=== PATIENT | male | born 1945 ===

== ENCOUNTER 2016-04-24 13:03 | Inpatient (IN) | payer OTHER, MEDICAID ==
[2016-04-21 19:31] VITALS: BMI 31.8
[2016-04-24] MEDS ORDERED: Sodium Chloride 3% for Inhalation 4 ML VIAL.NEB IH PRN (16:21)
[2016-04-24] MEDS ORDERED: Tuberculin 5 Units/0.1 ml Inj ID ONE (16:42)
[2016-04-24] MEDS ORDERED: Piperacillin/Tazobact 3.375 GM in Sodium Chloride 0.9% 100 ML IVPB SCH (16:45)
[2016-04-24 16:59] VITALS: RESP 20
[2016-04-24] MEDS ORDERED: MethylPREDNISolone 40 mg Vial IV SCH (17:00)
[2016-04-24] MEDS: methylPREDNISolone 40 MG in Sodium Chloride 0.9% 50 ML IVPB SCH (17:56)
[2016-04-24] MEDS: Albuterol-Ipratrop 3 mg / 0.5 (3 ml) UD INH SCH ×2 (19:54→23:51)
[2016-04-24] MEDS: Acetylcysteine 10% 4 ML IH SCH (19:54)
[2016-04-24] MEDS: Budesonide 0.25 mg/2 ml Inhal Susp UD INH SCH (19:55)
[2016-04-24] MEDS ORDERED: Patient's Own Med (Vancomycin 1 Gm [Vancomycin 1gm In Normal Saline Addvantage] 1 GM) IVPB SCH (21:00)
[2016-04-24] MEDS ORDERED: Patient's Own Med (Ciprofloxacin Iv 400 MG) IVPB SCH (21:00)
[2016-04-24] MEDS: Ciprofloxacin 400mg/200ml D5W 200 ML IVPB SCH (21:07)
[2016-04-24] MEDS: Piperacillin/Tazobact 3.375 GM in Sodium Chloride 0.9% 100 ML IVPB SCH (21:07)
[2016-04-24] MEDS: Promethazine/Cod 6.25mg-10mg/5ml Syr UD PO PRN (21:59)
[2016-04-24] MEDS ORDERED: Patient's Own Med (Piperacill/Tazo 3.375gm In Dex [Zosyn 3.375 Gm Iv] 3.375 GM) IVPB SCH (22:00)
[2016-04-25] MEDS: methylPREDNISolone 40 MG in Sodium Chloride 0.9% 50 ML IVPB SCH ×3 (01:45→17:45)
[2016-04-25] MEDS: Piperacillin/Tazobact 3.375 GM in Sodium Chloride 0.9% 100 ML IVPB SCH ×4 (04:31→23:33)
[2016-04-25] MEDS: Albuterol-Ipratrop 3 mg / 0.5 (3 ml) UD INH SCH ×6 (04:50→23:27)
[2016-04-25] MEDS: Budesonide 0.25 mg/2 ml Inhal Susp UD INH SCH ×2 (08:02→20:02)
[2016-04-25] MEDS: Acetylcysteine 10% 4 ML IH SCH ×4 (08:02→20:02)
[2016-04-25] MEDS: Ciprofloxacin 400mg/200ml D5W 200 ML IVPB SCH ×2 (09:00→20:49)
[2016-04-25] MEDS: Metoprolol Succinate 50 mg XL Tab PO SCH (09:01)
[2016-04-25] MEDS: Pantoprazole 40 mg EC Tab PO SCH (09:01)
[2016-04-25] MEDS: Promethazine/Cod 6.25mg-10mg/5ml Syr UD PO PRN ×2 (09:08→22:37)
--- NOTE | 2016-04-25 16:42 | CP.PCM.HP ---
History of Present Illness - History of Present Illness History of Present Illness: 70 y/o M, seen in ER [facility] initially on 04/21/16 c/o of SOB, persistent productive cough, tactile fever for one week [employer] with no relief. Pt was admitted with Dx of COPD Exacerbation, also was Tx for CAD, HTN, R/A, O/A. On 04/24/16, Pt was stable to be transferred to TCU unit to continue abx tx for COPD Exacerbation. On today's visit, Pt continue with cough, scanty amount of sputum, c/o of difficulty to bring up phlegms. Present on Admission - Present on Admission Any Indicators Present on Admission: No Review of Systems - Constitutional Constitutional: Other (negative) - EENT Eyes: Other (Cataract L eye) Ears: Other (negative) Nose/Mouth/Throat: Other (negative) - Cardiovascular Cardiovascular: Other (negative) - Respiratory Respiratory: Cough, Dyspnea on Exertion, Wheezing, Chest Congestion - Gastrointestinal Gastrointestinal: Other (negative) - Genitourinary Genitourinary: Other (negative) - Musculoskeletal Musculoskeletal: Arthralgias - Integumentary Integumentary: Other (negative) - Neurological Neurological: Other (negative) - Psychiatric Psychiatric: Abnormal Sleep Pattern - Endocrine Endocrine: Other (negative) - Hematologic/Lymphatic Hematologic: Other (negative) Past Patient History - Past Medical History & Family History Past Medical History?: Yes Pertinent Family History: Unknown - Past Social History Smoking Status: Former Smoker Alcohol: None Drugs: Denies Home Situation {Lives}: Alone - CARDIAC Hx Cardiac Disorders: Yes (CAD, stent x1) Hx Hypertension: Yes - PULMONARY Hx Respiratory Disorders: Yes Hx Chronic Obstructive Pulmonary Disease (COPD): Yes Hx Emphysema: Yes Hx Sleep Apnea: Yes - NEUROLOGICAL Hx Neurological Disorder: No - HEENT Hx HEENT Problems: Yes Hx Cataracts: Yes (L eye) - RENAL Hx Chronic Kidney Disease: No - ENDOCRINE/METABOLIC Hx Endocrine Disorders: No - HEMATOLOGICAL/ONCOLOGICAL Hx Blood Disorders: Yes Hx AIDS: No Hx Anemia: Yes Hx Human Immunodeficiency Virus (HIV): No - INTEGUMENTARY Hx Dermatological Problems: No - MUSCULOSKELETAL/RHEUMATOLOGICAL Hx Musculoskeletal Disorders: Yes Hx Arthritis: Yes Hx Falls: No Hx Rheumatoid Arthritis: Yes - GASTROINTESTINAL Hx Gastrointestinal Disorders: No - GENITOURINARY/GYNECOLOGICAL Hx Genitourinary Disorders: No - PSYCHIATRIC Hx Psychophysiologic Disorder: No Hx Substance Use: No - SURGICAL HISTORY Hx Surgeries: Yes Hx Coronary Stent: Yes (x 1) Other/Comment: 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 - ANESTHESIA Hx Anesthesia: Yes Hx Anesthesia Reactions: No Hx Malignant Hyperthermia: No Meds Allergies/Adverse Reactions: Allergies Allergy/AdvReac Type Severity Reaction Status Date / Time No Known Allergies Allergy Verified 04/24/16 15:48 Physical Exam - Constitutional Appears: No Acute Distress - Head Exam Head Exam: NORMAL INSPECTION - Eye Exam Eye Exam: PERRL - ENT Exam ENT Exam: Normal Oropharynx - Neck Exam Neck exam: Positive for: Normal Inspection - Respiratory Exam Respiratory Exam: Decreased Breath Sounds (at bases), Rhonchi (b/l) - Cardiovascular Exam Cardiovascular Exam: REGULAR RHYTHM - GI/Abdominal Exam GI & Abdominal Exam: Normal Bowel Sounds, Soft - Extremities Exam Extremities exam: Positive for: normal inspection - Back Exam Back exam: NORMAL INSPECTION - Neurological Exam Neurological exam: Alert, Oriented x3 Additional comments: No motor sensory deficit - Psychiatric Exam Psychiatric exam: Normal Affect, Normal Mood - Skin Skin Exam: Normal Color, Warm Results - Vital Signs Recent Vital Signs: Last Vital Signs Temp 97.5 F L 04/25/16 08:45 Pulse 64 04/25/16 14:47 Resp 20 04/25/16 08:45 BP 116/74 04/25/16 10:55 Pulse Ox 95 04/25/16 14:47 reviewed William Assessment & Plan - Assessment and Plan (Free Text) Assessment: COPD Exacerbation Acute high CAD Chronic HTN Chronic R/A Chronic O/A Chronic. Plan: Continue Cipro, Zosyn, Duoneb, Solumedrol and rest of medications, f/u PT,OT eval. - Date & Time Date: 04/25/16 Time: 11:00
[2016-04-26] MEDS: methylPREDNISolone 40 MG in Sodium Chloride 0.9% 50 ML IVPB SCH ×3 (00:32→16:37)
[2016-04-26] MEDS: Albuterol-Ipratrop 3 mg / 0.5 (3 ml) UD INH SCH ×6 (04:45→23:12)
[2016-04-26] MEDS: Piperacillin/Tazobact 3.375 GM in Sodium Chloride 0.9% 100 ML IVPB SCH ×3 (06:07→17:16)
[2016-04-26] MEDS: Budesonide 0.25 mg/2 ml Inhal Susp UD INH SCH ×2 (07:17→19:28)
[2016-04-26] MEDS: Acetylcysteine 10% 4 ML IH SCH ×2 (07:18→19:28)
[2016-04-26] MEDS: Pantoprazole 40 mg EC Tab PO SCH (09:27)
[2016-04-26] MEDS: Metoprolol Succinate 50 mg XL Tab PO SCH (09:27)
[2016-04-26] MEDS: Ciprofloxacin 400mg/200ml D5W 200 ML IVPB SCH (09:47)
[2016-04-26] MEDS: Promethazine/Cod 6.25mg-10mg/5ml Syr UD PO PRN ×2 (09:55→22:55)
--- NOTE | 2016-04-26 16:16 | CP.PCM.PN ---
Subjective - Date & Time of Evaluation Date of Evaluation: 04/26/16 - Subjective Subjective: F/U COPD Exacerbation. Cough with scanty phlegms, chest congestion., lesions R gluteal noticed by Patient Objective - Vital Signs/Intake and Output Vital Signs (last 24 hours): Temp Pulse Resp BP Pulse Ox 97.3 F L 72 20 128/80 95 04/26/16 08:42 04/26/16 09:27 04/26/16 08:42 04/26/16 09:27 04/26/16 08:42 - Medications Medications: Current Medications Acetylcysteine (Mucomyst 10% 4ml) 3 ml IH RTID [facility] Last Admin: 04/26/16 07:18 Dose: 3 ml Acyclovir (Zovirax) 800 mg PO 5XD [facility] Acyclovir (Zovirax 5% Oint) 1 applic EXT Q4 [facility] Albuterol/Ipratropium (Duoneb 3 Mg/0.5 Mg (3 Ml) Ud) 3 ml INH RQ4 [facility] Last Admin: 04/26/16 15:59 Dose: 3 ml Aspirin (Ecotrin) 81 mg PO DAILY [facility] Last Admin: 04/26/16 09:28 Dose: 81 mg Atorvastatin Calcium (Lipitor) 40 mg PO HS [facility] Last Admin: 04/25/16 21:00 Dose: 40 mg Budesonide (Pulmicort Respules) 0.25 mg INH RBID [facility] Last Admin: 04/26/16 07:17 Dose: 0.25 mg Celecoxib (Celebrex) 200 mg PO DAILY [facility] Last Admin: 04/26/16 09:27 Dose: 200 mg Folic Acid (Folic Acid) 1 mg PO DAILY [facility] Last Admin: 04/26/16 09:28 Dose: 1 mg Furosemide (Lasix) 40 mg PO DAILY [facility] Last Admin: 04/26/16 09:27 Dose: 40 mg Methylprednisolone 40 mg/ (Sodium Chloride) 50 mls @ 100 mls/hr IVPB Q8H [facility] Last Admin: 04/26/16 09:29 Dose: 100 mls/hr Ciprofloxacin (Cipro 400mg/200ml Dsw) 200 mls @ 200 mls/hr IVPB Q12 [facility] Last Admin: 04/26/16 09:47 Dose: 200 mls/hr Piperacillin Sod/Tazobactam (Sod 3.375 gm/ Sodium Chloride) 100 mls @ 100 mls/ hr IVPB 0000,0600,1200,1800 [facility] Last Admin: 04/26/16 11:35 Dose: 100 mls/hr Metoprolol Succinate (Toprol Xl) 50 mg PO DAILY [facility] Last Admin: 04/26/16 09:27 Dose: 50 mg Pantoprazole Sodium (Protonix Ec Tab) 40 mg PO DAILY [facility] Last Admin: 04/26/16 09:27 Dose: 40 mg Promethazine HCl/Codeine (Phenergan/Codeine Oral Syrup) 10 ml PO Q6 PRN PRN Reason: Cough Last Admin: 04/26/16 09:55 Dose: 10 ml Tamsulosin HCl (Flomax) 0.4 mg PO HS [facility] Last Admin: 04/25/16 21:00 Dose: 0.4 mg Ticagrelor (Brilinta) 90 mg PO BID [facility] Last Admin: 04/26/16 09:28 Dose: 90 mg Zolpidem Tartrate (Ambien) 10 mg PO HS PRN PRN Reason: Insomnia Last Admin: 04/25/16 22:35 Dose: 10 mg - Constitutional Appears: No Acute Distress - Head Exam Head Exam: NORMAL INSPECTION - Eye Exam Eye Exam: PERRL - ENT Exam ENT Exam: Normal Oropharynx - Neck Exam Neck Exam: Normal Inspection - Respiratory Exam Respiratory Exam: Rhonchi (scattered b/l), Wheezes - Cardiovascular Exam Cardiovascular Exam: REGULAR RHYTHM - GI/Abdominal Exam GI & Abdominal Exam: Soft, Normal Bowel Sounds - Extremities Exam Extremities Exam: Normal Inspection - Back Exam Additional comments: Lesion R Buttock - Neurological Exam Neurological Exam: Alert, Oriented x3. absent: Motor Sensory Deficit - Psychiatric Exam Psychiatric exam: Normal Mood - Skin Skin Exam: Vesicles (small cluster of vesicles almost dry with erythematous base R gluteal), Warm Assessment and Plan - Assessment and Plan (Free Text) Assessment: COPD Exacerbation Acute CAD Chronic HTN Chronic R/A Chronic O/A Chronic R Gluteal Herpes Zoster Plan: Continue current Tx., add Acyclovir and Zovirax
[2016-04-26] MEDS: Acyclovir 5% OINT 5 APPLIC/5 GM EXT SCH ×2 (16:35→22:34)
[2016-04-26] MEDS ORDERED: Sodium Chloride 3% for Inhalation 4 ML VIAL.NEB IH PRN (16:55)
[2016-04-27] MEDS: methylPREDNISolone 40 MG in Sodium Chloride 0.9% 50 ML IVPB SCH ×3 (00:59→16:46)
[2016-04-27] MEDS: Piperacillin/Tazobact 3.375 GM in Sodium Chloride 0.9% 100 ML IVPB SCH ×5 (01:04→23:36)
[2016-04-27] MEDS: Acyclovir 5% OINT 5 APPLIC/5 GM EXT SCH ×6 (01:06→21:05)
[2016-04-27] MEDS: Albuterol-Ipratrop 3 mg / 0.5 (3 ml) UD INH SCH ×5 (04:53→19:54)
[2016-04-27] MEDS: Acetylcysteine 10% 4 ML IH SCH ×3 (07:24→19:54)
[2016-04-27] MEDS: Budesonide 0.25 mg/2 ml Inhal Susp UD INH SCH ×2 (07:25→19:54)
[2016-04-27 07:47] LABS: HEMATOCRIT 39.1 % (35.0-51.0); MEAN CELL VOLUME 88.5 fl (80.0-94.0); MEAN CORPUSCULAR HEMOGLOBIN 29.1 pg (27.0-31.0); MEAN CORPUSCULAR HGB CONC 32.9 g/dL (33.0-37.0); RED CELL DISTRIBUTION WIDTH 16.2 % (11.5-14.5); WHITE BLOOD COUNT 21.8 K/uL (4.8-10.8)
[2016-04-27 07:55] LABS: BLOOD UREA NITROGEN 39 mg/dl (9-20); CALCIUM 8.6 mg/dL (8.4-10.2); CARBON DIOXIDE 29 mmol/L (22-30); CHLORIDE 101 mmol/L (98-107); GFR AFRICAN-AMERICAN > 60; GLUCOSE,RANDOM 138 mg/dL (75-110); POTASSIUM 4.3 MMOL/L (3.6-5.0); SODIUM 135 mmol/l (132-148)
[2016-04-27] MEDS: Metoprolol Succinate 50 mg XL Tab PO SCH (08:55)
[2016-04-27] MEDS: Pantoprazole 40 mg EC Tab PO SCH (08:55)
[2016-04-27] MEDS: Promethazine/Cod 6.25mg-10mg/5ml Syr UD PO PRN (08:59)
--- NOTE | 2016-04-27 10:20 | RAD ---
HISTORY: md COMPARISON: Comparison made with chest radiographs and CT scan chest both dated 04/21/2016 . TECHNIQUE: Chest PA and lateral FINDINGS: LUNGS: Poor inspiration with low lung volumes crowded bronchovascular markings and mild bibasilar atelectasis. . Concomitant mild scarring both lung bases. Mild fibrosis - scarring and honeycombing changes in the upper lobes right greater than left also again noted the however all these changes are seen to better advantage on prior CT scan of the chest. PLEURA: No significant pleural effusion identified. No pneumothorax apparent. CARDIOVASCULAR: Heart size within range of normal. . OSSEOUS STRUCTURES: Mild multilevel degenerative spondylosis of the thoracic spine. VISUALIZED UPPER ABDOMEN: Normal. OTHER FINDINGS: None. IMPRESSION: Poor inspiration with low lung volumes crowded bronchovascular markings and mild bibasilar atelectasis. . Concomitant mild scarring both lung bases. Mild fibrosis - scarring and honeycombing changes in the upper lobes right greater than left also again noted the however all these changes are seen to better advantage on prior CT scan of the chest.
--- NOTE | 2016-04-27 21:44 | CP.PCM.PN ---
Subjective - Date & Time of Evaluation Date of Evaluation: 04/27/16 - Subjective Subjective: F/U COPD Exacerbation. Pt Awake, no A/D, with cough with decreased amount of phlegms Objective - Vital Signs/Intake and Output Vital Signs (last 24 hours): Temp Pulse Resp BP Pulse Ox 97.7 F 68 20 121/71 94 L 04/27/16 20:23 04/27/16 20:23 04/27/16 20:23 04/27/16 20:23 04/27/16 20:23 - Medications Medications: Current Medications Acetylcysteine (Mucomyst 10% 4ml) 3 ml IH RTID [facility] Last Admin: 04/27/16 19:54 Dose: 3 ml Acyclovir (Zovirax) 800 mg PO 5XD [facility] Last Admin: 04/27/16 21:04 Dose: 800 mg Acyclovir (Zovirax 5% Oint) 1 applic EXT Q4 [facility] Last Admin: 04/27/16 21:05 Dose: 1 applic Albuterol/Ipratropium (Duoneb 3 Mg/0.5 Mg (3 Ml) Ud) 3 ml INH RQ4 [facility] Last Admin: 04/27/16 19:54 Dose: 3 ml Aspirin (Ecotrin) 81 mg PO DAILY [facility] Last Admin: 04/27/16 08:56 Dose: 81 mg Atorvastatin Calcium (Lipitor) 40 mg PO HS [facility] Last Admin: 04/27/16 21:04 Dose: 40 mg Budesonide (Pulmicort Respules) 0.25 mg INH RBID [facility] Last Admin: 04/27/16 19:54 Dose: 0.25 mg Celecoxib (Celebrex) 200 mg PO DAILY [facility] Last Admin: 04/27/16 08:56 Dose: 200 mg Folic Acid (Folic Acid) 1 mg PO DAILY [facility] Last Admin: 04/27/16 08:57 Dose: 1 mg Furosemide (Lasix) 40 mg PO DAILY [facility] Last Admin: 04/27/16 10:00 Dose: 40 mg Methylprednisolone 40 mg/ (Sodium Chloride) 50 mls @ 100 mls/hr IVPB Q8H [facility] Last Admin: 04/27/16 16:46 Dose: 100 mls/hr Piperacillin Sod/Tazobactam (Sod 3.375 gm/ Sodium Chloride) 100 mls @ 100 mls/ hr IVPB 0000,0600,1200,1800 [facility] Last Admin: 04/27/16 17:20 Dose: 100 mls/hr Metoprolol Succinate (Toprol Xl) 50 mg PO DAILY [facility] Last Admin: 04/27/16 08:55 Dose: 50 mg Pantoprazole Sodium (Protonix Ec Tab) 40 mg PO DAILY [facility] Last Admin: 04/27/16 08:55 Dose: 40 mg Promethazine HCl/Codeine (Phenergan/Codeine Oral Syrup) 10 ml PO Q6 PRN PRN Reason: Cough Last Admin: 04/27/16 08:59 Dose: 10 ml Tamsulosin HCl (Flomax) 0.4 mg PO HS [facility] Last Admin: 04/27/16 21:04 Dose: 0.4 mg Ticagrelor (Brilinta) 90 mg PO BID [facility] Last Admin: 04/27/16 16:45 Dose: 90 mg Zolpidem Tartrate (Ambien) 10 mg PO HS PRN PRN Reason: Insomnia Last Admin: 04/25/16 22:35 Dose: 10 mg - Labs Labs: 04/27/16 05:30 04/27/16 05:30 - Constitutional Appears: No Acute Distress - Head Exam Head Exam: NORMAL INSPECTION - Eye Exam Eye Exam: PERRL - ENT Exam ENT Exam: Normal Oropharynx - Neck Exam Neck Exam: Normal Inspection - Respiratory Exam Respiratory Exam: Rhonchi (scattered b/l), Wheezes - Cardiovascular Exam Cardiovascular Exam: REGULAR RHYTHM - GI/Abdominal Exam GI & Abdominal Exam: Soft, Normal Bowel Sounds - Extremities Exam Extremities Exam: Normal Inspection - Back Exam Additional comments: R buttock dry crusted lesion. - Neurological Exam Neurological Exam: Alert, Oriented x3. absent: Motor Sensory Deficit - Psychiatric Exam Psychiatric exam: Normal Mood - Skin Skin Exam: Vesicles (small amount of almost dry blisters with erythematous base) , Warm Assessment and Plan - Assessment and Plan (Free Text) Assessment: COPD Exacerbation Acute. CAD Chronic HTN Chronic R/A Chronic O/A Chronic. Herpes Zoster Plan: Continue Solumedrol Duoneb, Zosyn, Pulmicort , Zovirax ,Acyclovir and rest of Tx.
[2016-04-28] MEDS: Albuterol-Ipratrop 3 mg / 0.5 (3 ml) UD INH SCH ×6 (00:17→19:08)
[2016-04-28] MEDS: methylPREDNISolone 40 MG in Sodium Chloride 0.9% 50 ML IVPB SCH ×4 (00:45→23:59)
[2016-04-28] MEDS: Acyclovir 5% OINT 5 APPLIC/5 GM EXT SCH ×7 (00:47→23:59)
[2016-04-28] MEDS: Promethazine/Cod 6.25mg-10mg/5ml Syr UD PO PRN ×2 (01:01→21:26)
[2016-04-28] MEDS: Piperacillin/Tazobact 3.375 GM in Sodium Chloride 0.9% 100 ML IVPB SCH ×4 (05:03→23:48)
[2016-04-28] MEDS: Budesonide 0.25 mg/2 ml Inhal Susp UD INH SCH ×2 (07:33→19:08)
[2016-04-28] MEDS: Acetylcysteine 10% 4 ML IH SCH ×3 (07:33→19:08)
[2016-04-28] MEDS: Pantoprazole 40 mg EC Tab PO SCH (08:25)
[2016-04-28] MEDS: Metoprolol Succinate 50 mg XL Tab PO SCH (08:26)
--- NOTE | 2016-04-28 16:25 | CP.PCM.PN ---
Subjective - Date & Time of Evaluation Date of Evaluation: 04/28/16 Time of Evaluation: 12:30 - Subjective Subjective: Cough with scanty amount of flegm improved , less Chest congestion Objective - Vital Signs/Intake and Output Vital Signs (last 24 hours): Temp Pulse Resp BP Pulse Ox 95.5 F L 70 20 102/60 96 04/28/16 16:18 04/28/16 16:18 04/28/16 16:18 04/28/16 16:18 04/28/16 16:18 - Medications Medications: Current Medications Acetylcysteine (Mucomyst 10% 4ml) 3 ml IH RTID [facility] Last Admin: 04/28/16 13:36 Dose: 3 ml Acyclovir (Zovirax) 800 mg PO 5XD [facility] Last Admin: 04/28/16 12:47 Dose: 800 mg Acyclovir (Zovirax 5% Oint) 1 applic EXT Q4 [facility] Last Admin: 04/28/16 12:47 Dose: 1 applic Albuterol/Ipratropium (Duoneb 3 Mg/0.5 Mg (3 Ml) Ud) 3 ml INH RQ4 [facility] Last Admin: 04/28/16 13:36 Dose: 3 ml Aspirin (Ecotrin) 81 mg PO DAILY [facility] Last Admin: 04/28/16 08:25 Dose: 81 mg Atorvastatin Calcium (Lipitor) 40 mg PO HS [facility] Last Admin: 04/27/16 21:04 Dose: 40 mg Budesonide (Pulmicort Respules) 0.25 mg INH RBID [facility] Last Admin: 04/28/16 07:33 Dose: 0.25 mg Celecoxib (Celebrex) 200 mg PO DAILY [facility] Last Admin: 04/28/16 08:25 Dose: 200 mg Folic Acid (Folic Acid) 1 mg PO DAILY [facility] Last Admin: 04/28/16 08:25 Dose: 1 mg Furosemide (Lasix) 40 mg PO DAILY [facility] Last Admin: 04/28/16 08:25 Dose: 40 mg Methylprednisolone 40 mg/ (Sodium Chloride) 50 mls @ 100 mls/hr IVPB Q8H [facility] Last Admin: 04/28/16 08:09 Dose: 100 mls/hr Piperacillin Sod/Tazobactam (Sod 3.375 gm/ Sodium Chloride) 100 mls @ 100 mls/ hr IVPB 0000,0600,1200,1800 [facility] Last Admin: 04/28/16 12:47 Dose: 100 mls/hr Metoprolol Succinate (Toprol Xl) 50 mg PO DAILY [facility] Last Admin: 04/28/16 08:26 Dose: 50 mg Pantoprazole Sodium (Protonix Ec Tab) 40 mg PO DAILY [facility] Last Admin: 04/28/16 08:25 Dose: 40 mg Promethazine HCl/Codeine (Phenergan/Codeine Oral Syrup) 10 ml PO Q6 PRN PRN Reason: Cough Last Admin: 04/28/16 01:01 Dose: 10 ml Tamsulosin HCl (Flomax) 0.4 mg PO HS [facility] Last Admin: 04/27/16 21:04 Dose: 0.4 mg Ticagrelor (Brilinta) 90 mg PO BID [facility] Last Admin: 04/28/16 08:25 Dose: 90 mg Zolpidem Tartrate (Ambien) 10 mg PO HS PRN PRN Reason: Insomnia Last Admin: 04/27/16 22:30 Dose: 10 mg - Labs Labs: 04/27/16 05:30 04/27/16 05:30 - Constitutional Appears: No Acute Distress - Head Exam Head Exam: NORMAL INSPECTION - Eye Exam Eye Exam: PERRL - ENT Exam ENT Exam: Normal Oropharynx - Neck Exam Neck Exam: Normal Inspection - Respiratory Exam Respiratory Exam: Decreased Breath Sounds (at bases), Rhonchi (scattered) - Cardiovascular Exam Cardiovascular Exam: REGULAR RHYTHM - GI/Abdominal Exam GI & Abdominal Exam: Soft, Normal Bowel Sounds - Extremities Exam Extremities Exam: Normal Inspection - Back Exam Additional comments: R buttock dry crusted lesion - Neurological Exam Neurological Exam: Alert, CN II-XII Intact, Oriented x3. absent: Motor Sensory Deficit - Psychiatric Exam Psychiatric exam: Normal Mood - Skin Skin Exam: Warm Assessment and Plan - Assessment and Plan (Free Text) Assessment: COPD Exacerbation Acute high CAD Chronic HTN Chronic R/A Chronic O/A Chronic Herpes Zoster Plan: CXR Chronic changes as per previous CT Scan Chest , Patient today with some improvement , Continue current Rx,
[2016-04-29] MEDS: Albuterol-Ipratrop 3 mg / 0.5 (3 ml) UD INH SCH ×7 (01:17→23:34)
[2016-04-29] MEDS: Piperacillin/Tazobact 3.375 GM in Sodium Chloride 0.9% 100 ML IVPB SCH ×4 (05:01→23:42)
[2016-04-29] MEDS: Acyclovir 5% OINT 5 APPLIC/5 GM EXT SCH ×5 (05:01→21:39)
[2016-04-29] MEDS: Budesonide 0.25 mg/2 ml Inhal Susp UD INH SCH ×2 (08:29→19:28)
[2016-04-29] MEDS: Acetylcysteine 10% 4 ML IH SCH ×4 (08:30→19:28)
[2016-04-29] MEDS: methylPREDNISolone 40 MG in Sodium Chloride 0.9% 50 ML IVPB SCH ×2 (09:06→17:04)
[2016-04-29] MEDS: Pantoprazole 40 mg EC Tab PO SCH (09:06)
[2016-04-29] MEDS: Metoprolol Succinate 50 mg XL Tab PO SCH (09:06)
[2016-04-29] MEDS: Promethazine/Cod 6.25mg-10mg/5ml Syr UD PO PRN (21:38)
[2016-04-30] MEDS: Acyclovir 5% OINT 5 APPLIC/5 GM EXT SCH ×6 (00:18→21:29)
[2016-04-30] MEDS: methylPREDNISolone 40 MG in Sodium Chloride 0.9% 50 ML IVPB SCH ×3 (00:18→17:02)
[2016-04-30] MEDS: Albuterol-Ipratrop 3 mg / 0.5 (3 ml) UD INH SCH ×6 (04:46→23:36)
[2016-04-30] MEDS: Piperacillin/Tazobact 3.375 GM in Sodium Chloride 0.9% 100 ML IVPB SCH ×3 (04:59→17:47)
[2016-04-30] MEDS: Acetylcysteine 10% 4 ML IH SCH ×3 (07:38→19:27)
[2016-04-30] MEDS: Budesonide 0.25 mg/2 ml Inhal Susp UD INH SCH ×2 (07:38→19:26)
[2016-04-30] MEDS: Pantoprazole 40 mg EC Tab PO SCH (08:40)
[2016-04-30] MEDS: Metoprolol Succinate 50 mg XL Tab PO SCH (08:40)
--- NOTE | 2016-04-30 13:05 | CP.PCM.PN ---
Subjective - Date & Time of Evaluation Date of Evaluation: 04/30/16 Time of Evaluation: 10:00 - Subjective Subjective: F/U COPD Exacerbation. Pt awake, no A/D, mild SOB, occasional productive cough Objective - Vital Signs/Intake and Output Vital Signs (last 24 hours): Temp Pulse Resp BP Pulse Ox 96.8 F L 60 20 139/88 98 04/30/16 07:57 04/30/16 08:40 04/30/16 07:57 04/30/16 08:40 04/30/16 07:57 - Medications Medications: Current Medications Acetylcysteine (Mucomyst 10% 4ml) 3 ml IH RTID [facility] Last Admin: 04/30/16 07:38 Dose: 3 ml Acyclovir (Zovirax) 800 mg PO 5XD [facility] Last Admin: 04/30/16 12:54 Dose: 800 mg Acyclovir (Zovirax 5% Oint) 1 applic EXT Q4 [facility] Last Admin: 04/30/16 12:54 Dose: 1 applic Albuterol/Ipratropium (Duoneb 3 Mg/0.5 Mg (3 Ml) Ud) 3 ml INH RQ4 [facility] Last Admin: 04/30/16 07:38 Dose: 3 ml Aspirin (Ecotrin) 81 mg PO DAILY [facility] Last Admin: 04/30/16 08:39 Dose: 81 mg Atorvastatin Calcium (Lipitor) 40 mg PO HS [facility] Last Admin: 04/29/16 21:38 Dose: 40 mg Budesonide (Pulmicort Respules) 0.25 mg INH RBID [facility] Last Admin: 04/30/16 07:38 Dose: 0.25 mg Celecoxib (Celebrex) 200 mg PO DAILY [facility] Last Admin: 04/30/16 08:39 Dose: 200 mg Folic Acid (Folic Acid) 1 mg PO DAILY [facility] Last Admin: 04/30/16 08:40 Dose: 1 mg Furosemide (Lasix) 40 mg PO DAILY [facility] Last Admin: 04/30/16 08:39 Dose: 40 mg Methylprednisolone 40 mg/ (Sodium Chloride) 50 mls @ 100 mls/hr IVPB Q8H [facility] Last Admin: 04/30/16 08:38 Dose: 100 mls/hr Piperacillin Sod/Tazobactam (Sod 3.375 gm/ Sodium Chloride) 100 mls @ 100 mls/ hr IVPB 0000,0600,1200,1800 [facility] Last Admin: 04/30/16 12:53 Dose: 100 mls/hr Metoprolol Succinate (Toprol Xl) 50 mg PO DAILY [facility] Last Admin: 04/30/16 08:40 Dose: 50 mg Pantoprazole Sodium (Protonix Ec Tab) 40 mg PO DAILY [facility] Last Admin: 04/30/16 08:40 Dose: 40 mg Promethazine HCl/Codeine (Phenergan/Codeine Oral Syrup) 10 ml PO Q6 PRN PRN Reason: Cough Last Admin: 04/29/16 21:38 Dose: 10 ml Tamsulosin HCl (Flomax) 0.4 mg PO HS [facility] Last Admin: 04/29/16 21:38 Dose: 0.4 mg Ticagrelor (Brilinta) 90 mg PO BID [facility] Last Admin: 04/30/16 08:39 Dose: 90 mg Zolpidem Tartrate (Ambien) 10 mg PO HS PRN PRN Reason: Insomnia Last Admin: 04/29/16 21:38 Dose: 10 mg - Labs Labs: 04/27/16 05:30 04/27/16 05:30 - Constitutional Appears: No Acute Distress - Head Exam Head Exam: NORMAL INSPECTION - Eye Exam Eye Exam: PERRL - ENT Exam ENT Exam: Normal Oropharynx - Neck Exam Neck Exam: Normal Inspection - Respiratory Exam Respiratory Exam: Decreased Breath Sounds (at bases), Rhonchi (scattered) - Cardiovascular Exam Cardiovascular Exam: REGULAR RHYTHM - GI/Abdominal Exam GI & Abdominal Exam: Soft, Normal Bowel Sounds - Extremities Exam Extremities Exam: Normal Inspection - Back Exam Additional comments: R buttock dry crusted lesion - Neurological Exam Neurological Exam: Alert, CN II-XII Intact, Oriented x3. absent: Motor Sensory Deficit - Psychiatric Exam Psychiatric exam: Normal Mood - Skin Skin Exam: Warm Assessment and Plan - Assessment and Plan (Free Text) Assessment: COPD Exacerbation Acute high Herpes Zoster R buttock Acute high Improving. CAD Chronic HTN Chronic R/A Chronic O/A Chronic. Plan: Continue Isolation, Continue Zosyn, Duoneb, Mucomyst, Solumedrol, Promethazyne with Co, Acyclovir and rest of medication, PT, OT.
[2016-04-30 15:57] LABS: VARICELLA-ZOSTER AB (IGM) 1.05 (<=0.90)
[2016-04-30 20:16] LABS: VARICELLA-ZOSTER AB (IGG) 1.89 (>/=1.10)
[2016-04-30] MEDS: Promethazine/Cod 6.25mg-10mg/5ml Syr UD PO PRN (21:28)
[2016-05-01] MEDS: Piperacillin/Tazobact 3.375 GM in Sodium Chloride 0.9% 100 ML IVPB SCH ×4 (00:55→17:22)
[2016-05-01] MEDS: methylPREDNISolone 40 MG in Sodium Chloride 0.9% 50 ML IVPB SCH ×2 (00:56→08:12)
[2016-05-01] MEDS: Acyclovir 5% OINT 5 APPLIC/5 GM EXT SCH ×6 (02:15→21:12)
[2016-05-01] MEDS: Albuterol-Ipratrop 3 mg / 0.5 (3 ml) UD INH SCH ×5 (05:08→19:38)
[2016-05-01] MEDS: Acetylcysteine 10% 4 ML IH SCH ×3 (07:51→19:38)
[2016-05-01] MEDS: Budesonide 0.25 mg/2 ml Inhal Susp UD INH SCH ×2 (07:51→19:38)
[2016-05-01] MEDS: Metoprolol Succinate 50 mg XL Tab PO SCH (08:13)
[2016-05-01] MEDS: Pantoprazole 40 mg EC Tab PO SCH (08:13)
--- NOTE | 2016-05-01 15:07 | CP.PCM.PN ---
Subjective - Date & Time of Evaluation Date of Evaluation: 05/01/16 - Subjective Subjective: F/U COPD Exacerbation Less cough with small amount of yellowish phlegms, less chest congestion. Objective - Vital Signs/Intake and Output Vital Signs (last 24 hours): Temp Pulse Resp BP Pulse Ox 97.7 F 61 20 148/88 98 05/01/16 09:00 05/01/16 09:00 05/01/16 09:00 05/01/16 09:00 05/01/16 09:00 - Medications Medications: Current Medications Acetylcysteine (Mucomyst 10% 4ml) 3 ml IH RTID [facility] Last Admin: 05/01/16 07:51 Dose: 3 ml Acyclovir (Zovirax) 800 mg PO 5XD [facility] Last Admin: 05/01/16 12:52 Dose: 800 mg Acyclovir (Zovirax 5% Oint) 1 applic EXT Q4 [facility] Last Admin: 05/01/16 12:53 Dose: 1 applic Albuterol/Ipratropium (Duoneb 3 Mg/0.5 Mg (3 Ml) Ud) 3 ml INH RQ4 [facility] Last Admin: 05/01/16 11:15 Dose: 3 ml Aspirin (Ecotrin) 81 mg PO DAILY [facility] Last Admin: 05/01/16 08:12 Dose: 81 mg Atorvastatin Calcium (Lipitor) 40 mg PO HS [facility] Last Admin: 04/30/16 21:28 Dose: 40 mg Budesonide (Pulmicort Respules) 0.25 mg INH RBID [facility] Last Admin: 05/01/16 07:51 Dose: 0.25 mg Celecoxib (Celebrex) 200 mg PO DAILY [facility] Last Admin: 05/01/16 08:12 Dose: 200 mg Folic Acid (Folic Acid) 1 mg PO DAILY [facility] Last Admin: 05/01/16 08:14 Dose: 1 mg Furosemide (Lasix) 40 mg PO DAILY [facility] Last Admin: 05/01/16 08:13 Dose: 40 mg Piperacillin Sod/Tazobactam (Sod 3.375 gm/ Sodium Chloride) 100 mls @ 100 mls/ hr IVPB 0000,0600,1200,1800 [facility] Last Admin: 05/01/16 12:52 Dose: 100 mls/hr Methylprednisolone 40 mg/ (Sodium Chloride) 50 mls @ 100 mls/hr IV Q12 [facility] Metoprolol Succinate (Toprol Xl) 50 mg PO DAILY [facility] Last Admin: 05/01/16 08:13 Dose: 50 mg Pantoprazole Sodium (Protonix Ec Tab) 40 mg PO DAILY [facility] Last Admin: 05/01/16 08:13 Dose: 40 mg Promethazine HCl/Codeine (Phenergan/Codeine Oral Syrup) 10 ml PO Q6 PRN PRN Reason: Cough Last Admin: 04/30/16 21:28 Dose: 10 ml Tamsulosin HCl (Flomax) 0.4 mg PO HS [facility] Last Admin: 04/30/16 21:30 Dose: 0.4 mg Ticagrelor (Brilinta) 90 mg PO BID [facility] Last Admin: 05/01/16 08:12 Dose: 90 mg Zolpidem Tartrate (Ambien) 10 mg PO HS PRN PRN Reason: Insomnia Last Admin: 04/30/16 22:50 Dose: 10 mg - Labs Labs: 04/27/16 05:30 04/27/16 05:30 - Constitutional Appears: No Acute Distress - Head Exam Head Exam: NORMAL INSPECTION - Eye Exam Eye Exam: PERRL - ENT Exam ENT Exam: Normal Oropharynx - Neck Exam Neck Exam: Normal Inspection - Respiratory Exam Respiratory Exam: Decreased Breath Sounds (at bases), Rhonchi (scattered) - Cardiovascular Exam Cardiovascular Exam: REGULAR RHYTHM - GI/Abdominal Exam GI & Abdominal Exam: Soft, Normal Bowel Sounds - Extremities Exam Extremities Exam: Normal Inspection - Back Exam Additional comments: R buttock dry crusted lesion improving - Neurological Exam Neurological Exam: Alert, CN II-XII Intact, Oriented x3. absent: Motor Sensory Deficit - Psychiatric Exam Psychiatric exam: Normal Mood - Skin Skin Exam: Warm Assessment and Plan - Assessment and Plan (Free Text) Assessment: COPD Exacerbation Acute high improved. Herpes Zoster Improved CAD Chronic HTN Chronic R/A Chronic O/A Chronic. Plan: COPD Exacerbation improved, taper steroids, DC isolation for Herpes Zoster.
[2016-05-01] MEDS: Promethazine/Cod 6.25mg-10mg/5ml Syr UD PO PRN (20:47)
[2016-05-01] MEDS: methylPREDNISolone 40 MG in Sodium Chloride 0.9% 50 ML IV SCH (20:54)
[2016-05-02] MEDS: Albuterol-Ipratrop 3 mg / 0.5 (3 ml) UD INH SCH ×7 (00:15→23:46)
[2016-05-02] MEDS: Piperacillin/Tazobact 3.375 GM in Sodium Chloride 0.9% 100 ML IVPB SCH ×5 (00:18→23:15)
[2016-05-02] MEDS: Acyclovir 5% OINT 5 APPLIC/5 GM EXT SCH ×6 (00:24→20:51)
[2016-05-02] MEDS: Acetylcysteine 10% 4 ML IH SCH ×2 (07:41→20:07)
[2016-05-02] MEDS: Budesonide 0.25 mg/2 ml Inhal Susp UD INH SCH ×2 (07:41→20:07)
[2016-05-02] MEDS: Pantoprazole 40 mg EC Tab PO SCH (08:39)
[2016-05-02] MEDS: Metoprolol Succinate 50 mg XL Tab PO SCH (08:39)
[2016-05-02] MEDS: methylPREDNISolone 40 MG in Sodium Chloride 0.9% 50 ML IV SCH ×2 (08:40→20:40)
[2016-05-02] MEDS: Promethazine/Cod 6.25mg-10mg/5ml Syr UD PO PRN (13:23)
--- NOTE | 2016-05-02 17:58 | CP.PCM.PN ---
Subjective - Date & Time of Evaluation Date of Evaluation: 05/02/16 - Subjective Subjective: F/UCOPD Exacerbation, Pt with cough, scanty yellowish phlegms, minimal chest congestion. Objective - Vital Signs/Intake and Output Vital Signs (last 24 hours): Temp Pulse Resp BP Pulse Ox 97.9 F 66 20 117/72 97 05/02/16 16:15 05/02/16 16:15 05/02/16 16:15 05/02/16 16:15 05/02/16 16:15 - Medications Medications: Current Medications Acetylcysteine (Mucomyst 10% 4ml) 3 ml IH RTID [facility] Last Admin: 05/02/16 07:41 Dose: Not Given Acyclovir (Zovirax) 800 mg PO 5XD [facility] Last Admin: 05/02/16 17:25 Dose: 800 mg Acyclovir (Zovirax 5% Oint) 1 applic EXT Q4 [facility] Last Admin: 05/02/16 17:26 Dose: 1 applic Albuterol/Ipratropium (Duoneb 3 Mg/0.5 Mg (3 Ml) Ud) 3 ml INH RQ4 [facility] Last Admin: 05/02/16 15:54 Dose: 3 ml Aspirin (Ecotrin) 81 mg PO DAILY [facility] Last Admin: 05/02/16 08:39 Dose: 81 mg Atorvastatin Calcium (Lipitor) 40 mg PO HS [facility] Last Admin: 05/01/16 21:12 Dose: 40 mg Budesonide (Pulmicort Respules) 0.25 mg INH RBID [facility] Last Admin: 05/02/16 07:41 Dose: 0.25 mg Celecoxib (Celebrex) 200 mg PO DAILY [facility] Last Admin: 05/02/16 08:39 Dose: 200 mg Folic Acid (Folic Acid) 1 mg PO DAILY [facility] Last Admin: 05/02/16 08:39 Dose: 1 mg Furosemide (Lasix) 40 mg PO DAILY [facility] Last Admin: 05/02/16 08:39 Dose: 40 mg Guaifenesin (Mucinex La) 600 mg PO Q12 [facility] Piperacillin Sod/Tazobactam (Sod 3.375 gm/ Sodium Chloride) 100 mls @ 100 mls/ hr IVPB 0000,0600,1200,1800 [facility] Last Admin: 05/02/16 17:25 Dose: 100 mls/hr Methylprednisolone 40 mg/ (Sodium Chloride) 50 mls @ 100 mls/hr IV Q12 [facility] Last Admin: 05/02/16 08:40 Dose: 100 mls/hr Metoprolol Succinate (Toprol Xl) 50 mg PO DAILY [facility] Last Admin: 05/02/16 08:39 Dose: 50 mg Pantoprazole Sodium (Protonix Ec Tab) 40 mg PO DAILY [facility] Last Admin: 05/02/16 08:39 Dose: 40 mg Promethazine HCl/Codeine (Phenergan/Codeine Oral Syrup) 10 ml PO Q6 PRN PRN Reason: Cough Last Admin: 05/02/16 13:23 Dose: 10 ml Tamsulosin HCl (Flomax) 0.4 mg PO HS [facility] Last Admin: 05/01/16 21:12 Dose: 0.4 mg Ticagrelor (Brilinta) 90 mg PO BID [facility] Last Admin: 05/02/16 17:25 Dose: 90 mg Zolpidem Tartrate (Ambien) 10 mg PO HS PRN PRN Reason: Insomnia Last Admin: 05/01/16 22:34 Dose: 10 mg - Labs Labs: 04/27/16 05:30 04/27/16 05:30 - Constitutional Appears: No Acute Distress - Head Exam Head Exam: NORMAL INSPECTION - Eye Exam Eye Exam: PERRL - ENT Exam ENT Exam: Normal Oropharynx - Neck Exam Neck Exam: Normal Inspection - Respiratory Exam Respiratory Exam: Decreased Breath Sounds (at bases) - Cardiovascular Exam Cardiovascular Exam: REGULAR RHYTHM - GI/Abdominal Exam GI & Abdominal Exam: Soft, Normal Bowel Sounds - Extremities Exam Extremities Exam: Normal Inspection - Back Exam Additional comments: Dry crusted lesion R buttock - Neurological Exam Neurological Exam: Alert, CN II-XII Intact, Oriented x3. absent: Motor Sensory Deficit - Psychiatric Exam Psychiatric exam: Normal Mood - Skin Skin Exam: Warm Assessment and Plan - Assessment and Plan (Free Text) Assessment: COPD Exacerbation improved Herpes Zoster Improved CAD Chronic HTN Chronic R/A chronic O/A Chronic. Plan: Continue Solumedrol., Duoeb, Zovirax and rest of Tx.
[2016-05-02] MEDS: guaiFENesin 600 mg ER Tab PO SCH (20:41)
[2016-05-02] MEDS ORDERED: guaiFENesin-Codeine 100-10mg/5ml Syrup (5 ml) UD ONE (21:13)
[2016-05-03] MEDS: Acyclovir 5% OINT 5 APPLIC/5 GM EXT SCH ×5 (01:32→17:18)
[2016-05-03] MEDS: Albuterol-Ipratrop 3 mg / 0.5 (3 ml) UD INH SCH ×4 (04:58→15:25)
[2016-05-03] MEDS: Piperacillin/Tazobact 3.375 GM in Sodium Chloride 0.9% 100 ML IVPB SCH ×2 (05:16→13:03)
[2016-05-03] MEDS: guaiFENesin 600 mg ER Tab PO SCH (08:55)
[2016-05-03] MEDS: Metoprolol Succinate 50 mg XL Tab PO SCH (08:55)
[2016-05-03] MEDS: Pantoprazole 40 mg EC Tab PO SCH (08:55)
[2016-05-03] MEDS: methylPREDNISolone 40 MG in Sodium Chloride 0.9% 50 ML IV SCH (08:56)
[2016-05-03] MEDS: Budesonide 0.25 mg/2 ml Inhal Susp UD INH SCH (09:19)
[2016-05-03] MEDS: Acetylcysteine 10% 4 ML IH SCH ×2 (09:19→13:24)
[2016-05-03] MEDS: Promethazine/Cod 6.25mg-10mg/5ml Syr UD PO PRN (10:27)
[2016-05-03 16:46] VITALS: BP 109/76; PULSE 68; TEMP 97.7; O2SAT 97
--- NOTE | 2016-05-03 17:36 | CP.PCM.PN ---
Subjective - Date & Time of Evaluation Date of Evaluation: 05/03/16 - Subjective Subjective: F/U COPD Exacerbation. Pt with no chest congestion, no SOB, occasional dry cough. Objective - Vital Signs/Intake and Output Vital Signs (last 24 hours): Temp Pulse Resp BP Pulse Ox 97.7 F 68 20 109/76 97 05/03/16 16:45 05/03/16 16:45 05/03/16 16:45 05/03/16 16:45 05/03/16 16:45 - Medications Medications: Current Medications Acetylcysteine (Mucomyst 10% 4ml) 3 ml IH RTID [facility] Last Admin: 05/03/16 13:24 Dose: 3 ml Acyclovir (Zovirax) 800 mg PO 5XD [facility] Last Admin: 05/03/16 17:17 Dose: 800 mg Acyclovir (Zovirax 5% Oint) 1 applic EXT Q4 [facility] Last Admin: 05/03/16 17:18 Dose: 1 applic Albuterol/Ipratropium (Duoneb 3 Mg/0.5 Mg (3 Ml) Ud) 3 ml INH RQ4 [facility] Last Admin: 05/03/16 15:25 Dose: 3 ml Aspirin (Ecotrin) 81 mg PO DAILY [facility] Last Admin: 05/03/16 08:55 Dose: 81 mg Atorvastatin Calcium (Lipitor) 40 mg PO HS [facility] Last Admin: 05/02/16 21:30 Dose: 40 mg Budesonide (Pulmicort Respules) 0.25 mg INH RBID [facility] Last Admin: 05/03/16 09:19 Dose: 0.25 mg Celecoxib (Celebrex) 200 mg PO DAILY [facility] Last Admin: 05/03/16 08:55 Dose: 200 mg Folic Acid (Folic Acid) 1 mg PO DAILY [facility] Last Admin: 05/03/16 08:55 Dose: 1 mg Furosemide (Lasix) 40 mg PO DAILY [facility] Last Admin: 05/03/16 08:57 Dose: 40 mg Guaifenesin (Mucinex La) 600 mg PO Q12 [facility] Last Admin: 05/03/16 08:55 Dose: 600 mg Piperacillin Sod/Tazobactam (Sod 3.375 gm/ Sodium Chloride) 100 mls @ 100 mls/ hr IVPB 0000,0600,1200,1800 [facility] Last Admin: 05/03/16 13:03 Dose: 100 mls/hr Methylprednisolone 40 mg/ (Sodium Chloride) 50 mls @ 100 mls/hr IV Q12 [facility] Last Admin: 05/03/16 08:56 Dose: 100 mls/hr Metoprolol Succinate (Toprol Xl) 50 mg PO DAILY [facility] Last Admin: 05/03/16 08:55 Dose: 50 mg Pantoprazole Sodium (Protonix Ec Tab) 40 mg PO DAILY [facility] Last Admin: 05/03/16 08:55 Dose: 40 mg Promethazine HCl/Codeine (Phenergan/Codeine Oral Syrup) 10 ml PO Q6 PRN PRN Reason: Cough Last Admin: 05/03/16 10:27 Dose: 10 ml Tamsulosin HCl (Flomax) 0.4 mg PO HS [facility] Last Admin: 05/02/16 21:30 Dose: 0.4 mg Ticagrelor (Brilinta) 90 mg PO BID [facility] Last Admin: 05/03/16 17:18 Dose: 90 mg Zolpidem Tartrate (Ambien) 10 mg PO HS PRN PRN Reason: Insomnia Last Admin: 05/02/16 22:27 Dose: 10 mg - Labs Labs: 04/27/16 05:30 04/27/16 05:30 - Constitutional Appears: No Acute Distress - Head Exam Head Exam: NORMAL INSPECTION - Eye Exam Eye Exam: PERRL - ENT Exam ENT Exam: Normal Oropharynx - Neck Exam Neck Exam: Normal Inspection - Respiratory Exam Respiratory Exam: Decreased Breath Sounds (at bases) - Cardiovascular Exam Cardiovascular Exam: REGULAR RHYTHM - GI/Abdominal Exam GI & Abdominal Exam: Soft, Normal Bowel Sounds - Extremities Exam Additional comments: Dry crusted lesion R buttock - Back Exam Back Exam: NORMAL INSPECTION - Neurological Exam Neurological Exam: Alert, CN II-XII Intact, Oriented x3. absent: Motor Sensory Deficit - Psychiatric Exam Psychiatric exam: Normal Mood - Skin Skin Exam: Warm Assessment and Plan - Assessment and Plan (Free Text) Assessment: COPD Exacerbation Resolved Herpes Zoster R buttock Improved CAD Chronic HTN Chronic R/A Chronic O/A Chronic. Plan: Pt improved and stable to be discharged, see instruction medication sheet, f/u in my office in 5 days.
== END 2016-05-03 18:25 | disposition home or self-care (01) | DRG 191 ==
LOC: H.TCU 15:53
PROVIDERS: ADMIT Internal Medicine Pulmonary Disease; ATTEND Internal Medicine Pulmonary Disease
PROC: F07Z9FZ Gait Training/Functional Ambulation Treatment using Assistive, Adaptive, Supportive or Protective Equipment (ICD-10-PCS; principal; 2016-04-24)
PROC: 3E0F73Z Introduction of Anti-inflammatory into Respiratory Tract, Via Natural or Artificial Opening (ICD-10-PCS; 2016-04-24)
PROC: F07M6FZ Therapeutic Exercise Treatment of Musculoskeletal System - Whole Body using Assistive, Adaptive, Supportive or Protective Equipment (ICD-10-PCS; 2016-04-25)
DX: J44.1 Chronic obstructive pulmonary disease with (acute) exacerbation (principal); B02.8 Zoster with other complications; M06.9 Rheumatoid arthritis, unspecified; I10 Essential (primary) hypertension; I25.10 Atherosclerotic heart disease of native coronary artery without angina pectoris; M19.90 Unspecified osteoarthritis, unspecified site; Z95.5 Presence of coronary angioplasty implant and graft; Z87.891 Personal history of nicotine dependence

== ENCOUNTER 2016-05-20 18:07 | Inpatient (IN) | payer MEDICARE, MEDICAID ==
[2016-05-20 18:07] VITALS: BMI 31.8
[2016-05-20] MEDS ORDERED: Albuterol-Ipratrop 3 mg / 0.5 (3 ml) UD INH STA ×3 (18:21→20:50)
--- NOTE | 2016-05-20 18:28 | ED PDOC ---
HPI: SOB/CHF/COPD Time Seen by Provider: 05/20/16 18:17 Chief Complaint (Nursing): Shortness Of Breath Chief Complaint (Provider): Shortness of Breath History Per: Patient, EMS History/Exam Limitations: no limitations Onset/Duration Of Symptoms: Days (x2-3) Current Symptoms Are (Timing): Still Present Quality: Tightness Severity: Moderate Associated Symptoms: Other (cough, wheezing) Recently: Treated By A Physician Additional Complaint(s): Damien Lopes is a 70 year old male, with a past medical history inclusive of CAD (s/p coronary stent placement x1), COPD and sleep apnea, who presents to the ED on 05/20/16, via EMS, for the evaluation of moderately exacerbated shortness of breath that he has experienced x2-3 days. Associated feelings of chest tightness also reported in addition to both audible wheezing and a nonproductive cough. Patient was referred to the ED by his PMD after an in office evaluation earlier today for further evaluation/treatment and, per EMS, was reportedly tripoding with accessory muscle use upon arrival; somewhat improved after the administration of supplemental O2. Of note, patient was recently hospitalized in April 2016 for a prolonged TCU stay. PMD: Kareem Son Past Medical History Reviewed: Historical Data, Nursing Documentation, Vital Signs Vital Signs: Last Vital Signs Temp 98.5 F 05/22/16 19:58 Pulse 65 05/22/16 19:58 Resp 18 05/22/16 19:58 BP 112/72 05/22/16 19:58 Pulse Ox 99 05/22/16 19:58 - Medical History PMH: Anemia, Arthritis, CAD, COPD, Emphysema, HTN, Rheumatoid Arthritis, Sleep Apnea Denies: HIV, Chronic Kidney Disease Other PMH: cataracts (left eye) - Surgical History Surgical History: Coronary Stent (x 1) Other surgeries: splenectomy, colonoscopy - Family History Family History: States: [place] - Social History Ex-Smoker (has not smoked in the last 12 months): Yes Alcohol: None Drugs: Denies - Home Medications Home Medications: Ambulatory Orders Medication Instructions Recorded Folic Acid 1 mg PO DAILY 01/09/16 Metoprolol Succinate [Toprol XL] 50 mg PO DAILY 01/09/16 Tamsulosin [Flomax] 0.4 mg PO HS 01/09/16 Zolpidem [Ambien] 10 mg PO HS 01/09/16 Aspirin [Ecotrin] 81 mg PO DAILY 02/19/16 Atorvastatin [Lipitor] 40 mg PO HS 04/21/16 Cholecalciferol (Vitamin D3) 5,000 unit PO DAILY 04/21/16 [Vitamin D3] Furosemide [Lasix] 40 mg PO DAILY 04/21/16 Albuterol/Ipratropium [Duoneb 3 3 ml INH RQ4 neb 04/24/16 mg/0.5 mg (3 ml) UD] Promethazine/Codeine 10 ml PO Q6 PRN #0 udc 04/24/16 [Phenergan/Codeine Oral Syrup] guaiFENesin [Mucinex LA] 600 mg PO Q12 30 Days 05/03/16 Albuterol/Ipratropium [Duoneb 3 3 ml INH RQ4 neb 05/22/16 mg/0.5 mg (3 ml) UD] Enoxaparin [Lovenox] 40 mg SC DAILY syr 05/22/16 Ibuprofen [Motrin Tab] 400 mg PO Q6 PRN #0 tab 05/22/16 levoFLOXacin 500 mg in D5W 500 mg IVPB DAILY #7 bag 05/22/16 [Levaquin 500MG] methylPREDNISolone [Solu-MEDROL] 40 mg IV Q6 #8 ml 05/22/16 - Allergies Allergies/Adverse Reactions: Allergies Allergy/AdvReac Type Severity Reaction Status Date / Time No Known Allergies Allergy Verified 04/24/16 15:48 Review of Systems ROS Statement: Except As Marked, All Systems Reviewed And Found Negative Respiratory: Positive for: Cough, Shortness of Breath, Wheezing, Other (chest tightness). Negative for: Sputum Physical Exam - Reviewed Nursing Documentation Reviewed: Yes Vital Signs Reviewed: Yes - Physical Exam Appears: Positive for: Non-toxic, In Acute Distress (mild respiratory) Head Exam: Positive for: ATRAUMATIC, NORMOCEPHALIC Skin: Positive for: Normal Color, Warm, Dry Eye Exam: Positive for: Normal appearance, PERRL ENT: Positive for: Normal ENT Inspection. Negative for: Pharyngeal Erythema, Tonsillar Exudate, Tonsillar Swelling Cardiovascular/Chest: Positive for: Regular Rate, Rhythm. Negative for: Edema, Murmur Respiratory: Positive for: Accessory Muscle Use (minimal), Wheezing (b/l), Respiratory Distress (mild, speaking in partial sentences) Gastrointestinal/Abdominal: Positive for: Normal Exam, Soft. Negative for: Tenderness Back: Positive for: Normal Inspection Extremity: Positive for: Normal ROM. Negative for: Swelling Neurologic/Psych: Positive for: Alert, Oriented - Laboratory Results Result Diagrams: 05/22/16 06:35 05/22/16 06:35 - ECG ECG: Positive for: Interpreted By Me, Viewed By Me ECG Rhythm: Positive for: Sinus Rhythm, Nonspecific Changes Rate: 82 O2 Sat by Pulse Oximetry: 97 (RA) Pulse Ox Interpretation: Normal Medical Decision Making Medical Decision Makin:17 Initial Impression: COPD exacerbation, will r/o infectious etiology Initial Plan: * EKG * CXR * Labs * Troponin I * BNP * Solu-Medrol 125mg IVP * Duonebs 3ml INH * Reevaluation EKG shows NSR at 85bpm with nonspecific changes. 19:00 Patient will be endorsed over to Dani Soria MD, pending remainder of ED workup, reevaluation and final disposition. Scribe Attestation: Documented by Kusum Doherty, acting as a scribe for Álvaro Bender III, DO. Provider Scribe Attestation: All medical record entries made by the Scribe were at my direction and personally dictated by me. I have reviewed the chart and agree that the record accurately reflects my personal performance of the history, physical exam, medical decision making, and the department course for this patient. I have also personally directed, reviewed, and agree with the discharge instructions and disposition. Disposition - Clinical Impression Clinical Impression: Chest pain - Patient ED Disposition Is Patient to be Admitted: Transfer of Care Counseled Patient/Family Regarding: Studies Performed, Diagnosis - Disposition Disposition: Transfer of Care Disposition Time: 19:00 Condition: FAIR
[2016-05-20] MEDS ORDERED: Albuterol-Ipratrop 3 mg / 0.5 (3 ml) UD ONE (18:31)
[2016-05-20 19:21] LABS: BASO # 0.1 K/uL (0.0-0.2); BASO % 0.5 % (0.0-2.0); EOS % 0.3 % (0.0-4.0); HEMATOCRIT 43.3 % (35.0-51.0); LYMPH # 1.5 K/uL (1.0-4.3); LYMPH % 13.2 % (20.0-40.0); MEAN CELL VOLUME 91.6 fl (80.0-94.0); MEAN CORPUSCULAR HEMOGLOBIN 30.2 pg (27.0-31.0); MEAN CORPUSCULAR HGB CONC 32.9 g/dL (33.0-37.0); MEAN PLATELET VOLUME 9.1 fl (7.2-11.7); MONO # 1.1 K/uL (0.0-0.8); MONO % 9.9 % (0.0-10.0); NEUT # 8.7 K/uL (1.8-7.0); NEUT % 76.1 % (50.0-75.0); RED CELL DISTRIBUTION WIDTH 17.7 % (11.5-14.5); WHITE BLOOD COUNT 11.4 K/uL (4.8-10.8)
[2016-05-20 19:36] LABS: ALB/GLOB RATIO 1.3 (1.0-2.1); ALKALINE PHOSPHATASE 79 U/L (38-126); ALT/SGPT 55 U/L (21-72); AST/SGOT 35 U/L (17-59); BILIRUBIN,TOTAL 0.6 mg/dl (0.2-1.3); BLOOD UREA NITROGEN 17 mg/dl (9-20); CALCIUM 9.2 mg/dL (8.4-10.2); CARBON DIOXIDE 26 mmol/L (22-30); CHLORIDE 101 mmol/L (98-107); GFR AFRICAN-AMERICAN > 60; GLUCOSE,RANDOM 88 mg/dL (75-110); POTASSIUM 4.5 MMOL/L (3.6-5.0); SODIUM 140 mmol/l (132-148); TOTAL PROTEIN 6.9 G/DL (6.3-8.2)
--- NOTE | 2016-05-20 19:38 | ED PDOC ---
- Laboratory Results Result Diagrams: 05/20/16 18:50 05/20/16 18:50 - ECG O2 Sat by Pulse Oximetry: 97 (RA) Pulse Ox Interpretation: Normal - Radiology X-Ray: Interpreted by Me, Viewed By Me X-Ray Interpretation: Infiltrates (questionable early infiltrate in left lung base) Medical Decision Making Medical Decision Makin:00 Patient endorsed over to me by Álvaro Bender III, DO, pending remainder of ED workup, reevaluation and final disposition. 20:57 Labs reviewed with no clinically significant abnormalities. CXR shows questionable early infiltrate in left lung base, ordered both blood culture as well as administration of Levaquin IVPB. Discussed case with Dr. Son (patient's PMD), patient will be hospitalized overnight under his service for further treatment of COPD exacerbation. Plan has been discussed with patient, who is in agreement. Condition fair. Scribe Attestation: Documented by Kusum Doherty, acting as a scribe for Dani Soria MD. Provider Scribe Attestation: All medical record entries made by the Scribe were at my direction and personally dictated by me. I have reviewed the chart and agree that the record accurately reflects my personal performance of the history, physical exam, medical decision making, and the department course for this patient. I have also personally directed, reviewed, and agree with the discharge instructions and disposition. Disposition - Clinical Impression Clinical Impression: Chest pain - POA Present On Arrival: None - Disposition Disposition: Hospitalized as Observation Patient Disposition Time: 20:51 Condition: FAIR
[2016-05-20] MEDS ORDERED: Magnesium Sulfate 2 GM in Sodium Chloride 0.9% 100 ML IV STA (20:50)
[2016-05-20] MEDS ORDERED: Promethazine/Cod 6.25mg-10mg/5ml Syr UD PO PRN (23:34)
[2016-05-20] MEDS ORDERED: Patient's Own Med (Zolpidem [Ambien] 10 MG) PO SCH (23:45)
[2016-05-21] MEDS: Albuterol-Ipratrop 3 mg / 0.5 (3 ml) UD INH SCH ×7 (00:43→23:57)
[2016-05-21 08:18] LABS: HEMATOCRIT 41.3 % (35.0-51.0); MEAN CELL VOLUME 90.7 fl (80.0-94.0); MEAN CORPUSCULAR HEMOGLOBIN 30.1 pg (27.0-31.0); MEAN CORPUSCULAR HGB CONC 33.1 g/dL (33.0-37.0); RED CELL DISTRIBUTION WIDTH 18.3 % (11.5-14.5); WHITE BLOOD COUNT 11.1 K/uL (4.8-10.8)
[2016-05-21 08:41] LABS: ALB/GLOB RATIO 1.3 (1.0-2.1); ALKALINE PHOSPHATASE 70 U/L (38-126); ALT/SGPT 48 U/L (21-72); AST/SGOT 27 U/L (17-59); BILIRUBIN,TOTAL 0.4 mg/dl (0.2-1.3); BLOOD UREA NITROGEN 20 mg/dl (9-20); CALCIUM 8.9 mg/dL (8.4-10.2); CARBON DIOXIDE 28 mmol/L (22-30); CHLORIDE 98 mmol/L (98-107); CHOLESTEROL 137 mg/dL (0-199); GFR AFRICAN-AMERICAN > 60; GLUCOSE,RANDOM 143 mg/dL (75-110); POTASSIUM 4.4 MMOL/L (3.6-5.0); SODIUM 140 mmol/l (132-148); TOTAL PROTEIN 6.5 G/DL (6.3-8.2)
[2016-05-21] MEDS ORDERED: Patient's Own Med (Cholecalciferol (Vitamin D3) [Vitamin D3] 5,000 unit) PO SCH (09:00)
[2016-05-21] MEDS: methylPREDNISolone 40 MG in Sodium Chloride 0.9% 50 ML IVPB SCH ×5 (10:15→22:58)
[2016-05-21] MEDS: Enoxaparin 40 mg Syringe SC SCH (10:15)
[2016-05-21] MEDS: guaiFENesin 600 mg ER Tab PO SCH ×2 (10:15→22:57)
[2016-05-21] MEDS: Metoprolol Succinate 50 mg XL Tab PO SCH (10:16)
--- NOTE | 2016-05-21 10:52 | RAD ---
HISTORY: Shortness of breath. Technique: Single view portable semi erect @ 18:25. COMPARISON: 04/27/2016. FINDINGS: LUNGS: No active pulmonary disease. PLEURA: No significant pleural effusion identified, no pneumothorax apparent. CARDIOVASCULAR: No radiographic findings to suggest acute or significant cardiovascular disease. OSSEOUS STRUCTURES: No significant abnormalities. VISUALIZED UPPER ABDOMEN: Normal. OTHER FINDINGS: None. IMPRESSION: No active disease. No significant interval change compared to the prior examination(s).
[2016-05-21 13:46] LABS: RBC URINE 1 /hpf (0-3); URINE BILIRUBIN NEGATIVE (NEGATIVE); URINE BLOOD NEGATIVE (NEGATIVE); URINE COLOR YELLOW (YELLOW); URINE GLUCOSE (UA) NEG (Normal); URINE KETONE NEGATIVE (NEGATIVE); URINE LEUKOCYTE ESTERASE NEG Leu/uL (Negative); URINE PROTEIN 100 mg/dL (NEGATIVE); URINE UROBILINOGEN 0.2-1.0 mg/dL (0.2-1.0); WBC URINE < 1 /hpf (0-5)
--- NOTE | 2016-05-21 14:20 | CP.PCM.HP ---
History of Present Illness - History of Present Illness History of Present Illness: CC: SOB. 70 y/o M admitted to [facility] for increased SOB, onset 2-3 days [employer]OCK [employer]IP[employer] with partial relief using nebulizer Tx, Symbicort, Pro Air. Pt referred to [facility] yesterday 05/20/16 after been in my office c/o of increased SOB, associated to wheezing, intractable cough, non productive, non bloody. Worsening symptom: Chest tightness with coughing. Aggravated factor: increased SOB when walking, exercise or cold weather. Pt denied: Fever, chills, hemoptysis, dizziness, CP, palpitations, abdominal pain, n/v/d, sick contact, recent travel. Also denied Hx of DVT, PE, Bronchial Asthma, Allergic Rhinitis, Urticaria, Industrial Exposure. PMHx: COPD, Emphysema Dx 6 yrs ago, Hx of smoker 2-3 PPD x 40 yrs (quit 5 yrs ago), ANDRZEJ, HTN, Coronary stent x 1 after he underwent Cardiac Cath in by [employer] Worker Dr Krishna, Hx of Anemia, R/A Tx with Metrotexate, Embrel x one year, O/A. CXR shows: No active pulmonary disease. EKG: Normal sinus rhythm. Present on Admission - Present on Admission Any Indicators Present on Admission: No Review of Systems - Constitutional Constitutional: Sleep Apnea - EENT Eyes: Blurred Vision (Cataract L eye), Requires Corrective Lenses Ears: Other (negative) Nose/Mouth/Throat: Other (negative.) - Cardiovascular Cardiovascular: Other (negative) - Respiratory Respiratory: Cough, Dyspnea, Dyspnea on Exertion - Gastrointestinal Gastrointestinal: Other (negative) - Genitourinary Genitourinary: Other (negative) - Musculoskeletal Musculoskeletal: Arthralgias - Integumentary Integumentary: Other (negative) - Neurological Neurological: Other (negative) - Psychiatric Psychiatric: Abnormal Sleep Pattern - Endocrine Endocrine: Other (negative) - Hematologic/Lymphatic Hematologic: Other (negative) Past Patient History - Past Medical History & Family History Past Medical History?: Yes Pertinent Family History: Unknown - Past Social History Smoking Status: Former Smoker Alcohol: None Drugs: Denies Home Situation {Lives}: Alone - CARDIAC Hx Cardiac Disorders: Yes Hx Hypercholesterolemia: Yes Hx Hypertension: Yes - PULMONARY Hx Respiratory Disorders: Yes Hx Chronic Obstructive Pulmonary Disease (COPD): Yes Hx Emphysema: Yes Hx Sleep Apnea: Yes - NEUROLOGICAL Hx Neurological Disorder: No - HEENT Hx HEENT Problems: No Hx Cataracts: (denies) - RENAL Hx Chronic Kidney Disease: No - ENDOCRINE/METABOLIC Hx Endocrine Disorders: No - HEMATOLOGICAL/ONCOLOGICAL Hx Blood Disorders: Yes Hx AIDS: No Hx Anemia: Yes Hx Hepatitis C: No Hx Human Immunodeficiency Virus (HIV): No - INTEGUMENTARY Hx Dermatological Problems: No - MUSCULOSKELETAL/RHEUMATOLOGICAL Hx Musculoskeletal Disorders: Yes Hx Arthritis: Yes Hx Falls: No - GASTROINTESTINAL Hx Gastrointestinal Disorders: No - GENITOURINARY/GYNECOLOGICAL Hx Genitourinary Disorders: No - PSYCHIATRIC Hx Psychophysiologic Disorder: No Hx Substance Use: No - SURGICAL HISTORY Hx Surgeries: Yes Hx Coronary Stent: Yes (x 1 done 2 mos ago) Hx Splenectomy: Yes Other/Comment: TURP 25 yrs ago. - ANESTHESIA Hx Anesthesia: Yes Hx Anesthesia Reactions: No Hx Malignant Hyperthermia: No Meds Allergies/Adverse Reactions: Allergies Allergy/AdvReac Type Severity Reaction Status Date / Time No Known Allergies Allergy Verified 04/24/16 15:48 Physical Exam - Constitutional Appears: No Acute Distress - Head Exam Head Exam: NORMAL INSPECTION - Eye Exam Eye Exam: PERRL - ENT Exam ENT Exam: Normal Oropharynx - Neck Exam Neck exam: Positive for: Normal Inspection - Respiratory Exam Respiratory Exam: Decreased Breath Sounds (at bases), Wheezes (b/l) - Cardiovascular Exam Cardiovascular Exam: REGULAR RHYTHM - GI/Abdominal Exam GI & Abdominal Exam: Normal Bowel Sounds, Soft - Extremities Exam Extremities exam: Positive for: normal inspection - Back Exam Back exam: NORMAL INSPECTION - Neurological Exam Neurological exam: Alert, Oriented x3 Additional comments: No motor sensory deficit - Psychiatric Exam Psychiatric exam: Normal Mood - Skin Skin Exam: Warm Results - Vital Signs Recent Vital Signs: Last Vital Signs Temp 97.7 F 05/21/16 08:59 Pulse 84 05/21/16 10:16 Resp 20 05/21/16 08:59 BP 108/70 05/21/16 10:16 Pulse Ox 98 05/21/16 08:59 reviewed William - Labs Result Diagrams: 05/22/16 06:35 05/22/16 06:35 Labs: Laboratory Results - last 24 hr 05/21/16 05/21/16 07:20 13:25 WBC 11.1 H RBC 4.55 Hgb 13.7 Hct 41.3 MCV 90.7 MCH 30.1 MCHC 33.1 RDW 18.3 H Plt Count 243 Sodium 140 Potassium 4.4 Chloride 98 Carbon Dioxide 28 Anion Gap 18 BUN 20 Creatinine 0.8 Est GFR ( Amer) > 60 Est GFR (Non-Af Amer) > 60 Random Glucose 143 H Calcium 8.9 Total Bilirubin 0.4 AST 27 ALT 48 Alkaline Phosphatase 70 Total Protein 6.5 Albumin 3.7 Globulin 2.8 Albumin/Globulin Ratio 1.3 Triglycerides 57 Cholesterol 137 LDL Cholesterol Direct 51 HDL Cholesterol 73 H Thyroxine (T4) 7.70 TSH 3rd Generation 0.20 L Urine Color Yellow Urine Clarity Clear Urine pH 6.0 Ur Specific [place] 1.026 Urine Protein 100 Urine Glucose (UA) Neg Urine Ketones Negative Urine Blood Negative Urine Nitrate Negative Urine Bilirubin Negative Urine Urobilinogen 0.2-1.0 Ur Leukocyte Esterase Neg Urine RBC (Auto) 1 Urine Microscopic WBC < 1 reviewed J.P. - EKG Data EKG comments: reviewed J.P. - Imaging and Cardiology Chest x-ray Status: Report reviewed by me (J.P.) Assessment & Plan (1) COPD exacerbation Status: Acute Priority: High (2) CAD (coronary artery disease) Status: Chronic Priority: Medium (3) HTN (hypertension) Status: Chronic Priority: Low (4) Emphysema lung Status: Chronic (5) RA (rheumatoid arthritis) Status: Chronic - Assessment and Plan (Free Text) Plan: Continue Levaquin, Solumedrol, Duoneb, Promethazine with Co, Lipitor, Lovenox, Toprol, and rest of Tx. F/U Blood C-S, U C-S, PT Eval. - Date & Time Date: 05/21/16 Time: 12:50
--- NOTE | 2016-05-21 18:31 | CARD ---
APPROVED REPORT EKG Measurement Heart [id number] <Conclusion> Normal sinus rhythm Possible Left atrial enlargement Borderline ECG
[2016-05-22] MEDS: methylPREDNISolone 40 MG in Sodium Chloride 0.9% 50 ML IVPB SCH ×3 (05:00→15:36)
[2016-05-22] MEDS: Albuterol-Ipratrop 3 mg / 0.5 (3 ml) UD INH SCH ×5 (05:08→19:58)
[2016-05-22 07:39] LABS: HEMATOCRIT 41.2 % (35.0-51.0); MEAN CELL VOLUME 91.2 fl (80.0-94.0); MEAN CORPUSCULAR HGB CONC 32.9 g/dL (33.0-37.0); RED CELL DISTRIBUTION WIDTH 17.4 % (11.5-14.5)
[2016-05-22 07:51] LABS: BLOOD UREA NITROGEN 23 mg/dl (9-20); CALCIUM 9.3 mg/dL (8.4-10.2); CARBON DIOXIDE 25 mmol/L (22-30); CHLORIDE 101 mmol/L (98-107); GFR AFRICAN-AMERICAN > 60; GLUCOSE,RANDOM 139 mg/dL (75-110); POTASSIUM 4.4 MMOL/L (3.6-5.0); SODIUM 142 mmol/l (132-148)
[2016-05-22 08:32] LABS: WHITE BLOOD COUNT 20.6 K/uL (4.8-10.8)
[2016-05-22] MEDS: guaiFENesin 600 mg ER Tab PO SCH ×2 (09:21→22:25)
[2016-05-22] MEDS: Enoxaparin 40 mg Syringe SC SCH (09:21)
[2016-05-22] MEDS: Metoprolol Succinate 50 mg XL Tab PO SCH (09:22)
--- NOTE | 2016-05-22 14:43 | CP.PCM.PN ---
Subjective - Date & Time of Evaluation Date of Evaluation: 05/22/16 Time of Evaluation: 13:00 - Subjective Subjective: F/U Pt breathing better, cough improved, chest less congested. Objective - Vital Signs/Intake and Output Vital Signs (last 24 hours): Temp Pulse Resp BP Pulse Ox 98.4 F 59 L 20 119/72 94 L 05/22/16 07:39 05/22/16 07:39 05/22/16 07:39 05/22/16 09:20 05/22/16 07:39 - Medications Medications: Current Medications Albuterol/Ipratropium (Duoneb 3 Mg/0.5 Mg (3 Ml) Ud) 3 ml INH RQ4 [facility] Last Admin: 05/22/16 11:24 Dose: 3 ml Aspirin (Ecotrin) 81 mg PO DAILY [facility] Last Admin: 05/22/16 09:19 Dose: 81 mg Atorvastatin Calcium (Lipitor) 40 mg PO HS [facility] Last Admin: 05/21/16 22:57 Dose: 40 mg Cholecalciferol (Vitamin D) 5,000 iu PO DAILY [facility] Last Admin: 05/22/16 09:22 Dose: 5,000 iu Enoxaparin Sodium (Lovenox) 40 mg SC DAILY [facility] PRN Reason: Protocol Last Admin: 05/22/16 09:21 Dose: 40 mg Folic Acid (Folic Acid) 1 mg PO DAILY [facility] Last Admin: 05/22/16 09:20 Dose: 1 mg Furosemide (Lasix) 40 mg PO DAILY [facility] Last Admin: 05/22/16 09:20 Dose: 40 mg Guaifenesin (Mucinex La) 600 mg PO Q12 [facility] Last Admin: 05/22/16 09:21 Dose: 600 mg Levofloxacin/Dextrose (Levaquin 750mg) 150 mls @ 100 mls/hr IVPB DAILY [facility] Last Admin: 05/22/16 12:26 Dose: 100 mls/hr Methylprednisolone 40 mg/ (Sodium Chloride) 50 mls @ 100 mls/hr IVPB Q6 [facility] Last Admin: 05/22/16 11:35 Dose: 100 mls/hr Ibuprofen (Motrin Tab) 400 mg PO Q6 PRN PRN Reason: Pain, Mild (1-3) Last Admin: 05/21/16 10:31 Dose: 400 mg Metoprolol Succinate (Toprol Xl) 50 mg PO DAILY [facility] Last Admin: 05/22/16 09:22 Dose: 50 mg Promethazine HCl/Codeine (Phenergan/Codeine Oral Syrup) 10 ml PO Q6 PRN PRN Reason: Cough Last Admin: 05/22/16 11:32 Dose: 10 ml Tamsulosin HCl (Flomax) 0.4 mg PO HS [facility] Last Admin: 05/21/16 22:29 Dose: 0.4 mg Zolpidem Tartrate (Ambien) 10 mg PO HS [facility] Last Admin: 05/21/16 22:57 Dose: 10 mg - Labs Labs: 05/22/16 06:35 05/22/16 06:35 - Constitutional Appears: No Acute Distress - Head Exam Head Exam: NORMAL INSPECTION - Eye Exam Eye Exam: PERRL - ENT Exam ENT Exam: Normal Exam - Neck Exam Neck Exam: Normal Inspection - Respiratory Exam Respiratory Exam: Decreased Breath Sounds (at bases), Rhonchi (scattered) - Cardiovascular Exam Cardiovascular Exam: REGULAR RHYTHM - GI/Abdominal Exam GI & Abdominal Exam: Soft, Normal Bowel Sounds - Extremities Exam Extremities Exam: Normal Inspection - Back Exam Back Exam: NORMAL INSPECTION - Neurological Exam Neurological Exam: Alert, Oriented x3 Additional comments: No motor /sensory deficit. - Psychiatric Exam Psychiatric exam: Normal Mood - Skin Skin Exam: Warm Assessment and Plan (1) COPD exacerbation Status: Acute (2) CAD (coronary artery disease) Status: Chronic (3) HTN (hypertension) Status: Chronic (4) Emphysema lung Status: Chronic (5) RA (rheumatoid arthritis) Status: Chronic - Assessment and Plan (Free Text) Plan: Continue Levaquin IV, Solumedrol, Duoneb, transfer to TCU.
[2016-05-22 16:23] VITALS: RESP 18
[2016-05-22 19:58] VITALS: BP 112/72; TEMP 98.5
[2016-05-23 16:23] VITALS: PULSE 82; O2SAT 97
== END 2016-05-22 20:45 | DRG 192 ==
LOC: H.ER 18:07 → H.ERHOLD 20:51 → H.MEDSURG1 22:41 → OBSVTOIN 05-21 13:55 → H.MEDSURG1 05-22 05:21
PROVIDERS: ADMIT Internal Medicine Pulmonary Disease; ATTEND Internal Medicine Pulmonary Disease
DX: J44.1 Chronic obstructive pulmonary disease with (acute) exacerbation (principal); M06.9 Rheumatoid arthritis, unspecified; I10 Essential (primary) hypertension; G47.33 Obstructive sleep apnea (adult) (pediatric); Z87.891 Personal history of nicotine dependence; I25.10 Atherosclerotic heart disease of native coronary artery without angina pectoris; Z95.5 Presence of coronary angioplasty implant and graft; M19.90 Unspecified osteoarthritis, unspecified site

== ENCOUNTER 2016-05-22 14:51 | Inpatient (IN) | payer OTHER, MEDICAID ==
[2016-05-22 20:52] VITALS: BMI 31.6
[2016-05-22] MEDS ORDERED: Promethazine/Cod 6.25mg-10mg/5ml Syr UD PO PRN (21:00)
[2016-05-22] MEDS ORDERED: Alum-Mag Hydrox-Simethicone Susp (30 mL) PO PRN (21:11)
[2016-05-22 22:04] VITALS: RESP 20
[2016-05-22] MEDS: guaiFENesin 600 mg ER Tab PO SCH (22:28)
[2016-05-22] MEDS: Albuterol-Ipratrop 3 mg / 0.5 (3 ml) UD INH SCH (23:37)
[2016-05-23] MEDS: methylPREDNISolone 40 MG in Sodium Chloride 0.9% 50 ML IV SCH ×4 (00:10→17:00)
[2016-05-23] MEDS: Albuterol-Ipratrop 3 mg / 0.5 (3 ml) UD INH SCH ×5 (05:10→19:22)
[2016-05-23] MEDS: Enoxaparin 40 mg Syringe SC SCH (08:18)
[2016-05-23] MEDS: guaiFENesin 600 mg ER Tab PO SCH ×2 (08:18→21:08)
[2016-05-23] MEDS: Metoprolol Succinate 50 mg XL Tab PO SCH (08:18)
[2016-05-23] MEDS ORDERED: Patient's Own Med (Cholecalciferol (Vitamin D3) [Vitamin D3] 5,000 unit) PO SCH (09:00)
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
[2016-05-23] MEDS: Acyclovir 5% OINT 15 APPLIC/15 GM TOP SCH ×3 (17:30→21:08)
[2016-05-24] MEDS: Albuterol-Ipratrop 3 mg / 0.5 (3 ml) UD INH SCH ×6 (00:12→19:21)
[2016-05-24] MEDS: methylPREDNISolone 40 MG in Sodium Chloride 0.9% 50 ML IV SCH ×4 (00:25→17:34)
[2016-05-24] MEDS: Acyclovir 5% OINT 15 APPLIC/15 GM TOP SCH ×8 (00:26→23:58)
[2016-05-24] MEDS: Enoxaparin 40 mg Syringe SC SCH (09:26)
[2016-05-24] MEDS: guaiFENesin 600 mg ER Tab PO SCH ×2 (09:26→21:21)
[2016-05-24] MEDS: Metoprolol Succinate 50 mg XL Tab PO SCH (09:27)
--- NOTE | 2016-05-24 14:40 | CP.PCM.PN ---
Subjective - Date & Time of Evaluation Date of Evaluation: 05/24/16 - Subjective Subjective: F/U COPD Exacerbation Pt breathing better, L chest congestion and dry cough improving. Objective - Vital Signs/Intake and Output Vital Signs (last 24 hours): Temp Pulse Resp BP Pulse Ox 97.3 F L 72 20 140/80 97 05/24/16 08:29 05/24/16 09:27 05/24/16 08:29 05/24/16 09:27 05/24/16 08:29 - Medications Medications: Current Medications Acyclovir (Zovirax 5% Oint) 1 applic TOP Q3 [facility] Last Admin: 05/24/16 13:04 Dose: 1 applic Acyclovir (Zovirax) 800 mg PO 5XD [facility] Last Admin: 05/24/16 13:04 Dose: 800 mg Al Hydrox/Mg Hydrox/Simethicone (Maalox Plus 30 Ml) 30 ml PO Q4 PRN PRN Reason: Indigestion / Heartburn Albuterol/Ipratropium (Duoneb 3 Mg/0.5 Mg (3 Ml) Ud) 3 ml INH RQ4 [facility] Last Admin: 05/24/16 11:44 Dose: 3 ml Aspirin (Ecotrin) 81 mg PO DAILY [facility] Last Admin: 05/24/16 09:25 Dose: 81 mg Atorvastatin Calcium (Lipitor) 40 mg PO HS [facility] Last Admin: 05/23/16 21:09 Dose: 40 mg Cholecalciferol (Vitamin D) 5,000 iu PO DAILY [facility] Last Admin: 05/24/16 09:25 Dose: 5,000 iu Enoxaparin Sodium (Lovenox) 40 mg SC DAILY [facility] PRN Reason: Protocol Last Admin: 05/24/16 09:26 Dose: 40 mg Folic Acid (Folic Acid) 1 mg PO DAILY [facility] Last Admin: 05/24/16 09:25 Dose: 1 mg Furosemide (Lasix) 40 mg PO DAILY [facility] Last Admin: 05/24/16 09:25 Dose: 40 mg Guaifenesin (Mucinex La) 600 mg PO Q12 [facility] Last Admin: 05/24/16 09:26 Dose: 600 mg Levofloxacin/Dextrose (Levaquin 750mg) 150 mls @ 100 mls/hr IVPB DAILY@1700 [facility] Last Admin: 05/23/16 17:30 Dose: 100 mls/hr Methylprednisolone 40 mg/ (Sodium Chloride) 50 mls @ 100 mls/hr IV Q6H [facility] Last Admin: 05/24/16 12:50 Dose: 100 mls/hr Ibuprofen (Motrin Tab) 400 mg PO Q6 PRN PRN Reason: Pain, Mild (1-3) Metoprolol Succinate (Toprol Xl) 50 mg PO DAILY [facility] Last Admin: 05/24/16 09:27 Dose: 50 mg Promethazine HCl/Codeine (Phenergan/Codeine Oral Syrup) 10 ml PO Q6 PRN PRN Reason: Cough Last Admin: 05/24/16 13:56 Dose: 10 ml Tamsulosin HCl (Flomax) 0.[address] [facility] Last Admin: 05/23/16 21:09 Dose: 0.4 mg Zolpidem Tartrate (Ambien) [address] [facility] Last Admin: 05/23/16 22:33 Dose: 10 mg - Constitutional Appears: No Acute Distress - Head Exam Head Exam: NORMAL INSPECTION - Eye Exam Eye Exam: PERRL - ENT Exam ENT Exam: Normal Oropharynx - Neck Exam Neck Exam: Normal Inspection - Respiratory Exam Respiratory Exam: Decreased Breath Sounds (at bases) - Cardiovascular Exam Cardiovascular Exam: REGULAR RHYTHM - GI/Abdominal Exam GI & Abdominal Exam: Soft, Normal Bowel Sounds - Extremities Exam Extremities Exam: Normal Inspection - Back Exam Additional comments: Blister with erythema to base - Neurological Exam Neurological Exam: Alert, Oriented x3. absent: Motor Sensory Deficit - Psychiatric Exam Psychiatric exam: Normal Mood - Skin Skin Exam: Erythema, Warm Assessment and Plan - Assessment and Plan (Free Text) Assessment: COPD exacerbation Acute high Emphysema Chronic Lesion R Gluteal Acute high CAD Chronic HTN Chronic R/A Chronic Plan: Continue Levaquin,Duoneb,Solumedrol, Phenergan with Co, f/u Varicela Zoster and Herpes, IGG, IGM
[2016-05-24 15:11] LABS: VARICELLA-ZOSTER AB (IGG) 2.07 (>/=1.10)
[2016-05-24] MEDS ORDERED: MethylPREDNISolone 40 mg Vial ONE (17:26)
[2016-05-25] MEDS: methylPREDNISolone 40 MG in Sodium Chloride 0.9% 50 ML IV SCH ×5 (00:01→23:56)
[2016-05-25] MEDS: Albuterol-Ipratrop 3 mg / 0.5 (3 ml) UD INH SCH ×6 (00:12→19:19)
[2016-05-25] MEDS: Acyclovir 5% OINT 15 APPLIC/15 GM TOP SCH ×8 (01:11→21:06)
[2016-05-25] MEDS: Enoxaparin 40 mg Syringe SC SCH (08:09)
[2016-05-25] MEDS: Metoprolol Succinate 50 mg XL Tab PO SCH (08:09)
[2016-05-25] MEDS: guaiFENesin 600 mg ER Tab PO SCH ×2 (08:11→21:04)
[2016-05-25 15:56] LABS: VARICELLA-ZOSTER AB (IGM) 1.16 (<=0.90)
--- NOTE | 2016-05-25 19:59 | CP.PCM.PN ---
Subjective - Date & Time of Evaluation Date of Evaluation: 05/25/16 - Subjective Subjective: F/U COPD Exacerbatiion. Pt c/o of cough, chest congestion improved. Objective - Vital Signs/Intake and Output Vital Signs (last 24 hours): Temp Pulse Resp BP Pulse Ox 97.7 F 70 20 137/81 96 05/25/16 16:31 05/25/16 16:31 05/25/16 16:31 05/25/16 16:31 05/25/16 16:31 - Medications Medications: Current Medications Acyclovir (Zovirax 5% Oint) 1 applic TOP Q3 [facility] Last Admin: 05/25/16 17:03 Dose: 1 applic Acyclovir (Zovirax) 800 mg PO 5XD [facility] Last Admin: 05/25/16 17:03 Dose: 800 mg Al Hydrox/Mg Hydrox/Simethicone (Maalox Plus 30 Ml) 30 ml PO Q4 PRN PRN Reason: Indigestion / Heartburn Albuterol/Ipratropium (Duoneb 3 Mg/0.5 Mg (3 Ml) Ud) 3 ml INH RQ4 [facility] Last Admin: 05/25/16 19:19 Dose: 3 ml Aspirin (Ecotrin) 81 mg PO DAILY [facility] Last Admin: 05/25/16 08:10 Dose: 81 mg Atorvastatin Calcium (Lipitor) 40 mg PO HS [facility] Last Admin: 05/24/16 21:21 Dose: 40 mg Cholecalciferol (Vitamin D) 5,000 iu PO DAILY [facility] Last Admin: 05/25/16 08:10 Dose: 5,000 iu Enoxaparin Sodium (Lovenox) 40 mg SC DAILY [facility] PRN Reason: Protocol Last Admin: 05/25/16 08:09 Dose: 40 mg Folic Acid (Folic Acid) 1 mg PO DAILY [facility] Last Admin: 05/25/16 08:10 Dose: 1 mg Furosemide (Lasix) 40 mg PO DAILY [facility] Last Admin: 05/25/16 08:09 Dose: 40 mg Guaifenesin (Mucinex La) 600 mg PO Q12 [facility] Last Admin: 05/25/16 08:11 Dose: 600 mg Levofloxacin/Dextrose (Levaquin 750mg) 150 mls @ 100 mls/hr IVPB DAILY@1700 [facility] Last Admin: 05/25/16 17:05 Dose: 100 mls/hr Methylprednisolone 40 mg/ (Sodium Chloride) 50 mls @ 100 mls/hr IV Q6H [facility] Last Admin: 05/25/16 17:03 Dose: 100 mls/hr Ibuprofen (Motrin Tab) 400 mg PO Q6 PRN PRN Reason: Pain, Mild (1-3) Metoprolol Succinate (Toprol Xl) 50 mg PO DAILY [facility] Last Admin: 05/25/16 08:09 Dose: 50 mg Promethazine HCl/Codeine (Phenergan/Codeine Oral Syrup) 10 ml PO Q6 PRN PRN Reason: Cough Last Admin: 05/24/16 13:56 Dose: 10 ml Tamsulosin HCl (Flomax) 0.4 mg PO [facility] Last Admin: 05/24/16 21:21 Dose: 0.4 mg Zolpidem Tartrate (Ambien) 10 mg PO HS [facility] Last Admin: 05/24/16 21:21 Dose: 10 mg - Constitutional Appears: No Acute Distress - Head Exam Head Exam: NORMAL INSPECTION - Eye Exam Eye Exam: PERRL - ENT Exam ENT Exam: Normal Oropharynx - Neck Exam Neck Exam: Normal Inspection - Respiratory Exam Respiratory Exam: Decreased Breath Sounds (at bases) - Cardiovascular Exam Cardiovascular Exam: REGULAR RHYTHM - GI/Abdominal Exam GI & Abdominal Exam: Soft, Normal Bowel Sounds - Extremities Exam Extremities Exam: Normal Inspection - Back Exam Additional comments: R buttock with dry scab and erythematous base, tenderness in the area - Neurological Exam Neurological Exam: Alert, Oriented x3 Additional comments: No motor sensory deficit. - Psychiatric Exam Psychiatric exam: Normal Mood - Skin Skin Exam: Warm Assessment and Plan - Assessment and Plan (Free Text) Assessment: COPD Exacerbation Acute high - Improved. Emphysema Chronic R Gluteal shingles Acute high CAD Chronic HTN Chronic Plan: Continue Zorivax, Levaquin, Phenergan and rest of Tx.
[2016-05-26] MEDS: Albuterol-Ipratrop 3 mg / 0.5 (3 ml) UD INH SCH ×6 (00:27→19:23)
[2016-05-26] MEDS: Acyclovir 5% OINT 15 APPLIC/15 GM TOP SCH ×8 (04:58→21:27)
[2016-05-26] MEDS: methylPREDNISolone 40 MG in Sodium Chloride 0.9% 50 ML IV SCH ×2 (05:20→12:45)
[2016-05-26] MEDS: guaiFENesin 600 mg ER Tab PO SCH ×2 (09:29→20:05)
[2016-05-26] MEDS: Metoprolol Succinate 50 mg XL Tab PO SCH (09:29)
[2016-05-26] MEDS: Enoxaparin 40 mg Syringe SC SCH ×2 (09:30→09:38)
--- NOTE | 2016-05-26 14:47 | CP.PCM.PN ---
Subjective - Date & Time of Evaluation Date of Evaluation: 05/26/16 - Subjective Subjective: F/U COPD Exacerbation. Pt c/o of cough, chest congestion improved. Objective - Vital Signs/Intake and Output Vital Signs (last 24 hours): Temp Pulse Resp BP Pulse Ox 97.8 F 69 20 144/79 99 05/26/16 08:00 05/26/16 09:29 05/26/16 08:00 05/26/16 09:29 05/26/16 08:00 - Medications Medications: Current Medications Acyclovir (Zovirax 5% Oint) 1 applic TOP Q3 [facility] Last Admin: 05/26/16 09:31 Dose: 1 applic Acyclovir (Zovirax) 800 mg PO 5XD [facility] Last Admin: 05/26/16 12:45 Dose: 800 mg Al Hydrox/Mg Hydrox/Simethicone (Maalox Plus 30 Ml) 30 ml PO Q4 PRN PRN Reason: Indigestion / Heartburn Albuterol/Ipratropium (Duoneb 3 Mg/0.5 Mg (3 Ml) Ud) 3 ml INH RQ4 [facility] Last Admin: 05/26/16 11:02 Dose: 3 ml Aspirin (Ecotrin) 81 mg PO DAILY [facility] Last Admin: 05/26/16 09:33 Dose: 81 mg Atorvastatin Calcium (Lipitor) 40 mg PO HS [facility] Last Admin: 05/25/16 21:04 Dose: 40 mg Cholecalciferol (Vitamin D) 5,000 iu PO DAILY [facility] Last Admin: 05/26/16 09:29 Dose: 5,000 iu Folic Acid (Folic Acid) 1 mg PO DAILY [facility] Last Admin: 05/26/16 09:29 Dose: 1 mg Furosemide (Lasix) 40 mg PO DAILY [facility] Last Admin: 05/26/16 09:29 Dose: 40 mg Guaifenesin (Mucinex La) 600 mg PO Q12 [facility] Last Admin: 05/26/16 09:29 Dose: 600 mg Levofloxacin/Dextrose (Levaquin 750mg) 150 mls @ 100 mls/hr IVPB DAILY@1700 [facility] Last Admin: 05/25/16 17:05 Dose: 100 mls/hr Methylprednisolone 30 mg/ (Sodium Chloride) 50 mls @ 100 mls/hr IVPB Q8@0500, 1300,2100 [facility] Ibuprofen (Motrin Tab) 400 mg PO Q6 PRN PRN Reason: Pain, Mild (1-3) Metoprolol Succinate (Toprol Xl) 50 mg PO DAILY [facility] Last Admin: 05/26/16 09:29 Dose: 50 mg Promethazine HCl/Codeine (Phenergan/Codeine Oral Syrup) 10 ml PO Q6 PRN PRN Reason: Cough Last Admin: 05/24/16 13:56 Dose: 10 ml Tamsulosin HCl (Flomax) 0.4 mg PO [facility] Last Admin: 05/25/16 21:04 Dose: 0.4 mg Zolpidem Tartrate (Ambien) 10 mg PO HS [facility] Last Admin: 05/25/16 22:35 Dose: 10 mg - Constitutional Appears: No Acute Distress - Head Exam Head Exam: NORMAL INSPECTION - Eye Exam Eye Exam: PERRL - ENT Exam ENT Exam: Normal Oropharynx - Neck Exam Neck Exam: Normal Inspection - Respiratory Exam Respiratory Exam: Decreased Breath Sounds (at bases) - Cardiovascular Exam Cardiovascular Exam: REGULAR RHYTHM - GI/Abdominal Exam GI & Abdominal Exam: Soft, Normal Bowel Sounds - Extremities Exam Extremities Exam: Normal Inspection - Back Exam Additional comments: Redness R buttock with shingles. - Neurological Exam Neurological Exam: Alert, Oriented x3. absent: Motor Sensory Deficit - Psychiatric Exam Psychiatric exam: Normal Mood - Skin Skin Exam: Warm Assessment and Plan - Assessment and Plan (Free Text) Assessment: COPD Exacerbation Improved Emphysema Chronic Herpes Zoster R Gluteal Acute high CAD Chronic HTN Chronic Plan: Continue Zorivax, Levaquin, Phenergan and rest of Tx.
[2016-05-26] MEDS: methylPREDNISolone 30 MG in Sodium Chloride 0.9% 50 ML IVPB SCH (21:26)
[2016-05-27] MEDS: Albuterol-Ipratrop 3 mg / 0.5 (3 ml) UD INH SCH ×7 (00:13→23:43)
[2016-05-27] MEDS: Acyclovir 5% OINT 15 APPLIC/15 GM TOP SCH ×8 (00:16→21:23)
[2016-05-27] MEDS: methylPREDNISolone 30 MG in Sodium Chloride 0.9% 50 ML IVPB SCH (04:48)
[2016-05-27] MEDS: guaiFENesin 600 mg ER Tab PO SCH ×2 (08:08→21:13)
[2016-05-27] MEDS: Metoprolol Succinate 50 mg XL Tab PO SCH (08:09)
--- NOTE | 2016-05-27 10:33 | RAD ---
HISTORY: Exacerbation COPD. COMPARISON: 05/20/2016. FINDINGS: LUNGS: No active pulmonary disease. PLEURA: No significant pleural effusion identified, no pneumothorax apparent. CARDIOVASCULAR: No radiographic findings to suggest acute or significant cardiovascular disease. OSSEOUS STRUCTURES: No significant abnormalities. VISUALIZED UPPER ABDOMEN: Normal. OTHER FINDINGS: None. IMPRESSION: No active disease. No significant interval change compared to the prior examination(s).
[2016-05-27] MEDS ORDERED: Sodium Chloride 3% for Inhalation 4 ML VIAL.NEB IH PRN (11:46)
--- NOTE | 2016-05-27 12:39 | CP.PCM.PN ---
Subjective - Date & Time of Evaluation Date of Evaluation: 05/27/16 Time of Evaluation: 08:30 - Subjective Subjective: F/U COPD Exacerbation. Pt had respiratory distress yesterday, improved today. Objective - Vital Signs/Intake and Output Vital Signs (last 24 hours): Temp Pulse Resp BP Pulse Ox 97.7 F 61 20 131/80 98 05/27/16 08:00 05/27/16 08:09 05/27/16 08:00 05/27/16 08:09 05/27/16 08:00 - Medications Medications: Current Medications Acetylcysteine (Mucomyst 10% 4ml) 2 ml IH RQ8 [facility] Acyclovir (Zovirax 5% Oint) 1 applic TOP Q3 [facility] Last Admin: 05/27/16 12:14 Dose: 1 applic Acyclovir (Zovirax) 800 mg PO 5XD [facility] Last Admin: 05/27/16 12:14 Dose: 800 mg Al Hydrox/Mg Hydrox/Simethicone (Maalox Plus 30 Ml) 30 ml PO Q4 PRN PRN Reason: Indigestion / Heartburn Albuterol/Ipratropium (Duoneb 3 Mg/0.5 Mg (3 Ml) Ud) 3 ml INH RQ4 [facility] Last Admin: 05/27/16 11:04 Dose: 3 ml Aspirin (Ecotrin) 81 mg PO DAILY [facility] Last Admin: 05/27/16 08:09 Dose: 81 mg Atorvastatin Calcium (Lipitor) 40 mg PO HS [facility] Last Admin: 05/26/16 21:26 Dose: 40 mg Budesonide (Pulmicort Respules) 0.25 mg INH RBID [facility] Cholecalciferol (Vitamin D) 5,000 iu PO DAILY [facility] Last Admin: 05/27/16 08:08 Dose: 5,000 iu Folic Acid (Folic Acid) 1 mg PO DAILY [facility] Last Admin: 05/27/16 08:09 Dose: 1 mg Furosemide (Lasix) 40 mg PO DAILY [facility] Last Admin: 05/27/16 08:09 Dose: 40 mg Guaifenesin (Mucinex La) 600 mg PO Q12 [facility] Last Admin: 05/27/16 08:08 Dose: 600 mg Levofloxacin/Dextrose (Levaquin 750mg) 150 mls @ 100 mls/hr IVPB DAILY@1700 [facility] Last Admin: 05/26/16 16:49 Dose: 100 mls/hr Methylprednisolone 40 mg/ (Sodium Chloride) 50 mls @ 100 mls/hr IVPB Q8@0500, 1300,2100 [facility] Ibuprofen (Motrin Tab) 400 mg PO Q6 PRN PRN Reason: Pain, Mild (1-3) Metoprolol Succinate (Toprol Xl) 50 mg PO DAILY [facility] Last Admin: 05/27/16 08:09 Dose: 50 mg Promethazine HCl/Codeine (Phenergan/Codeine Oral Syrup) 10 ml PO Q6 PRN PRN Reason: Cough Last Admin: 05/24/16 13:56 Dose: 10 ml Fluticasone/Salmeterol (Advair Diskus 500/50) 1 puff IH Q12 [facility] Tamsulosin HCl (Flomax) 0.4 mg PO HS [facility] Last Admin: 05/26/16 21:26 Dose: 0.4 mg Zolpidem Tartrate (Ambien) 10 mg PO [facility] Last Admin: 05/26/16 22:15 Dose: 10 mg - Constitutional Appears: No Acute Distress - Head Exam Head Exam: NORMAL INSPECTION - Eye Exam Eye Exam: PERRL - ENT Exam ENT Exam: Normal Oropharynx - Neck Exam Neck Exam: Normal Inspection - Respiratory Exam Respiratory Exam: Decreased Breath Sounds (at bases), Rhonchi (scattered at bases) - Cardiovascular Exam Cardiovascular Exam: REGULAR RHYTHM - GI/Abdominal Exam GI & Abdominal Exam: Soft, Normal Bowel Sounds - Extremities Exam Extremities Exam: Normal Inspection - Back Exam Additional comments: R buttock with angelito scabs and erythematous base, tenderness in the area. - Neurological Exam Neurological Exam: Alert, Oriented x3. absent: Motor Sensory Deficit - Psychiatric Exam Psychiatric exam: Normal Mood - Skin Skin Exam: Warm Assessment and Plan - Assessment and Plan (Free Text) Assessment: COPD Exacerbation Acute high Emphysema Chronic R Gluteal Herpes Zoster Acute high CAD Chronic HTN Chronic. Plan: Increased Solumedrol, Duoneb, Pulmicort, Mucomyst and resty of Tx. CXR= Negative.
[2016-05-27] MEDS: Acetylcysteine 10% 4 ML IH SCH ×2 (16:01→23:43)
[2016-05-27] MEDS: Budesonide 0.25 mg/2 ml Inhal Susp UD INH SCH (19:11)
[2016-05-27] MEDS: Fluticasone-Salmeterol 500-50mcg Diskus IH SCH (21:13)
[2016-05-27] MEDS: methylPREDNISolone 40 MG in Sodium Chloride 0.9% 50 ML IVPB SCH (21:16)
[2016-05-28] MEDS: Acyclovir 5% OINT 15 APPLIC/15 GM TOP SCH ×8 (01:06→22:21)
[2016-05-28] MEDS: Albuterol-Ipratrop 3 mg / 0.5 (3 ml) UD INH SCH ×5 (04:00→19:15)
[2016-05-28] MEDS: methylPREDNISolone 40 MG in Sodium Chloride 0.9% 50 ML IVPB SCH ×3 (05:22→21:00)
[2016-05-28] MEDS: Acetylcysteine 10% 4 ML IH SCH ×2 (07:28→15:48)
[2016-05-28] MEDS: Budesonide 0.25 mg/2 ml Inhal Susp UD INH SCH ×2 (07:28→19:15)
[2016-05-28 07:32] LABS: HEMATOCRIT 39.2 % (35.0-51.0); MEAN CELL VOLUME 90.5 fl (80.0-94.0); MEAN CORPUSCULAR HEMOGLOBIN 29.7 pg (27.0-31.0); MEAN CORPUSCULAR HGB CONC 32.8 g/dL (33.0-37.0); RED CELL DISTRIBUTION WIDTH 17.3 % (11.5-14.5); WHITE BLOOD COUNT 26.5 K/uL (4.8-10.8)
[2016-05-28] MEDS: Fluticasone-Salmeterol 500-50mcg Diskus IH SCH ×2 (08:20→21:00)
[2016-05-28] MEDS: guaiFENesin 600 mg ER Tab PO SCH ×2 (08:21→21:00)
[2016-05-28] MEDS: Metoprolol Succinate 50 mg XL Tab PO SCH (08:22)
--- NOTE | 2016-05-28 15:01 | CP.PCM.PN ---
Subjective - Date & Time of Evaluation Date of Evaluation: 05/28/16 Time of Evaluation: 12:20 - Subjective Subjective: F/U COPD Exacerbation Pt breathing better today, has been ambulating, cough improving. Objective - Vital Signs/Intake and Output Vital Signs (last 24 hours): Temp Pulse Resp BP Pulse Ox 97.6 F 90 20 149/80 98 05/28/16 08:03 05/28/16 08:22 05/28/16 08:03 05/28/16 08:22 05/28/16 08:03 - Medications Medications: Current Medications Acetylcysteine (Mucomyst 10% 4ml) 2 ml IH RQ8 [facility] Last Admin: 05/28/16 07:28 Dose: 2 ml Acyclovir (Zovirax 5% Oint) 1 applic TOP Q3 [facility] Last Admin: 05/28/16 12:05 Dose: 1 applic Acyclovir (Zovirax) 800 mg PO 5XD [facility] Last Admin: 05/28/16 12:04 Dose: 800 mg Al Hydrox/Mg Hydrox/Simethicone (Maalox Plus 30 Ml) 30 ml PO Q4 PRN PRN Reason: Indigestion / Heartburn Last Admin: 05/27/16 18:40 Dose: 30 ml Albuterol/Ipratropium (Duoneb 3 Mg/0.5 Mg (3 Ml) Ud) 3 ml INH RQ4 [facility] Last Admin: 05/28/16 11:00 Dose: 3 ml Aspirin (Ecotrin) 81 mg PO DAILY [facility] Last Admin: 05/28/16 08:21 Dose: 81 mg Atorvastatin Calcium (Lipitor) 40 mg PO HS [facility] Last Admin: 05/27/16 21:13 Dose: 40 mg Budesonide (Pulmicort Respules) 0.25 mg INH RBID [facility] Last Admin: 05/28/16 07:28 Dose: 0.25 mg Cholecalciferol (Vitamin D) 5,000 iu PO DAILY [facility] Last Admin: 05/28/16 08:21 Dose: 5,000 iu Enoxaparin Sodium (Lovenox) 40 mg SC DAILY [facility] PRN Reason: Protocol Folic Acid (Folic Acid) 1 mg PO DAILY [facility] Last Admin: 05/28/16 08:21 Dose: 1 mg Furosemide (Lasix) 40 mg PO DAILY [facility] Last Admin: 05/28/16 08:21 Dose: 40 mg Guaifenesin (Mucinex La) 600 mg PO Q12 [facility] Last Admin: 05/28/16 08:21 Dose: 600 mg Levofloxacin/Dextrose (Levaquin 750mg) 150 mls @ 100 mls/hr IVPB DAILY@1700 [facility] Last Admin: 05/27/16 16:27 Dose: 100 mls/hr Methylprednisolone 40 mg/ (Sodium Chloride) 50 mls @ 100 mls/hr IVPB Q12 [facility] Ibuprofen (Motrin Tab) 400 mg PO Q6 PRN PRN Reason: Pain, Mild (1-3) Metoprolol Succinate (Toprol Xl) 50 mg PO DAILY [facility] Last Admin: 05/28/16 08:22 Dose: 50 mg Promethazine HCl/Codeine (Phenergan/Codeine Oral Syrup) 10 ml PO Q6 PRN PRN Reason: Cough Last Admin: 05/24/16 13:56 Dose: 10 ml Fluticasone/Salmeterol (Advair Diskus 500/50) 1 puff IH Q12 [facility] Last Admin: 05/28/16 08:20 Dose: 1 unit Tamsulosin HCl (Flomax) 0.4 mg PO [facility] Last Admin: 05/27/16 21:13 Dose: 0.4 mg Zolpidem Tartrate (Ambien) 10 mg PO [facility] Last Admin: 05/27/16 22:26 Dose: 10 mg - Labs Labs: 05/28/16 07:05 - Constitutional Appears: No Acute Distress - Head Exam Head Exam: NORMAL INSPECTION - Eye Exam Eye Exam: PERRL - ENT Exam ENT Exam: Normal Oropharynx - Neck Exam Neck Exam: Normal Inspection - Respiratory Exam Respiratory Exam: Decreased Breath Sounds (at bases), Rhonchi (scattered at bases) - Cardiovascular Exam Cardiovascular Exam: REGULAR RHYTHM - GI/Abdominal Exam GI & Abdominal Exam: Soft, Normal Bowel Sounds - Extremities Exam Extremities Exam: Normal Inspection - Back Exam Additional comments: R Buttock with dry scab and erythematous base, tenderness in the area. - Neurological Exam Neurological Exam: Alert, Oriented x3. absent: Motor Sensory Deficit - Psychiatric Exam Psychiatric exam: Normal Mood - Skin Skin Exam: Warm Assessment and Plan - Assessment and Plan (Free Text) Assessment: COPD Exacerbation Acute high Improving. Emphysema Chronic R Gluteal Herpes Zoster Acute high CAD Chronic HTN Chronic. Plan: Taper Steroids, continue rest of medications.
[2016-05-29] MEDS: Albuterol-Ipratrop 3 mg / 0.5 (3 ml) UD INH SCH ×4 (00:03→11:29)
[2016-05-29] MEDS: Acetylcysteine 10% 4 ML IH SCH ×2 (00:03→11:30)
[2016-05-29] MEDS: Acyclovir 5% OINT 15 APPLIC/15 GM TOP SCH ×3 (02:29→07:45)
[2016-05-29] MEDS: Budesonide 0.25 mg/2 ml Inhal Susp UD INH SCH (07:31)
[2016-05-29 08:26] VITALS: BP 135/85; PULSE 65; TEMP 97.6; O2SAT 99
[2016-05-29] MEDS: Fluticasone-Salmeterol 500-50mcg Diskus IH SCH (09:11)
[2016-05-29] MEDS: Enoxaparin 40 mg Syringe SC SCH ×2 (09:12→09:25)
[2016-05-29] MEDS: Metoprolol Succinate 50 mg XL Tab PO SCH (09:13)
[2016-05-29] MEDS: guaiFENesin 600 mg ER Tab PO SCH (09:14)
[2016-05-29] MEDS: methylPREDNISolone 40 MG in Sodium Chloride 0.9% 50 ML IVPB SCH (10:00)
--- NOTE | 2016-05-29 14:34 | CP.PCM.PN ---
Subjective - Date & Time of Evaluation Date of Evaluation: 05/29/16 Time of Evaluation: 12:20 - Subjective Subjective: F/U COPD Exacerbation. Pt with no cough, no SOB, no GREEN. Objective - Vital Signs/Intake and Output Vital Signs (last 24 hours): Temp Pulse Resp BP Pulse Ox 97.6 F 65 20 135/85 99 05/29/16 08:25 05/29/16 09:13 05/29/16 08:25 05/29/16 09:13 05/29/16 08:25 - Medications Medications: Current Medications Acetylcysteine (Mucomyst 10% 4ml) 2 ml IH RQ8 [facility] Last Admin: 05/29/16 11:30 Dose: Not Given Acyclovir (Zovirax 5% Oint) 1 applic TOP Q3 [facility] Last Admin: 05/29/16 07:45 Dose: 1 applic Acyclovir (Zovirax) 800 mg PO 5XD [facility] Last Admin: 05/29/16 12:10 Dose: 800 mg Al Hydrox/Mg Hydrox/Simethicone (Maalox Plus 30 Ml) 30 ml PO Q4 PRN PRN Reason: Indigestion / Heartburn Last Admin: 05/27/16 18:40 Dose: 30 ml Albuterol/Ipratropium (Duoneb 3 Mg/0.5 Mg (3 Ml) Ud) 3 ml INH RQ4 [facility] Last Admin: 05/29/16 11:29 Dose: 3 ml Aspirin (Ecotrin) 81 mg PO DAILY [facility] Last Admin: 05/29/16 09:12 Dose: 81 mg Atorvastatin Calcium (Lipitor) 40 mg PO HS [facility] Last Admin: 05/28/16 22:20 Dose: 40 mg Budesonide (Pulmicort Respules) 0.25 mg INH RBID [facility] Last Admin: 05/29/16 07:31 Dose: 0.25 mg Cholecalciferol (Vitamin D) 5,000 iu PO DAILY [facility] Last Admin: 05/29/16 09:14 Dose: 5,000 iu Enoxaparin Sodium (Lovenox) 40 mg SC DAILY [facility] PRN Reason: Protocol Last Admin: 05/29/16 09:25 Dose: Not Given Folic Acid (Folic Acid) 1 mg PO DAILY [facility] Last Admin: 05/29/16 09:12 Dose: 1 mg Furosemide (Lasix) 40 mg PO DAILY [facility] Last Admin: 05/29/16 09:13 Dose: 40 mg Guaifenesin (Mucinex La) 600 mg PO Q12 [facility] Last Admin: 05/29/16 09:14 Dose: 600 mg Levofloxacin/Dextrose (Levaquin 750mg) 150 mls @ 100 mls/hr IVPB DAILY@1700 [facility] Last Admin: 05/28/16 17:13 Dose: 100 mls/hr Methylprednisolone 40 mg/ (Sodium Chloride) 50 mls @ 100 mls/hr IVPB Q12 [facility] Last Admin: 05/29/16 10:00 Dose: 100 mls/hr Ibuprofen (Motrin Tab) 400 mg PO Q6 PRN PRN Reason: Pain, Mild (1-3) Metoprolol Succinate (Toprol Xl) 50 mg PO DAILY [facility] Last Admin: 05/29/16 09:13 Dose: 50 mg Promethazine HCl/Codeine (Phenergan/Codeine Oral Syrup) 10 ml PO Q6 PRN PRN Reason: Cough Last Admin: 05/24/16 13:56 Dose: 10 ml Fluticasone/Salmeterol (Advair Diskus 500/50) 1 puff IH Q12 [facility] Last Admin: 05/29/16 09:11 Dose: 1 unit Tamsulosin HCl (Flomax) 0.4 mg PO [facility] Last Admin: 05/28/16 22:20 Dose: 0.4 mg Zolpidem Tartrate (Ambien) 10 mg PO [facility] Last Admin: 05/28/16 22:19 Dose: 10 mg - Labs Labs: 05/28/16 07:05 - Constitutional Appears: No Acute Distress - Head Exam Head Exam: NORMAL INSPECTION - Eye Exam Eye Exam: PERRL - ENT Exam ENT Exam: Normal Oropharynx - Neck Exam Neck Exam: Normal Inspection - Respiratory Exam Respiratory Exam: Decreased Breath Sounds (at bases) Additional comments: No bronchospasm - Cardiovascular Exam Cardiovascular Exam: REGULAR RHYTHM - GI/Abdominal Exam GI & Abdominal Exam: Soft, Normal Bowel Sounds - Extremities Exam Extremities Exam: Normal Inspection - Back Exam Additional comments: R buttock dry scab base and erythematous base, tenderness in the area. - Neurological Exam Neurological Exam: Alert, Oriented x3. absent: Motor Sensory Deficit - Psychiatric Exam Psychiatric exam: Normal Mood - Skin Skin Exam: Warm Assessment and Plan - Assessment and Plan (Free Text) Assessment: COPD Exacerbation improved Plan: Pt stable to be discharged, see instruction medication sheet, f/u in my office in a week.
== END 2016-05-29 14:20 | disposition home or self-care (01) | DRG 192 ==
LOC: H.TCU 21:10
PROVIDERS: ADMIT Internal Medicine Pulmonary Disease; ATTEND Internal Medicine Pulmonary Disease
PROC: F07M0ZZ Range of Motion and Joint Mobility Treatment of Musculoskeletal System - Whole Body (ICD-10-PCS; principal; 2016-05-22)
PROC: 5A0955Z Assistance with Respiratory Ventilation, Greater than 96 Consecutive Hours (ICD-10-PCS; 2016-05-22)
DX: J44.1 Chronic obstructive pulmonary disease with (acute) exacerbation (principal); B02.9 Zoster without complications; I10 Essential (primary) hypertension; I25.10 Atherosclerotic heart disease of native coronary artery without angina pectoris

== ENCOUNTER 2016-06-02 06:20 | Inpatient (IN) | payer MEDICARE, MEDICAID ==
[2016-06-02 06:20] VITALS: BMI 31.6
--- NOTE | 2016-06-02 07:09 | ED PDOC ---
HPI: SOB/CHF/COPD Time Seen by Provider: 06/02/16 07:04 Chief Complaint (Nursing): Shortness Of Breath Chief Complaint (Provider): shortness of breath History Per: Patient History/Exam Limitations: no limitations Additional Complaint(s): 70yo male complaining of shortness of breath at home for several days. No fever. Patient states he was discharged from this hospital 3 days ago. Past Medical History Reviewed: Historical Data, Nursing Documentation, Vital Signs Vital Signs: Last Vital Signs Temp 98.3 F 06/02/16 06:29 Pulse 103 H 06/02/16 06:29 Resp 18 06/02/16 06:29 BP 104/60 06/02/16 06:29 Pulse Ox 97 06/02/16 07:22 - Medical History PMH: Anemia, Arthritis, CAD, COPD, Emphysema, HTN, Hypercholesterolemia, Rheumatoid Arthritis, Sleep Apnea Denies: HIV, Chronic Kidney Disease - Surgical History Surgical History: Coronary Stent (x 1 done 2 mos ago) - Family History Family History: States: MD - Home Medications Home Medications: Ambulatory Orders Medication Instructions Recorded Folic Acid 1 mg PO DAILY 01/09/16 Metoprolol Succinate [Toprol XL] 50 mg PO DAILY 01/09/16 Tamsulosin [Flomax] 0.4 mg PO HS 01/09/16 Aspirin [Ecotrin] 81 mg PO DAILY 02/19/16 Atorvastatin [Lipitor] 40 mg PO HS 04/21/16 Cholecalciferol (Vitamin D3) 5,000 unit PO DAILY 04/21/16 [Vitamin D3] Furosemide [Lasix] 40 mg PO DAILY 04/21/16 Albuterol/Ipratropium [Duoneb 3 3 ml INH RQ4 neb 04/24/16 mg/0.5 mg (3 ml) UD] Promethazine/Codeine 10 ml PO Q6 PRN #0 udc 04/24/16 [Phenergan/Codeine Oral Syrup] guaiFENesin [Mucinex LA] 600 mg PO Q12 30 Days 05/03/16 Ibuprofen [Motrin Tab] 400 mg PO Q6 PRN #0 tab 05/22/16 Fluconazole [Diflucan] 100 mg PO DAILY 05/29/16 Fluticasone/Salmeterol 500/50 1 puff IH Q12 05/29/16 [Advair Diskus 500/50] predniSONE [predniSONE Tab] 30 mg PO DAILY 05/29/16 - Allergies Allergies/Adverse Reactions: Allergies Allergy/AdvReac Type Severity Reaction Status Date / Time No Known Allergies Allergy Verified 06/02/16 06:53 Review of Systems ROS Statement: Except As Marked, All Systems Reviewed And Found Negative Constitutional: Positive for: Weakness. Negative for: Fever Respiratory: Positive for: Shortness of Breath Physical Exam - Reviewed Nursing Documentation Reviewed: Yes Vital Signs Reviewed: Yes - Physical Exam Appears: Positive for: Well, Non-toxic, No Acute Distress Head Exam: Positive for: ATRAUMATIC, NORMAL INSPECTION, NORMOCEPHALIC Skin: Positive for: Warm, Dry Eye Exam: Positive for: EOMI, PERRL Cardiovascular/Chest: Positive for: Regular Rate, Rhythm Respiratory: Positive for: Rhonchi (scattered), Wheezing (expiratory). Negative for: Rales Gastrointestinal/Abdominal: Positive for: Other (right lower quadrant ecchymosis ) Extremity: Positive for: Other (Right hand ecchymosis, right arm ecchymosis. ) Neurologic/Psych: Positive for: Alert, Oriented - Laboratory Results Result Diagrams: 06/02/16 07:44 06/02/16 07:44 - ECG O2 Sat by Pulse Oximetry: 97 (RA) Pulse Ox Interpretation: Normal Medical Decision Making Medical Decision Makin: EKG, CXR, VBG shock panel, blood culture, labs, duonebs, solumedrol ordered. Disposition - Clinical Impression Clinical Impression: COPD exacerbation, Systemic inflammatory response syndrome (SIRS) - Patient ED Disposition Is Patient to be Admitted: Yes - Disposition Disposition Time: 08:05 Condition: FAIR - Pt Status Changed To: Hospital Disposition Of: Observation - POA Present On Arrival: None Additional Comments - Additional Comments Additional Comments: Scribe Attestation: Documented by Bentley Jefferson acting as a scribe for Felice Flores MD. Provider Scribe Attestation: All medical record entries made by the Scribe were at my direction and personally dictated by me. I have reviewed the chart and agree that the record accurately reflects my personal performance of the history, physical exam, medical decision making, and the department course for this patient. I have also personally directed, reviewed, and agree with the discharge instructions and disposition.
[2016-06-02] MEDS ORDERED: Albuterol-Ipratrop 3 mg / 0.5 (3 ml) UD IH STA ×2 (07:10→07:11)
[2016-06-02] MEDS ORDERED: Albuterol-Ipratrop 3 mg / 0.5 (3 ml) UD ONE (07:38)
[2016-06-02 07:46] LABS: VENOUS BLOOD GAS BASE EXCESS 6.4 mmol/L (0.0-2.0); VENOUS BLOOD GAS PCO2 36 mmHg (40-60); VENOUS BLOOD PH 7.52 (7.32-7.43)
[2016-06-02 07:50] LABS: BASO # 0.1 K/uL (0.0-0.2); BASO % 0.2 % (0.0-2.0); EOS # 0.1 K/uL (0.0-0.7); EOS % 0.3 % (0.0-4.0); HEMATOCRIT 43.4 % (35.0-51.0); LYMPH # 3.8 K/uL (1.0-4.3); LYMPH % 13.8 % (20.0-40.0); MEAN CELL VOLUME 89.6 fl (80.0-94.0); MEAN CORPUSCULAR HEMOGLOBIN 29.7 pg (27.0-31.0); MEAN CORPUSCULAR HGB CONC 33.1 g/dL (33.0-37.0); MEAN PLATELET VOLUME 9.2 fl (7.2-11.7); MONO # 1.9 K/uL (0.0-0.8); NEUT # 21.5 K/uL (1.8-7.0); NEUT % 78.7 % (50.0-75.0); NRBC % 0.1 % (0.0-0.0); RED CELL DISTRIBUTION WIDTH 17.8 % (11.5-14.5); WHITE BLOOD COUNT 27.3 K/uL (4.8-10.8)
[2016-06-02 07:57] LABS: ALB/GLOB RATIO 1.1 (1.0-2.1); ALT/SGPT 56 U/L (21-72); AST/SGOT 38 U/L (17-59); BILIRUBIN,TOTAL 0.9 mg/dl (0.2-1.3); BLOOD UREA NITROGEN 33 mg/dl (9-20); CALCIUM 9.1 mg/dL (8.4-10.2); CARBON DIOXIDE 26 mmol/L (22-30); CHLORIDE 101 mmol/L (98-107); GFR AFRICAN-AMERICAN > 60; GLUCOSE,RANDOM 78 mg/dL (75-110); POTASSIUM 5.3 MMOL/L (3.6-5.0); SODIUM 139 mmol/l (132-148); TOTAL PROTEIN 6.1 G/DL (6.3-8.2)
[2016-06-02 07:59] LABS: ALKALINE PHOSPHATASE 50 U/L (38-126)
[2016-06-02] MEDS ORDERED: Azithromycin 500 MG in Sodium Chloride 0.9% 250 ML IVPB STA (08:03)
[2016-06-02] MEDS ORDERED: Iohexol 350 MG/100 ML VIAL ONE (09:19)
[2016-06-02] MEDS ORDERED: Sodium Chloride 0.9% 50 ML IV ONE (09:20)
[2016-06-02] MEDS ORDERED: Sodium Chloride 0.9% 1,000 ML IV STA (10:05)
--- NOTE | 2016-06-02 10:10 | CT ---
PROCEDURE: CT Chest with contrast HISTORY: COPD/cough. COMPARISON: 04/21/2016 CT thorax. June 02, 2016. Single-view chest. 12/17/2015 CT thorax TECHNIQUE: Contiguous axial images were obtained through the chest with intravenous contrast enhancement. Sagittal and coronal reconstructions were performed. IV contrast: 95 cc Omnipaque 300. Radiation dose (DLP): mGy-cm. This CT exam was performed using one or more of the following dose reduction techniques: Automated exposure control, adjustment of the mA and/or kV according to patient size, and/or use of iterative reconstruction technique. FINDINGS: LUNGS: Underlying manifestations of COPD and bronchiectasis. Stable chronic interstitial lung disease. MEDIASTINUM: Unremarkable thoracic aorta. No aneurysm or dissection. AllNormal sized heart. Main pulmonary artery unremarkable. No vascular congestion. No lymphadenopathy. PLEURA: No pleural fluid. No pneumothorax. BONES: No fracture. No destructive lesion. UPPER ABDOMEN: No acute findings. Incidental right renal cysts. OTHER FINDINGS: None. IMPRESSION: Hyperinflation, manifestations of COPD. No active pulmonary disease. No new/ acute findings identified compared to prior serial CT scans.
--- NOTE | 2016-06-02 10:49 | RAD ---
HISTORY: Cough. Upright study 07:41. COMPARISON: 05/26/2016. FINDINGS: LUNGS: No active pulmonary disease. PLEURA: No significant pleural effusion identified, no pneumothorax apparent. CARDIOVASCULAR: Normal. OSSEOUS STRUCTURES: No significant abnormalities. VISUALIZED UPPER ABDOMEN: Normal. OTHER FINDINGS: None. IMPRESSION: No active disease. No significant interval change compared to the prior examination(s).
[2016-06-02] MEDS ORDERED: Sodium Chloride 3% for Inhalation 4 ML VIAL.NEB IH PRN (13:25)
--- NOTE | 2016-06-02 14:44 | CP.PCM.HP ---
History of Present Illness - History of Present Illness History of Present Illness: CC: SOB. 70 y/o M, brought to ER [facility] for SOB, onset 2 days [employer] [facility] with no relief. Pt brought to hospital via EMS due to SOB increased on DOA associated to dizziness, no cough but worsening symptom of Weakness. Aggravated factor: SOB at rest and on exertion. Hx of been discharged from [facility] 4 days [employer] [facility] ( 05/29/16) on stable condition, and now Pt return with recurrent symptoms of SOB , GREEN , He was on Prednisone 35 mg daily after discharge and DuoNeb neb Pt denied: Fever, chills, cough, bloody cough, hemoptysis, CP, abdominal pain, n /v/d, syncope, sick contact. No Hx of DVT, PE, B Asthma , Allergic Rhinitis Urticaria, Industrial exposure. PMHx: COPD, Emphysema, Hx smoker 2-3 PPD x 40 yrs (quit 5 yrs ago), ANDRZEJ, PNA , HTN, Coronary stent x1 after he underwent Cardiac Cath in Feb 2016, Anemia, R/ A, O/A, Anemia, Shingles( recently prior to discharge while Patient was in TCU) CXR shows: No active disease. CT Chest: Hyperinflation, manifestation of COPD , no active Pulmonary disease. EKG: Sinus rhythm with premature atrial complexes. CBC: WBC 27.3 Present on Admission - Present on Admission Any Indicators Present on Admission: No Review of Systems - Constitutional Constitutional: Weakness - EENT Eyes: Change in Vision (L eye cataract.), Requires Corrective Lenses Ears: Other (negative) Nose/Mouth/Throat: Other (negative) - Cardiovascular Cardiovascular: Other (negative) - Respiratory Respiratory: Dyspnea, Dyspnea on Exertion, Wheezing - Gastrointestinal Gastrointestinal: Other (negative) - Genitourinary Genitourinary: Other (negative) - Musculoskeletal Musculoskeletal: Arthralgias - Integumentary Integumentary: Other (Ecchymosis.) - Neurological Neurological: Dizziness, Weakness - Psychiatric Psychiatric: Other (negative) - Endocrine Endocrine: Other (negative) - Hematologic/Lymphatic Hematologic: Other (negative) Past Patient History - Past Medical History & Family History Past Medical History?: Yes Pertinent Family History: Unknown - Past Social History Smoking Status: Former Smoker Alcohol: None Drugs: Denies Home Situation {Lives}: Alone - CARDIAC Hx Cardiac Disorders: Yes Hx Hypercholesterolemia: Yes Hx Hypertension: Yes Other/Comment: CAD-Stent - PULMONARY Hx Respiratory Disorders: Yes Hx Chronic Obstructive Pulmonary Disease (COPD): Yes Hx Emphysema: Yes Hx Sleep Apnea: Yes - NEUROLOGICAL Hx Neurological Disorder: No - HEENT Hx HEENT Problems: No Hx Cataracts: (denies) - RENAL Hx Chronic Kidney Disease: No - ENDOCRINE/METABOLIC Hx Endocrine Disorders: No - HEMATOLOGICAL/ONCOLOGICAL Hx Blood Disorders: Yes Hx Anemia: Yes Hx Human Immunodeficiency Virus (HIV): No - INTEGUMENTARY Hx Dermatological Problems: No - MUSCULOSKELETAL/RHEUMATOLOGICAL Hx Musculoskeletal Disorders: Yes Hx Arthritis: Yes Hx Falls: No Hx Rheumatoid Arthritis: Yes - GASTROINTESTINAL Hx Gastrointestinal Disorders: No - GENITOURINARY/GYNECOLOGICAL Hx Genitourinary Disorders: No - PSYCHIATRIC Hx Psychophysiologic Disorder: No Hx Substance Use: No - SURGICAL HISTORY Hx Surgeries: Yes Hx Coronary Stent: Yes (x 1 done 2 mos ago) - ANESTHESIA Hx Anesthesia: Yes Hx Anesthesia Reactions: No Hx Malignant Hyperthermia: No Has any member of the family had a problem w/ anesthesia?: No Meds Home Medications: Home Medication List Medication Instructions Recorded Confirmed Type Azithromycin 500MG/NS 250ml 500 mg IV DAILY #7 bag 06/05/16 06/05/16 Rx [Zithromax 500mg in NS] Hydroxychloroquine Sulfate 400 mg PO DAILY #30 tablet 06/05/16 06/05/16 Rx [Plaquenil] Methotrexate 15 mg PO QWK #30 tab 06/05/16 06/05/16 Rx cefTRIAXone 1 gm [Rocephin 1 gram 1 gm IVPB DAILY #7 bag 06/05/16 06/05/16 Rx IVPB] methylPREDNISolone [Solu-MEDROL] 60 mg IV Q12 #30 ml 06/05/16 06/05/16 Rx Allergies/Adverse Reactions: Allergies Allergy/AdvReac Type Severity Reaction Status Date / Time No Known Allergies Allergy Verified 06/02/16 06:53 Physical Exam - Constitutional Appears: No Acute Distress - Head Exam Head Exam: NORMAL INSPECTION - Eye Exam Eye Exam: PERRL - ENT Exam ENT Exam: Normal Oropharynx - Neck Exam Neck exam: Positive for: Normal Inspection - Respiratory Exam Respiratory Exam: Decreased Breath Sounds (at bases), Rhonchi (scattered), Wheezes - Cardiovascular Exam Cardiovascular Exam: REGULAR RHYTHM - GI/Abdominal Exam GI & Abdominal Exam: Normal Bowel Sounds, Soft - Extremities Exam Additional comments: Ecchymosis U/E - Back Exam Back exam: NORMAL INSPECTION - Neurological Exam Neurological exam: Alert, Oriented x3 Additional comments: No motor sensory deficit. - Psychiatric Exam Psychiatric exam: Normal Mood - Skin Skin Exam: Warm Additional comments: small macular areas R buttock Results - Vital Signs Recent Vital Signs: Last Vital Signs Temp 97.9 F 06/02/16 11:00 Pulse 101 H 06/02/16 11:34 Resp 18 06/02/16 11:34 BP 113/74 06/02/16 11:00 Pulse Ox 100 06/02/16 11:34 reviewed J.P. - Labs Result Diagrams: 06/04/16 04:45 06/03/16 07:20 Labs: reviewed J.P. - EKG Data EKG comments: reviewed J.P. - Imaging and Cardiology Chest x-ray Status: Report reviewed by me (William) CT scan - chest Status: Report reviewed by me (William) Assessment & Plan (1) COPD exacerbation Status: Acute Priority: High (2) Leukocytosis Status: Acute (3) RA (rheumatoid arthritis) Status: Chronic Priority: High (4) CAD (coronary artery disease) Status: Chronic Priority: Medium - Assessment and Plan (Free Text) Plan: Rocephin, Zithromax, Solumedrol and rest of Tx. Blood, Sputum and U C-S. PT eval , marked leukocytosis , Patient on steroid , CT Chest COPD , no PNA , f/u Sputum , Blood , Urine C-S , f/u ID consult. - Date & Time Date: 06/02/16 Time: 11:00
--- NOTE | 2016-06-02 16:11 | CARD ---
APPROVED REPORT EKG Measurement Heart [id number] <Conclusion> Sinus rhythm with premature atrial complexes Otherwise normal ECG
[2016-06-02] MEDS: methylPREDNISolone 60 MG in Sodium Chloride 0.9% 50 ML IVPB SCH (21:21)
[2016-06-02] MEDS ORDERED: Promethazine/Cod 6.25mg-10mg/5ml Syr UD PO PRN (22:52)
[2016-06-02] MEDS: guaiFENesin 600 mg ER Tab PO SCH (23:40)
[2016-06-03] MEDS: Albuterol-Ipratrop 3 mg / 0.5 (3 ml) UD INH SCH ×4 (00:39→11:32)
[2016-06-03 07:42] LABS: HEMATOCRIT 41.8 % (35.0-51.0); MEAN CORPUSCULAR HEMOGLOBIN 29.8 pg (27.0-31.0); MEAN CORPUSCULAR HGB CONC 32.6 g/dL (33.0-37.0); RED CELL DISTRIBUTION WIDTH 17.9 % (11.5-14.5); WHITE BLOOD COUNT 27.6 K/uL (4.8-10.8)
[2016-06-03 07:48] LABS: ALB/GLOB RATIO 1.2 (1.0-2.1); ALKALINE PHOSPHATASE 57 U/L (38-126); ALT/SGPT 59 U/L (21-72); AST/SGOT 23 U/L (17-59); BILIRUBIN,TOTAL 0.6 mg/dl (0.2-1.3); BLOOD UREA NITROGEN 29 mg/dl (9-20); CALCIUM 8.9 mg/dL (8.4-10.2); CARBON DIOXIDE 24 mmol/L (22-30); CHLORIDE 102 mmol/L (98-107); GFR AFRICAN-AMERICAN > 60; GLUCOSE,RANDOM 111 mg/dL (75-110); POTASSIUM 4.2 MMOL/L (3.6-5.0); SODIUM 139 mmol/l (132-148); TOTAL PROTEIN 5.9 G/DL (6.3-8.2)
[2016-06-03 07:59] LABS: MEAN CELL VOLUME 91.6 fl (80.0-94.0)
[2016-06-03] MEDS ORDERED: Patient's Own Med (Cholecalciferol (Vitamin D3) [Vitamin D3] 5,000 unit) PO SCH (09:00)
[2016-06-03] MEDS: Enoxaparin 40 mg Syringe SC SCH ×2 (10:22→10:30)
[2016-06-03] MEDS: guaiFENesin 600 mg ER Tab PO SCH ×2 (10:22→22:34)
--- NOTE | 2016-06-03 11:00 | CP.PCM.CON ---
History of Present Illness - History of Present Illness History of Present Illness: 70yo male complaining of shortness of breath at home for several days. No fever. Patient states he was discharged from this hospital 3 days ago. WBC elevated on steroids CXR clear await cultures - Medical History PMH: Anemia, Arthritis, CAD, COPD, Emphysema, HTN, Hypercholesterolemia, Rheumatoid Arthritis, Sleep Apnea Denies: HIV, Chronic Kidney Disease Past Patient History - Past Medical History & Family History Past Medical History?: Yes - Past Social History Smoking Status: Former Smoker Alcohol: None Drugs: Denies Home Situation {Lives}: Alone - CARDIAC Hx Cardiac Disorders: Yes Hx Hypercholesterolemia: Yes Hx Hypertension: Yes Other/Comment: CAD-Stent - PULMONARY Hx Respiratory Disorders: Yes Hx Chronic Obstructive Pulmonary Disease (COPD): Yes Hx Emphysema: Yes Hx Sleep Apnea: Yes - NEUROLOGICAL Hx Neurological Disorder: No - HEENT Hx HEENT Problems: No Hx Cataracts: (denies) - RENAL Hx Chronic Kidney Disease: No - ENDOCRINE/METABOLIC Hx Endocrine Disorders: No - HEMATOLOGICAL/ONCOLOGICAL Hx Blood Disorders: Yes Hx Anemia: Yes Hx Human Immunodeficiency Virus (HIV): No - INTEGUMENTARY Hx Dermatological Problems: No - MUSCULOSKELETAL/RHEUMATOLOGICAL Hx Musculoskeletal Disorders: Yes Hx Arthritis: Yes Hx Falls: No Hx Rheumatoid Arthritis: Yes - GASTROINTESTINAL Hx Gastrointestinal Disorders: No - GENITOURINARY/GYNECOLOGICAL Hx Genitourinary Disorders: No - PSYCHIATRIC Hx Psychophysiologic Disorder: No Hx Substance Use: No - SURGICAL HISTORY Hx Surgeries: Yes Hx Coronary Stent: Yes (x 1 done 2 mos ago) - ANESTHESIA Hx Anesthesia: Yes Hx Anesthesia Reactions: No Hx Malignant Hyperthermia: No Has any member of the family had a problem w/ anesthesia?: No Meds Allergies/Adverse Reactions: Allergies Allergy/AdvReac Type Severity Reaction Status Date / Time No Known Allergies Allergy Verified 06/02/16 06:53 - Medications Medications: Current Medications Albuterol/Ipratropium (Duoneb 3 Mg/0.5 Mg (3 Ml) Ud) 3 ml INH RQ4 [facility] Last Admin: 06/03/16 07:30 Dose: 3 ml Aspirin (Ecotrin) 81 mg PO DAILY [facility] Last Admin: 06/03/16 10:21 Dose: 81 mg Atorvastatin Calcium (Lipitor) 40 mg PO HS [facility] Last Admin: 06/02/16 23:40 Dose: 40 mg Cholecalciferol (Vitamin D) 5,000 iu PO DAILY [facility] Last Admin: 06/03/16 10:24 Dose: 5,000 iu Enoxaparin Sodium (Lovenox) 40 mg SC DAILY [facility] PRN Reason: Protocol Last Admin: 06/03/16 10:30 Dose: Not Given Fluconazole (Diflucan) 100 mg PO DAILY [facility] Last Admin: 06/03/16 10:21 Dose: 100 mg Folic Acid (Folic Acid) 1 mg PO DAILY [facility] Last Admin: 06/03/16 10:22 Dose: 1 mg Furosemide (Lasix) 40 mg PO DAILY [facility] Guaifenesin (Mucinex La) 600 mg PO Q12 [facility] Last Admin: 06/03/16 10:22 Dose: 600 mg Hydroxychloroquine Sulfate (Plaquenil) 400 mg PO DAILY [facility] Ceftriaxone Sodium 1 gm/ (Sodium Chloride) 100 mls @ 100 mls/hr IVPB DAILY [facility] Last Admin: 06/03/16 10:23 Dose: 100 mls/hr Azithromycin 500 mg/ Sodium (Chloride) 250 mls @ 250 mls/hr IVPB DAILY [facility] Methylprednisolone 60 mg/ (Sodium Chloride) 50.96 mls @ 100 mls/hr IVPB Q12 [facility] Last Admin: 06/02/16 21:21 Dose: 100 mls/hr Methotrexate (Methotrexate) 15 mg PO QWK [facility] PRN Reason: Protocol Promethazine HCl/Codeine (Phenergan/Codeine Oral Syrup) 10 ml PO Q6 PRN PRN Reason: Cough Tamsulosin HCl (Flomax) 0.4 mg PO [facility] Last Admin: 06/02/16 23:40 Dose: 0.4 mg Zolpidem Tartrate (Ambien) 10 mg PO HS [facility] Last Admin: 06/02/16 23:21 Dose: 10 mg Results - Vital Signs Recent Vital Signs: Last Vital Signs Temp 97.6 F 06/03/16 08:00 Pulse 83 06/03/16 08:00 Resp 18 06/03/16 08:00 BP 104/67 06/03/16 08:00 Pulse Ox 97 06/03/16 08:00 - Labs Result Diagrams: 06/03/16 07:20 06/03/16 07:20 Labs: Laboratory Results - last 24 hr 06/03/16 06/03/16 07:20 09:57 WBC 27.6 H RBC 4.57 Hgb 13.6 Hct 41.8 MCV 91.6 D MCH 29.8 MCHC 32.6 L RDW 17.9 H Plt Count 296 ESR 10 Sodium 139 Potassium 4.2 Chloride 102 Carbon Dioxide 24 Anion Gap 18 BUN 29 H Creatinine 0.7 L Est GFR ( Amer) > 60 Est GFR (Non-Af Amer) > 60 Random Glucose 111 H Calcium 8.9 Total Bilirubin 0.6 AST 23 ALT 59 Alkaline Phosphatase 57 Total Protein 5.9 L Albumin 3.2 L Globulin 2.7 Albumin/Globulin Ratio 1.2
[2016-06-03] MEDS: Azithromycin 500 MG in Sodium Chloride 0.9% 250 ML IVPB SCH (11:19)
[2016-06-03] MEDS: methylPREDNISolone 60 MG in Sodium Chloride 0.9% 50 ML IVPB SCH ×2 (13:42→22:35)
[2016-06-03] MEDS: Levalbuterol 0.63 MG/3 ML Inhal Soln UD INH SCH ×2 (15:40→23:45)
--- NOTE | 2016-06-03 17:00 | CP.PCM.PN ---
Subjective - Date & Time of Evaluation Date of Evaluation: 06/03/16 Time of Evaluation: 11:00 - Subjective Subjective: F/U COPD Exarcebation. Dry cough, breathing better, less chest congestion. Objective - Vital Signs/Intake and Output Vital Signs (last 24 hours): Temp Pulse Resp BP Pulse Ox 97.5 F L 82 20 114/69 96 06/03/16 15:55 06/03/16 15:55 06/03/16 15:55 06/03/16 15:55 06/03/16 15:55 - Medications Medications: Current Medications Aspirin (Ecotrin) 81 mg PO DAILY [facility] Last Admin: 06/03/16 10:21 Dose: 81 mg Atorvastatin Calcium (Lipitor) 40 mg PO HS [facility] Last Admin: 06/02/16 23:40 Dose: 40 mg Cholecalciferol (Vitamin D) 5,000 iu PO DAILY [facility] Last Admin: 06/03/16 10:24 Dose: 5,000 iu Fluconazole (Diflucan) 100 mg PO DAILY [facility] Last Admin: 06/03/16 10:21 Dose: 100 mg Folic Acid (Folic Acid) 1 mg PO DAILY [facility] Last Admin: 06/03/16 10:22 Dose: 1 mg Furosemide (Lasix) 40 mg PO DAILY [facility] Guaifenesin (Mucinex La) 600 mg PO Q12 [facility] Last Admin: 06/03/16 10:22 Dose: 600 mg Hydroxychloroquine Sulfate (Plaquenil) 400 mg PO DAILY [facility] Last Admin: 06/03/16 11:19 Dose: 400 mg Ceftriaxone Sodium 1 gm/ (Sodium Chloride) 100 mls @ 100 mls/hr IVPB DAILY [facility] Last Admin: 06/03/16 10:23 Dose: 100 mls/hr Azithromycin 500 mg/ Sodium (Chloride) 250 mls @ 250 mls/hr IVPB DAILY [facility] Last Admin: 06/03/16 11:19 Dose: 250 mls/hr Methylprednisolone 60 mg/ (Sodium Chloride) 50.96 mls @ 100 mls/hr IVPB Q12 [facility] Last Admin: 06/03/16 13:42 Dose: 100 mls/hr Levalbuterol HCl (Xopenex) 0.63 mg INH RQ8 [facility] Last Admin: 06/03/16 15:40 Dose: 0.63 mg Methotrexate (Methotrexate) 15 mg PO QWK [facility] PRN Reason: Protocol Promethazine HCl/Codeine (Phenergan/Codeine Oral Syrup) 10 ml PO Q6 PRN PRN Reason: Cough Tamsulosin HCl (Flomax) 0.4 mg PO [facility] Last Admin: 06/02/16 23:40 Dose: 0.4 mg Zolpidem Tartrate (Ambien) 10 mg PO [facility] Last Admin: 06/02/16 23:21 Dose: 10 mg - Constitutional Appears: No Acute Distress - Head Exam Head Exam: NORMAL INSPECTION - Eye Exam Eye Exam: PERRL - ENT Exam ENT Exam: Normal Exam - Neck Exam Neck Exam: Normal Inspection - Respiratory Exam Respiratory Exam: Decreased Breath Sounds (at bases), Rhonchi (scattered) - Cardiovascular Exam Cardiovascular Exam: REGULAR RHYTHM - GI/Abdominal Exam GI & Abdominal Exam: Soft, Normal Bowel Sounds - Extremities Exam Additional comments: Ecchymosis upper extremities - Back Exam Back Exam: NORMAL INSPECTION - Neurological Exam Neurological Exam: Alert, Oriented x3. absent: Motor Sensory Deficit - Psychiatric Exam Psychiatric exam: Normal Mood - Skin Skin Exam: Warm Additional comments: Small macular areas R buttock. Assessment and Plan (1) COPD exacerbation Status: Acute (2) Leukocytosis Status: Acute (3) RA (rheumatoid arthritis) Status: Chronic (4) CAD (coronary artery disease) Status: Chronic - Assessment and Plan (Free Text) Plan: Continue Solumedrol, DC Duoneb, start Xopenex, Methrotrexate. and rest of Tx.
--- NOTE | 2016-06-04 00:29 | DS ---
This is a 70-year-old male admitted to [facility] on 06/02/2016 with a chief co mplaint of shortness of breath, weakness, malaise, fatigue, cough. The patient was being treated as an outpatient without response. The patient has history of severe COPD and has been on broad spectru m antibiotic therapy in the past. Also has history of recurrent skin and soft tissue infections as we ll as urinary tract infections. The patient suffers from severe COPD. PAST MEDICAL HISTORY: Positive for COPD, hypertension, atherosclerotic heart disease, osteoarthritis . SOCIAL HISTORY: Ex-smoker, nondrinker and no family history. The patient was taking oral therapy as an outpatient, but failed to improve. Came to the Emergency Room, was found to have severe leukocytos is of 23,000 with left shift. Required admission for possible SIRS. Admitted to telemetry floor. PAST MEDICAL HISTORY: Atherosclerotic heart disease, COPD. FAMILY HISTORY: Noncontributory. ALLERGIES: No known allergies to medications. REVIEW OF SYSTEMS: Denies headache, earache, toothache, visual disturbances, weight loss. Positive cough, shortness of breath, fatigue, malaise. No recent travel, no pets, no exposure to toxins or ch emicals. FAMILY HISTORY: Noncontributory. Positive for hypertension. MEDICATIONS: Reviewed and include Zosyn 3.375 grams q. 8 hours. PHYSICAL EXAMINATION: GENERAL: Reveals a chronically ill male, awake, alert, responsive. VITAL SIGNS: Temperature 98, BP 130/70, pulse 76, respiratory rate 18. HEENT: Head: Normocephalic, atraumatic. Eyes: Pupils reactive. Sclerae nonicteric. Extraocular motions intact. NECK: No rigidity, no thyromegaly. Mouth pharynx not injected. Tongue midline. No thrush. CHEST: Symmetrical expansion. Bilateral air entry. Rhonchi bilaterally. HEART: S1, S2. No murmurs, rubs, or gallops. ABDOMEN: Obese, soft, bowel sounds present. No rebound or guarding. No masses. RECTAL: Deferred. EXTREMITIES: Revealed bilateral edema 2+ bilaterally. NEUROLOGIC: Cranial nerves II-XII intact. SENSORY: Intact. NEUROLOGICAL: Generalized weakness noted. LABORATORY DATA: Reviewed, ____ Chest x-ray and CT chest, both negative for infiltrates. IMPRESSION: 1. Leukocytosis, possibly reactive, possibly secondary to steroids. 2. Acute exacerbation of chronic obstructive pulmonary disease. PLAN: Will continue current IV antibiotic therapy pending results of cultures. We will follow with you and add further recommendations. Reginald Rondon MD cc: [id number] TT: 06/04/2016 00:29:03 jn
[2016-06-04 06:48] LABS: HEMATOCRIT 42.5 % (35.0-51.0); MEAN CELL VOLUME 90.2 fl (80.0-94.0); MEAN CORPUSCULAR HEMOGLOBIN 29.9 pg (27.0-31.0); MEAN CORPUSCULAR HGB CONC 33.1 g/dL (33.0-37.0); RED CELL DISTRIBUTION WIDTH 18.3 % (11.5-14.5); WHITE BLOOD COUNT 25.9 K/uL (4.8-10.8)
[2016-06-04] MEDS: Levalbuterol 0.63 MG/3 ML Inhal Soln UD INH SCH ×2 (07:45→15:12)
[2016-06-04] MEDS: Azithromycin 500 MG in Sodium Chloride 0.9% 250 ML IVPB SCH (09:00)
[2016-06-04] MEDS: guaiFENesin 600 mg ER Tab PO SCH ×2 (09:44→21:15)
[2016-06-04] MEDS: methylPREDNISolone 60 MG in Sodium Chloride 0.9% 50 ML IVPB SCH ×2 (10:00→21:21)
--- NOTE | 2016-06-04 13:28 | CP.PCM.PN ---
Subjective - Date & Time of Evaluation Date of Evaluation: 06/04/16 Time of Evaluation: 10:30 - Subjective Subjective: F/U COPD Exacerbation. Cough improved, breathing better. Objective - Vital Signs/Intake and Output Vital Signs (last 24 hours): Temp Pulse Resp BP Pulse Ox 97.4 F L 71 20 126/85 100 06/04/16 12:00 06/04/16 12:00 06/04/16 12:00 06/04/16 12:00 06/04/16 12:00 - Medications Medications: Current Medications Aspirin (Ecotrin) 81 mg PO DAILY [facility] Last Admin: 06/04/16 09:49 Dose: 81 mg Atorvastatin Calcium (Lipitor) 40 mg PO HS [facility] Last Admin: 06/03/16 22:34 Dose: 40 mg Cholecalciferol (Vitamin D) 5,000 iu PO DAILY [facility] Last Admin: 06/04/16 09:49 Dose: 5,000 iu Fluconazole (Diflucan) 100 mg PO DAILY [facility] Last Admin: 06/04/16 09:49 Dose: 100 mg Folic Acid (Folic Acid) 1 mg PO DAILY [facility] Last Admin: 06/04/16 09:45 Dose: 1 mg Furosemide (Lasix) 40 mg PO DAILY [facility] Last Admin: 06/04/16 09:00 Dose: 40 mg Guaifenesin (Mucinex La) 600 mg PO Q12 [facility] Last Admin: 06/04/16 09:44 Dose: 600 mg Home Med (Patient's Own Medication) 50 unit AD CHARLINE [facility] Hydroxychloroquine Sulfate (Plaquenil) 400 mg PO DAILY [facility] Last Admin: 06/04/16 09:50 Dose: 400 mg Ceftriaxone Sodium 1 gm/ (Sodium Chloride) 100 mls @ 100 mls/hr IVPB DAILY [facility] Last Admin: 06/04/16 09:00 Dose: 100 mls/hr Azithromycin 500 mg/ Sodium (Chloride) 250 mls @ 250 mls/hr IVPB DAILY [facility] Last Admin: 06/04/16 09:00 Dose: 250 mls/hr Methylprednisolone 60 mg/ (Sodium Chloride) 50.96 mls @ 100 mls/hr IVPB Q12 [facility] Last Admin: 06/03/16 22:35 Dose: 100 mls/hr Levalbuterol HCl (Xopenex) 0.63 mg INH RQ8 [facility] Last Admin: 06/04/16 07:45 Dose: 0.63 mg Methotrexate (Methotrexate) 15 mg PO QWK [facility] PRN Reason: Protocol Promethazine HCl/Codeine (Phenergan/Codeine Oral Syrup) 10 ml PO Q6 PRN PRN Reason: Cough Tamsulosin HCl (Flomax) 0.4 mg PO [facility] Last Admin: 06/03/16 22:34 Dose: 0.4 mg Zolpidem Tartrate (Ambien) 10 mg PO [facility] Last Admin: 06/03/16 22:34 Dose: 10 mg - Labs Labs: 06/04/16 04:45 - Constitutional Appears: No Acute Distress - Head Exam Head Exam: NORMAL INSPECTION - Eye Exam Eye Exam: PERRL - ENT Exam ENT Exam: Mucous Membranes Moist - Neck Exam Neck Exam: Normal Inspection - Respiratory Exam Respiratory Exam: Decreased Breath Sounds (at bases), Rhonchi (scattered) - Cardiovascular Exam Cardiovascular Exam: REGULAR RHYTHM - GI/Abdominal Exam GI & Abdominal Exam: Soft, Normal Bowel Sounds - Extremities Exam Additional comments: Ecchymosis upper extremities. - Back Exam Back Exam: NORMAL INSPECTION - Neurological Exam Neurological Exam: Alert, Oriented x3. absent: Motor Sensory Deficit - Psychiatric Exam Psychiatric exam: Normal Mood - Skin Skin Exam: Warm Additional comments: Small macular areas buttocks Assessment and Plan (1) COPD exacerbation Status: Acute (2) Leukocytosis Status: Acute (3) RA (rheumatoid arthritis) Status: Chronic (4) CAD (coronary artery disease) Status: Chronic - Assessment and Plan (Free Text) Plan: Continue Zithromax, Rocephin, Solumedrol, Mucinex and rest of Tx.
--- NOTE | 2016-06-04 17:26 | CP.PCM.PN ---
Subjective - Date & Time of Evaluation Date of Evaluation: 06/04/16 Time of Evaluation: 08:00 - Subjective Subjective: improving wbc noted rx in progress Objective - Vital Signs/Intake and Output Vital Signs (last 24 hours): Temp Pulse Resp BP Pulse Ox 98.5 F 73 20 131/90 97 06/04/16 15:55 06/04/16 15:55 06/04/16 15:55 06/04/16 15:55 06/04/16 15:55 - Medications Medications: Current Medications Aspirin (Ecotrin) 81 mg PO DAILY [facility] Last Admin: 06/04/16 09:49 Dose: 81 mg Atorvastatin Calcium (Lipitor) 40 mg PO HS [facility] Last Admin: 06/03/16 22:34 Dose: 40 mg Cholecalciferol (Vitamin D) 5,000 iu PO DAILY [facility] Last Admin: 06/04/16 09:49 Dose: 5,000 iu Fluconazole (Diflucan) 100 mg PO DAILY [facility] Last Admin: 06/04/16 09:49 Dose: 100 mg Folic Acid (Folic Acid) 1 mg PO DAILY [facility] Last Admin: 06/04/16 09:45 Dose: 1 mg Furosemide (Lasix) 40 mg PO DAILY [facility] Last Admin: 06/04/16 09:00 Dose: 40 mg Guaifenesin (Mucinex La) 600 mg PO Q12 [facility] Last Admin: 06/04/16 09:44 Dose: 600 mg Home Med (Patient's Own Medication) 50 unit AD CHARLINE [facility] Hydroxychloroquine Sulfate (Plaquenil) 400 mg PO DAILY [facility] Last Admin: 06/04/16 09:50 Dose: 400 mg Ceftriaxone Sodium 1 gm/ (Sodium Chloride) 100 mls @ 100 mls/hr IVPB DAILY [facility] Last Admin: 06/04/16 09:00 Dose: 100 mls/hr Azithromycin 500 mg/ Sodium (Chloride) 250 mls @ 250 mls/hr IVPB DAILY [facility] Last Admin: 06/04/16 09:00 Dose: 250 mls/hr Methylprednisolone 60 mg/ (Sodium Chloride) 50.96 mls @ 100 mls/hr IVPB Q12 [facility] Last Admin: 06/04/16 10:00 Dose: 100 mls/hr Levalbuterol HCl (Xopenex) 0.63 mg INH RQ8 [facility] Last Admin: 06/04/16 15:12 Dose: 0.63 mg Methotrexate (Methotrexate) 15 mg PO QWK [facility] PRN Reason: Protocol Promethazine HCl/Codeine (Phenergan/Codeine Oral Syrup) 10 ml PO Q6 PRN PRN Reason: Cough Tamsulosin HCl (Flomax) 0.4 mg PO HS [facility] Last Admin: 06/03/16 22:34 Dose: 0.4 mg Zolpidem Tartrate (Ambien) 10 mg PO [facility] Last Admin: 06/03/16 22:34 Dose: 10 mg - Labs Labs: 06/04/16 04:45 - Constitutional Appears: Non-toxic, Chronically Ill - Head Exam Head Exam: NORMOCEPHALIC - Eye Exam Eye Exam: PERRL. absent: Scleral icterus - ENT Exam ENT Exam: Mucous Membranes Dry - Neck Exam Neck Exam: absent: Lymphadenopathy - Respiratory Exam Respiratory Exam: Decreased Breath Sounds - Cardiovascular Exam Cardiovascular Exam: REGULAR RHYTHM - GI/Abdominal Exam GI & Abdominal Exam: Distended, Soft - Rectal Exam Rectal Exam: Deferred - Exam Exam: NORMAL INSPECTION Assessment and Plan - Assessment and Plan (Free Text) Plan: exac copd multiple comorbididties may need FOB
[2016-06-05] MEDS: Levalbuterol 0.63 MG/3 ML Inhal Soln UD INH SCH ×3 (00:53→15:22)
[2016-06-05 05:34] VITALS: RESP 20
[2016-06-05] MEDS: guaiFENesin 600 mg ER Tab PO SCH ×2 (08:58→21:02)
[2016-06-05] MEDS: Azithromycin 500 MG in Sodium Chloride 0.9% 250 ML IVPB SCH (08:59)
--- NOTE | 2016-06-05 12:33 | CP.PCM.PN ---
Subjective - Date & Time of Evaluation Date of Evaluation: 06/05/16 Time of Evaluation: 11:40 - Subjective Subjective: F/U COPD Exacerbation. Cough improved, no SOB, no chest congestion Objective - Vital Signs/Intake and Output Vital Signs (last 24 hours): Temp Pulse Resp BP Pulse Ox 97.5 F L 59 L 20 130/71 99 06/05/16 09:00 06/05/16 09:00 06/05/16 09:00 06/05/16 09:00 06/05/16 09:00 - Medications Medications: Current Medications Aspirin (Ecotrin) 81 mg PO DAILY [facility] Last Admin: 06/05/16 08:58 Dose: 81 mg Atorvastatin Calcium (Lipitor) 40 mg PO HS [facility] Last Admin: 06/04/16 21:15 Dose: 40 mg Cholecalciferol (Vitamin D) 5,000 iu PO DAILY [facility] Last Admin: 06/05/16 08:59 Dose: 5,000 iu Fluconazole (Diflucan) 100 mg PO DAILY [facility] Last Admin: 06/05/16 08:58 Dose: 100 mg Folic Acid (Folic Acid) 1 mg PO DAILY [facility] Last Admin: 06/05/16 08:59 Dose: 1 mg Furosemide (Lasix) 40 mg PO DAILY [facility] Last Admin: 06/05/16 08:59 Dose: 40 mg Guaifenesin (Mucinex La) 600 mg PO Q12 [facility] Last Admin: 06/05/16 08:58 Dose: 600 mg Home Med (Patient's Own Medication) 50 unit AD CHARLINE [facility] Hydroxychloroquine Sulfate (Plaquenil) 400 mg PO DAILY [facility] Last Admin: 06/05/16 08:58 Dose: 400 mg Ceftriaxone Sodium 1 gm/ (Sodium Chloride) 100 mls @ 100 mls/hr IVPB DAILY [facility] Last Admin: 06/05/16 09:00 Dose: 100 mls/hr Azithromycin 500 mg/ Sodium (Chloride) 250 mls @ 250 mls/hr IVPB DAILY [facility] Last Admin: 06/05/16 08:59 Dose: 250 mls/hr Methylprednisolone 60 mg/ (Sodium Chloride) 50.96 mls @ 100 mls/hr IVPB Q12 [facility] Last Admin: 06/04/16 21:21 Dose: 100 mls/hr Levalbuterol HCl (Xopenex) 0.63 mg INH RQ8 [facility] Last Admin: 06/05/16 07:38 Dose: 0.63 mg Methotrexate (Methotrexate) 15 mg PO QWK [facility] PRN Reason: Protocol Promethazine HCl/Codeine (Phenergan/Codeine Oral Syrup) 10 ml PO Q6 PRN PRN Reason: Cough Tamsulosin HCl (Flomax) 0.4 mg PO HS [facility] Last Admin: 06/04/16 21:15 Dose: 0.4 mg Zolpidem Tartrate (Ambien) 10 mg PO HS [facility] Last Admin: 06/04/16 22:30 Dose: 10 mg - Labs Labs: 06/04/16 04:45 - Constitutional Appears: No Acute Distress - Head Exam Head Exam: NORMAL INSPECTION - Eye Exam Eye Exam: PERRL - ENT Exam ENT Exam: Normal Oropharynx - Neck Exam Neck Exam: Normal Inspection - Respiratory Exam Respiratory Exam: Decreased Breath Sounds (at bases), Rhonchi (scattered) - Cardiovascular Exam Cardiovascular Exam: REGULAR RHYTHM - GI/Abdominal Exam GI & Abdominal Exam: Soft, Normal Bowel Sounds - Extremities Exam Additional comments: Ecchymosis upper extremities - Back Exam Back Exam: NORMAL INSPECTION - Neurological Exam Neurological Exam: Alert, Oriented x3. absent: Motor Sensory Deficit - Psychiatric Exam Psychiatric exam: Normal Mood - Skin Skin Exam: Warm Additional comments: Small macular areas buttocks Assessment and Plan (1) COPD exacerbation Status: Acute (2) Leukocytosis Status: Acute (3) RA (rheumatoid arthritis) Status: Chronic (4) CAD (coronary artery disease) Status: Chronic - Assessment and Plan (Free Text) Plan: COPD Exacerbaton improved, Pt is stable to be transferred to TCU , I will follow Pt in this Facility
[2016-06-05] MEDS: ENBREL SC SCH ×2 (14:17→16:34)
[2016-06-05] MEDS: methylPREDNISolone 60 MG in Sodium Chloride 0.9% 50 ML IVPB SCH ×2 (14:18→20:36)
[2016-06-05 20:02] VITALS: BP 116/80; PULSE 67; TEMP 98.5; O2SAT 95
--- NOTE | 2016-06-06 08:22 | PQF GENQUE ---
Dr. Son ER Physician Documentation Report documents SIRS. After study was pt admitted and treated for a diagnosis of SIRS? This form is a permanent part of the medical record Clarification of your documentation is requested to better reflect the severity of illness and intensity of treatment of your patient. Indicators present [] Specify: [] [] Specify: [] [] Specify: [] [] Specify: [] Location in the medical record that reflects the above clinical findings: [X] ER Physician Documentation Report Treatment Provided: [] PHYSICIAN'S RESPONSE Based on your medical judgment of the clinical indicators outlined above please clarify the following: [] Practitioner response [] If unable to determine, please check the box, sign and date. Present On Admission (POA) Indicator: [] Present at the time of admission [] Not present at the time of admission [] Clinically Undetermined In responding to this query, please exercise your independent professional judgment. The fact that a question is asked does not imply that any particular answer is desired or expected. Thank you for your clarification on this documentation. If you have any questions please call:[ ] * Thank you, [ ]Pura Mathur senior communications engineer [facility]
[2016-06-06 13:58] LABS: ALKALINE PHOSPHATASE 51 U/L (40-115)
[2016-06-07 21:53] LABS: INTESTINAL ISOENZYME 0 % (1-24); MACROHEPATIC ISOENZYME 0 % (<=0); PLACENTAL ISOENZYME 0 % (<=0)
--- NOTE | 2016-06-12 10:35 | CP.PCM.DIS ---
Provider - Provider Date of Admission: 06/03/16 11:46 Attending physician: Kareem Son MD Consults: ID and Wound Care. Time Spent in preparation of Discharge (in minutes): 25 Diagnosis - Discharge Diagnosis (1) COPD exacerbation Status: Acute Priority: High (2) RA (rheumatoid arthritis) Status: Chronic Priority: High (3) CAD (coronary artery disease) Status: Chronic Priority: Medium (4) Leukocytosis Status: Acute Hospital Course - Lab Results Lab Results: Micro Results 06/04/16 05:00 Sputum Gram Stain - Final 06/04/16 05:00 Sputum Sputum Culture - Preliminary 06/03/16 13:14 Sputum Gram Stain - Final 06/03/16 13:14 Sputum Sputum Culture - Final Most Recent Lab Values WBC 25.9 K/uL (4.8-10.8) H 06/04/16 04:45 RBC 4.71 Mil/uL (4.40-5.90) 06/04/16 04:45 Hgb 14.1 g/dL (12.0-18.0) 06/04/16 04:45 Hct 42.5 % (35.0-51.0) 06/04/16 04:45 MCV 90.2 fl (80.0-94.0) 06/04/16 04:45 MCH 29.9 pg (27.0-31.0) 06/04/16 04:45 MCHC 33.1 g/dL (33.0-37.0) 06/04/16 04:45 RDW 18.3 % (11.5-14.5) H 06/04/16 04:45 Plt Count 299 K/uL (130-400) 06/04/16 04:45 MPV 9.2 fl (7.2-11.7) 06/02/16 07:44 Neut % (Auto) 78.7 % (50.0-75.0) H 06/02/16 07:44 Lymph % (Auto) 13.8 % (20.0-40.0) L 06/02/16 07:44 [place] % (Auto) 7.0 % (0.0-10.0) 06/02/16 07:44 Eos % (Auto) 0.3 % (0.0-4.0) 06/02/16 07:44 Baso % (Auto) 0.2 % (0.0-2.0) 06/02/16 07:44 Neut # 21.5 K/uL (1.8-7.0) H 06/02/16 07:44 Lymph # 3.8 K/uL (1.0-4.3) 06/02/16 07:44 [place] # 1.9 K/uL (0.0-0.8) H 06/02/16 07:44 Eos # 0.1 K/uL (0.0-0.7) 06/02/16 07:44 Baso # 0.1 K/uL (0.0-0.2) 06/02/16 07:44 ESR 10 mm/hr (0-20) 06/03/16 09:57 pO2 39 mm/Hg (30-55) 06/02/16 07:42 VBG pH 7.52 (7.32-7.43) H 06/02/16 07:42 VBG pCO2 36 mmHg (40-60) L 06/02/16 07:42 VBG HCO3 29.5 mmol/L 06/02/16 07:42 VBG Total CO2 30.5 mmol/L (22-28) H 06/02/16 07:42 VBG O2 Sat (Calc) 82.5 % (40-65) H 06/02/16 07:42 VBG Base Excess 6.4 mmol/L (0.0-2.0) H 06/02/16 07:42 VBG Potassium 4.1 mmol/L (3.6-5.2) 06/02/16 07:42 A-a O2 Difference 66.0 mm/Hg 06/02/16 07:42 Sodium 135.0 mmol/L (132-148) 06/02/16 07:42 Chloride 102.0 mmol/L (98-107) 06/02/16 07:42 Glucose 81 mg/dL (75-110) 06/02/16 07:42 Lactate 2.1 mmol/L (0.7-2.1) 06/02/16 07:42 FiO2 21.0 % 06/02/16 07:42 Crit Value Called To Gloria samuel 06/02/16 07:42 Crit Value Called By 15 06/02/16 07:42 Crit Value Read Back Y 06/02/16 07:42 Blood Gas Notified Time 745 06/02/16 07:42 Sodium 139 mmol/l (132-148) 06/03/16 07:20 Potassium 4.2 MMOL/L (3.6-5.0) 06/03/16 07:20 Chloride 102 mmol/L (98-107) 06/03/16 07:20 Carbon Dioxide 24 mmol/L (22-30) 06/03/16 07:20 Anion Gap 18 (10-20) 06/03/16 07:20 BUN 29 mg/dl (9-20) H 06/03/16 07:20 Creatinine 0.7 mg/dL (0.8-1.5) L 06/03/16 07:20 Est GFR ( Amer) > 60 06/03/16 07:20 Est GFR (Non-Af Amer) > 60 06/03/16 07:20 Random Glucose 111 mg/dL (75-110) H 06/03/16 07:20 Calcium 8.9 mg/dL (8.4-10.2) 06/03/16 07:20 Total Bilirubin 0.6 mg/dl (0.2-1.3) 06/03/16 07:20 AST 23 U/L (17-59) 06/03/16 07:20 ALT 59 U/L (21-72) 06/03/16 07:20 Alkaline Phosphatase 51 U/L (40-115) 06/04/16 12:00 Alk Phos Iso-Intestine 0 % (1-24) L 06/04/16 12:00 Alk Phos Iso-Bone 47 % (28-66) 06/04/16 12:00 Alk Phos Iso-Liver 53 % (25-69) 06/04/16 12:00 Alk Phos Iso-Placenta 0 % (<=0) 06/04/16 12:00 Alk Phos Iso-Renal 0 % (<=0) 06/04/16 12:00 C-React Prot High Sens 1.95 mg/L (1.00-3.00) 06/03/16 09:59 Total Protein 5.9 G/DL (6.3-8.2) L 06/03/16 07:20 Albumin 3.2 g/dL (3.5-5.0) L 06/03/16 07:20 Globulin 2.7 gm/dL (2.2-3.9) 06/03/16 07:20 Albumin/Globulin Ratio 1.2 (1.0-2.1) 06/03/16 07:20 Venous Blood Potassium 4.1 mmol/L (3.6-5.2) 06/02/16 07:42 IgE 15 kU/L (<yx=943) 06/03/16 13:14 Rheum Arthritis Panel Negative (NEGATIVE) 06/03/16 13:14 - Date & Time of H&P Date of H&P: 06/02/16 Time of H&P: 11:00 Discharge Exam - Head Exam Head Exam: NORMAL INSPECTION Discharge Plan - Discharge Medications Prescriptions: RX: Methotrexate 15 mg PO QWK #30 tab Hydroxychloroquine Sulfate [Plaquenil] 400 mg PO DAILY #30 tablet - Follow Up Plan Condition: FAIR Disposition: TRANSF TO SNF
== END 2016-06-05 21:15 | DRG 192 ==
LOC: H.ER 06:20 → H.ERHOLD 08:03 → H.TEL 10:46 → OBSVTOIN 06-03 11:46
PROVIDERS: ADMIT Internal Medicine Pulmonary Disease; ATTEND Internal Medicine Pulmonary Disease
DX: J44.1 Chronic obstructive pulmonary disease with (acute) exacerbation (principal); M06.9 Rheumatoid arthritis, unspecified; I10 Essential (primary) hypertension; G47.33 Obstructive sleep apnea (adult) (pediatric); D72.829 Elevated white blood cell count, unspecified; B35.1 Tinea unguium; E78.00 Pure hypercholesterolemia, unspecified; I25.10 Atherosclerotic heart disease of native coronary artery without angina pectoris; Z95.5 Presence of coronary angioplasty implant and graft; Z87.891 Personal history of nicotine dependence

== ENCOUNTER 2016-06-30 09:46 | Emergency (ER) | payer MEDICARE, MEDICAID ==
[2016-06-30 09:46] VITALS: BMI 30.7
[2016-06-30] MEDS ORDERED: Albuterol-Ipratrop 3 mg / 0.5 (3 ml) UD INH STA ×3 (10:12→16:09)
[2016-06-30 10:15] VITALS: TEMP 98.5
--- NOTE | 2016-06-30 10:37 | ED PDOC ---
HPI: SOB/CHF/COPD Time Seen by Provider: 06/30/16 09:51 Chief Complaint (Nursing): Shortness Of Breath Chief Complaint (Provider): dyspnea History Per: Patient History/Exam Limitations: no limitations Additional Complaint(s): 70yo male Hx COPD sent from outpatient physical therapy office for dyspnea. BLS states he also had irregularly irregular pulse and mild tachycardia in the field. Patient complains of dyspnea, chest tightness. Hx cardiac cath w/ stent in 02/2016. Past Medical History Reviewed: Historical Data, Nursing Documentation, Vital Signs Vital Signs: Last Vital Signs Temp 98.5 F 06/30/16 10:03 Pulse 75 06/30/16 15:31 Resp 18 06/30/16 15:31 BP 110/77 06/30/16 15:31 Pulse Ox 95 06/30/16 15:31 - Medical History PMH: Anemia, Arthritis, CAD, COPD, Emphysema, HTN, Hypercholesterolemia, Rheumatoid Arthritis, Sleep Apnea Denies: HIV, Chronic Kidney Disease Other PMH: sleep apnea - Surgical History Surgical History: Coronary Stent (x 1 done 2 mos ago) - Family History Family History: States: [place] - Social History Current smoker - smoking cessation education provided: No Ex-Smoker (has not smoked in the last 12 months): Yes (5 year ago) - Home Medications Home Medications: Ambulatory Orders Medication Instructions Recorded Folic Acid 1 mg PO DAILY 01/09/16 Metoprolol Succinate [Toprol XL] 50 mg PO DAILY 01/09/16 Tamsulosin [Flomax] 0.4 mg PO HS 01/09/16 Aspirin [Ecotrin] 81 mg PO DAILY 02/19/16 Atorvastatin [Lipitor] 40 mg PO HS 04/21/16 Cholecalciferol (Vitamin D3) 5,000 unit PO DAILY 04/21/16 [Vitamin D3] Furosemide [Lasix] 40 mg PO DAILY 04/21/16 Promethazine/Codeine 10 ml PO Q6 PRN #0 udc 04/24/16 [Phenergan/Codeine Oral Syrup] guaiFENesin [Mucinex LA] 600 mg PO Q12 30 Days 05/03/16 Fluconazole [Diflucan] 100 mg PO DAILY 05/29/16 Fluticasone/Salmeterol 500/50 1 puff IH Q12 05/29/16 [Advair Diskus 500/50] Hydroxychloroquine Sulfate 400 mg PO DAILY #30 tablet 06/05/16 [Plaquenil] Methotrexate 15 mg PO QWK #30 tab 06/05/16 Prednisone [Prednisone] 5 mg PO DAILY 06/10/16 Albuterol 0.083% [Albuterol 0.083% 2.5 mg IH Q4 PRN #20 neb 06/30/16 Inhal Maddy (2.5 mg/3 ml) UD] Prednisone 50 mg PO DAILY #4 tab 06/30/16 - Allergies Allergies/Adverse Reactions: Allergies Allergy/AdvReac Type Severity Reaction Status Date / Time No Known Allergies Allergy Verified 06/30/16 09:55 Review of Systems ROS Statement: Except As Marked, All Systems Reviewed And Found Negative Cardiovascular: Positive for: Chest Pain Respiratory: Positive for: Shortness of Breath Physical Exam - Reviewed Nursing Documentation Reviewed: Yes Vital Signs Reviewed: Yes - Physical Exam Appears: Positive for: Well, Non-toxic, No Acute Distress Head Exam: Positive for: ATRAUMATIC, NORMAL INSPECTION, NORMOCEPHALIC Skin: Positive for: Warm, Dry Eye Exam: Positive for: EOMI, PERRL Cardiovascular/Chest: Positive for: Regular Rate, Rhythm Respiratory: Positive for: Other (diminished breath sounds bilaterally. speaking full sentences. ). Negative for: Rales, Rhonchi Gastrointestinal/Abdominal: Positive for: Soft. Negative for: Tenderness Extremity: Positive for: Normal ROM. Negative for: Other (edema) - Laboratory Results Result Diagrams: 06/30/16 10:43 06/30/16 10:43 - ECG ECG: Positive for: Interpreted By Me, Viewed By Me ECG Rhythm: Positive for: Sinus Tachycardia Interpretation Of ECG: with inferior Q waves Rate: 103 O2 Sat by Pulse Oximetry: 98 (RA) Pulse Ox Interpretation: Normal Medical Decision Making Medical Decision Makin Plan: workup for respiratory failure. Old charts were reviewed, patient had admission in early May 2016 for COPD exacerbation with TCU stay. labs reviewed WBC improved from prior mild elev BUN CXR no active disease per radiologist 1p improving w nebs and solumedrol 3pm HR 78 SPO2 95% RA Resp pattern improved and nonlabored. Watching TV comfortably. Lungs clear. 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 Disposition - Clinical Impression Clinical Impression: COPD exacerbation - Patient ED Disposition Is Patient to be Admitted: No Counseled Patient/Family Regarding: Studies Performed, Diagnosis, Need For Followup - Disposition Referrals: Kareem Son MD [Family Provider] - Disposition: Routine/Home Disposition Time: 16:34 Additional Instructions: See Dr Son tomorrow at 1pm in office, he's expecting you. Continue medications as directed, use nebulizer every 4 hours today and tomorrow. Return to ER for any difficulty breathing. Harley el Dr. Adelaida sheppard a la 1pm en la oficina, l te est esperando. Contine con los medicamentos segn las instrucciones, use nebulizador cada 4 horas avniy y silver. Vuelva al ER para cualquier dificultad para respirar. Prescriptions: Albuterol 0.083% [Albuterol 0.083% Inhal Maddy (2.5 mg/3 ml) UD] 2.5 mg IH Q4 PRN #20 neb PRN Reason: Wheezing Prednisone 50 mg PO DAILY #4 tab Instructions: Chronic Lung Disease and Infection Prevention (ED), COPD ( Chronic Obstructive Pulmonary Disease) (ED) Print Language: TAJIK Additional Comments - Additional Comments Additional Comments: Scribe Attestation Documented by Bentley Jefferson acting as a scribe for Fausto Bender DO. Provider Attestation: All medical record entries made by the Scribe were at my direction and personally dictated by me. I have reviewed the chart and agree that the record accurately reflects my personal performance of the history, physical exam, medical decision making, and the department course for this patient. I have also personally directed, reviewed, and agree with the discharge instructions and disposition.
[2016-06-30 10:58] LABS: BASO % 0.2 % (0.0-2.0); EOS % 0.2 % (0.0-4.0); HEMATOCRIT 42.2 % (35.0-51.0); LYMPH # 2.2 K/uL (1.0-4.3); LYMPH % 15.1 % (20.0-40.0); MEAN CELL VOLUME 91.7 fl (80.0-94.0); MEAN CORPUSCULAR HEMOGLOBIN 30.4 pg (27.0-31.0); MEAN CORPUSCULAR HGB CONC 33.1 g/dL (33.0-37.0); MEAN PLATELET VOLUME 8.9 fl (7.2-11.7); MONO # 1.7 K/uL (0.0-0.8); MONO % 11.8 % (0.0-10.0); NEUT # 10.4 K/uL (1.8-7.0); NEUT % 72.7 % (50.0-75.0); RED CELL DISTRIBUTION WIDTH 18.2 % (11.5-14.5); WHITE BLOOD COUNT 14.4 K/uL (4.8-10.8)
[2016-06-30 11:09] LABS: PARTIAL THROMBOPLASTIN TIME 22.1 SECONDS (23.3-32.5)
[2016-06-30 11:13] LABS: ALB/GLOB RATIO 1.5 (1.0-2.1); ALKALINE PHOSPHATASE 55 U/L (38-126); ALT/SGPT 57 U/L (21-72); AST/SGOT 26 U/L (17-59); BILIRUBIN,TOTAL 0.6 mg/dl (0.2-1.3); BLOOD UREA NITROGEN 22 mg/dl (9-20); CALCIUM 9.5 mg/dL (8.4-10.2); CARBON DIOXIDE 28 mmol/L (22-30); CHLORIDE 98 mmol/L (98-107); GFR AFRICAN-AMERICAN > 60; GLUCOSE,RANDOM 106 mg/dL (75-110); POTASSIUM 3.8 MMOL/L (3.6-5.0); SODIUM 136 mmol/l (132-148); TOTAL PROTEIN 6.4 G/DL (6.3-8.2)
[2016-06-30] MEDS ORDERED: Albuterol-Ipratrop 3 mg / 0.5 (3 ml) UD ONE (12:01)
--- NOTE | 2016-06-30 15:06 | RAD ---
HISTORY: Shortness of breath COMPARISON: 06/02/2016. Single-view chest. 06/02/2016 CT thorax. TECHNIQUE: Chest PA and lateral FINDINGS: LUNGS: No active pulmonary disease. PLEURA: No significant pleural effusion identified. No pneumothorax apparent. CARDIOVASCULAR: No radiographic findings to suggest acute or significant cardiovascular disease. OSSEOUS STRUCTURES: No significant abnormalities. VISUALIZED UPPER ABDOMEN: Normal. OTHER FINDINGS: None. IMPRESSION: No active disease. No significant interval change compared to the prior examination(s).
[2016-06-30 15:33] VITALS: BP 110/77; RESP 18
[2016-06-30 16:32] VITALS: PULSE 103; O2SAT 98
--- NOTE | 2016-07-01 02:12 | CARD ---
APPROVED REPORT EKG Measurement Heart [id number] <Conclusion> Sinus tachycardia, APCs Possible Inferior infarct, age undetermined Abnormal ECG
== END 2016-06-30 17:25 | disposition home or self-care (01) ==
LOC: H.ER 09:46
DX: J44.1 Chronic obstructive pulmonary disease with (acute) exacerbation (principal); R07.89 Other chest pain
CPT/HCPCS: 71020; 80053; 83880; 84484; 85025; 85610; 85730; 93005; 96374; 99285; J2930

== ENCOUNTER 2016-07-06 14:34 | Inpatient (IN) | payer MEDICARE, MEDICAID ==
[2016-07-06 14:34] VITALS: BMI 30.7
[2016-07-06] MEDS ORDERED: Albuterol-Ipratrop 3 mg / 0.5 (3 ml) UD INH STA (15:17)
[2016-07-06] MEDS ORDERED: Albuterol-Ipratrop 3 mg / 0.5 (3 ml) UD ONE (15:30)
[2016-07-06 15:31] LABS: ABG ALLEN TEST YES; ARTERIAL BLOOD GAS HCO3 30.1 mmol/L (21-28); ARTERIAL BLOOD GAS PH 7.54 (7.35-7.45); ARTERIAL BLOOD GAS PO2 78 mm/Hg (80-100)
--- NOTE | 2016-07-06 15:33 | ED PDOC ---
HPI: SOB/CHF/COPD Time Seen by Provider: 07/06/16 15:03 Chief Complaint (Nursing): Shortness Of Breath Chief Complaint (Provider): Shortness of Breath History Per: Patient History/Exam Limitations: no limitations Onset/Duration Of Symptoms: Days (x1) Additional Complaint(s): 15:03 Damien Lopes, 70 year old male presents to the ED on 07/06/16 for shortness of breath, for which he states has been chronically ongoing due to his past medical history inclusive of COPD. The patient states that he has visited the Emergency Room and has been hospitalized multiple times for the same reason. The patient reports that yesterday and today he has been using his Albuterol too frequently which prompted him to visit the Emergency Room. The patient feels chest tightness that radiates to his back, which is also exacerbated due to his COPD. In association to his chest tightness, the patient reports a cough with yellow sputum and dizziness. He denies any fever, chest pain, chills, leg swelling or pain. The patient's past medical history is inclusive of COPD, hypertension, coronary artery disease with one stent placement, hyperlipidemia, and prostate disease. 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 The patient's family history is inclusive of hypertension. PMD: Kareem Son MD Past Medical History Reviewed: Historical Data, Nursing Documentation, Vital Signs Vital Signs: Last Vital Signs Temp 99.8 F H 07/06/16 20:18 Pulse 81 07/06/16 20:18 Resp 16 07/06/16 20:18 BP 114/77 07/06/16 20:18 Pulse Ox 97 07/06/16 20:18 - Medical History PMH: Anemia, Arthritis, CAD, COPD, Emphysema, HTN, Hypercholesterolemia, Rheumatoid Arthritis, Sleep Apnea Denies: HIV, Chronic Kidney Disease Other PMH: Prostate Disease - Surgical History Surgical History: Coronary Stent (x 1 done 2 mos ago) Other surgeries: splenectomy - Family History Family History: States: [place], Hypertension - Social History Current smoker - smoking cessation education provided: No - Home Medications Home Medications: Ambulatory Orders Medication Instructions Recorded Folic Acid 1 mg PO DAILY 01/09/16 Metoprolol Succinate [Toprol XL] 50 mg PO DAILY 01/09/16 Tamsulosin [Flomax] 0.4 mg PO HS 01/09/16 Aspirin [Ecotrin] 81 mg PO DAILY 02/19/16 Atorvastatin [Lipitor] 40 mg PO HS 04/21/16 Cholecalciferol (Vitamin D3) 5,000 unit PO DAILY 04/21/16 [Vitamin D3] Furosemide [Lasix] 40 mg PO DAILY 04/21/16 Promethazine/Codeine 10 ml PO Q6 PRN #0 udc 04/24/16 [Phenergan/Codeine Oral Syrup] guaiFENesin [Mucinex LA] 600 mg PO Q12 30 Days 05/03/16 Fluconazole [Diflucan] 100 mg PO DAILY 05/29/16 Fluticasone/Salmeterol 500/50 1 puff IH Q12 05/29/16 [Advair Diskus 500/50] Hydroxychloroquine Sulfate 400 mg PO DAILY #30 tablet 06/05/16 [Plaquenil] Methotrexate 15 mg PO QWK #30 tab 06/05/16 Prednisone [Prednisone] 5 mg PO DAILY 06/10/16 Albuterol 0.083% [Albuterol 0.083% 2.5 mg IH Q4 PRN #20 neb 06/30/16 Inhal Maddy (2.5 mg/3 ml) UD] Prednisone 50 mg PO DAILY #4 tab 06/30/16 - Allergies Allergies/Adverse Reactions: Allergies Allergy/AdvReac Type Severity Reaction Status Date / Time No Known Allergies Allergy Verified 06/30/16 09:55 Review of Systems ROS Statement: Except As Marked, All Systems Reviewed And Found Negative Constitutional: Negative for: Fever, Chills Cardiovascular: Positive for: Other (chest tightness radiating to his back ). Negative for: Chest Pain Respiratory: Positive for: Cough (with yellow sputum ), Shortness of Breath Musculoskeletal: Negative for: Leg Pain (or leg swelling ) Neurological: Positive for: Dizziness Physical Exam - Reviewed Nursing Documentation Reviewed: Yes Vital Signs Reviewed: Yes - Physical Exam Appears: Positive for: Well, Non-toxic, No Acute Distress Head Exam: Positive for: ATRAUMATIC, NORMOCEPHALIC Skin: Positive for: Warm, Dry, Pallor Eye Exam: Positive for: Normal appearance ENT: Positive for: Normal ENT Inspection Neck: Positive for: Normal, Painless ROM Cardiovascular/Chest: Positive for: Regular Rate, Rhythm, Chest Non Tender Respiratory: Positive for: Normal Breath Sounds. Negative for: Respiratory Distress Gastrointestinal/Abdominal: Positive for: Normal Exam, Soft, Other (protuberant ). Negative for: Tenderness Back: Positive for: Normal Inspection Extremity: Positive for: Normal ROM. Negative for: Deformity Neurologic/Psych: Positive for: Alert, Oriented (x3) - Laboratory Results Result Diagrams: 07/06/16 15:15 07/06/16 15:15 - ECG ECG Rhythm: Positive for: Normal QRS, Normal ST Segment, Sinus Rhythm (normal with occasional PAC) Rate: 96 O2 Sat by Pulse Oximetry: 97 (RA) Pulse Ox Interpretation: Normal Medical Decision Making Medical Decision Makin:03 Initial Impression: 70 year old male with COPD exacerbation Differential diagnosis includes but is not limited to: Pneumonia, Congestive Heart Failure, Effusion, Bronchitis, Allergic Rhinitis Initial Plan: * ABG Shock Panel * ED EKG Stat * B-Type Natriuretic Peptide Stat * COMP Metabolic Panel Stat * Magnesium Stat * Phosphorous Stat * Thyroid Stimulating Hormone Stat * Troponin I Stat * ED Urine Dipstick (POC) Stat * CBC (With Differential) Stat * Partial Thromboplastin Time [COAG] Stat * Prothrombin Time [COAG] Stat * Chest Portable [RAD] Stat * Duoneb 3mg/0.5 (3ml) UD 3 ml INH Stat * Peak Flow Pre/Post Tx * Blood Culture Stat * IV Insertion (Sal[place]) Stat * Reevaluation Chest XRay Findings: FINDINGS: LUNGS: Hyperinflation may be seen in setting of COPD. Subtle infiltrate involving the inferior aspect of the right upper lobe. Please note that chest x-ray has limited sensitivity for the detection of pulmonary masses. PLEURA: No significant pleural effusion identified. No definite pneumothorax . CARDIOVASCULAR: Cardiology. OSSEOUS STRUCTURES: Degenerative changes. VISUALIZED UPPER ABDOMEN: Unremarkable. OTHER FINDINGS: None. IMPRESSION: Hyperinflation may be seen in setting of COPD. Subtle infiltrate involving the inferior aspect of the right upper lobe. Scribe Attestation: Documented by Evelyn Guajardo, acting as a scribe for Velma Yoon MD. Provider Scribe Attestation: All medical record entries made by the Scribe were at my direction and personally dictated by me. I have reviewed the chart and agree that the record accurately reflects my personal performance of the history, physical exam, medical decision making, and the department course for this patient. I have also personally directed, reviewed, and agree with the discharge instructions and disposition. Disposition - Clinical Impression Clinical Impression: CAD (coronary artery disease), COPD exacerbation, Healthcare-associated pneumonia Discussed With DrJose Manuel: Kareem Son Counseled Patient/Family Regarding: Studies Performed, Diagnosis - Disposition Disposition Time: 16:00 Condition: FAIR - Pt Status Changed To: Hospital Disposition Of: Inpatient - Admit Certification Admit to Inpatient:: After my assessment, the patient will require hospitalization for at least two midnights. This is because of the severity of symptoms shown, intensity of services needed, and/or the medical risk in this patient being treated as an outpatient. - POA Present On Arrival: None
[2016-07-06 15:39] LABS: BASO # 0.3 K/uL (0.0-0.2); BASO % 1.2 % (0.0-2.0); EOS # 0.1 K/uL (0.0-0.7); EOS % 0.2 % (0.0-4.0); HEMATOCRIT 41.7 % (35.0-51.0); LYMPH % 17.7 % (20.0-40.0); MEAN CORPUSCULAR HEMOGLOBIN 30.5 pg (27.0-31.0); MEAN CORPUSCULAR HGB CONC 33.2 g/dL (33.0-37.0); MEAN PLATELET VOLUME 9.2 fl (7.2-11.7); MONO # 2.2 K/uL (0.0-0.8); MONO % 7.8 % (0.0-10.0); NEUT # 20.6 K/uL (1.8-7.0); NEUT % 73.1 % (50.0-75.0); NRBC % 0.1 % (0.0-0.0); RED CELL DISTRIBUTION WIDTH 18.2 % (11.5-14.5)
[2016-07-06 15:41] LABS: WHITE BLOOD COUNT 28.3 K/uL (4.8-10.8)
--- NOTE | 2016-07-06 15:45 | RAD ---
HISTORY: sob COMPARISON: Chest x-ray performed 06/30/16 TECHNIQUE: Chest, one view. FINDINGS: LUNGS: Hyperinflation may be seen in setting of COPD. Subtle infiltrate involving the inferior aspect of the right upper lobe. Please note that chest x-ray has limited sensitivity for the detection of pulmonary masses. PLEURA: No significant pleural effusion identified. No definite pneumothorax . CARDIOVASCULAR: Cardiology. OSSEOUS STRUCTURES: Degenerative changes. VISUALIZED UPPER ABDOMEN: Unremarkable. OTHER FINDINGS: None. IMPRESSION: Hyperinflation may be seen in setting of COPD. Subtle infiltrate involving the inferior aspect of the right upper lobe.
[2016-07-06 15:52] LABS: ALB/GLOB RATIO 1.4 (1.0-2.1); ALKALINE PHOSPHATASE 60 U/L (38-126); ALT/SGPT 54 U/L (21-72); AST/SGOT 29 U/L (17-59); BILIRUBIN,TOTAL 0.3 mg/dl (0.2-1.3); BLOOD UREA NITROGEN 23 mg/dl (9-20); CALCIUM 9.6 mg/dL (8.4-10.2); CARBON DIOXIDE 30 mmol/L (22-30); CHLORIDE 98 mmol/L (98-107); GFR AFRICAN-AMERICAN > 60; GLUCOSE,RANDOM 84 mg/dL (75-110); MAGNESIUM 1.9 MG/DL (1.6-2.3); PHOSPHOROUS 2.7 mg/dl (2.5-4.5); POTASSIUM 3.7 MMOL/L (3.6-5.0); SODIUM 136 mmol/l (132-148)
[2016-07-06 16:06] LABS: PARTIAL THROMBOPLASTIN TIME 22.2 SECONDS (23.3-32.5)
[2016-07-06] MEDS ORDERED: Ciprofloxacin 400mg/200ml D5W 400 MG/200 ML BAG IV STA (16:24)
[2016-07-06] MEDS ORDERED: Cefepime 1 GM in Sodium Chloride 0.9% 100 ML IVPB STA (16:24)
[2016-07-06 16:26] LABS: THYROID STIMULATING HORMONE 0.88 mIU/ML (0.46-4.68)
[2016-07-06] MEDS ORDERED: Ciprofloxacin 400mg/200ml D5W 400 MG/200 ML BAG IVPB ONE (16:39)
[2016-07-07] MEDS ORDERED: Promethazine/Cod 6.25mg-10mg/5ml Syr UD PO PRN (00:13)
[2016-07-07] MEDS ORDERED: Albuterol-Ipratrop 3 mg / 0.5 (3 ml) UD INH STA (00:34)
[2016-07-07] MEDS ORDERED: methylPREDNISolone 30 MG in Sodium Chloride 0.9% 50 ML IVPB SCH (01:00)
[2016-07-07] MEDS ORDERED: Promethazine/Cod 6.25mg-10mg/5ml Syr UD PO SCH ×2 (01:00)
--- NOTE | 2016-07-07 01:17 | CARD ---
APPROVED REPORT EKG Measurement Heart [id number] <Conclusion> Sinus rhythm with premature atrial complexes Otherwise normal ECG
[2016-07-07] MEDS: Albuterol-Ipratrop 3 mg / 0.5 (3 ml) UD INH SCH ×6 (05:00→23:44)
[2016-07-07 07:29] LABS: HEMATOCRIT 40.4 % (35.0-51.0); MEAN CORPUSCULAR HEMOGLOBIN 30.1 pg (27.0-31.0); MEAN CORPUSCULAR HGB CONC 32.7 g/dL (33.0-37.0); RED CELL DISTRIBUTION WIDTH 18.4 % (11.5-14.5); WHITE BLOOD COUNT 24.9 K/uL (4.8-10.8)
[2016-07-07 07:41] LABS: ALB/GLOB RATIO 1.4 (1.0-2.1); ALKALINE PHOSPHATASE 58 U/L (38-126); ALT/SGPT 49 U/L (21-72); AST/SGOT 22 U/L (17-59); BILIRUBIN,TOTAL 0.4 mg/dl (0.2-1.3); BLOOD UREA NITROGEN 16 mg/dl (9-20); CALCIUM 8.8 mg/dL (8.4-10.2); CARBON DIOXIDE 26 mmol/L (22-30); CHLORIDE 101 mmol/L (98-107); GFR AFRICAN-AMERICAN > 60; GLUCOSE,RANDOM 85 mg/dL (75-110); POTASSIUM 3.5 MMOL/L (3.6-5.0); SODIUM 136 mmol/l (132-148); TOTAL PROTEIN 5.8 G/DL (6.3-8.2)
[2016-07-07 07:43] LABS: PARTIAL THROMBOPLASTIN TIME 24.3 SECONDS (23.3-32.5)
[2016-07-07] MEDS ORDERED: Metoprolol Succinate 50 mg XL Tab PO SCH (09:00)
[2016-07-07] MEDS ORDERED: Patient's Own Med (Cholecalciferol (Vitamin D3) [Vitamin D3] 5,000 unit) PO SCH (09:00)
[2016-07-07] MEDS ORDERED: Ciprofloxacin 400mg/200ml D5W 400 MG/200 ML BAG IVPB SCH ×2 (09:00→12:00)
[2016-07-07] MEDS: guaiFENesin 600 mg ER Tab PO SCH ×2 (09:26→20:58)
[2016-07-07] MEDS: Pantoprazole 40 mg EC Tab PO SCH (09:26)
[2016-07-07] MEDS: Enoxaparin 40 mg Syringe SC SCH (09:29)
[2016-07-07] MEDS: methylPREDNISolone 30 MG in Sodium Chloride 0.9% 50 ML IVPB SCH ×2 (10:19→17:08)
[2016-07-07] MEDS: Cefepime 1 GM in Sodium Chloride 0.9% 100 ML IVPB SCH ×2 (10:25→20:56)
[2016-07-07] MEDS ORDERED: Sodium Chloride 3% for Inhalation 4 ML VIAL.NEB IH PRN (11:22)
--- NOTE | 2016-07-07 11:42 | IP.NPCORE ---
Pneumonia Progress Notes - Oxygenation Assessment (REQUIRED) Documented 02: Yes Oxygen Delivery Method: Room Air Documented P02: Yes Date:: 07/06/16 - Blood Cultures (REQUIRED) Culture drawn: Yes - Initial Antibiotic Initial Antibiotic given within Four Hours:: Yes - Appropriate Antibiotic Appropriate Antibiotic within 24 hours of Admission:: Yes Current Antibiotic: cipro/maxipime - Pneumonia Vaccine Pneumonia Vaccine: Yes (Vaccine up to date) - Smoking Cessation Ex-Smoker (has not smoked in the last 12 months): Yes
[2016-07-07] MEDS ORDERED: Potassium Chloride 20 mEq ER Tab PO ONE (12:43)
--- NOTE | 2016-07-07 14:50 | CT ---
PROCEDURE: CT Chest without contrast HISTORY: Pneumonia. [place] for medical COPD COMPARISON: 06/02/2016. CT thorax July 06, 2016. Single-view chest. Summary of findings on the comparison examination: Subtle infiltrate involving the inferior aspect of the right upper lobe. TECHNIQUE: Contiguous axial images were obtained through the chest without intravenous contrast enhancement. Sagittal and coronal reconstructions were performed. Radiation dose (DLP): 675.13 mGy-cm. This CT exam was performed using one or more of the following dose reduction techniques: Automated exposure control, adjustment of the mA and/or kV according to patient size, and/or use of iterative reconstruction technique. FINDINGS: LUNGS: Bronchiectatic changes upper lobe distribution including both cystic and traction type. Underlying hyperinflation/ manifestations of interstitial lung disease. Stable CT of thorax compared to the prior study. MEDIASTINUM: Unremarkable thoracic aorta. No aneurysm. Normal sized heart. Main pulmonary artery unremarkable. No vascular congestion. No lymphadenopathy. PLEURA: No pleural fluid. No pneumothorax. BONES: No fracture. No destructive lesion. UPPER ABDOMEN: Grossly unremarkable. OTHER FINDINGS: None. IMPRESSION: No discrete infiltrates. Stable/moderate bronchiectatic changes. Stable manifestations of COPD primarily hyperinflation and chronic interstitial lung disease.
--- NOTE | 2016-07-07 15:35 | CP.PCM.HP ---
History of Present Illness - History of Present Illness History of Present Illness: CC: SOB. 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 Pt using Nebulizer Tx with no relief of symptoms. Pt c/o of SOB associated to chest congestion with productive cough and scant yellowish phlegms. Aggravated symptom: GREEN, dyspnea at rest, Hx of COPD. Pt with last admission to [facility] on 06/02/16 for COPD Exacerbation, weakness, there after on 06/05/16 was transfer to TCU to resume abx Tx and PT. Pt was discharged in improved condition on 06/10/16. 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 Pt denied: Fever, chills, bloody cough, hemoptysis, CP, Abdominal pain, n/v/d, syncope, sick contact. No Hx of DVT, PE, Bronchial Asthma, Allergic Rhinitis, Urticaria, Industrial exposure. PMHx: COPD, Emphysema, Asthma, Hx smoker 2-3 PPD x 40 yrs( quit 5 yrs ago), ANDRZEJ , PNA, HTN, Coronay Stent x1, Cardiac Cath , Anemia, R/A, O/A, Anemia, Singles, CXR shows: Infiltrate RUL. CT Chest: No discrete infiltrates. Stable manifestation of COPD primaly hyperinflation and chronic interstitial lung disease. EKG: Sinus Rhythm with premature Atrial complexes. Present on Admission - Present on Admission Any Indicators Present on Admission: No Review of Systems - Constitutional Constitutional: Other (negative) - EENT Eyes: Requires Corrective Lenses, Other (Cataract L eye) Ears: Other Nose/Mouth/Throat: Other (negative) - Cardiovascular Cardiovascular: Other (negative) - Respiratory Respiratory: Cough, Dyspnea, Chest Congestion, Excessive Mucous Production, Change in Mucous Color - Gastrointestinal Gastrointestinal: Heartburn - Genitourinary Genitourinary: Other (negative) - Musculoskeletal Musculoskeletal: Arthralgias - Integumentary Integumentary: Other (negative) - Neurological Neurological: Other (negative) - Psychiatric Psychiatric: Anxiety - Endocrine Endocrine: Other (negative) - Hematologic/Lymphatic Hematologic: Other (negative) Past Patient History - Past Medical History & Family History Past Medical History?: Yes Pertinent Family History: HTN, [place] - Past Social History Smoking Status: Former Smoker Alcohol: None Drugs: Denies Home Situation {Lives}: Alone - CARDIAC Hx Cardiac Disorders: No - PULMONARY Hx Respiratory Disorders: Yes Hx Asthma: Yes Hx Chronic Obstructive Pulmonary Disease (COPD): Yes Hx Emphysema: Yes Hx Pneumonia: Yes Hx Sleep Apnea: Yes - NEUROLOGICAL Hx Neurological Disorder: No - HEENT Hx HEENT Problems: No Hx Cataracts: No (denies) - RENAL Hx Chronic Kidney Disease: No - ENDOCRINE/METABOLIC Hx Endocrine Disorders: No Hx Diabetes Mellitus Type 2: No - HEMATOLOGICAL/ONCOLOGICAL Hx Blood Disorders: Yes Hx Anemia: Yes Hx Human Immunodeficiency Virus (HIV): No - INTEGUMENTARY Hx Dermatological Problems: No - MUSCULOSKELETAL/RHEUMATOLOGICAL Hx Musculoskeletal Disorders: Yes Hx Arthritis: Yes Hx Falls: No Hx Rheumatoid Arthritis: Yes - GASTROINTESTINAL Hx Gastrointestinal Disorders: Yes Hx Gastroesophageal Reflux: Yes - GENITOURINARY/GYNECOLOGICAL Hx Genitourinary Disorders: No - PSYCHIATRIC Hx Psychophysiologic Disorder: No Hx Substance Use: No - SURGICAL HISTORY Hx Surgeries: Yes Hx Coronary Stent: Yes (x 1 done 2 mos ago) - ANESTHESIA Hx Anesthesia: Yes Hx Anesthesia Reactions: No Hx Malignant Hyperthermia: No Meds Allergies/Adverse Reactions: Allergies Allergy/AdvReac Type Severity Reaction Status Date / Time No Known Allergies Allergy Verified 06/30/16 09:55 Physical Exam - Constitutional Appears: No Acute Distress - Head Exam Head Exam: NORMAL INSPECTION - Eye Exam Eye Exam: PERRL - ENT Exam ENT Exam: Normal Oropharynx - Neck Exam Neck exam: Positive for: Normal Inspection - Respiratory Exam Respiratory Exam: Decreased Breath Sounds (at bases), Rhonchi (scattered) - Cardiovascular Exam Cardiovascular Exam: REGULAR RHYTHM - GI/Abdominal Exam GI & Abdominal Exam: Normal Bowel Sounds, Soft - Extremities Exam Extremities exam: Positive for: normal inspection - Back Exam Back exam: NORMAL INSPECTION - Neurological Exam Neurological exam: Alert, Oriented x3 Additional comments: No motor sensory deficit. - Psychiatric Exam Psychiatric exam: Normal Mood - Skin Skin Exam: Warm Results - Vital Signs Recent Vital Signs: Last Vital Signs Temp 98.4 F 07/07/16 08:01 Pulse 82 07/07/16 12:17 Resp 22 07/07/16 12:17 BP 107/63 07/07/16 12:17 Pulse Ox 94 L 07/07/16 12:17 reviewed J.P. - Labs Result Diagrams: 07/07/16 07:10 07/07/16 07:10 Labs: Laboratory Results - last 24 hr 07/07/16 07/07/16 07/07/16 07:10 07:10 07:10 WBC 24.9 H RBC 4.40 Hgb 13.2 Hct 40.4 MCV 92.0 MCH 30.1 MCHC 32.7 L RDW 18.4 H Plt Count 347 PT 11.1 INR 1.07 APTT 24.3 Sodium 136 Potassium 3.5 L Chloride 101 Carbon Dioxide 26 Anion Gap 13 BUN 16 Creatinine 0.7 L Est GFR ( Amer) > 60 Est GFR (Non-Af Amer) > 60 Random Glucose 85 Calcium 8.8 Total Bilirubin 0.4 AST 22 ALT 49 Alkaline Phosphatase 58 Total Protein 5.8 L Albumin 3.3 L Globulin 2.4 Albumin/Globulin Ratio 1.4 reviewed J.P. - EKG Data EKG comments: reviewed J.P. - Imaging and Cardiology Chest x-ray Status: Report reviewed by me (J.P.) CT scan - chest Status: Report reviewed by me (J.P.) Assessment & Plan (1) COPD exacerbation Status: Acute Priority: High (2) RA (rheumatoid arthritis) Status: Chronic Priority: High (3) CAD (coronary artery disease) Status: Chronic Priority: Medium - Assessment and Plan (Free Text) Plan: Continue with Vanco, cefepime, Cipro, Duoneb, Solumedrol, Mucinex and rest of Tx. f/u Sputum C-S, PT eval. - Date & Time Date: 07/07/16 Time: 12:00
[2016-07-08] MEDS: methylPREDNISolone 30 MG in Sodium Chloride 0.9% 50 ML IVPB SCH ×2 (04:14→16:36)
[2016-07-08] MEDS: Albuterol-Ipratrop 3 mg / 0.5 (3 ml) UD INH SCH ×5 (05:00→19:40)
[2016-07-08] MEDS: Cefepime 1 GM in Sodium Chloride 0.9% 100 ML IVPB SCH ×2 (08:40→20:10)
[2016-07-08] MEDS: Enoxaparin 40 mg Syringe SC SCH ×2 (08:42→08:52)
[2016-07-08] MEDS: guaiFENesin 600 mg ER Tab PO SCH ×2 (08:43→20:12)
[2016-07-08] MEDS: Metoprolol Succinate 50 mg XL Tab PO SCH (08:44)
[2016-07-08] MEDS: Pantoprazole 40 mg EC Tab PO SCH (08:44)
--- NOTE | 2016-07-08 09:28 | PQF GENQUE ---
This form is a permanent part of the medical record 07/08/16 Dr. Son, ER has documented the following information with no mention of this diagnosis in your documentation. Please indicate in your next progress note and/or discharge summary your agreement with sales enablement consultant or provide clarification that this diagnosis is not a current condition. Diagnosis: Healthcare-associated Pneumonia Documented by : ERMD. Admitted with GREEN, chest congestion with productive cough. History of COPD and Pneumonia. ER MD with an additional diagnosis of Healthcare associated pneumonia. CXR with RUL infiltrate. CT Chest with no discrete infiltrates. WBC 28.3 but patient on prednisone at home. Treated with Cefepime and Vancomycin. Clarification of your documentation is requested to better reflect the severity of illness and intensity of treatment of your patient. PHYSICIAN'S RESPONSE Based on your medical judgment of the clinical indicators outlined above please clarify the following: [] Practitioner response [] If unable to determine, please check the box, sign and date. Present On Admission (POA) Indicator: [] Present at the time of admission [] Not present at the time of admission [] Clinically Undetermined In responding to this query, please exercise your independent professional judgment. The fact that a question is asked does not imply that any particular answer is desired or expected. Thank you for your clarification on this documentation. If you have any questions please call:extension [phone] Medical Records * Thank you, Elaine Madrid RN [facility]
[2016-07-08 11:31] LABS: HEMATOCRIT 36.1 % (35.0-51.0); MEAN CELL VOLUME 91.7 fl (80.0-94.0); MEAN CORPUSCULAR HEMOGLOBIN 30.4 pg (27.0-31.0); MEAN CORPUSCULAR HGB CONC 33.1 g/dL (33.0-37.0); RED CELL DISTRIBUTION WIDTH 18.5 % (11.5-14.5); WHITE BLOOD COUNT 27.3 K/uL (4.8-10.8)
[2016-07-08 11:49] LABS: BLOOD UREA NITROGEN 17 mg/dl (9-20); CALCIUM 9.3 mg/dL (8.4-10.2); CARBON DIOXIDE 26 mmol/L (22-30); CHLORIDE 101 mmol/L (98-107); GFR AFRICAN-AMERICAN > 60; GLUCOSE,RANDOM 247 mg/dL (75-110); POTASSIUM 4.9 MMOL/L (3.6-5.0); SODIUM 136 mmol/l (132-148)
--- NOTE | 2016-07-08 15:23 | CP.PCM.PN ---
Subjective - Date & Time of Evaluation Date of Evaluation: 07/08/16 Time of Evaluation: 11:40 - Subjective Subjective: F/U COPD Exacerbation. breathing better , less chest congestion Objective - Vital Signs/Intake and Output Vital Signs (last 24 hours): Temp Pulse Resp BP Pulse Ox 97.6 F 74 18 127/71 96 07/08/16 07:39 07/08/16 07:39 07/08/16 07:39 07/08/16 08:44 07/08/16 07:39 - Medications Medications: Current Medications Albuterol/Ipratropium (Duoneb 3 Mg/0.5 Mg (3 Ml) Ud) 3 ml INH RQ4 [facility] Last Admin: 07/08/16 12:08 Dose: 3 ml Aspirin (Ecotrin) 81 mg PO DAILY [facility] Last Admin: 07/08/16 08:42 Dose: 81 mg Atorvastatin Calcium (Lipitor) 40 mg PO HS [facility] Last Admin: 07/07/16 21:02 Dose: 40 mg Cholecalciferol (Vitamin D) 5,000 iu PO DAILY [facility] Last Admin: 07/08/16 08:42 Dose: 5,000 iu Enoxaparin Sodium (Lovenox) 40 mg SC DAILY [facility] PRN Reason: Protocol Last Admin: 07/08/16 08:52 Dose: Not Given Folic Acid (Folic Acid) 1 mg PO DAILY [facility] Last Admin: 07/08/16 08:42 Dose: 1 mg Furosemide (Lasix) 40 mg PO DAILY [facility] Guaifenesin (Mucinex La) 600 mg PO Q12 [facility] Last Admin: 07/08/16 08:43 Dose: 600 mg Hydroxychloroquine Sulfate (Plaquenil) 400 mg PO DAILY [facility] Last Admin: 07/08/16 08:43 Dose: 400 mg Cefepime HCl 1 gm/ Sodium (Chloride) 100 mls @ 100 mls/hr IVPB Q12 [facility] Last Admin: 07/08/16 08:40 Dose: 100 mls/hr Vancomycin HCl 1 gm/ Sodium (Chloride) 250 mls @ 166.667 mls/hr IVPB Q12@0500, 1700 [facility] Last Admin: 07/08/16 04:50 Dose: 166.667 mls/hr Methylprednisolone 30 mg/ (Sodium Chloride) 50 mls @ 100 mls/hr IVPB Q12H [facility] Last Admin: 07/08/16 04:14 Dose: 100 mls/hr Methotrexate (Methotrexate) 15 mg PO SUN [facility] PRN Reason: Protocol Metoprolol Succinate (Toprol Xl) 50 mg PO DAILY [facility] Last Admin: 07/08/16 08:44 Dose: 50 mg Pantoprazole Sodium (Protonix Ec Tab) 40 mg PO DAILY [facility] Last Admin: 07/08/16 08:44 Dose: 40 mg Promethazine HCl/Codeine (Phenergan/Codeine Oral Syrup) 10 ml PO Q4 PRN PRN Reason: Cough Tamsulosin HCl (Flomax) 0.4 mg PO [facility] Last Admin: 07/07/16 21:02 Dose: 0.4 mg Zolpidem Tartrate (Ambien) 5 mg PO [facility] Last Admin: 07/07/16 23:17 Dose: 5 mg - Labs Labs: 07/08/16 11:15 07/08/16 11:15 PT 11.1 SECONDS (9.6-11.2) 07/07/16 07:10 INR 1.07 (0.92-1.08) 07/07/16 07:10 APTT 24.3 SECONDS (23.3-32.5) 07/07/16 07:10 - Constitutional Appears: No Acute Distress - Head Exam Head Exam: NORMAL INSPECTION - Eye Exam Eye Exam: PERRL - ENT Exam ENT Exam: Normal Oropharynx - Neck Exam Neck Exam: Normal Inspection - Respiratory Exam Respiratory Exam: Decreased Breath Sounds (at bases), Rhonchi (scattered) - Cardiovascular Exam Cardiovascular Exam: REGULAR RHYTHM - GI/Abdominal Exam GI & Abdominal Exam: Soft, Normal Bowel Sounds - Extremities Exam Extremities Exam: Normal Inspection - Back Exam Back Exam: NORMAL INSPECTION - Neurological Exam Neurological Exam: Alert, Oriented x3. absent: Motor Sensory Deficit - Psychiatric Exam Psychiatric exam: Normal Mood - Skin Skin Exam: Warm Assessment and Plan (1) COPD exacerbation Status: Acute (2) RA (rheumatoid arthritis) Status: Chronic (3) CAD (coronary artery disease) Status: Chronic - Assessment and Plan (Free Text) Plan: Continue Duo Neb , Solu Medrol, Cefepime , and rest of treatment
[2016-07-09] MEDS: Albuterol-Ipratrop 3 mg / 0.5 (3 ml) UD INH SCH ×7 (00:09→23:13)
[2016-07-09] MEDS: methylPREDNISolone 30 MG in Sodium Chloride 0.9% 50 ML IVPB SCH ×3 (04:05→23:13)
[2016-07-09] MEDS: Cefepime 1 GM in Sodium Chloride 0.9% 100 ML IVPB SCH ×2 (08:17→21:37)
[2016-07-09] MEDS: guaiFENesin 600 mg ER Tab PO SCH ×2 (08:19→21:38)
[2016-07-09] MEDS: Metoprolol Succinate 50 mg XL Tab PO SCH ×2 (08:19→08:29)
[2016-07-09] MEDS: Enoxaparin 40 mg Syringe SC SCH ×2 (08:19→08:24)
[2016-07-09] MEDS: Pantoprazole 40 mg EC Tab PO SCH (08:20)
--- NOTE | 2016-07-09 14:59 | CP.PCM.PN ---
Subjective - Date & Time of Evaluation Date of Evaluation: 07/09/16 Time of Evaluation: 12:30 - Subjective Subjective: F/U COPD Exacerbation. increased Chest congestion, SOB , cough with scanty amount of flegm Objective - Vital Signs/Intake and Output Vital Signs (last 24 hours): Temp Pulse Resp BP Pulse Ox 97.4 F L 66 17 122/80 99 07/09/16 07:38 07/09/16 07:38 07/09/16 07:38 07/09/16 07:38 07/09/16 07:38 - Medications Medications: Current Medications Albuterol/Ipratropium (Duoneb 3 Mg/0.5 Mg (3 Ml) Ud) 3 ml INH RQ4 [facility] Last Admin: 07/09/16 11:15 Dose: 3 ml Aspirin (Ecotrin) 81 mg PO DAILY [facility] Last Admin: 07/09/16 08:22 Dose: 81 mg Atorvastatin Calcium (Lipitor) 40 mg PO HS [facility] Last Admin: 07/08/16 22:12 Dose: 40 mg Cholecalciferol (Vitamin D) 5,000 iu PO DAILY [facility] Last Admin: 07/09/16 08:19 Dose: 5,000 iu Enoxaparin Sodium (Lovenox) 40 mg SC DAILY [facility] PRN Reason: Protocol Last Admin: 07/09/16 08:24 Dose: Not Given Folic Acid (Folic Acid) 1 mg PO DAILY [facility] Last Admin: 07/09/16 08:19 Dose: 1 mg Furosemide (Lasix) 40 mg PO DAILY [facility] Guaifenesin (Mucinex La) 600 mg PO Q12 [facility] Last Admin: 07/09/16 08:19 Dose: 600 mg Hydroxychloroquine Sulfate (Plaquenil) 400 mg PO DAILY [facility] Last Admin: 07/09/16 08:19 Dose: 400 mg Cefepime HCl 1 gm/ Sodium (Chloride) 100 mls @ 100 mls/hr IVPB Q12 [facility] Last Admin: 07/09/16 08:17 Dose: 100 mls/hr Vancomycin HCl 1 gm/ Sodium (Chloride) 250 mls @ 166.667 mls/hr IVPB Q12@0500, 1700 [facility] Last Admin: 07/09/16 04:39 Dose: 166.667 mls/hr Methylprednisolone 30 mg/ (Sodium Chloride) 50 mls @ 100 mls/hr IVPB Q8H [facility] Last Admin: 07/09/16 14:31 Dose: 100 mls/hr Methotrexate (Methotrexate) 15 mg PO SUN [facility] PRN Reason: Protocol Metoprolol Succinate (Toprol Xl) 50 mg PO DAILY [facility] Last Admin: 07/09/16 08:29 Dose: Not Given Pantoprazole Sodium (Protonix Ec Tab) 40 mg PO DAILY [facility] Last Admin: 07/09/16 08:20 Dose: 40 mg Promethazine HCl/Codeine (Phenergan/Codeine Oral Syrup) 10 ml PO Q4 PRN PRN Reason: Cough Tamsulosin HCl (Flomax) 0.4 mg PO [facility] Last Admin: 07/08/16 22:12 Dose: 0.4 mg Zolpidem Tartrate (Ambien) 5 mg PO [facility] Last Admin: 07/08/16 22:12 Dose: 5 mg - Labs Labs: 07/08/16 11:15 07/08/16 11:15 PT 11.1 SECONDS (9.6-11.2) 07/07/16 07:10 INR 1.07 (0.92-1.08) 07/07/16 07:10 APTT 24.3 SECONDS (23.3-32.5) 07/07/16 07:10 - Constitutional Appears: No Acute Distress - Head Exam Additional comments: Cushinoid face - Eye Exam Eye Exam: PERRL - ENT Exam ENT Exam: Normal Oropharynx - Neck Exam Neck Exam: Normal Inspection - Respiratory Exam Respiratory Exam: Decreased Breath Sounds (at bases), Rhonchi, Wheezes ( scattered) - Cardiovascular Exam Cardiovascular Exam: REGULAR RHYTHM - GI/Abdominal Exam GI & Abdominal Exam: Soft, Normal Bowel Sounds - Extremities Exam Extremities Exam: Normal Inspection - Back Exam Back Exam: NORMAL INSPECTION - Neurological Exam Neurological Exam: Alert, Oriented x3. absent: Motor Sensory Deficit - Psychiatric Exam Psychiatric exam: Normal Mood - Skin Skin Exam: Warm Assessment and Plan (1) COPD exacerbation Status: Acute (2) RA (rheumatoid arthritis) Status: Chronic (3) CAD (coronary artery disease) Status: Chronic - Assessment and Plan (Free Text) Plan: Continue Cefepime , Vanco , Solu Medrol , DuoNeb , and rest of treatment,f/u sputum C-S
[2016-07-10] MEDS: Albuterol-Ipratrop 3 mg / 0.5 (3 ml) UD INH SCH ×5 (04:05→20:02)
[2016-07-10] MEDS ORDERED: methylPREDNISolone 30 MG in Sodium Chloride 0.9% 50 ML IVPB SCH (07:15)
[2016-07-10 07:55] LABS: HEMATOCRIT 36.8 % (35.0-51.0); MEAN CELL VOLUME 91.7 fl (80.0-94.0); MEAN CORPUSCULAR HEMOGLOBIN 30.2 pg (27.0-31.0); MEAN CORPUSCULAR HGB CONC 32.9 g/dL (33.0-37.0); RED CELL DISTRIBUTION WIDTH 18.2 % (11.5-14.5); WHITE BLOOD COUNT 28.2 K/uL (4.8-10.8)
[2016-07-10 08:01] LABS: BLOOD UREA NITROGEN 18 mg/dl (9-20); CALCIUM 9.7 mg/dL (8.4-10.2); CARBON DIOXIDE 27 mmol/L (22-30); CHLORIDE 102 mmol/L (98-107); GFR AFRICAN-AMERICAN > 60; GLUCOSE,RANDOM 148 mg/dL (75-110); POTASSIUM 4.2 MMOL/L (3.6-5.0); SODIUM 139 mmol/l (132-148)
[2016-07-10] MEDS: Cefepime 1 GM in Sodium Chloride 0.9% 100 ML IVPB SCH ×2 (08:14→21:12)
[2016-07-10] MEDS: Enoxaparin 40 mg Syringe SC SCH (08:14)
[2016-07-10] MEDS: Pantoprazole 40 mg EC Tab PO SCH (08:15)
[2016-07-10] MEDS: guaiFENesin 600 mg ER Tab PO SCH ×2 (08:15→21:13)
[2016-07-10] MEDS: Metoprolol Succinate 50 mg XL Tab PO SCH ×2 (08:16→09:38)
--- NOTE | 2016-07-10 18:59 | CP.PCM.PN ---
Subjective - Date & Time of Evaluation Date of Evaluation: 07/10/16 Time of Evaluation: 11:10 - Subjective Subjective: F/U COPD Exacerbation. Pt breathing better today,chest congestion improved, swelling L forearm and arm. Objective - Vital Signs/Intake and Output Vital Signs (last 24 hours): Temp Pulse Resp BP Pulse Ox 98.4 F 76 18 142/85 96 07/10/16 17:00 07/10/16 17:00 07/10/16 17:00 07/10/16 17:00 07/10/16 17:00 - Medications Medications: Current Medications Albuterol/Ipratropium (Duoneb 3 Mg/0.5 Mg (3 Ml) Ud) 3 ml INH RQ4 [facility] Last Admin: 07/10/16 15:33 Dose: 3 ml Aspirin (Ecotrin) 81 mg PO DAILY [facility] Last Admin: 07/10/16 08:13 Dose: 81 mg Atorvastatin Calcium (Lipitor) 40 mg PO HS [facility] Last Admin: 07/09/16 21:38 Dose: 40 mg Cholecalciferol (Vitamin D) 5,000 iu PO DAILY [facility] Last Admin: 07/10/16 08:16 Dose: 5,000 iu Enoxaparin Sodium (Lovenox) 40 mg SC DAILY [facility] PRN Reason: Protocol Last Admin: 07/10/16 08:14 Dose: Not Given Folic Acid (Folic Acid) 1 mg PO DAILY [facility] Last Admin: 07/10/16 08:13 Dose: 1 mg Furosemide (Lasix) 40 mg PO DAILY [facility] Guaifenesin (Mucinex La) 600 mg PO Q12 [facility] Last Admin: 07/10/16 08:15 Dose: 600 mg Hydroxychloroquine Sulfate (Plaquenil) 400 mg PO DAILY [facility] Last Admin: 07/10/16 08:15 Dose: 400 mg Cefepime HCl 1 gm/ Sodium (Chloride) 100 mls @ 100 mls/hr IVPB Q12 [facility] Last Admin: 07/10/16 08:14 Dose: 100 mls/hr Vancomycin HCl 1 gm/ Sodium (Chloride) 250 mls @ 166.667 mls/hr IVPB Q12@0500, 1700 [facility] Last Admin: 07/10/16 17:04 Dose: 166.667 mls/hr Methylprednisolone 30 mg/ (Sodium Chloride) 50 mls @ 100 mls/hr IVPB Q12 [facility] Methotrexate (Methotrexate) 15 mg PO SUN [facility] PRN Reason: Protocol Metoprolol Succinate (Toprol Xl) 50 mg PO DAILY [facility] Last Admin: 07/10/16 09:38 Dose: Not Given Pantoprazole Sodium (Protonix Ec Tab) 40 mg PO DAILY [facility] Last Admin: 07/10/16 08:15 Dose: 40 mg Promethazine HCl/Codeine (Phenergan/Codeine Oral Syrup) 10 ml PO Q4 PRN PRN Reason: Cough Tamsulosin HCl (Flomax) 0.4 mg PO HS [facility] Last Admin: 07/09/16 21:38 Dose: 0.4 mg Zolpidem Tartrate (Ambien) 5 mg PO HS [facility] Last Admin: 07/09/16 21:41 Dose: 5 mg - Labs Labs: 07/10/16 06:10 07/10/16 06:10 PT 11.1 SECONDS (9.6-11.2) 07/07/16 07:10 INR 1.07 (0.92-1.08) 07/07/16 07:10 APTT 24.3 SECONDS (23.3-32.5) 07/07/16 07:10 - Constitutional Appears: No Acute Distress - Head Exam Additional comments: Cushinoid face - Eye Exam Eye Exam: PERRL - ENT Exam ENT Exam: Normal Oropharynx - Neck Exam Neck Exam: Normal Inspection - Respiratory Exam Respiratory Exam: Decreased Breath Sounds (at bases) - Cardiovascular Exam Cardiovascular Exam: REGULAR RHYTHM - GI/Abdominal Exam GI & Abdominal Exam: Soft, Normal Bowel Sounds - Extremities Exam Additional comments: Swelling, L forearm and distal arm, hep-lock antecubital fossa. - Back Exam Back Exam: NORMAL INSPECTION - Neurological Exam Neurological Exam: Alert, Oriented x3. absent: Motor Sensory Deficit - Psychiatric Exam Psychiatric exam: Normal Mood - Skin Skin Exam: Warm Assessment and Plan (1) COPD exacerbation Status: Acute (2) RA (rheumatoid arthritis) Status: Chronic (3) CAD (coronary artery disease) Status: Chronic - Assessment and Plan (Free Text) Plan: Venous Doppler ABHISHEK MALDONADO consult.
[2016-07-10] MEDS: methylPREDNISolone 30 MG in Sodium Chloride 0.9% 50 ML IVPB SCH ×2 (20:33→21:00)
[2016-07-11] MEDS: Albuterol-Ipratrop 3 mg / 0.5 (3 ml) UD INH SCH ×4 (00:22→11:06)
[2016-07-11 02:07] VITALS: RESP 20
[2016-07-11 08:29] VITALS: BP 148/94; PULSE 77; TEMP 98.4; O2SAT 96
[2016-07-11] MEDS: Enoxaparin 40 mg Syringe SC SCH (09:31)
[2016-07-11] MEDS: Cefepime 1 GM in Sodium Chloride 0.9% 100 ML IVPB SCH (09:33)
[2016-07-11] MEDS: methylPREDNISolone 30 MG in Sodium Chloride 0.9% 50 ML IVPB SCH (09:33)
[2016-07-11] MEDS: Metoprolol Succinate 50 mg XL Tab PO SCH ×2 (09:34→09:40)
[2016-07-11] MEDS: Pantoprazole 40 mg EC Tab PO SCH (09:34)
[2016-07-11] MEDS: guaiFENesin 600 mg ER Tab PO SCH (09:34)
--- NOTE | 2016-07-11 12:40 | CP.PCM.CON ---
History of Present Illness - History of Present Illness History of Present Illness: 70 y/o M, brought to ER [facility], [place] by EMS for SOB x 3 days [employer]INT [employer]PER[employer]OR, increased on DOA. Pt using Nebulizer Tx with no relief of symptoms. Pt c/o of SOB associated to chest congestion with productive cough and scant yellowish phlegms. Aggravated symptom: GREEN, dyspnea at rest, Hx of COPD. developed painful swelling left arm ID consulted r/o myositis PMHx: COPD, Emphysema, Asthma, Hx smoker 2-3 PPD x 40 yrs( quit 5 yrs ago), ANDRZEJ , PNA, HTN, Coronay Stent x1, Cardiac Cath , Anemia, R/A, O/A, Anemia, Singles, CXR shows: Infiltrate RUL. CT Chest: No discrete infiltrates. Stable manifestation of COPD primaly hyperinflation and chronic interstitial lung disease. Review of Systems - Constitutional Constitutional: As Per HPI - EENT Eyes: absent: As Per HPI, Blind Spots, Blurred Vision, Change in Vision, Decreased Night Vision, Diplopia, Discharge, Dry Eye, Exophthalmos, Floaters, Irritation, Itchy Eyes, Loss of Peripheral Vision, Pain, Photophobia, Requires Corrective Lenses, Sees Flashes, Spots in Vision, Tunnel Vision, Other Visual Disturbances, Loss of Vision, Other Ears: absent: As Per HPI, Decreased Hearing, Ear Discharge, Ear Pain, Tinnitus, Abnormal Hearing, Disequilibrium, Dizziness, Other Nose/Mouth/Throat: absent: As Per HPI, Epistaxis, Nasal Congestion, Nasal Discharge, Nasal Obstruction, Nasal Trauma, Nose Pain, Post Nasal Drip, Sinus Pain, Sinus Pressure, Bleeding Gums, Change in Voice, Dental Pain, Dry Mouth, Dysphagia, Halitosis, Hoarsness, Lip Swelling, Mouth Lesions, Mouth Pain, Odynophagia, Sore Throat, Throat Swelling, Tongue Swelling, Facial Pain, Neck Pain, Neck Mass, Other - Cardiovascular Cardiovascular: absent: As Per HPI, Acrocyanosis, Chest Pain, Chest Pain at Rest , Chest Pain with Activity, Claudication, Diaphoresis, Dyspnea, Dyspnea on Exertion, Edema, Irregular Heart Rhythm, Pain Radiating to Arm/Neck/Jaw, Leg Edema, Leg Ulcers, Lightheadedness, Orthopnea, Palpitations, Paroxysmal Nocturnal Dyspnea, Pedal Edema, Radiating Pain, Rapid Heart Rate, Slow Heart Rate, Syncope, Other - Respiratory Respiratory: absent: As Per HPI, Cough, Dyspnea, Hemoptysis, Dyspnea on Exertion , Wheezing, Snoring, Stridor, Pain on Inspiration, Chest Congestion, Excessive Mucous Production, Change in Mucous Color, Pain with Coughing, Other - Gastrointestinal Gastrointestinal: absent: As Per HPI, Abdominal Pain, Belching, Bloating, Change in Bowel Habits, Change in Stool Character, Coffee Ground Emesis, Constipation, Cramping, Diarrhea, Dyspepsia, Dysphagia, Early Satiety, Excessive Flatus, Fecal Incontinence, Heartburn, Hematemesis, Hematochezia, Loose Stools, Melena, Nausea, Odynophagia, Temesmus, Vomiting, Other - Genitourinary Genitourinary: absent: As Per HPI, Change in Urinary Stream, Difficulty Urinating, Dysuria, Flank Pain, Hematuria, Pyuria, Nocturia, Urinary Incontinence, Urinary Frequency, Urinary Hesitance, Urinary Urgency, Voiding Freq/Small Amts, Freq UTI, Hx Renal/Bladder Calculi, Hx /Renal Surgery, Bladder Distension, Other - Musculoskeletal Musculoskeletal: As Per HPI, Radiating Pain into Limb - Integumentary Integumentary: As Per HPI - Neurological Neurological: absent: As Per HPI, Abnormal Gait, Abnormal Hearing, Abnormal Movements, Abnormal Speech, Behavioral Changes, Burning Sensations, Confusion, Convulsions, Disequilibrium, Dizziness, Numbness, Focal Weakness, Frequent Falls , Headaches, Lack of Coordination, Loss of Vision, Memory Loss, Paresthesias, Radicular Pain, Restless Legs, Sensory Deficit, Syncope, Tingling, Tremor, Vertigo, Weakness, Other Visual Disturbances, Other - Psychiatric Psychiatric: absent: As Per HPI, Abnormal Sleep Pattern, Anhedonia, Anxiety, Auditory Hallucinations, Behavioral Changes, Change in Appetite, Change in Libido, Confusion, Depression, Difficulty Concentrating, Hallucinations, Homicidal Ideation, Hopelessness, Irritability, Memory Loss, Mood Swings, Panic Attacks, Paranoia, Suicidal Ideation, Visual Hallucinations, Tactile Hallucinations, Other - Endocrine Endocrine: absent: As Per HPI, Change in Body Appearance, Change in Libido, Cold Intolorance, Deepening of Voice, Excessive Sweating, Fatigue, Flushing, Heat Intolorance, Increase in Ring/Shoe/Hat Size, Palpitations, Polydipsia, Polyphagia, Polyuria, Other - Hematologic/Lymphatic Hematologic: absent: As Per HPI, Easy Bleeding, Easy Bruising, Lymphadenopathy, Other Past Patient History - Past Medical History & Family History Past Medical History?: Yes - Past Social History Smoking Status: Former Smoker Alcohol: None Drugs: Denies Home Situation {Lives}: Alone - CARDIAC Hx Cardiac Disorders: No - PULMONARY Hx Respiratory Disorders: Yes Hx Asthma: Yes Hx Chronic Obstructive Pulmonary Disease (COPD): Yes Hx Emphysema: Yes Hx Pneumonia: Yes Hx Sleep Apnea: Yes - NEUROLOGICAL Hx Neurological Disorder: No - HEENT Hx HEENT Problems: No Hx Cataracts: No (denies) - RENAL Hx Chronic Kidney Disease: No - ENDOCRINE/METABOLIC Hx Endocrine Disorders: No Hx Diabetes Mellitus Type 2: No - HEMATOLOGICAL/ONCOLOGICAL Hx Blood Disorders: Yes Hx Anemia: Yes Hx Human Immunodeficiency Virus (HIV): No - INTEGUMENTARY Hx Dermatological Problems: No - MUSCULOSKELETAL/RHEUMATOLOGICAL Hx Musculoskeletal Disorders: Yes Hx Arthritis: Yes Hx Falls: No Hx Rheumatoid Arthritis: Yes - GASTROINTESTINAL Hx Gastrointestinal Disorders: Yes Hx Gastroesophageal Reflux: Yes - GENITOURINARY/GYNECOLOGICAL Hx Genitourinary Disorders: No - PSYCHIATRIC Hx Psychophysiologic Disorder: No Hx Substance Use: No - SURGICAL HISTORY Hx Surgeries: Yes Hx Coronary Stent: Yes (x 1 done 2 mos ago) - ANESTHESIA Hx Anesthesia: Yes Hx Anesthesia Reactions: No Hx Malignant Hyperthermia: No Meds Home Medications: Home Medication List Medication Instructions Recorded Confirmed Type Ciprofloxacin [Cipro] 500 mg PO BID #14 tab 07/11/16 Rx Pantoprazole [Protonix EC Tab] 40 mg PO DAILY #30 ect 07/11/16 Rx predniSONE [predniSONE Tab] 5 mg PO DAILY #42 tab 07/11/16 Rx Allergies/Adverse Reactions: Allergies Allergy/AdvReac Type Severity Reaction Status Date / Time No Known Allergies Allergy Verified 06/30/16 09:55 - Medications Medications: Current Medications Albuterol/Ipratropium (Duoneb 3 Mg/0.5 Mg (3 Ml) Ud) 3 ml INH RQ4 [facility] Last Admin: 07/11/16 11:06 Dose: 3 ml Aspirin (Ecotrin) 81 mg PO DAILY [facility] Last Admin: 07/11/16 09:35 Dose: 81 mg Atorvastatin Calcium (Lipitor) 40 mg PO HS [facility] Last Admin: 07/10/16 21:15 Dose: 40 mg Cholecalciferol (Vitamin D) 5,000 iu PO DAILY [facility] Last Admin: 07/11/16 09:33 Dose: 5,000 iu Enoxaparin Sodium (Lovenox) 40 mg SC DAILY [facility] PRN Reason: Protocol Last Admin: 07/11/16 09:31 Dose: Not Given Folic Acid (Folic Acid) 1 mg PO DAILY [facility] Last Admin: 07/11/16 09:34 Dose: 1 mg Furosemide (Lasix) 40 mg PO DAILY [facility] Guaifenesin (Mucinex La) 600 mg PO Q12 [facility] Last Admin: 07/11/16 09:34 Dose: 600 mg Hydroxychloroquine Sulfate (Plaquenil) 400 mg PO DAILY [facility] Last Admin: 07/11/16 09:34 Dose: 400 mg Cefepime HCl 1 gm/ Sodium (Chloride) 100 mls @ 100 mls/hr IVPB Q12 [facility] Last Admin: 07/11/16 09:33 Dose: 100 mls/hr Vancomycin HCl 1 gm/ Sodium (Chloride) 250 mls @ 166.667 mls/hr IVPB Q12@0500, 1700 [facility] Last Admin: 07/11/16 05:05 Dose: 166.667 mls/hr Methylprednisolone 30 mg/ (Sodium Chloride) 50 mls @ 100 mls/hr IVPB Q12 [facility] Last Admin: 07/11/16 09:33 Dose: 100 mls/hr Methotrexate (Methotrexate) 15 mg PO SUN [facility] PRN Reason: Protocol Metoprolol Succinate (Toprol Xl) 50 mg PO DAILY [facility] Last Admin: 07/11/16 09:40 Dose: Not Given Pantoprazole Sodium (Protonix Ec Tab) 40 mg PO DAILY [facility] Last Admin: 07/11/16 09:34 Dose: 40 mg Promethazine HCl/Codeine (Phenergan/Codeine Oral Syrup) 10 ml PO Q4 PRN PRN Reason: Cough Tamsulosin HCl (Flomax) 0.4 mg PO HS [facility] Last Admin: 07/10/16 21:15 Dose: 0.4 mg Zolpidem Tartrate (Ambien) 5 mg PO [facility] Last Admin: 07/10/16 22:45 Dose: 5 mg Physical Exam - Constitutional Appears: Non-toxic, Chronically Ill - Head Exam Head Exam: NORMOCEPHALIC - Eye Exam Eye Exam: PERRL. absent: Scleral icterus - ENT Exam ENT Exam: Mucous Membranes Dry - Neck Exam Neck exam: Negative for: Lymphadenopathy, Thyromegaly - Respiratory Exam Respiratory Exam: Decreased Breath Sounds, Rhonchi - Cardiovascular Exam Cardiovascular Exam: Tachycardia, REGULAR RHYTHM, +S1, +S2 - GI/Abdominal Exam GI & Abdominal Exam: Diminished Bowel Sounds, Soft. absent: Tenderness - Rectal Exam Rectal Exam: Deferred - Exam Exam: NORMAL INSPECTION - Extremities Exam Extremities exam: Negative for: calf tenderness, pedal edema - Back Exam Back exam: absent: CVA tenderness (L), CVA tenderness (R) - Neurological Exam Neurological exam: Alert, CN II-XII Intact, Oriented x3, Reflexes Normal - Psychiatric Exam Psychiatric exam: Normal Mood - Skin Skin Exam: Dry, Intact Results - Vital Signs Recent Vital Signs: Last Vital Signs Temp 98.4 F 07/11/16 08:28 Pulse 77 07/11/16 08:28 Resp 20 07/11/16 08:28 BP 148/94 H 07/11/16 08:28 Pulse Ox 96 07/11/16 08:28 - Labs Result Diagrams: 07/10/16 06:10 07/10/16 06:10 Assessment & Plan (1) COPD exacerbation Status: Acute Priority: High (2) Healthcare-associated pneumonia Status: Acute (3) CAD (coronary artery disease) Status: Chronic Priority: Medium (4) Chest pain Status: Acute - Assessment and Plan (Free Text) Assessment: leukocytosis likely from steroids cont antibiotics for now
--- NOTE | 2016-07-11 13:15 | US ---
Left upper extremity venous Doppler dated 07/10/2016. History: Left upper extremity swelling. Rule out DVT. Duplex interrogation of the deep veins left upper extremity performed on in standard fashion. No prior study available comparison. Findings: The visualized deep veins of the left upper extremity including internal jugular vein exhibit normal flow, compressibility augmentation without evidence of DVT Impression: No evidence of DVT seen within the visualized deep veins left upper extremity including the left internal jugular vein.
--- NOTE | 2016-07-11 18:07 | CP.PCM.PN ---
Subjective - Date & Time of Evaluation Date of Evaluation: 07/11/16 Time of Evaluation: 13:00 - Subjective Subjective: F/U COPD Exacerbation. Pt with no cough, no SOB, no chest congestion, L arm ni tenderness Objective - Vital Signs/Intake and Output Vital Signs (last 24 hours): Temp Pulse Resp BP Pulse Ox 98.4 F 77 20 148/94 H 96 07/11/16 08:28 07/11/16 08:28 07/11/16 08:28 07/11/16 08:28 07/11/16 08:28 - Labs Labs: 07/10/16 06:10 07/10/16 06:10 PT 11.1 SECONDS (9.6-11.2) 07/07/16 07:10 INR 1.07 (0.92-1.08) 07/07/16 07:10 APTT 24.3 SECONDS (23.3-32.5) 07/07/16 07:10 - Constitutional Appears: No Acute Distress - Head Exam Additional comments: Cushinoid face - Eye Exam Eye Exam: PERRL - ENT Exam ENT Exam: Normal Oropharynx - Neck Exam Neck Exam: Normal Inspection - Respiratory Exam Respiratory Exam: Decreased Breath Sounds (at bases) - Cardiovascular Exam Cardiovascular Exam: REGULAR RHYTHM - GI/Abdominal Exam GI & Abdominal Exam: Soft, Normal Bowel Sounds - Extremities Exam Additional comments: L arm minimal swelling, no redness, no tenderness. - Back Exam Back Exam: NORMAL INSPECTION - Neurological Exam Neurological Exam: Alert, Oriented x3. absent: Motor Sensory Deficit - Psychiatric Exam Psychiatric exam: Normal Mood - Skin Skin Exam: Warm Assessment and Plan (1) COPD exacerbation Status: Acute (2) RA (rheumatoid arthritis) Status: Chronic (3) CAD (coronary artery disease) Status: Chronic - Assessment and Plan (Free Text) Plan: L arm swelling 2nd to IV infiltration, no infection, no myositis, venous Doppler L arm no DVT, Leukocytosis 2nd to Steroids, Pt improved and stable to be discharged, f/u in my office in one week.
== END 2016-07-11 15:38 | disposition home or self-care (01) | DRG 190 ==
LOC: H.ER 14:34 → H.ERHOLD 18:17 → H.MEDSURG1 22:21
PROVIDERS: ADMIT Internal Medicine Pulmonary Disease; ATTEND Internal Medicine Pulmonary Disease
DX: J44.0 Chronic obstructive pulmonary disease with (acute) lower respiratory infection (principal); J18.9 Pneumonia, unspecified organism; J44.1 Chronic obstructive pulmonary disease with (acute) exacerbation; Y95 Nosocomial condition; M06.9 Rheumatoid arthritis, unspecified; I10 Essential (primary) hypertension; I25.10 Atherosclerotic heart disease of native coronary artery without angina pectoris; J45.909 Unspecified asthma, uncomplicated; Z87.891 Personal history of nicotine dependence

== ENCOUNTER 2016-07-16 07:39 | Inpatient (IN) | payer MEDICARE, MEDICAID ==
[2016-07-16 07:44] VITALS: BMI 31.9
[2016-07-16] MEDS ORDERED: Sodium Chloride 0.9% 1,000 ML IV STA (08:21)
[2016-07-16 08:35] LABS: BASO # 0.1 K/uL (0.0-0.2); BASO % 0.2 % (0.0-2.0); EOS # 0.1 K/uL (0.0-0.7); EOS % 0.2 % (0.0-4.0); HEMATOCRIT 44.5 % (35.0-51.0); LYMPH # 4.4 K/uL (1.0-4.3); LYMPH % 15.1 % (20.0-40.0); MEAN CELL VOLUME 92.5 fl (80.0-94.0); MEAN CORPUSCULAR HEMOGLOBIN 30.2 pg (27.0-31.0); MEAN CORPUSCULAR HGB CONC 32.7 g/dL (33.0-37.0); MEAN PLATELET VOLUME 9.1 fl (7.2-11.7); MONO # 1.4 K/uL (0.0-0.8); MONO % 4.8 % (0.0-10.0); NEUT # 23.1 K/uL (1.8-7.0); NEUT % 79.7 % (50.0-75.0)
--- NOTE | 2016-07-16 08:40 | ED PDOC ---
Syncope/Near Syncope/Dizzyness Time Seen by Provider: 07/16/16 07:59 Chief Complaint (Nursing): Dizziness/Lightheaded Chief Complaint (Provider): Dizziness/Lightheaded History Per: Patient History/Exam Limitations: no limitations Onset/Duration Of Symptoms: Days Current Symptoms Are (Timing): Still Present Associated Symptoms Preceding Syncopal Episode: No Predromal Symptoms (Sudden Onset) Seizure Or Post-ictal Symptoms: None Fall Associated With With Symptoms: No Additional Complaint(s): 70 y/o male presenting to the ED with dizziness. Patient was admitted to [facility] with pneumonia and discharged 6 days ago. PT states he has been dizzy daily since he was discharged last week. Patient has a past medical history of low blood pressure, COPD and arthritis. - Symptoms Of CVA Recent Head Trauma: No Past Medical History Reviewed: Historical Data, Nursing Documentation, Vital Signs Vital Signs: Last Vital Signs Temp 98 F 07/16/16 07:42 Pulse 103 H 07/16/16 07:42 Resp BP 91/70 L 07/16/16 07:42 Pulse Ox 97 07/16/16 07:42 - Medical History PMH: Anemia, Arthritis, Asthma, CAD, COPD, Emphysema, HTN, Hypercholesterolemia , Pneumonia, Rheumatoid Arthritis, Sleep Apnea Denies: HIV, Chronic Kidney Disease - Surgical History Surgical History: Coronary Stent (x 1 done 2 mos ago) Other surgeries: Partial Spleenectomy - Family History Family History: States: [place], Hypertension - Social History Current smoker - smoking cessation education provided: No Ex-Smoker (has not smoked in the last 12 months): No - Home Medications Home Medications: Ambulatory Orders Medication Instructions Recorded Folic Acid 1 mg PO DAILY 01/09/16 Metoprolol Succinate [Toprol XL] 50 mg PO DAILY 01/09/16 Tamsulosin [Flomax] 0.4 mg PO HS 01/09/16 Aspirin [Ecotrin] 81 mg PO DAILY 02/19/16 Atorvastatin [Lipitor] 40 mg PO HS 04/21/16 Cholecalciferol (Vitamin D3) 5,000 unit PO DAILY 04/21/16 [Vitamin D3] Furosemide [Lasix] 40 mg PO DAILY 04/21/16 Promethazine/Codeine 10 ml PO Q6 PRN #0 udc 04/24/16 [Phenergan/Codeine Oral Syrup] guaiFENesin [Mucinex LA] 600 mg PO Q12 30 Days 05/03/16 Fluticasone/Salmeterol 500/50 1 puff IH Q12 05/29/16 [Advair Diskus 500/50] Hydroxychloroquine Sulfate 400 mg PO DAILY #30 tablet 06/05/16 [Plaquenil] Methotrexate 15 mg PO QWK #30 tab 06/05/16 Albuterol 0.083% [Albuterol 0.083% 2.5 mg IH Q4 PRN #20 neb 06/30/16 Inhal Maddy (2.5 mg/3 ml) UD] Ciprofloxacin [Cipro] 500 mg PO BID #14 tab 07/11/16 Pantoprazole [Protonix EC Tab] 40 mg PO DAILY #30 ect 07/11/16 predniSONE [predniSONE Tab] 5 mg PO DAILY #42 tab 07/11/16 - Allergies Allergies/Adverse Reactions: Allergies Allergy/AdvReac Type Severity Reaction Status Date / Time No Known Allergies Allergy Verified 07/16/16 07:47 Review of Systems ROS Statement: Except As Marked, All Systems Reviewed And Found Negative Cardiovascular: Negative for: Chest Pain, Palpitations Respiratory: Positive for: SOB with Exertion. Negative for: Shortness of Breath Gastrointestinal: Negative for: Nausea Neurological: Positive for: Dizziness. Negative for: Weakness, Numbness, Headache Physical Exam - Reviewed Nursing Documentation Reviewed: Yes Vital Signs Reviewed: Yes - Physical Exam Appears: Positive for: Non-toxic, No Acute Distress Head Exam: Positive for: ATRAUMATIC, NORMAL INSPECTION, NORMOCEPHALIC Skin: Positive for: Normal Color, Warm Eye Exam: Positive for: Normal appearance, PERRL Neck: Positive for: Normal, Painless ROM, Supple Cardiovascular/Chest: Positive for: Regular Rate, Rhythm, Chest Non Tender. Negative for: Edema Respiratory: Positive for: Wheezing (HIGHPITCHED , PROLONGED EXHALATION). Negative for: Accessory Muscle Use, Respiratory Distress Extremity: Positive for: Normal ROM. Negative for: Tenderness, Pedal Edema, Calf Tenderness Neurologic/Psych: Positive for: Alert, Oriented. Negative for: Motor/Sensory Deficits - Laboratory Results Result Diagrams: 07/16/16 08:10 07/16/16 08:10 - ECG ECG: Positive for: Interpreted By Me ECG Rhythm: Positive for: Sinus Rhythm. Negative for: ST/T Changes Rate: 96 O2 Sat by Pulse Oximetry: 97 (RA) Pulse Ox Interpretation: Normal Medical Decision Making Medical Decision Making: Time: 819 Initial impression: Dizziness Initial plan: --Head CT --EKG --CMMP --TROPONIN I --ED URINE DIPSTICK --EKG-ED --CHEST TWO VIEWS --SODIUM CHORIDE 1,000 ML --IV INSERTION 9.[address] Son re: chest x-ray finding. Asked for CT chest to be done prior to dispo. Time: 1000 PROCEDURE: CT HEAD WITHOUT CONTRAST. HISTORY: Dizziness for one week COMPARISON: None available. TECHNIQUE: Axial computed tomography images were obtained through the head/brain without intravenous contrast. Radiation dose: Total exam DLP = 823.25 mGy-cm. This CT exam was performed using one or more of the following dose reduction techniques: Automated exposure control, adjustment of the mA and/or kV according to patient size, and/or use of iterative reconstruction technique. FINDINGS: HEMORRHAGE: No intracranial hemorrhage. BRAIN: There are mild chronic microangiopathic changes. There is no mass, mass effect or abnormal extra-axial fluid collection. VENTRICLES: There is mild age-related global parenchymal volume loss and proportionate enlargement of the ventricles and cortical sulci. CALVARIUM: The skull base and calvarium are normal. PARANASAL SINUSES: Predominantly clear. MASTOID AIR CELLS: Predominantly clear. OTHER FINDINGS: None. IMPRESSION: No acute intracranial abnormality. Mild chronic microangiopathic changes and mild age-related global parenchymal volume loss. Scribe Attestation: Documented by Ana bull under Rina Villalobos acting as a scribe for Gail Villalobos MD. Provider Scribe Attestation: All medical record entries made by the Scribe were at my direction and personally dictated by me. I have reviewed the chart and agree that the record accurately reflects my personal performance of the history, physical exam, medical decision making, and the department course for this patient. I have also personally directed, reviewed, and agree with the discharge instructions and disposition. 11.15a - CT chest results reviewed with Dr. Son - to admit patient for persistent dizziness, low blood pressure, and dyspnea on exertion Disposition - Clinical Impression Clinical Impression: Severe dizziness, Low BP, Dyspnea on exertion - Patient ED Disposition Is Patient to be Admitted: Yes Doctor Will See Patient In The: Hospital - Disposition Disposition: Transfer of Care Disposition Time: :15 Condition: FAIR - Pt Status Changed To: Hospital Disposition Of: Observation - POA Present On Arrival: None
[2016-07-16 08:58] LABS: ALB/GLOB RATIO 1.4 (1.0-2.1); ALKALINE PHOSPHATASE 60 U/L (38-126); ALT/SGPT 56 U/L (21-72); AST/SGOT 23 U/L (17-59); BILIRUBIN,TOTAL 0.5 mg/dl (0.2-1.3); BLOOD UREA NITROGEN 27 mg/dl (9-20); CALCIUM 9.6 mg/dL (8.4-10.2); CARBON DIOXIDE 28 mmol/L (22-30); CHLORIDE 96 mmol/L (98-107); GFR AFRICAN-AMERICAN > 60; GLUCOSE,RANDOM 87 mg/dL (75-110); POTASSIUM 4.2 MMOL/L (3.6-5.0); SODIUM 135 mmol/l (132-148); TOTAL PROTEIN 6.7 G/DL (6.3-8.2)
--- NOTE | 2016-07-16 08:59 | CT ---
PROCEDURE: CT HEAD WITHOUT CONTRAST. HISTORY: Dizziness for one week COMPARISON: None available. TECHNIQUE: Axial computed tomography images were obtained through the head/brain without intravenous contrast. Radiation dose: Total exam DLP = 823.25 mGy-cm. This CT exam was performed using one or more of the following dose reduction techniques: Automated exposure control, adjustment of the mA and/or kV according to patient size, and/or use of iterative reconstruction technique. FINDINGS: HEMORRHAGE: No intracranial hemorrhage. BRAIN: There are mild chronic microangiopathic changes. There is no mass, mass effect or abnormal extra-axial fluid collection. VENTRICLES: There is mild age-related global parenchymal volume loss and proportionate enlargement of the ventricles and cortical sulci. CALVARIUM: The skull base and calvarium are normal. PARANASAL SINUSES: Predominantly clear. MASTOID AIR CELLS: Predominantly clear. OTHER FINDINGS: None. IMPRESSION: No acute intracranial abnormality. Mild chronic microangiopathic changes and mild age-related global parenchymal volume loss.
[2016-07-16] MEDS ORDERED: Albuterol-Ipratrop 3 mg / 0.5 (3 ml) UD INH STA (09:32)
--- NOTE | 2016-07-16 10:21 | RAD ---
HISTORY: dizziness COMPARISON: No prior. TECHNIQUE: Chest PA and lateral FINDINGS: LUNGS: No active pulmonary disease. PLEURA: No significant pleural effusion identified. No pneumothorax apparent. CARDIOVASCULAR: Normal. OSSEOUS STRUCTURES: No significant abnormalities. VISUALIZED UPPER ABDOMEN: Normal. OTHER FINDINGS: None. IMPRESSION: No active disease.
--- NOTE | 2016-07-16 10:38 | CARD ---
APPROVED REPORT EKG Measurement Heart [id number] <Conclusion> Normal sinus rhythm Normal ECG
--- NOTE | 2016-07-16 11:14 | CT ---
PROCEDURE: CT Chest without contrast HISTORY: fluid collection on lateral view of x-ray today, COMPARISON: None. TECHNIQUE: Contiguous axial images were obtained through the chest without intravenous contrast enhancement. Sagittal and coronal reconstructions were performed. Radiation dose (DLP): mGy-cm. This CT exam was performed using one or more of the following dose reduction techniques: Automated exposure control, adjustment of the mA and/or kV according to patient size, and/or use of iterative reconstruction technique. FINDINGS: LUNGS: Bilateral chronic interstitial fibrotic changes are noted with subpleural cyst formation. Minimal dependent atelectasis is noted at the right base. MEDIASTINUM: Unremarkable thoracic aorta. No aneurysm. Normal sized heart. There is a small pericardial effusion. Coronary artery calcifications are observed. Main pulmonary artery unremarkable. No vascular congestion. No lymphadenopathy. PLEURA: No pleural fluid. No pneumothorax. BONES: No fracture. No destructive lesion. UPPER ABDOMEN: Grossly unremarkable. OTHER FINDINGS: None. IMPRESSION: Chronic interstitial changes with minimal dependent atelectasis at the right base. Small pericardial effusion. No pleural effusion.
--- NOTE | 2016-07-16 14:37 | CON ---
DATE: 07/16/2016 CHIEF COMPLAINT: Dizziness. HISTORY OF PRESENT ILLNESS: A 70-year-old man with past medical history of hypertension, dyslipidemi a, history of partial splenectomy, coronary artery disease, status post stent, emphysema, hypercholes terolemia, pneumonia, rheumatoid arthritis on methotrexate, sleep apnea, who presented to the [facility] with dizziness, dizziness in terms of lightheadedness and with occasional spinning sensation, but olamide mendez mentions that he was recently discharged for pneumonia 6 days ago and has been dizzy since and ligh theaded. His systolic and diastolic blood pressures are systolically low at 91/70, which is low for him. CT head showed no acute intracranial abnormalities, just global volume loss and chronic ischemi c changes. He had a CAT scan of his chest, which showed chronic interstitial lung disease with small pericardial effusion. Currently, he is moving all extremities. PAST MEDICAL HISTORY: History of arthritis, anemia, asthma, COPD, emphysema, hypercholesterolemia, p neumonia, rheumatoid arthritis, sleep apnea. SOCIAL HISTORY: No illicit drug use, smoking, or ETOH abuse. Former smoker. PAST SURGICAL HISTORY: Coronary artery stent x 1, history of partial splenectomy. MEDICATIONS: Reviewed via nurse's reconciliation sheet. REVIEW OF SYSTEMS: A 14-point review of systems is negative except for the HPI. FAMILY HISTORY: Noncontributory. ALLERGIES: No known drug allergies. PHYSICAL EXAMINATION: VITAL SIGNS: Temperature 98, pulse rate of 78, blood pressure 91/70, respiratory rate of 16, oxygen saturation 97% on room air. GENERAL: The patient is sitting up in bed in no acute distress. HEENT: Atraumatic, normocephalic. PERRLA. Extraocular muscles intact. NECK: Supple, no JVD, no adenopathy noted. LUNGS: Clear to auscultation. No adventitious sounds. HEART: S1, S2, normal rate and rhythm. No murmurs, rubs, or gallops. ABDOMEN: Soft, nontender, nondistended. Bowel sounds are present. EXTREMITIES: No clubbing, no cyanosis. Peripheral pulses 2+ felt bilaterally. NEUROLOGIC: The patient is alert, oriented to person, place, month and year. Speech is fluent, with out any errors. Cranial nerves II through XII are intact. MOTOR: Moves all extremities equally. No pronator drift seen. SENSORY: Light touch, pinprick, proprioception, vibration intact. DTRs are 1+ throughout. COORDINATION: [id number] intact. GAIT: Deferred for now. LABORATORY DATA: Sodium is 135, potassium 4.2, chloride 96, carbon dioxide 28, BUN of 27, creatinine at 1. Random glucose 87. WBC is 29, hemoglobin 14.5, hematocrit 44.5, platelet count 331. ASSESSMENT AND PLAN: A 70-year-old man with history of chronic obstructive pulmonary disease, sleep apnea, hypertension, dyslipidemia, coronary artery disease, emphysema, rheumatoid arthritis, anemia, who presented recently after having pneumonia, was discharged 6 days ago, complained of dizziness in terms of lightheadedness ever since. He has some shortness of breath and dyspnea on exertion as well as low systolic and diastolic blood pressures. His dizziness is likely secondary to transient cereb ral hypoperfusion to the brain given that he has low systolic and diastolic blood pressures, superimp osed underlying pneumonia and his underlying chronic obstructive pulmonary disease given his dyspnea on exertion. At this time, recommend: 1. Hydrate the patient. 2. Keep his blood pressure between 120 and 130 mmHg. 3. Superimposed dyspnea on exertion. At this time, he is slightly dehydrated as well. Monitor his electrolytes and continue with aspirin 81 mg for stroke prevention as well as his atorvastatin, Lipit or 40 mg for dyslipidemia. 4. Continue his methotrexate and Plaquenil for his rheumatoid arthritis. 5. Continue his antibiotics in regards to his recent pneumonia. 6. Recommend CPAP for his underlying sleep apnea and to be judicious and get physical therapy evalua tion. No further neurological workup needed at this time. Will sign off. Raj Bianchi MD cc: [id number] TT: 07/16/2016 14:36:35 Confirmation # [id number] Dictation # [id number] betty
--- NOTE | 2016-07-16 15:34 | CP.PCM.HP ---
History of Present Illness - History of Present Illness History of Present Illness: CC Dizziness. 70 y/o M, brought to ER [facility], [place] for evaluation of increased Dizziness on DOA, onset 6 days [employer] with no relief , associated to lightheadedness. Worsening symptoms: Mild SOB associated to cough, non productive, GREEN, Low BP 91/70. Aggravated factor: Multiple admission for COPD. Pt with recent admission to [facility] Tx for COPD Exacerbation discharged in stable condition on 07/12/16. On evaluation in the ER, Pt referred to have new onset of dizziness/ lightheaded for everyday since he was discharge from hospital. After evaluation Pt was admitted. Pt denied: Fever, chills, cough, Hemoptysis, CP, Abdominal pain, n/v/d, urinary symptoms, sick contact, No Hx of DVT, PE, Urticaria, Industrial exposure. PMHx: COPD, Emphysema, Asthma, ANDRZEJ, PNA, HTN, Coronary Stent x1, Cardiac Cath , R/A, O/A, Anemia, Singles. Hx of heavy smoker, quit 5 yrs ago. CXR showed: No active disease. Chest CT: Chronic interstitial changes, minimal atelectasis R base, small pericardial effusion. CT Head: No abnormality. Present on Admission - Present on Admission Any Indicators Present on Admission: No Review of Systems - Constitutional Constitutional: Other (lightheaded) - EENT Eyes: Requires Corrective Lenses (Cataract L eye) Ears: Other (negative) Nose/Mouth/Throat: Other (negative) - Cardiovascular Cardiovascular: Lightheadedness - Respiratory Respiratory: Cough, Dyspnea, Dyspnea on Exertion - Gastrointestinal Gastrointestinal: Other (negative) - Genitourinary Genitourinary: Other (negative) - Musculoskeletal Musculoskeletal: Arthralgias - Integumentary Integumentary: Other (negative) - Neurological Neurological: Dizziness - Psychiatric Psychiatric: Anxiety - Endocrine Endocrine: Other (negative) - Hematologic/Lymphatic Hematologic: Other (negative) Past Patient History - Past Medical History & Family History Past Medical History?: Yes Pertinent Family History: HTN, [place] - Past Social History Smoking Status: Former Smoker Alcohol: None Drugs: Denies Home Situation {Lives}: Alone - CARDIAC Hx Cardiac Disorders: Yes Hx Hypercholesterolemia: Yes Hx Hypertension: Yes Other/Comment: CAD- Stent - PULMONARY Hx Respiratory Disorders: Yes Hx Asthma: Yes Hx Chronic Obstructive Pulmonary Disease (COPD): Yes Hx Emphysema: Yes Hx Pneumonia: Yes Hx Sleep Apnea: Yes - NEUROLOGICAL Hx Neurological Disorder: No - HEENT Hx HEENT Problems: No Hx Cataracts: No (denies) - RENAL Hx Chronic Kidney Disease: No - ENDOCRINE/METABOLIC Hx Endocrine Disorders: No Hx Diabetes Mellitus Type 2: No - HEMATOLOGICAL/ONCOLOGICAL Hx Blood Disorders: Yes Hx Anemia: Yes Hx Human Immunodeficiency Virus (HIV): No - INTEGUMENTARY Hx Dermatological Problems: No - MUSCULOSKELETAL/RHEUMATOLOGICAL Hx Musculoskeletal Disorders: Yes Hx Arthritis: Yes Hx Rheumatoid Arthritis: Yes - GASTROINTESTINAL Hx Gastrointestinal Disorders: Yes Hx Gastroesophageal Reflux: Yes - GENITOURINARY/GYNECOLOGICAL Hx Genitourinary Disorders: No - PSYCHIATRIC Hx Psychophysiologic Disorder: Yes Hx Anxiety: Yes Hx Substance Use: No - SURGICAL HISTORY Hx Surgeries: Yes Hx Coronary Stent: Yes (x 1 done 2 mos ago) - ANESTHESIA Hx Anesthesia: Yes Hx Anesthesia Reactions: No Hx Malignant Hyperthermia: No Meds Allergies/Adverse Reactions: Allergies Allergy/AdvReac Type Severity Reaction Status Date / Time No Known Allergies Allergy Verified 07/16/16 07:47 Physical Exam - Constitutional Appears: No Acute Distress - Head Exam Head Exam: NORMAL INSPECTION - Eye Exam Eye Exam: PERRL - ENT Exam ENT Exam: Normal Oropharynx - Neck Exam Neck exam: Positive for: Normal Inspection - Respiratory Exam Respiratory Exam: Decreased Breath Sounds (at bases), Wheezes - Cardiovascular Exam Cardiovascular Exam: REGULAR RHYTHM Additional comments: Patient has a Holter Monitor from the Cardiology's office as out Patient - GI/Abdominal Exam GI & Abdominal Exam: Normal Bowel Sounds, Soft - Extremities Exam Extremities exam: Positive for: normal inspection - Back Exam Back exam: NORMAL INSPECTION - Neurological Exam Neurological exam: Alert, Oriented x3 Additional comments: No motor sensory deficit. - Psychiatric Exam Psychiatric exam: Anxious - Skin Skin Exam: Warm Results - Vital Signs Recent Vital Signs: Last Vital Signs Temp 97.8 F 07/16/16 12:30 Pulse 85 07/16/16 12:30 Resp 20 07/16/16 12:30 BP 129/64 07/16/16 12:30 Pulse Ox 99 07/16/16 12:30 reviewed J.PJose Manuel - Labs Result Diagrams: 07/17/16 06:00 07/17/16 06:00 Assessment & Plan (1) Severe dizziness Status: Acute Priority: High (2) Light-headedness Status: Acute Priority: High (3) COPD (chronic obstructive pulmonary disease) Status: Chronic Priority: High (4) RA (rheumatoid arthritis) Status: Chronic Priority: High (5) CAD (coronary artery disease) Status: Chronic Comment: Stent - Assessment and Plan (Free Text) Plan: F/U EGG. Brain MRI. Continue Cipro, Albuterol Tx, Pulmicort, Fluid IV, Meclizine , Xanax, Percocet 5/325, Phenergan with Co and rest of Tx. Neurology consult appreciated, f/u Cardiology consult. - Date & Time Date: 07/16/16 Time: 12:00
[2016-07-16] MEDS ORDERED: Oxycodone/Acetaminophen 5/325 mg Tab PO PRN (15:57)
[2016-07-16] MEDS ORDERED: Promethazine/Cod 6.25mg-10mg/5ml Syr UD PO PRN (15:57)
[2016-07-16] MEDS: Sodium Chloride 0.9% 1,000 ML IV SCH (17:30)
[2016-07-16] MEDS: Albuterol 0.083% Inhal Sol (2.5 mg/3 mL) UD INH SCH (19:23)
[2016-07-16] MEDS: Budesonide 0.25 mg/2 ml Inhal Susp UD INH SCH ×2 (19:23→19:24)
[2016-07-17] MEDS: Albuterol 0.083% Inhal Sol (2.5 mg/3 mL) UD INH SCH ×6 (00:47→19:27)
[2016-07-17 06:40] LABS: BASO # 0.1 K/uL (0.0-0.2); BASO % 0.3 % (0.0-2.0); EOS # 0.1 K/uL (0.0-0.7); EOS % 0.6 % (0.0-4.0); HEMATOCRIT 39.8 % (35.0-51.0); LYMPH # 5.5 K/uL (1.0-4.3); MEAN CORPUSCULAR HEMOGLOBIN 30.4 pg (27.0-31.0); MEAN PLATELET VOLUME 9.2 fl (7.2-11.7); MONO # 1.5 K/uL (0.0-0.8); MONO % 6.5 % (0.0-10.0); NEUT # 15.6 K/uL (1.8-7.0); NEUT % 68.6 % (50.0-75.0); RED CELL DISTRIBUTION WIDTH 17.8 % (11.5-14.5); WHITE BLOOD COUNT 22.8 K/uL (4.8-10.8)
[2016-07-17] MEDS: Budesonide 0.25 mg/2 ml Inhal Susp UD INH SCH ×2 (07:32→19:26)
[2016-07-17 07:51] LABS: ALB/GLOB RATIO 1.3 (1.0-2.1); ALKALINE PHOSPHATASE 55 U/L (38-126); ALT/SGPT 48 U/L (21-72); AST/SGOT 35 U/L (17-59); BILIRUBIN,TOTAL 0.5 mg/dl (0.2-1.3); BLOOD UREA NITROGEN 21 mg/dl (9-20); CALCIUM 8.8 mg/dL (8.4-10.2); CARBON DIOXIDE 27 mmol/L (22-30); CHLORIDE 103 mmol/L (98-107); GFR AFRICAN-AMERICAN > 60; GLUCOSE,RANDOM 77 mg/dL (75-110); POTASSIUM 3.8 MMOL/L (3.6-5.0); SODIUM 138 mmol/l (132-148); TOTAL PROTEIN 5.6 G/DL (6.3-8.2)
--- NOTE | 2016-07-17 08:02 | CP.PCM.CON ---
History of Present Illness - History of Present Illness History of Present Illness: I was sked to see patient by Dr Son. Patient is a 70 year old male with a history of HTN, CAD s/p stent LAD, hyperchoelsterolemia who presents with dizziness. The patient previously complained of palpitations for which he was wearing a Holter monitor. He developed dizziness while sitting and presented to [facility]. He denied palpitations during this visit. Review of Systems - Constitutional Constitutional: absent: As Per HPI, Anorexia, Chills, Daytime Sleepiness, Excessive Sweating, Fatigue, Fever, Frequent Falls, Headache, Increased Appetite , Lethargy, Malaise, Night Sweats, Snoring, Sleep Apnea, Weight Gain, Weight Loss, Weakness, Other - EENT Eyes: absent: As Per HPI, Blind Spots, Blurred Vision, Change in Vision, Decreased Night Vision, Diplopia, Discharge, Dry Eye, Exophthalmos, Floaters, Irritation, Itchy Eyes, Loss of Peripheral Vision, Pain, Photophobia, Requires Corrective Lenses, Sees Flashes, Spots in Vision, Tunnel Vision, Other Visual Disturbances, Loss of Vision, Other Ears: Dizziness Nose/Mouth/Throat: absent: As Per HPI, Epistaxis, Nasal Congestion, Nasal Discharge, Nasal Obstruction, Nasal Trauma, Nose Pain, Post Nasal Drip, Sinus Pain, Sinus Pressure, Bleeding Gums, Change in Voice, Dental Pain, Dry Mouth, Dysphagia, Halitosis, Hoarsness, Lip Swelling, Mouth Lesions, Mouth Pain, Odynophagia, Sore Throat, Throat Swelling, Tongue Swelling, Facial Pain, Neck Pain, Neck Mass, Other - Cardiovascular Cardiovascular: absent: As Per HPI, Acrocyanosis, Chest Pain, Chest Pain at Rest , Chest Pain with Activity, Claudication, Diaphoresis, Dyspnea, Dyspnea on Exertion, Edema, Irregular Heart Rhythm, Pain Radiating to Arm/Neck/Jaw, Leg Edema, Leg Ulcers, Lightheadedness, Orthopnea, Palpitations, Paroxysmal Nocturnal Dyspnea, Pedal Edema, Radiating Pain, Rapid Heart Rate, Slow Heart Rate, Syncope, Other - Respiratory Respiratory: absent: As Per HPI, Cough, Dyspnea, Hemoptysis, Dyspnea on Exertion , Wheezing, Snoring, Stridor, Pain on Inspiration, Chest Congestion, Excessive Mucous Production, Change in Mucous Color, Pain with Coughing, Other - Gastrointestinal Gastrointestinal: absent: As Per HPI, Abdominal Pain, Belching, Bloating, Change in Bowel Habits, Change in Stool Character, Coffee Ground Emesis, Constipation, Cramping, Diarrhea, Dyspepsia, Dysphagia, Early Satiety, Excessive Flatus, Fecal Incontinence, Heartburn, Hematemesis, Hematochezia, Loose Stools, Melena, Nausea, Odynophagia, Temesmus, Vomiting, Other - Genitourinary Genitourinary: absent: As Per HPI, Change in Urinary Stream, Difficulty Urinating, Dysuria, Flank Pain, Hematuria, Pyuria, Nocturia, Urinary Incontinence, Urinary Frequency, Urinary Hesitance, Urinary Urgency, Voiding Freq/Small Amts, Freq UTI, Hx Renal/Bladder Calculi, Hx /Renal Surgery, Bladder Distension, Other - Musculoskeletal Musculoskeletal: absent: As Per HPI, Abnormal Gait, Arthralgias, Atrophy, Back Pain, Deformity, Joint Swelling, Limited Range of Motion, Loss of Height, Muscle Cramps, Muscle Weakness, Myalgias, Neck Pain, Numbness, Radiating Pain into Limb, Stiffness, Tingling, Other - Integumentary Integumentary: absent: As Per HPI, Acne, Alopecia, Bleeding Lesions, Change in Hair, Change in Nails, Change in Pigmentation, Changing Lesions, Dry Skin, Erythema, Furuncle, Hirsutism, Lesions, New Lesions, Non-Healing Lesions, Photosensitivity, Pruritus, Rash, Skin Pain, Skin Ulcer, Sores, Striae, Swelling , Unusual Bruising, Wounds, Jaundice, Other - Neurological Neurological: absent: As Per HPI, Abnormal Gait, Abnormal Hearing, Abnormal Movements, Abnormal Speech, Behavioral Changes, Burning Sensations, Confusion, Convulsions, Disequilibrium, Dizziness, Numbness, Focal Weakness, Frequent Falls , Headaches, Lack of Coordination, Loss of Vision, Memory Loss, Paresthesias, Radicular Pain, Restless Legs, Sensory Deficit, Syncope, Tingling, Tremor, Vertigo, Weakness, Other Visual Disturbances, Other - Psychiatric Psychiatric: absent: As Per HPI, Abnormal Sleep Pattern, Anhedonia, Anxiety, Auditory Hallucinations, Behavioral Changes, Change in Appetite, Change in Libido, Confusion, Depression, Difficulty Concentrating, Hallucinations, Homicidal Ideation, Hopelessness, Irritability, Memory Loss, Mood Swings, Panic Attacks, Paranoia, Suicidal Ideation, Visual Hallucinations, Tactile Hallucinations, Other - Endocrine Endocrine: absent: As Per HPI, Change in Body Appearance, Change in Libido, Cold Intolorance, Deepening of Voice, Excessive Sweating, Fatigue, Flushing, Heat Intolorance, Increase in Ring/Shoe/Hat Size, Palpitations, Polydipsia, Polyphagia, Polyuria, Other - Hematologic/Lymphatic Hematologic: absent: As Per HPI, Easy Bleeding, Easy Bruising, Lymphadenopathy, Other Past Patient History - Past Medical History & Family History Past Medical History?: Yes - Past Social History Smoking Status: Former Smoker Alcohol: None Drugs: Denies Home Situation {Lives}: Alone - CARDIAC Hx Cardiac Disorders: Yes Hx Hypercholesterolemia: Yes Hx Hypertension: Yes - PULMONARY Hx Respiratory Disorders: Yes Hx Asthma: Yes Hx Chronic Obstructive Pulmonary Disease (COPD): Yes Hx Emphysema: Yes Hx Pneumonia: Yes Hx Sleep Apnea: Yes - NEUROLOGICAL Hx Neurological Disorder: No - HEENT Hx HEENT Problems: No Hx Cataracts: No (denies) - RENAL Hx Chronic Kidney Disease: No - ENDOCRINE/METABOLIC Hx Endocrine Disorders: No Hx Diabetes Mellitus Type 2: No - HEMATOLOGICAL/ONCOLOGICAL Hx Blood Disorders: Yes Hx Anemia: Yes Hx Human Immunodeficiency Virus (HIV): No - INTEGUMENTARY Hx Dermatological Problems: No - MUSCULOSKELETAL/RHEUMATOLOGICAL Hx Musculoskeletal Disorders: Yes Hx Arthritis: Yes Hx Rheumatoid Arthritis: Yes - GASTROINTESTINAL Hx Gastrointestinal Disorders: Yes Hx Gastroesophageal Reflux: Yes - GENITOURINARY/GYNECOLOGICAL Hx Genitourinary Disorders: No - PSYCHIATRIC Hx Psychophysiologic Disorder: Yes Hx Anxiety: Yes Hx Substance Use: No - SURGICAL HISTORY Hx Surgeries: Yes Hx Coronary Stent: Yes (x 1 done 2 mos ago) - ANESTHESIA Hx Anesthesia: Yes Hx Anesthesia Reactions: No Hx Malignant Hyperthermia: No Meds Allergies/Adverse Reactions: Allergies Allergy/AdvReac Type Severity Reaction Status Date / Time No Known Allergies Allergy Verified 07/16/16 07:47 - Medications Medications: Current Medications Albuterol Sulfate (Albuterol 0.083% Inhal Maddy (2.5 Mg/3 Ml) Ud) 2.5 mg INH RQ4 [facility] Last Admin: 07/17/16 07:31 Dose: 2.5 mg Alprazolam (Xanax) 0.5 mg PO BID PRN PRN Reason: Anxiety Aspirin (Ecotrin) 81 mg PO DAILY [facility] Atorvastatin Calcium (Lipitor) 40 mg PO HS [facility] Last Admin: 07/16/16 22:56 Dose: 40 mg Budesonide (Pulmicort Respules) 0.5 mg INH RBID [facility] Last Admin: 07/17/16 07:32 Dose: 0.5 mg Cholecalciferol (Vitamin D) 5,000 iu PO DAILY [facility] Ciprofloxacin (Cipro) 500 mg PO BID [facility] Last Admin: 07/16/16 17:23 Dose: 500 mg Folic Acid (Folic Acid) 1 mg PO DAILY [facility] Hydroxychloroquine Sulfate (Plaquenil) 400 mg PO DAILY [facility] Sodium Chloride (Sodium Chloride 0.9%) 1,000 mls @ 40 mls/hr IV .Q24H [facility] Stop: 07/17/16 17:01 Last Admin: 07/16/16 17:30 Dose: 40 mls/hr Methylprednisolone 30 mg/ (Sodium Chloride) 50.48 mls @ 100.96 mls/hr IV DAILY [facility] Meclizine HCl (Antivert) 25 mg PO BID [facility] Last Admin: 07/16/16 17:23 Dose: 25 mg Methotrexate (Methotrexate) 15 mg PO SUN [facility] PRN Reason: Protocol Oxycodone/Acetaminophen (Percocet 5/325 Mg Tab) 2 tab PO Q6H PRN PRN Reason: Pain, severe (8-10) Pantoprazole Sodium (Protonix Ec Tab) 40 mg PO DAILY [facility] Promethazine HCl/Codeine (Phenergan/Codeine Oral Syrup) 10 ml PO Q6 PRN PRN Reason: Cough Tamsulosin HCl (Flomax) 0.4 mg PO HS [facility] Last Admin: 07/16/16 22:56 Dose: 0.4 mg Zolpidem Tartrate (Ambien) 5 mg PO HS PRN PRN Reason: Insomnia Last Admin: 07/16/16 22:59 Dose: 5 mg Physical Exam - Constitutional Appears: Non-toxic - Head Exam Head Exam: NORMAL INSPECTION - Eye Exam Eye Exam: Normal appearance - ENT Exam ENT Exam: Mucous Membranes Moist - Neck Exam Neck exam: Positive for: Full Rom - Respiratory Exam Respiratory Exam: Decreased Breath Sounds - Cardiovascular Exam Cardiovascular Exam: REGULAR RHYTHM - GI/Abdominal Exam GI & Abdominal Exam: Normal Bowel Sounds - Rectal Exam Rectal Exam: Deferred - Extremities Exam Extremities exam: Positive for: pedal edema - Back Exam Back exam: NORMAL INSPECTION - Neurological Exam Neurological exam: Alert, Oriented x3 - Psychiatric Exam Psychiatric exam: Normal Affect - Skin Skin Exam: Normal Color Results - Vital Signs Recent Vital Signs: Last Vital Signs Temp 97.6 F 07/17/16 04:24 Pulse 81 07/17/16 04:24 Resp 20 07/17/16 04:24 BP 106/74 07/17/16 04:24 Pulse Ox 97 07/17/16 04:24 - Labs Result Diagrams: 07/17/16 06:00 07/17/16 06:00 Labs: Laboratory Results - last 24 hr 07/17/16 07/17/16 06:00 06:00 WBC 22.8 H RBC 4.32 L Hgb 13.1 Hct 39.8 MCV 92.0 MCH 30.4 MCHC 33.0 RDW 17.8 H Plt Count 297 MPV 9.2 Neut % (Auto) 68.6 Lymph % (Auto) 24.0 Leon % (Auto) 6.5 Eos % (Auto) 0.6 Baso % (Auto) 0.3 Neut # 15.6 H Lymph # 5.5 H Leon # 1.5 H Eos # 0.1 Baso # 0.1 Sodium 138 Potassium 3.8 Chloride 103 Carbon Dioxide 27 Anion Gap 12 BUN 21 H Creatinine 0.8 Est GFR ( Amer) > 60 Est GFR (Non-Af Amer) > 60 Random Glucose 77 Calcium 8.8 Total Bilirubin 0.5 AST 35 ALT 48 Alkaline Phosphatase 55 Total Protein 5.6 L Albumin 3.2 L Globulin 2.4 Albumin/Globulin Ratio 1.3 - EKG Data EKG Interpreted by: Myself Assessment & Plan (1) Severe dizziness Assessment and Plan: monitor on telemetry Status: Acute Priority: High (2) CAD (coronary artery disease) Assessment and Plan: recommend continued antiplatelet therapy Status: Chronic Priority: Medium (3) HTN (hypertension) Assessment and Plan: blood pressure control Status: Chronic Priority: Low
[2016-07-17] MEDS ORDERED: methylPREDNISolone 30 MG in Sodium Chloride 0.9% 50 ML IV SCH (09:00)
[2016-07-17] MEDS: Pantoprazole 40 mg EC Tab PO SCH (10:15)
[2016-07-17] MEDS: methylPREDNISolone 30 MG in Sodium Chloride 0.9% 50 ML IV SCH (12:39)
--- NOTE | 2016-07-17 14:10 | CP.PCM.PN ---
Subjective - Date & Time of Evaluation Date of Evaluation: 07/17/16 Time of Evaluation: 10:10 - Subjective Subjective: F/U Dizziness. Pt still c/o of dizziness, attempting to moving the head, occasional cough, no SOB. Objective - Vital Signs/Intake and Output Vital Signs (last 24 hours): Temp Pulse Resp BP Pulse Ox 98.0 F 94 H 18 100/65 95 07/17/16 12:24 07/17/16 12:24 07/17/16 12:24 07/17/16 12:24 07/17/16 12:24 - Medications Medications: Current Medications Albuterol Sulfate (Albuterol 0.083% Inhal Maddy (2.5 Mg/3 Ml) Ud) 2.5 mg INH RQ4 [facility] Last Admin: 07/17/16 11:47 Dose: 2.5 mg Alprazolam (Xanax) 0.5 mg PO BID PRN PRN Reason: Anxiety Aspirin (Ecotrin) 81 mg PO DAILY [facility] Last Admin: 07/17/16 10:15 Dose: 81 mg Atorvastatin Calcium (Lipitor) 40 mg PO HS [facility] Last Admin: 07/16/16 22:56 Dose: 40 mg Budesonide (Pulmicort Respules) 0.5 mg INH RBID [facility] Last Admin: 07/17/16 07:32 Dose: 0.5 mg Cholecalciferol (Vitamin D) 5,000 iu PO DAILY [facility] Last Admin: 07/17/16 10:13 Dose: 5,000 iu Ciprofloxacin (Cipro) 500 mg PO BID [facility] Last Admin: 07/17/16 10:15 Dose: 500 mg Folic Acid (Folic Acid) 1 mg PO DAILY [facility] Last Admin: 07/17/16 10:15 Dose: 1 mg Hydroxychloroquine Sulfate (Plaquenil) 400 mg PO DAILY [facility] Last Admin: 07/17/16 10:12 Dose: 400 mg Sodium Chloride (Sodium Chloride 0.9%) 1,000 mls @ 40 mls/hr IV .Q24H [facility] Stop: 07/17/16 17:01 Last Admin: 07/16/16 17:30 Dose: 40 mls/hr Methylprednisolone 30 mg/ (Sodium Chloride) 50.48 mls @ 100.96 mls/hr IV DAILY@ 1100 [facility] Last Admin: 07/17/16 12:39 Dose: 100.96 mls/hr Meclizine HCl (Antivert) 25 mg PO BID [facility] Last Admin: 07/17/16 10:14 Dose: 25 mg Methotrexate (Methotrexate) 15 mg PO SUN [facility] PRN Reason: Protocol Oxycodone/Acetaminophen (Percocet 5/325 Mg Tab) 2 tab PO Q6H PRN PRN Reason: Pain, severe (8-10) Pantoprazole Sodium (Protonix Ec Tab) 40 mg PO DAILY [facility] Last Admin: 07/17/16 10:15 Dose: 40 mg Promethazine HCl/Codeine (Phenergan/Codeine Oral Syrup) 10 ml PO Q6 PRN PRN Reason: Cough Tamsulosin HCl (Flomax) 0.4 mg PO HS [facility] Last Admin: 07/16/16 22:56 Dose: 0.4 mg Zolpidem Tartrate (Ambien) 5 mg PO HS PRN PRN Reason: Insomnia Last Admin: 07/16/16 22:59 Dose: 5 mg - Constitutional Appears: No Acute Distress - Head Exam Head Exam: NORMAL INSPECTION Additional comments: Cuchinoid face - Eye Exam Eye Exam: PERRL - ENT Exam ENT Exam: Normal Oropharynx - Neck Exam Neck Exam: Normal Inspection - Respiratory Exam Respiratory Exam: Decreased Breath Sounds, Rhonchi (few scattered), Wheezes - Cardiovascular Exam Cardiovascular Exam: REGULAR RHYTHM - GI/Abdominal Exam GI & Abdominal Exam: Soft, Normal Bowel Sounds - Extremities Exam Extremities Exam: Normal Inspection - Back Exam Back Exam: NORMAL INSPECTION - Neurological Exam Neurological Exam: Alert, Oriented x3. absent: Motor Sensory Deficit - Psychiatric Exam Psychiatric exam: Anxious - Skin Skin Exam: Warm Assessment and Plan (1) Severe dizziness Status: Acute (2) Light-headedness Status: Acute (3) COPD (chronic obstructive pulmonary disease) Status: Chronic (4) RA (rheumatoid arthritis) Status: Chronic - Assessment and Plan (Free Text) Plan: F/U Brain MRI, Neurology and Cardiology consult appreciated, ENT consult
--- NOTE | 2016-07-17 15:02 | CT ---
PROCEDURE: CT OF THE TEMPORAL BONES WITHOUT CONTRAST HISTORY: DIZZINESS COMPARISON: None available. TECHNIQUE: High resolution axial images of the temporal bones were obtained. Coronal and sagittal reformats were generated. Radiation dose: Total exam DLP = 581.38. MGy-cm. This CT exam was performed using one or more of the following dose reduction techniques: Automated exposure control, adjustment of the mA and/or kV according to patient size, and/or use of iterative reconstruction technique. FINDINGS: RIGHT TEMPORAL BONE: RIGHT MIDDLE EAR: Normal. RIGHT INNER EAR: Cochlea: Normal. Semicircular canals: Normal. RIGHT MASTOID AIR CELLS: Well-developed and currently well-aerated. RIGHT INTERNAL AUDITORY CANAL: Normal. No evidence of widening of the right porous acoustics. RIGHT EXTERNAL AUDITORY CANAL: Normal. RIGHT VESTIBULAR AND COCHLEAR AQUEDUCT: Normal. OTHER FINDINGS: None. LEFT TEMPORAL BONE: LEFT MIDDLE EAR: Normal. LEFT INNER EAR: Cochlea: Normal. Semicircular canals: Normal. LEFT MASTOID AIR CELLS: Well-developed and well-aerated LEFT INTERNAL AUDITORY CANAL: Normal. No evidence of a widening of the left porous acoustics LEFT EXTERNAL AUDITORY CANAL: Normal. LEFT VESTIBULAR AND COCHLEAR AQUEDUCTS: Normal. OTHER FINDINGS: None. IMPRESSION: Normal examination of the temporal bones. Consider follow-up MRI of the internal auditory canals with contrast if other lesions including but not limited to acoustic schwannoma suspected clinically.
[2016-07-17] MEDS ORDERED: Gadodiamide 287 MG/ML VIAL (15ML) IV ONE (16:39)
[2016-07-17] MEDS: Sodium Chloride 0.9% 1,000 ML IV SCH (16:52)
[2016-07-18] MEDS: Albuterol 0.083% Inhal Sol (2.5 mg/3 mL) UD INH SCH ×6 (00:16→19:26)
[2016-07-18] MEDS: Budesonide 0.25 mg/2 ml Inhal Susp UD INH SCH ×2 (07:43→19:25)
[2016-07-18] MEDS: Pantoprazole 40 mg EC Tab PO SCH (09:28)
[2016-07-18] MEDS: methylPREDNISolone 30 MG in Sodium Chloride 0.9% 50 ML IV SCH (11:47)
--- NOTE | 2016-07-18 12:11 | PQF GENQUE ---
Dr. Son, Are there associated diagnosis to go along with the following? : (1 ) Draft: H and P:Continue Cipro 500 mg PO BID: is Cipro for continued treatment for Pneumonia etc.? (2) If yes:Type of Pneumonia if known? (2) WBC:29.0->22.8 with a left shift: receiving IV steroids OR: Disagree OR; Unable to determine OR: Other explanation of clinical finding ER note: Patient was admitted to [facility] with pneumonia and discharged 6 days ago. Respiratory: Positive for: Wheezing (HIGHPITCHED , PROLONGED EXHALATION). Negative for: Accessory Muscle Use, Respiratory Distress Clinical Impression: Severe dizziness, Low BP, Dyspnea on exertion H and P: diagnoses include: Severe Dizziness, Lightheadedness,COPD: chronic Neuro consult: His dizziness is likely secondary to transient cerebral hypoperfusion to the brain given that he has low systolic and diastolic blood pressures, superimposed underlying Pneumonia and his underlying COPD given his dyspnea on exertion.Continue his antibiotics in regards to his recent Pneumonia 07/16:CXR: Imp.:No active disease. 07/16: CT Chest; Impression:Chronic interstitial changes with minimal dependent atelectasis at the right base. Small pericardial effusion. No pleural effusion. 07/17:CT Mastoids:consider follow-up MRI of the internal auditory canals with contrast if other lesions including but not limited to acoustic schwannoma suspected clinically Albuterol INH RQ4, Methylprednisolone IV daily This form is a permanent part of the medical record Clarification of your documentation is requested to better reflect the severity of illness and intensity of treatment of your patient. Indicators present [] Specify: [] [] Specify: [] [] Specify: [] [] Specify: [] Location in the medical record that reflects the above clinical findings: [] Treatment Provided: [] PHYSICIAN'S RESPONSE Based on your medical judgment of the clinical indicators outlined above please clarify the following: [] Practitioner response [] If unable to determine, please check the box, sign and date. Present On Admission (POA) Indicator: [] Present at the time of admission [] Not present at the time of admission [] Clinically Undetermined In responding to this query, please exercise your independent professional judgment. The fact that a question is asked does not imply that any particular answer is desired or expected. Thank you for your clarification on this documentation. If you have any questions please call. * Thank you, Hayley Lange RN BSN ext. #[phone] MTDD
--- NOTE | 2016-07-18 12:15 | PQF GENQUE ---
Dr. Son, COPD : Stable or Acute Exacerbation? OR: Other explanation of clinical finding OR:Unable to determine ER note: Respiratory: Positive for: Wheezing (HIGHPITCHED , PROLONGED EXHALATION ). Negative for: Accessory Muscle Use, Respiratory Distress H and : Continue Cipro, Albuterol Tx, Pulmicort, This form is a permanent part of the medical record Clarification of your documentation is requested to better reflect the severity of illness and intensity of treatment of your patient. Indicators present [] Specify: [] [] Specify: [] [] Specify: [] [] Specify: [] Location in the medical record that reflects the above clinical findings: [] Treatment Provided: [] PHYSICIAN'S RESPONSE Based on your medical judgment of the clinical indicators outlined above please clarify the following: [] Practitioner response [] If unable to determine, please check the box, sign and date. Present On Admission (POA) Indicator: [] Present at the time of admission [] Not present at the time of admission [] Clinically Undetermined In responding to this query, please exercise your independent professional judgment. The fact that a question is asked does not imply that any particular answer is desired or expected. Thank you for your clarification on this documentation. If you have any questions please call. * Thank you, Hayley Lange RN BSN ext. #[phone] MTDD
--- NOTE | 2016-07-18 13:04 | MRI ---
PROCEDURE: MRI BRAIN WITH AND WITHOUT CONTRAST HISTORY: Dizziness COMPARISON: Noncontrast head CT from 07/16/2016 TECHNIQUE: Multiplanar, multisequence MR images of the brain were obtained with and without intravenous contrast enhancement. FINDINGS: HEMORRHAGE: None DWI: No evidence of an acute or early subacute infarction. BRAIN PARENCHYMA: There are moderate chronic microangiopathic changes. There is no mass, mass effect or abnormal extra-axial fluid collection. The midline sagittal structures are normal. ENHANCEMENT: No abnormal intracranial enhancement. VENTRICLES: There is mild age-related global parenchymal volume loss and proportionate enlargement of the ventricles and cortical sulci. CRANIUM: There is normal bone marrow signal pattern. ORBITS: Grossly unremarkable. PARANASAL SINUSES/MASTOIDS: Predominantly clear. VASCULAR SYSTEM: There are normal signal voids in the larger intracranial arteries. . OTHER FINDINGS: None . IMPRESSION: No acute intracranial abnormality. Moderate chronic microangiopathic changes and mild age-related global parenchymal volume loss.
--- NOTE | 2016-07-18 14:44 | CP.PCM.PN ---
Subjective - Date & Time of Evaluation Date of Evaluation: 07/18/16 Time of Evaluation: 13:30 - Subjective Subjective: F/U Dizziness. Dizziness improved. Objective - Vital Signs/Intake and Output Vital Signs (last 24 hours): Temp Pulse Resp BP Pulse Ox 97.7 F 82 18 108/64 98 07/18/16 12:00 07/18/16 12:00 07/18/16 12:00 07/18/16 12:00 07/18/16 12:00 - Medications Medications: Current Medications Albuterol Sulfate (Albuterol 0.083% Inhal Maddy (2.5 Mg/3 Ml) Ud) 2.5 mg INH RQ4 [facility] Last Admin: 07/18/16 11:14 Dose: 2.5 mg Alprazolam (Xanax) 0.5 mg PO BID PRN PRN Reason: Anxiety Aspirin (Ecotrin) 81 mg PO DAILY [facility] Last Admin: 07/18/16 09:29 Dose: 81 mg Atorvastatin Calcium (Lipitor) 40 mg PO HS [facility] Last Admin: 07/17/16 21:22 Dose: 40 mg Budesonide (Pulmicort Respules) 0.5 mg INH RBID [facility] Last Admin: 07/18/16 07:43 Dose: 0.25 mg Cholecalciferol (Vitamin D) 5,000 iu PO DAILY [facility] Last Admin: 07/18/16 09:26 Dose: 5,000 iu Ciprofloxacin (Cipro) 500 mg PO BID [facility] Last Admin: 07/18/16 09:28 Dose: 500 mg Folic Acid (Folic Acid) 1 mg PO DAILY [facility] Last Admin: 07/18/16 09:28 Dose: 1 mg Hydroxychloroquine Sulfate (Plaquenil) 400 mg PO DAILY [facility] Last Admin: 07/18/16 09:27 Dose: 400 mg Methylprednisolone 30 mg/ (Sodium Chloride) 50.48 mls @ 100.96 mls/hr IV DAILY@ 1100 [facility] Last Admin: 07/18/16 11:47 Dose: 100.96 mls/hr Meclizine HCl (Antivert) 25 mg PO TID [facility] Methotrexate (Methotrexate) 15 mg PO SUN [facility] PRN Reason: Protocol Oxycodone/Acetaminophen (Percocet 5/325 Mg Tab) 2 tab PO Q6H PRN PRN Reason: Pain, severe (8-10) Pantoprazole Sodium (Protonix Ec Tab) 40 mg PO DAILY [facility] Last Admin: 07/18/16 09:28 Dose: 40 mg Promethazine HCl/Codeine (Phenergan/Codeine Oral Syrup) 10 ml PO Q6 PRN PRN Reason: Cough Tamsulosin HCl (Flomax) 0.4 mg PO HS [facility] Last Admin: 07/17/16 21:22 Dose: 0.4 mg Zolpidem Tartrate (Ambien) 5 mg PO HS PRN PRN Reason: Insomnia Last Admin: 07/17/16 23:19 Dose: 5 mg - Constitutional Appears: No Acute Distress - Head Exam Head Exam: NORMAL INSPECTION - Eye Exam Eye Exam: PERRL - ENT Exam ENT Exam: Normal Oropharynx - Neck Exam Neck Exam: Normal Inspection - Respiratory Exam Respiratory Exam: Decreased Breath Sounds, Rhonchi (few scattered) - Cardiovascular Exam Cardiovascular Exam: REGULAR RHYTHM - GI/Abdominal Exam GI & Abdominal Exam: Soft, Normal Bowel Sounds - Extremities Exam Extremities Exam: Normal Inspection - Back Exam Back Exam: NORMAL INSPECTION - Neurological Exam Neurological Exam: Alert, Oriented x3. absent: Motor Sensory Deficit - Psychiatric Exam Psychiatric exam: Anxious - Skin Skin Exam: Warm Assessment and Plan (1) Severe dizziness Status: Acute (2) Light-headedness Status: Acute (3) COPD (chronic obstructive pulmonary disease) Status: Chronic (4) RA (rheumatoid arthritis) Status: Chronic - Assessment and Plan (Free Text) Plan: Brain MRI showed: No acute intracranial abnormality. Moderate chronic microangiopathic changes and mild age-related global parenchyma volume loss. Continue Meclizine and ret of Tx . BP increased off BP medication.
--- NOTE | 2016-07-18 14:59 | PQF GENQUE ---
Dr. Son, After the work up is completed: etiology of severe dizziness and light- headedness?: if known OR: Unable to determine Neurology consult: His dizziness is likely secondary to transient cerebral hypoperfusion to the brain given that he has low systolic and diastolic blood pressures, superimposed underlying pneumonia and his underlying chronic obstructive pulmonary disease given his dyspnea on exertion Cardiology consult: Plan : (1) Severe dizziness Assessment and Plan: monitor on telemetry; 2) CAD (coronary artery disease) Assessment and Plan: recommend continued antiplatelet therapy Status: Chronic Priority: Medium (3) HTN (hypertension) Assessment and Plan: blood pressure control Status: Chronic Priority: Low This form is a permanent part of the medical record Clarification of your documentation is requested to better reflect the severity of illness and intensity of treatment of your patient. Indicators present [] Specify: [] [] Specify: [] [] Specify: [] [] Specify: [] Location in the medical record that reflects the above clinical findings: [] Treatment Provided: [] PHYSICIAN'S RESPONSE Based on your medical judgment of the clinical indicators outlined above please clarify the following: [] Practitioner response [] If unable to determine, please check the box, sign and date. Present On Admission (POA) Indicator: [] Present at the time of admission [] Not present at the time of admission [] Clinically Undetermined In responding to this query, please exercise your independent professional judgment. The fact that a question is asked does not imply that any particular answer is desired or expected. Thank you for your clarification on this documentation. If you have any questions please call. * Thank you, Hayley Lange RN BSN ext. #[phone] MTDD
[2016-07-19] MEDS: Albuterol 0.083% Inhal Sol (2.5 mg/3 mL) UD INH SCH ×4 (00:09→11:07)
[2016-07-19] MEDS: Budesonide 0.25 mg/2 ml Inhal Susp UD INH SCH (07:10)
[2016-07-19 08:22] VITALS: BP 115/75; PULSE 83; RESP 18; TEMP 97.5; O2SAT 98
[2016-07-19] MEDS: Pantoprazole 40 mg EC Tab PO SCH (09:26)
--- NOTE | 2016-07-19 15:45 | CP.PCM.PN ---
Subjective - Date & Time of Evaluation Date of Evaluation: 07/19/16 Time of Evaluation: 09:00 - Subjective Subjective: F/U Dizziness. Pt with no dizziness, no SOB. Objective - Vital Signs/Intake and Output Vital Signs (last 24 hours): Temp Pulse Resp BP Pulse Ox 97.5 F L 83 18 115/75 98 07/19/16 08:00 07/19/16 08:00 07/19/16 08:00 07/19/16 08:00 07/19/16 08:00 - Medications Medications: Current Medications Albuterol Sulfate (Albuterol 0.083% Inhal Maddy (2.5 Mg/3 Ml) Ud) 2.5 mg INH RQ4 [facility] Last Admin: 07/19/16 11:07 Dose: 2.5 mg Alprazolam (Xanax) 0.5 mg PO BID PRN PRN Reason: Anxiety Aspirin (Ecotrin) 81 mg PO DAILY [facility] Last Admin: 07/19/16 09:26 Dose: 81 mg Atorvastatin Calcium (Lipitor) 40 mg PO HS [facility] Last Admin: 07/18/16 22:13 Dose: 40 mg Budesonide (Pulmicort Respules) 0.5 mg INH RBID [facility] Last Admin: 07/19/16 07:10 Dose: 0.5 mg Cholecalciferol (Vitamin D) 5,000 iu PO DAILY [facility] Last Admin: 07/19/16 09:26 Dose: 5,000 iu Ciprofloxacin (Cipro) 500 mg PO BID [facility] Last Admin: 07/19/16 09:26 Dose: 500 mg Folic Acid (Folic Acid) 1 mg PO DAILY [facility] Last Admin: 07/19/16 09:26 Dose: 1 mg Hydroxychloroquine Sulfate (Plaquenil) 400 mg PO DAILY [facility] Last Admin: 07/19/16 09:26 Dose: 400 mg Meclizine HCl (Antivert) 25 mg PO TID [facility] Last Admin: 07/19/16 09:26 Dose: 25 mg Methotrexate (Methotrexate) 15 mg PO SUN [facility] PRN Reason: Protocol Oxycodone/Acetaminophen (Percocet 5/325 Mg Tab) 2 tab PO Q6H PRN PRN Reason: Pain, severe (8-10) Pantoprazole Sodium (Protonix Ec Tab) 40 mg PO DAILY [facility] Last Admin: 07/19/16 09:26 Dose: 40 mg Promethazine HCl/Codeine (Phenergan/Codeine Oral Syrup) 10 ml PO Q6 PRN PRN Reason: Cough Tamsulosin HCl (Flomax) 0.4 mg PO HS [facility] Last Admin: 07/18/16 22:13 Dose: 0.4 mg Zolpidem Tartrate (Ambien) 5 mg PO HS PRN PRN Reason: Insomnia Last Admin: 07/18/16 22:13 Dose: 5 mg - Constitutional Appears: No Acute Distress - Head Exam Head Exam: NORMAL INSPECTION Additional comments: Cuchinoid face. - Eye Exam Eye Exam: PERRL - ENT Exam ENT Exam: Normal Oropharynx - Neck Exam Neck Exam: Normal Inspection - Respiratory Exam Respiratory Exam: Decreased Breath Sounds - Cardiovascular Exam Cardiovascular Exam: REGULAR RHYTHM - GI/Abdominal Exam GI & Abdominal Exam: Soft, Normal Bowel Sounds - Extremities Exam Extremities Exam: Normal Inspection - Back Exam Back Exam: NORMAL INSPECTION - Neurological Exam Neurological Exam: Alert, Oriented x3. absent: Motor Sensory Deficit - Psychiatric Exam Psychiatric exam: Anxious - Skin Skin Exam: Warm Assessment and Plan (1) Severe dizziness Status: Acute (2) Light-headedness Status: Acute (3) COPD (chronic obstructive pulmonary disease) Status: Chronic (4) RA (rheumatoid arthritis) Status: Chronic - Assessment and Plan (Free Text) Plan: Dizziness was resolved appear it is 2nd to hypoperfusion on chronic small vessels disease, continue taper to Steroids and rest of Tx. Improved and stable to be discharged, f/u appt in one week.
== END 2016-07-19 15:00 | disposition home or self-care (01) | DRG 69 ==
LOC: H.ER 07:39 → H.EROBSV 09:56 → H.ERHOLD 11:31 → H.TEL 16:58 → OBSVTOIN 07-17 11:48
PROVIDERS: ADMIT Internal Medicine Pulmonary Disease; ATTEND Internal Medicine Pulmonary Disease
DX: I67.82 Cerebral ischemia (principal); J18.9 Pneumonia, unspecified organism; E86.0 Dehydration; J44.0 Chronic obstructive pulmonary disease with (acute) lower respiratory infection; M06.9 Rheumatoid arthritis, unspecified; E78.00 Pure hypercholesterolemia, unspecified; E78.5 Hyperlipidemia, unspecified; I10 Essential (primary) hypertension; I25.10 Atherosclerotic heart disease of native coronary artery without angina pectoris; Z95.5 Presence of coronary angioplasty implant and graft; G47.33 Obstructive sleep apnea (adult) (pediatric); J45.909 Unspecified asthma, uncomplicated; M19.90 Unspecified osteoarthritis, unspecified site

== ENCOUNTER 2016-08-04 09:25 | Observation (INO) | payer MEDICARE, MEDICAID ==
[2016-08-04 09:26] VITALS: BMI 31.9
--- NOTE | 2016-08-04 10:15 | ED PDOC ---
HPI: SOB/CHF/COPD Time Seen by Provider: 08/04/16 09:41 Chief Complaint (Nursing): Shortness Of Breath Chief Complaint (Provider): shortness of breath History Per: Patient History/Exam Limitations: no limitations Onset/Duration Of Symptoms: Days (x 3) Exacerbating Factor(s): Exertion Additional Complaint(s): Damien Lopes is a 70 year old male, with a previous medical history of diabetes, who presents to the ED with complaints of shortness of breath on exertion associated with dizziness and a scant nonproductive cough ongoing for 3 days. Patient denies chest pain, leg swelling or fever. PMD: none provided Past Medical History Reviewed: Historical Data, Nursing Documentation, Vital Signs Vital Signs: Last Vital Signs Temp Pulse 95 H 08/04/16 10:27 Resp 18 08/04/16 09:56 BP Pulse Ox 97 08/04/16 10:27 - Medical History PMH: Anemia, Anxiety, Arthritis, Asthma, CAD, COPD, Emphysema, HTN, Hypercholesterolemia, Pneumonia, Rheumatoid Arthritis, Sleep Apnea Denies: HIV, Chronic Kidney Disease - Surgical History Surgical History: Coronary Stent (x 1 done 2 mos ago) - Family History Family History: States: [place], Hypertension - Home Medications Home Medications: Ambulatory Orders Medication Instructions Recorded Folic Acid 1 mg PO DAILY 01/09/16 Tamsulosin [Flomax] 0.4 mg PO HS 01/09/16 Aspirin [Ecotrin] 81 mg PO DAILY 02/19/16 Atorvastatin [Lipitor] 40 mg PO HS 04/21/16 Cholecalciferol (Vitamin D3) 5,000 unit PO DAILY 04/21/16 [Vitamin D3] Furosemide [Lasix] 40 mg PO DAILY 04/21/16 Promethazine/Codeine 10 ml PO Q6 PRN #0 udc 04/24/16 [Phenergan/Codeine Oral Syrup] Fluticasone/Salmeterol 500/50 1 puff IH Q12 05/29/16 [Advair Diskus 500/50] Hydroxychloroquine Sulfate 400 mg PO DAILY #30 tablet 06/05/16 [Plaquenil] Pantoprazole [Protonix EC Tab] 40 mg PO DAILY #30 ect 07/11/16 Alprazolam [Xanax] 0.5 mg PO BID PRN 07/16/16 Ipratropium [Atrovent HFA] 2 puff IH Q6H PRN 07/16/16 Methotrexate 15 mg PO SUN 07/16/16 Oxycodone HCl/Acetaminophen 1 tab PO Q6H PRN 07/16/16 [Percocet 10-325 mg Tablet] Tiotropium [Spiriva] 18 mcg IH DAILY 07/16/16 Zolpidem [Ambien] 10 mg PO HS 07/16/16 Meclizine [Meclizine*] 25 mg PO TID #30 tab 07/19/16 predniSONE [predniSONE Tab] 40 mg PO DAILY #30 tab 07/19/16 - Allergies Allergies/Adverse Reactions: Allergies Allergy/AdvReac Type Severity Reaction Status Date / Time No Known Allergies Allergy Verified 08/04/16 09:34 Review of Systems ROS Statement: Except As Marked, All Systems Reviewed And Found Negative Constitutional: Negative for: Fever, Chills Cardiovascular: Negative for: Chest Pain Respiratory: Positive for: Cough, SOB with Exertion. Negative for: Sputum Musculoskeletal: Negative for: Leg Pain, Other (leg swelling ) Physical Exam - Reviewed Nursing Documentation Reviewed: Yes Vital Signs Reviewed: Yes - Physical Exam Appears: Positive for: Well, Non-toxic, No Acute Distress Head Exam: Positive for: ATRAUMATIC, NORMAL INSPECTION, NORMOCEPHALIC Skin: Positive for: Normal Color, Warm, Dry Neck: Positive for: Normal, Painless ROM, Supple Cardiovascular/Chest: Positive for: Regular Rate, Rhythm Respiratory: Positive for: Normal Breath Sounds. Negative for: Decreased Breath Sounds, Accessory Muscle Use, Wheezing, Respiratory Distress Gastrointestinal/Abdominal: Positive for: Normal Exam, Bowel Sounds, Soft. Negative for: Tenderness Extremity: Positive for: Normal ROM, Capillary Refill (< 2 seconds ). Negative for: Tenderness, Pedal Edema, Deformity, Swelling Neurologic/Psych: Positive for: Alert, Oriented - Laboratory Results Result Diagrams: 08/04/16 10:40 08/04/16 10:40 - ECG ECG Rhythm: Positive for: Sinus Rhythm. Negative for: ST/T Changes Rate: 95 (bpm) O2 Sat by Pulse Oximetry: 97 (RA) Pulse Ox Interpretation: Normal Medical Decision Making Medical Decision Making: Initial Impression: shortness of breath Initial Plan: * EKG * CXR * labs * Probnp * Troponin I * reevaluation Scribe Attestation: Documented by Helen Austin, acting as a scribe for Felice Flores MD. Provider Scribe Attestation: All medical record entries made by the Scribe were at my direction and personally dictated by me. I have reviewed the chart and agree that the record accurately reflects my personal performance of the history, physical exam, medical decision making, and the department course for this patient. I have also personally directed, reviewed, and agree with the discharge instructions and disposition. Disposition - Clinical Impression Clinical Impression: COPD exacerbation - Patient ED Disposition Is Patient to be Admitted: Yes - Disposition Disposition Time: 12:34 Condition: FAIR - Pt Status Changed To: Hospital Disposition Of: Observation - POA Present On Arrival: None
[2016-08-04 11:03] LABS: BASO # 0.1 K/uL (0.0-0.2); BASO % 0.7 % (0.0-2.0); EOS # 0.3 K/uL (0.0-0.7); EOS % 1.3 % (0.0-4.0); HEMATOCRIT 40.7 % (35.0-51.0); LYMPH # 3.9 K/uL (1.0-4.3); LYMPH % 18.5 % (20.0-40.0); MEAN CORPUSCULAR HEMOGLOBIN 30.3 pg (27.0-31.0); MEAN CORPUSCULAR HGB CONC 32.3 g/dL (33.0-37.0); MEAN PLATELET VOLUME 8.9 fl (7.2-11.7); MONO # 1.6 K/uL (0.0-0.8); MONO % 7.7 % (0.0-10.0); NEUT % 71.8 % (50.0-75.0); NRBC % 0.2 % (0.0-0.0); RED CELL DISTRIBUTION WIDTH 18.3 % (11.5-14.5); WHITE BLOOD COUNT 20.9 K/uL (4.8-10.8)
[2016-08-04] MEDS ORDERED: Albuterol-Ipratrop 3 mg / 0.5 (3 ml) UD ONE ×2 (11:04→12:47)
[2016-08-04] MEDS ORDERED: Albuterol-Ipratrop 3 mg / 0.5 (3 ml) UD IH STA ×2 (11:13→12:24)
[2016-08-04 11:33] LABS: ALB/GLOB RATIO 1.2 (1.0-2.1); ALKALINE PHOSPHATASE 57 U/L (38-126); ALT/SGPT 35 U/L (21-72); AST/SGOT 48 U/L (17-59); BILIRUBIN,TOTAL 1.2 mg/dl (0.2-1.3); BLOOD UREA NITROGEN 11 mg/dl (9-20); CALCIUM 9.2 mg/dL (8.4-10.2); CARBON DIOXIDE 24 mmol/L (22-30); CHLORIDE 105 mmol/L (98-107); GFR AFRICAN-AMERICAN > 60; GLUCOSE,RANDOM 85 mg/dL (75-110); POTASSIUM 6.1 MMOL/L (3.6-5.0); SODIUM 136 mmol/l (132-148)
[2016-08-04 13:27] LABS: BLOOD UREA NITROGEN 11 mg/dl (9-20); CALCIUM 9.2 mg/dL (8.4-10.2); CARBON DIOXIDE 24 mmol/L (22-30); CHLORIDE 103 mmol/L (98-107); GFR AFRICAN-AMERICAN > 60; GLUCOSE,RANDOM 149 mg/dL (75-110); POTASSIUM 4.4 MMOL/L (3.6-5.0); SODIUM 138 mmol/l (132-148)
--- NOTE | 2016-08-04 13:27 | RAD ---
HISTORY: sob COMPARISON: Chest x-ray performed 07/16/16, CT chest without contrast performed 07/16/16 TECHNIQUE: Chest PA and lateral FINDINGS: LUNGS: Chronic interstitial markings. Mild increase in interstitial prominence may reflect superimposed infection or edema. Mild left basilar atelectasis or infiltrate. Please note that chest x-ray has limited sensitivity for the detection of pulmonary masses. PLEURA: No significant pleural effusion identified. No definite pneumothorax . CARDIOVASCULAR: Heart size appears top normal. OSSEOUS STRUCTURES: Degenerative changes. VISUALIZED UPPER ABDOMEN: Unremarkable. OTHER FINDINGS: None. IMPRESSION: Chronic interstitial markings. Mild increase in interstitial prominence may reflect superimposed infection or edema. Mild left basilar atelectasis or infiltrate.
[2016-08-04] MEDS ORDERED: Patient's Own Med (Oxycodone Hcl/Acetaminophen [Percocet 10-325 Mg Tablet] 1 TAB) PO PRN (17:26)
[2016-08-04] MEDS ORDERED: Promethazine/Cod 6.25mg-10mg/5ml Syr UD PO PRN (17:26)
[2016-08-04] MEDS: methylPREDNISolone 40 MG in Sodium Chloride 0.9% 50 ML IV SCH (19:07)
[2016-08-04] MEDS: Albuterol-Ipratrop 3 mg / 0.5 (3 ml) UD INH SCH ×2 (23:50→23:51)
--- NOTE | 2016-08-05 | CARD ---
APPROVED REPORT EKG Measurement Heart [id number] <Conclusion> Sinus rhythm with marked sinus arrhythmia Otherwise normal ECG
[2016-08-05] MEDS: methylPREDNISolone 40 MG in Sodium Chloride 0.9% 50 ML IV SCH ×2 (01:12→09:13)
[2016-08-05] MEDS ORDERED: Albuterol-Ipratrop 3 mg / 0.5 (3 ml) UD ONE (05:07)
[2016-08-05] MEDS: Albuterol-Ipratrop 3 mg / 0.5 (3 ml) UD INH SCH ×3 (05:21→11:28)
[2016-08-05 06:37] LABS: HEMATOCRIT 38.2 % (35.0-51.0); MEAN CELL VOLUME 92.8 fl (80.0-94.0); MEAN CORPUSCULAR HEMOGLOBIN 30.5 pg (27.0-31.0); MEAN CORPUSCULAR HGB CONC 32.8 g/dL (33.0-37.0); RED CELL DISTRIBUTION WIDTH 17.5 % (11.5-14.5)
[2016-08-05 06:40] LABS: BLOOD UREA NITROGEN 20 mg/dl (9-20); CALCIUM 9.7 mg/dL (8.4-10.2); CARBON DIOXIDE 28 mmol/L (22-30); CHLORIDE 103 mmol/L (98-107); CHOLESTEROL 120 mg/dL (0-199); GFR AFRICAN-AMERICAN > 60; GLUCOSE,RANDOM 156 mg/dL (75-110); POTASSIUM 5.1 MMOL/L (3.6-5.0); SODIUM 140 mmol/l (132-148)
[2016-08-05 06:58] LABS: T4 8.66 ug/dl (5.5-11.0)
[2016-08-05 07:11] LABS: THYROID STIMULATING HORMONE 0.33 mIU/ML (0.46-4.68)
[2016-08-05] MEDS ORDERED: diltiaZEM 120 mg/24 Hours CD Cap PO SCH (09:00)
[2016-08-05] MEDS ORDERED: Enoxaparin 40 mg Syringe SC SCH (09:00)
[2016-08-05] MEDS ORDERED: Pantoprazole 40 mg EC Tab PO SCH (09:00)
[2016-08-05] MEDS ORDERED: Tiotropium 18 mcg Cap For Inhalation INH SCH (11:00)
[2016-08-05 12:48] VITALS: BP 125/72; PULSE 65; RESP 20; TEMP 97.6; O2SAT 97
--- NOTE | 2016-08-05 16:37 | CP.PCM.HP ---
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 Pt c/o of moderate SOB on and off, associated to mild cough, non productive, non bloody. Worsening symptom: GREEN. Aggravated factor: Pt with multiples admission in this year for COPD Exacerbation, Former smoker 2-3 PPD for 40 yrs, quit 5 yrs ago. Pt denied: Fever, chills, n/v/d, abdominal pain, hemoptysis, CP, syncope, dizziness, sick contact, recent travel. PMHx: COPD, Emphysema, Asthma, ANDRZEJ, HTN, CAD, Coronary Stent x1, Anemia, R/A, O /A, Shingles, Anxiety. EKG Shows: Sinus rhythm with marked sinus arrhythmia. CXR showed: Mild left bibasilar atelectasis or infiltrate. Present on Admission - Present on Admission Any Indicators Present on Admission: No Review of Systems - Constitutional Constitutional: Other (negative) - EENT Eyes: Requires Corrective Lenses, Other (Cataract L eye) Ears: Other Nose/Mouth/Throat: Other (negative) - Cardiovascular Cardiovascular: Other (negative) - Respiratory Respiratory: Cough, Dyspnea, Dyspnea on Exertion - Gastrointestinal Gastrointestinal: Heartburn - Genitourinary Genitourinary: Other (negative) - Musculoskeletal Musculoskeletal: Arthralgias - Integumentary Integumentary: Other (negative) - Neurological Neurological: Other (negative) - Psychiatric Psychiatric: Anxiety - Endocrine Endocrine: Other (negative) - Hematologic/Lymphatic Hematologic: Other (negative) Past Patient History - Past Medical History & Family History Past Medical History?: Yes Pertinent Family History: [place], HTN - Past Social History Smoking Status: Former Smoker Alcohol: None Drugs: Denies Home Situation {Lives}: Alone - CARDIAC Hx Cardiac Disorders: Yes Hx Hypertension: Yes - PULMONARY Hx Respiratory Disorders: Yes Hx Asthma: Yes Hx Chronic Obstructive Pulmonary Disease (COPD): Yes Hx Pneumonia: Yes Hx Sleep Apnea: Yes - NEUROLOGICAL Hx Neurological Disorder: No - HEENT Hx HEENT Problems: No Hx Cataracts: No (denies) - RENAL Hx Chronic Kidney Disease: No - ENDOCRINE/METABOLIC Hx Endocrine Disorders: No - HEMATOLOGICAL/ONCOLOGICAL Hx Blood Disorders: Yes Hx Anemia: Yes Hx Human Immunodeficiency Virus (HIV): No - INTEGUMENTARY Hx Dermatological Problems: No - MUSCULOSKELETAL/RHEUMATOLOGICAL Hx Musculoskeletal Disorders: Yes Hx Arthritis: Yes Hx Falls: No Hx Rheumatoid Arthritis: Yes - GASTROINTESTINAL Hx Gastrointestinal Disorders: Yes Hx Gastroesophageal Reflux: Yes - GENITOURINARY/GYNECOLOGICAL Hx Genitourinary Disorders: No - PSYCHIATRIC Hx Psychophysiologic Disorder: Yes Hx Anxiety: Yes Hx Substance Use: No - SURGICAL HISTORY Hx Surgeries: Yes Hx Coronary Stent: Yes (x 1 done 2 mos ago) - ANESTHESIA Hx Anesthesia: Yes Hx Anesthesia Reactions: No Hx Malignant Hyperthermia: No Meds Home Medications: Home Medication List Medication Instructions Recorded Confirmed Type predniSONE [predniSONE Tab] 10 mg PO DAILY #30 tab 08/05/16 Rx Allergies/Adverse Reactions: Allergies Allergy/AdvReac Type Severity Reaction Status Date / Time No Known Allergies Allergy Verified 08/04/16 09:34 Physical Exam - Constitutional Appears: No Acute Distress, Chronically Ill - Head Exam Head Exam: NORMAL INSPECTION - Eye Exam Eye Exam: PERRL - ENT Exam ENT Exam: Normal Oropharynx - Neck Exam Neck exam: Positive for: Normal Inspection - Respiratory Exam Respiratory Exam: Decreased Breath Sounds (at bases) - Cardiovascular Exam Cardiovascular Exam: REGULAR RHYTHM - GI/Abdominal Exam GI & Abdominal Exam: Normal Bowel Sounds, Soft - Extremities Exam Extremities exam: Positive for: normal inspection - Back Exam Back exam: NORMAL INSPECTION - Neurological Exam Neurological exam: Alert, Oriented x3 Additional comments: No motor sensory deficit. - Psychiatric Exam Psychiatric exam: Anxious - Skin Skin Exam: Normal Color, Warm Results - Vital Signs Recent Vital Signs: Last Vital Signs Temp 97.6 F 08/05/16 12:00 Pulse 65 08/05/16 12:00 Resp 20 08/05/16 12:00 BP 125/72 08/05/16 12:00 Pulse Ox 97 08/05/16 12:00 reviewed William - Labs Result Diagrams: 08/05/16 05:15 08/05/16 05:15 Labs: Laboratory Results - last 24 hr 08/04/16 08/05/16 08/05/16 21:29 05:15 05:15 WBC 19.0 H RBC 4.11 L Hgb 12.5 Hct 38.2 MCV 92.8 MCH 30.5 MCHC 32.8 L RDW 17.5 H Plt Count 325 Sodium 140 Potassium 5.1 H Chloride 103 Carbon Dioxide 28 Anion Gap 14 BUN 20 Creatinine 0.9 Est GFR ( Amer) > 60 Est GFR (Non-Af Amer) > 60 POC Glucose (mg/dL) 196 H Random Glucose 156 H Calcium 9.7 Triglycerides 62 Cholesterol 120 LDL Cholesterol Direct 55 HDL Cholesterol 44 Thyroxine (T4) 8.66 TSH 3rd Generation 0.33 L 08/05/16 11:16 WBC RBC Hgb Hct MCV MCH MCHC RDW Plt Count Sodium Potassium Chloride Carbon Dioxide Anion Gap BUN Creatinine Est GFR ( Amer) Est GFR (Non-Af Amer) POC Glucose (mg/dL) 235 H Random Glucose Calcium Triglycerides Cholesterol LDL Cholesterol Direct HDL Cholesterol Thyroxine (T4) TSH 3rd Generation reviewed J.P. - EKG Data EKG comments: reviewed J.P. - Imaging and Cardiology Chest x-ray Status: Report reviewed by me (William) Assessment & Plan (1) COPD exacerbation Status: Acute Priority: High (2) CAD (coronary artery disease) Status: Chronic Priority: Medium (3) RA (rheumatoid arthritis) Status: Chronic Priority: Medium (4) Esophageal reflux Status: Acute Priority: Medium (5) Anxiety Status: Acute Priority: Medium - Assessment and Plan (Free Text) Plan: Pt improved and stable to be discharged, see instruction medication sheet, f/u in my office in a week. - Date & Time Date: 08/05/16 Time: 12:40
== END 2016-08-05 15:00 | disposition home or self-care (01) ==
LOC: H.ER 09:25 → H.ERHOLD 12:33 → H.TEL 14:57
PROVIDERS: ADMIT Internal Medicine Pulmonary Disease; ATTEND Internal Medicine Pulmonary Disease
DX: J44.1 Chronic obstructive pulmonary disease with (acute) exacerbation (principal); F41.9 Anxiety disorder, unspecified; G47.33 Obstructive sleep apnea (adult) (pediatric); I10 Essential (primary) hypertension; D64.9 Anemia, unspecified; I25.10 Atherosclerotic heart disease of native coronary artery without angina pectoris; K21.9 Gastro-esophageal reflux disease without esophagitis; M06.9 Rheumatoid arthritis, unspecified; Z87.891 Personal history of nicotine dependence; Z95.5 Presence of coronary angioplasty implant and graft; J98.11 Atelectasis
CPT/HCPCS: 36415; 71020; 80048; 80053; 80061; 82306; 82948; 83880; 84436; 84443; 84484; 85025; 85027; 93005; 94640; 96365; 96366; 96375; 99285; G0378; J2920; J2930

== ENCOUNTER 2016-09-21 16:22 | Inpatient (IN) | payer MEDICARE, MEDICAID ==
[2016-09-21 16:23] VITALS: BMI 31.9
[2016-09-21] MEDS ORDERED: Albuterol-Ipratrop 3 mg / 0.5 (3 ml) UD INH STA (16:44)
--- NOTE | 2016-09-21 17:02 | ED PDOC ---
HPI: SOB/CHF/COPD Time Seen by Provider: 09/21/16 16:33 Chief Complaint (Nursing): Shortness Of Breath Chief Complaint (Provider): Shortness Of Breath History Per: Patient History/Exam Limitations: no limitations Onset/Duration Of Symptoms: Days (x3 days) Current Symptoms Are (Timing): Still Present Additional Complaint(s): 70 y/o male with a past medical history of chronic obstructive pulmonary disease (COPD), severe arthritis, and coronary artery disease who presents to the emergency department with a complaint of diffuse joint pains and shortness of breath x3 days. Associated with minimal cough, sputum, and 1 episode of chest pain yesterday. States worsening since onset or with any exertion. Reports taking COPD medications with minimal relief of discomfort. Denies fever and chills. [place] Trimmer: Dr. 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) - Family History Family History: States: [place], Hypertension - Social History Current smoker - smoking cessation education provided: No Ex-Smoker (has not smoked in the last 12 months): Yes (x45 years) Alcohol: None Drugs: Denies - Home Medications Home Medications: Ambulatory Orders Medication Instructions Recorded Folic Acid 1 mg PO DAILY 01/09/16 Tamsulosin [Flomax] 0.4 mg PO HS 01/09/16 Aspirin [Ecotrin] 81 mg PO DAILY 02/19/16 Atorvastatin [Lipitor] 40 mg PO HS 04/21/16 Promethazine/Codeine 10 ml PO Q6 PRN #0 udc 04/24/16 [Phenergan/Codeine Oral Syrup] Hydroxychloroquine Sulfate 400 mg PO DAILY #30 tablet 06/05/16 [Plaquenil] Alprazolam [Xanax] 0.5 mg PO BID PRN 07/16/16 Ipratropium [Atrovent HFA] 2 puff IH Q6H PRN 07/16/16 Methotrexate 15 mg PO SUN 07/16/16 Oxycodone HCl/Acetaminophen 1 tab PO Q6H PRN 07/16/16 [Percocet 10-325 mg Tablet] Tiotropium [Spiriva] 18 mcg IH DAILY 07/16/16 Zolpidem [Ambien] 10 mg PO HS 07/16/16 Albuterol/Ipratropium [Duoneb 3 3 ml IH Q8H PRN 08/04/16 mg/0.5 mg (3 ml) UD] Budesonide/Formoterol Fumarate 2 puff IH Q12H 08/04/16 [Symbicort 160-4.5 Mcg Inhaler] Cholecalciferol [Vitamin D 1000 IU] 1,000 unit PO DAILY 08/04/16 Omeprazole 40 mg PO DAILY 08/04/16 Ticagrelor [Brilinta] 90 mg PO BID 08/04/16 Metoprolol Tartrate [Lopressor] 50 mg PO DAILY 09/21/16 - Allergies Allergies/Adverse Reactions: Allergies Allergy/AdvReac Type Severity Reaction Status Date / Time No Known Allergies Allergy Verified 09/21/16 16:26 Review of Systems ROS Statement: Except As Marked, All Systems Reviewed And Found Negative (and as per HPI) Constitutional: Negative for: Fever, Chills Cardiovascular: Positive for: Chest Pain (1 episodes yesterday) Respiratory: Positive for: Cough (Minimal), Shortness of Breath, Sputum (Minimal ) Musculoskeletal: Positive for: Other (Joint pain) Physical Exam - Reviewed Nursing Documentation Reviewed: Yes Vital Signs Reviewed: Yes - Physical Exam Appears: Positive for: Non-toxic, In Acute Distress (Mild respiratory distress and in moderate painful distress) Head Exam: Positive for: ATRAUMATIC, NORMAL INSPECTION, NORMOCEPHALIC Skin: Positive for: Normal Color, Warm, Dry Eye Exam: Positive for: EOMI, PERRL ENT: Positive for: Other (muc memb moist). Negative for: Pharyngeal Erythema Neck: Positive for: Painless ROM, Supple Cardiovascular/Chest: Positive for: Regular Rate, Rhythm, Chest Non Tender. Negative for: Murmur Respiratory: Positive for: Rhonchi (Diffuse b/l), Respiratory Distress. Negative for: Normal Breath Sounds, Accessory Muscle Use, Rales Gastrointestinal/Abdominal: Positive for: Normal Exam (Protuberant obese), Soft. Negative for: Tenderness Back: Positive for: Normal Inspection. Negative for: Decreased ROM Extremity: Positive for: Normal ROM, Tenderness (Diffuse tenderness to palpitation at his joints especially to the elbows, wrist, and knees. ). Negative for: Pedal Edema, Deformity Lymphatic: Negative for: Adenopathy Neurologic/Psych: Positive for: Alert, Oriented, Mood/Affect (Anxious). Negative for: Motor/Sensory Deficits - Laboratory Results Result Diagrams: 09/22/16 09:00 09/22/16 09:00 - ECG O2 Sat by Pulse Oximetry: 96 (RA) Pulse Ox Interpretation: Normal Medical Decision Making Medical Decision Making: Time: 16:43 Initial impression: COPD exacerbation and arthritis Initial plan: --Labs --Urine DIP --EKG --PTT & Prothrombin --Chest x-ray --Duoneb 6 ml INH --Methylprednisolone 125 mg IVP --Morphine 2 mg IVP --Blood culture --Peak Flow Pre/post TX --Reevaluation Time: 18:19 --Chest x-ray read by me: Infiltrate vs scarring of the right lung field. ----Labs demonstrated elevated pro-BNP and leukocytosis otherwise no clinical sign lab abnormalities. --Admit to hospital routine: on Observation in telemetry for COPD exacerbation and chest pain with risk factors after labs discussed and consulted with Dr. Kareem Son MD. --On reassessment, patient is stable and symptoms are improving but continues to have wheeze and dyspnea. Scribe Attestation: Documented by Netta Navas, acting as a scribe for Velma Yoon MD. Provider Scribe Attestation: All medical record entries made by the Scribe were at my direction and personally dictated by me. I have reviewed the chart and agree that the record accurately reflects my personal performance of the history, physical exam, medical decision making, and the department course for this patient. I have also personally directed, reviewed, and agree with the discharge instructions and disposition. Disposition - Clinical Impression Clinical Impression: COPD (chronic obstructive pulmonary disease), Chest pain Counseled Patient/Family Regarding: Studies Performed, Diagnosis - Disposition Disposition Time: 18:30 Condition: FAIR - Pt Status Changed To: Hospital Disposition Of: Observation - POA Present On Arrival: None
[2016-09-21 17:16] LABS: BASO # 0.1 K/uL (0.0-0.2); BASO % 0.8 % (0.0-2.0); EOS # 1.2 K/uL (0.0-0.7); EOS % 7.7 % (0.0-4.0); HEMOGLOBIN 11.2 g/dL (12.0-18.0); LYMPH # 2.3 K/uL (1.0-4.3); LYMPH % 15.5 % (20.0-40.0); MEAN CELL VOLUME 91.1 fl (80.0-94.0); MEAN CORPUSCULAR HGB CONC 32.9 g/dL (33.0-37.0); MONO # 1.3 K/uL (0.0-0.8); MONO % 8.9 % (0.0-10.0); NEUT # 10.1 K/uL (1.8-7.0); NEUT % 67.1 % (50.0-75.0); RBC 3.73 Mil/uL (4.40-5.90); RED CELL DISTRIBUTION WIDTH 16.3 % (11.5-14.5)
[2016-09-21 17:22] LABS: ALB/GLOB RATIO 1.1 (1.0-2.1); ALBUMIN 3.6 g/dL (3.5-5.0); ALT/SGPT 28 U/L (21-72); AST/SGOT 23 U/L (17-59); BLOOD UREA NITROGEN 14 mg/dl (9-20); CALCIUM 9.5 mg/dL (8.4-10.2); GFR AFRICAN-AMERICAN > 60; GFR NON-AFRICAN AMERICAN > 60
[2016-09-21 17:29] LABS: INR 1.1 (0.9-1.2); PARTIAL THROMBOPLASTIN TIME 29.4 Seconds (25.6-37.1); PROTHROMBIN TIME 11.7 Seconds (9.8-13.1)
[2016-09-21 17:33] LABS: B-TYPE NATRIURETIC PEPTIDE 1170 pg/ml (0-900)
[2016-09-21] MEDS ORDERED: Patient's Own Med (Oxycodone Hcl/Acetaminophen [Percocet 10-325 Mg Tablet] 1 TAB) PO PRN (21:49)
[2016-09-21] MEDS ORDERED: Promethazine/Cod 6.25mg-10mg/5ml Syr UD PO PRN (21:49)
[2016-09-21] MEDS ORDERED: Sodium Chloride 3% for Inhalation 4 ML VIAL.NEB IH PRN (21:53)
[2016-09-21] MEDS ORDERED: Oxycodone/Acetaminophen 5/325 mg Tab PO PRN ×2 (22:42→22:45)
[2016-09-21] MEDS: Albuterol-Ipratrop 3 mg / 0.5 (3 ml) UD INH SCH (23:14)
[2016-09-22] MEDS: Azithromycin 500 MG in Sodium Chloride 0.9% 250 ML IVPB SCH ×2 (00:07→11:00)
[2016-09-22] MEDS: methylPREDNISolone 40 MG in Sodium Chloride 0.9% 50 ML IV SCH ×3 (01:48→16:30)
[2016-09-22] MEDS: Albuterol-Ipratrop 3 mg / 0.5 (3 ml) UD INH SCH ×5 (05:17→19:20)
--- NOTE | 2016-09-22 07:39 | CARD ---
APPROVED REPORT EKG Measurement Heart [id number] <Conclusion> Normal sinus rhythm Normal ECG
--- NOTE | 2016-09-22 08:35 | RAD ---
HISTORY: sob COMPARISON: Comparison is made to 08/04/2016 FINDINGS: LUNGS: Small opacity seen at the right lung base may represent pneumonia or atelectasis. Otherwise no interval change. Hyperinflation of the lungs and reticular opacities suggestive of emphysema/COPD. PLEURA: No significant pleural effusion identified, no pneumothorax apparent. CARDIOVASCULAR: Normal. OSSEOUS STRUCTURES: No significant abnormalities. VISUALIZED UPPER ABDOMEN: Normal. OTHER FINDINGS: None. IMPRESSION: Small opacity seen at the right lung base may represent atelectasis or pneumonia. Otherwise no significant interval change.
[2016-09-22] MEDS: Pantoprazole 40 mg EC Tab PO SCH (09:13)
[2016-09-22 09:28] LABS: MEAN CELL VOLUME 90.7 fl (80.0-94.0); MEAN CORPUSCULAR HEMOGLOBIN 29.9 pg (27.0-31.0); RBC 3.69 Mil/uL (4.40-5.90); RED CELL DISTRIBUTION WIDTH 16.5 % (11.5-14.5)
[2016-09-22 09:44] LABS: ALB/GLOB RATIO 1.1 (1.0-2.1); ALBUMIN 3.7 g/dL (3.5-5.0); ALT/SGPT 23 U/L (21-72); AST/SGOT 28 U/L (17-59); BLOOD UREA NITROGEN 16 mg/dl (9-20); CALCIUM 9.7 mg/dL (8.4-10.2); GFR AFRICAN-AMERICAN > 60; GFR NON-AFRICAN AMERICAN > 60; HDL CHOLESTEROL 38 MG/DL (30-70)
[2016-09-22 09:55] LABS: LDL CHOLESTEROL 64 mg/dL (0-129)
[2016-09-22 10:02] LABS: T4 9.56 ug/dl (5.5-11.0)
[2016-09-22 10:15] LABS: T3 0.965 nmol/L (1.49-2.60)
[2016-09-22] MEDS: Tiotropium 18 mcg Cap For Inhalation IH SCH (11:00)
--- NOTE | 2016-09-22 13:41 | CT ---
PROCEDURE: CT Chest without contrast HISTORY: Pneumonia, shortness of breath. COMPARISON: 07/16/2016. Summary of findings on the comparison examination:Chronic interstitial changes with minimal dependent atelectasis at the right base. Small pericardial effusion. No pleural effusion. TECHNIQUE: Contiguous axial images were obtained through the chest without intravenous contrast enhancement. Sagittal and coronal reconstructions were performed. Radiation dose (DLP): 687.29 mGy-cm. This CT exam was performed using one or more of the following dose reduction techniques: Automated exposure control, adjustment of the mA and/or kV according to patient size, and/or use of iterative reconstruction technique. FINDINGS: LUNGS: CHRONIC INTERSTITIAL LUNG DISEASE, BIAPICAL SCARRING AND ASYMMETRIC RIGHT GREATER THAN LEFT. MEDIASTINUM: No suspicious pulmonary nodules, masses or discrete infiltrates identified. Unremarkable thoracic aorta. No aneurysm. Normal sized heart. Main pulmonary artery unremarkable. No vascular congestion. No lymphadenopathy. PLEURA: No pleural fluid. No pneumothorax. BONES: No fracture. No destructive lesion. UPPER ABDOMEN: No significant interval change compared to the prior examination(s). OTHER FINDINGS: None. IMPRESSION: Chronic interstitial lung disease upper lobe predilection asymmetric right upper lobe involved to a greater extent than the left upper lobe. No new/acute or significant findings.
[2016-09-22 14:53] LABS: SQUAMOUS EPITHIAL < 1 /hpf (0-5); URINE BILIRUBIN NEGATIVE (NEGATIVE); URINE BLOOD NEGATIVE (NEGATIVE); URINE CLARITY CLEAR (Clear); URINE COLOR YELLOW (YELLOW); URINE GLUCOSE (UA) NEG (Normal); URINE LEUKOCYTE ESTERASE NEG Leu/uL (Negative); URINE NITRATE NEGATIVE (NEGATIVE); URINE PROTEIN NEGATIVE (NEGATIVE); URINE UROBILINOGEN 0.2-1.0 mg/dL (0.2-1.0)
--- NOTE | 2016-09-22 16:17 | CP.PCM.HP ---
History of Present Illness - History of Present Illness History of Present Illness: CC: SOB. 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 Pt had Solumedrol in the ER and start breathing better and with less joint pain. Worsening symptoms: Joint swelling associated to severe pain, intensity 8:10. Pt had injection to L knee last 09/18/16 2nd to decreased ROM and pain placed by the Rheumatology but there after, he continue with generalized joint swelling without relief. 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 Aggravated Factor: Difficulty breathing with walking, Lack of sleep 2nd to joints pain and SOB. Former Smoker 2-3 PPD x 40 yrs, quit 5 years ago. Pt denied: Fever, chills, abdominal pain, n/v/d, hemoptysis, syncope, dizziness , sick contact, recent travel. PMHx: COPD, Emphysema, Asthma, ANDRZEJ, CAD, HTN, Coronary Stent x 1, R/A, O/A, Anemia, Anxiety, Hx Shingles. CXR shows: Opacity at the R lung base representing PNA/ Atelectasis. CT Chest: ILD EKG: Normal sinus rhythm. Present on Admission - Present on Admission Any Indicators Present on Admission: No Review of Systems - Constitutional Constitutional: Other (negative) - EENT Eyes: Requires Corrective Lenses Ears: Other (negative) Nose/Mouth/Throat: Other (negative) - Cardiovascular Cardiovascular: Chest Pain - Respiratory Respiratory: Cough, Dyspnea, Dyspnea on Exertion - Gastrointestinal Gastrointestinal: Other (negative) - Genitourinary Genitourinary: Other (negative) - Musculoskeletal Musculoskeletal: Arthralgias, Joint Swelling, Other (joints pain) - Integumentary Integumentary: Other (negative) - Neurological Neurological: Other (negative) - Psychiatric Psychiatric: Anxiety - Endocrine Endocrine: Other (negative) - Hematologic/Lymphatic Hematologic: Other (anemia) Past Patient History - Past Medical History & Family History Past Medical History?: Yes Pertinent Family History: [place], HTN - Past Social History Smoking Status: Former Smoker Alcohol: None Drugs: Denies Home Situation {Lives}: Alone - CARDIAC Hx Cardiac Disorders: Yes Hx Hypercholesterolemia: Yes Hx Hypertension: Yes Other/Comment: CAD-Stent - PULMONARY Hx Respiratory Disorders: Yes Hx Asthma: Yes Hx Chronic Obstructive Pulmonary Disease (COPD): Yes Hx Emphysema: Yes Hx Pneumonia: Yes Hx Sleep Apnea: Yes - NEUROLOGICAL Hx Neurological Disorder: No - HEENT Hx HEENT Problems: No - RENAL Hx Chronic Kidney Disease: No - ENDOCRINE/METABOLIC Hx Endocrine Disorders: No - HEMATOLOGICAL/ONCOLOGICAL Hx Blood Disorders: Yes Hx Anemia: Yes Hx Human Immunodeficiency Virus (HIV): No - INTEGUMENTARY Hx Dermatological Problems: No - MUSCULOSKELETAL/RHEUMATOLOGICAL Hx Musculoskeletal Disorders: Yes Hx Arthritis: Yes (Osteoarthritis (severe)) Hx Rheumatoid Arthritis: Yes - GASTROINTESTINAL Hx Gastrointestinal Disorders: Yes Hx Gastroesophageal Reflux: Yes - GENITOURINARY/GYNECOLOGICAL Hx Genitourinary Disorders: Yes Hx Prostate Problems: Yes - PSYCHIATRIC Hx Psychophysiologic Disorder: Yes Hx Anxiety: Yes - SURGICAL HISTORY Hx Coronary Stent: Yes (x2) - ANESTHESIA Hx Anesthesia: Yes Hx Anesthesia Reactions: No Hx Malignant Hyperthermia: No Has any member of the family had a problem w/ anesthesia?: No Meds Allergies/Adverse Reactions: Allergies Allergy/AdvReac Type Severity Reaction Status Date / Time No Known Allergies Allergy Verified 09/21/16 16:26 Physical Exam - Constitutional Appears: No Acute Distress, Chronically Ill - Head Exam Head Exam: NORMAL INSPECTION - Eye Exam Eye Exam: PERRL - ENT Exam ENT Exam: Normal Exam - Neck Exam Neck exam: Positive for: Normal Inspection - Respiratory Exam Respiratory Exam: Decreased Breath Sounds, Rhonchi (b/l) - Cardiovascular Exam Cardiovascular Exam: REGULAR RHYTHM - GI/Abdominal Exam GI & Abdominal Exam: Normal Bowel Sounds, Soft - Extremities Exam Extremities exam: Positive for: joint swelling, tenderness (B/L knee, elbows, R- L wrist.) - Back Exam Back exam: NORMAL INSPECTION - Neurological Exam Neurological exam: Alert, Oriented x3 Additional comments: No motor sensory deficit - Psychiatric Exam Psychiatric exam: Anxious - Skin Skin Exam: Normal Color, Warm Results - Vital Signs Recent Vital Signs: Last Vital Signs Temp 97.8 F 09/22/16 15:39 Pulse 73 09/22/16 15:39 Resp 20 09/22/16 15:39 BP 113/74 09/22/16 15:39 Pulse Ox 96 09/22/16 15:39 reviewed J.P. - Labs Result Diagrams: 09/23/16 06:00 09/23/16 06:00 Labs: reviewed J.P. - EKG Data EKG comments: reviewed J.P. - Imaging and Cardiology CT scan - chest Status: Report reviewed by me (William) Chest x-ray Status: Report reviewed by me (William) Assessment & Plan (1) COPD exacerbation Status: Acute Priority: High (2) ILD (interstitial lung disease) Status: Acute Priority: High Comment: 2nd to R/A. (3) RA (rheumatoid arthritis) Status: Chronic Priority: High (4) HTN (hypertension) Status: Chronic Priority: Low (5) CAD (coronary artery disease) Status: Chronic Priority: Medium (6) Esophageal reflux Status: Acute Priority: Medium (7) Anxiety Status: Acute Priority: Medium - Assessment and Plan (Free Text) Plan: F/U Blood C-S, U C-S, Sputum C-S, Continue Rocephin, Zithromax, Solumedrol, Phenergan with Co and rest of Tx. PT eval. - Date & Time Date: 09/22/16 Time: 11:40
[2016-09-23] MEDS: Albuterol-Ipratrop 3 mg / 0.5 (3 ml) UD INH SCH ×6 (00:32→19:02)
[2016-09-23] MEDS: methylPREDNISolone 40 MG in Sodium Chloride 0.9% 50 ML IV SCH ×3 (01:25→16:28)
[2016-09-23 06:58] LABS: HEMOGLOBIN 10.6 g/dL (12.0-18.0); MEAN CELL VOLUME 91.2 fl (80.0-94.0); MEAN CORPUSCULAR HEMOGLOBIN 29.6 pg (27.0-31.0); MEAN CORPUSCULAR HGB CONC 32.5 g/dL (33.0-37.0); RBC 3.57 Mil/uL (4.40-5.90); RED CELL DISTRIBUTION WIDTH 16.5 % (11.5-14.5)
[2016-09-23 07:10] LABS: BLOOD UREA NITROGEN 21 mg/dl (9-20); CALCIUM 9.6 mg/dL (8.4-10.2); GFR AFRICAN-AMERICAN > 60; GFR NON-AFRICAN AMERICAN > 60
[2016-09-23 07:11] LABS: WHITE BLOOD COUNT 19.8 K/uL (4.8-10.8)
[2016-09-23] MEDS: Azithromycin 500 MG in Sodium Chloride 0.9% 250 ML IVPB SCH (08:24)
[2016-09-23] MEDS: Tiotropium 18 mcg Cap For Inhalation IH SCH (08:25)
[2016-09-23] MEDS: Pantoprazole 40 mg EC Tab PO SCH (08:25)
--- NOTE | 2016-09-23 13:20 | CP.PCM.PN ---
Subjective - Date & Time of Evaluation Date of Evaluation: 09/23/16 Time of Evaluation: 11:30 - Subjective Subjective: F/U COPD Exacerbation SOB and joint pain improved Objective - Vital Signs/Intake and Output Vital Signs (last 24 hours): Temp Pulse Resp BP Pulse Ox 98 F 62 18 130/85 98 09/23/16 12:00 09/23/16 12:00 09/23/16 12:00 09/23/16 12:00 09/23/16 12:00 - Medications Medications: Current Medications Albuterol/Ipratropium (Duoneb 3 Mg/0.5 Mg (3 Ml) Ud) 3 ml INH RQ4 [facility] Last Admin: 09/23/16 11:07 Dose: 3 ml Alprazolam (Xanax) 0.5 mg PO BID PRN PRN Reason: Anxiety Aspirin (Ecotrin) 81 mg PO DAILY [facility] Last Admin: 09/23/16 08:25 Dose: 81 mg Atorvastatin Calcium (Lipitor) 40 mg PO HS [facility] Last Admin: 09/22/16 21:44 Dose: 40 mg Cholecalciferol (Vitamin D) 1,000 iu PO DAILY [facility] Last Admin: 09/23/16 08:25 Dose: 1,000 iu Folic Acid (Folic Acid) 1 mg PO DAILY [facility] Last Admin: 09/23/16 08:25 Dose: 1 mg Hydroxychloroquine Sulfate (Plaquenil) 400 mg PO DAILY [facility] Last Admin: 09/23/16 08:25 Dose: 400 mg Azithromycin 500 mg/ Sodium (Chloride) 250 mls @ 250 mls/hr IVPB DAILY [facility] Last Admin: 09/23/16 08:24 Dose: 250 mls/hr Ceftriaxone Sodium 1 gm/ (Sodium Chloride) 100 mls @ 100 mls/hr IVPB DAILY [facility] Last Admin: 09/23/16 08:23 Dose: 100 mls/hr Methylprednisolone 40 mg/ (Sodium Chloride) 50 mls @ 100 mls/hr IV Q8 [facility] Last Admin: 09/23/16 08:23 Dose: 100 mls/hr Methotrexate (Methotrexate) 15 mg PO SUN [facility] PRN Reason: Protocol Metoprolol Tartrate (Lopressor) 50 mg PO DAILY [facility] Last Admin: 09/23/16 08:29 Dose: 50 mg Oxycodone/Acetaminophen (Percocet 5/325 Mg Tab) 2 tab PO Q6H PRN PRN Reason: Pain, severe (8-10) Stop: 09/24/16 22:43 Last Admin: 09/22/16 00:15 Dose: 2 tab Pantoprazole Sodium (Protonix Ec Tab) 40 mg PO DAILY [facility] Last Admin: 09/23/16 08:25 Dose: 40 mg Promethazine HCl/Codeine (Phenergan/Codeine Oral Syrup) 10 ml PO Q6 PRN PRN Reason: Cough Tamsulosin HCl (Flomax) 0.4 mg PO HS [facility] Last Admin: 09/22/16 21:44 Dose: 0.4 mg Ticagrelor (Brilinta) 90 mg PO BID [facility] Last Admin: 09/23/16 08:25 Dose: 90 mg Tiotropium Almo (Spiriva) 18 mcg IH DAILY [facility] Last Admin: 09/23/16 08:25 Dose: 18 mcg Zolpidem Tartrate (Ambien) 5 mg PO HS PRN PRN Reason: Insomnia Last Admin: 09/22/16 23:12 Dose: 5 mg - Labs Labs: 09/23/16 06:00 09/23/16 06:00 PT 11.7 Seconds (9.8-13.1) 09/21/16 16:45 INR 1.1 (0.9-1.2) 09/21/16 16:45 APTT 29.4 Seconds (25.6-37.1) 09/21/16 16:45 - Constitutional Appears: No Acute Distress, Chronically Ill - Head Exam Head Exam: NORMAL INSPECTION - Eye Exam Eye Exam: PERRL - ENT Exam ENT Exam: Normal Exam - Neck Exam Neck Exam: Normal Inspection - Respiratory Exam Respiratory Exam: Decreased Breath Sounds, Rhonchi (scattered) - Cardiovascular Exam Cardiovascular Exam: REGULAR RHYTHM - GI/Abdominal Exam GI & Abdominal Exam: Soft, Normal Bowel Sounds - Extremities Exam Extremities Exam: Joint Swelling, Tenderness (b/l knees, elbows, R-L wrist.) - Back Exam Back Exam: NORMAL INSPECTION - Neurological Exam Neurological Exam: Alert, Oriented x3. absent: Motor Sensory Deficit - Psychiatric Exam Psychiatric exam: Anxious - Skin Skin Exam: Normal Color, Warm Assessment and Plan (1) COPD exacerbation Status: Acute (2) ILD (interstitial lung disease) Status: Acute (3) RA (rheumatoid arthritis) Status: Chronic (4) HTN (hypertension) Status: Chronic (5) CAD (coronary artery disease) Status: Chronic (6) Esophageal reflux Status: Acute (7) Anxiety Status: Acute - Assessment and Plan (Free Text) Plan: Continue Solu Medrol , DuoNeb , Ceftriazone , Zithromax , Methotrexate , Percocet and rest of treatment
[2016-09-24 00:01] VITALS: RESP 20
[2016-09-24] MEDS: methylPREDNISolone 40 MG in Sodium Chloride 0.9% 50 ML IV SCH ×2 (00:03→08:21)
[2016-09-24] MEDS: Albuterol-Ipratrop 3 mg / 0.5 (3 ml) UD INH SCH ×7 (00:32→19:27)
[2016-09-24 06:25] LABS: HEMOGLOBIN 10.6 g/dL (12.0-18.0); MEAN CELL VOLUME 91.3 fl (80.0-94.0); MEAN CORPUSCULAR HGB CONC 32.9 g/dL (33.0-37.0); RBC 3.52 Mil/uL (4.40-5.90); WHITE BLOOD COUNT 19.7 K/uL (4.8-10.8)
[2016-09-24] MEDS: Azithromycin 500 MG in Sodium Chloride 0.9% 250 ML IVPB SCH (08:20)
[2016-09-24] MEDS: Pantoprazole 40 mg EC Tab PO SCH (08:21)
[2016-09-24] MEDS: Tiotropium 18 mcg Cap For Inhalation IH SCH (08:22)
--- NOTE | 2016-09-24 12:26 | CP.PCM.PN ---
Subjective - Subjective Subjective: SOB and joint pain improved , chest congestion Objective - Vital Signs/Intake and Output Vital Signs (last 24 hours): Temp Pulse Resp BP Pulse Ox 97.9 F 75 20 120/74 98 09/24/16 08:00 09/24/16 09:00 09/24/16 08:00 09/24/16 08:24 09/24/16 08:00 Intake and Output: 09/24/16 09/24/16 06:59 18:59 Intake Total 250 Balance 250 - Medications Medications: Current Medications Albuterol/Ipratropium (Duoneb 3 Mg/0.5 Mg (3 Ml) Ud) 3 ml INH RQ4 [facility] Last Admin: 09/24/16 11:22 Dose: 3 ml Alprazolam (Xanax) 0.5 mg PO BID PRN PRN Reason: Anxiety Aspirin (Ecotrin) 81 mg PO DAILY [facility] Last Admin: 09/24/16 08:21 Dose: 81 mg Atorvastatin Calcium (Lipitor) 40 mg PO HS [facility] Last Admin: 09/23/16 21:33 Dose: 40 mg Cholecalciferol (Vitamin D) 1,000 iu PO DAILY [facility] Last Admin: 09/24/16 08:22 Dose: 1,000 iu Folic Acid (Folic Acid) 1 mg PO DAILY [facility] Last Admin: 09/24/16 08:21 Dose: 1 mg Hydroxychloroquine Sulfate (Plaquenil) 400 mg PO DAILY [facility] Last Admin: 09/24/16 08:22 Dose: 400 mg Azithromycin 500 mg/ Sodium (Chloride) 250 mls @ 250 mls/hr IVPB DAILY [facility] Last Admin: 09/24/16 08:20 Dose: 250 mls/hr Ceftriaxone Sodium 1 gm/ (Sodium Chloride) 100 mls @ 100 mls/hr IVPB DAILY [facility] Last Admin: 09/24/16 08:21 Dose: 100 mls/hr Methylprednisolone 40 mg/ (Sodium Chloride) 50 mls @ 100 mls/hr IV Q8 [facility] Last Admin: 09/24/16 08:21 Dose: 100 mls/hr Methotrexate (Methotrexate) 15 mg PO SUN [facility] PRN Reason: Protocol Metoprolol Tartrate (Lopressor) 50 mg PO DAILY [facility] Last Admin: 09/24/16 08:24 Dose: 50 mg Oxycodone/Acetaminophen (Percocet 5/325 Mg Tab) 2 tab PO Q6H PRN PRN Reason: Pain, severe (8-10) Stop: 09/24/16 22:43 Last Admin: 09/22/16 00:15 Dose: 2 tab Pantoprazole Sodium (Protonix Ec Tab) 40 mg PO DAILY [facility] Last Admin: 09/24/16 08:21 Dose: 40 mg Promethazine HCl/Codeine (Phenergan/Codeine Oral Syrup) 10 ml PO Q6 PRN PRN Reason: Cough Tamsulosin HCl (Flomax) 0.4 mg PO HS [facility] Last Admin: 09/23/16 21:33 Dose: 0.4 mg Ticagrelor (Brilinta) 90 mg PO BID [facility] Last Admin: 09/24/16 08:21 Dose: 90 mg Tiotropium [place] (Spiriva) 18 mcg IH DAILY [facility] Last Admin: 09/24/16 08:22 Dose: 18 mcg Zolpidem Tartrate (Ambien) 5 mg PO HS PRN PRN Reason: Insomnia Last Admin: 09/23/16 22:20 Dose: 5 mg - Labs Labs: 09/24/16 05:00 09/23/16 06:00 PT 11.7 Seconds (9.8-13.1) 09/21/16 16:45 INR 1.1 (0.9-1.2) 09/21/16 16:45 APTT 29.4 Seconds (25.6-37.1) 09/21/16 16:45 - Constitutional Appears: No Acute Distress - Head Exam Head Exam: NORMAL INSPECTION - Eye Exam Pupil Exam: PERRL - ENT Exam ENT Exam: Normal Oropharynx - Neck Exam Neck Exam: Normal Inspection - Respiratory Exam Respiratory Exam: Decreased Breath Sounds (at bases) - Cardiovascular Exam Cardiovascular Exam: REGULAR RHYTHM - GI/Abdominal Exam GI & Abdominal Exam: Soft, Normal Bowel Sounds - Extremities Exam Extremities Exam: Tenderness (mild B/L Knees , Elbows , wrists) - Back Exam Back Exam: NORMAL INSPECTION - Neurological Exam Neurological Exam: Alert, CN II-XII Intact. absent: Motor Sensory Deficit - Psychiatric Exam Psychiatric exam: Normal Affect, Normal Mood - Skin Skin Exam: Warm Assessment and Plan (1) COPD exacerbation Status: Acute (2) ILD (interstitial lung disease) Status: Acute (3) RA (rheumatoid arthritis) Status: Chronic (4) HTN (hypertension) Status: Chronic (5) CAD (coronary artery disease) Status: Chronic (6) Esophageal reflux Status: Acute (7) Anxiety Status: Acute (8) Leukocytosis Status: Acute - Assessment and Plan (Free Text) Plan: WBC 19.7 2nd to steroids , taper steroids , continue Rocephin , Zithromax ., CXR , continue rest of treatment.
--- NOTE | 2016-09-24 16:17 | RAD ---
HISTORY: f/u COMPARISON: 09/21/2016. TECHNIQUE: Chest PA and lateral FINDINGS: LUNGS: No active pulmonary disease. PLEURA: No significant pleural effusion identified. No pneumothorax apparent. CARDIOVASCULAR: No radiographic findings to suggest acute or significant cardiovascular disease. OSSEOUS STRUCTURES: No significant abnormalities. VISUALIZED UPPER ABDOMEN: Normal. OTHER FINDINGS: None. IMPRESSION: No active disease. No significant interval change compared to the prior examination(s).
[2016-09-24] MEDS: methylPREDNISolone 30 MG in Sodium Chloride 0.9% 50 ML IV SCH (17:08)
[2016-09-25] MEDS: Albuterol-Ipratrop 3 mg / 0.5 (3 ml) UD INH SCH ×5 (00:35→15:41)
[2016-09-25] MEDS: methylPREDNISolone 30 MG in Sodium Chloride 0.9% 50 ML IV SCH ×3 (00:39→16:28)
[2016-09-25 08:13] VITALS: O2SAT 98
[2016-09-25] MEDS: Pantoprazole 40 mg EC Tab PO SCH (10:01)
[2016-09-25] MEDS: Tiotropium 18 mcg Cap For Inhalation IH SCH (10:03)
[2016-09-25] MEDS: Azithromycin 500 MG in Sodium Chloride 0.9% 250 ML IVPB SCH (10:57)
--- NOTE | 2016-09-25 11:41 | CP.PCM.PN ---
Subjective - Subjective Subjective: Dry cough, chest congestion Objective - Vital Signs/Intake and Output Vital Signs (last 24 hours): Temp Pulse Resp BP Pulse Ox 97.6 F 61 20 144/77 98 09/25/16 08:00 09/25/16 09:59 09/25/16 08:00 09/25/16 09:59 09/25/16 08:00 - Medications Medications: Current Medications Albuterol/Ipratropium (Duoneb 3 Mg/0.5 Mg (3 Ml) Ud) 3 ml INH RQ4 [facility] Last Admin: 09/25/16 07:49 Dose: 3 ml Alprazolam (Xanax) 0.5 mg PO BID PRN PRN Reason: Anxiety Aspirin (Ecotrin) 81 mg PO DAILY [facility] Last Admin: 09/25/16 09:58 Dose: 81 mg Atorvastatin Calcium (Lipitor) 40 mg PO HS [facility] Last Admin: 09/24/16 21:41 Dose: 40 mg Cholecalciferol (Vitamin D) 1,000 iu PO DAILY [facility] Last Admin: 09/25/16 10:02 Dose: 1,000 iu Folic Acid (Folic Acid) 1 mg PO DAILY [facility] Last Admin: 09/25/16 09:58 Dose: 1 mg Hydroxychloroquine Sulfate (Plaquenil) 400 mg PO DAILY [facility] Last Admin: 09/25/16 10:00 Dose: 400 mg Azithromycin 500 mg/ Sodium (Chloride) 250 mls @ 250 mls/hr IVPB DAILY [facility] Last Admin: 09/25/16 10:57 Dose: 250 mls/hr Ceftriaxone Sodium 1 gm/ (Sodium Chloride) 100 mls @ 100 mls/hr IVPB DAILY [facility] Last Admin: 09/25/16 10:53 Dose: 100 mls/hr Methylprednisolone 30 mg/ (Sodium Chloride) 50 mls @ 100 mls/hr IV Q8 [facility] Last Admin: 09/25/16 10:01 Dose: 100 mls/hr Methotrexate (Methotrexate) 15 mg PO SUN [facility] PRN Reason: Protocol Metoprolol Tartrate (Lopressor) 50 mg PO DAILY [facility] Last Admin: 09/25/16 09:59 Dose: 50 mg Pantoprazole Sodium (Protonix Ec Tab) 40 mg PO DAILY [facility] Last Admin: 09/25/16 10:01 Dose: 40 mg Promethazine HCl/Codeine (Phenergan/Codeine Oral Syrup) 10 ml PO Q6 PRN PRN Reason: Cough Tamsulosin HCl (Flomax) 0.4 mg PO HS [facility] Last Admin: 09/24/16 21:41 Dose: 0.4 mg Ticagrelor (Brilinta) 90 mg PO BID [facility] Last Admin: 09/25/16 09:58 Dose: 90 mg Tiotropium [place] (Spiriva) 18 mcg IH DAILY [facility] Last Admin: 09/25/16 10:03 Dose: 18 mcg Zolpidem Tartrate (Ambien) 5 mg PO HS PRN PRN Reason: Insomnia Last Admin: 09/24/16 21:41 Dose: 5 mg - Labs Labs: 09/24/16 05:00 09/23/16 06:00 PT 11.7 Seconds (9.8-13.1) 09/21/16 16:45 INR 1.1 (0.9-1.2) 09/21/16 16:45 APTT 29.4 Seconds (25.6-37.1) 09/21/16 16:45 - Constitutional Appears: No Acute Distress - Head Exam Head Exam: ATRAUMATIC Additional comments: Cushinoid face - Eye Exam Eye Exam: PERRL - ENT Exam ENT Exam: Normal Oropharynx - Neck Exam Neck Exam: Normal Inspection - Respiratory Exam Respiratory Exam: Decreased Breath Sounds (bases), Wheezes (at bases) - Cardiovascular Exam Cardiovascular Exam: REGULAR RHYTHM - GI/Abdominal Exam GI & Abdominal Exam: Soft, Normal Bowel Sounds - Extremities Exam Extremities Exam: Tenderness (Mild tenderness R L hand , R L knee) - Back Exam Back Exam: NORMAL INSPECTION - Neurological Exam Neurological Exam: Alert, CN II-XII Intact, Oriented x3. absent: Motor Sensory Deficit - Psychiatric Exam Psychiatric exam: Normal Affect, Normal Mood - Skin Skin Exam: Warm Assessment and Plan (1) COPD exacerbation Status: Acute (2) ILD (interstitial lung disease) Status: Acute (3) RA (rheumatoid arthritis) Status: Chronic (4) HTN (hypertension) Status: Chronic (5) CAD (coronary artery disease) Status: Chronic (6) Esophageal reflux Status: Acute (7) Anxiety Status: Acute (8) Leukocytosis Status: Acute - Assessment and Plan (Free Text) Plan: Still bronchospasm , WBC 19.7 , continue Rocephin , Zithromax , Solu Medrol and rest of treatment , transfer to U
[2016-09-25 16:58] VITALS: BP 119/75; PULSE 63; TEMP 98.4
== END 2016-09-25 17:47 | DRG 192 ==
LOC: H.ER 16:22 → H.ERHOLD 18:28 → H.TEL 20:58 → OBSVTOIN 09-22 10:54
PROVIDERS: ADMIT Internal Medicine Pulmonary Disease; ATTEND Internal Medicine Pulmonary Disease
DX: J44.1 Chronic obstructive pulmonary disease with (acute) exacerbation (principal); M05.10 Rheumatoid lung disease with rheumatoid arthritis of unspecified site; I10 Essential (primary) hypertension; I25.10 Atherosclerotic heart disease of native coronary artery without angina pectoris; K21.9 Gastro-esophageal reflux disease without esophagitis; F41.9 Anxiety disorder, unspecified; M19.90 Unspecified osteoarthritis, unspecified site; Z87.891 Personal history of nicotine dependence

== ENCOUNTER 2016-09-25 16:15 | Inpatient (IN) | payer OTHER, MEDICAID ==
[2016-09-25 17:36] VITALS: BMI 31.6
[2016-09-25] MEDS ORDERED: Promethazine/Cod 6.25mg-10mg/5ml Syr UD PO PRN (18:03)
[2016-09-25] MEDS ORDERED: Oxycodone/Acetaminophen 5/325 mg Tab PO PRN (18:03)
[2016-09-25] MEDS: Albuterol-Ipratrop 3 mg / 0.5 (3 ml) UD INH SCH ×2 (19:59→23:29)
[2016-09-26] MEDS: methylPREDNISolone 30 MG in Sodium Chloride 0.9% 50 ML IV SCH ×3 (00:15→17:19)
[2016-09-26] MEDS ORDERED: MethylPREDNISolone 40 mg Vial IV SCH (01:00)
[2016-09-26] MEDS: Albuterol-Ipratrop 3 mg / 0.5 (3 ml) UD INH SCH ×6 (04:13→23:15)
[2016-09-26] MEDS: Tiotropium 18 mcg Cap For Inhalation IH SCH (08:46)
[2016-09-26] MEDS: Azithromycin 500 MG in Sodium Chloride 0.9% 250 ML IVPB SCH (08:54)
[2016-09-26] MEDS ORDERED: cefTRIAXone IV 1 gm in Dextros 50 ML BAG IVPB SCH (09:00)
[2016-09-26 17:21] VITALS: RESP 20
--- NOTE | 2016-09-26 19:27 | CP.PCM.HP ---
History of Present Illness - History of Present Illness History of Present Illness: 70 y/o M, admitted to [facility], Telemetry floor on 09/22/16 due to COPD Exacerbation. On 09/25/16 Pt improved and was transferred to TCU Unit to continue Abx , Solu Medrol IV treatment. Pt denied: Fever, chills, n/v/d, abdominal pain, dizziness, CP, palpitations. PMHx: COPD, Emphysema, Asthma, ILD , ANDRZEJ, PNA, HTN, Coronary Stent x2, R/A, O/ A, Anemia, BPH, Anxiety, Hx. Shingles. Present on Admission - Present on Admission Any Indicators Present on Admission: No Review of Systems - Constitutional Constitutional: Other (negative) - EENT Eyes: Requires Corrective Lenses Ears: Other (negative) Nose/Mouth/Throat: Other (negative) - Cardiovascular Cardiovascular: Other (negative) - Respiratory Respiratory: Cough, Chest Congestion - Gastrointestinal Gastrointestinal: Other (negative) - Genitourinary Genitourinary: Other (negative) - Musculoskeletal Musculoskeletal: Arthralgias - Integumentary Integumentary: Other (negative) - Neurological Neurological: Other (negative) - Psychiatric Psychiatric: Anxiety - Endocrine Endocrine: Other (negative) - Hematologic/Lymphatic Hematologic: Other (negative) Past Patient History - Past Medical History & Family History Past Medical History?: Yes Pertinent Family History: [place], HTN - Past Social History Smoking Status: Former Smoker Alcohol: None Drugs: Denies Home Situation {Lives}: Alone - CARDIAC Hx Cardiac Disorders: Yes Hx Hypercholesterolemia: Yes Hx Hypertension: Yes - PULMONARY Hx Chronic Obstructive Pulmonary Disease (COPD): Yes - NEUROLOGICAL Hx Neurological Disorder: No - HEENT Hx HEENT Problems: No - RENAL Hx Chronic Kidney Disease: No - ENDOCRINE/METABOLIC Hx Endocrine Disorders: No - HEMATOLOGICAL/ONCOLOGICAL Hx Blood Disorders: Yes Hx AIDS: No Hx Anemia: Yes Hx Human Immunodeficiency Virus (HIV): No - INTEGUMENTARY Hx Dermatological Problems: No - MUSCULOSKELETAL/RHEUMATOLOGICAL Hx Arthritis: Yes (Osteoarthritis (severe)) Hx Rheumatoid Arthritis: Yes - GASTROINTESTINAL Hx Gastrointestinal Disorders: Yes Hx Gastroesophageal Reflux: Yes - GENITOURINARY/GYNECOLOGICAL Hx Genitourinary Disorders: Yes Hx Prostate Problems: Yes - PSYCHIATRIC Hx Psychophysiologic Disorder: Yes Hx Anxiety: Yes Hx Substance Use: No - SURGICAL HISTORY Hx Coronary Stent: Yes (x2) - ANESTHESIA Hx Anesthesia: Yes Hx Anesthesia Reactions: No Hx Malignant Hyperthermia: No Meds Allergies/Adverse Reactions: Allergies Allergy/AdvReac Type Severity Reaction Status Date / Time No Known Allergies Allergy Verified 09/25/16 17:37 Physical Exam - Constitutional Appears: No Acute Distress - Head Exam Additional comments: Cushinoid face - Eye Exam Eye Exam: PERRL - ENT Exam ENT Exam: Normal Exam - Neck Exam Neck exam: Positive for: Normal Inspection - Respiratory Exam Respiratory Exam: Decreased Breath Sounds (at bases), Wheezes (few at bases) - Cardiovascular Exam Cardiovascular Exam: REGULAR RHYTHM - GI/Abdominal Exam GI & Abdominal Exam: Normal Bowel Sounds, Soft - Extremities Exam Extremities exam: Positive for: tenderness (mild R-L hands, R-L knee) - Back Exam Back exam: NORMAL INSPECTION - Neurological Exam Neurological exam: Alert, CN II-XII Intact, Oriented x3 Additional comments: No motor sensory deficit - Psychiatric Exam Psychiatric exam: Normal Affect, Normal Mood - Skin Skin Exam: Warm Results - Vital Signs Recent Vital Signs: Last Vital Signs Temp 97.9 F 09/26/16 17:20 Pulse 61 09/26/16 17:20 Resp 20 09/26/16 17:20 BP 124/78 09/26/16 17:20 Pulse Ox 97 09/26/16 17:20 reviewed J.P. - Labs Result Diagrams: 09/27/16 07:30 09/27/16 04:00 Labs: reviewed J.P. Assessment & Plan (1) COPD exacerbation Status: Acute Priority: High (2) Leukocytosis Status: Acute (3) ILD (interstitial lung disease) Status: Acute Priority: High (4) CAD (coronary artery disease) Status: Chronic Priority: Medium (5) HTN (hypertension) Status: Chronic Priority: Low (6) RA (rheumatoid arthritis) Status: Chronic Priority: High (7) Anxiety Status: Acute Priority: Medium (8) Esophageal reflux Status: Acute Priority: Medium - Assessment and Plan (Free Text) Plan: Continue Zithromax, Rocephin, Solumedrol, Duoneb and rest of Tx, PT, OT. - Date & Time Date: 09/26/16 Time: 11:00
[2016-09-27] MEDS: methylPREDNISolone 30 MG in Sodium Chloride 0.9% 50 ML IV SCH ×3 (01:10→20:14)
[2016-09-27] MEDS: Albuterol-Ipratrop 3 mg / 0.5 (3 ml) UD INH SCH ×6 (04:46→23:42)
[2016-09-27 08:42] LABS: BASO % 0.1 % (0.0-2.0); HEMOGLOBIN 11.9 g/dL (12.0-18.0); LYMPH # 1.2 K/uL (1.0-4.3); LYMPH % 6.1 % (20.0-40.0); MEAN CELL VOLUME 91.1 fl (80.0-94.0); MEAN CORPUSCULAR HEMOGLOBIN 29.9 pg (27.0-31.0); MEAN CORPUSCULAR HGB CONC 32.8 g/dL (33.0-37.0); MEAN PLATELET VOLUME 10.3 fl (7.2-11.7); MONO # 1.1 K/uL (0.0-0.8); MONO % 5.5 % (0.0-10.0); NEUT # 17.6 K/uL (1.8-7.0); NEUT % 88.3 % (50.0-75.0); NRBC % 0.3 % (0.0-0.0); PLATELET COUNT 275 K/uL (130-400); RBC 3.99 Mil/uL (4.40-5.90); RED CELL DISTRIBUTION WIDTH 16.3 % (11.5-14.5); WHITE BLOOD COUNT 19.9 K/uL (4.8-10.8)
[2016-09-27 08:59] LABS: BLOOD UREA NITROGEN 27 mg/dl (9-20); CALCIUM 9.4 mg/dL (8.4-10.2); GFR AFRICAN-AMERICAN > 60; GFR NON-AFRICAN AMERICAN > 60
[2016-09-27] MEDS: Tiotropium 18 mcg Cap For Inhalation IH SCH (09:06)
[2016-09-27 09:28] LABS: LYMPHOCYTE 5 % (20-50); MONOCYTE 3 % (0-10); NEUTROPHIL 92 % (42-75); TOTAL CELLS COUNTED 100
[2016-09-27 09:30] LABS: PLATELET ESTIMATE NORMAL (NORMAL)
[2016-09-27] MEDS: Azithromycin 500 MG in Sodium Chloride 0.9% 250 ML IVPB SCH (11:16)
--- NOTE | 2016-09-27 13:09 | CP.PCM.PN ---
Subjective - Date & Time of Evaluation Date of Evaluation: 09/27/16 Time of Evaluation: 11:45 - Subjective Subjective: Occasional dry cough , no SOB Objective - Vital Signs/Intake and Output Vital Signs (last 24 hours): Temp Pulse Resp BP Pulse Ox 97.9 F 79 20 122/83 99 09/27/16 08:07 09/27/16 09:05 09/27/16 08:07 09/27/16 09:05 09/27/16 08:07 - Medications Medications: Current Medications Albuterol/Ipratropium (Duoneb 3 Mg/0.5 Mg (3 Ml) Ud) 3 ml INH RQ4 [facility] Last Admin: 09/27/16 11:21 Dose: 3 ml Alprazolam (Xanax) 0.5 mg PO BID PRN PRN Reason: Anxiety Aspirin (Ecotrin) 81 mg PO DAILY [facility] Last Admin: 09/27/16 09:05 Dose: 81 mg Atorvastatin Calcium (Lipitor) 40 mg PO HS [facility] Last Admin: 09/26/16 21:53 Dose: 40 mg Cholecalciferol (Vitamin D) 1,000 iu PO DAILY [facility] Last Admin: 09/27/16 09:06 Dose: 1,000 iu Folic Acid (Folic Acid) 1 mg PO DAILY [facility] Last Admin: 09/27/16 09:07 Dose: 1 mg Hydroxychloroquine Sulfate (Plaquenil) 400 mg PO DAILY [facility] Last Admin: 09/27/16 09:07 Dose: 400 mg Azithromycin 500 mg/ Sodium (Chloride) 250 mls @ 250 mls/hr IVPB DAILY [facility] Last Admin: 09/27/16 11:16 Dose: 250 mls/hr Ceftriaxone Sodium 1 gm/ (Sodium Chloride) 100 mls @ 100 mls/hr IVPB DAILY [facility] Last Admin: 09/27/16 09:59 Dose: 100 mls/hr Methylprednisolone 30 mg/ (Sodium Chloride) 50 mls @ 100 mls/hr IV Q12 [facility] Methotrexate (Methotrexate) 15 mg PO [facility] PRN Reason: Protocol Metoprolol Tartrate (Lopressor) 50 mg PO DAILY [facility] Last Admin: 09/27/16 09:05 Dose: 50 mg Oxycodone/Acetaminophen (Percocet 5/325 Mg Tab) 2 tab PO Q6H PRN PRN Reason: Pain, severe (8-10) Promethazine HCl/Codeine (Phenergan/Codeine Oral Syrup) 10 ml PO Q6 PRN PRN Reason: Cough Tamsulosin HCl (Flomax) 0.4 mg PO [facility] Last Admin: 09/26/16 21:53 Dose: 0.4 mg Ticagrelor (Brilinta) 90 mg PO BID [facility] Last Admin: 09/27/16 09:04 Dose: 90 mg Tiotropium [place] (Spiriva) 18 mcg IH DAILY [facility] Last Admin: 09/27/16 09:06 Dose: 18 mcg Zolpidem Tartrate (Ambien) 5 mg PO HS [facility] Last Admin: 09/26/16 21:53 Dose: 5 mg - Labs Labs: 09/27/16 07:30 09/27/16 04:00 - Constitutional Appears: No Acute Distress - Head Exam Additional comments: Cushinoid face - Eye Exam Eye Exam: PERRL - ENT Exam ENT Exam: Normal Oropharynx - Neck Exam Neck Exam: Normal Inspection - Respiratory Exam Respiratory Exam: Decreased Breath Sounds (at bases), Wheezes (few at bases) - Cardiovascular Exam Cardiovascular Exam: REGULAR RHYTHM - GI/Abdominal Exam GI & Abdominal Exam: Soft, Normal Bowel Sounds - Extremities Exam Extremities Exam: Tenderness (mild R L hands , RL knee) - Back Exam Back Exam: NORMAL INSPECTION - Neurological Exam Neurological Exam: Alert, CN II-XII Intact, Oriented x3. absent: Motor Sensory Deficit - Psychiatric Exam Psychiatric exam: Normal Affect, Normal Mood - Skin Skin Exam: Warm Assessment and Plan (1) COPD exacerbation Status: Acute (2) Leukocytosis Status: Acute (3) ILD (interstitial lung disease) Status: Acute (4) CAD (coronary artery disease) Status: Chronic (5) HTN (hypertension) Status: Chronic (6) RA (rheumatoid arthritis) Status: Chronic (7) Anxiety Status: Acute (8) Esophageal reflux Status: Acute - Assessment and Plan (Free Text) Plan: WBC 19.9 , taper Solu Medrol, continue rest of treatment
[2016-09-28] MEDS: Albuterol-Ipratrop 3 mg / 0.5 (3 ml) UD INH SCH ×6 (05:00→23:38)
[2016-09-28] MEDS: Tiotropium 18 mcg Cap For Inhalation IH SCH (08:21)
[2016-09-28] MEDS: methylPREDNISolone 30 MG in Sodium Chloride 0.9% 50 ML IV SCH ×2 (08:25→21:15)
--- NOTE | 2016-09-28 13:06 | CP.PCM.PN ---
Subjective - Date & Time of Evaluation Date of Evaluation: 09/28/16 Time of Evaluation: 12:30 - Subjective Subjective: F/U COPD Exacerbation. No c/o, no cough, no SOB. Objective - Vital Signs/Intake and Output Vital Signs (last 24 hours): Temp Pulse Resp BP Pulse Ox 97.5 F L 67 20 120/78 97 09/28/16 08:11 09/28/16 08:21 09/28/16 08:11 09/28/16 08:21 09/28/16 08:11 - Medications Medications: Current Medications Albuterol/Ipratropium (Duoneb 3 Mg/0.5 Mg (3 Ml) Ud) 3 ml INH RQ4 [facility] Last Admin: 09/28/16 11:33 Dose: 3 ml Alprazolam (Xanax) 0.5 mg PO BID PRN PRN Reason: Anxiety Aspirin (Ecotrin) 81 mg PO DAILY [facility] Last Admin: 09/28/16 08:22 Dose: 81 mg Atorvastatin Calcium (Lipitor) 40 mg PO HS [facility] Last Admin: 09/27/16 21:07 Dose: 40 mg Cholecalciferol (Vitamin D) 1,000 iu PO DAILY [facility] Last Admin: 09/28/16 08:22 Dose: 1,000 iu Folic Acid (Folic Acid) 1 mg PO DAILY [facility] Last Admin: 09/28/16 08:22 Dose: 1 mg Hydroxychloroquine Sulfate (Plaquenil) 400 mg PO DAILY [facility] Last Admin: 09/28/16 08:21 Dose: 400 mg Ceftriaxone Sodium 1 gm/ (Sodium Chloride) 100 mls @ 100 mls/hr IVPB DAILY [facility] Last Admin: 09/28/16 08:25 Dose: 100 mls/hr Methylprednisolone 30 mg/ (Sodium Chloride) 50 mls @ 100 mls/hr IV Q12 [facility] Last Admin: 09/28/16 08:25 Dose: 100 mls/hr Azithromycin 500 mg/ Sodium (Chloride) 250 mls @ 250 mls/hr IVPB DAILY@1700 [facility] Methotrexate (Methotrexate) 15 mg PO SUN [facility] PRN Reason: Protocol Last Admin: 09/28/16 08:22 Dose: 15 mg Metoprolol Tartrate (Lopressor) 50 mg PO DAILY [facility] Last Admin: 09/28/16 08:21 Dose: 50 mg Oxycodone/Acetaminophen (Percocet 5/325 Mg Tab) 2 tab PO Q6H PRN PRN Reason: Pain, severe (8-10) Promethazine HCl/Codeine (Phenergan/Codeine Oral Syrup) 10 ml PO Q6 PRN PRN Reason: Cough Tamsulosin HCl (Flomax) 0.4 mg PO HS [facility] Last Admin: 09/27/16 21:07 Dose: 0.4 mg Ticagrelor (Brilinta) 90 mg PO BID [facility] Last Admin: 09/28/16 08:22 Dose: 90 mg Tiotropium [place] (Spiriva) 18 mcg IH DAILY [facility] Last Admin: 09/28/16 08:21 Dose: 18 mcg Zolpidem Tartrate (Ambien) 5 mg PO HS [facility] Last Admin: 09/27/16 22:39 Dose: 5 mg - Labs Labs: 09/27/16 07:30 09/27/16 04:00 - Constitutional Appears: No Acute Distress - Head Exam Head Exam: NORMAL INSPECTION Additional comments: Cushinoid face. - Eye Exam Eye Exam: PERRL - ENT Exam ENT Exam: Normal Exam - Neck Exam Neck Exam: Normal Inspection - Respiratory Exam Respiratory Exam: Decreased Breath Sounds (at bases) - Cardiovascular Exam Cardiovascular Exam: REGULAR RHYTHM - GI/Abdominal Exam GI & Abdominal Exam: Soft, Normal Bowel Sounds - Extremities Exam Extremities Exam: Tenderness (mild R-L hands, R-L knee) - Back Exam Back Exam: NORMAL INSPECTION - Neurological Exam Neurological Exam: Alert, CN II-XII Intact, Oriented x3. absent: Motor Sensory Deficit - Psychiatric Exam Psychiatric exam: Normal Affect, Normal Mood - Skin Skin Exam: Warm Assessment and Plan (1) COPD exacerbation Assessment & Plan: Improved. Status: Acute (2) Leukocytosis Status: Acute (3) ILD (interstitial lung disease) Status: Acute (4) CAD (coronary artery disease) Status: Chronic (5) HTN (hypertension) Status: Chronic (6) RA (rheumatoid arthritis) Status: Chronic (7) Anxiety Status: Acute (8) Esophageal reflux Status: Acute - Assessment and Plan (Free Text) Plan: To have CBC, SMA 7 tomorrow, continue current Tx.
[2016-09-28] MEDS: Azithromycin 500 MG in Sodium Chloride 0.9% 250 ML IVPB SCH (17:21)
[2016-09-29] MEDS: Albuterol-Ipratrop 3 mg / 0.5 (3 ml) UD INH SCH ×6 (04:01→23:25)
[2016-09-29 07:25] LABS: HEMOGLOBIN 12.5 g/dL (12.0-18.0); MEAN CELL VOLUME 90.3 fl (80.0-94.0); MEAN CORPUSCULAR HEMOGLOBIN 29.7 pg (27.0-31.0); MEAN CORPUSCULAR HGB CONC 32.8 g/dL (33.0-37.0); PLATELET COUNT 316 K/uL (130-400); RBC 4.21 Mil/uL (4.40-5.90); RED CELL DISTRIBUTION WIDTH 16.6 % (11.5-14.5); WHITE BLOOD COUNT 26.3 K/uL (4.8-10.8)
[2016-09-29 07:42] LABS: BLOOD UREA NITROGEN 27 mg/dl (9-20); CALCIUM 9.2 mg/dL (8.4-10.2); GFR AFRICAN-AMERICAN > 60; GFR NON-AFRICAN AMERICAN > 60
[2016-09-29] MEDS: Tiotropium 18 mcg Cap For Inhalation IH SCH (08:21)
[2016-09-29] MEDS: methylPREDNISolone 30 MG in Sodium Chloride 0.9% 50 ML IV SCH (08:26)
[2016-09-29 09:18] LABS: BANDS 1 % (0-2); LYMPHOCYTE 3 % (20-50); MONOCYTE 5 % (0-10); MYELOCYTE 3 % (0-0); NEUTROPHIL 88 % (42-75); PLATELET ESTIMATE NORMAL (NORMAL); TOTAL CELLS COUNTED 100
[2016-09-29 09:19] LABS: ANISOCYTOSIS SLIGHT; POIKILOCYTOSIS SLIGHT
[2016-09-29 09:20] LABS: ACANTHOCYTES SLIGHT; BURR CELLS SLIGHT; GIANT PLATELETS PRESENT; HYPERSEGMENTATION PRESENT; LARGE PLATELETS PRESENT; TEARDROP CELLS SLIGHT
[2016-09-29 15:53] VITALS: O2SAT 98
[2016-09-29] MEDS: Azithromycin 500 MG in Sodium Chloride 0.9% 250 ML IVPB SCH (16:49)
--- NOTE | 2016-09-29 16:50 | CP.PCM.PN ---
Subjective - Date & Time of Evaluation Date of Evaluation: 09/29/16 Time of Evaluation: 11:30 - Subjective Subjective: F/U COPD Exacerbation Pt with no c/o, no SOB, no congestion. Objective - Vital Signs/Intake and Output Vital Signs (last 24 hours): Temp Pulse Resp BP Pulse Ox 97.3 F L 61 20 112/67 98 09/29/16 15:53 09/29/16 15:53 09/29/16 15:53 09/29/16 15:53 09/29/16 15:53 - Medications Medications: Current Medications Albuterol/Ipratropium (Duoneb 3 Mg/0.5 Mg (3 Ml) Ud) 3 ml INH RQ4 [facility] Last Admin: 09/29/16 15:18 Dose: 3 ml Alprazolam (Xanax) 0.5 mg PO BID PRN PRN Reason: Anxiety Last Admin: 09/29/16 08:46 Dose: 0.5 mg Aspirin (Ecotrin) 81 mg PO DAILY [facility] Last Admin: 09/29/16 08:22 Dose: 81 mg Atorvastatin Calcium (Lipitor) 40 mg PO HS [facility] Last Admin: 09/28/16 22:29 Dose: 40 mg Cholecalciferol (Vitamin D) 1,000 iu PO DAILY [facility] Last Admin: 09/29/16 08:22 Dose: 1,000 iu Folic Acid (Folic Acid) 1 mg PO DAILY [facility] Last Admin: 09/29/16 08:22 Dose: 1 mg Hydroxychloroquine Sulfate (Plaquenil) 400 mg PO DAILY [facility] Last Admin: 09/29/16 08:22 Dose: 400 mg Ceftriaxone Sodium 1 gm/ (Sodium Chloride) 100 mls @ 100 mls/hr IVPB DAILY [facility] Last Admin: 09/29/16 08:26 Dose: 100 mls/hr Azithromycin 500 mg/ Sodium (Chloride) 250 mls @ 250 mls/hr IVPB DAILY@1700 [facility] Last Admin: 09/28/16 17:21 Dose: 250 mls/hr Methylprednisolone 30 mg/ (Sodium Chloride) 50 mls @ 100 mls/hr IV DAILY [facility] Methotrexate (Methotrexate) 15 mg PO SUN [facility] PRN Reason: Protocol Last Admin: 09/28/16 08:22 Dose: 15 mg Metoprolol Tartrate (Lopressor) 50 mg PO DAILY [facility] Last Admin: 09/29/16 08:22 Dose: 50 mg Oxycodone/Acetaminophen (Percocet 5/325 Mg Tab) 2 tab PO Q6H PRN PRN Reason: Pain, severe (8-10) Promethazine HCl/Codeine (Phenergan/Codeine Oral Syrup) 10 ml PO Q6 PRN PRN Reason: Cough Tamsulosin HCl (Flomax) 0.4 mg PO [facility] Last Admin: 09/28/16 22:31 Dose: 0.4 mg Ticagrelor (Brilinta) 90 mg PO BID [facility] Last Admin: 09/29/16 08:21 Dose: 90 mg Tiotropium [place] (Spiriva) 18 mcg IH DAILY [facility] Last Admin: 09/29/16 08:21 Dose: 18 mcg Zolpidem Tartrate (Ambien) 5 mg PO [facility] Last Admin: 09/28/16 22:29 Dose: 5 mg - Labs Labs: 09/29/16 06:30 09/29/16 06:30 - Constitutional Appears: No Acute Distress - Head Exam Additional comments: Cushinoid face - Eye Exam Eye Exam: PERRL - ENT Exam ENT Exam: Normal Oropharynx - Neck Exam Neck Exam: Normal Inspection - Respiratory Exam Respiratory Exam: Decreased Breath Sounds (at bases) - Cardiovascular Exam Cardiovascular Exam: REGULAR RHYTHM - GI/Abdominal Exam GI & Abdominal Exam: Soft, Normal Bowel Sounds - Extremities Exam Extremities Exam: Tenderness (mild R-L hand, R-L knee) - Back Exam Back Exam: NORMAL INSPECTION - Neurological Exam Neurological Exam: Alert, CN II-XII Intact, Oriented x3. absent: Motor Sensory Deficit - Psychiatric Exam Psychiatric exam: Normal Affect, Normal Mood - Skin Skin Exam: Warm Assessment and Plan (1) COPD exacerbation Status: Acute (2) Leukocytosis Status: Acute (3) ILD (interstitial lung disease) Status: Acute (4) CAD (coronary artery disease) Status: Chronic (5) HTN (hypertension) Status: Chronic (6) RA (rheumatoid arthritis) Status: Chronic (7) Anxiety Status: Acute (8) Esophageal reflux Status: Acute - Assessment and Plan (Free Text) Plan: Marked Leukocytosis WBC increased to 26.3, further noam steroid, Hematology consult
[2016-09-30] MEDS: Albuterol-Ipratrop 3 mg / 0.5 (3 ml) UD INH SCH ×3 (04:59→11:17)
[2016-09-30 08:09] VITALS: BP 106/63; PULSE 80; TEMP 97.7
[2016-09-30] MEDS: Tiotropium 18 mcg Cap For Inhalation IH SCH (08:39)
[2016-09-30] MEDS ORDERED: methylPREDNISolone 30 MG in Sodium Chloride 0.9% 50 ML IV SCH (09:00)
--- NOTE | 2016-09-30 09:32 | CP.PCM.CON ---
History of Present Illness - History of Present Illness History of Present Illness: This is a 70 yrs old male who was admitted with c/o exacerbation of COPD. He also has a past h/o emphysema,,asthma, osteoarthritis, rheumatoid arthritis, pneumonia,CAD with placement of 2 stents, BPH . he has been admitted since the , and has been on antibiotics and and steroids. His WBc went from 12 to 26 today with a left shift. and hgb 11gms to 12.5 gms.. Platelet are normal. I was called for leukocytosis. Past Patient History - Past Medical History & Family History Past Medical History?: Yes - Past Social History Smoking Status: Former Smoker Alcohol: None Drugs: Denies Home Situation {Lives}: Alone - CARDIAC Hx Cardiac Disorders: Yes Hx Hypercholesterolemia: Yes Hx Hypertension: Yes - PULMONARY Hx Chronic Obstructive Pulmonary Disease (COPD): Yes - NEUROLOGICAL Hx Neurological Disorder: No - HEENT Hx HEENT Problems: No - RENAL Hx Chronic Kidney Disease: No - ENDOCRINE/METABOLIC Hx Endocrine Disorders: No - HEMATOLOGICAL/ONCOLOGICAL Hx Blood Disorders: Yes Hx AIDS: No Hx Anemia: Yes Hx Human Immunodeficiency Virus (HIV): No - INTEGUMENTARY Hx Dermatological Problems: No - MUSCULOSKELETAL/RHEUMATOLOGICAL Hx Arthritis: Yes (Osteoarthritis (severe)) Hx Rheumatoid Arthritis: Yes - GASTROINTESTINAL Hx Gastrointestinal Disorders: Yes Hx Gastroesophageal Reflux: Yes - GENITOURINARY/GYNECOLOGICAL Hx Genitourinary Disorders: Yes Hx Prostate Problems: Yes - PSYCHIATRIC Hx Psychophysiologic Disorder: Yes Hx Anxiety: Yes Hx Substance Use: No - SURGICAL HISTORY Hx Coronary Stent: Yes (x2) - ANESTHESIA Hx Anesthesia: Yes Hx Anesthesia Reactions: No Hx Malignant Hyperthermia: No Meds Allergies/Adverse Reactions: Allergies Allergy/AdvReac Type Severity Reaction Status Date / Time No Known Allergies Allergy Verified 09/25/16 17:37 - Medications Medications: Current Medications Albuterol/Ipratropium (Duoneb 3 Mg/0.5 Mg (3 Ml) Ud) 3 ml INH RQ4 [facility] Last Admin: 09/30/16 07:55 Dose: 3 ml Alprazolam (Xanax) 0.5 mg PO BID PRN PRN Reason: Anxiety Last Admin: 09/29/16 08:46 Dose: 0.5 mg Aspirin (Ecotrin) 81 mg PO DAILY [facility] Last Admin: 09/30/16 08:39 Dose: 81 mg Atorvastatin Calcium (Lipitor) 40 mg PO HS [facility] Last Admin: 09/29/16 22:03 Dose: 40 mg Cholecalciferol (Vitamin D) 1,000 iu PO DAILY [facility] Last Admin: 09/30/16 08:38 Dose: 1,000 iu Folic Acid (Folic Acid) 1 mg PO DAILY [facility] Last Admin: 09/30/16 08:38 Dose: 1 mg Hydroxychloroquine Sulfate (Plaquenil) 400 mg PO DAILY [facility] Last Admin: 09/30/16 08:40 Dose: 400 mg Ceftriaxone Sodium 1 gm/ (Sodium Chloride) 100 mls @ 100 mls/hr IVPB DAILY [facility] Last Admin: 09/29/16 08:26 Dose: 100 mls/hr Azithromycin 500 mg/ Sodium (Chloride) 250 mls @ 250 mls/hr IVPB DAILY@1700 [facility] Last Admin: 09/29/16 16:49 Dose: 250 mls/hr Methylprednisolone 30 mg/ (Sodium Chloride) 50 mls @ 100 mls/hr IV DAILY [facility] Last Admin: 09/30/16 08:41 Dose: 100 mls/hr Methotrexate (Methotrexate) 15 mg PO [facility] PRN Reason: Protocol Last Admin: 09/28/16 08:22 Dose: 15 mg Metoprolol Tartrate (Lopressor) 50 mg PO DAILY [facility] Last Admin: 09/30/16 08:38 Dose: 50 mg Oxycodone/Acetaminophen (Percocet 5/325 Mg Tab) 2 tab PO Q6H PRN PRN Reason: Pain, severe (8-10) Promethazine HCl/Codeine (Phenergan/Codeine Oral Syrup) 10 ml PO Q6 PRN PRN Reason: Cough Tamsulosin HCl (Flomax) 0.4 mg PO [facility] Last Admin: 09/29/16 22:03 Dose: 0.4 mg Ticagrelor (Brilinta) 90 mg PO BID [facility] Last Admin: 09/30/16 08:39 Dose: 90 mg Tiotropium [place] (Spiriva) 18 mcg IH DAILY [facility] Last Admin: 09/30/16 08:39 Dose: 18 mcg Zolpidem Tartrate (Ambien) 5 mg PO [facility] Last Admin: 09/29/16 22:34 Dose: 5 mg Physical Exam - Additional Findings Additional findings: Physical exam; alert, well oriented neck Supple, no adenopathy Chest; ir entry poor bilaterally, with scattered rales and rhonchi Heart ; RSR, no murmur Abd; Soft , obese,no mass, no h/s megaly Results - Vital Signs Recent Vital Signs: Last Vital Signs Temp 97.7 F 09/30/16 08:08 Pulse 80 09/30/16 08:38 Resp 20 09/30/16 08:08 BP 106/63 09/30/16 08:38 Pulse Ox 98 09/30/16 08:08 - Labs Result Diagrams: 09/29/16 06:30 09/29/16 06:30 Labs: Laboratory Results - last 24 hr 09/29/16 12:45 ESR 35 H Assessment & Plan - Assessment and Plan (Free Text) Assessment: Impression; Reactive leukocytosis to the infection and inflammation,plus the steroids. Plan: Plan; No treatment required at this time. If the count does not go down 2 weeks after resolution of the symptoms, will do a bone marrow. - Date & Time Date: 09/30/16 Time: 09:55
--- NOTE | 2016-09-30 11:45 | CP.PCM.PN ---
Subjective - Date & Time of Evaluation Date of Evaluation: 09/30/16 Time of Evaluation: 11:40 - Subjective Subjective: F/U COPD Exacerbation. Objective - Vital Signs/Intake and Output Vital Signs (last 24 hours): Temp Pulse Resp BP Pulse Ox 97.7 F 80 20 106/63 98 09/30/16 08:08 09/30/16 08:38 09/30/16 08:08 09/30/16 08:38 09/30/16 08:08 - Medications Medications: Current Medications Albuterol/Ipratropium (Duoneb 3 Mg/0.5 Mg (3 Ml) Ud) 3 ml INH RQ4 [facility] Last Admin: 09/30/16 11:17 Dose: 3 ml Alprazolam (Xanax) 0.5 mg PO BID PRN PRN Reason: Anxiety Last Admin: 09/29/16 08:46 Dose: 0.5 mg Aspirin (Ecotrin) 81 mg PO DAILY [facility] Last Admin: 09/30/16 08:39 Dose: 81 mg Atorvastatin Calcium (Lipitor) 40 mg PO HS [facility] Last Admin: 09/29/16 22:03 Dose: 40 mg Cholecalciferol (Vitamin D) 1,000 iu PO DAILY [facility] Last Admin: 09/30/16 08:38 Dose: 1,000 iu Folic Acid (Folic Acid) 1 mg PO DAILY [facility] Last Admin: 09/30/16 08:38 Dose: 1 mg Hydroxychloroquine Sulfate (Plaquenil) 400 mg PO DAILY [facility] Last Admin: 09/30/16 08:40 Dose: 400 mg Ceftriaxone Sodium 1 gm/ (Sodium Chloride) 100 mls @ 100 mls/hr IVPB DAILY [facility] Last Admin: 09/30/16 09:49 Dose: 100 mls/hr Azithromycin 500 mg/ Sodium (Chloride) 250 mls @ 250 mls/hr IVPB DAILY@1700 [facility] Last Admin: 09/29/16 16:49 Dose: 250 mls/hr Methylprednisolone 30 mg/ (Sodium Chloride) 50 mls @ 100 mls/hr IV DAILY [facility] Last Admin: 09/30/16 08:41 Dose: 100 mls/hr Methotrexate (Methotrexate) 15 mg PO SUN [facility] PRN Reason: Protocol Last Admin: 09/28/16 08:22 Dose: 15 mg Metoprolol Tartrate (Lopressor) 50 mg PO DAILY [facility] Last Admin: 09/30/16 08:38 Dose: 50 mg Oxycodone/Acetaminophen (Percocet 5/325 Mg Tab) 2 tab PO Q6H PRN PRN Reason: Pain, severe (8-10) Promethazine HCl/Codeine (Phenergan/Codeine Oral Syrup) 10 ml PO Q6 PRN PRN Reason: Cough Tamsulosin HCl (Flomax) 0.4 mg PO HS [facility] Last Admin: 09/29/16 22:03 Dose: 0.4 mg Ticagrelor (Brilinta) 90 mg PO BID [facility] Last Admin: 09/30/16 08:39 Dose: 90 mg Tiotropium [place] (Spiriva) 18 mcg IH DAILY [facility] Last Admin: 09/30/16 08:39 Dose: 18 mcg Zolpidem Tartrate (Ambien) 5 mg PO [facility] Last Admin: 09/29/16 22:34 Dose: 5 mg - Labs Labs: 09/29/16 06:30 09/29/16 06:30 - Constitutional Appears: No Acute Distress - Head Exam Additional comments: Cushinoid face - Eye Exam Eye Exam: PERRL - ENT Exam ENT Exam: Normal Exam - Neck Exam Neck Exam: Normal Inspection - Respiratory Exam Respiratory Exam: Decreased Breath Sounds (at bases) - Cardiovascular Exam Cardiovascular Exam: REGULAR RHYTHM - GI/Abdominal Exam GI & Abdominal Exam: Soft, Normal Bowel Sounds - Extremities Exam Extremities Exam: Tenderness (mild R-L hand, R-L knee) - Back Exam Back Exam: NORMAL INSPECTION - Neurological Exam Neurological Exam: Alert, CN II-XII Intact, Oriented x3. absent: Motor Sensory Deficit - Psychiatric Exam Psychiatric exam: Normal Affect, Normal Mood - Skin Skin Exam: Warm Assessment and Plan (1) COPD exacerbation Status: Acute (2) Leukocytosis Status: Acute (3) ILD (interstitial lung disease) Status: Acute (4) CAD (coronary artery disease) Status: Chronic (5) HTN (hypertension) Status: Chronic (6) RA (rheumatoid arthritis) Status: Chronic (7) Anxiety Status: Acute (8) Esophageal reflux Status: Acute
== END 2016-09-30 13:00 | disposition home or self-care (01) | DRG 191 ==
LOC: H.TCU 17:41
PROVIDERS: ADMIT Internal Medicine Pulmonary Disease; ATTEND Internal Medicine Pulmonary Disease
PROC: 3E0F73Z Introduction of Anti-inflammatory into Respiratory Tract, Via Natural or Artificial Opening (ICD-10-PCS; principal; 2016-09-25)
PROC: F07Z9FZ Gait Training/Functional Ambulation Treatment using Assistive, Adaptive, Supportive or Protective Equipment (ICD-10-PCS; 2016-09-25)
PROC: F08Z4FZ Home Management Treatment using Assistive, Adaptive, Supportive or Protective Equipment (ICD-10-PCS; 2016-09-26)
DX: J44.1 Chronic obstructive pulmonary disease with (acute) exacerbation (principal); J84.9 Interstitial pulmonary disease, unspecified; M06.9 Rheumatoid arthritis, unspecified; I10 Essential (primary) hypertension; G47.33 Obstructive sleep apnea (adult) (pediatric); I25.10 Atherosclerotic heart disease of native coronary artery without angina pectoris; K21.9 Gastro-esophageal reflux disease without esophagitis; D72.828 Other elevated white blood cell count; E78.00 Pure hypercholesterolemia, unspecified; J45.909 Unspecified asthma, uncomplicated; F41.9 Anxiety disorder, unspecified; N40.0 Benign prostatic hyperplasia without lower urinary tract symptoms; Z87.891 Personal history of nicotine dependence; Z95.5 Presence of coronary angioplasty implant and graft; Z87.01 Personal history of pneumonia (recurrent)

== ENCOUNTER 2016-10-08 21:28 | Observation (INO) | payer MEDICARE, MEDICAID ==
[2016-10-08 21:28] VITALS: BMI 31.6
--- NOTE | 2016-10-08 22:09 | ED PDOC ---
HPI: Chest Pain Time Seen by Provider: 10/08/16 21:51 Chief Complaint (Nursing): Chest Pain Chief Complaint (Provider): Chest pain History Per: Patient History/Exam Limitations: no limitations Onset/Duration Of Symptoms: Days (2) Additional Complaint(s): Patient is a 70 year old male with a past medical history of cardiac disease and chronic obstructive pulmonary disease presenting to the emergency department for non-radiating and pleuritic chest pain that started yesterday at rest with associated shortness of breath. Denies fever, chills, cough, or leg swelling. Of note, patient took aspirin today. PCP: Dr. Kareem Son Past Medical History Reviewed: Historical Data, Nursing Documentation, Vital Signs Vital Signs: Last Vital Signs Temp 97.8 F 10/09/16 12:00 Pulse 58 L 10/09/16 12:00 Resp 20 10/09/16 12:00 BP 124/75 10/09/16 12:00 Pulse Ox 99 10/09/16 12:00 - Medical History PMH: Anemia, Anxiety, Arthritis (Osteoarthritis (severe)), Asthma, Benign Prostatic Hyperplasia, CAD, COPD, Emphysema, HTN, Hypercholesterolemia, Pneumonia, Rheumatoid Arthritis, Sleep Apnea Denies: HIV, Chronic Kidney Disease - Surgical History Surgical History: Coronary Stent (x2) - Family History Family History: States: [place], Hypertension - Social History Current smoker - smoking cessation education provided: No Ex-Smoker (has not smoked in the last 12 months): Yes Alcohol: None Drugs: Denies - Home Medications Home Medications: Ambulatory Orders Medication Instructions Recorded Folic Acid 1 mg PO DAILY 01/09/16 Tamsulosin [Flomax] 0.4 mg PO HS 01/09/16 Aspirin [Ecotrin] 81 mg PO DAILY 02/19/16 Atorvastatin [Lipitor] 40 mg PO HS 04/21/16 Hydroxychloroquine Sulfate 400 mg PO DAILY #30 tablet 06/05/16 [Plaquenil] Methotrexate 15 mg PO SUN 07/16/16 Oxycodone HCl/Acetaminophen 1 tab PO Q6H PRN 07/16/16 [Percocet 10-325 mg Tablet] Tiotropium [Spiriva] 18 mcg IH DAILY 07/16/16 Zolpidem [Ambien] 10 mg PO HS 07/16/16 Omeprazole 40 mg PO DAILY 08/04/16 Ticagrelor [Brilinta] 90 mg PO BID 08/04/16 Metoprolol Tartrate [Lopressor] 50 mg PO DAILY 09/21/16 Albuterol/Ipratropium [Duoneb 3 3 ml INH RQ4 09/25/16 mg/0.5 mg (3 ml) UD] - Allergies Allergies/Adverse Reactions: Allergies Allergy/AdvReac Type Severity Reaction Status Date / Time No Known Allergies Allergy Verified 10/09/16 00:46 Review of Systems ROS Statement: Except As Marked, All Systems Reviewed And Found Negative Constitutional: Negative for: Fever, Chills Cardiovascular: Positive for: Chest Pain (non-radiating) Respiratory: Positive for: Shortness of Breath, Pleuritic Pain. Negative for: Cough Musculoskeletal: Negative for: Other (leg swelling) Physical Exam - Reviewed Nursing Documentation Reviewed: Yes Vital Signs Reviewed: Yes - Physical Exam Appears: Positive for: Well, Non-toxic, No Acute Distress Head Exam: Positive for: ATRAUMATIC, NORMAL INSPECTION, NORMOCEPHALIC Skin: Positive for: Normal Color, Warm, DRY Eye Exam: Positive for: EOMI, Normal appearance, PERRL ENT: Positive for: Normal ENT Inspection Neck: Positive for: Normal, Painless ROM, Supple Cardiovascular/Chest: Positive for: Regular Rate, Rhythm. Negative for: Bradycardia Respiratory: Positive for: Crackles (scattered, mild). Negative for: Normal Breath Sounds, Wheezing Gastrointestinal/Abdominal: Positive for: Normal Exam, Soft. Negative for: Tenderness Extremity: Positive for: Normal ROM. Negative for: Pedal Edema Neurologic/Psych: Positive for: Alert, Oriented - Laboratory Results Result Diagrams: 10/09/16 05:00 10/09/16 05:00 - ECG O2 Sat by Pulse Oximetry: 99 (RA) Pulse Ox Interpretation: Normal Medical Decision Making Medical Decision Making: Time: 21:55 Initial impression: rule out acute coronary syndrome Initial plan: EKG Labs Chest X-Ray Nitrostat 0.4 mg SL Continue Pharmacy Informatics Specialist Urinalysis Stat Reevaluation 0000 Patient will be admitted under Dr. Son. States that patient always has elevated WBC as he takes glucocorticoids. 0243 CT FINDINGS No pulmonary embolism identified although motion and bolus timing slightly limits evaluation of the distal branches. The ascending aorta measures 3.3 cm in diameter. The aorta measures 4 cm at the junction of the arch and descending thoracic aorta. No aortic dissection. Trace right pleural fluid unchanged. Groundglass opacities and fibrosis in the apices bilaterally and to a lesser degree in the lower lungs consistent with chronic disease. Lobulated splenic tissue in the left upper quadrant similar to prior. Low attenuation left renal lesion incompletely imaged with visualized portion unchanged. Osteophyte formation in the spine. IMPRESSION: No acute findings. Scribe Attestation: Documented by Chel Santa and Marcela Vidal, acting as a scribe for Ramses Mehta MD. Provider Scribe Attestation: All medical record entries made by the Scribe were at my direction and personally dictated by me. I have reviewed the chart and agree that the record accurately reflects my personal performance of the history, physical exam, medical decision making, and the department course for this patient. I have also personally directed, reviewed, and agree with the discharge instructions and disposition. Disposition - Clinical Impression Clinical Impression: Acute chest pain - Disposition Disposition Time: 00:00 Condition: FAIR
[2016-10-08 22:39] LABS: BASO # 0.2 K/uL (0.0-0.2); BASO % 0.9 % (0.0-2.0); EOS # 0.3 K/uL (0.0-0.7); EOS % 1.5 % (0.0-4.0); HEMATOCRIT 34.6 % (35.0-51.0); LYMPH # 2.6 K/uL (1.0-4.3); LYMPH % 14.9 % (20.0-40.0); MEAN CELL VOLUME 92.6 fl (80.0-94.0); MEAN CORPUSCULAR HEMOGLOBIN 30.2 pg (27.0-31.0); MEAN CORPUSCULAR HGB CONC 32.6 g/dL (33.0-37.0); MEAN PLATELET VOLUME 9.6 fl (7.2-11.7); MONO # 1.9 K/uL (0.0-0.8); NEUT # 12.6 K/uL (1.8-7.0); NEUT % 71.7 % (50.0-75.0); RED CELL DISTRIBUTION WIDTH 18.1 % (11.5-14.5); WHITE BLOOD COUNT 17.6 K/uL (4.8-10.8)
[2016-10-08 22:45] LABS: BLOOD UREA NITROGEN 15 mg/dl (9-20); CALCIUM 8.9 mg/dL (8.4-10.2); CARBON DIOXIDE 23 mmol/L (22-30); CHLORIDE 105 mmol/L (98-107); GFR AFRICAN-AMERICAN > 60; GLUCOSE,RANDOM 91 mg/dL (75-110); POTASSIUM 4.7 MMOL/L (3.6-5.0); SODIUM 137 mmol/l (132-148)
[2016-10-09 00:12] LABS: PARTIAL THROMBOPLASTIN TIME 28.7 Seconds (25.6-37.1)
[2016-10-09] MEDS ORDERED: Sodium Chloride 0.9% 50 ML IV ONE (01:12)
[2016-10-09] MEDS ORDERED: Iodixanol 320 MG/ML 100 ML BOTTLE IV ONE (01:12)
--- NOTE | 2016-10-09 02:44 | CT ---
EXAM: CT Angiography Chest With Intravenous Contrast EXAM DATE/TIME: 10/09/2016 12:53 AM CLINICAL HISTORY: 70 years old, male; Pain; Chest pain TECHNIQUE: Axial computed tomographic angiography images of the chest with intravenous contrast using pulmonary embolism protocol. All CT scans at this facility use one or more dose reduction techniques, viz.: automated exposure control; ma/kV adjustment per patient size (including targeted exams where dose is matched to indication; i.e. head); or iterative reconstruction technique. MIP reconstructed images were created and reviewed. Coronal and sagittal reformatted images were created and reviewed. CONTRAST: 80 mL of [id number] administered intravenously. COMPARISON: CT - CHEST W/O CONTRAST 09/22/2016 12:06:41 PM FINDINGS: No pulmonary embolism identified although motion and bolus timing slightly limits evaluation of the distal branches. The ascending aorta measures 3.3 cm in diameter. The aorta measures 4 cm at the junction of the arch and descending thoracic aorta. No aortic dissection. Trace right pleural fluid unchanged. Groundglass opacities and fibrosis in the apices bilaterally and to a lesser degree in the lower lungs consistent with chronic disease. Lobulated splenic tissue in the left upper quadrant similar to prior. Low attenuation left renal lesion incompletely imaged with visualized portion unchanged. Osteophyte formation in the spine. IMPRESSION: No acute findings.
[2016-10-09] MEDS ORDERED: Promethazine/Cod 6.25mg-10mg/5ml Syr UD PO PRN (03:50)
[2016-10-09] MEDS ORDERED: Oxycodone/Acetaminophen 5/325 mg Tab PO PRN (03:50)
[2016-10-09 06:59] LABS: HEMATOCRIT 33.2 % (35.0-51.0); MEAN CELL VOLUME 92.9 fl (80.0-94.0); MEAN CORPUSCULAR HGB CONC 32.2 g/dL (33.0-37.0); RED CELL DISTRIBUTION WIDTH 18.1 % (11.5-14.5)
[2016-10-09 07:14] LABS: ALB/GLOB RATIO 1.2 (1.0-2.1); ALKALINE PHOSPHATASE 64 U/L (38-126); ALT/SGPT 39 U/L (21-72); AST/SGOT 18 U/L (17-59); BILIRUBIN,TOTAL 0.6 mg/dl (0.2-1.3); BLOOD UREA NITROGEN 12 mg/dl (9-20); CALCIUM 9.1 mg/dL (8.4-10.2); CARBON DIOXIDE 25 mmol/L (22-30); CHLORIDE 106 mmol/L (98-107); GFR AFRICAN-AMERICAN > 60; GLUCOSE,RANDOM 85 mg/dL (75-110); POTASSIUM 3.7 MMOL/L (3.6-5.0); SODIUM 139 mmol/l (132-148); TOTAL PROTEIN 6.2 G/DL (6.3-8.2)
[2016-10-09] MEDS: Albuterol-Ipratrop 3 mg / 0.5 (3 ml) UD INH SCH ×2 (07:46→13:09)
--- NOTE | 2016-10-09 08:16 | RAD ---
HISTORY: COMPARISON: 09/24/2016 TECHNIQUE: Chest PA and lateral FINDINGS: LINES AND TUBES: None. LUNG AND PLEURA: There is interstitial thickening in both lungs. There is no focal consolidation HEART AND MEDIASTINUM: The heart is not enlarged. The hilar and mediastinal contours are within normal limits. SKELETAL STRUCTURES: The bony structures are within normal limits for the patient's age. VISUALIZED UPPER ABDOMEN: Normal. OTHER FINDINGS: None. IMPRESSION: Interstitial fibrosis. No acute findings.
[2016-10-09 08:23] VITALS: RESP 20
[2016-10-09] MEDS ORDERED: Enoxaparin 40 mg Syringe SC SCH (09:00)
[2016-10-09] MEDS ORDERED: Pantoprazole 40 mg EC Tab PO SCH (09:00)
[2016-10-09] MEDS ORDERED: Tiotropium 18 mcg Cap For Inhalation INH SCH (09:00)
[2016-10-09 12:32] VITALS: BP 124/75; PULSE 58; TEMP 97.8; O2SAT 99
--- NOTE | 2016-10-09 15:22 | CP.PCM.HP ---
History of Present Illness - History of Present Illness History of Present Illness: CC: Chest pain. 70 y/o M, brought by EMS to [facility] for evaluation of Chest pain, onset day [employer] , Pt took asa with no relief. Pt was c/o of Midsternal L sided chest pain, intermittent, pressure type, moderate intensity 4:10, non radiated, associated to mild SOB,no cough. Worsening symptoms: D-Dimer [id number], SOB at rest. Pt denied: Fever, chills, cough, diaphoresis, dizziness, numbness, palpitations , n/v/d, abdominal pain, urinary symptoms, syncope, sick contact, recent travel. PMHx: COPD, Asthma, Emphysema, ANDRZEJ, ILD, HTN, coronary stent x1, R/A, O/A, Anxiety, Hx Shingles. CT Chest shows: No acute finding. CXR: Interstitial fibrosis. Present on Admission - Present on Admission Any Indicators Present on Admission: No Review of Systems - Constitutional Constitutional: Sleep Apnea (Hx.) - EENT Eyes: Requires Corrective Lenses Ears: Other (negative) Nose/Mouth/Throat: Other (negative) - Cardiovascular Cardiovascular: Chest Pain (midsternal) - Respiratory Respiratory: Dyspnea - Gastrointestinal Gastrointestinal: Other (negative) - Genitourinary Genitourinary: Other (negative) - Musculoskeletal Musculoskeletal: Arthralgias, Other (joint pain) - Integumentary Integumentary: Other (negative) - Neurological Neurological: Other (negative) - Psychiatric Psychiatric: Anxiety - Endocrine Endocrine: Other (negative) - Hematologic/Lymphatic Hematologic: Other (anemia) Past Patient History - Past Medical History & Family History Past Medical History?: Yes Pertinent Family History: HI, HTN - Past Social History Smoking Status: Former Smoker Alcohol: None Drugs: Denies Home Situation {Lives}: Alone - CARDIAC Hx Cardiac Disorders: Yes Hx Hypercholesterolemia: Yes Hx Hypertension: Yes - PULMONARY Hx Respiratory Disorders: Yes Hx Asthma: Yes Hx Chronic Obstructive Pulmonary Disease (COPD): Yes Hx Emphysema: Yes Hx Pneumonia: Yes Hx Sleep Apnea: Yes - NEUROLOGICAL Hx Neurological Disorder: No - HEENT Hx HEENT Problems: No Hx Cataracts: No (denies) - RENAL Hx Chronic Kidney Disease: No - ENDOCRINE/METABOLIC Hx Endocrine Disorders: No Hx Diabetes Mellitus Type 2: No - HEMATOLOGICAL/ONCOLOGICAL Hx Blood Disorders: Yes Hx Anemia: Yes Hx Human Immunodeficiency Virus (HIV): No - INTEGUMENTARY Hx Dermatological Problems: No - MUSCULOSKELETAL/RHEUMATOLOGICAL Hx Musculoskeletal Disorders: Yes Hx Arthritis: Yes (Osteoarthritis (severe)) Hx Falls: Yes (About 1 year ago) Hx Osteoarthritis: Yes (Severe) Hx Rheumatoid Arthritis: Yes - GASTROINTESTINAL Hx Gastrointestinal Disorders: Yes Hx Gastroesophageal Reflux: Yes - GENITOURINARY/GYNECOLOGICAL Hx Genitourinary Disorders: Yes Hx Prostate Problems: Yes (BPH) - PSYCHIATRIC Hx Psychophysiologic Disorder: Yes Hx Anxiety: Yes Hx Substance Use: No - SURGICAL HISTORY Hx Surgeries: Yes Hx Coronary Stent: Yes (x2) - ANESTHESIA Hx Anesthesia: Yes Hx Anesthesia Reactions: No Hx Malignant Hyperthermia: No Meds Allergies/Adverse Reactions: Allergies Allergy/AdvReac Type Severity Reaction Status Date / Time No Known Allergies Allergy Verified 10/09/16 00:46 Physical Exam - Constitutional Appears: No Acute Distress, Chronically Ill - Head Exam Head Exam: NORMAL INSPECTION - Eye Exam Eye Exam: PERRL - ENT Exam ENT Exam: Normal Exam - Neck Exam Neck exam: Positive for: Normal Inspection - Respiratory Exam Respiratory Exam: Decreased Breath Sounds (b/l) - Cardiovascular Exam Cardiovascular Exam: REGULAR RHYTHM - GI/Abdominal Exam GI & Abdominal Exam: Normal Bowel Sounds, Soft - Extremities Exam Extremities exam: Positive for: normal inspection - Back Exam Additional comments: Mild redness R buttock. - Neurological Exam Neurological exam: Alert, Oriented x3 Additional comments: No motor sensory deficit. - Psychiatric Exam Psychiatric exam: Anxious - Skin Skin Exam: Normal Color, Warm Results - Vital Signs Recent Vital Signs: Last Vital Signs Temp 97.8 F 10/09/16 12:00 Pulse 58 L 10/09/16 12:00 Resp 20 10/09/16 12:00 BP 124/75 10/09/16 12:00 Pulse Ox 99 10/09/16 12:00 - Labs Result Diagrams: 10/09/16 05:00 10/09/16 05:00 Labs: Laboratory Results - last 24 hr 10/09/16 10/09/16 10/09/16 05:00 05:00 14:10 WBC 19.0 H RBC 3.58 L Hgb 10.7 L Hct 33.2 L MCV 92.9 MCH 30.0 MCHC 32.2 L RDW 18.1 H Plt Count 254 Sodium 139 Potassium 3.7 Chloride 106 Carbon Dioxide 25 Anion Gap 12 BUN 12 Creatinine 0.9 Est GFR ( Amer) > 60 Est GFR (Non-Af Amer) > 60 Random Glucose 85 Calcium 9.1 Total Bilirubin 0.6 AST 18 ALT 39 Alkaline Phosphatase 64 Troponin I < 0.0120 < 0.0120 Total Protein 6.2 L Albumin 3.4 L Globulin 2.8 Albumin/Globulin Ratio 1.2 Assessment & Plan (1) Chest pain, pleuritic Status: Acute Priority: High (2) COPD (chronic obstructive pulmonary disease) Status: Chronic Priority: High (3) HTN (hypertension) Status: Chronic Priority: Low (4) RA (rheumatoid arthritis) Status: Chronic Priority: High (5) Anxiety Status: Acute Priority: Medium - Assessment and Plan (Free Text) Plan: Pt seen by internal audit consultant, f/u 3rd troponing, if negative, Pt is in improved and stable condition to be discharged, f/u internal audit consultant as out Pt next Thursday for SPT. - Date & Time Date: 10/09/16 Time: 11:00
--- NOTE | 2016-10-10 07:45 | CP.PCM.CON ---
History of Present Illness - History of Present Illness History of Present Illness: I was asked to see patient by Dr. Son Patient is a 70 year old male with PMH HTN, CAD s/p stent LAD who presents with chest pain. The patient describes intermittent chest discomfort that occurs at rest. The patient had no associated dyspnea. The patient was referred to hosptial for further management. Review of Systems - Constitutional Constitutional: absent: As Per HPI, Anorexia, Chills, Daytime Sleepiness, Excessive Sweating, Fatigue, Fever, Frequent Falls, Headache, Increased Appetite , Lethargy, Malaise, Night Sweats, Snoring, Sleep Apnea, Weight Gain, Weight Loss, Weakness, Other - EENT Eyes: absent: As Per HPI, Blind Spots, Blurred Vision, Change in Vision, Decreased Night Vision, Diplopia, Discharge, Dry Eye, Exophthalmos, Floaters, Irritation, Itchy Eyes, Loss of Peripheral Vision, Pain, Photophobia, Requires Corrective Lenses, Sees Flashes, Spots in Vision, Tunnel Vision, Other Visual Disturbances, Loss of Vision, Other Ears: absent: As Per HPI, Decreased Hearing, Ear Discharge, Ear Pain, Tinnitus, Abnormal Hearing, Disequilibrium, Dizziness, Other Nose/Mouth/Throat: absent: As Per HPI, Epistaxis, Nasal Congestion, Nasal Discharge, Nasal Obstruction, Nasal Trauma, Nose Pain, Post Nasal Drip, Sinus Pain, Sinus Pressure, Bleeding Gums, Change in Voice, Dental Pain, Dry Mouth, Dysphagia, Halitosis, Hoarsness, Lip Swelling, Mouth Lesions, Mouth Pain, Odynophagia, Sore Throat, Throat Swelling, Tongue Swelling, Facial Pain, Neck Pain, Neck Mass, Other - Cardiovascular Cardiovascular: absent: As Per HPI, Acrocyanosis, Chest Pain, Chest Pain at Rest , Chest Pain with Activity, Claudication, Diaphoresis, Dyspnea, Dyspnea on Exertion, Edema, Irregular Heart Rhythm, Pain Radiating to Arm/Neck/Jaw, Leg Edema, Leg Ulcers, Lightheadedness, Orthopnea, Palpitations, Paroxysmal Nocturnal Dyspnea, Pedal Edema, Radiating Pain, Rapid Heart Rate, Slow Heart Rate, Syncope, Other - Respiratory Respiratory: absent: As Per HPI, Cough, Dyspnea, Hemoptysis, Dyspnea on Exertion , Wheezing, Snoring, Stridor, Pain on Inspiration, Chest Congestion, Excessive Mucous Production, Change in Mucous Color, Pain with Coughing, Other - Gastrointestinal Gastrointestinal: absent: As Per HPI, Abdominal Pain, Belching, Bloating, Change in Bowel Habits, Change in Stool Character, Coffee Ground Emesis, Constipation, Cramping, Diarrhea, Dyspepsia, Dysphagia, Early Satiety, Excessive Flatus, Fecal Incontinence, Heartburn, Hematemesis, Hematochezia, Loose Stools, Melena, Nausea, Odynophagia, Temesmus, Vomiting, Other - Genitourinary Genitourinary: absent: As Per HPI, Change in Urinary Stream, Difficulty Urinating, Dysuria, Flank Pain, Hematuria, Pyuria, Nocturia, Urinary Incontinence, Urinary Frequency, Urinary Hesitance, Urinary Urgency, Voiding Freq/Small Amts, Freq UTI, Hx Renal/Bladder Calculi, Hx /Renal Surgery, Bladder Distension, Other - Musculoskeletal Musculoskeletal: absent: As Per HPI, Abnormal Gait, Arthralgias, Atrophy, Back Pain, Deformity, Joint Swelling, Limited Range of Motion, Loss of Height, Muscle Cramps, Muscle Weakness, Myalgias, Neck Pain, Numbness, Radiating Pain into Limb, Stiffness, Tingling, Other - Integumentary Integumentary: absent: As Per HPI, Acne, Alopecia, Bleeding Lesions, Change in Hair, Change in Nails, Change in Pigmentation, Changing Lesions, Dry Skin, Erythema, Furuncle, Hirsutism, Lesions, New Lesions, Non-Healing Lesions, Photosensitivity, Pruritus, Rash, Skin Pain, Skin Ulcer, Sores, Striae, Swelling , Unusual Bruising, Wounds, Jaundice, Other - Neurological Neurological: absent: As Per HPI, Abnormal Gait, Abnormal Hearing, Abnormal Movements, Abnormal Speech, Behavioral Changes, Burning Sensations, Confusion, Convulsions, Disequilibrium, Dizziness, Numbness, Focal Weakness, Frequent Falls , Headaches, Lack of Coordination, Loss of Vision, Memory Loss, Paresthesias, Radicular Pain, Restless Legs, Sensory Deficit, Syncope, Tingling, Tremor, Vertigo, Weakness, Other Visual Disturbances, Other - Psychiatric Psychiatric: absent: As Per HPI, Abnormal Sleep Pattern, Anhedonia, Anxiety, Auditory Hallucinations, Behavioral Changes, Change in Appetite, Change in Libido, Confusion, Depression, Difficulty Concentrating, Hallucinations, Homicidal Ideation, Hopelessness, Irritability, Memory Loss, Mood Swings, Panic Attacks, Paranoia, Suicidal Ideation, Visual Hallucinations, Tactile Hallucinations, Other - Endocrine Endocrine: absent: As Per HPI, Change in Body Appearance, Change in Libido, Cold Intolorance, Deepening of Voice, Excessive Sweating, Fatigue, Flushing, Heat Intolorance, Increase in Ring/Shoe/Hat Size, Palpitations, Polydipsia, Polyphagia, Polyuria, Other - Hematologic/Lymphatic Hematologic: absent: As Per HPI, Easy Bleeding, Easy Bruising, Lymphadenopathy, Other Past Patient History - Past Medical History & Family History Past Medical History?: Yes - Past Social History Alcohol: None Drugs: Denies - CARDIAC Hx Hypercholesterolemia: Yes Hx Hypertension: Yes - PULMONARY Hx Asthma: Yes Hx Chronic Obstructive Pulmonary Disease (COPD): Yes Hx Emphysema: Yes Hx Pneumonia: Yes Hx Sleep Apnea: Yes - NEUROLOGICAL Hx Neurological Disorder: No - HEENT Hx HEENT Problems: No Hx Cataracts: No (denies) - RENAL Hx Chronic Kidney Disease: No - ENDOCRINE/METABOLIC Hx Endocrine Disorders: No Hx Diabetes Mellitus Type 2: No - HEMATOLOGICAL/ONCOLOGICAL Hx Anemia: Yes Hx Human Immunodeficiency Virus (HIV): No - INTEGUMENTARY Hx Dermatological Problems: No - MUSCULOSKELETAL/RHEUMATOLOGICAL Hx Arthritis: Yes (Osteoarthritis (severe)) Hx Rheumatoid Arthritis: Yes - GASTROINTESTINAL Hx Gastrointestinal Disorders: Yes Hx Gastroesophageal Reflux: Yes - GENITOURINARY/GYNECOLOGICAL Hx Genitourinary Disorders: Yes Hx Prostate Problems: Yes (BPH) - PSYCHIATRIC Hx Anxiety: Yes - SURGICAL HISTORY Hx Coronary Stent: Yes (x2) - ANESTHESIA Hx Anesthesia: Yes Hx Anesthesia Reactions: No Hx Malignant Hyperthermia: No Meds Allergies/Adverse Reactions: Allergies Allergy/AdvReac Type Severity Reaction Status Date / Time No Known Allergies Allergy Verified 10/09/16 00:46 Physical Exam - Constitutional Appears: Non-toxic - Head Exam Head Exam: NORMAL INSPECTION - Eye Exam Eye Exam: Normal appearance - ENT Exam ENT Exam: Mucous Membranes Moist - Neck Exam Neck exam: Positive for: Full Rom - Respiratory Exam Respiratory Exam: NORMAL BREATHING PATTERN - Cardiovascular Exam Cardiovascular Exam: REGULAR RHYTHM - GI/Abdominal Exam GI & Abdominal Exam: Normal Bowel Sounds - Rectal Exam Rectal Exam: Deferred - Extremities Exam Extremities exam: Positive for: pedal edema - Back Exam Back exam: NORMAL INSPECTION - Neurological Exam Neurological exam: Alert, Oriented x3 - Psychiatric Exam Psychiatric exam: Normal Affect - Skin Skin Exam: Normal Color Results - Vital Signs Recent Vital Signs: Last Vital Signs Temp 97.8 F 10/09/16 12:00 Pulse 58 L 10/09/16 12:00 Resp 20 10/09/16 12:00 BP 124/75 10/09/16 12:00 Pulse Ox 99 10/09/16 21:13 - Labs Result Diagrams: 10/09/16 05:00 10/09/16 05:00 Labs: Laboratory Results - last 24 hr 10/09/16 14:10 Troponin I < 0.0120 - EKG Data EKG Interpreted by: Myself EKG shows normal: Sinus rhythm Assessment & Plan (1) Chest pain Assessment and Plan: seems atypical for angina. If troponin negative x 3, will discharge. schedule outpatient stress test. Status: Acute (2) CAD (coronary artery disease) Assessment and Plan: continue ASA/Brilinta Status: Chronic Priority: Medium (3) HTN (hypertension) Assessment and Plan: blood pressure control Status: Chronic Priority: Low
--- NOTE | 2016-10-10 09:21 | CARD ---
APPROVED REPORT EKG Measurement Heart [id number] <Conclusion> Normal sinus rhythm Normal ECG
--- NOTE | 2016-10-10 09:35 | CARD ---
APPROVED REPORT EKG Measurement Heart [id number] <Conclusion> Normal sinus rhythm Normal ECG
== END 2016-10-09 15:50 | disposition home or self-care (01) ==
LOC: H.ER 21:28 → H.ERHOLD 10-09 00:07 → H.ICU/CCU 10-09 00:58
PROVIDERS: ADMIT Internal Medicine Pulmonary Disease; ATTEND Internal Medicine Pulmonary Disease
DX: R07.89 Other chest pain (principal); J44.9 Chronic obstructive pulmonary disease, unspecified; I10 Essential (primary) hypertension; F41.9 Anxiety disorder, unspecified; M06.9 Rheumatoid arthritis, unspecified; I25.10 Atherosclerotic heart disease of native coronary artery without angina pectoris; Z95.5 Presence of coronary angioplasty implant and graft; E78.00 Pure hypercholesterolemia, unspecified; G47.33 Obstructive sleep apnea (adult) (pediatric); J45.909 Unspecified asthma, uncomplicated; N40.0 Benign prostatic hyperplasia without lower urinary tract symptoms; M19.90 Unspecified osteoarthritis, unspecified site; J84.9 Interstitial pulmonary disease, unspecified
CPT/HCPCS: 71020; 71275; 80048; 80053; 84484; 85025; 85027; 85378; 85610; 85730; 87081; 93005; 94640; 99285; G0378; J1650; Q9967

== ENCOUNTER 2016-10-20 10:45 | Emergency (ER) | payer MEDICARE, MEDICAID ==
[2016-10-20 10:52] VITALS: TEMP 98.1; BMI 31.8
[2016-10-20 11:30] VITALS: PULSE 90; RESP 20
--- NOTE | 2016-10-20 11:30 | ED PDOC ---
Syncope/Near Syncope/Dizziness Time Seen by Provider: 10/20/16 10:53 Chief Complaint (Nursing): Weakness/Neurological Deficit Chief Complaint (Provider): Bodyaches History Per: Patient History/Exam Limitations: no limitations Onset/Duration Of Symptoms: Days (x3) Current Symptoms Are (Timing): Still Present Additional Complaint(s): Damien Lopes is a 70 year old male with a past medical history of Rheumatoid Arthritis, osteoarthritis, COPD, and CAD presenting to the ED for an evaluation of diffuse body aches occurring for 3 days prior to arrival. The patient states his joints all over his body are hurting him. He has taken over the counter medication and 1 pill of both recently prescribed Tramadol and Percocet for his pain. The patient reports the pain is worse when moving his extremities and reports having difficulty moving his fingers. The patient is concerned this is just an exacerbation of his RA, for which he normally takes matrixyl and plaquenil. He reports having an associated cough with a small amount of sputum which he states is normal for him due to his COPD, and an associated sore throat. He also states he is not on oxygen at home for his COPD. He denies fever. PMD: Kareem Son MD Past Medical History Reviewed: Historical Data, Nursing Documentation, Vital Signs Vital Signs: Last Vital Signs Temp 98.1 F 10/20/16 10:48 Pulse 96 H 10/20/16 10:48 Resp 16 10/20/16 10:48 BP 116/66 10/20/16 10:48 Pulse Ox 91 L 10/20/16 10:48 - Medical History PMH: Anemia, Anxiety, Arthritis (Osteoarthritis (severe)), Asthma, Benign Prostatic Hyperplasia, CAD, COPD, Emphysema, HTN, Hypercholesterolemia, Pneumonia, Rheumatoid Arthritis, Sleep Apnea Denies: HIV, Chronic Kidney Disease - Surgical History Surgical History: Coronary Stent (x2) - Family History Family History: States: ID, Hypertension - Social History Current smoker - smoking cessation education provided: No Ex-Smoker (has not smoked in the last 12 months): Yes Alcohol: None Drugs: Denies - Home Medications Home Medications: Ambulatory Orders Medication Instructions Recorded Folic Acid 1 mg PO DAILY 01/09/16 Tamsulosin [Flomax] 0.4 mg PO HS 01/09/16 Aspirin [Ecotrin] 81 mg PO DAILY 02/19/16 Atorvastatin [Lipitor] 40 mg PO HS 04/21/16 Hydroxychloroquine Sulfate 400 mg PO DAILY #30 tablet 06/05/16 [Plaquenil] Methotrexate 15 mg PO SUN 07/16/16 Oxycodone HCl/Acetaminophen 1 tab PO Q6H PRN 07/16/16 [Percocet 10-325 mg Tablet] Tiotropium [Spiriva] 18 mcg IH DAILY 07/16/16 Zolpidem [Ambien] 10 mg PO HS 07/16/16 Omeprazole 40 mg PO DAILY 08/04/16 Ticagrelor [Brilinta] 90 mg PO BID 08/04/16 Metoprolol Tartrate [Lopressor] 50 mg PO DAILY 09/21/16 Albuterol/Ipratropium [Duoneb 3 3 ml INH RQ4 09/25/16 mg/0.5 mg (3 ml) UD] Azithromycin [Z-Иван] 250 mg PO DAILY #6 tab 10/20/16 Prednisone [Robert] 5 mg PO HS #15 tablet. 10/20/16 traMADol [Ultram] 50 mg PO TID PRN #15 tab 10/20/16 - Allergies Allergies/Adverse Reactions: Allergies Allergy/AdvReac Type Severity Reaction Status Date / Time No Known Allergies Allergy Verified 10/09/16 00:46 Review of Systems ROS Statement: Except As Marked, All Systems Reviewed And Found Negative Constitutional: Negative for: Fever ENT: Positive for: Throat Pain (sore throat) Respiratory: Positive for: Cough (chronic with a small amount of sputum ) Musculoskeletal: Positive for: Other (diffuse body aches and joint pain across body) Physical Exam - Reviewed Nursing Documentation Reviewed: Yes Vital Signs Reviewed: Yes - Physical Exam Appears: Positive for: Non-toxic, No Acute Distress Head Exam: Positive for: ATRAUMATIC, NORMAL INSPECTION, NORMOCEPHALIC Skin: Positive for: Normal Color, Warm, Dry Eye Exam: Positive for: Normal appearance, EOMI ENT: Positive for: Normal ENT Inspection Neck: Positive for: Normal, Painless ROM Cardiovascular/Chest: Positive for: Regular Rate, Rhythm. Negative for: Murmur Respiratory: Negative for: Respiratory Distress Gastrointestinal/Abdominal: Positive for: Normal Exam, Soft. Negative for: Tenderness Back: Positive for: Normal Inspection Extremity: Positive for: Normal ROM (normal ROM in large joints; limited ROM in fingers due to pain), Swelling (mild swelling diffusely in all joints). Negative for: Other (no redness in joints ) Neurologic/Psych: Positive for: Alert, Oriented - Laboratory Results Result Diagrams: 10/20/16 11:29 10/20/16 11:29 - ECG O2 Sat by Pulse Oximetry: 91 (RA) Pulse Ox Interpretation: Normal (Due to COPD) - Progress Re-evaluation Time: 13:21 Condition: Re-examined, Improved Medical Decision Making Medical Decision Making: Time: 10:53 Impression: Body aches, arthralgia Differential diagnosis includes exacerbation of RA and other conditions also considered such as pneumonia or strep throat Plan: BMP * Creatine phosphokinase * CBC (With Differential) * Erythrocyte Sedimentation Rate * Chest Two Views (PA/LAT) [RAD] * Morphine 2 mg IVP * Toradol 15 mg IVP * Rapid Strep Group A Antigen * Reevaluation Chest X-Ray FINDINGS: LUNGS: Chronic interstitial fibrosis again noted. Subtle areas of more confluent opacification in the left lung base and right lower lung field could represent developing pneumonia PLEURA: No significant pleural effusion identified. No pneumothorax apparent. CARDIOVASCULAR: Heart is enlarged. OSSEOUS STRUCTURES: No significant abnormalities. VISUALIZED UPPER ABDOMEN: Normal. OTHER FINDINGS: None. IMPRESSION: Chronic interstitial fibrosis again noted. Subtle areas of more confluent opacification in the left lung base and right lower lung field could represent developing pneumonia Scribe Attestation: Documented by Evelyn Guajardo, acting as a scribe for Pau Hair MD. Provider Scribe Attestation: All medical record entries made by the Scribe were at my direction and personally dictated by me. I have reviewed the chart and agree that the record accurately reflects my personal performance of the history, physical exam, medical decision making, and the department course for this patient. I have also personally directed, reviewed, and agree with the discharge instructions and disposition. Disposition - Clinical Impression Clinical Impression: Arthralgia, Rheumatoid arthritis, COPD (chronic obstructive pulmonary disease) , ILD (interstitial lung disease), COPD exacerbation - Patient ED Disposition Is Patient to be Admitted: No Doctor Will See Patient In The: Office Counseled Patient/Family Regarding: Studies Performed, Diagnosis, Need For Followup - Disposition Referrals: Kareem Son MD [Staff Provider] - Disposition: Routine/Home Disposition Time: 13:21 Condition: GOOD Additional Instructions: Take your medications as instructed. Return for worsening. Follow up with your PCP in 2-3 days. Prescriptions: Azithromycin [Z-Иван] 250 mg PO DAILY #6 tab Prednisone [Robert] 5 mg PO HS #15 tablet. traMADol [Ultram] 50 mg PO TID PRN #15 tab PRN Reason: Pain, Moderate (4-7) Instructions: Rheumatoid Arthritis (ED) Print Language: AUSTRIAN
[2016-10-20 11:35] LABS: BASO # 0.2 K/uL (0.0-0.2); BASO % 1.1 % (0.0-2.0); EOS # 1.3 K/uL (0.0-0.7); EOS % 7.9 % (0.0-4.0); HEMATOCRIT 37.3 % (35.0-51.0); LYMPH # 2.9 K/uL (1.0-4.3); LYMPH % 18.2 % (20.0-40.0); MEAN CORPUSCULAR HEMOGLOBIN 29.5 pg (27.0-31.0); MEAN CORPUSCULAR HGB CONC 32.1 g/dL (33.0-37.0); MEAN PLATELET VOLUME 9.4 fl (7.2-11.7); MONO # 1.5 K/uL (0.0-0.8); MONO % 9.5 % (0.0-10.0); NEUT # 10.1 K/uL (1.8-7.0); NEUT % 63.3 % (50.0-75.0); RED CELL DISTRIBUTION WIDTH 17.7 % (11.5-14.5); WHITE BLOOD COUNT 15.9 K/uL (4.8-10.8)
[2016-10-20 11:44] LABS: BLOOD UREA NITROGEN 13 mg/dl (9-20); CALCIUM 9.6 mg/dL (8.4-10.2); CARBON DIOXIDE 24 mmol/L (22-30); CHLORIDE 106 mmol/L (98-107); GFR AFRICAN-AMERICAN > 60; GLUCOSE,RANDOM 98 mg/dL (75-110); POTASSIUM 4.4 MMOL/L (3.6-5.0); SODIUM 141 mmol/l (132-148)
--- NOTE | 2016-10-20 13:09 | RAD ---
HISTORY: cough COMPARISON: Comparison chest chest radiograph 10/08/[address] a chest 10/09/2016 TECHNIQUE: Chest PA and lateral FINDINGS: LUNGS: Chronic interstitial fibrosis again noted. Subtle areas of more confluent opacification in the left lung base and right lower lung field could represent developing pneumonia PLEURA: No significant pleural effusion identified. No pneumothorax apparent. CARDIOVASCULAR: Heart is enlarged. OSSEOUS STRUCTURES: No significant abnormalities. VISUALIZED UPPER ABDOMEN: Normal. OTHER FINDINGS: None. IMPRESSION: Chronic interstitial fibrosis again noted. Subtle areas of more confluent opacification in the left lung base and right lower lung field could represent developing pneumonia
[2016-10-20 13:51] VITALS: BP 121/78; O2SAT 96
== END 2016-10-20 13:54 | disposition home or self-care (01) ==
LOC: H.ER 10:45
DX: R53.1 Weakness (principal); M06.9 Rheumatoid arthritis, unspecified; J44.0 Chronic obstructive pulmonary disease with (acute) lower respiratory infection; J44.1 Chronic obstructive pulmonary disease with (acute) exacerbation; J84.9 Interstitial pulmonary disease, unspecified; I25.10 Atherosclerotic heart disease of native coronary artery without angina pectoris; I10 Essential (primary) hypertension; N40.0 Benign prostatic hyperplasia without lower urinary tract symptoms; Z79.82 Long term (current) use of aspirin; Z95.5 Presence of coronary angioplasty implant and graft; F41.9 Anxiety disorder, unspecified
CPT/HCPCS: 71020; 80048; 82550; 85025; 85651; 87070; 87430; 96374; 96375; 99282; J1885; J2270

== ENCOUNTER 2016-11-28 13:42 | Inpatient (IN) | payer MEDICARE, MEDICAID ==
[2016-11-28 13:42] VITALS: BMI 31.8
[2016-11-28] MEDS ORDERED: Sodium Chloride 0.9% 1,000 ML IV STA (14:23)
[2016-11-28] MEDS ORDERED: Azithromycin 500 MG in Sodium Chloride 0.9% 250 ML IVPB STA (14:25)
[2016-11-28] MEDS ORDERED: Azithromycin 500 MG IV IVPB ONE (14:31)
[2016-11-28] MEDS ORDERED: cefTRIAXone (Rocephin) 1 gm Inj ONE (14:31)
--- NOTE | 2016-11-28 14:35 | ED PDOC ---
HPI: SOB/CHF/COPD Time Seen by Provider: 11/28/16 14:09 Chief Complaint (Nursing): Shortness Of Breath Chief Complaint (Provider): Shortness Of Breath History Per: Patient History/Exam Limitations: no limitations Onset/Duration Of Symptoms: Days (x2 weeks) Additional Complaint(s): Damien Lopes is a 71 year old male with a history of coronary disease and stent placement that presents to the ED with a chief complaint of cough, shortness of breath, and mild fever that he has been experiencing for the past two days. Patient states that about two weeks ago he had an upper respiratory tract infection which resolved with over the counter medication. He reports that over the last couple of days he has had a productive cough with thick phlegm that seems to be occurring more frequently. He denies any chills, chest pain, abdominal pain, nausea, or vomiting. He states that he has been eating normally. Past Medical History Reviewed: Historical Data, Nursing Documentation, Vital Signs Vital Signs: Last Vital Signs Temp 100.6 F H 11/28/16 13:47 Pulse 106 H 11/28/16 14:09 Resp 17 11/28/16 14:14 BP 94/56 L 11/28/16 14:09 Pulse Ox 98 11/28/16 14:41 - Medical History PMH: Anemia, Anxiety, Arthritis (Osteoarthritis (severe)), Asthma, Benign Prostatic Hyperplasia, CAD, COPD, Emphysema, HTN, Hypercholesterolemia, Pneumonia, Rheumatoid Arthritis, Sleep Apnea Denies: HIV, Chronic Kidney Disease - Surgical History Surgical History: Coronary Stent (x2) Other surgeries: Spleen removal - Family History Family History: States: [place], Hypertension - Social History Current smoker - smoking cessation education provided: No Alcohol: None - Home Medications Home Medications: Ambulatory Orders Medication Instructions Recorded Folic Acid 1 mg PO DAILY 01/09/16 Tamsulosin [Flomax] 0.4 mg PO HS 01/09/16 Aspirin [Ecotrin] 81 mg PO DAILY 02/19/16 Atorvastatin [Lipitor] 40 mg PO HS 04/21/16 Methotrexate 15 mg PO SUN 07/16/16 Tiotropium [Spiriva] 18 mcg IH DAILY 07/16/16 Ticagrelor [Brilinta] 90 mg PO BID 08/04/16 Albuterol/Ipratropium [Duoneb 3 3 ml INH Q8H PRN 11/28/16 mg/0.5 mg (3 ml) UD] Amitriptyline [Elavil] 10 mg PO HS 11/28/16 Diclofenac Sodium [Voltaren] 1 appl TOP QID PRN 11/28/16 Fluticasone/Salmeterol 500/50 1 puff IH Q12H 11/28/16 [Advair Diskus 500/50] Hydroxychloroquine Sulfate 200 mg PO BID 11/28/16 [Plaquenil] Ibuprofen [Motrin Tab] 800 mg PO Q6H PRN 11/28/16 Leflunomide [Arava] 20 mg PO DAILY 11/28/16 Meclizine [Antivert] 25 mg PO TID PRN 11/28/16 Metoprolol Succinate [Toprol XL] 50 mg PO DAILY 11/28/16 Promethazine HCl/Codeine 10 mg PO Q4H PRN 11/28/16 [Prometh-Codein 6.25-10 mg/5 ml] - Allergies Allergies/Adverse Reactions: Allergies Allergy/AdvReac Type Severity Reaction Status Date / Time No Known Allergies Allergy Verified 10/09/16 00:46 Review of Systems Constitutional: Positive for: Fever. Negative for: Chills Cardiovascular: Negative for: Chest Pain Respiratory: Positive for: Cough (Productive of thick phlegm), Shortness of Breath Gastrointestinal: Negative for: Nausea, Vomiting, Abdominal Pain Physical Exam - Reviewed Nursing Documentation Reviewed: Yes Vital Signs Reviewed: Yes - Physical Exam Appears: Positive for: Non-toxic, No Acute Distress Head Exam: Positive for: ATRAUMATIC, NORMOCEPHALIC Skin: Positive for: Normal Color, Warm Eye Exam: Positive for: EOMI, Normal appearance, PERRL Cardiovascular/Chest: Positive for: Regular Rate, Rhythm. Negative for: Murmur Respiratory: Positive for: Rales (Left sided, from mid to base area), Wheezing ( Scattered wheezing right side). Negative for: Normal Breath Sounds Gastrointestinal/Abdominal: Positive for: Normal Exam, Soft. Negative for: Tenderness Extremity: Positive for: Normal ROM. Negative for: Swelling Neurologic/Psych: Positive for: Alert, Oriented. Negative for: Motor/Sensory Deficits - Laboratory Results Result Diagrams: 11/28/16 14:35 - ECG O2 Sat by Pulse Oximetry: 98 (RA) Pulse Ox Interpretation: Normal Medical Decision Making Medical Decision Making: Impression: Pneumonia rule out sepsis Plan: * Chest X-Ray * EKG * CMP * CBC * ABG Shock Panel * NaCl 1000 mLs at 125 mLs/hr * Rocephin 1 gm IV * Zithromax 500 mg/250 mL NS * O2 Nasal Cannula * Flu Swab * Reevaluation Scribe Attestation: Documented by Deborah Burgos, acting as a scribe for Gail Villalobos MD. Provider Scribe Attestation: All medical record entries made by the Scribe were at my direction and personally dictated by me. I have reviewed the chart and agree that the record accurately reflects my personal performance of the history, physical exam, medical decision making, and the department course for this patient. I have also personally directed, reviewed, and agree with the discharge instructions and disposition. Disposition - Clinical Impression Clinical Impression: Pneumonia - Patient ED Disposition Is Patient to be Admitted: Transfer of Care - Disposition Disposition Time: 14:49 Condition: GUARDED Forms: [employer] (Uzbek) Patient Signed Over To: Velma Yoon Present On Arrival: None
[2016-11-28 14:43] LABS: BASO # 0.1 K/uL (0.0-0.2); BASO % 0.7 % (0.0-2.0); EOS # 0.3 K/uL (0.0-0.7); EOS % 1.2 % (0.0-4.0); HEMATOCRIT 42.1 % (35.0-51.0); LYMPH # 2.6 K/uL (1.0-4.3); LYMPH % 12.3 % (20.0-40.0); MEAN CELL VOLUME 89.4 fl (80.0-94.0); MEAN CORPUSCULAR HEMOGLOBIN 28.4 pg (27.0-31.0); MEAN CORPUSCULAR HGB CONC 31.7 g/dL (33.0-37.0); MEAN PLATELET VOLUME 10.5 fl (7.2-11.7); MONO # 2.3 K/uL (0.0-0.8); MONO % 10.9 % (0.0-10.0); NEUT % 74.9 % (50.0-75.0); RED CELL DISTRIBUTION WIDTH 17.4 % (11.5-14.5); WHITE BLOOD COUNT 21.4 K/uL (4.8-10.8)
[2016-11-28 14:50] LABS: ABG ALLEN TEST YES; ARTERIAL BLOOD GAS HCO3 24.2 mmol/L (21-28); ARTERIAL BLOOD GAS MODE RA; ARTERIAL BLOOD GAS PH 7.49 (7.35-7.45); ARTERIAL BLOOD GAS PO2 100 mm/Hg (80-100)
[2016-11-28 14:53] LABS: ALB/GLOB RATIO 1.2 (1.0-2.1); ALKALINE PHOSPHATASE 95 U/L (38-126); ALT/SGPT 25 U/L (21-72); AST/SGOT 26 U/L (17-59); BILIRUBIN,TOTAL 0.5 mg/dl (0.2-1.3); BLOOD UREA NITROGEN 12 mg/dl (9-20); CALCIUM 9.2 mg/dL (8.4-10.2); CARBON DIOXIDE 22 mmol/L (22-30); CHLORIDE 103 mmol/L (98-107); GFR AFRICAN-AMERICAN > 60; GLUCOSE,RANDOM 90 mg/dL (75-110); POTASSIUM 3.9 MMOL/L (3.6-5.0); SODIUM 139 mmol/l (132-148); TOTAL PROTEIN 7.4 G/DL (6.3-8.2)
[2016-11-28] MEDS ORDERED: levoFLOXacin 750 mg in D5W 150 ML BAG IVPB STA (15:24)
--- NOTE | 2016-11-28 15:38 | ED PDOC ---
- Laboratory Results Result Diagrams: 11/28/16 14:35 11/28/16 14:35 - ECG ECG Rhythm: Positive for: Normal QRS, Normal ST Segment, Sinus Rhythm O2 Sat by Pulse Oximetry: 100 - Progress ED Course And Treament: 3p Rec'd from Dr Villalobos. Pt with pneumonia pending labs and admission. LLL on CXR 310p WBC elevated. On reeval BP improved with IVF. No other emergently significant lab abnormalities. DW Dr Son PMD for admission. Requests broader coverage antibiotics for pneumonia due to h/o comorbidities and steroid use. Disposition Counseled Patient/Family Regarding: Studies Performed, Diagnosis - Clinical Impression Clinical Impression: Pneumonia, Sepsis - POA Present On Arrival: None - Disposition Disposition: Admitted as In-Patient Disposition Time: 15:00 Condition: FAIR Forms: [facility] (Urdu)
--- NOTE | 2016-11-28 15:43 | RAD ---
HISTORY: cough,phlegm fever COMPARISON: Comparison made with prior study 10/20/[address] scan CTA chest dated 10/09/2016 FINDINGS: LUNGS: Chronic interstitial changes including fibrosis, scarring and honeycombing changes again noted though more pronounced in the mid to upper lung monsalve. A more confluent opacity in the right upper/ mid lung zone just above the level of the minor fissure. Possibility of developing right upper lobe infiltrate could be considered. PLEURA: No significant pleural effusion identified, no pneumothorax apparent. CARDIOVASCULAR: Normal. OSSEOUS STRUCTURES: No significant abnormalities. VISUALIZED UPPER ABDOMEN: Normal. OTHER FINDINGS: None. IMPRESSION: Chronic interstitial changes including fibrosis, scarring and honeycombing changes again noted though more pronounced in the mid to upper lung monsalve. A more confluent opacity in the right upper/ mid lung zone just above the level of the minor fissure. Possibility of developing right upper lobe infiltrate could be considered.
[2016-11-28] MEDS ORDERED: Piperacillin/Tazobact 4.5 GM in Sodium Chloride 0.9% 100 ML IV ONE (15:45)
[2016-11-28] MEDS ORDERED: levoFLOXacin 750 mg in D5W 750 MG/150 ML BAG IVPB ONE (15:56)
[2016-11-28] MEDS ORDERED: Patient's Own Med (Diclofenac Sodium [Voltaren] 1 APPL) TOP PRN (18:23)
[2016-11-28] MEDS ORDERED: Sodium Chloride 3% for Inhalation 4 ML VIAL.NEB IH PRN (18:29)
[2016-11-28] MEDS ORDERED: Influenza Vaccine 18yr & older 0.5 ML/45 MCG SYR IM ONE (19:03)
[2016-11-28] MEDS: Sodium Chloride 0.9% 1,000 ML IV SCH (19:19)
[2016-11-28] MEDS: Albuterol-Ipratrop 3 mg / 0.5 (3 ml) UD INH SCH (20:30)
[2016-11-28] MEDS: Piperacillin/Tazobact 3.375 GM in Sodium Chloride 0.9% 100 ML IVPB SCH (21:40)
[2016-11-28] MEDS: Ciprofloxacin 400mg/200ml D5W 400 MG/200 ML BAG IVPB SCH (21:41)
[2016-11-29] MEDS: Albuterol-Ipratrop 3 mg / 0.5 (3 ml) UD INH SCH ×7 (00:12→23:17)
[2016-11-29] MEDS: Piperacillin/Tazobact 3.375 GM in Sodium Chloride 0.9% 100 ML IVPB SCH ×4 (04:28→22:15)
--- NOTE | 2016-11-29 06:35 | CARD ---
APPROVED REPORT EKG Measurement Heart [id number] <Conclusion> Normal sinus rhythm Possible Left atrial enlargement Borderline ECG
[2016-11-29] MEDS: Sodium Chloride 0.9% 1,000 ML IV SCH ×2 (07:28→15:00)
[2016-11-29 07:29] LABS: MEAN CELL VOLUME 88.6 fl (80.0-94.0); MEAN CORPUSCULAR HEMOGLOBIN 28.4 pg (27.0-31.0); MEAN CORPUSCULAR HGB CONC 32.1 g/dL (33.0-37.0); RED CELL DISTRIBUTION WIDTH 16.5 % (11.5-14.5); WHITE BLOOD COUNT 17.2 K/uL (4.8-10.8)
[2016-11-29 07:36] LABS: ALB/GLOB RATIO 1.1 (1.0-2.1); ALKALINE PHOSPHATASE 65 U/L (38-126); ALT/SGPT 27 U/L (21-72); AST/SGOT 22 U/L (17-59); BILIRUBIN,TOTAL 0.2 mg/dl (0.2-1.3); BLOOD UREA NITROGEN 11 mg/dl (9-20); CALCIUM 8.2 mg/dL (8.4-10.2); CARBON DIOXIDE 24 mmol/L (22-30); CHLORIDE 108 mmol/L (98-107); CHOLESTEROL 88 mg/dL (0-199); GFR AFRICAN-AMERICAN > 60; GLUCOSE,RANDOM 90 mg/dL (75-110); POTASSIUM 3.6 MMOL/L (3.6-5.0); SODIUM 140 mmol/l (132-148); TOTAL PROTEIN 5.9 G/DL (6.3-8.2)
[2016-11-29 07:50] LABS: T4 7.67 ug/dl (5.5-11.0)
[2016-11-29 08:03] LABS: THYROID STIMULATING HORMONE 0.12 mIU/ML (0.46-4.68)
[2016-11-29] MEDS: Metoprolol Succinate 50 mg XL Tab PO SCH (08:54)
[2016-11-29] MEDS: Ciprofloxacin 400mg/200ml D5W 400 MG/200 ML BAG IVPB SCH ×2 (08:55→20:54)
[2016-11-29] MEDS: Enoxaparin 40 mg Syringe SC SCH (08:55)
[2016-11-29] MEDS: Promethazine/Cod 6.25mg-10mg/5ml Syr UD PO PRN ×2 (09:04→20:52)
--- NOTE | 2016-11-29 14:19 | CP.PCM.HP ---
History of Present Illness - History of Present Illness History of Present Illness: 71 y/o M, brought to ER [facility] [place] to be evaluated for SOB, onset 2 weeks [employer] with no relief. Pt brought by EMS c/o difficulty breathing since x 2 weeks but increased in the last 2 days [employer] associated to intermittent productive cough with thick yellowish phlegms and worsening symptoms of low grade fever x 2 days ( in ER TMAx 100.6, HR: 108, WBC: 21.4), Pleuritic pain with coughing, GREEN, nausea, vomiting (last episode on 11/27/16) and dizziness. Aggravated factor: Increased pain with coughing. Pt denied: Chills, numbness, syncope, CP, diarrhea, abdominal pain, urinary symptoms, sick contact, recent travel. PMHx: COPD, ANDRZEJ, Emphysema, Asthma, ILD, HTN, Coronary stent x2, R/A. O/A, Hx shingles, Anxiety. CXR shows: Possible RUL infiltrates. EKG: Normal sinus rhythm. Present on Admission - Present on Admission Any Indicators Present on Admission: No Review of Systems - Constitutional Constitutional: Sleep Apnea (Hx.) - EENT Eyes: Requires Corrective Lenses Ears: Other (negative) Nose/Mouth/Throat: Other (negative) - Cardiovascular Cardiovascular: Rapid Heart Rate - Respiratory Respiratory: Cough, Dyspnea, Dyspnea on Exertion, Change in Mucous Color, Pain with Coughing - Gastrointestinal Gastrointestinal: Nausea, Vomiting - Genitourinary Genitourinary: Other (negative) - Musculoskeletal Musculoskeletal: Arthralgias - Integumentary Integumentary: Other (negative) - Neurological Neurological: Dizziness - Psychiatric Psychiatric: Anxiety, Depression - Endocrine Endocrine: Other (negative) - Hematologic/Lymphatic Hematologic: Other (negative) Past Patient History - Infectious Disease Hx of Infectious Diseases: None - Past Medical History & Family History Past Medical History?: Yes Pertinent Family History: [place], HTN - Past Social History Smoking Status: Former Smoker Alcohol: None Drugs: Denies Home Situation {Lives}: Alone - CARDIAC Hx Cardiac Disorders: Yes (Cardiac stent x 2) Hx Hypercholesterolemia: Yes Hx Hypertension: Yes - PULMONARY Hx Respiratory Disorders: Yes Hx Asthma: Yes Hx Chronic Obstructive Pulmonary Disease (COPD): Yes Hx Emphysema: Yes Hx Sleep Apnea: Yes - NEUROLOGICAL Hx Neurological Disorder: Yes Hx Dizziness: Yes - HEENT Hx HEENT Problems: No Hx Cataracts: No (denies) - RENAL Hx Chronic Kidney Disease: No - ENDOCRINE/METABOLIC Hx Endocrine Disorders: No Hx Diabetes Mellitus Type 2: No - HEMATOLOGICAL/ONCOLOGICAL Hx Blood Disorders: Yes Hx Anemia: Yes Hx Human Immunodeficiency Virus (HIV): No - INTEGUMENTARY Hx Dermatological Problems: No - MUSCULOSKELETAL/RHEUMATOLOGICAL Hx Musculoskeletal Disorders: Yes Hx Falls: No Hx Osteoarthritis: Yes Hx Rheumatoid Arthritis: Yes - GASTROINTESTINAL Hx Gastrointestinal Disorders: Yes Hx Gastroesophageal Reflux: Yes - GENITOURINARY/GYNECOLOGICAL Hx Genitourinary Disorders: Yes Hx Prostate Problems: Yes (BPH) - PSYCHIATRIC Hx Psychophysiologic Disorder: Yes Hx Anxiety: Yes Hx Depression: Yes Hx Substance Use: No - SURGICAL HISTORY Hx Surgeries: Yes Hx Coronary Stent: Yes (x2) Hx Splenectomy: Yes - ANESTHESIA Hx Anesthesia: Yes Hx Anesthesia Reactions: No Hx Malignant Hyperthermia: No Meds Allergies/Adverse Reactions: Allergies Allergy/AdvReac Type Severity Reaction Status Date / Time No Known Allergies Allergy Verified 10/09/16 00:46 Physical Exam - Constitutional Appears: No Acute Distress, Chronically Ill - Head Exam Head Exam: NORMAL INSPECTION - Eye Exam Eye Exam: PERRL - ENT Exam ENT Exam: Normal Exam - Neck Exam Neck exam: Positive for: Normal Inspection (at bases) - Respiratory Exam Respiratory Exam: Decreased Breath Sounds (at bases), Rhonchi (scattered) - Cardiovascular Exam Cardiovascular Exam: REGULAR RHYTHM - GI/Abdominal Exam GI & Abdominal Exam: Normal Bowel Sounds, Soft - Extremities Exam Extremities exam: Positive for: tenderness (Sholders, Hands, Knees.) - Back Exam Back exam: NORMAL INSPECTION - Neurological Exam Neurological exam: Alert, Oriented x3 Additional comments: No motor sensory deficit - Psychiatric Exam Psychiatric exam: Anxious, Depressed - Skin Skin Exam: Normal Color, Warm Results - Vital Signs Recent Vital Signs: Last Vital Signs Temp 98.7 F 11/29/16 12:26 Pulse 92 H 11/29/16 12:26 Resp 18 11/29/16 12:26 BP 104/69 11/29/16 12:26 Pulse Ox 95 11/29/16 12:26 reviewed William - Labs Result Diagrams: 12/01/16 11:45 12/01/16 11:45 Labs: Laboratory Results - last 24 hr 11/28/16 11/28/16 11/28/16 14:23 14:35 14:35 WBC 21.4 H RBC 4.71 Hgb 13.4 Hct 42.1 MCV 89.4 D MCH 28.4 MCHC 31.7 L RDW 17.4 H Plt Count 293 MPV 10.5 Neut % (Auto) 74.9 Lymph % (Auto) 12.3 L [place] % (Auto) 10.9 H Eos % (Auto) 1.2 Baso % (Auto) 0.7 Neut # 16.0 H Lymph # 2.6 [place] # 2.3 H Eos # 0.3 Baso # 0.1 pCO2 28 L pO2 100 HCO3 24.2 ABG pH 7.49 H ABG Total CO2 22.2 ABG O2 Saturation 100.0 H ABG Base Excess -0.9 Jeramie Test Yes ABG Potassium 3.8 A-a O2 Difference 15.0 Sodium 133.0 139 Chloride 104.0 103 Glucose 95 Lactate 0.8 Vent Mode Ra FiO2 21.0 Potassium 3.9 Carbon Dioxide 22 Anion Gap 17 BUN 12 Creatinine 1.2 Est GFR ( Amer) > 60 Est GFR (Non-Af Amer) 60 Random Glucose 90 Calcium 9.2 Total Bilirubin 0.5 AST 26 ALT 25 Alkaline Phosphatase 95 Total Protein 7.4 Albumin 4.1 Globulin 3.3 Albumin/Globulin Ratio 1.2 Triglycerides Cholesterol LDL Cholesterol Direct HDL Cholesterol Thyroxine (T4) TSH 3rd Generation Arterial Blood Potassium 3.8 Influenza Typ A,B (EIA) 11/28/16 11/29/16 11/29/16 14:35 06:00 06:00 WBC 17.2 H RBC 3.84 L Hgb 10.9 L D Hct 34.0 L MCV 88.6 MCH 28.4 MCHC 32.1 L RDW 16.5 H Plt Count 255 MPV Neut % (Auto) Lymph % (Auto) [place] % (Auto) Eos % (Auto) Baso % (Auto) Neut # Lymph # [place] # Eos # Baso # pCO2 pO2 HCO3 ABG pH ABG Total CO2 ABG O2 Saturation ABG Base Excess Jeramie Test ABG Potassium A-a O2 Difference Sodium 140 Chloride 108 H Glucose Lactate Vent Mode FiO2 Potassium 3.6 Carbon Dioxide 24 Anion Gap 12 BUN 11 Creatinine 0.9 Est GFR ( Amer) > 60 Est GFR (Non-Af Amer) > 60 Random Glucose 90 Calcium 8.2 L Total Bilirubin 0.2 AST 22 ALT 27 Alkaline Phosphatase 65 Total Protein 5.9 L Albumin 3.0 L D Globulin 2.8 Albumin/Globulin Ratio 1.1 Triglycerides 76 D Cholesterol 88 LDL Cholesterol Direct 32 HDL Cholesterol 31 Thyroxine (T4) 7.67 TSH 3rd Generation 0.12 L Arterial Blood Potassium Influenza Typ A,B (EIA) Negative for flu a/b reviewed J.P. - EKG Data EKG comments: reviewed J.P. - Imaging and Cardiology Chest x-ray Status: Report reviewed by me (J.P.) Assessment & Plan (1) Pneumonia Status: Acute Priority: High (2) COPD exacerbation Status: Acute Priority: High (3) HTN (hypertension) Status: Chronic Priority: Low (4) RA (rheumatoid arthritis) Status: Chronic Priority: Medium (5) CAD (coronary artery disease) Status: Chronic Priority: Medium (6) Anxiety Status: Acute Priority: Medium (7) Depression Status: Acute - Assessment and Plan (Free Text) Plan: F/U Sputum C-S, Blood C-S, CT Chest, continue Zosyn, Cipro, Vanco, Duoneb, Phenergan with Co, and rest of Tx. PT eval. - Date & Time Date: 11/29/16 Time: 12:30
[2016-11-30] MEDS: Piperacillin/Tazobact 3.375 GM in Sodium Chloride 0.9% 100 ML IVPB SCH ×4 (03:43→21:59)
[2016-11-30] MEDS: Albuterol-Ipratrop 3 mg / 0.5 (3 ml) UD INH SCH ×5 (04:54→19:34)
[2016-11-30] MEDS: Cholecalciferol 400 Intl Units Tab PO SCH (08:52)
[2016-11-30] MEDS: Enoxaparin 40 mg Syringe SC SCH (08:58)
[2016-11-30] MEDS: Metoprolol Succinate 50 mg XL Tab PO SCH (08:59)
[2016-11-30] MEDS: Ciprofloxacin 400mg/200ml D5W 400 MG/200 ML BAG IVPB SCH ×2 (09:02→20:41)
[2016-11-30 10:35] LABS: RBC URINE 1 /hpf (0-3); URINE BILIRUBIN NEGATIVE (NEGATIVE); URINE BLOOD NEGATIVE (NEGATIVE); URINE COLOR YELLOW (YELLOW); URINE GLUCOSE (UA) NEG (Normal); URINE KETONE NEGATIVE (NEGATIVE); URINE LEUKOCYTE ESTERASE TRACE Leu/uL (Negative); URINE PROTEIN NEGATIVE (NEGATIVE); URINE UROBILINOGEN 0.2-1.0 mg/dL (0.2-1.0); WBC URINE 1 /hpf (0-5)
--- NOTE | 2016-11-30 11:37 | CT ---
PROCEDURE: CT Chest without contrast HISTORY: Pneumonia COMPARISON: 10/09/2016 TECHNIQUE: Contiguous axial images were obtained through the chest without intravenous contrast enhancement. Sagittal and coronal reconstructions were performed. Radiation dose (DLP): 603 mGy-cm. This CT exam was performed using one or more of the following dose reduction techniques: Automated exposure control, adjustment of the mA and/or kV according to patient size, and/or use of iterative reconstruction technique. FINDINGS: LUNGS: Diffuse chronic interstitial fibrotic changes are identified including bilateral apical pleural reticular nodular changes and subpleural emphysematous change. Additional new small infiltrate is seen posteriorly in the right upper lobe adjacent to the fissure on axial images 43 through 50 series 3. Additional areas of subpleural fibrotic change are seen in the lung bases, probably unchanged. Mild scattered areas of bronchiectasis are also appreciated. . MEDIASTINUM: Scattered small mediastinal lymph nodes are once again appreciated, more than likely reactive and grossly unchanged on this noncontrast exam. Heart is unchanged with minimal pericardial fluid. Pulmonary arteries are mildly enlarged suggesting possible pulmonary artery hypertension. Coronary artery calcification is also appreciated. There is stable tortuosity and atherosclerotic change of the aorta. PLEURA: Small posterior pleural effusions or chronic pleural thickening are noted, probably unchanged or minimally improved posteriorly on the right. No pneumothorax. No new pleural based mass seen. BONES: Degenerative changes are once again appreciated in the spine. No lytic process or compression fracture is noted. No new rib fracture is clearly seen. UPPER ABDOMEN: There is stable appearance of the upper abdomen including lobulated appearance of the spleen in the left upper quadrant and also incompletely evaluated low-density probable cyst in the posterior aspect of the kidney. Visualized liver, pancreas, and gallbladder are unremarkable as well as visualized portions of the stomach and duodenum. No ascites is seen in the upper abdomen. Retrocrural regions are stable. OTHER FINDINGS: Visualized esophagus is unremarkable. Thoracic inlet is stable. No axillary adenopathy is seen. IMPRESSION: Noncontrast imaging reveals diffuse chronic previously noted interstitial fibrotic changes and scarring. There is a new small posterior right upper lobe infiltrate noted which may reflect superimposed infectious or other inflammatory process. This is seen on the recent chest x-ray dated 11/28/2016. Follow-up chest radiograph would be suggested. No new adenopathy. Stable posterior small pleural effusion or pleural thickening.
--- NOTE | 2016-11-30 14:57 | CP.PCM.PN ---
Subjective - Date & Time of Evaluation Date of Evaluation: 11/30/16 Time of Evaluation: 14:00 - Subjective Subjective: F/U PNA. Pt c/o of cough, at times paroxysmal, also generalized joint pain. Objective - Vital Signs/Intake and Output Vital Signs (last 24 hours): Temp Pulse Resp BP Pulse Ox 99.5 F 74 18 124/81 99 11/30/16 12:00 11/30/16 12:00 11/30/16 12:00 11/30/16 12:00 11/30/16 12:00 - Medications Medications: Current Medications Albuterol/Ipratropium (Duoneb 3 Mg/0.5 Mg (3 Ml) Ud) 3 ml INH RQ4 [facility] Last Admin: 11/30/16 11:12 Dose: 3 ml Amitriptyline HCl (Elavil) 10 mg PO HS [facility] Last Admin: 11/29/16 21:00 Dose: 10 mg Aspirin (Ecotrin) 81 mg PO DAILY [facility] Last Admin: 11/30/16 08:53 Dose: 81 mg Atorvastatin Calcium (Lipitor) 40 mg PO HS [facility] Last Admin: 11/29/16 21:00 Dose: 40 mg Enoxaparin Sodium (Lovenox) 40 mg SC DAILY [facility] PRN Reason: Protocol Last Admin: 11/30/16 08:58 Dose: Not Given Folic Acid (Folic Acid) 1 mg PO DAILY [facility] Last Admin: 11/30/16 08:58 Dose: 1 mg Hydroxychloroquine Sulfate (Plaquenil) 200 mg PO BID [facility] Last Admin: 11/30/16 08:53 Dose: 200 mg Ciprofloxacin (Cipro 400mg/200ml Dsw) 400 mg in 200 mls @ 200 mls/hr IVPB Q12 [facility] PRN Reason: Protocol Last Admin: 11/30/16 09:02 Dose: 200 mls/hr Vancomycin HCl 1 gm/ Sodium (Chloride) 250 mls @ 166.667 mls/hr IVPB Q12H [facility] PRN Reason: Protocol Last Admin: 11/30/16 09:00 Dose: 166.667 mls/hr Piperacillin Sod/Tazobactam (Sod 3.375 gm/ Sodium Chloride) 100 mls @ 100 mls/ hr IVPB Q6 TOM PRN Reason: Protocol Last Admin: 11/30/16 09:00 Dose: 100 mls/hr Ibuprofen (Motrin Tab) 800 mg PO Q8 PRN PRN Reason: Pain, moderate (4-7) Last Admin: 11/30/16 12:26 Dose: 800 mg Meclizine HCl (Antivert) 25 mg PO TID PRN PRN Reason: Dizziness Methotrexate (Methotrexate) 15 mg PO SUN [facility] PRN Reason: Protocol Last Admin: 11/30/16 08:53 Dose: 15 mg Metoprolol Succinate (Toprol Xl) 50 mg PO DAILY [facility] Last Admin: 11/30/16 08:59 Dose: 50 mg Promethazine HCl/Codeine (Phenergan/Codeine Oral Syrup) 10 ml PO Q4H PRN PRN Reason: Cough Last Admin: 11/29/16 20:52 Dose: 10 ml Tamsulosin HCl (Flomax) 0.4 mg PO HS [facility] Last Admin: 11/29/16 21:00 Dose: 0.4 mg Ticagrelor (Brilinta) 90 mg PO BID [facility] Last Admin: 11/30/16 09:02 Dose: 90 mg Vitamin D (Vitamin D 400 Intl Units Tab) 400 intlu PO DAILY [facility] Last Admin: 11/30/16 08:52 Dose: 400 intlu Zolpidem Tartrate (Ambien) 10 mg PO HS [facility] Last Admin: 11/29/16 22:14 Dose: 10 mg - Labs Labs: 11/29/16 06:00 11/29/16 06:00 - Constitutional Appears: No Acute Distress - Head Exam Head Exam: NORMAL INSPECTION - Eye Exam Eye Exam: PERRL - ENT Exam ENT Exam: Normal Exam - Neck Exam Neck Exam: Normal Inspection - Respiratory Exam Respiratory Exam: Decreased Breath Sounds (at bases), Rhonchi (scattered) - Cardiovascular Exam Cardiovascular Exam: REGULAR RHYTHM - GI/Abdominal Exam GI & Abdominal Exam: Soft, Normal Bowel Sounds - Extremities Exam Extremities Exam: Tenderness (Sholuders, hands, knees.) - Back Exam Back Exam: NORMAL INSPECTION - Neurological Exam Neurological Exam: Alert, Awake, Oriented x3. absent: Motor Sensory Deficit - Psychiatric Exam Psychiatric exam: Anxious, Depressed - Skin Skin Exam: Normal Color, Warm Assessment and Plan (1) Pneumonia Status: Acute (2) COPD exacerbation Status: Acute (3) HTN (hypertension) Status: Chronic (4) RA (rheumatoid arthritis) Status: Chronic (5) CAD (coronary artery disease) Status: Chronic (6) Anxiety Status: Acute (7) Depression Status: Acute - Assessment and Plan (Free Text) Plan: CT Chest: New small posterior RUL infiltrate. Continue current abx IV coverage and rest of Tx.
[2016-11-30] MEDS: Sodium Chloride 0.9% 1,000 ML IV SCH (19:03)
[2016-12-01] MEDS: Albuterol-Ipratrop 3 mg / 0.5 (3 ml) UD INH SCH ×6 (00:51→19:04)
[2016-12-01] MEDS: Piperacillin/Tazobact 3.375 GM in Sodium Chloride 0.9% 100 ML IVPB SCH ×4 (04:49→21:42)
[2016-12-01] MEDS: Sodium Chloride 0.9% 1,000 ML IV SCH ×2 (04:53→09:02)
[2016-12-01] MEDS: Cholecalciferol 400 Intl Units Tab PO SCH (08:51)
[2016-12-01] MEDS: Promethazine/Cod 6.25mg-10mg/5ml Syr UD PO PRN (08:51)
[2016-12-01] MEDS: Ciprofloxacin 400mg/200ml D5W 400 MG/200 ML BAG IVPB SCH ×2 (08:52→20:25)
[2016-12-01] MEDS: Metoprolol Succinate 50 mg XL Tab PO SCH (09:02)
--- NOTE | 2016-12-01 09:09 | PQF GENQUE ---
This form is a permanent part of the medical record 12/01/16 Dr Son, ER has documented the following information ( SEPSIS ) with no mention of this diagnosis in your documentation. Please indicate in your next progress note and/or discharge summary your agreement with fundraising consultant or provide clarification that this diagnosis is not a current condition AFTER WORKUP. Pt brought by EMS c/o difficulty breathing since x 2 weeks but increased in the last 2 days [employer] associated to intermittent productive cough with thick yellowish phlegm and worsening symptoms of low grade fever x 2 days ( in ER TMAX 100.6, HR: 108, WBC: 21.4), Pleuritic pain with coughing, GREEN , nausea, vomiting (last episode on 11/27/16) and dizziness. Treated with Triple IVAB: Cipro, Vancomycin and Zosyn. Blood CS no growth 48 Hours, Sputum CS pending. TEMP 100.6, 99.1 , HR 108,106, 94, 97, 86, 70-60s, BP 82/58, 94/56, 122/89, 102/69, 112/76, 99/67, R 20,17,18,23 Clarification of your documentation is requested to better reflect the severity of illness and intensity of treatment of your patient. Indicators present [] Specify: [] [] Specify: [] [] Specify: [] [] Specify: [] Location in the medical record that reflects the above clinical findings: [] Treatment Provided: [] PHYSICIAN'S RESPONSE Based on your medical judgment of the clinical indicators outlined above please clarify the following: [] Practitioner response [] If unable to determine, please check the box, sign and date. Present On Admission (POA) Indicator: [] Present at the time of admission [] Not present at the time of admission [] Clinically Undetermined In responding to this query, please exercise your independent professional judgment. The fact that a question is asked does not imply that any particular answer is desired or expected. Thank you for your clarification on this documentation. If you have any questions please call:[phone] * Thank you, Elaine Madrid RN CDMP MTDD
--- NOTE | 2016-12-01 09:15 | PQF PNEUMO ---
This form is a permanent part of the medical record 12/01/16 Dr. Son, AFTER WORKUP please clarify the TYPE of Pneumonia if known. Pt brought by EMS c/o difficulty breathing since x 2 weeks but increased in the last 2 days [employer] associated to intermittent productive cough with thick yellowish phlegms and worsening symptoms of low grade fever x 2 days ( in ER TMAX 100.6, HR: 108, WBC: 21.4), Pleuritic pain with coughing, GREEN , nausea, vomiting (last episode on 11/27/16) and dizziness. Treated with Triple IVAB: Cipro, Vancomycin and Zosyn. Blood CS no growth 48 Hours, Sputum CS pending. CXR : Possibility of RUL infiltrates developing. Clarification of your documentation is requested to better reflect the severity of illness and intensity of treatment of your patient. Indicators present [x] Documented diagnosis of pneumonia [x] X-ray findings: [] Positive Sputum cultures : PENDING [x] Cough w/ fever [x] Abnormal lungs sounds [] Poor gag reflex [] Speech consults/swallow evaluation [] Vent dependence [] Other: [] Location in the medical record that reflects the above clinical findings: [] Treatment Provided: [x] PHYSICIAN'S RESPONSE Based on your medical judgment of the clinical indicators outlined above, are you treating this patient for a known or suspected: [] Aspiration pneumonia [] Viral pneumonia [] Bacterial pneumonia Please specify organism: [] Bronchopneumonia Please specify organism [] Interstitial Pneumonia [] Other, please indicate [] If Unable to Determine, please check the box, sign and date. Note: CAP, HAP, and HCAP indicate where the pneumonia was acquired, not a specific type. Present On Admission (POA) Indicator: [] Present at the time of admission [] Not present at the time of admission [] Clinically Undetermined In responding to this query, please exercise your independent professional judgment. The fact that a question is asked does not imply that any particular answer is desired or expected. Thank you for your clarification on this documentation. If you have any questions please call:extension [phone] * Thank you, Elaine Madrid RN CDMP [facility]
[2016-12-01] MEDS ORDERED: methylPREDNISolone 30 MG in Sodium Chloride 0.9% 50 ML IVPB SCH (11:45)
[2016-12-01 11:55] LABS: HEMATOCRIT 31.4 % (35.0-51.0); MEAN CORPUSCULAR HEMOGLOBIN 28.6 pg (27.0-31.0); MEAN CORPUSCULAR HGB CONC 32.5 g/dL (33.0-37.0); RED CELL DISTRIBUTION WIDTH 16.7 % (11.5-14.5); WHITE BLOOD COUNT 15.6 K/uL (4.8-10.8)
[2016-12-01 12:16] LABS: BLOOD UREA NITROGEN 6 mg/dl (9-20); CALCIUM 8.7 mg/dL (8.4-10.2); CARBON DIOXIDE 25 mmol/L (22-30); CHLORIDE 110 mmol/L (98-107); GFR AFRICAN-AMERICAN > 60; GLUCOSE,RANDOM 125 mg/dL (75-110); POTASSIUM 3.6 MMOL/L (3.6-5.0); SODIUM 142 mmol/l (132-148)
[2016-12-01] MEDS: Enoxaparin 40 mg Syringe SC SCH (12:21)
[2016-12-01] MEDS: MethylPREDNISolone 40 mg Vial IVP SCH ×2 (12:40→20:29)
--- NOTE | 2016-12-01 14:25 | CP.PCM.PN ---
Subjective - Date & Time of Evaluation Date of Evaluation: 12/01/16 Time of Evaluation: 12:40 - Subjective Subjective: F/U PNA Pt c/o of cough at times paroxysmal and at times with scanty yellowish phlegms, generalized joint pain. Objective - Vital Signs/Intake and Output Vital Signs (last 24 hours): Temp Pulse Resp BP Pulse Ox 98.4 F 80 18 106/62 96 12/01/16 12:29 12/01/16 12:29 12/01/16 12:29 12/01/16 12:29 12/01/16 12:29 - Medications Medications: Current Medications Albuterol/Ipratropium (Duoneb 3 Mg/0.5 Mg (3 Ml) Ud) 3 ml INH RQ4 [facility] Last Admin: 12/01/16 11:21 Dose: 3 ml Amitriptyline HCl (Elavil) 10 mg PO HS [facility] Last Admin: 11/30/16 21:53 Dose: 10 mg Aspirin (Ecotrin) 81 mg PO DAILY [facility] Last Admin: 12/01/16 09:02 Dose: 81 mg Atorvastatin Calcium (Lipitor) 40 mg PO HS [facility] Last Admin: 11/30/16 21:53 Dose: 40 mg Enoxaparin Sodium (Lovenox) 40 mg SC DAILY [facility] PRN Reason: Protocol Last Admin: 12/01/16 12:21 Dose: Not Given Folic Acid (Folic Acid) 1 mg PO DAILY [facility] Last Admin: 12/01/16 08:51 Dose: 1 mg Hydroxychloroquine Sulfate (Plaquenil) 200 mg PO BID [facility] Last Admin: 12/01/16 08:51 Dose: 200 mg Ciprofloxacin (Cipro 400mg/200ml Dsw) 400 mg in 200 mls @ 200 mls/hr IVPB Q12 [facility] PRN Reason: Protocol Last Admin: 12/01/16 08:52 Dose: 200 mls/hr Vancomycin HCl 1 gm/ Sodium (Chloride) 250 mls @ 166.667 mls/hr IVPB Q12H [facility] PRN Reason: Protocol Last Admin: 12/01/16 08:52 Dose: 166.667 mls/hr Piperacillin Sod/Tazobactam (Sod 3.375 gm/ Sodium Chloride) 100 mls @ 100 mls/ hr IVPB Q6 [facility] PRN Reason: Protocol Last Admin: 12/01/16 09:06 Dose: 100 mls/hr Sodium Chloride (Sodium Chloride 0.9%) 1,000 mls @ 125 mls/hr IV .Q8H [facility] Stop: 12/01/16 16:24 Last Admin: 12/01/16 09:02 Dose: 125 mls/hr Ibuprofen (Motrin Tab) 800 mg PO Q8 PRN PRN Reason: Pain, moderate (4-7) Last Admin: 12/01/16 08:50 Dose: 800 mg Meclizine HCl (Antivert) 25 mg PO TID PRN PRN Reason: Dizziness Methotrexate (Methotrexate) 15 mg PO SUN [facility] PRN Reason: Protocol Last Admin: 11/30/16 08:53 Dose: 15 mg Methylprednisolone (Solu-Medrol) 30 mg IVP Q12 [facility] Last Admin: 12/01/16 12:40 Dose: 30 mg Metoprolol Succinate (Toprol Xl) 50 mg PO DAILY [facility] Last Admin: 12/01/16 09:02 Dose: 50 mg Promethazine HCl/Codeine (Phenergan/Codeine Oral Syrup) 10 ml PO Q4H PRN PRN Reason: Cough Last Admin: 12/01/16 08:51 Dose: 10 ml Tamsulosin HCl (Flomax) 0.4 mg PO HS [facility] Last Admin: 11/30/16 21:53 Dose: 0.4 mg Ticagrelor (Brilinta) 90 mg PO BID [facility] Last Admin: 12/01/16 08:51 Dose: 90 mg Vitamin D (Vitamin D 400 Intl Units Tab) 400 intlu PO DAILY [facility] Last Admin: 12/01/16 08:51 Dose: 400 intlu Zolpidem Tartrate (Ambien) 10 mg PO HS [facility] Last Admin: 11/30/16 21:53 Dose: 10 mg - Labs Labs: 12/01/16 11:45 12/01/16 11:45 - Constitutional Appears: No Acute Distress, Chronically Ill - Head Exam Head Exam: NORMAL INSPECTION - Eye Exam Eye Exam: PERRL - ENT Exam ENT Exam: Normal Exam - Neck Exam Neck Exam: Normal Inspection - Respiratory Exam Respiratory Exam: Decreased Breath Sounds (at bases), Wheezes (scattered) - Cardiovascular Exam Cardiovascular Exam: REGULAR RHYTHM - GI/Abdominal Exam GI & Abdominal Exam: Soft, Normal Bowel Sounds - Extremities Exam Extremities Exam: Tenderness (shoulders, hands, knees.) - Back Exam Back Exam: NORMAL INSPECTION - Neurological Exam Neurological Exam: Alert, Oriented x3. absent: Motor Sensory Deficit - Psychiatric Exam Psychiatric exam: Anxious, Depressed - Skin Skin Exam: Normal Color, Warm Assessment and Plan (1) Pneumonia Status: Acute (2) COPD exacerbation Status: Acute (3) HTN (hypertension) Status: Chronic (4) RA (rheumatoid arthritis) Status: Chronic (5) CAD (coronary artery disease) Status: Chronic (6) Anxiety Status: Acute (7) Depression Status: Acute - Assessment and Plan (Free Text) Plan: CT Chest,new Pneumonia RUL, continue Cipro, Zosyn, Vanco, Duoneb, add Solumedrol, transfer to TCU.
[2016-12-02] MEDS: Albuterol-Ipratrop 3 mg / 0.5 (3 ml) UD INH SCH ×7 (00:41→23:45)
[2016-12-02] MEDS: Promethazine/Cod 6.25mg-10mg/5ml Syr UD PO PRN ×2 (00:46→21:40)
[2016-12-02] MEDS: Metoprolol Succinate 50 mg XL Tab PO SCH (09:24)
[2016-12-02] MEDS: Cholecalciferol 400 Intl Units Tab PO SCH (09:29)
[2016-12-02] MEDS: Enoxaparin 40 mg Syringe SC SCH (09:31)
[2016-12-02] MEDS: MethylPREDNISolone 40 mg Vial IVP SCH ×2 (09:32→21:41)
[2016-12-02] MEDS: Piperacillin/Tazobact 3.375 GM in Sodium Chloride 0.9% 100 ML IVPB SCH ×3 (09:35→23:35)
--- NOTE | 2016-12-02 12:52 | CP.PCM.PN ---
Subjective - Date & Time of Evaluation Date of Evaluation: 12/02/16 Time of Evaluation: 11:00 - Subjective Subjective: F/U PNA Pt with dry cough and occasional scanty amount of yellowish phlegms, no SOB, no GREEN, no chest congestion. Objective - Vital Signs/Intake and Output Vital Signs (last 24 hours): Temp Pulse Resp BP Pulse Ox 98.1 F 93 H 18 126/72 96 12/02/16 12:47 12/02/16 12:47 12/02/16 12:47 12/02/16 12:47 12/02/16 12:47 - Medications Medications: Current Medications Albuterol/Ipratropium (Duoneb 3 Mg/0.5 Mg (3 Ml) Ud) 3 ml INH RQ4 [facility] Last Admin: 12/02/16 11:18 Dose: 3 ml Amitriptyline HCl (Elavil) 10 mg PO HS [facility] Last Admin: 12/01/16 21:42 Dose: 10 mg Aspirin (Ecotrin) 81 mg PO DAILY [facility] Last Admin: 12/02/16 09:30 Dose: 81 mg Atorvastatin Calcium (Lipitor) 40 mg PO HS [facility] Last Admin: 12/01/16 21:42 Dose: 40 mg Ciprofloxacin (Cipro) 500 mg PO Q12 [facility] Last Admin: 12/02/16 09:23 Dose: 500 mg Enoxaparin Sodium (Lovenox) 40 mg SC DAILY [facility] PRN Reason: Protocol Last Admin: 12/02/16 09:31 Dose: 40 mg Folic Acid (Folic Acid) 1 mg PO DAILY [facility] Last Admin: 12/02/16 09:23 Dose: 1 mg Hydroxychloroquine Sulfate (Plaquenil) 200 mg PO BID [facility] Last Admin: 12/02/16 09:29 Dose: 200 mg Vancomycin HCl 1 gm/ Sodium (Chloride) 250 mls @ 166.667 mls/hr IVPB Q12H [facility] PRN Reason: Protocol Last Admin: 12/02/16 09:34 Dose: 166.667 mls/hr Piperacillin Sod/Tazobactam (Sod 3.375 gm/ Sodium Chloride) 100 mls @ 100 mls/ hr IVPB Q6 [facility] PRN Reason: Protocol Last Admin: 12/02/16 09:35 Dose: 100 mls/hr Ibuprofen (Motrin Tab) 800 mg PO Q8 PRN PRN Reason: Pain, moderate (4-7) Last Admin: 12/01/16 08:50 Dose: 800 mg Meclizine HCl (Antivert) 25 mg PO TID PRN PRN Reason: Dizziness Last Admin: 12/02/16 09:24 Dose: 25 mg Methotrexate (Methotrexate) 15 mg PO SUN [facility] PRN Reason: Protocol Last Admin: 11/30/16 08:53 Dose: 15 mg Methylprednisolone (Solu-Medrol) 30 mg IVP Q12 [facility] Last Admin: 12/02/16 09:32 Dose: 30 mg Metoprolol Succinate (Toprol Xl) 50 mg PO DAILY [facility] Last Admin: 12/02/16 09:24 Dose: 50 mg Promethazine HCl/Codeine (Phenergan/Codeine Oral Syrup) 10 ml PO Q4H PRN PRN Reason: Cough Last Admin: 12/02/16 00:46 Dose: 10 ml Tamsulosin HCl (Flomax) 0.4 mg PO [facility] Last Admin: 12/01/16 21:42 Dose: 0.4 mg Ticagrelor (Brilinta) 90 mg PO BID [facility] Last Admin: 12/02/16 09:30 Dose: 90 mg Vitamin D (Vitamin D 400 Intl Units Tab) 400 intlu PO DAILY [facility] Last Admin: 12/02/16 09:29 Dose: 400 intlu Zolpidem Tartrate (Ambien) 10 mg PO HS [facility] Last Admin: 12/01/16 21:42 Dose: 10 mg - Labs Labs: 12/01/16 11:45 12/01/16 11:45 - Constitutional Appears: No Acute Distress, Chronically Ill - Head Exam Head Exam: NORMAL INSPECTION - Eye Exam Eye Exam: PERRL - ENT Exam ENT Exam: Normal Exam - Neck Exam Neck Exam: Normal Inspection - Respiratory Exam Respiratory Exam: Decreased Breath Sounds (at bases), Rhonchi (few scattered) - Cardiovascular Exam Cardiovascular Exam: REGULAR RHYTHM - GI/Abdominal Exam GI & Abdominal Exam: Soft, Normal Bowel Sounds - Extremities Exam Extremities Exam: Tenderness (shoulders, hands, knees.) - Back Exam Back Exam: NORMAL INSPECTION - Neurological Exam Neurological Exam: Alert, Oriented x3. absent: Motor Sensory Deficit - Psychiatric Exam Psychiatric exam: Anxious, Depressed - Skin Skin Exam: Normal Color, Warm Assessment and Plan (1) MRSA pneumonia Status: Acute (2) COPD exacerbation Status: Acute (3) HTN (hypertension) Status: Chronic (4) RA (rheumatoid arthritis) Status: Chronic (5) CAD (coronary artery disease) Status: Chronic (6) Anxiety Status: Acute (7) Depression Status: Acute - Assessment and Plan (Free Text) Plan: Sputum C-S: Staph Aureus ,add Vanco , f/u ID consult , continue rest of treatment.
[2016-12-03] MEDS: Albuterol-Ipratrop 3 mg / 0.5 (3 ml) UD INH SCH ×5 (04:38→19:20)
[2016-12-03] MEDS: Piperacillin/Tazobact 3.375 GM in Sodium Chloride 0.9% 100 ML IVPB SCH ×2 (05:17→09:07)
[2016-12-03 05:30] LABS: HEMATOCRIT 32.6 % (35.0-51.0); MEAN CELL VOLUME 87.3 fl (80.0-94.0); MEAN CORPUSCULAR HEMOGLOBIN 28.1 pg (27.0-31.0); MEAN CORPUSCULAR HGB CONC 32.2 g/dL (33.0-37.0); RED CELL DISTRIBUTION WIDTH 16.9 % (11.5-14.5); WHITE BLOOD COUNT 19.1 K/uL (4.8-10.8)
[2016-12-03 05:31] LABS: BLOOD UREA NITROGEN 13 mg/dl (9-20); CALCIUM 9.4 mg/dL (8.4-10.2); CARBON DIOXIDE 24 mmol/L (22-30); CHLORIDE 110 mmol/L (98-107); GFR AFRICAN-AMERICAN > 60; GLUCOSE,RANDOM 143 mg/dL (75-110); POTASSIUM 4.3 MMOL/L (3.6-5.0); SODIUM 143 mmol/l (132-148)
[2016-12-03] MEDS: MethylPREDNISolone 40 mg Vial IVP SCH (08:46)
[2016-12-03] MEDS: Metoprolol Succinate 50 mg XL Tab PO SCH (08:47)
[2016-12-03] MEDS: Cholecalciferol 400 Intl Units Tab PO SCH (08:47)
[2016-12-03] MEDS: Enoxaparin 40 mg Syringe SC SCH (08:49)
[2016-12-03] MEDS ORDERED: Linezolid 600 mg in D5W 300 ml 600 MG/300 ML BAG IVPB SCH (11:45)
--- NOTE | 2016-12-03 13:18 | CP.PCM.PN ---
Subjective - Date & Time of Evaluation Date of Evaluation: 12/03/16 Time of Evaluation: 10:20 - Subjective Subjective: F/U MRSA PNA Pt with no A/D, occasional cough, at times scanty yellowish phlegms, no SOB, no GREEN, no chest congestion. Objective - Vital Signs/Intake and Output Vital Signs (last 24 hours): Temp Pulse Resp BP Pulse Ox 97.9 F 84 18 127/80 98 12/03/16 12:00 12/03/16 12:00 12/03/16 12:00 12/03/16 12:00 12/03/16 12:00 - Medications Medications: Current Medications Albuterol/Ipratropium (Duoneb 3 Mg/0.5 Mg (3 Ml) Ud) 3 ml INH RQ4 [facility] Last Admin: 12/03/16 11:07 Dose: 3 ml Amitriptyline HCl (Elavil) 10 mg PO HS [facility] Last Admin: 12/02/16 21:40 Dose: 10 mg Aspirin (Ecotrin) 81 mg PO DAILY [facility] Last Admin: 12/03/16 08:48 Dose: 81 mg Atorvastatin Calcium (Lipitor) 40 mg PO HS [facility] Last Admin: 12/02/16 21:40 Dose: 40 mg Enoxaparin Sodium (Lovenox) 40 mg SC DAILY [facility] PRN Reason: Protocol Last Admin: 12/03/16 08:49 Dose: Not Given Folic Acid (Folic Acid) 1 mg PO DAILY [facility] Last Admin: 12/03/16 08:46 Dose: 1 mg Hydroxychloroquine Sulfate (Plaquenil) 200 mg PO BID [facility] Last Admin: 12/03/16 08:46 Dose: 200 mg Linezolid (Zyvox 600mg/300ml D5w) 600 mg in 300 mls @ 300 mls/hr IVPB Q12 [facility] Ibuprofen (Motrin Tab) 800 mg PO Q8 PRN PRN Reason: Pain, moderate (4-7) Last Admin: 12/01/16 08:50 Dose: 800 mg Meclizine HCl (Antivert) 25 mg PO TID PRN PRN Reason: Dizziness Last Admin: 12/03/16 08:46 Dose: 25 mg Methotrexate (Methotrexate) 15 mg PO SUN [facility] PRN Reason: Protocol Last Admin: 11/30/16 08:53 Dose: 15 mg Methylprednisolone (Solu-Medrol) 30 mg IVP Q12 [facility] Last Admin: 12/03/16 08:46 Dose: 30 mg Metoprolol Succinate (Toprol Xl) 50 mg PO DAILY [facility] Last Admin: 12/03/16 08:47 Dose: 50 mg Prednisone (Prednisone Tab) 20 mg PO DAILY [facility] Promethazine HCl/Codeine (Phenergan/Codeine Oral Syrup) 10 ml PO Q4H PRN PRN Reason: Cough Last Admin: 12/02/16 21:40 Dose: 10 ml Tamsulosin HCl (Flomax) 0.4 mg PO [facility] Last Admin: 12/02/16 21:40 Dose: 0.4 mg Ticagrelor (Brilinta) 90 mg PO BID [facility] Last Admin: 12/03/16 08:45 Dose: 90 mg Vitamin D (Vitamin D 400 Intl Units Tab) 400 intlu PO DAILY [facility] Last Admin: 12/03/16 08:47 Dose: 400 intlu Zolpidem Tartrate (Ambien) 10 mg PO [facility] Last Admin: 12/02/16 21:40 Dose: 10 mg - Labs Labs: 12/03/16 04:50 12/03/16 04:50 - Constitutional Appears: No Acute Distress, Chronically Ill - Head Exam Head Exam: NORMAL INSPECTION - Eye Exam Eye Exam: PERRL - ENT Exam ENT Exam: Normal Exam - Neck Exam Neck Exam: Normal Inspection - Respiratory Exam Respiratory Exam: Decreased Breath Sounds (at bases), Wheezes (few scattered) - Cardiovascular Exam Cardiovascular Exam: REGULAR RHYTHM - GI/Abdominal Exam GI & Abdominal Exam: Soft, Normal Bowel Sounds - Extremities Exam Extremities Exam: Tenderness (shoulders, hands, knees.) - Back Exam Back Exam: NORMAL INSPECTION - Neurological Exam Neurological Exam: Alert, Oriented x3. absent: Motor Sensory Deficit - Psychiatric Exam Psychiatric exam: Anxious, Depressed - Skin Skin Exam: Normal Color, Warm Assessment and Plan (1) MRSA pneumonia Status: Acute (2) COPD exacerbation Status: Acute (3) HTN (hypertension) Status: Chronic (4) RA (rheumatoid arthritis) Status: Chronic (5) CAD (coronary artery disease) Status: Chronic (6) Anxiety Status: Acute (7) Depression Status: Acute - Assessment and Plan (Free Text) Plan: Start Zyvox IV, continue rest of Tx.
--- NOTE | 2016-12-03 13:51 | CP.PCM.CON ---
History of Present Illness - History of Present Illness History of Present Illness: 71 year old male with a history of coronary disease and stent placement that presents to the ED with a chief complaint of cough, shortness of breath, and mild fever that he has been experiencing for the past two days. Patient states that about two weeks ago he had an upper respiratory tract infection which resolved with over the counter medication. He reports that over the last couple of days he has had a productive cough with thick phlegm that seems to be occurring more frequently. He denies any chills, chest pain, abdominal pain, nausea, or vomiting. He states that he has been eating normally. found to have pneumonia MRSA + started IV zyvox ID Called - Medical History PMH: Anemia, Anxiety, Arthritis (Osteoarthritis (severe)), Asthma, Benign Prostatic Hyperplasia, CAD, COPD, Emphysema, HTN, Hypercholesterolemia, Pneumonia, Rheumatoid Arthritis, Sleep Apnea Denies: HIV, Chronic Kidney Disease Review of Systems - Constitutional Constitutional: As Per HPI - EENT Eyes: absent: As Per HPI, Blind Spots, Blurred Vision, Change in Vision, Decreased Night Vision, Diplopia, Discharge, Dry Eye, Exophthalmos, Floaters, Irritation, Itchy Eyes, Loss of Peripheral Vision, Pain, Photophobia, Requires Corrective Lenses, Sees Flashes, Spots in Vision, Tunnel Vision, Other Visual Disturbances, Loss of Vision, Other Ears: absent: As Per HPI, Decreased Hearing, Ear Discharge, Ear Pain, Tinnitus, Abnormal Hearing, Disequilibrium, Dizziness, Other Nose/Mouth/Throat: absent: As Per HPI, Epistaxis, Nasal Congestion, Nasal Discharge, Nasal Obstruction, Nasal Trauma, Nose Pain, Post Nasal Drip, Sinus Pain, Sinus Pressure, Bleeding Gums, Change in Voice, Dental Pain, Dry Mouth, Dysphagia, Halitosis, Hoarsness, Lip Swelling, Mouth Lesions, Mouth Pain, Odynophagia, Sore Throat, Throat Swelling, Tongue Swelling, Facial Pain, Neck Pain, Neck Mass, Other - Cardiovascular Cardiovascular: absent: As Per HPI, Acrocyanosis, Chest Pain, Chest Pain at Rest , Chest Pain with Activity, Claudication, Diaphoresis, Dyspnea, Dyspnea on Exertion, Edema, Irregular Heart Rhythm, Pain Radiating to Arm/Neck/Jaw, Leg Edema, Leg Ulcers, Lightheadedness, Orthopnea, Palpitations, Paroxysmal Nocturnal Dyspnea, Pedal Edema, Radiating Pain, Rapid Heart Rate, Slow Heart Rate, Syncope, Other - Respiratory Respiratory: As Per HPI - Gastrointestinal Gastrointestinal: absent: As Per HPI, Abdominal Pain, Belching, Bloating, Change in Bowel Habits, Change in Stool Character, Coffee Ground Emesis, Constipation, Cramping, Diarrhea, Dyspepsia, Dysphagia, Early Satiety, Excessive Flatus, Fecal Incontinence, Heartburn, Hematemesis, Hematochezia, Loose Stools, Melena, Nausea, Odynophagia, Temesmus, Vomiting, Other - Genitourinary Genitourinary: absent: As Per HPI, Change in Urinary Stream, Difficulty Urinating, Dysuria, Flank Pain, Hematuria, Pyuria, Nocturia, Urinary Incontinence, Urinary Frequency, Urinary Hesitance, Urinary Urgency, Voiding Freq/Small Amts, Freq UTI, Hx Renal/Bladder Calculi, Hx /Renal Surgery, Bladder Distension, Other - Musculoskeletal Musculoskeletal: absent: As Per HPI, Abnormal Gait, Arthralgias, Atrophy, Back Pain, Deformity, Joint Swelling, Limited Range of Motion, Loss of Height, Muscle Cramps, Muscle Weakness, Myalgias, Neck Pain, Numbness, Radiating Pain into Limb, Stiffness, Tingling, Other - Integumentary Integumentary: absent: As Per HPI, Acne, Alopecia, Bleeding Lesions, Change in Hair, Change in Nails, Change in Pigmentation, Changing Lesions, Dry Skin, Erythema, Furuncle, Hirsutism, Lesions, New Lesions, Non-Healing Lesions, Photosensitivity, Pruritus, Rash, Skin Pain, Skin Ulcer, Sores, Striae, Swelling , Unusual Bruising, Wounds, Jaundice, Other - Neurological Neurological: absent: As Per HPI, Abnormal Gait, Abnormal Hearing, Abnormal Movements, Abnormal Speech, Behavioral Changes, Burning Sensations, Confusion, Convulsions, Disequilibrium, Dizziness, Numbness, Focal Weakness, Frequent Falls , Headaches, Lack of Coordination, Loss of Vision, Memory Loss, Paresthesias, Radicular Pain, Restless Legs, Sensory Deficit, Syncope, Tingling, Tremor, Vertigo, Weakness, Other Visual Disturbances, Other - Psychiatric Psychiatric: absent: As Per HPI, Abnormal Sleep Pattern, Anhedonia, Anxiety, Auditory Hallucinations, Behavioral Changes, Change in Appetite, Change in Libido, Confusion, Depression, Difficulty Concentrating, Hallucinations, Homicidal Ideation, Hopelessness, Irritability, Memory Loss, Mood Swings, Panic Attacks, Paranoia, Suicidal Ideation, Visual Hallucinations, Tactile Hallucinations, Other - Endocrine Endocrine: absent: As Per HPI, Change in Body Appearance, Change in Libido, Cold Intolorance, Deepening of Voice, Excessive Sweating, Fatigue, Flushing, Heat Intolorance, Increase in Ring/Shoe/Hat Size, Palpitations, Polydipsia, Polyphagia, Polyuria, Other - Hematologic/Lymphatic Hematologic: absent: As Per HPI, Easy Bleeding, Easy Bruising, Lymphadenopathy, Other Past Patient History - Infectious Disease Hx of Infectious Diseases: None - Past Medical History & Family History Past Medical History?: Yes - Past Social History Smoking Status: Former Smoker Alcohol: None Drugs: Denies Home Situation {Lives}: Alone - CARDIAC Hx Cardiac Disorders: Yes (Cardiac stent x 2) Hx Hypercholesterolemia: Yes Hx Hypertension: Yes - PULMONARY Hx Respiratory Disorders: Yes Hx Asthma: Yes Hx Chronic Obstructive Pulmonary Disease (COPD): Yes Hx Emphysema: Yes Hx Sleep Apnea: Yes - NEUROLOGICAL Hx Neurological Disorder: Yes Hx Dizziness: Yes - HEENT Hx HEENT Problems: No Hx Cataracts: No (denies) - RENAL Hx Chronic Kidney Disease: No - ENDOCRINE/METABOLIC Hx Endocrine Disorders: No Hx Diabetes Mellitus Type 2: No - HEMATOLOGICAL/ONCOLOGICAL Hx Blood Disorders: Yes Hx Anemia: Yes Hx Human Immunodeficiency Virus (HIV): No - INTEGUMENTARY Hx Dermatological Problems: No - MUSCULOSKELETAL/RHEUMATOLOGICAL Hx Musculoskeletal Disorders: Yes Hx Falls: No Hx Osteoarthritis: Yes Hx Rheumatoid Arthritis: Yes - GASTROINTESTINAL Hx Gastrointestinal Disorders: Yes Hx Gastroesophageal Reflux: Yes - GENITOURINARY/GYNECOLOGICAL Hx Genitourinary Disorders: Yes Hx Prostate Problems: Yes (BPH) - PSYCHIATRIC Hx Psychophysiologic Disorder: Yes Hx Anxiety: Yes Hx Depression: Yes Hx Substance Use: No - SURGICAL HISTORY Hx Surgeries: Yes Hx Coronary Stent: Yes (x2) Hx Splenectomy: Yes - ANESTHESIA Hx Anesthesia: Yes Hx Anesthesia Reactions: No Hx Malignant Hyperthermia: No Meds Allergies/Adverse Reactions: Allergies Allergy/AdvReac Type Severity Reaction Status Date / Time No Known Allergies Allergy Verified 10/09/16 00:46 - Medications Medications: Current Medications Albuterol/Ipratropium (Duoneb 3 Mg/0.5 Mg (3 Ml) Ud) 3 ml INH RQ4 TOM Last Admin: 12/03/16 11:07 Dose: 3 ml Amitriptyline HCl (Elavil) 10 mg PO HS [facility] Last Admin: 12/02/16 21:40 Dose: 10 mg Aspirin (Ecotrin) 81 mg PO DAILY [facility] Last Admin: 12/03/16 08:48 Dose: 81 mg Atorvastatin Calcium (Lipitor) 40 mg PO HS [facility] Last Admin: 12/02/16 21:40 Dose: 40 mg Enoxaparin Sodium (Lovenox) 40 mg SC DAILY [facility] PRN Reason: Protocol Last Admin: 12/03/16 08:49 Dose: Not Given Folic Acid (Folic Acid) 1 mg PO DAILY [facility] Last Admin: 12/03/16 08:46 Dose: 1 mg Hydroxychloroquine Sulfate (Plaquenil) 200 mg PO BID [facility] Last Admin: 12/03/16 08:46 Dose: 200 mg Linezolid (Zyvox 600mg/300ml D5w) 600 mg in 300 mls @ 300 mls/hr IVPB Q12 [facility] Ibuprofen (Motrin Tab) 800 mg PO Q8 PRN PRN Reason: Pain, moderate (4-7) Last Admin: 12/01/16 08:50 Dose: 800 mg Meclizine HCl (Antivert) 25 mg PO TID PRN PRN Reason: Dizziness Last Admin: 12/03/16 08:46 Dose: 25 mg Methotrexate (Methotrexate) 15 mg PO SUN [facility] PRN Reason: Protocol Last Admin: 11/30/16 08:53 Dose: 15 mg Methylprednisolone (Solu-Medrol) 30 mg IVP Q12 [facility] Stop: 12/03/16 14:00 Last Admin: 12/03/16 08:46 Dose: 30 mg Metoprolol Succinate (Toprol Xl) 50 mg PO DAILY [facility] Last Admin: 12/03/16 08:47 Dose: 50 mg Prednisone (Prednisone Tab) 20 mg PO DAILY [facility] Promethazine HCl/Codeine (Phenergan/Codeine Oral Syrup) 10 ml PO Q4H PRN PRN Reason: Cough Last Admin: 12/02/16 21:40 Dose: 10 ml Tamsulosin HCl (Flomax) 0.4 mg PO HS [facility] Last Admin: 12/02/16 21:40 Dose: 0.4 mg Ticagrelor (Brilinta) 90 mg PO BID [facility] Last Admin: 12/03/16 08:45 Dose: 90 mg Vitamin D (Vitamin D 400 Intl Units Tab) 400 intlu PO DAILY [facility] Last Admin: 12/03/16 08:47 Dose: 400 intlu Zolpidem Tartrate (Ambien) 10 mg PO HS [facility] Last Admin: 12/02/16 21:40 Dose: 10 mg Physical Exam - Constitutional Appears: Non-toxic, Chronically Ill - Head Exam Head Exam: ATRAUMATIC, NORMAL INSPECTION, NORMOCEPHALIC - Eye Exam Eye Exam: PERRL. absent: Scleral icterus - ENT Exam ENT Exam: Mucous Membranes Dry, Normal External Ear Exam - Neck Exam Neck exam: Negative for: Lymphadenopathy - Respiratory Exam Respiratory Exam: Decreased Breath Sounds, Prolonged Expiratory Phase, Rhonchi - Cardiovascular Exam Cardiovascular Exam: REGULAR RHYTHM, +S1, +S2 - GI/Abdominal Exam GI & Abdominal Exam: Diminished Bowel Sounds, Soft. absent: Tenderness - Rectal Exam Rectal Exam: Deferred - Exam Exam: NORMAL INSPECTION - Extremities Exam Extremities exam: Positive for: pedal pulses present. Negative for: calf tenderness, pedal edema, tenderness - Back Exam Back exam: absent: CVA tenderness (L), CVA tenderness (R) - Neurological Exam Neurological exam: Alert, CN II-XII Intact, Oriented x3, Reflexes Normal - Psychiatric Exam Psychiatric exam: Normal Mood - Skin Skin Exam: Dry Results - Vital Signs Recent Vital Signs: Last Vital Signs Temp 97.9 F 12/03/16 12:00 Pulse 84 12/03/16 12:00 Resp 18 12/03/16 12:00 BP 127/80 12/03/16 12:00 Pulse Ox 98 12/03/16 12:00 - Labs Result Diagrams: 12/03/16 04:50 12/03/16 04:50 Labs: Laboratory Results - last 24 hr 12/03/16 12/03/16 04:50 04:50 WBC 19.1 H RBC 3.73 L Hgb 10.5 L Hct 32.6 L MCV 87.3 MCH 28.1 MCHC 32.2 L RDW 16.9 H Plt Count 358 Sodium 143 Potassium 4.3 Chloride 110 H Carbon Dioxide 24 Anion Gap 13 BUN 13 Creatinine 0.8 Est GFR ( Amer) > 60 Est GFR (Non-Af Amer) > 60 Random Glucose 143 H Calcium 9.4 Assessment & Plan (1) MRSA pneumonia Status: Acute (2) Sepsis Status: Acute (3) COPD (chronic obstructive pulmonary disease) Status: Acute - Assessment and Plan (Free Text) Assessment: cont Zyvox for now may need 14 daYS RX WITH FOLLOW UP FILMS
[2016-12-03] MEDS: Promethazine/Cod 6.25mg-10mg/5ml Syr UD PO PRN (22:49)
[2016-12-04] MEDS: Albuterol-Ipratrop 3 mg / 0.5 (3 ml) UD INH SCH ×4 (00:37→11:11)
[2016-12-04] MEDS ORDERED: Linezolid 600 mg in D5W 300 ml 600 MG/300 ML BAG IVPB SCH (02:00)
[2016-12-04 05:32] LABS: HEMATOCRIT 33.4 % (35.0-51.0); MEAN CELL VOLUME 87.8 fl (80.0-94.0); MEAN CORPUSCULAR HEMOGLOBIN 28.6 pg (27.0-31.0); MEAN CORPUSCULAR HGB CONC 32.6 g/dL (33.0-37.0); WHITE BLOOD COUNT 14.1 K/uL (4.8-10.8)
[2016-12-04 08:34] VITALS: RESP 18
[2016-12-04] MEDS: Metoprolol Succinate 50 mg XL Tab PO SCH (09:09)
[2016-12-04] MEDS: Cholecalciferol 400 Intl Units Tab PO SCH (09:10)
[2016-12-04] MEDS: Enoxaparin 40 mg Syringe SC SCH (09:12)
[2016-12-04 12:27] VITALS: BP 119/72; PULSE 76; TEMP 98; O2SAT 97
--- NOTE | 2016-12-04 15:39 | CP.PCM.PN ---
Subjective - Date & Time of Evaluation Date of Evaluation: 12/04/16 Time of Evaluation: 10:50 - Subjective Subjective: F/U MRSA PNA minimal cough , no chest congestion , no SOB , no GREEN Objective - Vital Signs/Intake and Output Vital Signs (last 24 hours): Temp Pulse Resp BP Pulse Ox 98.0 F 76 18 119/72 97 12/04/16 12:00 12/04/16 12:00 12/04/16 12:00 12/04/16 12:00 12/04/16 12:00 - Labs Labs: 12/04/16 04:50 12/03/16 04:50 - Constitutional Appears: No Acute Distress, Chronically Ill - Head Exam Head Exam: NORMAL INSPECTION - Eye Exam Eye Exam: PERRL - ENT Exam ENT Exam: Normal Exam - Neck Exam Neck Exam: Normal Inspection - Respiratory Exam Respiratory Exam: Decreased Breath Sounds (at bases), Rhonchi (few at bases) - Cardiovascular Exam Cardiovascular Exam: REGULAR RHYTHM - GI/Abdominal Exam GI & Abdominal Exam: Soft, Normal Bowel Sounds - Extremities Exam Extremities Exam: Tenderness (shoulders, hands, knees.) - Back Exam Back Exam: NORMAL INSPECTION - Neurological Exam Neurological Exam: Alert, Oriented x3. absent: Motor Sensory Deficit - Psychiatric Exam Psychiatric exam: Anxious, Depressed - Skin Skin Exam: Normal Color, Warm Assessment and Plan (1) MRSA pneumonia Status: Acute (2) COPD exacerbation Status: Acute (3) HTN (hypertension) Status: Chronic (4) RA (rheumatoid arthritis) Status: Chronic (5) CAD (coronary artery disease) Status: Chronic (6) Anxiety Status: Acute (7) Depression Status: Acute - Assessment and Plan (Free Text) Plan: Patient improved , discussed with ID , Patient can be discharged on Zyvox po , Duoneb , taper steroids at home , f/u appt my office next Thursday.
== END 2016-12-04 14:07 | disposition home health service (06) | DRG 178 ==
LOC: H.ER 13:42 → H.ERHOLD 15:00 → H.TEL 17:38
PROVIDERS: ADMIT Internal Medicine Pulmonary Disease; ATTEND Internal Medicine Pulmonary Disease
PROC: 3E0234Z Introduction of Serum, Toxoid and Vaccine into Muscle, Percutaneous Approach (ICD-10-PCS; principal; 2016-11-28)
DX: J15.212 Pneumonia due to Methicillin resistant Staphylococcus aureus (principal); J44.0 Chronic obstructive pulmonary disease with (acute) lower respiratory infection; M06.9 Rheumatoid arthritis, unspecified; J44.1 Chronic obstructive pulmonary disease with (acute) exacerbation; I25.10 Atherosclerotic heart disease of native coronary artery without angina pectoris; I10 Essential (primary) hypertension; E78.00 Pure hypercholesterolemia, unspecified; K21.9 Gastro-esophageal reflux disease without esophagitis; F41.9 Anxiety disorder, unspecified; N40.0 Benign prostatic hyperplasia without lower urinary tract symptoms; G47.33 Obstructive sleep apnea (adult) (pediatric); F32.9 Major depressive disorder, single episode, unspecified; Z95.5 Presence of coronary angioplasty implant and graft; Z23 Encounter for immunization; Z79.82 Long term (current) use of aspirin; Z87.891 Personal history of nicotine dependence

== ENCOUNTER 2016-12-06 14:46 | Inpatient (IN) | payer MEDICARE, MEDICAID ==
[2016-12-06 14:46] VITALS: BMI 31.8
--- NOTE | 2016-12-06 15:56 | ED PDOC ---
HPI: CCC, URI, Sore Throat Time Seen by Provider: 12/06/16 15:07 Chief Complaint (Nursing): Cough, Cold, Congestion Chief Complaint (Provider): Cough History Per: Patient History/Exam Limitations: no limitations Onset/Duration Of Symptoms: Days (x1 month) Current Symptoms Are (Timing): Still Present Location Of Pain: None Sick Contacts (Context): None Associated Symptoms: Cough, Sputum (productive sputum), Nausea Ear Symptoms: Bilateral: None Additional Complaint(s): Damien Lopes, a 71 year old male, with a past medical history of asthma, chronic obstructive pulmonary disease, emphysema, coronary artery disease and pneumonia presents to the ED complaining of a cough x1 month. The patient states that he was recently discharged from [place] ED after being admitted for pneumonia. He reports that since he has been home there has been no improvement in his cough and since he has started taking the oral medications he has been having abdominal discomfort. Patient does note some nausea and loss of appetite. Denies vomiting, diarrhea, chest pain. PMD: Kareem [address] Dr. Past Medical History Reviewed: Historical Data, Nursing Documentation, Vital Signs Vital Signs: Last Vital Signs Temp 98.1 F 12/06/16 14:54 Pulse 99 H 12/06/16 14:54 Resp 16 12/06/16 14:54 BP 113/81 12/06/16 14:54 Pulse Ox 96 12/06/16 17:07 - Medical History PMH: Anemia, Anxiety, Arthritis (Osteoarthritis (severe)), Asthma, Benign Prostatic Hyperplasia, CAD, COPD, Depression, Emphysema, HTN, Hypercholesterolemia, Pneumonia, Rheumatoid Arthritis, Sleep Apnea Denies: HIV, Chronic Kidney Disease - Surgical History Surgical History: Coronary Stent (x2) - Family History Family History: States: [place], Hypertension - Home Medications Home Medications: Ambulatory Orders Medication Instructions Recorded Folic Acid 1 mg PO DAILY 01/09/16 Tamsulosin [Flomax] 0.4 mg PO HS 01/09/16 Aspirin [Ecotrin] 81 mg PO DAILY 02/19/16 Atorvastatin [Lipitor] 40 mg PO HS 04/21/16 Methotrexate 15 mg PO SUN 07/16/16 Tiotropium [Spiriva] 18 mcg IH DAILY 07/16/16 Ticagrelor [Brilinta] 90 mg PO BID 08/04/16 Albuterol/Ipratropium [Duoneb 3 3 ml INH Q8H PRN 11/28/16 mg/0.5 mg (3 ml) UD] Amitriptyline [Elavil] 10 mg PO HS 11/28/16 Diclofenac Sodium [Voltaren] 1 appl TOP QID PRN 11/28/16 Fluticasone/Salmeterol 500/50 1 puff IH Q12H 11/28/16 [Advair Diskus 500/50] Hydroxychloroquine Sulfate 200 mg PO BID 11/28/16 [Plaquenil] Ibuprofen [Motrin Tab] 800 mg PO Q6H PRN 11/28/16 Leflunomide [Arava] 20 mg PO DAILY 11/28/16 Meclizine [Antivert] 25 mg PO TID PRN 11/28/16 Metoprolol Succinate [Toprol XL] 50 mg PO DAILY 11/28/16 Promethazine HCl/Codeine 10 mg PO Q4H PRN 11/28/16 [Prometh-Codein 6.25-10 mg/5 ml] Ibuprofen [Motrin Tab] 800 mg PO Q8 PRN tab 12/04/16 Linezolid [Zyvox] 600 mg PO Q12 #28 tab 12/04/16 predniSONE [predniSONE Tab] 20 mg PO DAILY #14 tab 12/04/16 - Allergies Allergies/Adverse Reactions: Allergies Allergy/AdvReac Type Severity Reaction Status Date / Time No Known Allergies Allergy Verified 12/06/16 14:54 Review of Systems ROS Statement: Except As Marked, All Systems Reviewed And Found Negative Constitutional: Positive for: Weakness, Malaise Cardiovascular: Negative for: Chest Pain, Edema Respiratory: Positive for: Cough, Shortness of Breath, SOB with Exertion, Sputum (productive sputum) Gastrointestinal: Positive for: Nausea, Abdominal Pain (pain and discomfort). Negative for: Vomiting - Laboratory Results Result Diagrams: 12/06/16 16:00 12/06/16 16:00 - ECG O2 Sat by Pulse Oximetry: 96 (RA) Pulse Ox Interpretation: Normal Medical Decision Making Medical Decision Makin Initial Impression 71 y/o male presenting with Pneumonia and Abdominal Pain Differential: Sepsis, CHF, Gastritis, Enteritis, Pancreatitis, Electrolyte abnormality. Initial Plan: * Type and Screen * ABG * EKG * B-Type Natriuretic * CMP * Lipase * Magnesium * Phosphorous * Troponin I * Udip * CBC * Partial Thromboplastin * Prothrombin Time * CXR * Blood Culture * Urine Culture * Accucheck * Reevaluation 1541 EKG Performed: * Sinus rhythm 100 bom * Normal QRS * No ST segment abnormalities Scribe Attestation Documented by Precious Beltre acting as a scribe for Velma Yoon MD. Provider Attestation All medical record entries made by the Scribe were at my direction and personally dictated by me. I have reviewed the chart and agree that the record accurately reflects my personal performance of the history, physical exam, medical decision making, and the department course for this patient. I have also personally directed, reviewed, and agree with the discharge instructions and disposition. Disposition - Disposition Forms: [employer] ([place])
[2016-12-06 16:04] LABS: ABG ALLEN TEST YES; ARTERIAL BLOOD GAS PH 7.46 (7.35-7.45); ARTERIAL BLOOD GAS PO2 91 mm/Hg (80-100)
[2016-12-06 16:16] LABS: BASO # 0.2 K/uL (0.0-0.2); BASO % 1.2 % (0.0-2.0); EOS # 0.6 K/uL (0.0-0.7); EOS % 4.3 % (0.0-4.0); HEMATOCRIT 38.7 % (35.0-51.0); LYMPH # 3.9 K/uL (1.0-4.3); LYMPH % 26.3 % (20.0-40.0); MEAN CELL VOLUME 87.7 fl (80.0-94.0); MEAN CORPUSCULAR HEMOGLOBIN 27.7 pg (27.0-31.0); MEAN CORPUSCULAR HGB CONC 31.6 g/dL (33.0-37.0); MEAN PLATELET VOLUME 9.4 fl (7.2-11.7); MONO # 1.2 K/uL (0.0-0.8); MONO % 8.3 % (0.0-10.0); NEUT # 8.9 K/uL (1.8-7.0); NEUT % 59.9 % (50.0-75.0); RED CELL DISTRIBUTION WIDTH 17.1 % (11.5-14.5); WHITE BLOOD COUNT 14.8 K/uL (4.8-10.8)
[2016-12-06 16:32] LABS: ALB/GLOB RATIO 1.2 (1.0-2.1); ALKALINE PHOSPHATASE 69 U/L (38-126); ALT/SGPT 50 U/L (21-72); AST/SGOT 32 U/L (17-59); BILIRUBIN,TOTAL 0.1 mg/dl (0.2-1.3); BLOOD UREA NITROGEN 19 mg/dl (9-20); CARBON DIOXIDE 25 mmol/L (22-30); CHLORIDE 104 mmol/L (98-107); GFR AFRICAN-AMERICAN > 60; GLUCOSE,RANDOM 100 mg/dL (75-110); LIPASE 155 U/L (23-300); MAGNESIUM 1.8 MG/DL (1.6-2.3); PHOSPHOROUS 2.5 mg/dl (2.5-4.5); SODIUM 139 mmol/l (132-148); TOTAL PROTEIN 6.3 G/DL (6.3-8.2)
[2016-12-06 16:37] LABS: POTASSIUM 3.5 MMOL/L (3.6-5.0)
[2016-12-06 16:40] LABS: PARTIAL THROMBOPLASTIN TIME 28.7 Seconds (25.6-37.1)
[2016-12-06] MEDS ORDERED: Albuterol-Ipratrop 3 mg / 0.5 (3 ml) UD INH STA (17:15)
[2016-12-06] MEDS ORDERED: Albuterol-Ipratrop 3 mg / 0.5 (3 ml) UD ONE ×2 (18:27)
[2016-12-06] MEDS ORDERED: Linezolid 600 mg in D5W 300 ml 600 MG/300 ML BAG IVPB STA (19:10)
[2016-12-06] MEDS ORDERED: methylPREDNISolone 40 MG in Sodium Chloride 0.9% 50 ML IV SCH (22:00)
[2016-12-06] MEDS ORDERED: Patient's Own Med (Diclofenac Sodium [Voltaren] 1 APPL) TOP PRN (22:27)
[2016-12-06] MEDS ORDERED: CODEINE PO PRN (22:27)
[2016-12-06] MEDS ORDERED: PROMETHAZINE HCL PO PRN (22:27)
[2016-12-06] MEDS ORDERED: Promethazine/Cod 6.25mg-10mg/5ml Syr UD PO PRN (22:58)
[2016-12-06] MEDS: Albuterol-Ipratrop 3 mg / 0.5 (3 ml) UD INH SCH (22:59)
[2016-12-06] MEDS: MethylPREDNISolone 40 mg Vial IVP SCH (23:10)
[2016-12-07] MEDS: Albuterol-Ipratrop 3 mg / 0.5 (3 ml) UD INH SCH ×5 (04:56→19:09)
[2016-12-07 06:56] LABS: HEMATOCRIT 38.9 % (35.0-51.0); MEAN CELL VOLUME 87.3 fl (80.0-94.0); MEAN CORPUSCULAR HEMOGLOBIN 28.2 pg (27.0-31.0); MEAN CORPUSCULAR HGB CONC 32.3 g/dL (33.0-37.0); RED CELL DISTRIBUTION WIDTH 17.1 % (11.5-14.5); WHITE BLOOD COUNT 17.3 K/uL (4.8-10.8)
[2016-12-07 06:57] LABS: ALB/GLOB RATIO 1.2 (1.0-2.1); ALKALINE PHOSPHATASE 78 U/L (38-126); ALT/SGPT 48 U/L (21-72); AST/SGOT 26 U/L (17-59); BILIRUBIN,TOTAL 0.2 mg/dl (0.2-1.3); BLOOD UREA NITROGEN 19 mg/dl (9-20); CALCIUM 9.2 mg/dL (8.4-10.2); CARBON DIOXIDE 24 mmol/L (22-30); CHLORIDE 104 mmol/L (98-107); GFR AFRICAN-AMERICAN > 60; GLUCOSE,RANDOM 159 mg/dL (75-110); POTASSIUM 3.9 MMOL/L (3.6-5.0); SODIUM 139 mmol/l (132-148); TOTAL PROTEIN 6.5 G/DL (6.3-8.2)
--- NOTE | 2016-12-07 07:23 | RAD ---
HISTORY: sob COMPARISON: No prior. FINDINGS: LUNGS: No active pulmonary disease. PLEURA: No significant pleural effusion identified, no pneumothorax apparent. CARDIOVASCULAR: Normal. OSSEOUS STRUCTURES: No significant abnormalities. VISUALIZED UPPER ABDOMEN: Normal. OTHER FINDINGS: None. IMPRESSION: No active disease.
[2016-12-07] MEDS: Metoprolol Succinate 50 mg XL Tab PO SCH (08:58)
--- NOTE | 2016-12-07 09:00 | CARD ---
APPROVED REPORT EKG Measurement Heart [id number] <Conclusion> Sinus rhythm with premature atrial complexes Possible Left atrial enlargement Borderline ECG
[2016-12-07] MEDS: Linezolid 600 mg in D5W 300 ml 600 MG/300 ML BAG IVPB SCH ×2 (09:33→21:32)
[2016-12-07] MEDS: MethylPREDNISolone 40 mg Vial IVP SCH (09:48)
[2016-12-07] MEDS ORDERED: Alum-Mag Hydrox-Simethicone Susp (30 mL) PO PRN (12:42)
--- NOTE | 2016-12-07 12:55 | CP.PCM.CON ---
History of Present Illness - History of Present Illness History of Present Illness: 71 year old male, with a past medical history of asthma, chronic obstructive pulmonary disease, emphysema, coronary artery disease and pneumonia presents to the ED complaining of a cough x1 month. The patient states that he was recently discharged from [place] ED after being admitted for pneumonia. He reports that since he has been home there has been no improvement in his cough and since he has started taking the oral medications he has been having abdominal discomfort. Patient does note some nausea and loss of appetite. Denies vomiting , diarrhea, chest pain. sputum + MRSA Review of Systems - Constitutional Constitutional: As Per HPI - EENT Eyes: As Per HPI. absent: Blind Spots, Blurred Vision, Change in Vision, Decreased Night Vision, Diplopia, Discharge, Dry Eye, Exophthalmos, Floaters, Irritation, Itchy Eyes, Loss of Peripheral Vision, Pain, Photophobia, Requires Corrective Lenses, Sees Flashes, Spots in Vision, Tunnel Vision, Other Visual Disturbances, Loss of Vision, Other Ears: absent: As Per HPI, Decreased Hearing, Ear Discharge, Ear Pain, Tinnitus, Abnormal Hearing, Disequilibrium, Dizziness, Other Nose/Mouth/Throat: absent: As Per HPI, Epistaxis, Nasal Congestion, Nasal Discharge, Nasal Obstruction, Nasal Trauma, Nose Pain, Post Nasal Drip, Sinus Pain, Sinus Pressure, Bleeding Gums, Change in Voice, Dental Pain, Dry Mouth, Dysphagia, Halitosis, Hoarsness, Lip Swelling, Mouth Lesions, Mouth Pain, Odynophagia, Sore Throat, Throat Swelling, Tongue Swelling, Facial Pain, Neck Pain, Neck Mass, Other - Cardiovascular Cardiovascular: As Per HPI - Respiratory Respiratory: As Per HPI, Cough, Dyspnea. absent: Hemoptysis - Gastrointestinal Gastrointestinal: absent: As Per HPI, Abdominal Pain, Belching, Bloating, Change in Bowel Habits, Change in Stool Character, Coffee Ground Emesis, Constipation, Cramping, Diarrhea, Dyspepsia, Dysphagia, Early Satiety, Excessive Flatus, Fecal Incontinence, Heartburn, Hematemesis, Hematochezia, Loose Stools, Melena, Nausea, Odynophagia, Temesmus, Vomiting, Other - Genitourinary Genitourinary: absent: As Per HPI, Change in Urinary Stream, Difficulty Urinating, Dysuria, Flank Pain, Hematuria, Pyuria, Nocturia, Urinary Incontinence, Urinary Frequency, Urinary Hesitance, Urinary Urgency, Voiding Freq/Small Amts, Freq UTI, Hx Renal/Bladder Calculi, Hx /Renal Surgery, Bladder Distension, Other - Musculoskeletal Musculoskeletal: absent: As Per HPI, Abnormal Gait, Arthralgias, Atrophy, Back Pain, Deformity, Joint Swelling, Limited Range of Motion, Loss of Height, Muscle Cramps, Muscle Weakness, Myalgias, Neck Pain, Numbness, Radiating Pain into Limb, Stiffness, Tingling, Other - Integumentary Integumentary: absent: As Per HPI, Acne, Alopecia, Bleeding Lesions, Change in Hair, Change in Nails, Change in Pigmentation, Changing Lesions, Dry Skin, Erythema, Furuncle, Hirsutism, Lesions, New Lesions, Non-Healing Lesions, Photosensitivity, Pruritus, Rash, Skin Pain, Skin Ulcer, Sores, Striae, Swelling , Unusual Bruising, Wounds, Jaundice, Other - Neurological Neurological: absent: As Per HPI, Abnormal Gait, Abnormal Hearing, Abnormal Movements, Abnormal Speech, Behavioral Changes, Burning Sensations, Confusion, Convulsions, Disequilibrium, Dizziness, Numbness, Focal Weakness, Frequent Falls , Headaches, Lack of Coordination, Loss of Vision, Memory Loss, Paresthesias, Radicular Pain, Restless Legs, Sensory Deficit, Syncope, Tingling, Tremor, Vertigo, Weakness, Other Visual Disturbances, Other - Psychiatric Psychiatric: absent: As Per HPI, Abnormal Sleep Pattern, Anhedonia, Anxiety, Auditory Hallucinations, Behavioral Changes, Change in Appetite, Change in Libido, Confusion, Depression, Difficulty Concentrating, Hallucinations, Homicidal Ideation, Hopelessness, Irritability, Memory Loss, Mood Swings, Panic Attacks, Paranoia, Suicidal Ideation, Visual Hallucinations, Tactile Hallucinations, Other - Endocrine Endocrine: absent: As Per HPI, Change in Body Appearance, Change in Libido, Cold Intolorance, Deepening of Voice, Excessive Sweating, Fatigue, Flushing, Heat Intolorance, Increase in Ring/Shoe/Hat Size, Palpitations, Polydipsia, Polyphagia, Polyuria, Other - Hematologic/Lymphatic Hematologic: absent: As Per HPI, Easy Bleeding, Easy Bruising, Lymphadenopathy, Other Past Patient History - Infectious Disease Hx of Infectious Diseases: None - Past Medical History & Family History Past Medical History?: Yes - Past Social History Smoking Status: Light Smoker < 10 Cigarettes Daily - CARDIAC Hx Cardiac Disorders: Yes Hx Hypercholesterolemia: Yes Hx Hypertension: Yes - PULMONARY Hx Respiratory Disorders: Yes Hx Asthma: Yes Hx Chronic Obstructive Pulmonary Disease (COPD): Yes Hx Emphysema: Yes - NEUROLOGICAL Hx Neurological Disorder: No - HEENT Hx HEENT Problems: No Hx Cataracts: No (denies) - RENAL Hx Chronic Kidney Disease: No - ENDOCRINE/METABOLIC Hx Endocrine Disorders: No - HEMATOLOGICAL/ONCOLOGICAL Hx Blood Disorders: Yes - INTEGUMENTARY Hx Dermatological Problems: No - MUSCULOSKELETAL/RHEUMATOLOGICAL Hx Musculoskeletal Disorders: Yes Hx Falls: No - GASTROINTESTINAL Hx Gastrointestinal Disorders: Yes Hx Gastroesophageal Reflux: Yes - GENITOURINARY/GYNECOLOGICAL Hx Genitourinary Disorders: Yes Hx Prostate Problems: Yes - PSYCHIATRIC Hx Psychophysiologic Disorder: Yes Hx Substance Use: No - SURGICAL HISTORY Hx Surgeries: Yes Hx Coronary Stent: Yes (x2) Other/Comment: Spleen Surgery - 15 yrs. ago - ANESTHESIA Hx Anesthesia: Yes Hx Anesthesia Reactions: No Hx Malignant Hyperthermia: No Has any member of the family had a problem w/ anesthesia?: No Meds Allergies/Adverse Reactions: Allergies Allergy/AdvReac Type Severity Reaction Status Date / Time No Known Allergies Allergy Verified 12/06/16 14:54 - Medications Medications: Current Medications Al Hydrox/Mg Hydrox/Simethicone (Maalox Plus 30 Ml) 30 ml PO Q4 PRN PRN Reason: Indigestion / Heartburn Albuterol/Ipratropium (Duoneb 3 Mg/0.5 Mg (3 Ml) Ud) 3 ml INH RQ4 [facility] Last Admin: 12/07/16 11:05 Dose: 3 ml Amitriptyline HCl (Elavil) 10 mg PO HS [facility] Aspirin (Ecotrin) 81 mg PO DAILY [facility] Last Admin: 12/07/16 08:58 Dose: 81 mg Atorvastatin Calcium (Lipitor) 40 mg PO HS [facility] Folic Acid (Folic Acid) 1 mg PO DAILY [facility] Last Admin: 12/07/16 08:57 Dose: 1 mg Home Med (Diclofenac Sodium [Voltaren]) 1 appl TOP QID PRN PRN Reason: Pain, Mild (1-3) Home Med (Leflunomide [Arava]) 20 mg PO DAILY [facility] Hydroxychloroquine Sulfate (Plaquenil) 200 mg PO BID [facility] Last Admin: 12/07/16 08:55 Dose: 200 mg Linezolid (Zyvox 600mg/300ml D5w) 600 mg in 300 mls @ 300 mls/hr IVPB Q12 [facility] Last Admin: 12/07/16 09:33 Dose: 300 mls/hr Meclizine HCl (Antivert) 25 mg PO TID PRN PRN Reason: Dizziness Methotrexate (Methotrexate) 15 mg PO [place] PRN Reason: Protocol Last Admin: 12/07/16 08:56 Dose: 15 mg Methylprednisolone (Solu-Medrol) 40 mg IVP DAILY [facility] Last Admin: 12/06/16 23:10 Dose: 40 mg Metoprolol Succinate (Toprol Xl) 50 mg PO DAILY [facility] Last Admin: 12/07/16 08:58 Dose: 50 mg Promethazine HCl/Codeine (Phenergan/Codeine Oral Syrup) 5 ml PO Q4 PRN PRN Reason: Cough Tamsulosin HCl (Flomax) 0.4 mg PO HS [facility] Ticagrelor (Brilinta) 90 mg PO BID [facility] Last Admin: 12/07/16 08:55 Dose: 90 mg Physical Exam - Constitutional Appears: Non-toxic, Chronically Ill - Head Exam Head Exam: ATRAUMATIC, NORMAL INSPECTION, NORMOCEPHALIC - Eye Exam Eye Exam: EOMI, PERRL. absent: Scleral icterus - ENT Exam ENT Exam: Mucous Membranes Dry - Neck Exam Neck exam: Negative for: Lymphadenopathy - Respiratory Exam Respiratory Exam: Decreased Breath Sounds, Rhonchi - Cardiovascular Exam Cardiovascular Exam: REGULAR RHYTHM, +S1, +S2 - GI/Abdominal Exam GI & Abdominal Exam: Diminished Bowel Sounds, Distended, Soft. absent: Tenderness - Rectal Exam Rectal Exam: Deferred - Exam Exam: NORMAL INSPECTION - Extremities Exam Extremities exam: Positive for: pedal pulses present. Negative for: calf tenderness, pedal edema, tenderness - Back Exam Back exam: absent: CVA tenderness (L), CVA tenderness (R) - Neurological Exam Neurological exam: Alert, CN II-XII Intact, Oriented x3, Reflexes Normal - Psychiatric Exam Psychiatric exam: Normal Mood - Skin Skin Exam: Dry, Intact Results - Vital Signs Recent Vital Signs: Last Vital Signs Temp 97.6 F 12/07/16 08:23 Pulse 107 H 12/07/16 08:23 Resp 20 12/07/16 08:23 BP 138/87 12/07/16 08:58 Pulse Ox 97 12/07/16 08:23 - Labs Result Diagrams: 12/07/16 05:30 12/07/16 05:30 Labs: Laboratory Results - last 24 hr 12/06/16 12/06/16 12/06/16 15:28 15:41 16:00 WBC RBC Hgb Hct MCV MCH MCHC RDW Plt Count MPV Neut % (Auto) Lymph % (Auto) [place] % (Auto) Eos % (Auto) Baso % (Auto) Neut # Lymph # [place] # Eos # Baso # PT INR APTT pCO2 35 pO2 91 HCO3 26.0 ABG pH 7.46 H ABG Total CO2 26.0 ABG O2 Saturation 99.5 H ABG Base Excess 1.4 Jer[place]ie Test Yes ABG Potassium 3.6 A-a O2 Difference 15.0 Sodium 135.0 139 Chloride 104.0 104 Glucose 104 Lactate 1.2 FiO2 21.0 Potassium 3.5 L Carbon Dioxide 25 Anion Gap 14 BUN 19 Creatinine 1.0 Est GFR ( Amer) > 60 Est GFR (Non-Af Amer) > 60 POC Glucose (mg/dL) 108 Random Glucose 100 Calcium 9.0 Phosphorus 2.5 Magnesium 1.8 Total Bilirubin 0.1 L AST 32 ALT 50 Alkaline Phosphatase 69 Troponin I < 0.0120 NT-Pro-B Natriuret Pep 411 Total Protein 6.3 Albumin 3.4 L Globulin 2.9 Albumin/Globulin Ratio 1.2 Lipase 155 Arterial Blood Potassium 3.6 Blood Type Antibody Screen BBK History Checked 12/06/16 12/06/16 12/06/16 16:00 16:00 16:00 WBC 14.8 H RBC 4.41 Hgb 12.2 Hct 38.7 MCV 87.7 MCH 27.7 MCHC 31.6 L RDW 17.1 H Plt Count 440 H MPV 9.4 Neut % (Auto) 59.9 Lymph % (Auto) 26.3 [place] % (Auto) 8.3 Eos % (Auto) 4.3 H Baso % (Auto) 1.2 Neut # 8.9 H Lymph # 3.9 [place] # 1.2 H Eos # 0.6 Baso # 0.2 PT 12.2 INR 1.1 APTT 28.7 pCO2 pO2 HCO3 ABG pH ABG Total CO2 ABG O2 Saturation ABG Base Excess Jeramie Test ABG Potassium A-a O2 Difference Sodium Chloride Glucose Lactate FiO2 Potassium Carbon Dioxide Anion Gap BUN Creatinine Est GFR ( Amer) Est GFR (Non-Af Amer) POC Glucose (mg/dL) Random Glucose Calcium Phosphorus Magnesium Total Bilirubin AST ALT Alkaline Phosphatase Troponin I NT-Pro-B Natriuret Pep Total Protein Albumin Globulin Albumin/Globulin Ratio Lipase Arterial Blood Potassium Blood Type O POSITIVE Antibody Screen Negative BBK History Checked Patient has bt 12/07/16 12/07/16 05:30 05:30 WBC 17.3 H RBC 4.46 Hgb 12.6 Hct 38.9 MCV 87.3 MCH 28.2 MCHC 32.3 L RDW 17.1 H Plt Count 452 H MPV Neut % (Auto) Lymph % (Auto) [place] % (Auto) Eos % (Auto) Baso % (Auto) Neut # Lymph # [place] # Eos # Baso # PT INR APTT pCO2 pO2 HCO3 ABG pH ABG Total CO2 ABG O2 Saturation ABG Base Excess Jeramie Test ABG Potassium A-a O2 Difference Sodium 139 Chloride 104 Glucose Lactate FiO2 Potassium 3.9 Carbon Dioxide 24 Anion Gap 15 BUN 19 Creatinine 0.9 Est GFR ( Amer) > 60 Est GFR (Non-Af Amer) > 60 POC Glucose (mg/dL) Random Glucose 159 H Calcium 9.2 Phosphorus Magnesium Total Bilirubin 0.2 AST 26 ALT 48 Alkaline Phosphatase 78 Troponin I NT-Pro-B Natriuret Pep Total Protein 6.5 Albumin 3.5 Globulin 2.9 Albumin/Globulin Ratio 1.2 Lipase Arterial Blood Potassium Blood Type Antibody Screen BBK History Checked Assessment & Plan (1) MRSA (methicillin resistant staph aureus) culture positive Status: Acute (2) MRSA (methicillin resistant staph aureus) culture positive Status: Acute (3) COPD (chronic obstructive pulmonary disease) Status: Acute (4) Chest pain Status: Acute - Assessment and Plan (Free Text) Assessment: cont iv rx with zyvox as ordered cont bronchodilators
--- NOTE | 2016-12-07 14:24 | CP.PCM.HP ---
History of Present Illness - History of Present Illness History of Present Illness: CC: Cough. 71 y/o M, admitted to [facility] due to increased intermittent productive cough with yellowish phlegms associated to chest congestion, onset day [employer] with no relief. Pt was admitted to [facility] last week on 11/28/16 for PNA and Sepsis, discharged on 12/04/16 with Duoneb and Zivox po with no relief, Pt returned to hospital with worsening cough and after evaluation was admitted to Med-Surg. Worsening symptoms: Abdominal discomfort associated to nausea, loss of appetite , weakness. Aggravated Factor: Current smoker. Pt denied: Fever, chills, vomiting, diarrhea, abdominal pain but discomfort, CP , palpitations, sick contact. CXR= No active disease. EKG= Sinus rhythm with PAC. Present on Admission - Present on Admission Any Indicators Present on Admission: No Review of Systems - Constitutional Constitutional: Other (Loss appetite) - EENT Eyes: Requires Corrective Lenses Ears: Other (negative) Nose/Mouth/Throat: Other (negative) - Cardiovascular Cardiovascular: Other (negative) - Respiratory Respiratory: Cough, Chest Congestion, Change in Mucous Color - Gastrointestinal Gastrointestinal: Nausea, Other (abdominal disconfort) - Genitourinary Genitourinary: Other (negative) - Musculoskeletal Musculoskeletal: Arthralgias - Integumentary Integumentary: Other (negative) - Neurological Neurological: Dizziness - Psychiatric Psychiatric: Anxiety, Depression - Endocrine Endocrine: Other (negative) - Hematologic/Lymphatic Hematologic: Other (negative) Past Patient History - Infectious Disease Hx of Infectious Diseases: None - Past Medical History & Family History Past Medical History?: Yes Pertinent Family History: AL, HTN - Past Social History Smoking Status: Light Smoker < 10 Cigarettes Daily Alcohol: None Drugs: Denies Home Situation {Lives}: Alone - CARDIAC Hx Cardiac Disorders: Yes Hx Hypercholesterolemia: Yes Hx Hypertension: Yes - PULMONARY Hx Respiratory Disorders: Yes Hx Asthma: Yes Hx Chronic Obstructive Pulmonary Disease (COPD): Yes Hx Emphysema: Yes - NEUROLOGICAL Hx Neurological Disorder: No - HEENT Hx HEENT Problems: No Hx Cataracts: No (denies) - RENAL Hx Chronic Kidney Disease: No - ENDOCRINE/METABOLIC Hx Endocrine Disorders: No - HEMATOLOGICAL/ONCOLOGICAL Hx Blood Disorders: Yes - INTEGUMENTARY Hx Dermatological Problems: No - MUSCULOSKELETAL/RHEUMATOLOGICAL Hx Musculoskeletal Disorders: Yes Hx Falls: No - GASTROINTESTINAL Hx Gastrointestinal Disorders: Yes Hx Gastroesophageal Reflux: Yes - GENITOURINARY/GYNECOLOGICAL Hx Genitourinary Disorders: Yes Hx Prostate Problems: Yes - PSYCHIATRIC Hx Psychophysiologic Disorder: Yes Hx Substance Use: No - SURGICAL HISTORY Hx Surgeries: Yes Hx Coronary Stent: Yes (x2) Other/Comment: Spleen Surgery - 15 yrs. ago - ANESTHESIA Hx Anesthesia: Yes Hx Anesthesia Reactions: No Hx Malignant Hyperthermia: No Has any member of the family had a problem w/ anesthesia?: No Meds Allergies/Adverse Reactions: Allergies Allergy/AdvReac Type Severity Reaction Status Date / Time No Known Allergies Allergy Verified 12/06/16 14:54 Physical Exam - Constitutional Appears: No Acute Distress, Chronically Ill - Head Exam Head Exam: NORMAL INSPECTION - Eye Exam Eye Exam: PERRL - ENT Exam ENT Exam: Normal Exam - Neck Exam Neck exam: Positive for: Normal Inspection - Respiratory Exam Respiratory Exam: Decreased Breath Sounds (at bases), Rhonchi (scattered b/l) - Cardiovascular Exam Cardiovascular Exam: REGULAR RHYTHM - GI/Abdominal Exam GI & Abdominal Exam: Normal Bowel Sounds, Soft - Extremities Exam Extremities exam: Positive for: tenderness (Shoulders, hands, knees) - Back Exam Back exam: NORMAL INSPECTION - Neurological Exam Neurological exam: Alert, Oriented x3 Additional comments: No motor sensory deficit - Psychiatric Exam Psychiatric exam: Anxious, Depressed - Skin Skin Exam: Normal Color, Warm Results - Vital Signs Recent Vital Signs: Last Vital Signs Temp 97.6 F 12/07/16 08:23 Pulse 107 H 12/07/16 08:23 Resp 20 12/07/16 08:23 BP 138/87 12/07/16 08:58 Pulse Ox 97 12/07/16 08:23 reviewed William - Labs Result Diagrams: 12/07/16 05:30 12/07/16 05:30 Labs: Laboratory Results - last 24 hr 12/06/16 12/06/16 12/06/16 15:28 15:41 16:00 WBC RBC Hgb Hct MCV MCH MCHC RDW Plt Count MPV Neut % (Auto) Lymph % (Auto) [place] % (Auto) Eos % (Auto) Baso % (Auto) Neut # Lymph # [place] # Eos # Baso # PT INR APTT pCO2 35 pO2 91 HCO3 26.0 ABG pH 7.46 H ABG Total CO2 26.0 ABG O2 Saturation 99.5 H ABG Base Excess 1.4 [place]ie Test Yes ABG Potassium 3.6 A-a O2 Difference 15.0 Sodium 135.0 139 Chloride 104.0 104 Glucose 104 Lactate 1.2 FiO2 21.0 Potassium 3.5 L Carbon Dioxide 25 Anion Gap 14 BUN 19 Creatinine 1.0 Est GFR ( Amer) > 60 Est GFR (Non-Af Amer) > 60 POC Glucose (mg/dL) 108 Random Glucose 100 Calcium 9.0 Phosphorus 2.5 Magnesium 1.8 Total Bilirubin 0.1 L AST 32 ALT 50 Alkaline Phosphatase 69 Troponin I < 0.0120 NT-Pro-B Natriuret Pep 411 Total Protein 6.3 Albumin 3.4 L Globulin 2.9 Albumin/Globulin Ratio 1.2 Lipase 155 Arterial Blood Potassium 3.6 Blood Type Antibody Screen BBK History Checked 12/06/16 12/06/16 12/06/16 16:00 16:00 16:00 WBC 14.8 H RBC 4.41 Hgb 12.2 Hct 38.7 MCV 87.7 MCH 27.7 MCHC 31.6 L RDW 17.1 H Plt Count 440 H MPV 9.4 Neut % (Auto) 59.9 Lymph % (Auto) 26.3 [place] % (Auto) 8.3 Eos % (Auto) 4.3 H Baso % (Auto) 1.2 Neut # 8.9 H Lymph # 3.9 [place] # 1.2 H Eos # 0.6 Baso # 0.2 PT 12.2 INR 1.1 APTT 28.7 pCO2 pO2 HCO3 ABG pH ABG Total CO2 ABG O2 Saturation ABG Base Excess Jeramie Test ABG Potassium A-a O2 Difference Sodium Chloride Glucose Lactate FiO2 Potassium Carbon Dioxide Anion Gap BUN Creatinine Est GFR ( Amer) Est GFR (Non-Af Amer) POC Glucose (mg/dL) Random Glucose Calcium Phosphorus Magnesium Total Bilirubin AST ALT Alkaline Phosphatase Troponin I NT-Pro-B Natriuret Pep Total Protein Albumin Globulin Albumin/Globulin Ratio Lipase Arterial Blood Potassium Blood Type O POSITIVE Antibody Screen Negative BBK History Checked Patient has bt 12/07/16 12/07/16 05:30 05:30 WBC 17.3 H RBC 4.46 Hgb 12.6 Hct 38.9 MCV 87.3 MCH 28.2 MCHC 32.3 L RDW 17.1 H Plt Count 452 H MPV Neut % (Auto) Lymph % (Auto) [place] % (Auto) Eos % (Auto) Baso % (Auto) Neut # Lymph # [place] # Eos # Baso # PT INR APTT pCO2 pO2 HCO3 ABG pH ABG Total CO2 ABG O2 Saturation ABG Base Excess Jeramie Test ABG Potassium A-a O2 Difference Sodium 139 Chloride 104 Glucose Lactate FiO2 Potassium 3.9 Carbon Dioxide 24 Anion Gap 15 BUN 19 Creatinine 0.9 Est GFR ( Amer) > 60 Est GFR (Non-Af Amer) > 60 POC Glucose (mg/dL) Random Glucose 159 H Calcium 9.2 Phosphorus Magnesium Total Bilirubin 0.2 AST 26 ALT 48 Alkaline Phosphatase 78 Troponin I NT-Pro-B Natriuret Pep Total Protein 6.5 Albumin 3.5 Globulin 2.9 Albumin/Globulin Ratio 1.2 Lipase Arterial Blood Potassium Blood Type Antibody Screen BBK History Checked reviewed J.P. - Imaging and Cardiology Chest x-ray Status: Report reviewed by me (J.P.) Assessment & Plan (1) Methicillin resistant Staphylococcus aureus pneumonia Status: Acute Priority: High (2) COPD exacerbation Status: Acute Priority: High (3) CAD (coronary artery disease) Status: Chronic Priority: Medium (4) RA (rheumatoid arthritis) Status: Chronic Priority: Medium (5) HTN (hypertension) Status: Chronic Priority: Low (6) Anxiety Status: Acute Priority: Medium (7) Depression Status: Acute Priority: Medium - Assessment and Plan (Free Text) Plan: F/U Blood suzette C-S, U C-S, Continue Zyvox, Solumedrol, Duoneb, Phenergan with Co and rest of Tx. PT eval, ID consult appreciated. - Date & Time Date: 12/07/16 Time: 11:20
[2016-12-07 16:21] VITALS: PULSE 68
[2016-12-07] MEDS: Pantoprazole 40 mg EC Tab PO SCH (16:24)
[2016-12-07] MEDS: Alum-Mag Hydrox-Simethicone Susp (30 mL) PO SCH (16:25)
[2016-12-08] MEDS: Albuterol-Ipratrop 3 mg / 0.5 (3 ml) UD INH SCH ×4 (00:16→11:01)
[2016-12-08 07:59] VITALS: BP 104/66; RESP 19; TEMP 98; O2SAT 97
[2016-12-08] MEDS: Alum-Mag Hydrox-Simethicone Susp (30 mL) PO SCH ×2 (08:15→12:10)
[2016-12-08] MEDS: Pantoprazole 40 mg EC Tab PO SCH (08:17)
[2016-12-08] MEDS: Metoprolol Succinate 50 mg XL Tab PO SCH (08:17)
[2016-12-08] MEDS: MethylPREDNISolone 40 mg Vial IVP SCH (08:21)
[2016-12-08] MEDS: Linezolid 600 mg in D5W 300 ml 600 MG/300 ML BAG IVPB SCH (09:00)
[2016-12-08 10:29] LABS: HEMATOCRIT 34.2 % (35.0-51.0); MEAN CORPUSCULAR HEMOGLOBIN 28.6 pg (27.0-31.0); MEAN CORPUSCULAR HGB CONC 33.6 g/dL (33.0-37.0); RED CELL DISTRIBUTION WIDTH 17.4 % (11.5-14.5); WHITE BLOOD COUNT 25.7 K/uL (4.8-10.8)
[2016-12-08 10:37] LABS: BLOOD UREA NITROGEN 21 mg/dl (9-20); CALCIUM 8.9 mg/dL (8.4-10.2); CARBON DIOXIDE 27 mmol/L (22-30); CHLORIDE 105 mmol/L (98-107); GFR AFRICAN-AMERICAN > 60; GLUCOSE,RANDOM 182 mg/dL (75-110); POTASSIUM 3.8 MMOL/L (3.6-5.0); SODIUM 139 mmol/l (132-148)
[2016-12-08] MEDS ORDERED: Sodium Chloride 3% for Inhalation 4 ML VIAL.NEB IH PRN (11:57)
--- NOTE | 2016-12-08 11:58 | CP.PCM.PN ---
Subjective - Date & Time of Evaluation Date of Evaluation: 12/08/16 Time of Evaluation: 09:00 - Subjective Subjective: repeat sputum c/s sent wbc noted Objective - Vital Signs/Intake and Output Vital Signs (last 24 hours): Temp Pulse Resp BP Pulse Ox 98.0 F 68 19 104/66 97 12/08/16 07:58 12/08/16 08:17 12/08/16 07:58 12/08/16 08:17 12/08/16 07:58 - Medications Medications: Current Medications Al Hydrox/Mg Hydrox/Simethicone (Maalox Plus 30 Ml) 30 ml PO TID [facility] Last Admin: 12/08/16 08:15 Dose: 30 ml Albuterol/Ipratropium (Duoneb 3 Mg/0.5 Mg (3 Ml) Ud) 3 ml INH RQ4 [facility] Last Admin: 12/08/16 11:01 Dose: 3 ml Amitriptyline HCl (Elavil) 10 mg PO HS [facility] Last Admin: 12/07/16 21:32 Dose: 10 mg Aspirin (Ecotrin) 81 mg PO DAILY [facility] Last Admin: 12/08/16 08:16 Dose: 81 mg Atorvastatin Calcium (Lipitor) 40 mg PO HS [facility] Last Admin: 12/07/16 21:31 Dose: 40 mg Folic Acid (Folic Acid) 1 mg PO DAILY [facility] Last Admin: 12/08/16 08:16 Dose: 1 mg Home Med (Diclofenac Sodium [Voltaren]) 1 appl TOP QID PRN PRN Reason: Pain, Mild (1-3) Home Med (Leflunomide [Arava]) 20 mg PO DAILY [facility] Hydroxychloroquine Sulfate (Plaquenil) 200 mg PO BID [facility] Last Admin: 12/08/16 08:17 Dose: 200 mg Linezolid (Zyvox 600mg/300ml D5w) 600 mg in 300 mls @ 300 mls/hr IVPB Q12 [facility] Last Admin: 12/08/16 09:00 Dose: 300 mls/hr Meclizine HCl (Antivert) 25 mg PO TID PRN PRN Reason: Dizziness Methotrexate (Methotrexate) 15 mg PO SUN [facility] PRN Reason: Protocol Last Admin: 12/07/16 08:56 Dose: 15 mg Methylprednisolone (Solu-Medrol) 40 mg IVP DAILY [facility] Last Admin: 12/08/16 08:21 Dose: 40 mg Metoprolol Succinate (Toprol Xl) 50 mg PO DAILY [facility] Last Admin: 12/08/16 08:17 Dose: 50 mg Pantoprazole Sodium (Protonix Ec Tab) 40 mg PO DAILY [facility] Last Admin: 12/08/16 08:17 Dose: 40 mg Promethazine HCl/Codeine (Phenergan/Codeine Oral Syrup) 5 ml PO Q4 PRN PRN Reason: Cough Tamsulosin HCl (Flomax) 0.4 mg PO HS [facility] Last Admin: 12/07/16 21:32 Dose: 0.4 mg Ticagrelor (Brilinta) 90 mg PO BID [facility] Last Admin: 12/08/16 08:16 Dose: 90 mg - Labs Labs: 12/08/16 10:00 12/08/16 10:00 PT 12.2 Seconds (9.8-13.1) 12/06/16 16:00 INR 1.1 (0.9-1.2) 12/06/16 16:00 APTT 28.7 Seconds (25.6-37.1) 12/06/16 16:00 Assessment and Plan (1) MRSA (methicillin resistant staph aureus) culture positive Status: Acute (2) MRSA (methicillin resistant staph aureus) culture positive Status: Acute (3) COPD (chronic obstructive pulmonary disease) Status: Deleted (4) Chest pain Status: Acute
--- NOTE | 2016-12-08 12:46 | IP.NPCORE ---
Pneumonia Progress Notes - Oxygenation Assessment (REQUIRED) Documented 02: Yes O2 Saturation: 97 Oxygen Delivery Method: Room Air Documented P02: Yes - Blood Cultures (REQUIRED) Culture drawn: Yes - Initial Antibiotic Initial Antibiotic given within Four Hours:: Yes - Appropriate Antibiotic Appropriate Antibiotic within 24 hours of Admission:: Yes - Pneumonia Vaccine Pneumonia Vaccine: Yes (History) COPD Progress Note - COPD Progress Note Spirometry Assessment Completed:: No Plan to assess at outpatient follow up: Yes Symptoms:: Increase in Dyspnea, Cough Initial CXR:: yes Date:: 12/06/16 Oxygen Saturation/Pulse Oximetry:: 97 ABG:: yes Date:: 12/06/16 Nebulizers Q2-4 hrs:: Duonebs/Albuterol Therapy Antibiotics (Name/Dose/Frequency):: Zyvox Systemic Steroids w/ methylprednisolone Name/Dose/Frequency:: Yes Oxygen Delivery Method: Room Air
--- NOTE | 2016-12-08 13:30 | CP.PCM.PN ---
Subjective - Date & Time of Evaluation Date of Evaluation: 12/08/16 Time of Evaluation: 12:30 - Subjective Subjective: F/U PNA Objective - Vital Signs/Intake and Output Vital Signs (last 24 hours): Temp Pulse Resp BP Pulse Ox 98.0 F 68 19 104/66 97 12/08/16 07:58 12/08/16 08:17 12/08/16 07:58 12/08/16 08:17 12/08/16 07:58 - Medications Medications: Current Medications Al Hydrox/Mg Hydrox/Simethicone (Maalox Plus 30 Ml) 30 ml PO TID [facility] Last Admin: 12/08/16 12:10 Dose: 30 ml Albuterol/Ipratropium (Duoneb 3 Mg/0.5 Mg (3 Ml) Ud) 3 ml INH RQ4 [facility] Last Admin: 12/08/16 11:01 Dose: 3 ml Amitriptyline HCl (Elavil) 10 mg PO HS [facility] [place] Last Admin: 12/07/16 21:32 Dose: 10 mg Aspirin (Ecotrin) 81 mg PO DAILY [facility] [place] Last Admin: 12/08/16 08:16 Dose: 81 mg Atorvastatin Calcium (Lipitor) 40 mg PO HS [facility] [place] Last Admin: 12/07/16 21:31 Dose: 40 mg Folic Acid (Folic Acid) 1 mg PO DAILY [facility] [place] Last Admin: 12/08/16 08:16 Dose: 1 mg Home Med (Diclofenac Sodium [Voltaren]) 1 appl TOP QID PRN PRN Reason: Pain, Mild (1-3) Home Med (Leflunomide [Arava]) 20 mg PO DAILY [facility] Hydroxychloroquine Sulfate (Plaquenil) 200 mg PO BID [facility] [place] Last Admin: 12/08/16 08:17 Dose: 200 mg Linezolid (Zyvox 600mg/300ml D5w) 600 mg in 300 mls @ 300 mls/hr IVPB Q12 [facility] [place] Last Admin: 12/08/16 09:00 Dose: 300 mls/hr Meclizine HCl (Antivert) 25 mg PO TID PRN PRN Reason: Dizziness Methotrexate (Methotrexate) 15 mg PO SUN [facility] [place] PRN Reason: Protocol Last Admin: 12/07/16 08:56 Dose: 15 mg Methylprednisolone (Solu-Medrol) 40 mg IVP DAILY [facility] [place] Last Admin: 12/08/16 08:21 Dose: 40 mg Metoprolol Succinate (Toprol Xl) 50 mg PO DAILY [facility] [place] Last Admin: 12/08/16 08:17 Dose: 50 mg Pantoprazole Sodium (Protonix Ec Tab) 40 mg PO DAILY [facility] [place] Last Admin: 12/08/16 08:17 Dose: 40 mg Promethazine HCl/Codeine (Phenergan/Codeine Oral Syrup) 5 ml PO Q4 PRN PRN Reason: Cough Tamsulosin HCl (Flomax) 0.4 mg PO HS [facility] [place] Last Admin: 12/07/16 21:32 Dose: 0.4 mg Ticagrelor (Brilinta) 90 mg PO BID [facility] Last Admin: 12/08/16 08:16 Dose: 90 mg - Labs Labs: 12/08/16 10:00 12/08/16 10:00 PT 12.2 Seconds (9.8-13.1) 12/06/16 16:00 INR 1.1 (0.9-1.2) 12/06/16 16:00 APTT 28.7 Seconds (25.6-37.1) 12/06/16 16:00 - Constitutional Appears: No Acute Distress, Chronically Ill - Head Exam Head Exam: NORMAL INSPECTION - Eye Exam Eye Exam: PERRL - ENT Exam ENT Exam: Normal Exam - Neck Exam Neck Exam: Normal Inspection - Respiratory Exam Respiratory Exam: Decreased Breath Sounds (at bases), Rhonchi (few scattered) - Cardiovascular Exam Cardiovascular Exam: REGULAR RHYTHM - GI/Abdominal Exam GI & Abdominal Exam: Soft, Normal Bowel Sounds - Extremities Exam Extremities Exam: Tenderness (shoulders, hands, knees.) - Back Exam Back Exam: NORMAL INSPECTION - Neurological Exam Neurological Exam: Alert, Oriented x3. absent: Motor Sensory Deficit - Psychiatric Exam Psychiatric exam: Anxious, Depressed - Skin Skin Exam: Normal Color, Warm Assessment and Plan (1) Methicillin resistant Staphylococcus aureus pneumonia Status: Acute (2) COPD exacerbation Status: Acute (3) CAD (coronary artery disease) Status: Chronic (4) RA (rheumatoid arthritis) Status: Chronic (5) HTN (hypertension) Status: Chronic (6) Anxiety Status: Acute (7) Depression Status: Acute
== END 2016-12-08 14:52 | DRG 178 ==
LOC: H.ER 14:46 → H.ERHOLD 17:18 → H.MEDSURG1 20:18
PROVIDERS: ADMIT Internal Medicine Pulmonary Disease; ATTEND Internal Medicine Pulmonary Disease
PROC: 3E0F73Z Introduction of Anti-inflammatory into Respiratory Tract, Via Natural or Artificial Opening (ICD-10-PCS; principal; 2016-12-06)
DX: J15.212 Pneumonia due to Methicillin resistant Staphylococcus aureus (principal); J44.0 Chronic obstructive pulmonary disease with (acute) lower respiratory infection; J44.1 Chronic obstructive pulmonary disease with (acute) exacerbation; I25.10 Atherosclerotic heart disease of native coronary artery without angina pectoris; M06.9 Rheumatoid arthritis, unspecified; I10 Essential (primary) hypertension; D64.9 Anemia, unspecified; K21.9 Gastro-esophageal reflux disease without esophagitis; E78.00 Pure hypercholesterolemia, unspecified; F41.9 Anxiety disorder, unspecified; F32.9 Major depressive disorder, single episode, unspecified; G47.30 Sleep apnea, unspecified; N40.0 Benign prostatic hyperplasia without lower urinary tract symptoms; M19.90 Unspecified osteoarthritis, unspecified site; F17.210 Nicotine dependence, cigarettes, uncomplicated; Z95.5 Presence of coronary angioplasty implant and graft; Z79.82 Long term (current) use of aspirin; Z87.01 Personal history of pneumonia (recurrent)

== ENCOUNTER 2016-12-08 12:48 | Inpatient (IN) | payer OTHER, MEDICAID ==
[2016-12-08 14:51] VITALS: BMI 31.3
[2016-12-08] MEDS ORDERED: Patient's Own Med (Diclofenac Sodium [Voltaren] 1 APPL) TOP PRN (15:04)
[2016-12-08] MEDS ORDERED: Promethazine/Cod 6.25mg-10mg/5ml Syr UD PO PRN (15:04)
[2016-12-08 15:31] VITALS: RESP 20
[2016-12-08] MEDS: Albuterol-Ipratrop 3 mg / 0.5 (3 ml) UD INH SCH ×2 (17:14→19:12)
[2016-12-08] MEDS ORDERED: Patient's Own Med (Linezolid 600 Mg In D5w 300 Ml [Zyvox 600mg/300ml D5w] 600 MG) IVPB SCH (21:00)
[2016-12-08] MEDS: Linezolid 600 mg in D5W 300 ml 600 MG/300 ML BAG IVPB SCH (22:40)
[2016-12-09] MEDS: Albuterol-Ipratrop 3 mg / 0.5 (3 ml) UD INH SCH ×6 (00:52→19:51)
[2016-12-09] MEDS: Pantoprazole 40 mg EC Tab PO SCH (08:50)
[2016-12-09] MEDS: Metoprolol Succinate 50 mg XL Tab PO SCH (08:52)
[2016-12-09] MEDS: Linezolid 600 mg in D5W 300 ml 600 MG/300 ML BAG IVPB SCH ×2 (08:53→21:21)
[2016-12-09] MEDS ORDERED: MethylPREDNISolone 40 mg Vial IV SCH (09:00)
--- NOTE | 2016-12-09 14:03 | CP.PCM.HP ---
History of Present Illness - History of Present Illness History of Present Illness: 71 y/o M, admitted on 12/06/16 to [facility], [facility] for COPD Exacerbation, PNA, on 12/08/16 medical condition improved and Pt was transferred to TCU unit to continue abx coverage, OT and PT. Pt denied: Fever, chills, n/v/d, abdominal pain, CP, palpitations. Present on Admission - Present on Admission Any Indicators Present on Admission: No Review of Systems - Constitutional Constitutional: Other (negative) - EENT Eyes: Requires Corrective Lenses Ears: Other (negative) Nose/Mouth/Throat: Other (negative) - Cardiovascular Cardiovascular: Other (negative) - Respiratory Respiratory: Cough, Chest Congestion, Change in Mucous Color - Gastrointestinal Gastrointestinal: Other (negative) - Genitourinary Genitourinary: Other (negative) - Musculoskeletal Musculoskeletal: Arthralgias - Integumentary Integumentary: Other (negative) - Neurological Neurological: Dizziness - Psychiatric Psychiatric: Anxiety, Depression - Endocrine Endocrine: Other (negative) - Hematologic/Lymphatic Hematologic: Other (negative) Past Patient History - Infectious Disease Hx of Infectious Diseases: None - Past Medical History & Family History Past Medical History?: Yes Pertinent Family History: HTN [place] - Past Social History Smoking Status: Light Smoker < 10 Cigarettes Daily Alcohol: None Drugs: Denies - CARDIAC Hx Cardiac Disorders: Yes Hx Hypercholesterolemia: Yes Hx Hypertension: Yes Other/Comment: Coronary stent x2 - PULMONARY Hx Respiratory Disorders: Yes Hx Asthma: Yes Hx Chronic Obstructive Pulmonary Disease (COPD): Yes Hx Emphysema: Yes Hx Sleep Apnea: Yes - NEUROLOGICAL Hx Neurological Disorder: No - HEENT Hx HEENT Problems: No Hx Cataracts: No (denies) - RENAL Hx Chronic Kidney Disease: No - ENDOCRINE/METABOLIC Hx Endocrine Disorders: No - HEMATOLOGICAL/ONCOLOGICAL Hx Blood Disorders: Yes Hx Anemia: Yes - INTEGUMENTARY Hx Dermatological Problems: No - MUSCULOSKELETAL/RHEUMATOLOGICAL Hx Musculoskeletal Disorders: Yes Hx Falls: Yes Hx Osteoporosis: Yes Hx Rheumatoid Arthritis: Yes - GASTROINTESTINAL Hx Gastrointestinal Disorders: Yes Hx Gastroesophageal Reflux: Yes - GENITOURINARY/GYNECOLOGICAL Hx Genitourinary Disorders: Yes Hx Prostate Problems: Yes - PSYCHIATRIC Hx Psychophysiologic Disorder: Yes Hx Anxiety: Yes Hx Depression: Yes Hx Substance Use: No - SURGICAL HISTORY Hx Surgeries: Yes Hx Coronary Stent: Yes (x2) Hx Splenectomy: Yes Other/Comment: Spleen Surgery - 15 yrs. ago - ANESTHESIA Hx Anesthesia: Yes Hx Anesthesia Reactions: No Hx Malignant Hyperthermia: No Meds Allergies/Adverse Reactions: Allergies Allergy/AdvReac Type Severity Reaction Status Date / Time No Known Allergies Allergy Verified 12/08/16 14:51 Physical Exam - Constitutional Appears: No Acute Distress, Chronically Ill - Head Exam Head Exam: NORMAL INSPECTION - Eye Exam Eye Exam: PERRL - ENT Exam ENT Exam: Normal Exam - Neck Exam Neck exam: Positive for: Normal Inspection - Respiratory Exam Respiratory Exam: Decreased Breath Sounds (b/l) - Cardiovascular Exam Cardiovascular Exam: REGULAR RHYTHM - GI/Abdominal Exam GI & Abdominal Exam: Normal Bowel Sounds, Soft - Extremities Exam Extremities exam: Positive for: tenderness (Shoulders, hands, knees.) - Back Exam Back exam: NORMAL INSPECTION - Neurological Exam Neurological exam: Alert, Oriented x3 - Psychiatric Exam Psychiatric exam: Anxious, Depressed - Skin Skin Exam: Normal Color, Warm Results - Vital Signs Recent Vital Signs: Last Vital Signs Temp 97.3 F L 12/09/16 08:47 Pulse 68 12/09/16 08:52 Resp 20 12/09/16 08:47 BP 128/75 12/09/16 08:52 Pulse Ox 97 12/09/16 08:47 reviewed J.P. - Labs Labs: Laboratory Results - last 24 hr 12/08/16 12/08/16 12/09/16 15:54 20:41 05:53 POC Glucose (mg/dL) 144 H 123 H 134 H 12/09/16 11:09 POC Glucose (mg/dL) 145 H reviewed J.P. Assessment & Plan (1) MRSA pneumonia Status: Acute (2) COPD exacerbation Status: Acute Priority: High (3) RA (rheumatoid arthritis) Status: Chronic Priority: Medium (4) HTN (hypertension) Status: Chronic Priority: Low (5) CAD (coronary artery disease) Status: Chronic Priority: Medium (6) Depression Status: Acute Priority: Medium (7) Anxiety Status: Acute Priority: Medium - Assessment and Plan (Free Text) Plan: Continue Zyvox IV, Solumedrol, Duoneb, Phenergan with Co, Brilinta and rest of Tx, Pt is functional not requiring PT. - Date & Time Date: 12/09/16 Time: 12:30
[2016-12-10] MEDS: Albuterol-Ipratrop 3 mg / 0.5 (3 ml) UD INH SCH ×6 (00:46→19:12)
[2016-12-10] MEDS: Pantoprazole 40 mg EC Tab PO SCH (09:00)
[2016-12-10] MEDS ORDERED: methylPREDNISolone 30 MG in Sodium Chloride 0.9% 50 ML IVPB SCH (09:00)
[2016-12-10] MEDS: MethylPREDNISolone 40 mg Vial IVP SCH (09:01)
[2016-12-10] MEDS: Metoprolol Succinate 50 mg XL Tab PO SCH (09:01)
[2016-12-10] MEDS: Linezolid 600 mg in D5W 300 ml 600 MG/300 ML BAG IVPB SCH ×2 (09:09→21:21)
[2016-12-10 11:39] LABS: BASO # 0.1 K/uL (0.0-0.2); BASO % 0.4 % (0.0-2.0); EOS % 0.3 % (0.0-4.0); HEMATOCRIT 36.3 % (35.0-51.0); LYMPH # 0.9 K/uL (1.0-4.3); LYMPH % 6.5 % (20.0-40.0); MEAN CELL VOLUME 86.5 fl (80.0-94.0); MEAN CORPUSCULAR HEMOGLOBIN 28.8 pg (27.0-31.0); MEAN CORPUSCULAR HGB CONC 33.4 g/dL (33.0-37.0); MEAN PLATELET VOLUME 9.1 fl (7.2-11.7); MONO # 1.2 K/uL (0.0-0.8); MONO % 8.1 % (0.0-10.0); NEUT # 12.1 K/uL (1.8-7.0); NEUT % 84.7 % (50.0-75.0); PLATELET COUNT 376 K/uL (130-400); WHITE BLOOD COUNT 14.3 K/uL (4.8-10.8)
[2016-12-10 12:05] LABS: ALB/GLOB RATIO 1.2 (1.0-2.1); ALKALINE PHOSPHATASE 55 U/L (38-126); ALT/SGPT 40 U/L (21-72); AST/SGOT 18 U/L (17-59); BILIRUBIN,TOTAL 0.2 mg/dl (0.2-1.3); BLOOD UREA NITROGEN 21 mg/dl (9-20); CALCIUM 8.9 mg/dL (8.4-10.2); CARBON DIOXIDE 27 mmol/L (22-30); CHLORIDE 103 mmol/L (98-107); GFR AFRICAN-AMERICAN > 60; GLUCOSE,RANDOM 113 mg/dL (75-110); POTASSIUM 3.8 MMOL/L (3.6-5.0); SODIUM 138 mmol/l (132-148); TOTAL PROTEIN 6.2 G/DL (6.3-8.2)
--- NOTE | 2016-12-10 12:13 | RAD ---
HISTORY: COMPARISON: 12/06/2016. TECHNIQUE: Chest PA and lateral FINDINGS: LINES AND TUBES: None. LUNG AND PLEURA: The lungs are hyperinflated and there is peribronchial thickening with chronic changes in both lungs. No focal consolidation. HEART AND MEDIASTINUM: The heart is not enlarged. The hilar and mediastinal contours are within normal limits. SKELETAL STRUCTURES: The bony structures are within normal limits for the patient's age. VISUALIZED UPPER ABDOMEN: Normal. OTHER FINDINGS: None. IMPRESSION: No active pulmonary disease.
[2016-12-10 12:14] LABS: EOSINOPHIL 1 % (0-7); NEUTROPHIL 86 % (42-75); TOTAL CELLS COUNTED 100
[2016-12-10 12:18] LABS: LARGE PLATELETS PRESENT
--- NOTE | 2016-12-10 14:31 | CP.PCM.PN ---
Subjective - Date & Time of Evaluation Date of Evaluation: 12/10/16 - Subjective Subjective: F/U MRSA PNA occasional cough dry at times scanty yellowish flegm, no SOB , no GREEN Objective - Vital Signs/Intake and Output Vital Signs (last 24 hours): Temp Pulse Resp BP Pulse Ox 97.2 F L 59 L 20 108/70 99 12/10/16 08:46 12/10/16 09:01 12/10/16 08:46 12/10/16 09:01 12/10/16 08:46 - Medications Medications: Current Medications Albuterol/Ipratropium (Duoneb 3 Mg/0.5 Mg (3 Ml) Ud) 3 ml INH RQ4 [facility] Last Admin: 12/10/16 11:00 Dose: 3 ml Amitriptyline HCl (Elavil) 10 mg PO HS [facility] Last Admin: 12/09/16 21:21 Dose: 10 mg Aspirin (Ecotrin) 81 mg PO DAILY [facility] Last Admin: 12/10/16 09:01 Dose: 81 mg Atorvastatin Calcium (Lipitor) 40 mg PO HS [facility] Last Admin: 12/09/16 21:21 Dose: 40 mg Folic Acid (Folic Acid) 1 mg PO DAILY [facility] Last Admin: 12/10/16 09:01 Dose: 1 mg Hydroxychloroquine Sulfate (Plaquenil) 200 mg PO BID [facility] Last Admin: 12/10/16 09:00 Dose: 200 mg Linezolid (Zyvox 600mg/300ml D5w) 600 mg in 300 mls @ 150 mls/hr IVPB Q12 [facility] Last Admin: 12/10/16 09:09 Dose: 150 mls/hr Meclizine HCl (Antivert) 25 mg PO TID PRN PRN Reason: Dizziness Methotrexate (Methotrexate) 15 mg PO SUN [facility] PRN Reason: Protocol Methylprednisolone (Solu-Medrol) 30 mg IVP DAILY [facility] Last Admin: 12/10/16 09:01 Dose: 30 mg Metoprolol Succinate (Toprol Xl) 50 mg PO DAILY [facility] Last Admin: 12/10/16 09:01 Dose: 50 mg Pantoprazole Sodium (Protonix Ec Tab) 40 mg PO DAILY [facility] Last Admin: 12/10/16 09:00 Dose: 40 mg Promethazine HCl/Codeine (Phenergan/Codeine Oral Syrup) 10 ml PO Q4H PRN PRN Reason: Cough Last Admin: 12/09/16 11:58 Dose: 10 ml Tamsulosin HCl (Flomax) 0.4 mg PO HS [facility] Last Admin: 12/09/16 21:21 Dose: 0.4 mg Ticagrelor (Brilinta) 90 mg PO BID [facility] Last Admin: 12/10/16 09:00 Dose: 90 mg Zolpidem Tartrate (Ambien) 10 mg PO HS [facility] Last Admin: 12/09/16 21:20 Dose: 10 mg - Labs Labs: 12/10/16 11:00 12/10/16 11:00 - Constitutional Appears: No Acute Distress, Chronically Ill - Head Exam Head Exam: NORMAL INSPECTION - Eye Exam Eye Exam: PERRL - ENT Exam ENT Exam: Normal Exam - Neck Exam Neck Exam: Normal Inspection - Respiratory Exam Respiratory Exam: Decreased Breath Sounds (b/l) - Cardiovascular Exam Cardiovascular Exam: REGULAR RHYTHM - GI/Abdominal Exam GI & Abdominal Exam: Soft, Normal Bowel Sounds - Extremities Exam Extremities Exam: Tenderness (mild , shoulders, hands, knees.) - Back Exam Back Exam: NORMAL INSPECTION - Neurological Exam Neurological Exam: Alert, Oriented x3. absent: Motor Sensory Deficit - Psychiatric Exam Psychiatric exam: Anxious, Depressed - Skin Skin Exam: Normal Color, Warm Assessment and Plan (1) MRSA pneumonia Status: Acute (2) COPD exacerbation Status: Acute (3) RA (rheumatoid arthritis) Status: Chronic (4) HTN (hypertension) Status: Chronic (5) CAD (coronary artery disease) Status: Chronic (6) Depression Status: Acute (7) Anxiety Status: Acute - Assessment and Plan (Free Text) Plan: Zyvox , DuoNeb , taper steroid , continue rest of treatment, Patient is functional, no need for PT
[2016-12-11] MEDS: Albuterol-Ipratrop 3 mg / 0.5 (3 ml) UD INH SCH ×6 (00:47→19:26)
[2016-12-11] MEDS: MethylPREDNISolone 40 mg Vial IVP SCH (08:53)
[2016-12-11] MEDS: Pantoprazole 40 mg EC Tab PO SCH (08:55)
[2016-12-11] MEDS: Metoprolol Succinate 50 mg XL Tab PO SCH (08:55)
[2016-12-11] MEDS: Linezolid 600 mg in D5W 300 ml 600 MG/300 ML BAG IVPB SCH ×2 (08:56→22:41)
[2016-12-11] MEDS ORDERED: Sodium Chloride 3% for Inhalation 4 ML VIAL.NEB IH PRN (12:06)
[2016-12-11] MEDS ORDERED: methylPREDNISolone 30 GM in Sodium Chloride 0.9% 250 ML IV ONE (16:13)
[2016-12-11] MEDS ORDERED: MethylPREDNISolone 40 mg Vial IVP ONE (16:15)
--- NOTE | 2016-12-11 18:33 | CP.PCM.PN ---
Subjective - Date & Time of Evaluation Date of Evaluation: 12/11/16 Time of Evaluation: 10:00 - Subjective Subjective: F/U MRSA PNA Cough scanty productive increased since yesterday evening and today , Chest congestion Objective - Vital Signs/Intake and Output Vital Signs (last 24 hours): Temp Pulse Resp BP Pulse Ox 97.7 F 69 20 124/72 97 12/11/16 15:45 12/11/16 15:45 12/11/16 15:45 12/11/16 15:45 12/11/16 15:45 - Medications Medications: Current Medications Albuterol/Ipratropium (Duoneb 3 Mg/0.5 Mg (3 Ml) Ud) 3 ml INH RQ4 [facility] Last Admin: 12/11/16 15:07 Dose: 3 ml Amitriptyline HCl (Elavil) 10 mg PO HS [facility] Last Admin: 12/10/16 21:22 Dose: 10 mg Aspirin (Ecotrin) 81 mg PO DAILY [facility] Last Admin: 12/11/16 08:56 Dose: 81 mg Atorvastatin Calcium (Lipitor) 40 mg PO HS [facility] Last Admin: 12/10/16 21:21 Dose: 40 mg Folic Acid (Folic Acid) 1 mg PO DAILY [facility] Last Admin: 12/11/16 08:56 Dose: 1 mg Hydroxychloroquine Sulfate (Plaquenil) 200 mg PO BID [facility] Last Admin: 12/11/16 16:55 Dose: 200 mg Linezolid (Zyvox 600mg/300ml D5w) 600 mg in 300 mls @ 150 mls/hr IVPB Q12 [facility] Last Admin: 12/11/16 08:56 Dose: 150 mls/hr Meclizine HCl (Antivert) 25 mg PO TID PRN PRN Reason: Dizziness Methotrexate (Methotrexate) 15 mg PO SUN [facility] PRN Reason: Protocol Methylprednisolone (Solu-Medrol) 30 mg IVP DAILY [facility] Last Admin: 12/11/16 08:53 Dose: 30 mg Metoprolol Succinate (Toprol Xl) 50 mg PO DAILY [facility] Last Admin: 12/11/16 08:55 Dose: Not Given Pantoprazole Sodium (Protonix Ec Tab) 40 mg PO DAILY [facility] Last Admin: 12/11/16 08:55 Dose: 40 mg Promethazine HCl/Codeine (Phenergan/Codeine Oral Syrup) 10 ml PO Q4H PRN PRN Reason: Cough Last Admin: 12/09/16 11:58 Dose: 10 ml Tamsulosin HCl (Flomax) 0.4 mg PO [facility] Last Admin: 12/10/16 21:21 Dose: 0.4 mg Ticagrelor (Brilinta) 90 mg PO BID [facility] Last Admin: 12/11/16 16:55 Dose: 90 mg Zolpidem Tartrate (Ambien) 10 mg PO HS [facility] Last Admin: 12/10/16 21:21 Dose: 10 mg - Labs Labs: 12/10/16 11:00 12/10/16 11:00 - Constitutional Appears: No Acute Distress - Head Exam Head Exam: NORMAL INSPECTION - Eye Exam Eye Exam: PERRL - ENT Exam ENT Exam: Normal Exam - Neck Exam Neck Exam: Normal Inspection - Respiratory Exam Respiratory Exam: Decreased Breath Sounds (b/l), Wheezes (scattered) - Cardiovascular Exam Cardiovascular Exam: REGULAR RHYTHM - GI/Abdominal Exam GI & Abdominal Exam: Soft, Normal Bowel Sounds - Extremities Exam Extremities Exam: Tenderness (mild shoulders, hands, knees.) - Back Exam Back Exam: NORMAL INSPECTION - Neurological Exam Neurological Exam: Alert, Oriented x3. absent: Motor Sensory Deficit - Psychiatric Exam Psychiatric exam: Anxious, Depressed - Skin Skin Exam: Normal Color, Warm Assessment and Plan (1) MRSA pneumonia Status: Acute (2) COPD exacerbation Status: Acute (3) RA (rheumatoid arthritis) Status: Chronic (4) HTN (hypertension) Status: Chronic (5) CAD (coronary artery disease) Status: Chronic (6) Depression Status: Acute (7) Anxiety Status: Acute - Assessment and Plan (Free Text) Plan: Zyvox , DuoNeb , Solu Medrol, Prometh with Codeine , and rest of treatment, f/ u sputum C-S
[2016-12-12] MEDS: Albuterol-Ipratrop 3 mg / 0.5 (3 ml) UD INH SCH ×6 (00:08→20:00)
[2016-12-12] MEDS: Pantoprazole 40 mg EC Tab PO SCH (09:12)
[2016-12-12] MEDS: Metoprolol Succinate 50 mg XL Tab PO SCH (09:13)
[2016-12-12] MEDS: MethylPREDNISolone 40 mg Vial IVP SCH ×2 (09:13→22:52)
[2016-12-12] MEDS: Linezolid 600 mg in D5W 300 ml 600 MG/300 ML BAG IVPB SCH (09:14)
--- NOTE | 2016-12-12 13:27 | CP.PCM.CON ---
History of Present Illness - History of Present Illness History of Present Illness: On zyvox for recent MRSA infection overall improved but c/o chest pain and congestion - yellow phlegm recent sputum c/s + ESBL gram neg- ? colonized as CXR shows NAPD cont rx as per Dr Adelaida crocker d/c zyvox follow up CXR Review of Systems - Review of Systems All systems: reviewed and no additional remarkable complaints except - Constitutional Constitutional: As Per HPI - EENT Eyes: absent: As Per HPI, Blind Spots, Blurred Vision, Change in Vision, Decreased Night Vision, Diplopia, Discharge, Dry Eye, Exophthalmos, Floaters, Irritation, Itchy Eyes, Loss of Peripheral Vision, Pain, Photophobia, Requires Corrective Lenses, Sees Flashes, Spots in Vision, Tunnel Vision, Other Visual Disturbances, Loss of Vision, Other Ears: absent: As Per HPI, Decreased Hearing, Ear Discharge, Ear Pain, Tinnitus, Abnormal Hearing, Disequilibrium, Dizziness, Other Nose/Mouth/Throat: absent: As Per HPI, Epistaxis, Nasal Congestion, Nasal Discharge, Nasal Obstruction, Nasal Trauma, Nose Pain, Post Nasal Drip, Sinus Pain, Sinus Pressure, Bleeding Gums, Change in Voice, Dental Pain, Dry Mouth, Dysphagia, Halitosis, Hoarsness, Lip Swelling, Mouth Lesions, Mouth Pain, Odynophagia, Sore Throat, Throat Swelling, Tongue Swelling, Facial Pain, Neck Pain, Neck Mass, Other - Cardiovascular Cardiovascular: absent: As Per HPI, Acrocyanosis, Chest Pain, Chest Pain at Rest , Chest Pain with Activity, Claudication, Diaphoresis, Dyspnea, Dyspnea on Exertion, Edema, Irregular Heart Rhythm, Pain Radiating to Arm/Neck/Jaw, Leg Edema, Leg Ulcers, Lightheadedness, Orthopnea, Palpitations, Paroxysmal Nocturnal Dyspnea, Pedal Edema, Radiating Pain, Rapid Heart Rate, Slow Heart Rate, Syncope, Other - Respiratory Respiratory: As Per HPI - Gastrointestinal Gastrointestinal: absent: As Per HPI, Abdominal Pain, Belching, Bloating, Change in Bowel Habits, Change in Stool Character, Coffee Ground Emesis, Constipation, Cramping, Diarrhea, Dyspepsia, Dysphagia, Early Satiety, Excessive Flatus, Fecal Incontinence, Heartburn, Hematemesis, Hematochezia, Loose Stools, Melena, Nausea, Odynophagia, Temesmus, Vomiting, Other - Genitourinary Genitourinary: absent: As Per HPI, Change in Urinary Stream, Difficulty Urinating, Dysuria, Flank Pain, Hematuria, Pyuria, Nocturia, Urinary Incontinence, Urinary Frequency, Urinary Hesitance, Urinary Urgency, Voiding Freq/Small Amts, Freq UTI, Hx Renal/Bladder Calculi, Hx /Renal Surgery, Bladder Distension, Other - Musculoskeletal Musculoskeletal: absent: As Per HPI, Abnormal Gait, Arthralgias, Atrophy, Back Pain, Deformity, Joint Swelling, Limited Range of Motion, Loss of Height, Muscle Cramps, Muscle Weakness, Myalgias, Neck Pain, Numbness, Radiating Pain into Limb, Stiffness, Tingling, Other - Integumentary Integumentary: absent: As Per HPI, Acne, Alopecia, Bleeding Lesions, Change in Hair, Change in Nails, Change in Pigmentation, Changing Lesions, Dry Skin, Erythema, Furuncle, Hirsutism, Lesions, New Lesions, Non-Healing Lesions, Photosensitivity, Pruritus, Rash, Skin Pain, Skin Ulcer, Sores, Striae, Swelling , Unusual Bruising, Wounds, Jaundice, Other - Neurological Neurological: absent: As Per HPI, Abnormal Gait, Abnormal Hearing, Abnormal Movements, Abnormal Speech, Behavioral Changes, Burning Sensations, Confusion, Convulsions, Disequilibrium, Dizziness, Numbness, Focal Weakness, Frequent Falls , Headaches, Lack of Coordination, Loss of Vision, Memory Loss, Paresthesias, Radicular Pain, Restless Legs, Sensory Deficit, Syncope, Tingling, Tremor, Vertigo, Weakness, Other Visual Disturbances, Other - Psychiatric Psychiatric: absent: As Per HPI, Abnormal Sleep Pattern, Anhedonia, Anxiety, Auditory Hallucinations, Behavioral Changes, Change in Appetite, Change in Libido, Confusion, Depression, Difficulty Concentrating, Hallucinations, Homicidal Ideation, Hopelessness, Irritability, Memory Loss, Mood Swings, Panic Attacks, Paranoia, Suicidal Ideation, Visual Hallucinations, Tactile Hallucinations, Other - Endocrine Endocrine: absent: As Per HPI, Change in Body Appearance, Change in Libido, Cold Intolorance, Deepening of Voice, Excessive Sweating, Fatigue, Flushing, Heat Intolorance, Increase in Ring/Shoe/Hat Size, Palpitations, Polydipsia, Polyphagia, Polyuria, Other - Hematologic/Lymphatic Hematologic: absent: As Per HPI, Easy Bleeding, Easy Bruising, Lymphadenopathy, Other Past Patient History - Infectious Disease Hx of Infectious Diseases: None - Past Medical History & Family History Past Medical History?: Yes - Past Social History Smoking Status: Light Smoker < 10 Cigarettes Daily Alcohol: None Drugs: Denies - CARDIAC Hx Cardiac Disorders: Yes Hx Hypercholesterolemia: Yes Hx Hypertension: Yes Other/Comment: Coronary stent x2 - PULMONARY Hx Respiratory Disorders: Yes Hx Asthma: Yes Hx Chronic Obstructive Pulmonary Disease (COPD): Yes Hx Emphysema: Yes Hx Sleep Apnea: Yes - NEUROLOGICAL Hx Neurological Disorder: No - HEENT Hx HEENT Problems: No Hx Cataracts: No (denies) - RENAL Hx Chronic Kidney Disease: No - ENDOCRINE/METABOLIC Hx Endocrine Disorders: No - HEMATOLOGICAL/ONCOLOGICAL Hx Blood Disorders: Yes Hx Anemia: Yes - INTEGUMENTARY Hx Dermatological Problems: No - MUSCULOSKELETAL/RHEUMATOLOGICAL Hx Musculoskeletal Disorders: Yes Hx Falls: Yes Hx Osteoporosis: Yes Hx Rheumatoid Arthritis: Yes - GASTROINTESTINAL Hx Gastrointestinal Disorders: Yes Hx Gastroesophageal Reflux: Yes - GENITOURINARY/GYNECOLOGICAL Hx Genitourinary Disorders: Yes Hx Prostate Problems: Yes - PSYCHIATRIC Hx Psychophysiologic Disorder: Yes Hx Anxiety: Yes Hx Depression: Yes Hx Substance Use: No - SURGICAL HISTORY Hx Surgeries: Yes Hx Coronary Stent: Yes (x2) Hx Splenectomy: Yes Other/Comment: Spleen Surgery - 15 yrs. ago - ANESTHESIA Hx Anesthesia: Yes Hx Anesthesia Reactions: No Hx Malignant Hyperthermia: No Meds Allergies/Adverse Reactions: Allergies Allergy/AdvReac Type Severity Reaction Status Date / Time No Known Allergies Allergy Verified 12/08/16 14:51 - Medications Medications: Current Medications Albuterol/Ipratropium (Duoneb 3 Mg/0.5 Mg (3 Ml) Ud) 3 ml INH RQ4 [facility] Last Admin: 12/12/16 11:55 Dose: 3 ml Amitriptyline HCl (Elavil) 10 mg PO HS [facility] Last Admin: 12/11/16 22:41 Dose: 10 mg Aspirin (Ecotrin) 81 mg PO DAILY [facility] Last Admin: 12/12/16 09:12 Dose: 81 mg Atorvastatin Calcium (Lipitor) 40 mg PO HS [facility] Last Admin: 12/11/16 22:41 Dose: 40 mg Folic Acid (Folic Acid) 1 mg PO DAILY [facility] Last Admin: 12/12/16 09:12 Dose: 1 mg Hydroxychloroquine Sulfate (Plaquenil) 200 mg PO BID [facility] Last Admin: 12/12/16 09:12 Dose: 200 mg Linezolid (Zyvox 600mg/300ml D5w) 600 mg in 300 mls @ 150 mls/hr IVPB Q12 [facility] Last Admin: 12/12/16 09:14 Dose: 150 mls/hr Meclizine HCl (Antivert) 25 mg PO TID PRN PRN Reason: Dizziness Methotrexate (Methotrexate) 15 mg PO SUN [facility] PRN Reason: Protocol Methylprednisolone (Solu-Medrol) 30 mg IVP Q12 [facility] Metoprolol Succinate (Toprol Xl) 50 mg PO DAILY [facility] Last Admin: 12/12/16 09:13 Dose: 50 mg Pantoprazole Sodium (Protonix Ec Tab) 40 mg PO DAILY [facility] Last Admin: 12/12/16 09:12 Dose: 40 mg Promethazine HCl/Codeine (Phenergan/Codeine Oral Syrup) 10 ml PO Q4H PRN PRN Reason: Cough Last Admin: 12/09/16 11:58 Dose: 10 ml Tamsulosin HCl (Flomax) 0.4 mg PO [facility] Last Admin: 12/11/16 22:41 Dose: 0.4 mg Ticagrelor (Brilinta) 90 mg PO BID [facility] Last Admin: 12/12/16 09:12 Dose: 90 mg Zolpidem Tartrate (Ambien) 10 mg PO [facility] Last Admin: 12/11/16 22:40 Dose: 10 mg Physical Exam - Constitutional Appears: Non-toxic, Chronically Ill - Head Exam Head Exam: NORMOCEPHALIC - Eye Exam Eye Exam: PERRL. absent: Scleral icterus - ENT Exam ENT Exam: Mucous Membranes Dry - Neck Exam Neck exam: Negative for: Lymphadenopathy - Respiratory Exam Respiratory Exam: Decreased Breath Sounds, Rhonchi - Cardiovascular Exam Cardiovascular Exam: REGULAR RHYTHM, +S1, +S2 - GI/Abdominal Exam GI & Abdominal Exam: Diminished Bowel Sounds, Soft. absent: Tenderness - Rectal Exam Rectal Exam: Deferred - Exam Exam: NORMAL INSPECTION - Extremities Exam Extremities exam: Negative for: pedal edema - Back Exam Back exam: absent: CVA tenderness (L), CVA tenderness (R) - Neurological Exam Neurological exam: Alert, CN II-XII Intact, Oriented x3, Reflexes Normal - Psychiatric Exam Psychiatric exam: Depressed - Skin Skin Exam: Dry, Intact Results - Vital Signs Recent Vital Signs: Last Vital Signs Temp 97.7 F 12/12/16 10:00 Pulse 74 12/12/16 10:00 Resp 20 12/12/16 10:00 BP 120/73 12/12/16 10:00 Pulse Ox 98 12/12/16 10:00 - Labs Result Diagrams: 12/10/16 11:00 12/10/16 11:00 Labs: Laboratory Results - last 24 hr 12/11/16 12/11/16 12/12/16 16:09 20:48 07:17 POC Glucose (mg/dL) 159 H 128 H 126 H 12/12/16 10:42 POC Glucose (mg/dL) 144 H Assessment & Plan (1) Acute chest pain Status: Acute (2) COPD exacerbation Status: Acute Priority: High (3) Chest pain Status: Acute - Assessment and Plan (Free Text) Assessment: follow up CXR and add Merrem
[2016-12-12 14:21] LABS: HEMATOCRIT 38.6 % (35.0-51.0); MEAN CELL VOLUME 88.3 fl (80.0-94.0); MEAN CORPUSCULAR HEMOGLOBIN 27.8 pg (27.0-31.0); MEAN CORPUSCULAR HGB CONC 31.5 g/dL (33.0-37.0); RED CELL DISTRIBUTION WIDTH 17.9 % (11.5-14.5); WHITE BLOOD COUNT 17.9 K/uL (4.8-10.8)
[2016-12-12 14:30] LABS: ALB/GLOB RATIO 1.3 (1.0-2.1); ALKALINE PHOSPHATASE 64 U/L (38-126); ALT/SGPT 33 U/L (21-72); AST/SGOT 16 U/L (17-59); BILIRUBIN,TOTAL 0.1 mg/dl (0.2-1.3); BLOOD UREA NITROGEN 24 mg/dl (9-20); CALCIUM 8.8 mg/dL (8.4-10.2); CARBON DIOXIDE 25 mmol/L (22-30); CHLORIDE 104 mmol/L (98-107); GFR AFRICAN-AMERICAN > 60; GLUCOSE,RANDOM 145 mg/dL (75-110); POTASSIUM 4.2 MMOL/L (3.6-5.0); SODIUM 138 mmol/l (132-148); TOTAL PROTEIN 6.2 G/DL (6.3-8.2)
--- NOTE | 2016-12-12 16:16 | RAD ---
HISTORY: r/o pneumonia COMPARISON: Chest radiographs 12/10/2016. TECHNIQUE: Chest PA and lateral FINDINGS: LUNGS: No definite acute infiltrate appreciated, however, chronic interstitial pulmonary disease again appreciated. PLEURA: Probable chronic chronic fibrosis is favored over chronic trace pleural effusion blunting the right and possibly left costophrenic sulci. No interval pneumothorax. CARDIOVASCULAR: Normal. OSSEOUS STRUCTURES: No significant abnormalities. VISUALIZED UPPER ABDOMEN: Normal. OTHER FINDINGS: None. IMPRESSION: Chronic interstitial pulmonary changes again appreciate which may include blunting of the bilateral costophrenic sulci by fibrosis rather than effusions.
--- NOTE | 2016-12-12 16:36 | CP.PCM.PN ---
Subjective - Date & Time of Evaluation Date of Evaluation: 12/12/16 Time of Evaluation: 11:10 - Subjective Subjective: Earlier today developed Chest pain like pressure , radiated to the back, lasting aprox 20/min, cough with scanty yellowish flegm improved , chest congestion Objective - Vital Signs/Intake and Output Vital Signs (last 24 hours): Temp Pulse Resp BP Pulse Ox 97.7 F 63 20 119/79 98 12/12/16 16:03 12/12/16 16:03 12/12/16 16:03 12/12/16 16:03 12/12/16 16:03 - Medications Medications: Current Medications Albuterol/Ipratropium (Duoneb 3 Mg/0.5 Mg (3 Ml) Ud) 3 ml INH RQ4 [facility] Last Admin: 12/12/16 15:27 Dose: 3 ml Amitriptyline HCl (Elavil) 10 mg PO HS [facility] Last Admin: 12/11/16 22:41 Dose: 10 mg Aspirin (Ecotrin) 81 mg PO DAILY [facility] Last Admin: 12/12/16 09:12 Dose: 81 mg Atorvastatin Calcium (Lipitor) 40 mg PO HS [facility] Last Admin: 12/11/16 22:41 Dose: 40 mg Folic Acid (Folic Acid) 1 mg PO DAILY [facility] Last Admin: 12/12/16 09:12 Dose: 1 mg Hydroxychloroquine Sulfate (Plaquenil) 200 mg PO BID [facility] Last Admin: 12/12/16 09:12 Dose: 200 mg Meropenem 500 mg/ Sodium (Chloride) 100 mls @ 100 mls/hr IVPB Q8 [facility] PRN Reason: Protocol Meclizine HCl (Antivert) 25 mg PO TID PRN PRN Reason: Dizziness Methotrexate (Methotrexate) 15 mg PO SUN [facility] PRN Reason: Protocol Methylprednisolone (Solu-Medrol) 30 mg IVP Q12 [facility] Metoprolol Succinate (Toprol Xl) 50 mg PO DAILY [facility] Last Admin: 12/12/16 09:13 Dose: 50 mg Pantoprazole Sodium (Protonix Ec Tab) 40 mg PO DAILY [facility] Last Admin: 12/12/16 09:12 Dose: 40 mg Promethazine HCl/Codeine (Phenergan/Codeine Oral Syrup) 10 ml PO Q4H PRN PRN Reason: Cough Last Admin: 12/09/16 11:58 Dose: 10 ml Tamsulosin HCl (Flomax) 0.4 mg PO [facility] Last Admin: 12/11/16 22:41 Dose: 0.4 mg Ticagrelor (Brilinta) 90 mg PO BID [facility] Last Admin: 12/12/16 09:12 Dose: 90 mg Zolpidem Tartrate (Ambien) 10 mg PO [facility] Last Admin: 12/11/16 22:40 Dose: 10 mg - Labs Labs: 12/12/16 14:10 12/12/16 14:10 - Constitutional Appears: No Acute Distress - Head Exam Head Exam: NORMAL INSPECTION - Eye Exam Eye Exam: PERRL - ENT Exam ENT Exam: Normal Exam - Neck Exam Neck Exam: Normal Inspection - Respiratory Exam Respiratory Exam: Decreased Breath Sounds (at bases), Wheezes (scattered) - Cardiovascular Exam Cardiovascular Exam: REGULAR RHYTHM - GI/Abdominal Exam GI & Abdominal Exam: Soft, Normal Bowel Sounds - Extremities Exam Extremities Exam: Normal Inspection, Tenderness (mild knees) - Neurological Exam Neurological Exam: Alert, CN II-XII Intact, Oriented x3. absent: Motor Sensory Deficit - Psychiatric Exam Psychiatric exam: Anxious - Skin Skin Exam: Warm Assessment and Plan (1) MRSA pneumonia Status: Acute (2) COPD exacerbation Status: Acute (3) RA (rheumatoid arthritis) Status: Chronic (4) HTN (hypertension) Status: Chronic (5) CAD (coronary artery disease) Assessment & Plan: stent Status: Chronic (6) Depression Status: Acute (7) Anxiety Status: Acute (8) Chest pain Status: Acute - Assessment and Plan (Free Text) Plan: EKG , CXR , Cardiac consult, Trop x 3, Zyvox , Duo Neb and rest of treatment , f/u Sputum C-S , f/u ID
[2016-12-12] MEDS: Meropenem 500 MG in Sodium Chloride 0.9% 100 ML IVPB SCH (17:28)
--- NOTE | 2016-12-12 18:32 | CP.PCM.CON ---
History of Present Illness - History of Present Illness History of Present Illness: I was asked to evaluate patient by Dr Son. Patient is a 71 year old male with a history of HTN CAD s/p stent LAD, COPD admitted for pneumonia. While on TCU he developed chest pain. He states he has productive cough. His chest pain occurs with coughing. He denies palpitations. Review of Systems - Constitutional Constitutional: absent: As Per HPI, Anorexia, Chills, Daytime Sleepiness, Excessive Sweating, Fatigue, Fever, Frequent Falls, Headache, Increased Appetite , Lethargy, Malaise, Night Sweats, Snoring, Sleep Apnea, Weight Gain, Weight Loss, Weakness, Other - EENT Eyes: absent: As Per HPI, Blind Spots, Blurred Vision, Change in Vision, Decreased Night Vision, Diplopia, Discharge, Dry Eye, Exophthalmos, Floaters, Irritation, Itchy Eyes, Loss of Peripheral Vision, Pain, Photophobia, Requires Corrective Lenses, Sees Flashes, Spots in Vision, Tunnel Vision, Other Visual Disturbances, Loss of Vision, Other Ears: absent: As Per HPI, Decreased Hearing, Ear Discharge, Ear Pain, Tinnitus, Abnormal Hearing, Disequilibrium, Dizziness, Other Nose/Mouth/Throat: absent: As Per HPI, Epistaxis, Nasal Congestion, Nasal Discharge, Nasal Obstruction, Nasal Trauma, Nose Pain, Post Nasal Drip, Sinus Pain, Sinus Pressure, Bleeding Gums, Change in Voice, Dental Pain, Dry Mouth, Dysphagia, Halitosis, Hoarsness, Lip Swelling, Mouth Lesions, Mouth Pain, Odynophagia, Sore Throat, Throat Swelling, Tongue Swelling, Facial Pain, Neck Pain, Neck Mass, Other - Cardiovascular Cardiovascular: absent: As Per HPI, Acrocyanosis, Chest Pain, Chest Pain at Rest , Chest Pain with Activity, Claudication, Diaphoresis, Dyspnea, Dyspnea on Exertion, Edema, Irregular Heart Rhythm, Pain Radiating to Arm/Neck/Jaw, Leg Edema, Leg Ulcers, Lightheadedness, Orthopnea, Palpitations, Paroxysmal Nocturnal Dyspnea, Pedal Edema, Radiating Pain, Rapid Heart Rate, Slow Heart Rate, Syncope, Other - Respiratory Respiratory: Cough, Chest Congestion, Pain with Coughing - Gastrointestinal Gastrointestinal: absent: As Per HPI, Abdominal Pain, Belching, Bloating, Change in Bowel Habits, Change in Stool Character, Coffee Ground Emesis, Constipation, Cramping, Diarrhea, Dyspepsia, Dysphagia, Early Satiety, Excessive Flatus, Fecal Incontinence, Heartburn, Hematemesis, Hematochezia, Loose Stools, Melena, Nausea, Odynophagia, Temesmus, Vomiting, Other - Genitourinary Genitourinary: absent: As Per HPI, Change in Urinary Stream, Difficulty Urinating, Dysuria, Flank Pain, Hematuria, Pyuria, Nocturia, Urinary Incontinence, Urinary Frequency, Urinary Hesitance, Urinary Urgency, Voiding Freq/Small Amts, Freq UTI, Hx Renal/Bladder Calculi, Hx /Renal Surgery, Bladder Distension, Other - Musculoskeletal Musculoskeletal: absent: As Per HPI, Abnormal Gait, Arthralgias, Atrophy, Back Pain, Deformity, Joint Swelling, Limited Range of Motion, Loss of Height, Muscle Cramps, Muscle Weakness, Myalgias, Neck Pain, Numbness, Radiating Pain into Limb, Stiffness, Tingling, Other - Integumentary Integumentary: absent: As Per HPI, Acne, Alopecia, Bleeding Lesions, Change in Hair, Change in Nails, Change in Pigmentation, Changing Lesions, Dry Skin, Erythema, Furuncle, Hirsutism, Lesions, New Lesions, Non-Healing Lesions, Photosensitivity, Pruritus, Rash, Skin Pain, Skin Ulcer, Sores, Striae, Swelling , Unusual Bruising, Wounds, Jaundice, Other - Neurological Neurological: absent: As Per HPI, Abnormal Gait, Abnormal Hearing, Abnormal Movements, Abnormal Speech, Behavioral Changes, Burning Sensations, Confusion, Convulsions, Disequilibrium, Dizziness, Numbness, Focal Weakness, Frequent Falls , Headaches, Lack of Coordination, Loss of Vision, Memory Loss, Paresthesias, Radicular Pain, Restless Legs, Sensory Deficit, Syncope, Tingling, Tremor, Vertigo, Weakness, Other Visual Disturbances, Other - Psychiatric Psychiatric: absent: As Per HPI, Abnormal Sleep Pattern, Anhedonia, Anxiety, Auditory Hallucinations, Behavioral Changes, Change in Appetite, Change in Libido, Confusion, Depression, Difficulty Concentrating, Hallucinations, Homicidal Ideation, Hopelessness, Irritability, Memory Loss, Mood Swings, Panic Attacks, Paranoia, Suicidal Ideation, Visual Hallucinations, Tactile Hallucinations, Other - Endocrine Endocrine: absent: As Per HPI, Change in Body Appearance, Change in Libido, Cold Intolorance, Deepening of Voice, Excessive Sweating, Fatigue, Flushing, Heat Intolorance, Increase in Ring/Shoe/Hat Size, Palpitations, Polydipsia, Polyphagia, Polyuria, Other - Hematologic/Lymphatic Hematologic: absent: As Per HPI, Easy Bleeding, Easy Bruising, Lymphadenopathy, Other Past Patient History - Infectious Disease Hx of Infectious Diseases: None - Past Medical History & Family History Past Medical History?: Yes - Past Social History Smoking Status: Light Smoker < 10 Cigarettes Daily Alcohol: None Drugs: Denies - CARDIAC Hx Cardiac Disorders: Yes Hx Hypercholesterolemia: Yes Hx Hypertension: Yes Other/Comment: Coronary stent x2 - PULMONARY Hx Respiratory Disorders: Yes Hx Asthma: Yes Hx Chronic Obstructive Pulmonary Disease (COPD): Yes Hx Emphysema: Yes Hx Sleep Apnea: Yes - NEUROLOGICAL Hx Neurological Disorder: No - HEENT Hx HEENT Problems: No Hx Cataracts: No (denies) - RENAL Hx Chronic Kidney Disease: No - ENDOCRINE/METABOLIC Hx Endocrine Disorders: No - HEMATOLOGICAL/ONCOLOGICAL Hx Blood Disorders: Yes Hx Anemia: Yes - INTEGUMENTARY Hx Dermatological Problems: No - MUSCULOSKELETAL/RHEUMATOLOGICAL Hx Musculoskeletal Disorders: Yes Hx Falls: Yes Hx Osteoporosis: Yes Hx Rheumatoid Arthritis: Yes - GASTROINTESTINAL Hx Gastrointestinal Disorders: Yes Hx Gastroesophageal Reflux: Yes - GENITOURINARY/GYNECOLOGICAL Hx Genitourinary Disorders: Yes Hx Prostate Problems: Yes - PSYCHIATRIC Hx Psychophysiologic Disorder: Yes Hx Anxiety: Yes Hx Depression: Yes Hx Substance Use: No - SURGICAL HISTORY Hx Surgeries: Yes Hx Coronary Stent: Yes (x2) Hx Splenectomy: Yes Other/Comment: Spleen Surgery - 15 yrs. ago - ANESTHESIA Hx Anesthesia: Yes Hx Anesthesia Reactions: No Hx Malignant Hyperthermia: No Meds Allergies/Adverse Reactions: Allergies Allergy/AdvReac Type Severity Reaction Status Date / Time No Known Allergies Allergy Verified 12/08/16 14:51 - Medications Medications: Current Medications Albuterol/Ipratropium (Duoneb 3 Mg/0.5 Mg (3 Ml) Ud) 3 ml INH RQ4 [facility] Last Admin: 12/12/16 15:27 Dose: 3 ml Amitriptyline HCl (Elavil) 10 mg PO HS [facility] Last Admin: 12/11/16 22:41 Dose: 10 mg Aspirin (Ecotrin) 81 mg PO DAILY [facility] Last Admin: 12/12/16 09:12 Dose: 81 mg Atorvastatin Calcium (Lipitor) 40 mg PO HS [facility] Last Admin: 12/11/16 22:41 Dose: 40 mg Folic Acid (Folic Acid) 1 mg PO DAILY [facility] Last Admin: 12/12/16 09:12 Dose: 1 mg Hydroxychloroquine Sulfate (Plaquenil) 200 mg PO BID [facility] Last Admin: 12/12/16 17:27 Dose: 200 mg Meropenem 500 mg/ Sodium (Chloride) 100 mls @ 100 mls/hr IVPB Q8 [facility] PRN Reason: Protocol Last Admin: 12/12/16 17:28 Dose: 100 mls/hr Meclizine HCl (Antivert) 25 mg PO TID PRN PRN Reason: Dizziness Methotrexate (Methotrexate) 15 mg PO SUN [facility] PRN Reason: Protocol Methylprednisolone (Solu-Medrol) 30 mg IVP Q12 [facility] Metoprolol Succinate (Toprol Xl) 50 mg PO DAILY [facility] Last Admin: 12/12/16 09:13 Dose: 50 mg Pantoprazole Sodium (Protonix Ec Tab) 40 mg PO DAILY [facility] Last Admin: 12/12/16 09:12 Dose: 40 mg Promethazine HCl/Codeine (Phenergan/Codeine Oral Syrup) 10 ml PO Q4H PRN PRN Reason: Cough Last Admin: 12/09/16 11:58 Dose: 10 ml Tamsulosin HCl (Flomax) 0.[address] [facility] Last Admin: 12/11/16 22:41 Dose: 0.4 mg Ticagrelor (Brilinta) 90 mg PO BID [facility] Last Admin: 12/12/16 17:27 Dose: 90 mg Zolpidem Tartrate (Ambien) 10 mg PO HS [facility] Last Admin: 12/11/16 22:40 Dose: 10 mg Physical Exam - Constitutional Appears: Non-toxic - Head Exam Head Exam: NORMAL INSPECTION - Eye Exam Eye Exam: Normal appearance - ENT Exam ENT Exam: Mucous Membranes Moist - Neck Exam Neck exam: Positive for: Full Rom - Respiratory Exam Respiratory Exam: Decreased Breath Sounds - Cardiovascular Exam Cardiovascular Exam: REGULAR RHYTHM - GI/Abdominal Exam GI & Abdominal Exam: Normal Bowel Sounds - Rectal Exam Rectal Exam: Deferred - Extremities Exam Extremities exam: Negative for: pedal edema - Back Exam Back exam: NORMAL INSPECTION - Neurological Exam Neurological exam: Alert, Oriented x3 - Psychiatric Exam Psychiatric exam: Normal Affect - Skin Skin Exam: Normal Color Results - Vital Signs Recent Vital Signs: Last Vital Signs Temp 97.7 F 12/12/16 16:03 Pulse 63 12/12/16 16:03 Resp 20 12/12/16 16:03 BP 119/79 12/12/16 16:03 Pulse Ox 98 12/12/16 16:03 - Labs Result Diagrams: 12/13/16 06:00 12/12/16 14:10 Labs: Laboratory Results - last 24 hr 12/11/16 12/12/16 12/12/16 20:48 07:17 10:42 WBC RBC Hgb Hct MCV MCH MCHC RDW Plt Count Sodium Potassium Chloride Carbon Dioxide Anion Gap BUN Creatinine Est GFR ( Amer) Est GFR (Non-Af Amer) POC Glucose (mg/dL) 128 H 126 H 144 H Random Glucose Calcium Total Bilirubin AST ALT Alkaline Phosphatase Troponin I Total Protein Albumin Globulin Albumin/Globulin Ratio 12/12/16 12/12/16 12/12/16 14:10 14:10 16:24 WBC 17.9 H RBC 4.38 L Hgb 12.1 Hct 38.6 MCV 88.3 MCH 27.8 MCHC 31.5 L RDW 17.9 H Plt Count 371 Sodium 138 Potassium 4.2 Chloride 104 Carbon Dioxide 25 Anion Gap 14 BUN 24 H Creatinine 0.9 Est GFR ( Amer) > 60 Est GFR (Non-Af Amer) > 60 POC Glucose (mg/dL) 137 H Random Glucose 145 H Calcium 8.8 Total Bilirubin 0.1 L AST 16 L ALT 33 Alkaline Phosphatase 64 Troponin I < 0.0120 Total Protein 6.2 L Albumin 3.4 L Globulin 2.7 Albumin/Globulin Ratio 1.3 - EKG Data EKG Interpreted by: Myself Assessment & Plan (1) Chest pain, pleuritic Status: Acute Priority: High (2) CAD (coronary artery disease) Assessment and Plan: s/p stent LAD. continue antiplatelet therapy Status: Chronic Priority: Medium (3) HTN (hypertension) Assessment and Plan: blood pressure control Status: Chronic Priority: Low
[2016-12-13] MEDS: Meropenem 500 MG in Sodium Chloride 0.9% 100 ML IVPB SCH ×3 (00:37→16:32)
[2016-12-13] MEDS: Albuterol-Ipratrop 3 mg / 0.5 (3 ml) UD INH SCH ×6 (00:57→19:51)
[2016-12-13 07:44] LABS: BASO % 0.1 % (0.0-2.0); HEMATOCRIT 38.5 % (35.0-51.0); LYMPH # 0.4 K/uL (1.0-4.3); LYMPH % 2.6 % (20.0-40.0); MEAN CELL VOLUME 86.9 fl (80.0-94.0); MEAN CORPUSCULAR HEMOGLOBIN 27.9 pg (27.0-31.0); MEAN CORPUSCULAR HGB CONC 32.1 g/dL (33.0-37.0); MEAN PLATELET VOLUME 9.1 fl (7.2-11.7); MONO # 0.7 K/uL (0.0-0.8); MONO % 4.5 % (0.0-10.0); NEUT # 14.7 K/uL (1.8-7.0); NEUT % 92.8 % (50.0-75.0); NRBC % 0.1 % (0.0-0.0); PLATELET COUNT 356 K/uL (130-400); RED CELL DISTRIBUTION WIDTH 17.9 % (11.5-14.5); WHITE BLOOD COUNT 15.8 K/uL (4.8-10.8)
[2016-12-13] MEDS: MethylPREDNISolone 40 mg Vial IVP SCH ×2 (09:09→21:26)
[2016-12-13] MEDS: Metoprolol Succinate 50 mg XL Tab PO SCH (09:10)
[2016-12-13] MEDS: Pantoprazole 40 mg EC Tab PO SCH (09:10)
--- NOTE | 2016-12-13 10:09 | CARD ---
APPROVED REPORT EKG Measurement Heart [id number] <Conclusion> Sinus rhythm with marked sinus arrhythmia Otherwise normal ECG
[2016-12-13 11:56] LABS: NEUTROPHIL 92 % (42-75); TOTAL CELLS COUNTED 100
[2016-12-13 11:58] LABS: GIANT PLATELETS PRESENT
--- NOTE | 2016-12-13 12:46 | CP.PCM.PN ---
Subjective - Date & Time of Evaluation Date of Evaluation: 12/13/16 Time of Evaluation: 14:00 - Subjective Subjective: minimal cough today , no chest pain , minimal chest congestion , no SOB , no GREEN Objective - Vital Signs/Intake and Output Vital Signs (last 24 hours): Temp Pulse Resp BP Pulse Ox 97.3 F L 70 20 106/74 98 12/13/16 08:32 12/13/16 09:10 12/13/16 08:32 12/13/16 09:10 12/13/16 08:32 - Medications Medications: Current Medications Albuterol/Ipratropium (Duoneb 3 Mg/0.5 Mg (3 Ml) Ud) 3 ml INH RQ4 [facility] Last Admin: 12/13/16 11:26 Dose: 3 ml Amitriptyline HCl (Elavil) 10 mg PO HS [facility] Last Admin: 12/12/16 22:51 Dose: 10 mg Aspirin (Ecotrin) 81 mg PO DAILY [facility] Last Admin: 12/13/16 09:11 Dose: 81 mg Atorvastatin Calcium (Lipitor) 40 mg PO HS [facility] Last Admin: 12/12/16 22:52 Dose: 40 mg Folic Acid (Folic Acid) 1 mg PO DAILY [facility] Last Admin: 12/13/16 09:10 Dose: 1 mg Hydroxychloroquine Sulfate (Plaquenil) 200 mg PO BID [facility] Last Admin: 12/13/16 09:18 Dose: 200 mg Meropenem 500 mg/ Sodium (Chloride) 100 mls @ 100 mls/hr IVPB Q8 [facility] PRN Reason: Protocol Last Admin: 12/13/16 09:11 Dose: 100 mls/hr Meclizine HCl (Antivert) 25 mg PO TID PRN PRN Reason: Dizziness Methotrexate (Methotrexate) 15 mg PO SUN [facility] PRN Reason: Protocol Methylprednisolone (Solu-Medrol) 30 mg IVP Q12 [facility] Last Admin: 12/13/16 09:09 Dose: 30 mg Metoprolol Succinate (Toprol Xl) 50 mg PO DAILY [facility] Last Admin: 12/13/16 09:10 Dose: 50 mg Pantoprazole Sodium (Protonix Ec Tab) 40 mg PO DAILY [facility] Last Admin: 12/13/16 09:10 Dose: 40 mg Promethazine HCl/Codeine (Phenergan/Codeine Oral Syrup) 10 ml PO Q4H PRN PRN Reason: Cough Last Admin: 12/09/16 11:58 Dose: 10 ml Tamsulosin HCl (Flomax) 0.4 mg PO HS [facility] Last Admin: 12/12/16 22:51 Dose: 0.4 mg Ticagrelor (Brilinta) 90 mg PO BID [facility] Last Admin: 12/13/16 09:09 Dose: 90 mg Zolpidem Tartrate (Ambien) 10 mg PO HS [facility] Last Admin: 12/12/16 22:51 Dose: 10 mg - Labs Labs: 12/13/16 06:00 12/12/16 14:10 - Constitutional Appears: No Acute Distress - Head Exam Head Exam: NORMAL INSPECTION - Eye Exam Eye Exam: PERRL - ENT Exam ENT Exam: Normal Exam - Respiratory Exam Respiratory Exam: Decreased Breath Sounds (at bases), Rhonchi (few at bases) - Cardiovascular Exam Cardiovascular Exam: REGULAR RHYTHM - GI/Abdominal Exam GI & Abdominal Exam: Soft, Normal Bowel Sounds - Extremities Exam Extremities Exam: Normal Inspection - Back Exam Back Exam: NORMAL INSPECTION - Neurological Exam Neurological Exam: Alert, Oriented x3. absent: Motor Sensory Deficit - Psychiatric Exam Psychiatric exam: Normal Affect, Normal Mood - Skin Skin Exam: Warm Assessment and Plan (1) MRSA pneumonia Status: Acute (2) COPD exacerbation Status: Acute (3) RA (rheumatoid arthritis) Status: Chronic (4) HTN (hypertension) Status: Chronic (5) CAD (coronary artery disease) Status: Chronic (6) Depression Status: Acute (7) Anxiety Status: Acute (8) Chest pain Status: Acute - Assessment and Plan (Free Text) Plan: Continue Merren , DuoNeb and rest of treatment, f/u sputum C-S , continue rest of treatment. Cardilogy consult appreciated , Chest Pain non Cardiac probably pleuritic.
[2016-12-14] MEDS: Meropenem 500 MG in Sodium Chloride 0.9% 100 ML IVPB SCH ×3 (00:13→17:09)
[2016-12-14] MEDS: Albuterol-Ipratrop 3 mg / 0.5 (3 ml) UD INH SCH ×7 (00:20→23:16)
[2016-12-14] MEDS: Pantoprazole 40 mg EC Tab PO SCH (09:12)
[2016-12-14] MEDS: MethylPREDNISolone 40 mg Vial IVP SCH ×2 (09:13→21:43)
--- NOTE | 2016-12-14 11:41 | CP.PCM.PN ---
Subjective - Date & Time of Evaluation Date of Evaluation: 12/14/16 Time of Evaluation: 07:00 - Subjective Subjective: improving less chest pain and cough seen by Dr Krishna IV rx in progress Objective - Vital Signs/Intake and Output Vital Signs (last 24 hours): Temp Pulse Resp BP Pulse Ox 97.5 F L 70 20 106/67 100 12/14/16 08:33 12/14/16 08:33 12/14/16 08:33 12/14/16 08:33 12/14/16 08:33 - Medications Medications: Current Medications Albuterol/Ipratropium (Duoneb 3 Mg/0.5 Mg (3 Ml) Ud) 3 ml INH RQ4 [facility] Last Admin: 12/14/16 07:53 Dose: 3 ml Amitriptyline HCl (Elavil) 10 mg PO HS [facility] Last Admin: 12/13/16 21:26 Dose: 10 mg Aspirin (Ecotrin) 81 mg PO DAILY [facility] Last Admin: 12/14/16 09:13 Dose: 81 mg Atorvastatin Calcium (Lipitor) 40 mg PO HS [facility] Last Admin: 12/13/16 21:25 Dose: 40 mg Folic Acid (Folic Acid) 1 mg PO DAILY [facility] Last Admin: 12/14/16 09:13 Dose: 1 mg Hydroxychloroquine Sulfate (Plaquenil) 200 mg PO BID [facility] Last Admin: 12/14/16 09:13 Dose: 200 mg Meropenem 500 mg/ Sodium (Chloride) 100 mls @ 100 mls/hr IVPB Q8 [facility] PRN Reason: Protocol Last Admin: 12/14/16 09:12 Dose: 100 mls/hr Meclizine HCl (Antivert) 25 mg PO TID PRN PRN Reason: Dizziness Methotrexate (Methotrexate) 15 mg PO SUN [facility] PRN Reason: Protocol Last Admin: 12/14/16 09:09 Dose: 15 mg Methylprednisolone (Solu-Medrol) 30 mg IVP Q12 [facility] Last Admin: 12/14/16 09:13 Dose: 30 mg Metoprolol Succinate (Toprol Xl) 25 mg PO DAILY [facility] Pantoprazole Sodium (Protonix Ec Tab) 40 mg PO DAILY [facility] Last Admin: 12/14/16 09:12 Dose: 40 mg Promethazine HCl/Codeine (Phenergan/Codeine Oral Syrup) 10 ml PO Q4H PRN PRN Reason: Cough Last Admin: 10/24/17 11:58 Dose: 10 ml Tamsulosin HCl (Flomax) 0.4 mg PO HS [facility] Last Admin: 12/13/16 21:26 Dose: 0.4 mg Ticagrelor (Brilinta) 90 mg PO BID [facility] Last Admin: 12/14/16 09:09 Dose: 90 mg Zolpidem Tartrate (Ambien) 10 mg PO HS [facility] Last Admin: 12/13/16 22:17 Dose: 10 mg - Labs Labs: 12/13/16 06:00 12/12/16 14:10 - Constitutional Appears: Non-toxic, Chronically Ill - Head Exam Head Exam: NORMOCEPHALIC - Eye Exam Eye Exam: absent: Scleral icterus - ENT Exam ENT Exam: Mucous Membranes Dry, Normal External Ear Exam - Neck Exam Neck Exam: absent: Lymphadenopathy - Respiratory Exam Respiratory Exam: Decreased Breath Sounds - Cardiovascular Exam Cardiovascular Exam: REGULAR RHYTHM - GI/Abdominal Exam GI & Abdominal Exam: Distended - Rectal Exam Rectal Exam: Deferred - Exam Exam: NORMAL INSPECTION - Extremities Exam Extremities Exam: absent: Pedal Edema - Back Exam Back Exam: absent: CVA tenderness (L), CVA tenderness (R) - Neurological Exam Neurological Exam: Alert, Awake, Oriented x3 Assessment and Plan (1) Acute chest pain Status: Acute (2) COPD exacerbation Status: Acute (3) Chest pain Status: Acute - Assessment and Plan (Free Text) Assessment: repeat c/s shows enterobacter and recent ESBL + organism not found - possible contaminant ? cont rx
[2016-12-14] MEDS ORDERED: Sodium Chloride 3% for Inhalation 4 ML VIAL.NEB IH PRN (14:10)
--- NOTE | 2016-12-14 16:01 | CP.PCM.PN ---
Subjective - Date & Time of Evaluation Date of Evaluation: 12/14/16 Time of Evaluation: 13:30 - Subjective Subjective: F/U MRSA PNA Pt with occasional dry cough, no SOB, no GREEN. Objective - Vital Signs/Intake and Output Vital Signs (last 24 hours): Temp Pulse Resp BP Pulse Ox 97.9 F 64 20 115/71 97 12/14/16 15:50 12/14/16 15:50 12/14/16 15:50 12/14/16 15:50 12/14/16 15:50 - Medications Medications: Current Medications Albuterol/Ipratropium (Duoneb 3 Mg/0.5 Mg (3 Ml) Ud) 3 ml INH RQ4 [facility] Last Admin: 12/14/16 11:45 Dose: 3 ml Amitriptyline HCl (Elavil) 10 mg PO HS [facility] Last Admin: 12/13/16 21:26 Dose: 10 mg Aspirin (Ecotrin) 81 mg PO DAILY [facility] Last Admin: 12/14/16 09:13 Dose: 81 mg Atorvastatin Calcium (Lipitor) 40 mg PO HS [facility] Last Admin: 12/13/16 21:25 Dose: 40 mg Folic Acid (Folic Acid) 1 mg PO DAILY [facility] Last Admin: 12/14/16 09:13 Dose: 1 mg Hydroxychloroquine Sulfate (Plaquenil) 200 mg PO BID [facility] Last Admin: 12/14/16 09:13 Dose: 200 mg Meropenem 500 mg/ Sodium (Chloride) 100 mls @ 100 mls/hr IVPB Q8 [facility] PRN Reason: Protocol Last Admin: 12/14/16 09:12 Dose: 100 mls/hr Meclizine HCl (Antivert) 25 mg PO TID PRN PRN Reason: Dizziness Methotrexate (Methotrexate) 15 mg PO SUN [facility] PRN Reason: Protocol Last Admin: 12/14/16 09:09 Dose: 15 mg Methylprednisolone (Solu-Medrol) 30 mg IVP Q12 [facility] Last Admin: 12/14/16 09:13 Dose: 30 mg Metoprolol Succinate (Toprol Xl) 25 mg PO DAILY [facility] Pantoprazole Sodium (Protonix Ec Tab) 40 mg PO DAILY [facility] Last Admin: 12/14/16 09:12 Dose: 40 mg Promethazine HCl/Codeine (Phenergan/Codeine Oral Syrup) 10 ml PO Q4H PRN PRN Reason: Cough Last Admin: 12/09/16 11:58 Dose: 10 ml Tamsulosin HCl (Flomax) 0.4 mg PO HS [facility] Last Admin: 12/13/16 21:26 Dose: 0.4 mg Ticagrelor (Brilinta) 90 mg PO BID [facility] Last Admin: 12/14/16 09:09 Dose: 90 mg Zolpidem Tartrate (Ambien) 10 mg PO HS [facility] Last Admin: 12/13/16 22:17 Dose: 10 mg - Labs Labs: 12/13/16 06:00 12/12/16 14:10 - Constitutional Appears: No Acute Distress - Head Exam Head Exam: NORMAL INSPECTION - Eye Exam Eye Exam: PERRL - ENT Exam ENT Exam: Normal Exam - Neck Exam Neck Exam: Normal Inspection - Respiratory Exam Respiratory Exam: Decreased Breath Sounds (at bases), Rhonchi (few at bases) - Cardiovascular Exam Cardiovascular Exam: REGULAR RHYTHM - GI/Abdominal Exam GI & Abdominal Exam: Soft, Normal Bowel Sounds - Extremities Exam Extremities Exam: Normal Inspection - Back Exam Back Exam: NORMAL INSPECTION - Neurological Exam Neurological Exam: Alert, Oriented x3. absent: Motor Sensory Deficit - Psychiatric Exam Psychiatric exam: Normal Affect, Normal Mood - Skin Skin Exam: Warm Assessment and Plan (1) MRSA pneumonia Status: Acute (2) COPD exacerbation Status: Acute (3) RA (rheumatoid arthritis) Status: Chronic (4) HTN (hypertension) Status: Chronic (5) CAD (coronary artery disease) Status: Chronic (6) Depression Status: Acute (7) Anxiety Status: Acute (8) Chest pain Status: Acute - Assessment and Plan (Free Text) Plan: Sputum C-S= Enterobacter Cloacae Ssp Cloac. As per ID, Possible contamination , repeat Sputum C-S
[2016-12-14] MEDS: Metoprolol Succinate 25 mg XL Tab PO SCH (17:10)
[2016-12-15] MEDS: Meropenem 500 MG in Sodium Chloride 0.9% 100 ML IVPB SCH ×3 (00:07→17:24)
[2016-12-15] MEDS: Albuterol-Ipratrop 3 mg / 0.5 (3 ml) UD INH SCH ×6 (05:00→22:59)
[2016-12-15] MEDS: MethylPREDNISolone 40 mg Vial IVP SCH (08:52)
[2016-12-15] MEDS: Metoprolol Succinate 25 mg XL Tab PO SCH (08:53)
[2016-12-15] MEDS: Pantoprazole 40 mg EC Tab PO SCH (08:53)
--- NOTE | 2016-12-15 17:06 | CP.PCM.PN ---
Subjective - Date & Time of Evaluation Date of Evaluation: 12/15/16 Time of Evaluation: 10:00 - Subjective Subjective: F/U MRSA PNA No cough, no SOB, no chest congestion. Objective - Vital Signs/Intake and Output Vital Signs (last 24 hours): Temp Pulse Resp BP Pulse Ox 97.7 F 61 20 117/75 97 12/15/16 16:35 12/15/16 16:35 12/15/16 16:35 12/15/16 16:35 12/15/16 16:35 - Medications Medications: Current Medications Albuterol/Ipratropium (Duoneb 3 Mg/0.5 Mg (3 Ml) Ud) 3 ml INH RQ4 [facility] Last Admin: 12/15/16 15:36 Dose: 3 ml Amitriptyline HCl (Elavil) 10 mg PO HS [facility] Last Admin: 12/14/16 21:43 Dose: 10 mg Aspirin (Ecotrin) 81 mg PO DAILY [facility] Last Admin: 12/15/16 08:52 Dose: 81 mg Atorvastatin Calcium (Lipitor) 40 mg PO HS [facility] Last Admin: 12/14/16 21:43 Dose: 40 mg Folic Acid (Folic Acid) 1 mg PO DAILY [facility] Last Admin: 12/15/16 08:52 Dose: 1 mg Hydroxychloroquine Sulfate (Plaquenil) 200 mg PO BID [facility] Last Admin: 12/15/16 08:53 Dose: 200 mg Meropenem 500 mg/ Sodium (Chloride) 100 mls @ 100 mls/hr IVPB Q8 [facility] PRN Reason: Protocol Last Admin: 12/15/16 08:56 Dose: 100 mls/hr Meclizine HCl (Antivert) 25 mg PO TID PRN PRN Reason: Dizziness Methotrexate (Methotrexate) 15 mg PO SUN [facility] PRN Reason: Protocol Last Admin: 12/14/16 09:09 Dose: 15 mg Methylprednisolone (Solu-Medrol) 30 mg IVP DAILY [facility] Metoprolol Succinate (Toprol Xl) 25 mg PO DAILY [facility] Last Admin: 12/15/16 08:53 Dose: 25 mg Pantoprazole Sodium (Protonix Ec Tab) 40 mg PO DAILY [facility] Last Admin: 12/15/16 08:53 Dose: 40 mg Promethazine HCl/Codeine (Phenergan/Codeine Oral Syrup) 10 ml PO Q4H PRN PRN Reason: Cough Last Admin: 12/09/16 11:58 Dose: 10 ml Tamsulosin HCl (Flomax) 0.4 mg PO HS [facility] Last Admin: 12/14/16 21:43 Dose: 0.4 mg Ticagrelor (Brilinta) 90 mg PO BID [facility] Last Admin: 12/15/16 08:52 Dose: 90 mg Zolpidem Tartrate (Ambien) 10 mg PO HS [facility] Last Admin: 12/14/16 21:43 Dose: 10 mg - Labs Labs: 12/13/16 06:00 12/12/16 14:10 - Constitutional Appears: No Acute Distress, Chronically Ill - Head Exam Head Exam: NORMAL INSPECTION - Eye Exam Eye Exam: PERRL - ENT Exam ENT Exam: Normal Exam - Neck Exam Neck Exam: Normal Inspection - Respiratory Exam Respiratory Exam: Decreased Breath Sounds (at bases), Rhonchi (few scattered at bases) - Cardiovascular Exam Cardiovascular Exam: REGULAR RHYTHM - GI/Abdominal Exam GI & Abdominal Exam: Soft, Normal Bowel Sounds - Extremities Exam Extremities Exam: Normal Inspection - Back Exam Back Exam: NORMAL INSPECTION - Neurological Exam Neurological Exam: Alert, Oriented x3. absent: Motor Sensory Deficit - Psychiatric Exam Psychiatric exam: Normal Affect, Normal Mood - Skin Skin Exam: Warm Assessment and Plan (1) MRSA pneumonia Status: Acute (2) COPD exacerbation Status: Acute (3) RA (rheumatoid arthritis) Status: Chronic (4) HTN (hypertension) Status: Chronic (5) CAD (coronary artery disease) Status: Chronic (6) Depression Status: Acute (7) Anxiety Status: Acute (8) Chest pain Status: Acute - Assessment and Plan (Free Text) Plan: f/u Sputum C-S, taper Steroids, continue Merrem and rest of Tx.
[2016-12-16] MEDS: Meropenem 500 MG in Sodium Chloride 0.9% 100 ML IVPB SCH ×2 (00:04→09:18)
[2016-12-16] MEDS: Albuterol-Ipratrop 3 mg / 0.5 (3 ml) UD INH SCH ×5 (04:29→19:11)
[2016-12-16] MEDS ORDERED: MethylPREDNISolone 40 mg Vial IVP SCH (09:00)
[2016-12-16] MEDS: Pantoprazole 40 mg EC Tab PO SCH (09:11)
[2016-12-16] MEDS: Metoprolol Succinate 25 mg XL Tab PO SCH (09:11)
--- NOTE | 2016-12-16 15:26 | CP.PCM.PN ---
Subjective - Date & Time of Evaluation Date of Evaluation: 12/16/16 Time of Evaluation: 10:30 - Subjective Subjective: F/U MRSA PNA no cough , no SOB . no chest congestion , no GREEN Objective - Vital Signs/Intake and Output Vital Signs (last 24 hours): Temp Pulse Resp BP Pulse Ox 97.9 F 77 20 112/72 97 12/16/16 08:20 12/16/16 09:11 12/16/16 08:20 12/16/16 09:11 12/16/16 08:20 - Medications Medications: Current Medications Albuterol/Ipratropium (Duoneb 3 Mg/0.5 Mg (3 Ml) Ud) 3 ml INH RQ4 [facility] Last Admin: 12/16/16 12:18 Dose: 3 ml Amitriptyline HCl (Elavil) 10 mg PO HS [facility] Last Admin: 12/15/16 21:35 Dose: 10 mg Aspirin (Ecotrin) 81 mg PO DAILY [facility] Last Admin: 12/16/16 09:11 Dose: 81 mg Atorvastatin Calcium (Lipitor) 40 mg PO HS [facility] Last Admin: 12/15/16 21:35 Dose: 40 mg Fluconazole (Diflucan) 100 mg PO DAILY [facility] PRN Reason: Protocol Last Admin: 12/16/16 13:43 Dose: 100 mg Folic Acid (Folic Acid) 1 mg PO DAILY [facility] Last Admin: 12/16/16 09:11 Dose: 1 mg Hydroxychloroquine Sulfate (Plaquenil) 200 mg PO BID [facility] Last Admin: 12/16/16 09:11 Dose: 200 mg Meropenem 500 mg/ Sodium (Chloride) 100 mls @ 100 mls/hr IVPB Q8 [facility] PRN Reason: Protocol Last Admin: 12/16/16 09:18 Dose: 100 mls/hr Meclizine HCl (Antivert) 25 mg PO TID PRN PRN Reason: Dizziness Methotrexate (Methotrexate) 15 mg PO SUN [facility] PRN Reason: Protocol Last Admin: 12/14/16 09:09 Dose: 15 mg Metoprolol Succinate (Toprol Xl) 25 mg PO DAILY [facility] Last Admin: 12/16/16 09:11 Dose: 25 mg Pantoprazole Sodium (Protonix Ec Tab) 40 mg PO DAILY [facility] Last Admin: 12/16/16 09:11 Dose: 40 mg Prednisone (Prednisone Tab) 25 mg PO DAILY [facility] Last Admin: 12/16/16 13:43 Dose: 25 mg Promethazine HCl/Codeine (Phenergan/Codeine Oral Syrup) 10 ml PO Q4H PRN PRN Reason: Cough Last Admin: 12/09/16 11:58 Dose: 10 ml Tamsulosin HCl (Flomax) 0.4 mg PO HS [facility] Last Admin: 12/15/16 21:35 Dose: 0.4 mg Ticagrelor (Brilinta) 90 mg PO BID [facility] Last Admin: 12/16/16 09:10 Dose: 90 mg Zolpidem Tartrate (Ambien) 10 mg PO HS [facility] Last Admin: 12/15/16 21:34 Dose: 10 mg - Labs Labs: 12/13/16 06:00 12/12/16 14:10 - Constitutional Appears: No Acute Distress, Chronically Ill - Head Exam Head Exam: NORMAL INSPECTION - Eye Exam Eye Exam: PERRL - ENT Exam ENT Exam: Normal Exam - Neck Exam Neck Exam: Normal Inspection - Respiratory Exam Respiratory Exam: Decreased Breath Sounds (at bases) - Cardiovascular Exam Cardiovascular Exam: REGULAR RHYTHM - GI/Abdominal Exam GI & Abdominal Exam: Soft, Normal Bowel Sounds - Extremities Exam Extremities Exam: Normal Inspection - Back Exam Back Exam: NORMAL INSPECTION - Neurological Exam Neurological Exam: Alert, Oriented x3. absent: Motor Sensory Deficit - Psychiatric Exam Psychiatric exam: Normal Affect, Normal Mood - Skin Skin Exam: Warm Assessment and Plan (1) MRSA pneumonia Status: Acute (2) COPD exacerbation Status: Acute (3) RA (rheumatoid arthritis) Status: Chronic (4) HTN (hypertension) Status: Chronic (5) CAD (coronary artery disease) Status: Chronic (6) Depression Status: Acute (7) Anxiety Status: Acute (8) Chest pain Status: Acute - Assessment and Plan (Free Text) Plan: Taper steroid to prednisone , sputum C-S yeast awaiting final report, off Merren, continue rest of treatment , CXR
[2016-12-17] MEDS: Albuterol-Ipratrop 3 mg / 0.5 (3 ml) UD INH SCH ×7 (00:21→23:22)
[2016-12-17] MEDS: Metoprolol Succinate 25 mg XL Tab PO SCH (09:20)
[2016-12-17] MEDS: Pantoprazole 40 mg EC Tab PO SCH (09:25)
--- NOTE | 2016-12-17 12:09 | RAD ---
HISTORY: COMPARISON: 12/12/2016. TECHNIQUE: Chest PA and lateral FINDINGS: LINES AND TUBES: None. LUNG AND PLEURA: The lungs are hyperinflated and there is peribronchial thickening with chronic changes in both lungs. There are also prominent chronic interstitial markings in both lungs. No focal consolidation. HEART AND MEDIASTINUM: The heart is not enlarged. The hilar and mediastinal contours are within normal limits. SKELETAL STRUCTURES: The bony structures are within normal limits for the patient's age. VISUALIZED UPPER ABDOMEN: Normal. OTHER FINDINGS: None. IMPRESSION: No active pulmonary disease. COPD and chronic interstitial thickening in both lungs.
--- NOTE | 2016-12-17 12:12 | CP.PCM.PN ---
Subjective - Date & Time of Evaluation Date of Evaluation: 12/17/16 Time of Evaluation: 11:10 - Subjective Subjective: F/U MRSA PNA no Cough , no SOB , no chest congestion Objective - Vital Signs/Intake and Output Vital Signs (last 24 hours): Temp Pulse Resp BP Pulse Ox 97.3 F L 68 20 101/64 100 12/17/16 08:03 12/17/16 09:20 12/17/16 08:03 12/17/16 09:20 12/17/16 08:03 - Medications Medications: Current Medications Albuterol/Ipratropium (Duoneb 3 Mg/0.5 Mg (3 Ml) Ud) 3 ml INH RQ4 [facility] Last Admin: 12/17/16 11:40 Dose: 3 ml Amitriptyline HCl (Elavil) 10 mg PO HS [facility] Last Admin: 12/16/16 21:51 Dose: 10 mg Aspirin (Ecotrin) 81 mg PO DAILY [facility] Last Admin: 12/17/16 09:25 Dose: 81 mg Atorvastatin Calcium (Lipitor) 40 mg PO HS [facility] Last Admin: 12/16/16 21:51 Dose: 40 mg Fluconazole (Diflucan) 100 mg PO DAILY [facility] PRN Reason: Protocol Last Admin: 12/17/16 09:20 Dose: 100 mg Folic Acid (Folic Acid) 1 mg PO DAILY [facility] Last Admin: 12/17/16 09:25 Dose: 1 mg Hydroxychloroquine Sulfate (Plaquenil) 200 mg PO BID [facility] Last Admin: 12/17/16 09:25 Dose: 200 mg Meropenem 500 mg/ Sodium (Chloride) 100 mls @ 100 mls/hr IVPB Q8 [facility] PRN Reason: Protocol Last Admin: 12/16/16 09:18 Dose: 100 mls/hr Meclizine HCl (Antivert) 25 mg PO TID PRN PRN Reason: Dizziness Methotrexate (Methotrexate) 15 mg PO SUN [facility] PRN Reason: Protocol Last Admin: 12/14/16 09:09 Dose: 15 mg Metoprolol Succinate (Toprol Xl) 25 mg PO DAILY [facility] Last Admin: 12/17/16 09:20 Dose: 25 mg Pantoprazole Sodium (Protonix Ec Tab) 40 mg PO DAILY [facility] Last Admin: 12/17/16 09:25 Dose: 40 mg Prednisone (Prednisone Tab) 25 mg PO DAILY [facility] Last Admin: 12/17/16 09:24 Dose: 25 mg Promethazine HCl/Codeine (Phenergan/Codeine Oral Syrup) 10 ml PO Q4H PRN PRN Reason: Cough Last Admin: 12/09/16 11:58 Dose: 10 ml Tamsulosin HCl (Flomax) 0.4 mg PO HS [facility] Last Admin: 12/16/16 21:51 Dose: 0.4 mg Ticagrelor (Brilinta) 90 mg PO BID [facility] Last Admin: 12/17/16 09:24 Dose: 90 mg Zolpidem Tartrate (Ambien) 10 mg PO HS [facility] Last Admin: 12/16/16 22:32 Dose: 10 mg - Labs Labs: 12/13/16 06:00 12/12/16 14:10 - Constitutional Appears: No Acute Distress, Chronically Ill - Head Exam Head Exam: NORMAL INSPECTION - Eye Exam Eye Exam: PERRL - ENT Exam ENT Exam: Normal Exam - Neck Exam Neck Exam: Normal Inspection - Respiratory Exam Respiratory Exam: Decreased Breath Sounds (at bases) - Cardiovascular Exam Cardiovascular Exam: REGULAR RHYTHM - GI/Abdominal Exam GI & Abdominal Exam: Soft, Normal Bowel Sounds - Extremities Exam Extremities Exam: Normal Inspection - Back Exam Back Exam: NORMAL INSPECTION - Neurological Exam Neurological Exam: Alert, Oriented x3. absent: Motor Sensory Deficit - Psychiatric Exam Psychiatric exam: Normal Affect, Normal Mood - Skin Skin Exam: Warm Assessment and Plan (1) MRSA pneumonia Status: Resolved (2) COPD exacerbation Status: Acute (3) RA (rheumatoid arthritis) Status: Chronic (4) HTN (hypertension) Status: Chronic (5) CAD (coronary artery disease) Status: Chronic (6) Depression Status: Acute (7) Anxiety Status: Acute (8) Chest pain Status: Resolved - Assessment and Plan (Free Text) Plan: CXR chronic changes , no active disease , sputum yeast awaiting final report continue rest of treatment
[2016-12-18] MEDS: Albuterol-Ipratrop 3 mg / 0.5 (3 ml) UD INH SCH ×3 (05:20→13:02)
[2016-12-18 07:11] LABS: BASO # 0.1 K/uL (0.0-0.2); BASO % 0.3 % (0.0-2.0); EOS # 0.1 K/uL (0.0-0.7); EOS % 0.8 % (0.0-4.0); HEMATOCRIT 39.9 % (35.0-51.0); LYMPH # 1.9 K/uL (1.0-4.3); LYMPH % 11.1 % (20.0-40.0); MEAN CELL VOLUME 87.9 fl (80.0-94.0); MEAN CORPUSCULAR HEMOGLOBIN 28.2 pg (27.0-31.0); MEAN CORPUSCULAR HGB CONC 32.1 g/dL (33.0-37.0); MEAN PLATELET VOLUME 9.4 fl (7.2-11.7); MONO # 1.7 K/uL (0.0-0.8); MONO % 9.6 % (0.0-10.0); NEUT # 13.8 K/uL (1.8-7.0); NEUT % 78.2 % (50.0-75.0); RED CELL DISTRIBUTION WIDTH 18.6 % (11.5-14.5); WHITE BLOOD COUNT 17.6 K/uL (4.8-10.8)
[2016-12-18 07:25] LABS: ALB/GLOB RATIO 1.3 (1.0-2.1); ALKALINE PHOSPHATASE 65 U/L (38-126); ALT/SGPT 30 U/L (21-72); AST/SGOT 20 U/L (17-59); BILIRUBIN,TOTAL 0.4 mg/dl (0.2-1.3); BLOOD UREA NITROGEN 21 mg/dl (9-20); CALCIUM 8.4 mg/dL (8.4-10.2); CARBON DIOXIDE 31 mmol/L (22-30); CHLORIDE 103 mmol/L (98-107); CHOLESTEROL 138 mg/dL (0-199); GFR AFRICAN-AMERICAN > 60; GLUCOSE,RANDOM 76 mg/dL (75-110); POTASSIUM 3.8 MMOL/L (3.6-5.0); SODIUM 142 mmol/l (132-148)
[2016-12-18 07:48] LABS: THYROID STIMULATING HORMONE 0.68 mIU/ML (0.46-4.68)
[2016-12-18 07:50] VITALS: PULSE 66; TEMP 97; O2SAT 97
[2016-12-18] MEDS: Pantoprazole 40 mg EC Tab PO SCH (08:14)
[2016-12-18] MEDS: Metoprolol Succinate 25 mg XL Tab PO SCH (08:14)
[2016-12-18 08:16] VITALS: BP 102/60
--- NOTE | 2016-12-18 13:11 | CP.PCM.PN ---
Subjective - Date & Time of Evaluation Date of Evaluation: 12/18/16 Time of Evaluation: 09:15 - Subjective Subjective: F/U COPD Exacerbation. Pt with no SOB, no GREEN, no chest congestion, no cough, no CP. Objective - Vital Signs/Intake and Output Vital Signs (last 24 hours): Temp Pulse Resp BP Pulse Ox 97.0 F L 66 20 102/60 97 12/18/16 07:49 12/18/16 08:14 12/18/16 07:49 12/18/16 08:14 12/18/16 07:49 - Medications Medications: Current Medications Albuterol/Ipratropium (Duoneb 3 Mg/0.5 Mg (3 Ml) Ud) 3 ml INH RQ4 [facility] Last Admin: 12/18/16 13:02 Dose: Not Given Amitriptyline HCl (Elavil) 10 mg PO HS [facility] Last Admin: 12/17/16 21:55 Dose: 10 mg Aspirin (Ecotrin) 81 mg PO DAILY [facility] Last Admin: 12/18/16 08:14 Dose: 81 mg Atorvastatin Calcium (Lipitor) 40 mg PO HS [facility] Last Admin: 12/17/16 21:55 Dose: 40 mg Fluconazole (Diflucan) 100 mg PO DAILY [facility] PRN Reason: Protocol Last Admin: 12/18/16 08:15 Dose: 100 mg Folic Acid (Folic Acid) 1 mg PO DAILY [facility] Last Admin: 12/18/16 08:14 Dose: 1 mg Hydroxychloroquine Sulfate (Plaquenil) 200 mg PO BID [facility] Last Admin: 12/18/16 08:14 Dose: 200 mg Meropenem 500 mg/ Sodium (Chloride) 100 mls @ 100 mls/hr IVPB Q8 [facility] PRN Reason: Protocol Last Admin: 12/16/16 09:18 Dose: 100 mls/hr Meclizine HCl (Antivert) 25 mg PO TID PRN PRN Reason: Dizziness Methotrexate (Methotrexate) 15 mg PO SUN [facility] PRN Reason: Protocol Last Admin: 12/14/16 09:09 Dose: 15 mg Metoprolol Succinate (Toprol Xl) 25 mg PO DAILY [facility] Last Admin: 12/18/16 08:14 Dose: 25 mg Pantoprazole Sodium (Protonix Ec Tab) 40 mg PO DAILY [facility] Last Admin: 12/18/16 08:14 Dose: 40 mg Prednisone (Prednisone Tab) 25 mg PO DAILY [facility] Last Admin: 12/18/16 08:14 Dose: 25 mg Promethazine HCl/Codeine (Phenergan/Codeine Oral Syrup) 10 ml PO Q4H PRN PRN Reason: Cough Last Admin: 12/09/16 11:58 Dose: 10 ml Tamsulosin HCl (Flomax) 0.4 mg PO HS [facility] Last Admin: 12/17/16 21:55 Dose: 0.4 mg Ticagrelor (Brilinta) 90 mg PO BID [facility] Last Admin: 12/18/16 08:13 Dose: 90 mg Zolpidem Tartrate (Ambien) 10 mg PO HS [facility] Last Admin: 12/17/16 21:55 Dose: 10 mg - Labs Labs: 12/18/16 06:10 12/18/16 06:10 - Constitutional Appears: No Acute Distress, Chronically Ill - Head Exam Head Exam: NORMAL INSPECTION - Eye Exam Eye Exam: PERRL - ENT Exam ENT Exam: Normal Exam - Neck Exam Neck Exam: Normal Inspection - Respiratory Exam Respiratory Exam: Decreased Breath Sounds (at bases) - Cardiovascular Exam Cardiovascular Exam: REGULAR RHYTHM - GI/Abdominal Exam GI & Abdominal Exam: Soft, Normal Bowel Sounds - Extremities Exam Extremities Exam: Normal Inspection - Back Exam Back Exam: NORMAL INSPECTION - Neurological Exam Neurological Exam: Alert, Oriented x3. absent: Motor Sensory Deficit - Psychiatric Exam Psychiatric exam: Normal Affect, Normal Mood - Skin Skin Exam: Warm Assessment and Plan (1) MRSA pneumonia Status: Resolved (2) COPD exacerbation Status: Acute (3) RA (rheumatoid arthritis) Status: Chronic (4) HTN (hypertension) Status: Chronic (5) CAD (coronary artery disease) Status: Chronic (6) Depression Status: Acute (7) Anxiety Status: Acute (8) Chest pain Status: Resolved - Assessment and Plan (Free Text) Plan: Sputun C-S Diflucan 100 od x 7 days, taper down Prednisone, continue rest of Tx. Pt improved and stable to be discharged, f/u in my office in a week.
== END 2016-12-18 13:10 | disposition home or self-care (01) | DRG 178 ==
LOC: H.TCU 14:56
PROVIDERS: ADMIT Internal Medicine Pulmonary Disease; ATTEND Internal Medicine Pulmonary Disease
PROC: 3E03329 Introduction of Other Anti-infective into Peripheral Vein, Percutaneous Approach (ICD-10-PCS; principal; 2016-12-08)
PROC: 3E0F73Z Introduction of Anti-inflammatory into Respiratory Tract, Via Natural or Artificial Opening (ICD-10-PCS; 2016-12-08)
PROC: F07Z9FZ Gait Training/Functional Ambulation Treatment using Assistive, Adaptive, Supportive or Protective Equipment (ICD-10-PCS; 2016-12-08)
PROC: F08Z4FZ Home Management Treatment using Assistive, Adaptive, Supportive or Protective Equipment (ICD-10-PCS; 2016-12-09)
PROC: F07M6FZ Therapeutic Exercise Treatment of Musculoskeletal System - Whole Body using Assistive, Adaptive, Supportive or Protective Equipment (ICD-10-PCS; 2016-12-09)
DX: J15.212 Pneumonia due to Methicillin resistant Staphylococcus aureus (principal); J44.0 Chronic obstructive pulmonary disease with (acute) lower respiratory infection; M06.9 Rheumatoid arthritis, unspecified; J44.1 Chronic obstructive pulmonary disease with (acute) exacerbation; I25.10 Atherosclerotic heart disease of native coronary artery without angina pectoris; K21.9 Gastro-esophageal reflux disease without esophagitis; I10 Essential (primary) hypertension; M81.0 Age-related osteoporosis without current pathological fracture; E78.00 Pure hypercholesterolemia, unspecified; F32.9 Major depressive disorder, single episode, unspecified; F41.9 Anxiety disorder, unspecified; G47.30 Sleep apnea, unspecified; F17.210 Nicotine dependence, cigarettes, uncomplicated; Z86.14 Personal history of Methicillin resistant Staphylococcus aureus infection; Z95.5 Presence of coronary angioplasty implant and graft; Z90.81 Acquired absence of spleen

== ENCOUNTER 2017-10-06 15:33 | Inpatient (IN) | payer MEDICARE, MEDICAID ==
[2017-10-06 15:33] VITALS: BMI 31.3
[2017-10-06] MEDS ORDERED: Albuterol-Ipratrop 3 mg / 0.5 (3 ml) UD INH STA (16:24)
--- NOTE | 2017-10-06 16:49 | ED PDOC ---
HPI: SOB/CHF/COPD Time Seen by Provider: 10/06/17 15:53 Chief Complaint (Nursing): Shortness Of Breath Chief Complaint (Provider): Shortness of Breath History Per: Patient History/Exam Limitations: no limitations Onset/Duration Of Symptoms: Days, Worse Since Current Symptoms Are (Timing): Still Present Additional Complaint(s): 71 year old male with a history of splenectomy and heart surgery with catheter presents to the ED for an evaluation of shortness of breath that is worsening for the past 2 days. He was referred to the ED by PMD for workup and treatment. Patient denies chest pain, nausea, vomiting or cough. PMD: Kareem Son Past Medical History Reviewed: Historical Data, Nursing Documentation, Vital Signs Vital Signs: Last Vital Signs Temp 97.4 F L 10/07/17 16:55 Pulse 80 10/07/17 16:55 Resp 20 10/07/17 16:55 BP 114/68 10/07/17 16:55 Pulse Ox 98 10/07/17 16:55 - Medical History PMH: Anemia, Anxiety, Arthritis (Osteoarthritis (severe)), Asthma, Benign Prostatic Hyperplasia, CAD, COPD, Depression, Emphysema, HTN, Hypercholesterolemia, Osteoporosis, Pneumonia, Rheumatoid Arthritis, Sleep Apnea Denies: HIV, Chronic Kidney Disease - Surgical History Surgical History: Coronary Stent (x2) - Family History Family History: States: [place] (father and brother), Hypertension, Other Other Family History: sister had breastectomy - Social History Current smoker - smoking cessation education provided: No Alcohol: None Drugs: Denies - Home Medications Home Medications: Ambulatory Orders Medication Instructions Recorded Folic Acid 1 mg PO DAILY 01/09/16 Tamsulosin [Flomax] 0.4 mg PO QPM 01/09/16 Atorvastatin [Lipitor] 40 mg PO HS 04/21/16 Methotrexate 7.5 mg PO SUN 07/16/16 Amitriptyline [Elavil] 40 mg PO HS 11/28/16 Hydroxychloroquine Sulfate 200 mg PO Q12 11/28/16 [Plaquenil] Leflunomide [Arava] 20 mg PO DAILY 11/28/16 Promethazine HCl/Codeine 10 mg PO Q4H PRN 11/28/16 [Prometh-Codein 6.25-10 mg/5 ml] Albuterol/Ipratropium [Duoneb 3 3 ml INH TID PRN 10/06/17 mg/0.5 mg (3 ml) UD] Budesonide/Formoterol Fumarate 2 puff IH Q12 10/06/17 [Symbicort 160-4.5 Mcg Inhaler] Calcium Carbonate/Vitamin D3 1 tab PO BID 10/06/17 [Calcium 500-Vit D3 400 Tablet] Ibuprofen [Motrin Tab] 800 mg PO Q6 PRN 10/06/17 Naloxegol Oxalate [Movantik] 25 mg PO DAILY PRN 10/06/17 Oxycodone HCl/Acetaminophen 1 tab PO Q6 PRN 10/06/17 [Endocet 10-325 mg Tablet] Ticagrelor [Brilinta] 60 mg PO Q12 10/06/17 Tiotropium [Spiriva] 18 mcg IH DAILY 10/06/17 Tofacitinib Citrate [Xeljanz Xr] 11 mg PO DAILY 10/06/17 - Allergies Allergies/Adverse Reactions: Allergies Allergy/AdvReac Type Severity Reaction Status Date / Time No Known Allergies Allergy Verified 10/06/17 15:36 Review of Systems ROS Statement: Except As Marked, All Systems Reviewed And Found Negative Cardiovascular: Negative for: Chest Pain Respiratory: Positive for: Shortness of Breath. Negative for: Cough Gastrointestinal: Negative for: Nausea, Vomiting Physical Exam - Reviewed Nursing Documentation Reviewed: Yes Vital Signs Reviewed: Yes - Physical Exam Appears: Positive for: Well, Non-toxic, No Acute Distress Head Exam: Positive for: ATRAUMATIC, NORMAL INSPECTION, NORMOCEPHALIC Skin: Positive for: Normal Color, Warm, Dry Eye Exam: Positive for: Normal appearance ENT: Positive for: Normal ENT Inspection (no JVD) Neck: Positive for: Normal Cardiovascular/Chest: Positive for: Regular Rate, Rhythm. Negative for: Murmur Respiratory: Positive for: Wheezing (bilateral expiratory with good air entry). Negative for: Rales, Stridor Back: Positive for: Normal Inspection Extremity: Positive for: Normal ROM. Negative for: Pedal Edema, Other (clubbing ) Neurologic/Psych: Positive for: Alert, Oriented (x3). Negative for: Motor/ Sensory Deficits - Laboratory Results Result Diagrams: 10/07/17 05:45 10/07/17 05:45 - ECG O2 Sat by Pulse Oximetry: 96 (RA) Pulse Ox Interpretation: Normal Medical Decision Making Medical Decision Making: Time: 1622 Initial Plan: --BMP --CBC w/ Differential --Duoneb 3mg/0.5MG (3ml) --SOLU-Medrol 125mg --Peak Flow Pre/post Treatment --Reevaluation Scribe Attestation: Documented by Levy Gutiérrez, acting as a scribe for Megan Britton MD Provider Scribe Attestation: All medical record entries made by the Scribe were at my direction and personally dictated by me. I have reviewed the chart and agree that the record accurately reflects my personal performance of the history, physical exam, medical decision making, and the department course for this patient. I have also personally directed, reviewed, and agree with the discharge instructions and disposition. Pt with acute COPD exacerbation. Pt treated in the ED with duonebs, magnesium, and solumedrol. Pt started on azithromycin. CXR showed diffuse bilateral infiltrate. Spoke with PMD Dr. Son and pt admitted. Pt informed of status. Disposition - Clinical Impression Clinical Impression: COPD (chronic obstructive pulmonary disease), COPD exacerbation - Disposition Disposition Time: 17:44 Condition: GUARDED
[2017-10-06] MEDS ORDERED: Albuterol-Ipratrop 3 mg / 0.5 (3 ml) UD ONE (17:00)
[2017-10-06 17:12] LABS: BASO # 0.2 K/uL (0.0-0.2); BASO % 1.2 % (0.0-2.0); EOS # 1.1 K/uL (0.0-0.7); EOS % 6.7 % (0.0-4.0); HEMOGLOBIN 12.4 g/dL (12.0-18.0); LYMPH # 3.4 K/uL (1.0-4.3); LYMPH % 20.8 % (20.0-40.0); MEAN CELL VOLUME 87.5 fl (80.0-94.0); MEAN CORPUSCULAR HEMOGLOBIN 28.8 pg (27.0-31.0); MEAN CORPUSCULAR HGB CONC 32.9 g/dL (33.0-37.0); MEAN PLATELET VOLUME 9.7 fl (7.2-11.7); MONO # 2.3 K/uL (0.0-0.8); NEUT # 9.3 K/uL (1.8-7.0); NEUT % 57.3 % (50.0-75.0); RBC 4.3 Mil/uL (4.40-5.90); RED CELL DISTRIBUTION WIDTH 15.2 % (11.5-14.5); WHITE BLOOD COUNT 16.3 K/uL (4.8-10.8)
[2017-10-06 17:31] LABS: CALCIUM 9.2 mg/dL (8.4-10.2); GFR NON-AFRICAN AMERICAN > 60
[2017-10-06 17:39] LABS: BLOOD UREA NITROGEN 22 mg/dl (9-20)
[2017-10-06] MEDS ORDERED: Azithromycin 500 MG in Sodium Chloride 0.9% 250 ML IVPB STA (17:45)
--- NOTE | 2017-10-06 18:42 | RAD ---
Date of service: 10/06/2017 HISTORY: possible admission COMPARISON: 12/17/2016 FINDINGS: LUNGS: Diffuse interstitial infiltrate. No focal consolidation. PLEURA: No significant pleural effusion identified, no pneumothorax apparent. CARDIOVASCULAR: Normal. OSSEOUS STRUCTURES: No significant abnormalities. VISUALIZED UPPER ABDOMEN: Normal. OTHER FINDINGS: None. IMPRESSION: Diffuse bilateral interstitial infiltrate. Cannot rule out alveolar opacities. Consider evaluation with CT chest.
[2017-10-06] MEDS ORDERED: Azithromycin 500 MG IV IVPB ONE (18:46)
[2017-10-06] MEDS ORDERED: Sodium Chloride 3% for Inhalation 4 ML VIAL.NEB IH PRN (22:48)
[2017-10-06] MEDS ORDERED: Oxycodone/Acetaminophen 5/325 mg Tab PO PRN (22:56)
[2017-10-06] MEDS ORDERED: Promethazine/Cod 6.25mg-10mg/5ml Syr UD PO PRN (22:56)
[2017-10-07] MEDS: Albuterol-Ipratrop 3 mg / 0.5 (3 ml) UD INH SCH ×6 (00:53→20:37)
[2017-10-07] MEDS ORDERED: methylPREDNISolone 40 MG in Sodium Chloride 0.9% 50 ML IVPB SCH (01:00)
[2017-10-07] MEDS: MethylPREDNISolone 40 mg Vial IVP SCH ×3 (01:59→16:27)
[2017-10-07 06:32] LABS: MEAN CELL VOLUME 87.3 fl (80.0-94.0); MEAN CORPUSCULAR HEMOGLOBIN 29.1 pg (27.0-31.0); MEAN CORPUSCULAR HGB CONC 33.3 g/dL (33.0-37.0); RBC 4.48 Mil/uL (4.40-5.90); WHITE BLOOD COUNT 9.9 K/uL (4.8-10.8)
[2017-10-07 07:07] LABS: ALB/GLOB RATIO 1.2 (1.0-2.1); ALBUMIN 4.1 g/dL (3.5-5.0); ALT/SGPT 23 U/L (21-72); AST/SGOT 34 U/L (17-59); BLOOD UREA NITROGEN 20 mg/dl (9-20); CALCIUM 9.6 mg/dL (8.4-10.2); GFR NON-AFRICAN AMERICAN > 60; HDL CHOLESTEROL 33 MG/DL (30-70)
[2017-10-07 07:10] LABS: URINE BILIRUBIN NEGATIVE (NEGATIVE); URINE BLOOD NEGATIVE (NEGATIVE); URINE CLARITY SLIGHTY-CLOUDY (Clear); URINE COLOR YELLOW (YELLOW); URINE GLUCOSE (UA) 50 mg/dL (Normal); URINE LEUKOCYTE ESTERASE NEG Leu/uL (Negative); URINE PROTEIN NEGATIVE (NEGATIVE); URINE UROBILINOGEN 0.2-1.0 mg/dL (0.2-1.0)
[2017-10-07 07:16] LABS: T4 8.53 ug/dl (5.5-11.0)
[2017-10-07 07:18] LABS: LDL CHOLESTEROL 67 mg/dL (0-129)
[2017-10-07] MEDS: Azithromycin 500 MG in Sodium Chloride 0.9% 250 ML IVPB SCH (09:19)
[2017-10-07] MEDS: Calcium-Vit D 500 mg-200 Units Tab UD PO SCH ×2 (09:20→16:28)
[2017-10-07 12:00] LABS: IMMUNOGLOBULIN G 781.8 mg/dL (700.0-1600.0); IMMUNOGLOBULIN M 170.3 mg/dL (40.0-230.0)
[2017-10-07] MEDS: Enoxaparin 40 mg Syringe SC SCH (12:38)
[2017-10-07] MEDS: Pantoprazole 40 mg EC Tab PO SCH (12:45)
[2017-10-07] MEDS ORDERED: Benzocaine/Menthol (Cepacol) Lozenge PO PRN (12:57)
--- NOTE | 2017-10-07 16:09 | CP.PCM.HP ---
History of Present Illness - History of Present Illness History of Present Illness: CC: SOB. 71 y/o M, PMHx COPD, Emphysema, CAD with Cardiac Stent x2, R/A, severe O/A. 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 Aggravated factor: Former Smoker. Pt denied: Fever, chills, n/v/d, abdominal pain, dysuria, hematuria, CP, palpitation, sick contact, recent travel out of [place]. Present on Admission - Present on Admission Any Indicators Present on Admission: No Review of Systems - Constitutional Constitutional: Weakness - EENT Eyes: Requires Corrective Lenses Ears: Other (negative) Nose/Mouth/Throat: Other (negative) - Cardiovascular Cardiovascular: Other (negative) - Respiratory Respiratory: Cough, Dyspnea - Gastrointestinal Gastrointestinal: Heartburn - Genitourinary Genitourinary: Other (negative) - Musculoskeletal Musculoskeletal: Arthralgias, Muscle Weakness (L/E) - Integumentary Integumentary: Other (negative) - Neurological Neurological: Other (negative) - Psychiatric Psychiatric: Other (negative) - Endocrine Endocrine: Other (negative) - Hematologic/Lymphatic Hematologic: Other (negative) Past Patient History - Infectious Disease Hx of Infectious Diseases: None - Past Medical History & Family History Past Medical History?: Yes Pertinent Family History: Father and brother: HTN, PA. - Past Social History Smoking Status: Former Smoker Alcohol: None Drugs: Denies Home Situation {Lives}: Alone - CARDIAC Hx Cardiac Disorders: Yes Hx Hypertension: Yes - PULMONARY Hx Respiratory Disorders: Yes Hx Chronic Obstructive Pulmonary Disease (COPD): Yes - NEUROLOGICAL Hx Neurological Disorder: No - HEENT Hx HEENT Problems: No Hx Cataracts: No (denies) - RENAL Hx Chronic Kidney Disease: No - ENDOCRINE/METABOLIC Hx Endocrine Disorders: No Hx Diabetes Mellitus Type 2: No - HEMATOLOGICAL/ONCOLOGICAL Hx Blood Disorders: Yes Hx Anemia: Yes Hx Human Immunodeficiency Virus (HIV): No - INTEGUMENTARY Hx Dermatological Problems: No - MUSCULOSKELETAL/RHEUMATOLOGICAL Hx Musculoskeletal Disorders: Yes Hx Arthritis: Yes (Osteoarthritis (severe)) Hx Falls: No Hx Osteoporosis: Yes Hx Rheumatoid Arthritis: Yes - GASTROINTESTINAL Hx Gastrointestinal Disorders: Yes Hx Gastroesophageal Reflux: Yes - GENITOURINARY/GYNECOLOGICAL Hx Genitourinary Disorders: Yes Hx Prostate Problems: Yes - PSYCHIATRIC Hx Psychophysiologic Disorder: Yes Hx Anxiety: Yes Hx Depression: Yes Hx Substance Use: No - SURGICAL HISTORY Hx Surgeries: Yes Hx Coronary Stent: Yes (x2) - ANESTHESIA Hx Anesthesia: Yes Hx Anesthesia Reactions: No Hx Malignant Hyperthermia: No Meds Allergies/Adverse Reactions: Allergies Allergy/AdvReac Type Severity Reaction Status Date / Time No Known Allergies Allergy Verified 10/06/17 15:36 Physical Exam - Constitutional Appears: No Acute Distress - Head Exam Head Exam: NORMAL INSPECTION - Eye Exam Eye Exam: PERRL - ENT Exam ENT Exam: Normal Oropharynx - Neck Exam Neck exam: Positive for: Normal Inspection - Respiratory Exam Respiratory Exam: Decreased Breath Sounds - Cardiovascular Exam Cardiovascular Exam: REGULAR RHYTHM - GI/Abdominal Exam GI & Abdominal Exam: Normal Bowel Sounds, Soft - Extremities Exam Extremities exam: Positive for: full ROM, normal inspection - Back Exam Back exam: NORMAL INSPECTION - Neurological Exam Neurological exam: Alert, Oriented x3 Additional comments: No motor/sensory deficit. - Psychiatric Exam Psychiatric exam: Normal Mood - Skin Skin Exam: Normal Color, Warm Results - Vital Signs Recent Vital Signs: Last Vital Signs Temp 97.5 F L 10/07/17 07:39 Pulse 87 10/07/17 07:39 Resp 19 10/07/17 07:39 BP 127/80 10/07/17 07:39 Pulse Ox 95 10/07/17 07:39 Reviewed JJose ManuelP - Labs Result Diagrams: 10/07/17 05:45 10/07/17 05:45 Labs: Laboratory Results - last 24 hr 10/06/17 10/06/17 10/07/17 17:06 17:06 05:45 WBC 16.3 H 9.9 RBC 4.30 L 4.48 Hgb 12.4 13.0 Hct 37.6 39.1 MCV 87.5 87.3 MCH 28.8 29.1 MCHC 32.9 L 33.3 RDW 15.2 H 15.0 H Plt Count 350 397 MPV 9.7 Neut % (Auto) 57.3 Lymph % (Auto) 20.8 Meagher % (Auto) 14.0 H Eos % (Auto) 6.7 H Baso % (Auto) 1.2 Neut # (Auto) 9.3 H Lymph # (Auto) 3.4 Meagher # (Auto) 2.3 H Eos # (Auto) 1.1 H Baso # (Auto) 0.2 Sodium 137 Potassium 5.2 H Chloride 104 Carbon Dioxide 26 Anion Gap 12 BUN 22 H Creatinine 1.1 Est GFR ( Amer) > 60 Est GFR (Non-Af Amer) > 60 Random Glucose 83 Calcium 9.2 Total Bilirubin AST ALT Alkaline Phosphatase Total Protein Albumin Globulin Albumin/Globulin Ratio Triglycerides Cholesterol LDL Cholesterol Direct HDL Cholesterol Thyroxine (T4) Urine Color Urine Clarity Urine pH Ur Specific [place] Urine Protein Urine Glucose (UA) Urine Ketones Urine Blood Urine Nitrate Urine Bilirubin Urine Urobilinogen Ur Leukocyte Esterase Urine RBC (Auto) Urine Microscopic WBC IgG IgM 10/07/17 10/07/17 10/07/17 05:45 05:45 06:30 WBC RBC Hgb Hct MCV MCH MCHC RDW Plt Count MPV Neut % (Auto) Lymph % (Auto) Meagher % (Auto) Eos % (Auto) Baso % (Auto) Neut # (Auto) Lymph # (Auto) Meagher # (Auto) Eos # (Auto) Baso # (Auto) Sodium 141 Potassium 4.2 Chloride 106 Carbon Dioxide 25 Anion Gap 14 BUN 20 Creatinine 1.0 Est GFR ( Amer) > 60 Est GFR (Non-Af Amer) > 60 Random Glucose 171 H Calcium 9.6 Total Bilirubin 0.5 AST 34 ALT 23 Alkaline Phosphatase 81 Total Protein 7.6 Albumin 4.1 Globulin 3.5 Albumin/Globulin Ratio 1.2 Triglycerides 76 D Cholesterol 133 LDL Cholesterol Direct 67 HDL Cholesterol 33 Thyroxine (T4) 8.53 Urine Color Yellow Urine Clarity Slighty-cloudy Urine pH 5.0 Ur Specific [place] 1.021 Urine Protein Negative Urine Glucose (UA) 50 Urine Ketones Negative Urine Blood Negative Urine Nitrate Negative Urine Bilirubin Negative Urine Urobilinogen 0.2-1.0 Ur Leukocyte Esterase Neg Urine RBC (Auto) 1 Urine Microscopic WBC 1 IgG 781.8 IgM 170.3 reviewed J.P. - Imaging and Cardiology CT scan - chest Status: Report reviewed by me (J.P.) Chest x-ray Status: Report reviewed by me (J.P.) Assessment & Plan (1) COPD exacerbation Status: Acute Priority: High (2) OA (osteoarthritis) Status: Chronic Priority: Medium (3) RA (rheumatoid arthritis) Status: Chronic Priority: Medium (4) Esophageal reflux Status: Acute Priority: Medium - Assessment and Plan (Free Text) Plan: F/U Blood C-S, Sptum C-S, U C-S, ABG, continue Zithromax, Rocephin, Solu-Medrol , Duoneb and rest of Tx. - Date & Time Date: 10/07/17 Time: 12:00
--- NOTE | 2017-10-07 16:30 | CT ---
Date of service: 10/07/2017 PROCEDURE: CT Chest without contrast HISTORY: xray follow up infiltrate COMPARISON: Plain radiograph from 10/06/2017. TECHNIQUE: Contiguous axial images were obtained through the chest without intravenous contrast enhancement. Sagittal and coronal reconstructions were performed. Radiation dose (DLP): 427.63 mGy-cm. This CT exam was performed using one or more of the following dose reduction techniques: Automated exposure control, adjustment of the mA and/or kV according to patient size, and/or use of iterative reconstruction technique. FINDINGS: LUNGS: The lungs are well inflated. There is peripheral honeycombing with upper lobe predominance. There are also increased peripheral reticular markings. No focal consolidation or mass. There are no endobronchial lesions. MEDIASTINUM: The aorta is not dilated. The heart is normal in size. No pericardial effusion. Stent graft in the left anterior descending coronary artery. No bulky mediastinal adenopathy. PLEURA: No pleural fluid. No pneumothorax. BONES: No fracture. No destructive lesion. UPPER ABDOMEN: Both adrenal glands are normal. No cholelithiasis. Simple cysts in the visualized kidneys. OTHER FINDINGS: The spleen is lobular and small in size. . 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 No active pulmonary disease. No evidence for lobar pneumonia.
[2017-10-08] MEDS: MethylPREDNISolone 40 mg Vial IVP SCH ×3 (00:21→17:46)
[2017-10-08] MEDS: Albuterol-Ipratrop 3 mg / 0.5 (3 ml) UD INH SCH ×7 (00:52→23:59)
[2017-10-08] MEDS: Calcium-Vit D 500 mg-200 Units Tab UD PO SCH ×2 (09:10→17:45)
[2017-10-08] MEDS: Enoxaparin 40 mg Syringe SC SCH ×2 (09:10→09:18)
[2017-10-08] MEDS: Pantoprazole 40 mg EC Tab PO SCH (09:11)
[2017-10-08] MEDS: Azithromycin 500 MG in Sodium Chloride 0.9% 250 ML IVPB SCH (09:13)
[2017-10-08 10:01] LABS: ABG ALLEN TEST YES; ARTERIAL BLOOD GAS HCO3 24.4 mmol/L (21-28); ARTERIAL BLOOD GAS HEMOGLOBIN 11.5 g/dL (11.7-17.4); ARTERIAL BLOOD GAS O2 CAPACITY 15.9 mL/dL (16-24); ARTERIAL BLOOD GAS O2 CONTENT 15.4 ML/dL (15-23); ARTERIAL BLOOD GAS O2 SAT 96.8 % (95-98); ARTERIAL BLOOD GAS PCO2 34 mm/Hg (35-45); ARTERIAL BLOOD GAS PH 7.44 (7.35-7.45); ARTERIAL BLOOD GAS PO2 79 mm/Hg (80-100); ARTERIAL BLOOD GAS TCO2 24.1 mmol/L (22-28)
--- NOTE | 2017-10-08 12:14 | CP.PCM.PN ---
Subjective - Subjective Subjective: Breathing better, occasional "dry" cough", no SOB , no GREEN Objective - Vital Signs/Intake and Output Vital Signs (last 24 hours): Temp Pulse Resp BP Pulse Ox 97.5 F L 76 19 100/68 97 10/08/17 07:34 10/08/17 07:34 10/08/17 07:34 10/08/17 07:34 10/08/17 07:34 - Medications Medications: Current Medications Albuterol/Ipratropium (Duoneb 3 Mg/0.5 Mg (3 Ml) Ud) 3 ml INH RQ4 [facility] Last Admin: 10/08/17 11:40 Dose: 3 ml Amitriptyline HCl (Elavil) 40 mg PO HS [facility] Last Admin: 10/07/17 21:37 Dose: 40 mg Atorvastatin Calcium (Lipitor) 40 mg PO HS [facility] Last Admin: 10/07/17 21:37 Dose: 40 mg Benzocaine/Menthol (Cepacol Sore Throat) 1 teagan PO Q4 PRN PRN Reason: Sore Throat Calcium/Vitamin D (Oyster Shell Calcium/Vitamin D 500 Mg-200 Iu) 1 tab PO BID [facility] Last Admin: 10/08/17 09:10 Dose: 1 tab Docusate Sodium (Colace) 100 mg PO BID [facility] Last Admin: 10/08/17 09:09 Dose: 100 mg Enoxaparin Sodium (Lovenox) 40 mg SC DAILY [facility] PRN Reason: Protocol Last Admin: 10/08/17 09:18 Dose: Not Given Folic Acid (Folic Acid) 1 mg PO DAILY [facility] Last Admin: 10/08/17 09:09 Dose: 1 mg Home Med (Tofacitinib Citrate [Xeljanz Xr]) 11 mg PO DAILY [facility] Last Admin: 10/08/17 09:13 Dose: 11 mg Home Med (Leflunomide [Arava]) 20 mg PO DAILY [facility] Last Admin: 10/08/17 09:09 Dose: 20 mg Hydroxychloroquine Sulfate (Plaquenil) 200 mg PO Q12 [facility] PRN Reason: Protocol Last Admin: 10/08/17 09:10 Dose: 200 mg Azithromycin 500 mg/ Sodium (Chloride) 250 mls @ 250 mls/hr IVPB DAILY [facility] PRN Reason: Protocol Last Admin: 10/08/17 09:13 Dose: 250 mls/hr Ceftriaxone Sodium 1 gm/ (Sodium Chloride) 100 mls @ 100 mls/hr IVPB DAILY [facility] PRN Reason: Protocol Last Admin: 10/08/17 09:12 Dose: 100 mls/hr Methylprednisolone (Solu-Medrol) 30 mg IVP Q8 [facility] Oxycodone/Acetaminophen (Percocet 5/325 Mg Tab) 1 tab PO Q6 PRN PRN Reason: Pain, moderate (4-7) Stop: 10/09/17 22:57 Pantoprazole Sodium (Protonix Ec Tab) 40 mg PO DAILY [facility] Last Admin: 10/08/17 09:11 Dose: 40 mg Promethazine HCl/Codeine (Phenergan/Codeine Oral Syrup) 10 ml PO Q6 PRN PRN Reason: Cough Sennosides (Senokot Tab) 8.6 mg PO HS [facility] Last Admin: 10/08/17 00:31 Dose: 8.6 mg Tamsulosin HCl (Flomax) 0.4 mg PO QPM [facility] Ticagrelor (Brilinta) 60 mg PO Q12 [facility] Last Admin: 10/08/17 09:08 Dose: 60 mg - Labs Labs: 10/07/17 05:45 10/07/17 05:45 - Constitutional Appears: No Acute Distress - Head Exam Head Exam: NORMAL INSPECTION - Eye Exam Eye Exam: PERRL - Neck Exam Neck Exam: Normal Inspection - Respiratory Exam Respiratory Exam: Decreased Breath Sounds (at bases) - Cardiovascular Exam Cardiovascular Exam: REGULAR RHYTHM - GI/Abdominal Exam GI & Abdominal Exam: Soft, Normal Bowel Sounds - Back Exam Back Exam: NORMAL INSPECTION - Neurological Exam Neurological Exam: Alert, CN II-XII Intact, Oriented x3. absent: Motor Sensory Deficit - Psychiatric Exam Psychiatric exam: Normal Affect, Normal Mood - Skin Skin Exam: Warm Assessment and Plan (1) COPD exacerbation Status: Acute (2) OA (osteoarthritis) Status: Chronic (3) RA (rheumatoid arthritis) Status: Chronic (4) Esophageal reflux Status: Acute - Assessment and Plan (Free Text) Plan: CT insterstitial Pulmonary fibrosis, no PNA, sputum G (neg) rods, f/u C-S, taper Solu Medro, continue DuoNeb, Levaquin
[2017-10-09 00:11] VITALS: TEMP 97.6
[2017-10-09] MEDS: MethylPREDNISolone 40 mg Vial IVP SCH ×2 (00:19→08:45)
[2017-10-09] MEDS: Albuterol-Ipratrop 3 mg / 0.5 (3 ml) UD INH SCH ×3 (04:33→11:54)
[2017-10-09 07:51] VITALS: BP 128/83; PULSE 75; RESP 20; O2SAT 98
[2017-10-09] MEDS: Pantoprazole 40 mg EC Tab PO SCH (08:44)
[2017-10-09] MEDS: Calcium-Vit D 500 mg-200 Units Tab UD PO SCH (08:44)
[2017-10-09] MEDS: Enoxaparin 40 mg Syringe SC SCH (08:45)
[2017-10-09] MEDS: Azithromycin 500 MG in Sodium Chloride 0.9% 250 ML IVPB SCH (08:46)
--- NOTE | 2017-10-09 11:26 | IP.NPCORE ---
COPD Progress Note - COPD Progress Note Spirometry Assessment Completed:: No Plan to assess at outpatient follow up: Yes Symptoms:: Increase in Dyspnea, Cough, Increase in sputum volume Initial CXR:: Yes Oxygen Saturation/Pulse Oximetry:: 98 ABG:: Yes Date:: 10/07/17 Nebulizers Q2-4 hrs:: Duonebs/Albuterol Therapy Antibiotics (Name/Dose/Frequency):: Rocephin/Zithromax Systemic Steroids w/ methylprednisolone Name/Dose/Frequency:: Yes Oxygen Delivery Method: Room Air
--- NOTE | 2017-10-09 12:30 | CP.PCM.DIS ---
Provider - Provider Date of Admission: 10/06/17 17:44 Attending physician: Kareem Son MD Diagnosis - Discharge Diagnosis (1) COPD exacerbation Status: Acute Priority: High (2) OA (osteoarthritis) Status: Chronic Priority: Medium (3) RA (rheumatoid arthritis) Status: Chronic Priority: Medium (4) Esophageal reflux Status: Acute Priority: Medium Hospital Course - Lab Results Lab Results: Micro Results 10/07/17 10:56 Blood-Venous Blood Culture - Preliminary NO GROWTH AFTER 48 HOURS 10/07/17 06:30 Sputum Induced Gram Stain - Final 10/07/17 06:30 Sputum Induced Sputum Culture - Final Klebsiella Pneumoniae Ssp Pneu 10/07/17 06:30 Urine,Clean Catch Urine Culture - Final No Growth (<1,000 CFU/ML) Most Recent Lab Values WBC 9.9 K/uL (4.8-10.8) 10/07/17 05:45 RBC 4.48 Mil/uL (4.40-5.90) 10/07/17 05:45 Hgb 13.0 g/dL (12.0-18.0) 10/07/17 05:45 Hct 39.1 % (35.0-51.0) 10/07/17 05:45 MCV 87.3 fl (80.0-94.0) 10/07/17 05:45 MCH 29.1 pg (27.0-31.0) 10/07/17 05:45 MCHC 33.3 g/dL (33.0-37.0) 10/07/17 05:45 RDW 15.0 % (11.5-14.5) H 10/07/17 05:45 Plt Count 397 K/uL (130-400) 10/07/17 05:45 MPV 9.7 fl (7.2-11.7) 10/06/17 17:06 Neut % (Auto) 57.3 % (50.0-75.0) 10/06/17 17:06 Lymph % (Auto) 20.8 % (20.0-40.0) 10/06/17 17:06 [place] % (Auto) 14.0 % (0.0-10.0) H 10/06/17 17:06 Eos % (Auto) 6.7 % (0.0-4.0) H 10/06/17 17:06 Baso % (Auto) 1.2 % (0.0-2.0) 10/06/17 17:06 Neut # (Auto) 9.3 K/uL (1.8-7.0) H 10/06/17 17:06 Lymph # (Auto) 3.4 K/uL (1.0-4.3) 10/06/17 17:06 [place] # (Auto) 2.3 K/uL (0.0-0.8) H 10/06/17 17:06 Eos # (Auto) 1.1 K/uL (0.0-0.7) H 10/06/17 17:06 Baso # (Auto) 0.2 K/uL (0.0-0.2) 10/06/17 17:06 pCO2 34 mm/Hg (35-45) L 10/07/17 11:52 pO2 79 mm/Hg (80-100) L 10/07/17 11:52 HCO3 24.4 mmol/L (21-28) 10/07/17 11:52 ABG pH 7.44 (7.35-7.45) 10/07/17 11:52 ABG Total CO2 24.1 mmol/L (22-28) 10/07/17 11:52 ABG O2 Saturation 96.8 % (95-98) 10/07/17 11:52 ABG O2 Content 15.4 ML/dL (15-23) 10/07/17 11:52 ABG Base Excess -0.6 mmol/L (-2.0-3.0) 10/07/17 11:52 ABG Hemoglobin 11.5 g/dL (11.7-17.4) L 10/07/17 11:52 ABG Carboxyhemoglobin 0.9 % (0.5-1.5) 10/07/17 11:52 POC ABG HHb (Measured) 3.1 % (0.0-5.0) 10/07/17 11:52 ABG Methemoglobin 1.3 % (0.0-3.0) 10/07/17 11:52 ABG O2 Capacity 15.9 mL/dL (16-24) L 10/07/17 11:52 [place] Test Yes 10/07/17 11:52 A-a O2 Difference 28.0 mm/Hg 10/07/17 11:52 Hgb O2 Saturation 94.7 % (95.0-98.0) L 10/07/17 11:52 FiO2 21.0 % 10/07/17 11:52 Blood Gas Comments 21% rt brachial 10/07/17 11:52 Crit Value Read Back N 10/07/17 11:52 Sodium 141 mmol/l (132-148) 10/07/17 05:45 Potassium 4.2 MMOL/L (3.6-5.0) 10/07/17 05:45 Chloride 106 mmol/L (98-107) 10/07/17 05:45 Carbon Dioxide 25 mmol/L (22-30) 10/07/17 05:45 Anion Gap 14 (10-20) 10/07/17 05:45 BUN 20 mg/dl (9-20) 10/07/17 05:45 Creatinine 1.0 mg/dl (0.8-1.5) 10/07/17 05:45 Est GFR ( Amer) > 60 10/07/17 05:45 Est GFR (Non-Af Amer) > 60 10/07/17 05:45 Random Glucose 171 mg/dL (75-110) H 10/07/17 05:45 Calcium 9.6 mg/dL (8.4-10.2) 10/07/17 05:45 Total Bilirubin 0.5 mg/dl (0.2-1.3) 10/07/17 05:45 AST 34 U/L (17-59) 10/07/17 05:45 ALT 23 U/L (21-72) 10/07/17 05:45 Alkaline Phosphatase 81 U/L (38-126) 10/07/17 05:45 Total Protein 7.6 G/DL (6.3-8.2) 10/07/17 05:45 Albumin 4.1 g/dL (3.5-5.0) 10/07/17 05:45 Globulin 3.5 gm/dL (2.2-3.9) 10/07/17 05:45 Albumin/Globulin Ratio 1.2 (1.0-2.1) 10/07/17 05:45 Triglycerides 76 mg/DL (0-149) D 10/07/17 05:45 Cholesterol 133 mg/dL (0-199) 10/07/17 05:45 LDL Cholesterol Direct 67 mg/dL (0-129) 10/07/17 05:45 HDL Cholesterol 33 MG/DL (30-70) 10/07/17 05:45 Thyroxine (T4) 8.53 ug/dl (5.5-11.0) 10/07/17 05:45 Urine Color Yellow (YELLOW) 10/07/17 06:30 Urine Clarity Slighty-cloudy (Clear) 10/07/17 06:30 Urine pH 5.0 (5.0-8.0) 10/07/17 06:30 Ur Specific [place] 1.021 (1.003-1.030) 10/07/17 06:30 Urine Protein Negative mg/dL (NEGATIVE) 10/07/17 06:30 Urine Glucose (UA) 50 mg/dL (Normal) 10/07/17 06:30 Urine Ketones Negative mg/dL (NEGATIVE) 10/07/17 06:30 Urine Blood Negative (NEGATIVE) 10/07/17 06:30 Urine Nitrate Negative (NEGATIVE) 10/07/17 06:30 Urine Bilirubin Negative (NEGATIVE) 10/07/17 06:30 Urine Urobilinogen 0.2-1.0 mg/dL (0.2-1.0) 10/07/17 06:30 Ur Leukocyte Esterase Neg Mian/uL (Negative) 10/07/17 06:30 Urine RBC (Auto) 1 /hpf (0-3) 10/07/17 06:30 Urine Microscopic WBC 1 /hpf (0-5) 10/07/17 06:30 IgG 781.8 mg/dL (700.0-1600.0) 10/07/17 05:45 IgM 170.3 mg/dL (40.0-230.0) 10/07/17 05:45 Discharge Exam - Head Exam Head Exam: NORMAL INSPECTION Discharge Plan - Follow Up Plan Condition: GUARDED Disposition: HOME/ ROUTINE Instructions: Exacerbation of COPD (DC) Additional Instructions: follow up with your primary MD 1 week Referrals: Kareem Son MD [Family Provider] -
== END 2017-10-09 14:55 | disposition home or self-care (01) | DRG 192 ==
LOC: H.ER 15:33 → H.ERHOLD 17:44 → H.MEDSURG1 20:49
PROVIDERS: ADMIT Internal Medicine Pulmonary Disease; ATTEND Internal Medicine Pulmonary Disease
PROC: 3E0F73Z Introduction of Anti-inflammatory into Respiratory Tract, Via Natural or Artificial Opening (ICD-10-PCS; principal; 2017-10-06)
DX: J44.1 Chronic obstructive pulmonary disease with (acute) exacerbation (principal); J84.10 Pulmonary fibrosis, unspecified; I25.10 Atherosclerotic heart disease of native coronary artery without angina pectoris; I10 Essential (primary) hypertension; E78.00 Pure hypercholesterolemia, unspecified; M06.9 Rheumatoid arthritis, unspecified; K21.9 Gastro-esophageal reflux disease without esophagitis; M81.0 Age-related osteoporosis without current pathological fracture; M19.90 Unspecified osteoarthritis, unspecified site; N40.0 Benign prostatic hyperplasia without lower urinary tract symptoms; G47.30 Sleep apnea, unspecified; F41.9 Anxiety disorder, unspecified; Z87.891 Personal history of nicotine dependence; Z95.5 Presence of coronary angioplasty implant and graft; Z79.51 Long term (current) use of inhaled steroids; Z87.01 Personal history of pneumonia (recurrent)

== ENCOUNTER 2017-12-30 13:14 | Inpatient (IN) | payer MEDICARE, MEDICAID ==
[2017-12-30 13:15] VITALS: BMI 31.3
[2017-12-30] MEDS ORDERED: Labetalol 5 mg/ml Inj 20ML IVP STA (14:04)
[2017-12-30] MEDS ORDERED: Labetalol 5mg/ml (4ml) IVP STA (14:26)
--- NOTE | 2017-12-30 14:28 | ED PDOC ---
Syncope/Near Syncope/Dizziness Time Seen by Provider: 12/30/17 13:51 Chief Complaint (Nursing): Dizziness/Lightheaded Chief Complaint (Provider): Dizziness/Lightheaded History Per: Patient History/Exam Limitations: no limitations Onset/Duration Of Symptoms: Hrs Current Symptoms Are (Timing): Still Present Additional Complaint(s): Damien Lopes is a 72 year old male with a past medical history of CAD, prostate disease, hypertension, hypercholesterolemia, and arthritis who is presenting to the ED for evaluation of dizziness onset earlier today. Patient states that he was taking the bus and started feeling dizzy, sweaty, and a little nauseous which prompted concern for elevated blood pressure and led to his ED visit. Of note, patient states that he has not needed to take blood pressure medications for the past few years and adds that he takes a pump for COPD. Patient admits that he saw Dr. Son a week or two ago and was told everything was okay including the blood pressure. He adds that he has slight shortness of breath but denies any chest pain or other discomfort. PMD: Kareem Son Past Medical History Reviewed: Historical Data, Nursing Documentation, Vital Signs Vital Signs: Last Vital Signs Temp 98.1 F 12/30/17 13:18 Pulse 88 12/30/17 14:13 Resp 12 12/30/17 14:13 BP 153/93 H 12/30/17 14:13 Pulse Ox 97 12/30/17 14:13 - Medical History PMH: Anemia, Anxiety, Arthritis, Asthma, Benign Prostatic Hyperplasia, CAD, COPD, Depression, Emphysema, HTN, Hypercholesterolemia, Osteoporosis, Pneumonia, Rheumatoid Arthritis, Sleep Apnea Denies: HIV, Chronic Kidney Disease - Surgical History Surgical History: Coronary Stent (x 2) - Family History Family History: States: [place] (father and brother), Hypertension - Social History Current smoker - smoking cessation education provided: No Ex-Smoker (has not smoked in the last 12 months): Yes Alcohol: None Drugs: Denies - Home Medications Home Medications: Ambulatory Orders Medication Instructions Recorded Folic Acid 1 mg PO DAILY 01/09/16 Tamsulosin [Flomax] 0.4 mg PO QPM 01/09/16 Atorvastatin [Lipitor] 40 mg PO HS 04/21/16 Methotrexate 7.5 mg PO SUN 07/16/16 Amitriptyline [Elavil] 40 mg PO HS 11/28/16 Hydroxychloroquine Sulfate 200 mg PO Q12 11/28/16 [Plaquenil] Leflunomide [Arava] 20 mg PO DAILY 11/28/16 Promethazine HCl/Codeine 10 mg PO Q4H PRN 11/28/16 [Prometh-Codein 6.25-10 mg/5 ml] Albuterol/Ipratropium [Duoneb 3 3 ml INH TID PRN 10/06/17 mg/0.5 mg (3 ml) UD] Budesonide/Formoterol Fumarate 2 puff IH Q12 10/06/17 [Symbicort 160-4.5 Mcg Inhaler] Calcium Carbonate/Vitamin D3 1 tab PO BID 10/06/17 [Calcium 500-Vit D3 400 Tablet] Ibuprofen [Motrin Tab] 800 mg PO Q6 PRN 10/06/17 Naloxegol Oxalate [Movantik] 25 mg PO DAILY PRN 10/06/17 Oxycodone HCl/Acetaminophen 1 tab PO Q6 PRN 10/06/17 [Endocet 10-325 mg Tablet] Ticagrelor [Brilinta] 60 mg PO Q12 10/06/17 Tiotropium [Spiriva] 18 mcg IH DAILY 10/06/17 Tofacitinib Citrate [Xeljanz Xr] 11 mg PO DAILY 10/06/17 Furosemide [Lasix] 40 mg PO DAILY 11/07/17 Azithromycin 250 mg PO DAILY #3 tablet 11/08/17 Methylprednisolone [Medrol Dose 4 mg PO ASDIR #21 mg 11/08/17 Pack (21 tabs)] - Allergies Allergies/Adverse Reactions: Allergies Allergy/AdvReac Type Severity Reaction Status Date / Time No Known Allergies Allergy Verified 10/06/17 15:36 Review of Systems ROS Statement: Except As Marked, All Systems Reviewed And Found Negative Constitutional: Positive for: Sweats Cardiovascular: Negative for: Chest Pain Respiratory: Positive for: Shortness of Breath Neurological: Positive for: Dizziness Physical Exam - Reviewed Nursing Documentation Reviewed: Yes Vital Signs Reviewed: Yes - Physical Exam Appears: Positive for: Non-toxic, No Acute Distress Head Exam: Positive for: ATRAUMATIC, NORMAL INSPECTION, NORMOCEPHALIC Skin: Positive for: Normal Color, Warm, Dry. Negative for: Diaphoresis Eye Exam: Positive for: EOMI, Normal appearance, PERRL ENT: Positive for: Normal ENT Inspection Neck: Positive for: Normal, Painless ROM, Supple Cardiovascular/Chest: Positive for: Regular Rate, Rhythm. Negative for: Murmur Respiratory: Positive for: Normal Breath Sounds. Negative for: Respiratory Distress Gastrointestinal/Abdominal: Positive for: Normal Exam, Soft. Negative for: Tenderness Back: Positive for: Normal Inspection. Negative for: L CVA Tenderness, R CVA Tenderness, Vertebral Tenderness Extremity: Positive for: Normal ROM. Negative for: Pedal Edema, Calf Tenderness, Deformity Neurologic/Psych: Positive for: Alert, Oriented. Negative for: Motor/Sensory Deficits - Laboratory Results Result Diagrams: 12/30/17 14:12 - ECG ECG Rhythm: Positive for: Normal QRS, Normal ST Segment, Sinus Rhythm Rate: 84 O2 Sat by Pulse Oximetry: 97 (RA) Pulse Ox Interpretation: Normal Medical Decision Making Medical Decision Making: Time: 14:04 Impression: Uncontrolled Hypertension Plan: --EKG--BMP --CBC --Trandate 20 mg IVP Scribe Attestation: Documented by, Paige Perdue acting as a scribe for Gail Villalobos MD. Provider Scribe Attestation: All medical record entries made by the Scribe were at my direction and personally dictated by me. I have reviewed the chart and agree that the record accurately reflects my personal performance of the history, physical exam, medical decision making, and the department course for this patient. I have also personally directed, reviewed, and agree with the discharge instructions and disposition. Disposition - Clinical Impression Clinical Impression: Dizziness - Patient ED Disposition Is Patient to be Admitted: Transfer of Care - Disposition Referrals: Kareem Son MD [Primary Care Provider] - Disposition: Transfer of Care Disposition Time: 14:51 Condition: FAIR Forms: [facility] (Sami) Print Language: [facility] Patient Signed Over To: Helen Wills Present On Arrival: None
[2017-12-30] MEDS ORDERED: Labetalol 5mg/ml (4ml) ONE (14:29)
[2017-12-30 14:44] LABS: BASO # 0.1 K/uL (0.0-0.2); BASO % 0.8 % (0.0-2.0); EOS # 0.3 K/uL (0.0-0.7); EOS % 2.1 % (0.0-4.0); HEMOGLOBIN 13.5 g/dL (12.0-18.0); LYMPH # 2.9 K/uL (1.0-4.3); LYMPH % 21.4 % (20.0-40.0); MEAN CELL VOLUME 92.1 fl (80.0-94.0); MEAN CORPUSCULAR HEMOGLOBIN 29.4 pg (27.0-31.0); MEAN CORPUSCULAR HGB CONC 31.9 g/dL (33.0-37.0); MEAN PLATELET VOLUME 10.3 fl (7.2-11.7); MONO # 1.6 K/uL (0.0-0.8); MONO % 12.2 % (0.0-10.0); NEUT # 8.5 K/uL (1.8-7.0); NEUT % 63.5 % (50.0-75.0); RBC 4.6 Mil/uL (4.40-5.90); WHITE BLOOD COUNT 13.4 K/uL (4.8-10.8)
[2017-12-30 14:45] LABS: BLOOD UREA NITROGEN 10 mg/dl (9-20); CALCIUM 9.8 mg/dL (8.4-10.2); GFR NON-AFRICAN AMERICAN > 60
--- NOTE | 2017-12-30 15:15 | ED PDOC ---
- Laboratory Results Result Diagrams: 01/01/18 10:25 12/31/17 04:25 - ECG O2 Sat by Pulse Oximetry: 97 (RA) Disposition - Clinical Impression Clinical Impression: Near syncope - POA Present On Arrival: None - Disposition Disposition: Admitted as In-Patient Disposition Time: 18:18 Condition: STABLE Addendum Addendum: 12/30/17 15:00 Pt signed out by Dr. Villalobos pending labs.
--- NOTE | 2017-12-30 16:16 | CT ---
Date of service: 12/30/2017 PROCEDURE: CT HEAD WITHOUT CONTRAST. HISTORY: Dizziness COMPARISON: 07/16/2016. TECHNIQUE: Axial computed tomography images were obtained through the head/brain without intravenous contrast. Radiation dose: Total exam DLP = 767.6 mGy-cm. This CT exam was performed using one or more of the following dose reduction techniques: Automated exposure control, adjustment of the mA and/or kV according to patient size, and/or use of iterative reconstruction technique. FINDINGS: HEMORRHAGE: No intracranial hemorrhage. BRAIN: There are mild chronic microangiopathic changes. There is no mass, mass effect or abnormal extra-axial fluid collection. There is no territorial infarction. The midline sagittal structures are normal. VENTRICLES: There is mild age-related global parenchymal volume loss and proportionate enlargement of the ventricles and cortical sulci. CALVARIUM: There is no calvarial fracture or extracranial soft tissue swelling. PARANASAL SINUSES: Predominantly clear. MASTOID AIR CELLS: Predominantly clear. OTHER FINDINGS: None. IMPRESSION: No acute intracranial abnormality.If there is a persistent focal neurologic deficit and an ongoing clinical concern for acute infarction, an MRI of the brain without intravenous contrast would be a more sensitive modality for evaluation of hyperacute/acute ischemic infarction. Mild chronic microangiopathic changes and mild age-related global parenchymal volume loss.
[2017-12-30 17:14] LABS: URINE BILIRUBIN NEGATIVE (NEGATIVE); URINE BLOOD NEGATIVE (NEGATIVE); URINE CLARITY CLEAR (Clear); URINE COLOR STRAW (YELLOW); URINE GLUCOSE (UA) NEG (Normal); URINE LEUKOCYTE ESTERASE NEG Leu/uL (Negative); URINE PROTEIN NEGATIVE (NEGATIVE); URINE UROBILINOGEN 0.2-1.0 mg/dL (0.2-1.0)
--- NOTE | 2017-12-30 18:38 | CARD ---
APPROVED REPORT Date of service: 12/30/2017 EKG Measurement Heart [id number] <Conclusion> Normal sinus rhythm Inferior infarct, age undetermined Abnormal ECG
[2017-12-31 06:00] LABS: HEMOGLOBIN 12.8 g/dL (12.0-18.0); MEAN CORPUSCULAR HEMOGLOBIN 29.7 pg (27.0-31.0); MEAN CORPUSCULAR HGB CONC 32.6 g/dL (33.0-37.0); RBC 4.31 Mil/uL (4.40-5.90); RED CELL DISTRIBUTION WIDTH 19.3 % (11.5-14.5); WHITE BLOOD COUNT 12.8 K/uL (4.8-10.8)
[2017-12-31 06:12] LABS: ALB/GLOB RATIO 1.4 (1.0-2.1); ALBUMIN 3.9 g/dL (3.5-5.0); ALT/SGPT 41 U/L (21-72); AST/SGOT 29 U/L (17-59); BLOOD UREA NITROGEN 12 mg/dl (9-20); CALCIUM 9.3 mg/dL (8.4-10.2); GFR NON-AFRICAN AMERICAN > 60; HDL CHOLESTEROL 44 MG/DL (30-70)
[2017-12-31 06:20] LABS: LDL CHOLESTEROL 67 mg/dL (0-129)
[2017-12-31 06:25] LABS: T4 8.22 ug/dl (5.5-11.0)
[2017-12-31] MEDS: Albuterol-Ipratrop 3 mg / 0.5 (3 ml) UD INH SCH ×3 (07:49→19:48)
[2017-12-31] MEDS: Metoprolol Succinate 25 mg XL Tab PO SCH (08:58)
[2017-12-31] MEDS ORDERED: LEFLUNOMIDE 20 MG PO SCH (09:00)
[2017-12-31] MEDS ORDERED: Gadodiamide 287 MG/ML VIAL (15ML) IV ONE (09:14)
--- NOTE | 2017-12-31 12:50 | US ---
Date of service: 12/31/2017 PROCEDURE: Duplex ultrasound of the carotid and vertebral arteries. HISTORY: near syncope COMPARISON: None available. TECHNIQUE: Grayscale and duplex Doppler evaluation of the cervical carotid and vertebral arteries were performed. The common carotid, carotid bifurcations and cervical ICA and proximal ECA were evaluated. The vertebral arteries were evaluated for gross patency and direction. FINDINGS: RIGHT CAROTID ARTERIES: Common Carotid Artery: Maximal flow velocity of 85.6 cm/s. Carotid Bifurcation: Heterogeneous plaque formation. Internal Carotid Artery:Heterogeneous plaque formation. Maximal flow velocity of 84.6 cm/s. External Carotid Artery (proximal branches): Maximal flow velocity of 7 8 cm/s. ICA/CCA Ratio: 1.0 LEFT CAROTID ARTERIES: Common Carotid Artery: Maximal flow velocity of 89.9 cm/s. Carotid Bifurcation: Heterogeneous plaque formation. Internal Carotid Artery:Heterogeneous plaque formation. Maximal flow velocity of 93.8 cm/s. External Carotid Artery (proximal branches): Maximal flow velocity of 98.6 cm/s. ICA/CCA Ratio: 1.0 VERTEBRAL ARTERIES: Right Vertebral Artery: Patent. Antegrade flow. Left Vertebral Artery: Patent. Antegrade flow. OTHER FINDINGS: Atherosclerotic calcification present. IMPRESSION: Right ICA degree of stenosis: Less than 50% Left ICA degree of stenosis: Less than 50% Reference Internal Carotid Artery (ICA) Peak Systolic Velocity (PSV) for above: 1. Less than 50% stenosis less than 125 cm/s peak systolic velocity 2. 50-69% stenosis 125-230cm/s peak systolic velocity 3. Greater than 70% but less than near occlusion greater than 230 cm/s peak systolic velocity
--- NOTE | 2017-12-31 12:59 | CP.PCM.CON ---
History of Present Illness - History of Present Illness History of Present Illness: Neurology Consultation Note: Mr. Lopes is a 72-year-old man, who was referred to me by Dr. Son, with a past medical history of CAD, prostate disease, hypertension, hypercholesterolemia, and rheumatoid arthritis, who presented to the ED after having an episode of dizziness, diaphoresis, and shortness of breath. He checked his BP and it was elevated to systolic 185 mm Hg. He described a feeling of the room spinning for several seconds. Neurology was consulted to assist with the management and care. Review of Systems - Constitutional Constitutional: As Per HPI - EENT Eyes: absent: As Per HPI, Blind Spots, Blurred Vision, Change in Vision, Decreased Night Vision, Diplopia, Discharge, Dry Eye, Exophthalmos, Floaters, Irritation, Itchy Eyes, Loss of Peripheral Vision, Pain, Photophobia, Requires Corrective Lenses, Sees Flashes, Spots in Vision, Tunnel Vision, Other Visual Disturbances, Loss of Vision, Other Ears: absent: As Per HPI, Decreased Hearing, Ear Discharge, Ear Pain, Tinnitus, Abnormal Hearing, Disequilibrium, Dizziness, Other Nose/Mouth/Throat: absent: As Per HPI, Epistaxis, Nasal Congestion, Nasal Discharge, Nasal Obstruction, Nasal Trauma, Nose Pain, Post Nasal Drip, Sinus Pain, Sinus Pressure, Bleeding Gums, Change in Voice, Dental Pain, Dry Mouth, Dysphagia, Halitosis, Hoarsness, Lip Swelling, Mouth Lesions, Mouth Pain, Odynophagia, Sore Throat, Throat Swelling, Tongue Swelling, Facial Pain, Neck Pain, Neck Mass, Other - Cardiovascular Cardiovascular: absent: As Per HPI, Acrocyanosis, Chest Pain, Chest Pain at Rest, Chest Pain with Activity, Claudication, Diaphoresis, Dyspnea, Dyspnea on Exertion, Edema, Irregular Heart Rhythm, Pain Radiating to Arm/Neck/Jaw, Leg Edema, Leg Ulcers, Lightheadedness, Orthopnea, Palpitations, Paroxysmal Nocturnal Dyspnea, Pedal Edema, Radiating Pain, Rapid Heart Rate, Slow Heart Rate, Syncope, Other - Respiratory Respiratory: absent: As Per HPI, Cough, Dyspnea, Hemoptysis, Dyspnea on Exertion, Wheezing, Snoring, Stridor, Pain on Inspiration, Chest Congestion, Excessive Mucous Production, Change in Mucous Color, Pain with Coughing, Other - Gastrointestinal Gastrointestinal: absent: As Per HPI, Abdominal Pain, Belching, Bloating, Change in Bowel Habits, Change in Stool Character, Coffee Ground Emesis, Constipation, Cramping, Diarrhea, Dyspepsia, Dysphagia, Early Satiety, Excessive Flatus, Fecal Incontinence, Heartburn, Hematemesis, Hematochezia, Loose Stools, Melena, Nausea, Odynophagia, Temesmus, Vomiting, Other - Genitourinary Genitourinary: absent: As Per HPI, Change in Urinary Stream, Difficulty Urinating, Dysuria, Flank Pain, Hematuria, Pyuria, Nocturia, Urinary Incontinence, Urinary Frequency, Urinary Hesitance, Urinary Urgency, Voiding Freq/Small Amts, Freq UTI, Hx Renal/Bladder Calculi, Hx /Renal Surgery, Bladder Distension, Other - Musculoskeletal Musculoskeletal: absent: As Per HPI, Abnormal Gait, Arthralgias, Atrophy, Back Pain, Deformity, Joint Swelling, Limited Range of Motion, Loss of Height, Muscle Cramps, Muscle Weakness, Myalgias, Neck Pain, Numbness, Radiating Pain into Limb, Stiffness, Tingling, Other - Integumentary Integumentary: absent: As Per HPI, Acne, Alopecia, Bleeding Lesions, Change in Hair, Change in Nails, Change in Pigmentation, Changing Lesions, Dry Skin, Erythema, Furuncle, Hirsutism, Lesions, New Lesions, Non-Healing Lesions, Photosensitivity, Pruritus, Rash, Skin Pain, Skin Ulcer, Sores, Striae, Swelli ng, Unusual Bruising, Wounds, Jaundice, Other - Neurological Neurological: As Per HPI - Psychiatric Psychiatric: absent: As Per HPI, Abnormal Sleep Pattern, Anhedonia, Anxiety, Auditory Hallucinations, Behavioral Changes, Change in Appetite, Change in Libido, Confusion, Depression, Difficulty Concentrating, Hallucinations, Homicidal Ideation, Hopelessness, Irritability, Memory Loss, Mood Swings, Panic Attacks, Paranoia, Suicidal Ideation, Visual Hallucinations, Tactile Hallucinations, Other - Endocrine Endocrine: absent: As Per HPI, Change in Body Appearance, Change in Libido, Cold Intolorance, Deepening of Voice, Excessive Sweating, Fatigue, Flushing, Heat Intolorance, Increase in Ring/Shoe/Hat Size, Palpitations, Polydipsia, Polyphagia, Polyuria, Other Past Patient History - Infectious Disease Hx of Infectious Diseases: None - Past Medical History & Family History Past Medical History?: Yes - Past Social History Smoking Status: Former Smoker - CARDIAC Hx Hypercholesterolemia: Yes Hx Hypertension: Yes - PULMONARY Hx Asthma: Yes Hx Chronic Obstructive Pulmonary Disease (COPD): Yes Hx Emphysema: Yes Hx Pneumonia: Yes Hx Sleep Apnea: Yes - NEUROLOGICAL Hx Neurological Disorder: No Other/Comment: Carotid Stenosi- ?? as reported by patient - HEENT Hx HEENT Problems: No Hx Cataracts: Yes (Right eye catarct Sx) - RENAL Hx Chronic Kidney Disease: No - ENDOCRINE/METABOLIC Hx Endocrine Disorders: No Hx Diabetes Mellitus Type 2: No - HEMATOLOGICAL/ONCOLOGICAL Hx Anemia: Yes Hx Human Immunodeficiency Virus (HIV): No - INTEGUMENTARY Hx Dermatological Problems: No - MUSCULOSKELETAL/RHEUMATOLOGICAL Hx Arthritis: Yes Hx Falls: Yes Hx Osteoporosis: Yes Hx Rheumatoid Arthritis: Yes - GASTROINTESTINAL Hx Gastrointestinal Disorders: Yes Hx Gastroesophageal Reflux: Yes - GENITOURINARY/GYNECOLOGICAL Hx Genitourinary Disorders: Yes Hx Prostate Problems: Yes (BPH) - PSYCHIATRIC Hx Anxiety: Yes Hx Depression: Yes Hx Substance Use: No - SURGICAL HISTORY Hx Coronary Stent: Yes (x 2) - ANESTHESIA Hx Anesthesia: Yes Hx Anesthesia Reactions: No Hx Malignant Hyperthermia: No Meds Allergies/Adverse Reactions: Allergies Allergy/AdvReac Type Severity Reaction Status Date / Time No Known Allergies Allergy Verified 10/06/17 15:36 - Medications Medications: Current Medications Albuterol/Ipratropium (Duoneb 3 Mg/0.5 Mg (3 Ml) Ud) 3 ml INH RTID [facility] Last Admin: 12/31/17 07:49 Dose: 3 ml Amitriptyline HCl (Elavil) 40 mg PO [facility] Last Admin: 12/31/17 00:02 Dose: 40 mg Atorvastatin Calcium (Lipitor) 40 mg PO [facility] Last Admin: 12/31/17 00:03 Dose: 40 mg Folic Acid (Folic Acid) 1 mg PO DAILY [facility] Last Admin: 12/31/17 08:58 Dose: 1 mg Home Med (Leflunomide [Arava]) 20 mg PO DAILY [facility] Hydroxychloroquine Sulfate (Plaquenil) 200 mg PO Q12 [facility]; Protocol Last Admin: 12/31/17 08:59 Dose: 200 mg Methotrexate (Methotrexate) 7.5 mg PO SUN [facility]; Protocol Metoprolol Succinate (Toprol Xl) 25 mg PO DAILY [facility] Last Admin: 11/15/18 08:58 Dose: 25 mg Tamsulosin HCl (Flomax) 0.4 mg PO [facility] Last Admin: 12/31/17 00:03 Dose: 0.4 mg Ticagrelor (Brilinta) 60 mg PO BID [facility] Last Admin: 12/31/17 08:57 Dose: 60 mg Physical Exam - Constitutional Appears: Well - Head Exam Head Exam: ATRAUMATIC, NORMAL INSPECTION, NORMOCEPHALIC - Eye Exam Eye Exam: EOMI, Normal appearance, PERRL - ENT Exam ENT Exam: Mucous Membranes Moist, Normal Exam - Neck Exam Neck exam: Positive for: Normal Inspection - Respiratory Exam Respiratory Exam: Clear to Auscultation Bilateral, NORMAL BREATHING PATTERN - Cardiovascular Exam Cardiovascular Exam: REGULAR RHYTHM, +S1, +S2 - GI/Abdominal Exam GI & Abdominal Exam: Normal Bowel Sounds, Soft. absent: Tenderness - Rectal Exam Rectal Exam: Deferred - Extremities Exam Extremities exam: Positive for: normal inspection - Back Exam Back exam: NORMAL INSPECTION - Neurological Exam Neurological exam: Alert, CN II-XII Intact, Normal Gait, Oriented x3, Reflexes Normal - Psychiatric Exam Psychiatric exam: Normal Affect, Normal Mood - Skin Skin Exam: Dry, Intact, Normal Color, Warm Results - Vital Signs Recent Vital Signs: Last Vital Signs Temp 97.5 F L 12/31/17 08:00 Pulse 86 12/31/17 09:00 Resp 18 12/31/17 08:00 BP 106/79 12/31/17 08:58 Pulse Ox 96 12/31/17 08:00 - Labs Result Diagrams: 12/31/17 04:25 12/31/17 04:25 Labs: Laboratory Results - last 24 hr 12/30/17 12/30/17 12/30/17 13:35 14:12 14:12 WBC 13.4 H RBC 4.60 Hgb 13.5 Hct 42.4 MCV 92.1 D MCH 29.4 MCHC 31.9 L RDW 19.0 H Plt Count 342 D MPV 10.3 Neut % (Auto) 63.5 Lymph % (Auto) 21.4 [place] % (Auto) 12.2 H Eos % (Auto) 2.1 Baso % (Auto) 0.8 Neut # (Auto) 8.5 H Lymph # (Auto) 2.9 [place] # (Auto) 1.6 H Eos # (Auto) 0.3 Baso # (Auto) 0.1 ESR Sodium 138 Potassium 4.6 Chloride 103 Carbon Dioxide 27 Anion Gap 13 BUN 10 Creatinine 0.9 Est GFR ( Amer) > 60 Est GFR (Non-Af Amer) > 60 POC Glucose (mg/dL) 82 Random Glucose 80 Calcium 9.8 Phosphorus Magnesium Total Bilirubin AST ALT Alkaline Phosphatase Troponin I Total Protein Albumin Globulin Albumin/Globulin Ratio Triglycerides Cholesterol LDL Cholesterol Direct HDL Cholesterol Thyroxine (T4) TSH 3rd Generation Urine Color Urine Clarity Urine pH Ur Specific [place] Urine Protein Urine Glucose (UA) Urine Ketones Urine Blood Urine Nitrate Urine Bilirubin Urine Urobilinogen Ur Leukocyte Esterase Urine RBC (Auto) Urine Microscopic WBC 12/30/17 12/30/17 12/31/17 16:55 16:59 01:02 WBC RBC Hgb Hct MCV MCH MCHC RDW Plt Count MPV Neut % (Auto) Lymph % (Auto) [place] % (Auto) Eos % (Auto) Baso % (Auto) Neut # (Auto) Lymph # (Auto) [place] # (Auto) Eos # (Auto) Baso # (Auto) ESR Sodium Potassium Chloride Carbon Dioxide Anion Gap BUN Creatinine Est GFR ( Amer) Est GFR (Non-Af Amer) POC Glucose (mg/dL) Random Glucose Calcium Phosphorus Magnesium Total Bilirubin AST ALT Alkaline Phosphatase Troponin I < 0.0120 < 0.0120 Total Protein Albumin Globulin Albumin/Globulin Ratio Triglycerides Cholesterol LDL Cholesterol Direct HDL Cholesterol Thyroxine (T4) TSH 3rd Generation Urine Color Straw Urine Clarity Clear Urine pH 6.0 Ur Specific [place] < 1.005 Urine Protein Negative Urine Glucose (UA) Neg Urine Ketones Negative Urine Blood Negative Urine Nitrate Negative Urine Bilirubin Negative Urine Urobilinogen 0.2-1.0 Ur Leukocyte Esterase Neg Urine RBC (Auto) < 1 Urine Microscopic WBC 1 12/31/17 12/31/17 12/31/17 04:25 04:25 08:57 WBC 12.8 H RBC 4.31 L Hgb 12.8 Hct 39.2 MCV 91.0 MCH 29.7 MCHC 32.6 L RDW 19.3 H Plt Count 313 MPV Neut % (Auto) Lymph % (Auto) [place] % (Auto) Eos % (Auto) Baso % (Auto) Neut # (Auto) Lymph # (Auto) [place] # (Auto) Eos # (Auto) Baso # (Auto) ESR 38 H Sodium 138 Potassium 3.8 Chloride 104 Carbon Dioxide 27 Anion Gap 11 BUN 12 Creatinine 1.0 Est GFR ( Amer) > 60 Est GFR (Non-Af Amer) > 60 POC Glucose (mg/dL) Random Glucose 90 Calcium 9.3 Phosphorus 4.2 Magnesium 1.9 Total Bilirubin 0.4 AST 29 ALT 41 Alkaline Phosphatase 59 Troponin I < 0.0120 Total Protein 6.8 Albumin 3.9 Globulin 2.9 Albumin/Globulin Ratio 1.4 Triglycerides 127 D Cholesterol 121 LDL Cholesterol Direct 67 HDL Cholesterol 44 Thyroxine (T4) 8.22 TSH 3rd Generation 1.25 Urine Color Urine Clarity Urine pH Ur Specific [place] Urine Protein Urine Glucose (UA) Urine Ketones Urine Blood Urine Nitrate Urine Bilirubin Urine Urobilinogen Ur Leukocyte Esterase Urine RBC (Auto) Urine Microscopic WBC Assessment & Plan (1) Near syncope Assessment and Plan: Likely vasovagal since the patient was sitting on the bus for quite some time and then stood up. Non-focal neurological exam and MRI of the brain showed chronic ischemic changes, but no acute findings. There is no indication that the episode was a seizure, therefor an EEG may not be warranted. A CTA of the head/neck may be helpful to rule out VBI. I recommend cardiology work-up considering his history. Infectious work-up is also a good consideration since he had elevated WBC. Status: Acute
--- NOTE | 2017-12-31 13:59 | MRI ---
Date of service: 12/31/2017 PROCEDURE: MRI BRAIN WITH AND WITHOUT CONTRAST HISTORY: near syncope COMPARISON: Noncontrast head CT from 12/30/2017 TECHNIQUE: Multiplanar, multisequence MR images of the brain were obtained with and without intravenous contrast enhancement. FINDINGS: HEMORRHAGE: None DWI: No evidence of an acute or early subacute infarction. BRAIN PARENCHYMA: There are moderate chronic microangiopathic changes. There is no mass, mass effect or abnormal extra-axial fluid collection. The midline sagittal structures are normal. ENHANCEMENT: No abnormal intracranial enhancement. VENTRICLES: There is mild age-related global parenchymal volume loss and proportionate enlargement of the ventricles and cortical sulci. There are prominent perivascular spaces in bilateral basal ganglia. CRANIUM: There is normal bone marrow signal pattern. ORBITS: Grossly unremarkable. PARANASAL SINUSES/MASTOIDS: Clear VASCULAR SYSTEM: There are normal signal voids in the larger intracranial arteries. OTHER FINDINGS: None . IMPRESSION: No acute intracranial abnormality. Moderate chronic microangiopathic changes and mild age-related global parenchymal volume loss.
--- NOTE | 2017-12-31 14:15 | CP.PCM.HP ---
History of Present Illness - History of Present Illness History of Present Illness: CC: Dizziness. 72 y/o M, with PMHx: COPD, Emphysema, CAD with cardiac Stent x2 2017, R/A, O/A. [facility] due to severe Dizziness with associated nausea, sweating, weakness, feeling he was falling down in the bus. Suddenly episode while he was returning home by bus from his visit to the Emergency Department Clinician on [facility]. Worsening symptom: Found with elevated BP 181/111 in the ED. SOB. Aggravated factor: Not in compliance with BP medications x several months. Pt denied: Fever, chills, vomiting, diarrhea, abdominal pain, CP, headache, numbness, cough, sick contact. Head CT: No acute intracranial abnormality. Mild chronic microangiopathic changes age-related. EKG: Inferior infarct,age undetermined. Present on Admission - Present on Admission Any Indicators Present on Admission: No Review of Systems - Constitutional Constitutional: Weakness - EENT Eyes: Requires Corrective Lenses Ears: Other (negative) Nose/Mouth/Throat: Other (negative) - Cardiovascular Cardiovascular: Other (negative) - Respiratory Respiratory: Dyspnea - Gastrointestinal Gastrointestinal: Nausea - Genitourinary Genitourinary: Other (negative) - Musculoskeletal Musculoskeletal: Arthralgias - Integumentary Integumentary: Other (negative) - Neurological Neurological: Dizziness, Weakness - Psychiatric Psychiatric: Depression - Endocrine Endocrine: Other (negative) - Hematologic/Lymphatic Hematologic: Other (negative) Past Patient History - Infectious Disease Hx of Infectious Diseases: None - Past Medical History & Family History Past Medical History?: Yes Pertinent Family History: HTN, [place] - Past Social History Smoking Status: Former Smoker (Light smoker) Alcohol: None Drugs: Denies Home Situation {Lives}: Alone - CARDIAC Hx Cardiac Disorders: Yes Hx Hypercholesterolemia: Yes Hx Hypertension: Yes - PULMONARY Hx Asthma: Yes Hx Chronic Obstructive Pulmonary Disease (COPD): Yes Hx Emphysema: Yes Hx Pneumonia: Yes Hx Sleep Apnea: Yes - NEUROLOGICAL Hx Neurological Disorder: No Other/Comment: Carotid Stenosi- ?? as reported by patient - HEENT Hx HEENT Problems: Yes Hx Cataracts: Yes (Right eye catarct Sx) - RENAL Hx Chronic Kidney Disease: No - ENDOCRINE/METABOLIC Hx Endocrine Disorders: No Hx Diabetes Mellitus Type 2: No - HEMATOLOGICAL/ONCOLOGICAL Hx Blood Disorders: Yes Hx Anemia: Yes Hx Human Immunodeficiency Virus (HIV): No - INTEGUMENTARY Hx Dermatological Problems: No - MUSCULOSKELETAL/RHEUMATOLOGICAL Hx Musculoskeletal Disorders: Yes Hx Arthritis: Yes Hx Falls: Yes Hx Osteoporosis: Yes Hx Rheumatoid Arthritis: Yes - GASTROINTESTINAL Hx Gastrointestinal Disorders: Yes Hx Gastroesophageal Reflux: Yes - GENITOURINARY/GYNECOLOGICAL Hx Genitourinary Disorders: Yes Hx Prostate Problems: Yes (BPH) - PSYCHIATRIC Hx Psychophysiologic Disorder: Yes Hx Anxiety: Yes Hx Depression: Yes Hx Substance Use: No - SURGICAL HISTORY Hx Surgeries: Yes Hx Coronary Stent: Yes (x 2) - ANESTHESIA Hx Anesthesia: Yes Hx Anesthesia Reactions: No Hx Malignant Hyperthermia: No Meds Allergies/Adverse Reactions: Allergies Allergy/AdvReac Type Severity Reaction Status Date / Time No Known Allergies Allergy Verified 10/06/17 15:36 Physical Exam - Constitutional Appears: No Acute Distress - Head Exam Head Exam: NORMAL INSPECTION - Eye Exam Eye Exam: PERRL - ENT Exam ENT Exam: Normal Exam - Neck Exam Neck exam: Positive for: Normal Inspection - Respiratory Exam Respiratory Exam: Rhonchi, Wheezes (scattered) - Cardiovascular Exam Cardiovascular Exam: REGULAR RHYTHM - GI/Abdominal Exam GI & Abdominal Exam: Normal Bowel Sounds, Soft - Extremities Exam Extremities exam: Positive for: normal inspection - Back Exam Back exam: NORMAL INSPECTION - Neurological Exam Neurological exam: Alert, Oriented x3 Additional comments: Follows commands, weakness. - Psychiatric Exam Psychiatric exam: Depressed - Skin Skin Exam: Normal Color, Warm Results - Vital Signs Recent Vital Signs: Last Vital Signs Temp 97.5 F L 12/31/17 08:00 Pulse 86 12/31/17 09:00 Resp 18 12/31/17 08:00 BP 106/79 12/31/17 08:58 Pulse Ox 96 12/31/17 08:00 reviewed William - Labs Result Diagrams: 12/31/17 04:25 12/31/17 04:25 Labs: Laboratory Results - last 24 hr 12/30/17 12/30/17 12/30/17 13:35 14:12 14:12 WBC 13.4 H RBC 4.60 Hgb 13.5 Hct 42.4 MCV 92.1 D MCH 29.4 MCHC 31.9 L RDW 19.0 H Plt Count 342 D MPV 10.3 Neut % (Auto) 63.5 Lymph % (Auto) 21.4 [place] % (Auto) 12.2 H Eos % (Auto) 2.1 Baso % (Auto) 0.8 Neut # (Auto) 8.5 H Lymph # (Auto) 2.9 George # (Auto) 1.6 H Eos # (Auto) 0.3 Baso # (Auto) 0.1 ESR Sodium 138 Potassium 4.6 Chloride 103 Carbon Dioxide 27 Anion Gap 13 BUN 10 Creatinine 0.9 Est GFR ( Amer) > 60 Est GFR (Non-Af Amer) > 60 POC Glucose (mg/dL) 82 Random Glucose 80 Calcium 9.8 Phosphorus Magnesium Total Bilirubin AST ALT Alkaline Phosphatase Troponin I Total Protein Albumin Globulin Albumin/Globulin Ratio Triglycerides Cholesterol LDL Cholesterol Direct HDL Cholesterol Thyroxine (T4) TSH 3rd Generation Urine Color Urine Clarity Urine pH Ur Specific [place] Urine Protein Urine Glucose (UA) Urine Ketones Urine Blood Urine Nitrate Urine Bilirubin Urine Urobilinogen Ur Leukocyte Esterase Urine RBC (Auto) Urine Microscopic WBC 12/30/17 12/30/17 12/31/17 16:55 16:59 01:02 WBC RBC Hgb Hct MCV MCH MCHC RDW Plt Count MPV Neut % (Auto) Lymph % (Auto) [place] % (Auto) Eos % (Auto) Baso % (Auto) Neut # (Auto) Lymph # (Auto) [place] # (Auto) Eos # (Auto) Baso # (Auto) ESR Sodium Potassium Chloride Carbon Dioxide Anion Gap BUN Creatinine Est GFR ( Amer) Est GFR (Non-Af Amer) POC Glucose (mg/dL) Random Glucose Calcium Phosphorus Magnesium Total Bilirubin AST ALT Alkaline Phosphatase Troponin I < 0.0120 < 0.0120 Total Protein Albumin Globulin Albumin/Globulin Ratio Triglycerides Cholesterol LDL Cholesterol Direct HDL Cholesterol Thyroxine (T4) TSH 3rd Generation Urine Color Straw Urine Clarity Clear Urine pH 6.0 Ur Specific [place] < 1.005 Urine Protein Negative Urine Glucose (UA) Neg Urine Ketones Negative Urine Blood Negative Urine Nitrate Negative Urine Bilirubin Negative Urine Urobilinogen 0.2-1.0 Ur Leukocyte Esterase Neg Urine RBC (Auto) < 1 Urine Microscopic WBC 1 12/31/17 12/31/17 12/31/17 04:25 04:25 08:57 WBC 12.8 H RBC 4.31 L Hgb 12.8 Hct 39.2 MCV 91.0 MCH 29.7 MCHC 32.6 L RDW 19.3 H Plt Count 313 MPV Neut % (Auto) Lymph % (Auto) [place] % (Auto) Eos % (Auto) Baso % (Auto) Neut # (Auto) Lymph # (Auto) [place] # (Auto) Eos # (Auto) Baso # (Auto) ESR 38 H Sodium 138 Potassium 3.8 Chloride 104 Carbon Dioxide 27 Anion Gap 11 BUN 12 Creatinine 1.0 Est GFR ( Amer) > 60 Est GFR (Non-Af Amer) > 60 POC Glucose (mg/dL) Random Glucose 90 Calcium 9.3 Phosphorus 4.2 Magnesium 1.9 Total Bilirubin 0.4 AST 29 ALT 41 Alkaline Phosphatase 59 Troponin I < 0.0120 Total Protein 6.8 Albumin 3.9 Globulin 2.9 Albumin/Globulin Ratio 1.4 Triglycerides 127 D Cholesterol 121 LDL Cholesterol Direct 67 HDL Cholesterol 44 Thyroxine (T4) 8.22 TSH 3rd Generation 1.25 Urine Color Urine Clarity Urine pH Ur Specific [place] Urine Protein Urine Glucose (UA) Urine Ketones Urine Blood Urine Nitrate Urine Bilirubin Urine Urobilinogen Ur Leukocyte Esterase Urine RBC (Auto) Urine Microscopic WBC reviewed J.P. - EKG Data EKG comments: reviewed J.P. - Imaging and Cardiology CT scan - head Status: Report reviewed by me (FaustoP.) Assessment & Plan (1) Uncontrolled hypertension Status: Acute Priority: High (2) Near syncope Status: Acute Priority: High (3) COPD (chronic obstructive pulmonary disease) Status: Chronic Priority: Medium (4) Rheumatoid arthritis Status: Chronic Priority: Medium (5) OA (osteoarthritis) Status: Chronic Priority: Medium (6) BPH (benign prostatic hyperplasia) Status: Chronic Priority: Medium (7) Depression Status: Chronic Priority: Medium - Assessment and Plan (Free Text) Plan: F/U Rheumatoid Factor, EEG, Echo, Carotid U-S, Brain MRI, continue Toprol, Methotrexate, Lipitor, Duoneb, Elavil, Brilinta and rest of Tx. Neuro and cardiology consult. - Date & Time Date: 12/31/17 Time: 11:00
--- NOTE | 2017-12-31 14:29 | CARD ---
APPROVED REPORT Date of service: 12/31/2017 EXAM: Two-dimensional and M-mode echocardiogram with Doppler and color Doppler. Other Information Quality : GoodRhythm : NSR INDICATION Syncope 2D DIMENSIONS IVSd1.00 (0.7-1.1cm)LVDd4.39 (3.9-5.9cm) PWd0.85 (0.7-1.1cm)IVSs1.42 (0.8-1.2cm) LVDs2.86 (2.5-4.0cm)FS (%) 34.8 % PWs1.27 (0.8-1.2cm) M-Mode DIMENSIONS Left Atrium (MM)3.72 (2.5-4.0cm)IVSd1.09 (0.7-1.1cm) Aortic Root3.69 (2.2-3.7cm)LVDd4.38 (4.0-5.6cm) Aortic Cusp Exc.2.34 (1.5-2.0cm)PWd1.56 (0.7-1.1cm) IVSs2.06 cmFS (%) 50 % LVDs2.19 (2.0-3.8cm)PWs1.75 cm Aortic Valve AoV Peak Oqvvslee956.5cm/sAoV VTI23.4cmAO Peak GR.7mmHg LVOT Peak Udyltdxa345.8cm/sLVOT VTI18.59cmAO Mean GR.4mmHg Mitral Valve MV E Geedtyha78.7cm/sMV DECEL YTHL879vmPA A Kervqriu57.1cm/s MV QXG713sfS/A ratio0.6MVA (PHT)2.13cm2 TDI Lateral E' Peak V9.37cm/sMedial E' Peak V6.76cm/sE/Lateral E'6.1 E/Medial E'8.4 LEFT VENTRICLE The left ventricle is normal size. There is normal left ventricular wall thickness. The left ventricular systolic function is normal. The estimated ejection fraction is 60-65% No regional wall motion abnormalities noted.. Transmitral Doppler flow pattern is Grade I-abnormal relaxation pattern. No left ventricle thrombus noted on this study. There is no ventricular septal defect visualized. There is no left ventricular aneurysm. There is no mass noted in the left ventricle. RIGHT VENTRICLE The right ventricle is normal size. There is normal right ventricular wall thickness. The right ventricular systolic function is normal. ATRIA The left atrium size is normal. The right atrium size is normal. The interatrial septum is intact with no evidence for an atrial septal defect. AORTIC VALVE The aortic valve is normal in structure. No aortic regurgitation is present. There is no aortic valvular stenosis. There is no aortic valvular vegetation. MITRAL VALVE The mitral valve is normal in structure. There is no evidence of mitral valve prolapse. There is no mitral valve stenosis. There is no mitral valve regurgitation noted. TRICUSPID VALVE The tricuspid valve is normal in structure. There is trace tricuspid valve regurgitation noted. There is no tricuspid valve prolapse or vegetation. There is no tricuspid valve stenosis. PULMONIC VALVE The pulmonary valve is normal in structure. There is no pulmonic valvular regurgitation. There is no pulmonic valvular stenosis. GREAT VESSELS The aortic root is normal in size. The ascending aorta is normal in size. The pulmonary artery is normal. The IVC is normal in size and collapses >50% with inspiration. PERICARDIAL EFFUSION There is no pericardial effusion. There is no pleural effusion. <Conclusion> The estimated ejection fraction is 60-65% Transmitral Doppler flow pattern is Grade I-abnormal relaxation pattern. The left atrium size is normal. There is trace tricuspid valve regurgitation noted.
[2018-01-01] MEDS: Albuterol-Ipratrop 3 mg / 0.5 (3 ml) UD INH SCH ×3 (07:56→19:44)
[2018-01-01] MEDS: Metoprolol Succinate 25 mg XL Tab PO SCH (09:49)
[2018-01-01 11:08] LABS: HEMOGLOBIN 13.2 g/dL (12.0-18.0); MEAN CELL VOLUME 91.6 fl (80.0-94.0); MEAN CORPUSCULAR HEMOGLOBIN 29.8 pg (27.0-31.0); MEAN CORPUSCULAR HGB CONC 32.5 g/dL (33.0-37.0); RBC 4.44 Mil/uL (4.40-5.90); RED CELL DISTRIBUTION WIDTH 19.4 % (11.5-14.5); WHITE BLOOD COUNT 11.9 K/uL (4.8-10.8)
--- NOTE | 2018-01-01 13:23 | CP.PCM.PN ---
Subjective - Date & Time of Evaluation Date of Evaluation: 01/01/18 Time of Evaluation: 14:10 - Subjective Subjective: F/U Near Syncope/ HTN no AD, N/C, no dizziness, no headache, no blurred vision Objective - Vital Signs/Intake and Output Vital Signs (last 24 hours): Temp Pulse Resp BP Pulse Ox 97.8 F 78 20 109/68 98 01/01/18 07:58 01/01/18 09:49 01/01/18 07:58 01/01/18 09:49 01/01/18 07:58 - Medications Medications: Current Medications Albuterol/Ipratropium (Duoneb 3 Mg/0.5 Mg (3 Ml) Ud) 3 ml INH RTID [facility] Last Admin: 01/01/18 07:56 Dose: 3 ml Amitriptyline HCl (Elavil) 40 mg PO HS [facility] Last Admin: 12/31/17 21:38 Dose: 40 mg Atorvastatin Calcium (Lipitor) 40 mg PO [facility] Last Admin: 12/31/17 21:38 Dose: 40 mg Folic Acid (Folic Acid) 1 mg PO DAILY [facility] Last Admin: 01/01/18 09:48 Dose: 1 mg Home Med (Leflunomide [Arava]) 20 mg PO DAILY [facility] Hydroxychloroquine Sulfate (Plaquenil) 200 mg PO Q12 [facility]; Protocol Last Admin: 01/01/18 09:48 Dose: 200 mg Methotrexate (Methotrexate) 7.5 mg PO SUN [facility]; Protocol Metoprolol Succinate (Toprol Xl) 25 mg PO DAILY [facility] Last Admin: 01/01/18 09:49 Dose: 25 mg Tamsulosin HCl (Flomax) 0.4 mg PO [facility] Last Admin: 12/31/17 21:38 Dose: 0.4 mg Ticagrelor (Brilinta) 60 mg PO BID [facility] Last Admin: 01/01/18 09:48 Dose: 60 mg - Labs Labs: 01/01/18 10:25 12/31/17 04:25 - Constitutional Appears: No Acute Distress - Head Exam Head Exam: NORMAL INSPECTION - Eye Exam Eye Exam: PERRL - ENT Exam ENT Exam: Normal Exam - Neck Exam Neck Exam: Normal Inspection - Respiratory Exam Respiratory Exam: Decreased Breath Sounds (at bases) - Cardiovascular Exam Cardiovascular Exam: REGULAR RHYTHM - GI/Abdominal Exam GI & Abdominal Exam: Soft, Normal Bowel Sounds - Extremities Exam Extremities Exam: Normal Inspection - Back Exam Back Exam: NORMAL INSPECTION - Neurological Exam Neurological Exam: Alert, Oriented x3 Additional comments: no motor/sensory deficit - Psychiatric Exam Psychiatric exam: Anxious - Skin Skin Exam: Normal Color, Warm Assessment and Plan (1) Uncontrolled hypertension Status: Resolved (2) Near syncope Status: Acute (3) COPD (chronic obstructive pulmonary disease) Status: Chronic (4) Rheumatoid arthritis Status: Chronic (5) OA (osteoarthritis) Status: Chronic (6) BPH (benign prostatic hyperplasia) Status: Chronic (7) Depression Status: Chronic - Assessment and Plan (Free Text) Plan: Brain MRI chronic changes, Head/Neck CTA no significant stenosis, f/u Cardiac consult
[2018-01-01] MEDS ORDERED: Iodixanol 320 MG/ML 100 ML BOTTLE IV ONE (13:35)
[2018-01-01] MEDS ORDERED: Sodium Chloride 0.9% 50 ML IV ONE (13:35)
--- NOTE | 2018-01-01 15:25 | CT ---
Date of service: 01/01/2018 PROCEDURE: CT Angiography of the neck and brain. HISTORY: Vertigo, VBI COMPARISON: Comparison made with prior CT scan of the brain MRI of the brain dated 12 30 2017 and 12/31/2017 respectively. TECHNIQUE: Contiguous axial images of the neck were obtained from the level of the vertex of the skull to the superior mediastinum in the arteriographic phase of enhancement. Coronal and sagittal reformats or also generated. IV contrast dose: 99 cc Visipaque 320 Radiation dose: Total exam DLP = 534.66 mGy-cm. This CT exam was performed using one or more of the following dose reduction techniques: Automated exposure control, adjustment of the mA and/or kV according to patient size, and/or use of iterative reconstruction technique. FINDINGS: The aortic arch is widely patent.. There is mild dilatation of the distal aspect of the aortic arch (measuring approximately 3.66 cm) compared to the proximal portion. There is mild partially calcified atherosclerotic plaque changes seen along the aortic arch as well. The great vessels are patent. The common carotid arteries are also patent. Some minor calcifications seen at both carotid bifurcations however no significant stenosis. The distal internal carotid arteries including the petrous cavernous and supraclinoid segments are patent. Minor calcified plaque both cavernous segments left more so than right. Vertebral arteries are patent throughout, left-side of which is slightly larger in caliber than the right. Basilar artery is patent. The visualized major branches of the [id number] are also patent.. The distal branches of the anterior middle and posterior cerebral arteries are patent as well. No evidence of large aneurysm nor vascular malformation. OTHER FINDINGS: Multilevel degenerative spondylosis of the cervical spine. Centrilobular and paraseptal emphysematous changes along with fibrosis seen in the lung apices and upper lobes. IMPRESSION: Minimal calcified plaque seen both carotid bifurcations without occlusion, dissection nor significant stenosis. Minor calcified plaque changes both carotid siphons left greater than right.. No evidence of large aneurysm nor vascular malformation. See above discussion for additional details and findings.
--- NOTE | 2018-01-01 17:55 | CP.PCM.CON ---
History of Present Illness - History of Present Illness History of Present Illness: I was asked to see patient by Dr Son. Patient was seen 01/01/18 at 1700. Patient is a 72 year old male with HTN, hypercholesterolemia CAD s/p PCI who presents with dizziness. The patient was at home when he felt the sudden headache and lightheadedness. He was found to have a systolic BP 190. He presented to [facility] for further management. He denies chest pain or palpititations. The patient states symptoms resolved in the hospital. He was placed on antihypertensive therapy. Review of Systems - Constitutional Constitutional: absent: As Per HPI, Anorexia, Chills, Daytime Sleepiness, Excessive Sweating, Fatigue, Fever, Frequent Falls, Headache, Increased A ppetite, Lethargy, Malaise, Night Sweats, Snoring, Sleep Apnea, Weight Gain, Weight Loss, Weakness, Other - EENT Eyes: absent: As Per HPI, Blind Spots, Blurred Vision, Change in Vision, Decreased Night Vision, Diplopia, Discharge, Dry Eye, Exophthalmos, Floaters, Irritation, Itchy Eyes, Loss of Peripheral Vision, Pain, Photophobia, Requires Corrective Lenses, Sees Flashes, Spots in Vision, Tunnel Vision, Other Visual Disturbances, Loss of Vision, Other Ears: absent: As Per HPI, Decreased Hearing, Ear Discharge, Ear Pain, Tinnitus, Abnormal Hearing, Disequilibrium, Dizziness, Other Nose/Mouth/Throat: absent: As Per HPI, Epistaxis, Nasal Congestion, Nasal Discharge, Nasal Obstruction, Nasal Trauma, Nose Pain, Post Nasal Drip, Sinus Pain, Sinus Pressure, Bleeding Gums, Change in Voice, Dental Pain, Dry Mouth, Dysphagia, Halitosis, Hoarsness, Lip Swelling, Mouth Lesions, Mouth Pain, Odynophagia, Sore Throat, Throat Swelling, Tongue Swelling, Facial Pain, Neck Pain, Neck Mass, Other - Cardiovascular Cardiovascular: absent: As Per HPI, Acrocyanosis, Chest Pain, Chest Pain at Rest, Chest Pain with Activity, Claudication, Diaphoresis, Dyspnea, Dyspnea on Exertion, Edema, Irregular Heart Rhythm, Pain Radiating to Arm/Neck/Jaw, Leg Edema, Leg Ulcers, Lightheadedness, Orthopnea, Palpitations, Paroxysmal Nocturnal Dyspnea, Pedal Edema, Radiating Pain, Rapid Heart Rate, Slow Heart Rate, Syncope, Other - Respiratory Respiratory: absent: As Per HPI, Cough, Dyspnea, Hemoptysis, Dyspnea on Exertion, Wheezing, Snoring, Stridor, Pain on Inspiration, Chest Congestion, Excessive Mucous Production, Change in Mucous Color, Pain with Coughing, Other - Gastrointestinal Gastrointestinal: absent: As Per HPI, Abdominal Pain, Belching, Bloating, Change in Bowel Habits, Change in Stool Character, Coffee Ground Emesis, Constipation, Cramping, Diarrhea, Dyspepsia, Dysphagia, Early Satiety, Excessive Flatus, Fecal Incontinence, Heartburn, Hematemesis, Hematochezia, Loose Stools, Melena, Nause a, Odynophagia, Temesmus, Vomiting, Other - Genitourinary Genitourinary: absent: As Per HPI, Change in Urinary Stream, Difficulty Urinating, Dysuria, Flank Pain, Hematuria, Pyuria, Nocturia, Urinary Incontinence, Urinary Frequency, Urinary Hesitance, Urinary Urgency, Voiding Freq/Small Amts, Freq UTI, Hx Renal/Bladder Calculi, Hx /Renal Surgery, Bladder Distension, Other - Musculoskeletal Musculoskeletal: absent: As Per HPI, Abnormal Gait, Arthralgias, Atrophy, Back Pain, Deformity, Joint Swelling, Limited Range of Motion, Loss of Height, Muscle Cramps, Muscle Weakness, Myalgias, Neck Pain, Numbness, Radiating Pain into Limb, Stiffness, Tingling, Other - Integumentary Integumentary: absent: As Per HPI, Acne, Alopecia, Bleeding Lesions, Change in Hair, Change in Nails, Change in Pigmentation, Changing Lesions, Dry Skin, Erythema, Furuncle, Hirsutism, Lesions, New Lesions, Non-Healing Lesions, Photosensitivity, Pruritus, Rash, Skin Pain, Skin Ulcer, Sores, Striae, Swel ling, Unusual Bruising, Wounds, Jaundice, Other - Neurological Neurological: Dizziness - Psychiatric Psychiatric: absent: As Per HPI, Abnormal Sleep Pattern, Anhedonia, Anxiety, Auditory Hallucinations, Behavioral Changes, Change in Appetite, Change in Libido, Confusion, Depression, Difficulty Concentrating, Hallucinations, Homicidal Ideation, Hopelessness, Irritability, Memory Loss, Mood Swings, Panic Attacks, Paranoia, Suicidal Ideation, Visual Hallucinations, Tactile Hallucinations, Other - Endocrine Endocrine: absent: As Per HPI, Change in Body Appearance, Change in Libido, Cold Intolorance, Deepening of Voice, Excessive Sweating, Fatigue, Flushing, Heat Intolorance, Increase in Ring/Shoe/Hat Size, Palpitations, Polydipsia, Polyphagia, Polyuria, Other - Hematologic/Lymphatic Hematologic: absent: As Per HPI, Easy Bleeding, Easy Bruising, Lymphadenopathy, Other Past Patient History - Infectious Disease Hx of Infectious Diseases: None - Past Medical History & Family History Past Medical History?: Yes - Past Social History Smoking Status: Former Smoker (Light smoker) Alcohol: None Drugs: Denies Home Situation {Lives}: Alone - CARDIAC Hx Cardiac Disorders: Yes Hx Hypercholesterolemia: Yes Hx Hypertension: Yes - PULMONARY Hx Asthma: Yes Hx Chronic Obstructive Pulmonary Disease (COPD): Yes Hx Emphysema: Yes Hx Pneumonia: Yes Hx Sleep Apnea: Yes - NEUROLOGICAL Hx Neurological Disorder: No Other/Comment: Carotid Stenosi- ?? as reported by patient - HEENT Hx HEENT Problems: Yes Hx Cataracts: Yes (Right eye catarct Sx) - RENAL Hx Chronic Kidney Disease: No - ENDOCRINE/METABOLIC Hx Endocrine Disorders: No Hx Diabetes Mellitus Type 2: No - HEMATOLOGICAL/ONCOLOGICAL Hx Blood Disorders: Yes Hx Anemia: Yes Hx Human Immunodeficiency Virus (HIV): No - INTEGUMENTARY Hx Dermatological Problems: No - MUSCULOSKELETAL/RHEUMATOLOGICAL Hx Musculoskeletal Disorders: Yes Hx Arthritis: Yes Hx Falls: Yes Hx Osteoporosis: Yes Hx Rheumatoid Arthritis: Yes - GASTROINTESTINAL Hx Gastrointestinal Disorders: Yes Hx Gastroesophageal Reflux: Yes - GENITOURINARY/GYNECOLOGICAL Hx Genitourinary Disorders: Yes Hx Prostate Problems: Yes (BPH) - PSYCHIATRIC Hx Psychophysiologic Disorder: Yes Hx Anxiety: Yes Hx Depression: Yes Hx Substance Use: No - SURGICAL HISTORY Hx Surgeries: Yes Hx Coronary Stent: Yes (x 2) - ANESTHESIA Hx Anesthesia: Yes Hx Anesthesia Reactions: No Hx Malignant Hyperthermia: No Meds Allergies/Adverse Reactions: Allergies Allergy/AdvReac Type Severity Reaction Status Date / Time No Known Allergies Allergy Verified 10/06/17 15:36 - Medications Medications: Current Medications Albuterol/Ipratropium (Duoneb 3 Mg/0.5 Mg (3 Ml) Ud) 3 ml INH RTID [facility] Last Admin: 01/01/18 13:54 Dose: Not Given Amitriptyline HCl (Elavil) 40 mg PO [facility] Last Admin: 12/31/17 21:38 Dose: 40 mg Atorvastatin Calcium (Lipitor) 40 mg PO [facility] Last Admin: 12/31/17 21:38 Dose: 40 mg Folic Acid (Folic Acid) 1 mg PO DAILY [facility] Last Admin: 01/01/18 09:48 Dose: 1 mg Home Med (Leflunomide [Arava]) 20 mg PO DAILY [facility] Hydroxychloroquine Sulfate (Plaquenil) 200 mg PO Q12 [facility]; Protocol Last Admin: 01/01/18 09:48 Dose: 200 mg Methotrexate (Methotrexate) 7.5 mg PO SUN [facility]; Protocol Metoprolol Succinate (Toprol Xl) 25 mg PO DAILY [facility] Last Admin: 01/01/18 09:49 Dose: 25 mg Tamsulosin HCl (Flomax) 0.4 mg PO HS [facility] Last Admin: 12/31/17 21:38 Dose: 0.4 mg Ticagrelor (Brilinta) 60 mg PO BID [facility] Last Admin: 01/01/18 16:44 Dose: 60 mg Physical Exam - Constitutional Appears: Non-toxic - Head Exam Head Exam: NORMAL INSPECTION - Eye Exam Eye Exam: Normal appearance - ENT Exam ENT Exam: Mucous Membranes Moist - Neck Exam Neck exam: Positive for: Full Rom - Respiratory Exam Respiratory Exam: NORMAL BREATHING PATTERN - Cardiovascular Exam Cardiovascular Exam: REGULAR RHYTHM - GI/Abdominal Exam GI & Abdominal Exam: Normal Bowel Sounds - Rectal Exam Rectal Exam: Deferred - Extremities Exam Extremities exam: Positive for: full ROM, normal inspection, pedal pulses presen t. Negative for: tenderness - Back Exam Back exam: NORMAL INSPECTION - Neurological Exam Neurological exam: Alert, Oriented x3 - Psychiatric Exam Psychiatric exam: Normal Affect - Skin Skin Exam: Dry, Intact, Normal Color Results - Vital Signs Recent Vital Signs: Last Vital Signs Temp 98 F 01/01/18 16:56 Pulse 79 01/01/18 16:56 Resp 16 01/01/18 16:56 BP 122/89 01/01/18 16:56 Pulse Ox 99 01/01/18 16:56 - Labs Result Diagrams: 01/01/18 10:25 12/31/17 04:25 Labs: Laboratory Results - last 24 hr 01/01/18 01/01/18 10:25 10:25 WBC 11.9 H RBC 4.44 Hgb 13.2 Hct 40.7 MCV 91.6 MCH 29.8 MCHC 32.5 L RDW 19.4 H Plt Count 276 Lactic Acid 1.4 - EKG Data EKG Interpreted by: Myself EKG shows normal: Sinus rhythm Assessment & Plan (1) Uncontrolled hypertension Assessment and Plan: improved on current therapy. discussed antihypertensive therapy with the patient Status: Acute Priority: High (2) Hypercholesteremia Assessment and Plan: statin therapy Status: Acute (3) CAD (coronary artery disease) Assessment and Plan: continue antiplatelet therapy Status: Chronic Priority: Medium
[2018-01-02] MEDS: Albuterol-Ipratrop 3 mg / 0.5 (3 ml) UD INH SCH ×2 (07:29→13:04)
[2018-01-02] MEDS: Metoprolol Succinate 25 mg XL Tab PO SCH (08:17)
--- NOTE | 2018-01-02 08:21 | RAD ---
Date of service: 01/02/2018 HISTORY: COPD COMPARISON: Portable chest 11/07/2017. TECHNIQUE: Chest PA and lateral FINDINGS: LUNGS: No acute infiltrate appreciated bilaterally. Extensive chronic fibrotic changes are identified bilaterally, primarily in the periphery and perihilar regions with variable hyperlucency suspicious for COPD. PLEURA: No significant pleural effusion identified. No pneumothorax apparent. CARDIOVASCULAR: No aortic atherosclerotic calcification present. Normal cardiac size. No pulmonary vascular congestion. OSSEOUS STRUCTURES: No significant abnormalities. VISUALIZED UPPER ABDOMEN: Normal. OTHER FINDINGS: None. 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
[2018-01-02 12:19] VITALS: RESP 16; TEMP 97.9
--- NOTE | 2018-01-02 16:30 | CP.PCM.DIS ---
Provider - Provider Date of Admission: 12/30/17 18:18 Attending physician: Kareem Son MD Primary care physician: Kareem Son MD Diagnosis - Discharge Diagnosis (1) Uncontrolled hypertension Status: Resolved Priority: High (2) Near syncope Status: Acute Priority: High (3) COPD (chronic obstructive pulmonary disease) Status: Chronic Priority: Medium Comment: Stable (4) Rheumatoid arthritis Status: Chronic Priority: Medium (5) OA (osteoarthritis) Status: Chronic Priority: Medium (6) BPH (benign prostatic hyperplasia) Status: Chronic Priority: Medium (7) Depression Status: Chronic Priority: Medium Hospital Course - Lab Results Lab Results: Micro Results 01/01/18 14:02 Urine,Clean Catch Urine Culture - Final No Growth (<1,000 CFU/ML) 01/01/18 10:25 Blood Blood Culture - Preliminary NO GROWTH AFTER 24 HOURS 01/01/18 10:15 Blood Blood Culture - Preliminary NO GROWTH AFTER 24 HOURS Most Recent Lab Values WBC 11.9 K/uL (4.8-10.8) H 01/01/18 10:25 RBC 4.44 Mil/uL (4.40-5.90) 01/01/18 10:25 Hgb 13.2 g/dL (12.0-18.0) 01/01/18 10:25 Hct 40.7 % (35.0-51.0) 01/01/18 10:25 MCV 91.6 fl (80.0-94.0) 01/01/18 10:25 MCH 29.8 pg (27.0-31.0) 01/01/18 10:25 MCHC 32.5 g/dL (33.0-37.0) L 01/01/18 10:25 RDW 19.4 % (11.5-14.5) H 01/01/18 10:25 Plt Count 276 K/uL (130-400) 01/01/18 10:25 MPV 10.3 fl (7.2-11.7) 12/30/17 14:12 Neut % (Auto) 63.5 % (50.0-75.0) 12/30/17 14:12 Lymph % (Auto) 21.4 % (20.0-40.0) 12/30/17 14:12 [place] % (Auto) 12.2 % (0.0-10.0) H 12/30/17 14:12 Eos % (Auto) 2.1 % (0.0-4.0) 12/30/17 14:12 Baso % (Auto) 0.8 % (0.0-2.0) 12/30/17 14:12 Neut # (Auto) 8.5 K/uL (1.8-7.0) H 12/30/17 14:12 Lymph # (Auto) 2.9 K/uL (1.0-4.3) 12/30/17 14:12 [place] # (Auto) 1.6 K/uL (0.0-0.8) H 12/30/17 14:12 Eos # (Auto) 0.3 K/uL (0.0-0.7) 12/30/17 14:12 Baso # (Auto) 0.1 K/uL (0.0-0.2) 12/30/17 14:12 ESR 38 mm/hr (0-20) H 12/31/17 04:25 Sodium 138 mmol/l (132-148) 12/31/17 04:25 Potassium 3.8 MMOL/L (3.6-5.0) 12/31/17 04:25 Chloride 104 mmol/L (98-107) 12/31/17 04:25 Carbon Dioxide 27 mmol/L (22-30) 12/31/17 04:25 Anion Gap 11 (10-20) 12/31/17 04:25 BUN 12 mg/dl (9-20) 12/31/17 04:25 Creatinine 1.0 mg/dl (0.8-1.5) 12/31/17 04:25 Est GFR ( Amer) > 60 12/31/17 04:25 Est GFR (Non-Af Amer) > 60 12/31/17 04:25 POC Glucose (mg/dL) 82 mg/dL (65-110) 12/30/17 13:35 Random Glucose 90 mg/dL (75-110) 12/31/17 04:25 Lactic Acid 1.4 MMOL/L (0.7-2.1) 01/01/18 10:25 Calcium 9.3 mg/dL (8.4-10.2) 12/31/17 04:25 Phosphorus 4.2 mg/dl (2.5-4.5) 12/31/17 04:25 Magnesium 1.9 MG/DL (1.6-2.3) 12/31/17 04:25 Total Bilirubin 0.4 mg/dl (0.2-1.3) 12/31/17 04:25 AST 29 U/L (17-59) 12/31/17 04:25 ALT 41 U/L (21-72) 12/31/17 04:25 Alkaline Phosphatase 59 U/L (38-126) 12/31/17 04:25 Troponin I < 0.0120 ng/mL (0.00-0.120) 12/31/17 08:57 Total Protein 6.8 G/DL (6.3-8.2) 12/31/17 04:25 Albumin 3.9 g/dL (3.5-5.0) 12/31/17 04:25 Globulin 2.9 gm/dL (2.2-3.9) 12/31/17 04:25 Albumin/Globulin Ratio 1.4 (1.0-2.1) 12/31/17 04:25 Triglycerides 127 mg/DL (0-149) D 12/31/17 04:25 Cholesterol 121 mg/dL (0-199) 12/31/17 04:25 LDL Cholesterol Direct 67 mg/dL (0-129) 12/31/17 04:25 HDL Cholesterol 44 MG/DL (30-70) 12/31/17 04:25 Thyroxine (T4) 8.22 ug/dl (5.5-11.0) 12/31/17 04:25 TSH 3rd Generation 1.25 mIU/ML (0.46-4.68) 12/31/17 04:25 Urine Color Straw (YELLOW) 12/30/17 16:59 Urine Clarity Clear (Clear) 12/30/17 16:59 Urine pH 6.0 (5.0-8.0) 12/30/17 16:59 Ur Specific [place] < 1.005 (1.003-1.030) 12/30/17 16:59 Urine Protein Negative mg/dL (NEGATIVE) 12/30/17 16:59 Urine Glucose (UA) Neg mg/dL (Normal) 12/30/17 16:59 Urine Ketones Negative mg/dL (NEGATIVE) 12/30/17 16:59 Urine Blood Negative (NEGATIVE) 12/30/17 16:59 Urine Nitrate Negative (NEGATIVE) 12/30/17 16:59 Urine Bilirubin Negative (NEGATIVE) 12/30/17 16:59 Urine Urobilinogen 0.2-1.0 mg/dL (0.2-1.0) 12/30/17 16:59 Ur Leukocyte Esterase Neg Mian/uL (Negative) 12/30/17 16:59 Urine RBC (Auto) < 1 /hpf (0-3) 12/30/17 16:59 Urine Microscopic WBC 1 /hpf (0-5) 12/30/17 16:59 Discharge Exam - Head Exam Head Exam: NORMAL INSPECTION Discharge Plan - Follow Up Plan Condition: STABLE Disposition: HOME/ ROUTINE Instructions: High Blood Pressure (DC), Syncope (Fainting) (DC) Additional Instructions: follow up with in 1 week Referrals: Kareem Son MD [Primary Care Provider] - Elida Krishna MD [Staff Provider] -
[2018-01-02 16:39] VITALS: BP 115/72; PULSE 68; O2SAT 99
--- NOTE | 2018-01-04 15:26 | PCM.EEG ---
Electroencephalogram Report - Electroencephalogram Report Procedure Date: 01/01/18 Medication: None listed Interpretation: Technical Information: This was a 16 -channel EEG, 1-channel EKG routine EEG performed using an [employer] machine. Electrodes were applied using the 10/20 international placement system. Start 14;23 End; 15;14 Total; 51 min. Clinical Information: syncope During resting wakefulness there was a symmetric posterior dominant rhythm at 8 .5-9.5 Hz, 30-50 uV, which was reactive to eye opening and closing. 15;05 drowsiness was associated with fragmentation of the posterior dominant rhythm and with slow roving eye movements. Hyperventilation was not performed. Photic stimulation was performed and there were no changes on the record. Focal abnormality; none ECG was associated with a normal sinus rhythm. Impression: Impression: This is a normal awake and drowsy electroencephalogram.
--- NOTE | 2018-01-05 13:34 | PQF ---
PROVIDER RESPONSE TEXT: Provider was unable to determine a response for this query. REVIEWER QUERY TEXT: Rheumatoid Arthritis Specificity Rheumatoid arthritis is documented in the Medical Record. Please clarify the specific site and later ality. Please also specify any associated conditions Such as -- Bursitis -- Felty?s syndrome -- Juvenile (Please specify type) -- Myopathy -- Nodule -- Organ involvement (Please indicate organ involved and specific disorder) -- Polyneuropathy -- With Rheumatoid Factor -- Other, please specify H and P includes: Rheumatoid arthritis Status: Chronic Priority: Medium -Methotrexate, Arava The patient's Clinical Indicators include: -- Query created by: Hayley Lange on 01/04/2018 12:04 PM Electronically signed by: Kareem Son MD 01/05/2018 1:32 PM
--- NOTE | 2018-01-05 13:34 | PQF ---
PROVIDER RESPONSE TEXT: Provider was unable to determine a response for this query. REVIEWER QUERY TEXT: COPD Specificity COPD - Chronic Obstructive Pulmonary Disease is documented in the Medical Record. Please specify the associated condition (includes suspected or probable) Such as: -- Stable -- Exacerbation - acute -- Lower respiratory infection - acute -- Other, please specify H and P includes:ROS:Respiratory : Dyspnea PE Respiratory: Exam: Rhonchi, Wheezes (scattered) dxs. include: COPD:: Status: Chronic Priority: Medium -Duoneb Tid The patient's Clinical Indicators include: - Query created by: Hayley Lange on 01/04/2018 12:08 PM Electronically signed by: Kareem Son MD 01/05/2018 1:32 PM
== END 2018-01-02 18:00 | disposition home or self-care (01) | DRG 312 ==
LOC: SUPCPDRO 13:14 → H.ER 13:14 → H.ERHOLD 18:18 → H.TEL 21:23
PROVIDERS: ADMIT Internal Medicine Pulmonary Disease; ATTEND Internal Medicine Pulmonary Disease
DX: R55 Syncope and collapse (principal); I10 Essential (primary) hypertension; M06.9 Rheumatoid arthritis, unspecified; M19.90 Unspecified osteoarthritis, unspecified site; M81.0 Age-related osteoporosis without current pathological fracture; N40.0 Benign prostatic hyperplasia without lower urinary tract symptoms; Z79.51 Long term (current) use of inhaled steroids; Z82.49 Family history of ischemic heart disease and other diseases of the circulatory system; Z87.01 Personal history of pneumonia (recurrent); Z87.891 Personal history of nicotine dependence; Z95.5 Presence of coronary angioplasty implant and graft; D64.9 Anemia, unspecified; F41.9 Anxiety disorder, unspecified; Z98.41 Cataract extraction status, right eye; H26.9 Unspecified cataract; E78.00 Pure hypercholesterolemia, unspecified; F32.9 Major depressive disorder, single episode, unspecified; G47.30 Sleep apnea, unspecified; I25.10 Atherosclerotic heart disease of native coronary artery without angina pectoris; I73.9 Peripheral vascular disease, unspecified; J44.9 Chronic obstructive pulmonary disease, unspecified; K21.9 Gastro-esophageal reflux disease without esophagitis

== ENCOUNTER 2018-04-17 03:59 | Emergency (ER) | payer MEDICARE, MEDICAID ==
[2018-04-17 04:15] VITALS: BMI 32.4
[2018-04-17 04:21] VITALS: RESP 18
[2018-04-17] MEDS ORDERED: Albuterol-Ipratrop 3 mg / 0.5 (3 ml) UD INH STA (04:25)
[2018-04-17] MEDS ORDERED: Oxycodone/Acetaminophen 5/325 mg Tab PO STA (04:25)
[2018-04-17] MEDS ORDERED: Oxycodone/Acetaminophen 5/325 mg Tab ONE (04:41)
[2018-04-17] MEDS ORDERED: Albuterol-Ipratrop 3 mg / 0.5 (3 ml) UD ONE (04:41)
--- NOTE | 2018-04-17 06:32 | ED PDOC ---
Lower Extremity Pain/Injury Time Seen by Provider: 04/17/18 04:24 Chief Complaint (Nursing): Lower Extremity Problem/Injury Chief Complaint (Provider): RA Exacerbation History Per: Patient, Electronic Bench Technician (#[id number]) Current Symptoms Are (Timing): Intermittent Episodes Severity: Moderate (Pt is an RA patient who comes to the ED seeking pain medications. The patient has exhausted his percocet rx and has an appointment on Thursday with his physician. Pt denies other illness or concerns) Past Medical History Reviewed: Historical Data, Nursing Documentation, Vital Signs Vital Signs: Last Vital Signs Temp 97.2 F L 04/17/18 04:15 Pulse 77 04/17/18 04:15 Resp 18 04/17/18 04:15 BP 107/69 04/17/18 04:15 Pulse Ox 98 04/17/18 04:15 - Medical History PMH: Anemia, Anxiety, Arthritis, Asthma, Benign Prostatic Hyperplasia, CAD, COPD, Depression, Diverticulitis, Emphysema, HTN, Hypercholesterolemia, Osteoporosis, Pneumonia, Rheumatoid Arthritis, Sleep Apnea Denies: HIV, Chronic Kidney Disease - Surgical History Surgical History: Coronary Stent (x 2) - Family History Family History: States: [place] (father and brother), Hypertension - Home Medications Home Medications: Ambulatory Orders Medication Instructions Recorded Tamsulosin [Flomax] 0.4 mg PO HS 01/09/16 Atorvastatin [Lipitor] 40 mg PO HS 04/21/16 Methotrexate 7.5 mg PO SUN 07/16/16 Amitriptyline [Elavil] 40 mg PO HS 11/28/16 Hydroxychloroquine Sulfate 200 mg PO Q12 11/28/16 [Plaquenil] Albuterol/Ipratropium [Duoneb 3 3 ml INH TID PRN 10/06/17 mg/0.5 mg (3 ml) UD] Folic Acid 1 mg PO DAILY 12/30/17 Leflunomide [Arava] 20 mg PO DAILY 12/30/17 Metoprolol Succinate [Kapspargo 25 mg PO DAILY 12/30/17 Sprinkle] Ticagrelor [Brilinta] 60 mg PO BID 12/30/17 Albuterol/Ipratropium [Duoneb 3 3 ml INH RTID neb 01/02/18 mg/0.5 mg (3 ml) UD] Amitriptyline [Elavil] 40 mg PO HS tab 01/02/18 Atorvastatin [Lipitor] 40 mg PO HS tab 01/02/18 Folic Acid 1 mg PO DAILY tab 01/02/18 Leflunomide [Arava] 20 mg PO DAILY 01/02/18 Methotrexate 7.5 mg PO SUN tab 01/02/18 Metoprolol Succinate XL [Toprol XL] 25 mg PO DAILY tab 01/02/18 Tamsulosin [Flomax] 0.4 mg PO HS cap 01/02/18 Ticagrelor [Brilinta] 60 mg PO BID tab 01/02/18 Diclofenac Potassium 50 mg PO BID #20 tablet 04/17/18 Diclofenac Sodium [Voltaren] 1 gm TP TID #100 gel..gram. 04/17/18 - Allergies Allergies/Adverse Reactions: Allergies Allergy/AdvReac Type Severity Reaction Status Date / Time No Known Allergies Allergy Verified 04/17/18 04:14 Review of Systems ROS Statement: Except As Marked, All Systems Reviewed And Found Negative Musculoskeletal: Positive for: Leg Pain Physical Exam - Reviewed Nursing Documentation Reviewed: Yes - Physical Exam Head Exam: Positive for: ATRAUMATIC, NORMAL INSPECTION Skin: Positive for: Normal Color, Warm, Dry. Negative for: Diaphoresis, Pallor, Rash Eye Exam: Positive for: Normal appearance. Negative for: Nystagmus, Periorbital swelling, Periorbital tenderness Neck: Positive for: Normal, Painless ROM, Supple. Negative for: Decreased ROM Cardiovascular/Chest: Positive for: Regular Rate, Rhythm Respiratory: Positive for: Wheezing Pulses-Carotid (L): 2+ Pulses-Carotid (R): 2+ Pulses-Radial (L): 2+ Pulses-Radial (R): 2+ Extremity: Positive for: Normal ROM, Capillary Refill (<2seconds), Swelling. Negative for: Deformity - ECG O2 Sat by Pulse Oximetry: 98 Medical Decision Making Medical Decision Making: I: RA exacerbation asthma exacerbation P: duoneb decadron percocet 5/325 x 1 The patient reports moderate relief and desires a rx for narcotic pain me dication. I informed him that because he has taken his rx too rapidly, he would not be given a narcotic pain releiver. He will be given NSAID on discharge and NSAID topicla The patient is stable for discharge Disposition - Clinical Impression Clinical Impression: Chronic pain - Patient ED Disposition Is Patient to be Admitted: No Counseled Patient/Family Regarding: Diagnosis, Rx Given - Disposition Disposition: Routine/Home Disposition Time: 06:35 Condition: STABLE Prescriptions: Diclofenac Potassium 50 mg PO BID #20 tablet Diclofenac Sodium [Voltaren] 1 gm TP TID #100 gel..gram. Instructions: Chronic Pain (DC), Chronic Pain
[2018-04-17 07:10] VITALS: BP 111/74; PULSE 71; TEMP 97.1; O2SAT 99
== END 2018-04-17 06:49 | disposition home or self-care (01) ==
LOC: H.ER 03:59
DX: M79.606 Pain in leg, unspecified (principal); G89.4 Chronic pain syndrome
CPT/HCPCS: 94640; 96372; 99284; J1100

== ENCOUNTER 2018-05-26 16:50 | Inpatient (IN) | payer MEDICARE, MEDICAID ==
[2018-05-26 18:26] VITALS: BMI 31.3
[2018-05-26] MEDS ORDERED: Albuterol 0.083% Inhal Sol (2.5 mg/3 mL) UD INH ONE (19:19)
--- NOTE | 2018-05-26 19:24 | ED PDOC ---
HPI: SOB/CHF/COPD Time Seen by Provider: 05/26/18 17:20 Chief Complaint (Nursing): Shortness Of Breath Chief Complaint (Provider): Cough, SOB, Congestion, Fatigue History Per: Patient, Microelectronics Technician (Skinny Mcgraw #[id number]) History/Exam Limitations: no limitations Onset/Duration Of Symptoms: Days (x1 week) Current Symptoms Are (Timing): Still Present Additional Complaint(s): 72 year old male presents to the ED from his PMD's referral for one week of congestion, cough, shortness of breath, and becoming easily fatigued when walking. He notes that Dr. Son ordered him a CXR one week ago, but he is unsure of the results. Otherwise, denies fever and any other complaints. PMD: Kareem Son Past Medical History Reviewed: Historical Data, Nursing Documentation, Vital Signs Vital Signs: Last Vital Signs Temp 98.2 F 05/26/18 17:00 Pulse 84 05/26/18 17:00 Resp 19 05/26/18 17:00 BP 118/75 05/26/18 17:00 Pulse Ox 99 05/26/18 17:25 - Medical History PMH: Anemia, Anxiety, Arthritis, Asthma, Benign Prostatic Hyperplasia, CAD, COPD, Depression, Diverticulitis, Emphysema, HTN, Hypercholesterolemia, Osteoporosis, Pneumonia, Rheumatoid Arthritis, Sleep Apnea Denies: HIV, Chronic Kidney Disease - Surgical History Surgical History: Coronary Stent (x 2) Other surgeries: splenectomy - Family History Family History: States: [place] (father and brother), Hypertension - Social History Current smoker - smoking cessation education provided: No Alcohol: None Drugs: Denies - Home Medications Home Medications: Ambulatory Orders Medication Instructions Recorded Atorvastatin [Lipitor] 40 mg PO HS 04/21/16 Amitriptyline [Elavil] 10 mg PO HS 11/28/16 Hydroxychloroquine Sulfate 200 mg PO Q12 11/28/16 [Plaquenil] Albuterol/Ipratropium [Duoneb 3 3 ml INH TID PRN 10/06/17 mg/0.5 mg (3 ml) UD] Folic Acid 1 mg PO DAILY 12/30/17 Leflunomide [Arava] 10 mg PO DAILY 12/30/17 Ticagrelor [Brilinta] 60 mg PO BID 12/30/17 Tamsulosin [Flomax] 0.4 mg PO HS cap 01/02/18 Acyclovir/Hydrocortisone [Xerese 30 g TOP TID 05/26/18 5%-1% Cream] Lisinopril [Zestril] 10 mg PO DAILY 05/26/18 Tofacitinib Citrate [Xeljanz Xr] 11 mg PO DAILY 05/26/18 - Allergies Allergies/Adverse Reactions: Allergies Allergy/AdvReac Type Severity Reaction Status Date / Time No Known Allergies Allergy Verified 04/17/18 04:14 Review of Systems ROS Statement: Except As Marked, All Systems Reviewed And Found Negative Constitutional: Positive for: Other (easily fatigued with walking). Negative for: Fever ENT: Positive for: Nose Congestion Respiratory: Positive for: Cough, Shortness of Breath Physical Exam - Reviewed Nursing Documentation Reviewed: Yes Vital Signs Reviewed: Yes - Physical Exam Appears: Positive for: No Acute Distress Head Exam: Positive for: ATRAUMATIC, NORMOCEPHALIC Skin: Positive for: Normal Color, Warm. Negative for: Rash Eye Exam: Positive for: Normal appearance ENT: Positive for: Normal ENT Inspection Neck: Positive for: Normal, Painless ROM, Supple Cardiovascular/Chest: Positive for: Regular Rate, Rhythm Respiratory: Positive for: Decreased Breath Sounds, Other (pt coughing thr oughout exam). Negative for: Rales, Rhonchi, Wheezing, Respiratory Distress Gastrointestinal/Abdominal: Positive for: Normal Exam, Soft. Negative for: Tenderness Extremity: Positive for: Normal ROM (all extremities). Negative for: Tenderness (all extremities), Calf Tenderness, Swelling (all extremities) Neurological/Psych: Positive for: Awake, Alert, Oriented (x3). Negative for: Motor/Sensory Deficits - Laboratory Results Result Diagrams: 05/27/18 05:20 05/27/18 05:20 - ECG O2 Sat by Pulse Oximetry: 99 (RA) Pulse Ox Interpretation: Normal Medical Decision Making Medical Decision Making: Time: 1918 Initial Impression: cough, shortness of breath, fatigue rule out copd, pneumonia Initial Plan: --BNP --CMP --Trop I --CBC with differential --CXR --Albuterol 2.5mg INH --Peak flow pre/post --Reevaluate [address] Son of the CXR he had ordered one week ago. He states there was no acute pneumonia, but to do a CT chest for better evaluation and admit for COPD exacerbation. CT FINDINGS: LUNGS: A subpleural honeycomb lung pattern is seen in the periphery of both lung monsalve. There appears to be a mild apical-basilar gradient. These findings could be compatible with UIP. No pneumonic consolidations are identified. No pulmonary mass. PLEURAL SPACES: No pneumothorax evident. No pleural effusions. HEART: No cardiomegaly. No pericardial effusion. Atherosclerotic vascular plaquing seen within the LAD coronary artery. LYMPH NODES: A solitary enlarged right middle mediastinal lymph node is noted. BONES: No focal osseous abnormality or acute fracture. Marginal osteophytic spurring is seen throughout the mid-and lower thoracic vertebrae. UPPER ABDOMEN: The upper abdomen demonstrates hepatomegaly. The liver measured 17.4 cm in the midclavicular line. IMPRESSION: 1. Subpleural honeycomb lung pattern noted with a slight apical-basilar gradient. These findings could be compatible with UIP. 2. Dense atherosclerotic vascular plaquing within the LAD coronary artery. 3. A solitary enlarged right middle mediastinal lymph node is noted. 4. Hepatomegaly. pt treated for copd exacerbation will need admission to [facility] for shortness of breath and cough pt agreeabel Electronically signed on May 26, 2018 9:04:34 PM EDT by: Sukhwinder Petit M.D., MBA Certified By ABR & CBCCT Scribe Attestation: Documented by Xi Castañeda, acting as a scribe for Jani Walker MD. Provider Scribe Attestation: All medical record entries made by the Scribe were at my direction and personally dictated by me. I have reviewed the chart and agree that the record accurately reflects my personal performance of the history, physical exam, medical decision making, and the department course for this patient. I have also personally directed, reviewed, and agree with the discharge instructions and disposition. Disposition - Clinical Impression Clinical Impression: COPD exacerbation - Patient ED Disposition Is Patient to be Admitted: Yes Counseled Patient/Family Regarding: Studies Performed, Diagnosis - Disposition Disposition Time: 20:00 Condition: STABLE
[2018-05-26 19:45] LABS: BASO # 0.2 K/uL (0.0-0.2); BASO % 1.2 % (0.0-2.0); EOS # 0.4 K/uL (0.0-0.7); EOS % 3.4 % (0.0-4.0); HEMOGLOBIN 11.9 g/dL (12.0-18.0); LYMPH # 3.3 K/uL (1.0-4.3); MEAN CELL VOLUME 87.8 fl (80.0-94.0); MEAN CORPUSCULAR HEMOGLOBIN 28.3 pg (27.0-31.0); MEAN CORPUSCULAR HGB CONC 32.3 g/dL (33.0-37.0); MONO # 1.9 K/uL (0.0-0.8); MONO % 15.5 % (0.0-10.0); NEUT # 6.8 K/uL (1.8-7.0); NEUT % 53.9 % (50.0-75.0); RBC 4.19 Mil/uL (4.40-5.90); RED CELL DISTRIBUTION WIDTH 15.1 % (11.5-14.5); WHITE BLOOD COUNT 12.6 K/uL (4.8-10.8)
[2018-05-26] MEDS ORDERED: Albuterol 0.083% Inhal Sol (2.5 mg/3 mL) UD ONE (19:52)
[2018-05-26 19:55] LABS: ALB/GLOB RATIO 1.3 (1.0-2.1); ALBUMIN 3.9 g/dL (3.5-5.0); ALT/SGPT 23 U/L (21-72); AST/SGOT 37 U/L (17-59); BLOOD UREA NITROGEN 16 mg/dl (9-20); CALCIUM 9.3 mg/dL (8.4-10.2); GFR NON-AFRICAN AMERICAN > 60
[2018-05-26 20:06] LABS: B-TYPE NATRIURETIC PEPTIDE 115 pg/ml (0-900)
[2018-05-27] MEDS: Albuterol-Ipratrop 3 mg / 0.5 (3 ml) UD INH SCH ×5 (03:38→19:13)
[2018-05-27] MEDS ORDERED: Pneumococcal 23-Valent Vaccine IM ONE (06:00)
[2018-05-27 06:01] LABS: HEMOGLOBIN 12.4 g/dL (12.0-18.0); MEAN CELL VOLUME 86.8 fl (80.0-94.0); MEAN CORPUSCULAR HEMOGLOBIN 28.5 pg (27.0-31.0); MEAN CORPUSCULAR HGB CONC 32.8 g/dL (33.0-37.0); RBC 4.36 Mil/uL (4.40-5.90); RED CELL DISTRIBUTION WIDTH 15.2 % (11.5-14.5); WHITE BLOOD COUNT 12.4 K/uL (4.8-10.8)
[2018-05-27 06:38] LABS: ALB/GLOB RATIO 1.2 (1.0-2.1); ALBUMIN 4.1 g/dL (3.5-5.0); BLOOD UREA NITROGEN 16 mg/dl (9-20); CALCIUM 9.4 mg/dL (8.4-10.2); GFR NON-AFRICAN AMERICAN > 60; HDL CHOLESTEROL 41 MG/DL (30-70)
[2018-05-27 06:49] LABS: LDL CHOLESTEROL 54 mg/dL (0-129)
[2018-05-27 06:51] LABS: ALT/SGPT 23 U/L (21-72); AST/SGOT 32 U/L (17-59)
[2018-05-27] MEDS: LEFLUNOMIDE 10 MG PO SCH (08:34)
[2018-05-27] MEDS: MethylPREDNISolone 40 mg Vial IVP SCH ×2 (08:34→18:11)
[2018-05-27] MEDS: TOFACITINIB CITRATE 11 MG PO SCH (08:34)
[2018-05-27] MEDS: Azithromycin 500 MG in Sodium Chloride 0.9% 250 ML IVPB SCH (08:35)
[2018-05-27] MEDS ORDERED: methylPREDNISolone 40 MG in Sodium Chloride 0.9% 50 ML IV SCH (09:00)
--- NOTE | 2018-05-27 10:47 | RAD ---
Date of service: 05/26/2018 HISTORY: cough COMPARISON: 01/02/2018. Two view chest. 10/07/2017. CT thorax. TECHNIQUE: Chest PA and lateral views FINDINGS: LUNGS: Chronic interstitial lung disease likely interstitial fibrosis. Findings are stable. PLEURA: No significant pleural effusion identified. No pneumothorax apparent. CARDIOVASCULAR: No aortic atherosclerotic calcification present. Normal cardiac size. No pulmonary vascular congestion. OSSEOUS STRUCTURES: No significant abnormalities. VISUALIZED UPPER ABDOMEN: Normal. OTHER FINDINGS: None. IMPRESSION: No active pulmonary disease. Stable-chronic interstitial lung disease.
--- NOTE | 2018-05-27 12:58 | CT ---
Date of service: 05/26/2018 PROCEDURE: CT Chest without contrast HISTORY: ro pneumonia COMPARISON: 07/16/2016, 09/22/2016, 11/30/2016, 10/07/2017. Serial CT scans thorax. 05/26/2018. Two-view chest. TECHNIQUE: Contiguous axial images were obtained through the chest without intravenous contrast enhancement. Sagittal and coronal reconstructions were performed. Radiation dose: Total exam DLP = 472.85 mGy-cm. This CT exam was performed using one or more of the following dose reduction techniques: Automated exposure control, adjustment of the mA and/or kV according to patient size, and/or use of iterative reconstruction technique. FINDINGS: LUNGS: Chronic interstitial lung disease gradually progressive over the last approximately 2 years. Upper lobe predilection. Honeycombing with reticular nodular changes. Bronchitic changes are chronic.. MEDIASTINUM: Unremarkable thoracic aorta. No aneurysm. Normal sized heart. Main pulmonary artery unremarkable. No vascular congestion. No lymphadenopathy. No aortic atherosclerotic calcification. PLEURA: No pleural fluid. No pneumothorax. BONES: No fracture. No destructive lesion. UPPER ABDOMEN: Grossly unremarkable. Redemonstration of bilateral renal cysts. OTHER FINDINGS: None. IMPRESSION: Progressive interstitial lung disease/pulmonary fibrosis. No new or superimposed pulmonary infiltrates. Concordant results (preliminary interpretation) provided by [employer]. Procedure Completed: 20:22. Preliminary Report: Interpreted and electronically signed: 21:04. Final Interpretation: 12:54. May 27, 2018.
--- NOTE | 2018-05-27 13:12 | CP.PCM.HP ---
History of Present Illness - History of Present Illness History of Present Illness: 72 y/o M, PMHx: COPD, Empysema, PNA, CAD with cardiac Stent, R/A, severe O/A. 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 Worsening symptoms: Dyspnea at rest, GREEN, fatigue when walking. 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 Pt denied: fever, chills, n/v/d, abdominal pain, urinary symptoms, CP, palpitations, sick contact, recent travel out of [facility]. Chest CT: Progressive interstitial lung disease. Pulmonary fibrosis. Present on Admission - Present on Admission Any Indicators Present on Admission: No Review of Systems - Constitutional Constitutional: Fatigue, Weakness - EENT Eyes: Requires Corrective Lenses Ears: Other (negative) Nose/Mouth/Throat: Other (negative) - Cardiovascular Cardiovascular: Other (dyspnea at rest) - Respiratory Respiratory: Dyspnea, Dyspnea on Exertion - Gastrointestinal Gastrointestinal: Other (negative) - Genitourinary Genitourinary: Other (negative) - Musculoskeletal Musculoskeletal: Arthralgias - Integumentary Integumentary: Other (negative) - Psychiatric Psychiatric: Other (negative) - Endocrine Endocrine: Other (negative) - Hematologic/Lymphatic Hematologic: Other (negative) Past Patient History - Infectious Disease Hx of Infectious Diseases: None - Past Medical History & Family History Past Medical History?: Yes Pertinent Family History: UnkFather and brother: HTN, [place] - Past Social History Smoking Status: Former Smoker Alcohol: None Drugs: Denies Home Situation {Lives}: Alone - CARDIAC Hx Cardiac Disorders: Yes (HTN, hypercholesterolemia) - PULMONARY Hx Respiratory Disorders: Yes (COPD, asthma, pneumonia, emphysema) Hx Bronchitis: Yes Hx Chronic Obstructive Pulmonary Disease (COPD): Yes Hx Emphysema: Yes Hx Pneumonia: Yes - NEUROLOGICAL Hx Neurological Disorder: Yes Hx Dizziness: Yes - HEENT Hx HEENT Problems: Yes (cataracts) - RENAL Hx Chronic Kidney Disease: No - ENDOCRINE/METABOLIC Hx Endocrine Disorders: No Hx Diabetes Mellitus Type 2: No - HEMATOLOGICAL/ONCOLOGICAL Hx Blood Disorders: Yes Hx Anemia: Yes Hx Human Immunodeficiency Virus (HIV): No - INTEGUMENTARY Hx Dermatological Problems: No - MUSCULOSKELETAL/RHEUMATOLOGICAL Hx Musculoskeletal Disorders: Yes (arthritis) Hx Arthritis: Yes Hx Falls: No Hx Rheumatoid Arthritis: Yes - GASTROINTESTINAL Hx Gastrointestinal Disorders: Yes Hx Diverticulitis: Yes - GENITOURINARY/GYNECOLOGICAL Hx Genitourinary Disorders: Yes Hx Prostate Problems: Yes (BPH) - PSYCHIATRIC Hx Psychophysiologic Disorder: Yes Hx Anxiety: Yes Hx Depression: Yes Hx Substance Use: No - SURGICAL HISTORY Hx Surgeries: Yes Hx Coronary Stent: Yes (x 2) - ANESTHESIA Hx Anesthesia: Yes Hx Anesthesia Reactions: No Hx Malignant Hyperthermia: No Meds Allergies/Adverse Reactions: Allergies Allergy/AdvReac Type Severity Reaction Status Date / Time No Known Allergies Allergy Verified 04/17/18 04:14 Physical Exam - Constitutional Appears: No Acute Distress - Head Exam Head Exam: NORMAL INSPECTION - Eye Exam Eye Exam: PERRL - ENT Exam ENT Exam: Normal Exam - Neck Exam Neck exam: Positive for: Normal Inspection - Respiratory Exam Respiratory Exam: Decreased Breath Sounds (at bases) - Cardiovascular Exam Cardiovascular Exam: REGULAR RHYTHM - GI/Abdominal Exam GI & Abdominal Exam: Normal Bowel Sounds, Soft - Extremities Exam Extremities exam: Positive for: normal inspection - Back Exam Back exam: NORMAL INSPECTION - Neurological Exam Neurological exam: Alert, Oriented x3 Additional comments: No motor/sensory deficit. - Psychiatric Exam Psychiatric exam: Normal Mood - Skin Skin Exam: Warm Results - Vital Signs Recent Vital Signs: Last Vital Signs Temp 98.2 F 05/27/18 12:15 Pulse 98 H 05/27/18 12:15 Resp 20 05/27/18 12:15 BP 110/70 05/27/18 12:15 Pulse Ox 95 05/27/18 12:15 reviewed William - Labs Result Diagrams: 05/27/18 05:20 05/27/18 05:20 Labs: Laboratory Results - last 24 hr 05/26/18 05/26/18 05/27/18 19:37 19:37 05:20 WBC 12.6 H 12.4 H RBC 4.19 L 4.36 L Hgb 11.9 L 12.4 Hct 36.8 37.9 MCV 87.8 D 86.8 MCH 28.3 28.5 MCHC 32.3 L 32.8 L RDW 15.1 H 15.2 H Plt Count 319 346 MPV 10.0 Neut % (Auto) 53.9 Lymph % (Auto) 26.0 [place] % (Auto) 15.5 H Eos % (Auto) 3.4 Baso % (Auto) 1.2 Neut # (Auto) 6.8 Lymph # (Auto) 3.3 [place] # (Auto) 1.9 H Eos # (Auto) 0.4 Baso # (Auto) 0.2 Sodium 136 Potassium 4.5 Chloride 104 Carbon Dioxide 24 Anion Gap 13 BUN 16 Creatinine 1.0 Est GFR ( Amer) > 60 Est GFR (Non-Af Amer) > 60 Random Glucose 86 Calcium 9.3 Phosphorus Magnesium Total Bilirubin 0.3 AST 37 ALT 23 Alkaline Phosphatase 62 Troponin I < 0.0120 NT-Pro-B Natriuret Pep 115 Total Protein 6.9 Albumin 3.9 Globulin 3.0 Albumin/Globulin Ratio 1.3 Triglycerides Cholesterol LDL Cholesterol Direct HDL Cholesterol Thyroxine (T4) TSH 3rd Generation 05/27/18 05:20 WBC RBC Hgb Hct MCV MCH MCHC RDW Plt Count MPV Neut % (Auto) Lymph % (Auto) [place] % (Auto) Eos % (Auto) Baso % (Auto) Neut # (Auto) Lymph # (Auto) [place] # (Auto) Eos # (Auto) Baso # (Auto) Sodium 136 Potassium 4.7 Chloride 105 Carbon Dioxide 23 Anion Gap 13 BUN 16 Creatinine 0.8 Est GFR ( Amer) > 60 Est GFR (Non-Af Amer) > 60 Random Glucose 179 H Calcium 9.4 Phosphorus 3.5 Magnesium 1.9 Total Bilirubin 0.4 AST 32 ALT 23 Alkaline Phosphatase 55 Troponin I NT-Pro-B Natriuret Pep Total Protein 7.3 Albumin 4.1 Globulin 3.3 Albumin/Globulin Ratio 1.2 Triglycerides 46 D Cholesterol 118 LDL Cholesterol Direct 54 HDL Cholesterol 41 Thyroxine (T4) 8.14 TSH 3rd Generation 0.39 L reviewed J.P. - Imaging and Cardiology Chest x-ray Status: Report reviewed by me (J.P.) CT scan - chest Status: Report reviewed by me (J.P.) Assessment & Plan (1) COPD exacerbation Status: Acute Priority: High (2) Hypercholesteremia Status: Acute (3) ILD (interstitial lung disease) Status: Acute Priority: High (4) CAD (coronary artery disease) Status: Chronic Priority: High (5) OA (osteoarthritis) Status: Chronic Priority: Medium (6) RA (rheumatoid arthritis) Status: Chronic Priority: Medium (7) Depression Status: Acute Priority: Medium - Assessment and Plan (Free Text) Plan: F/U U C-S, U/A, EKG, Zithromax, Duoneb, Solu-Medrol.Elavil, Brillinta and rest of Tx. - Date & Time Date: 05/27/18
[2018-05-27] MEDS ORDERED: Oxycodone/Acetaminophen 5/325 mg Tab PO PRN (22:00)
[2018-05-28] MEDS ORDERED: Ipratropium 0.02% Inhal Soln (0.5 mg/2.5 ml) UD IH SCH
[2018-05-28] MEDS: MethylPREDNISolone 40 mg Vial IVP SCH ×3 (01:20→16:42)
[2018-05-28 02:32] LABS: URINE BILIRUBIN NEGATIVE (NEGATIVE); URINE BLOOD NEGATIVE (NEGATIVE); URINE CLARITY CLEAR (Clear); URINE COLOR COLORLESS (YELLOW); URINE GLUCOSE (UA) NEG (NEGATIVE); URINE LEUKOCYTE ESTERASE NEG Leu/uL (Negative); URINE PROTEIN NEGATIVE (NEGATIVE); URINE UROBILINOGEN 0.2-1.0 mg/dL (0.2-1.0)
[2018-05-28] MEDS: Ipratropium 0.02% Inhal Soln (0.5 mg/2.5 ml) UD IH SCH ×5 (08:00→23:12)
[2018-05-28] MEDS: Levalbuterol 0.63 MG/3 ML Inhal Soln UD INH SCH ×5 (08:00→23:12)
[2018-05-28] MEDS: LEFLUNOMIDE 10 MG PO SCH (09:02)
[2018-05-28] MEDS: TOFACITINIB CITRATE 11 MG PO SCH (09:03)
[2018-05-28] MEDS: Azithromycin 500 MG in Sodium Chloride 0.9% 250 ML IVPB SCH (09:18)
--- NOTE | 2018-05-28 13:28 | CP.PCM.PN ---
Subjective - Date & Time of Evaluation Date of Evaluation: 05/28/18 Time of Evaluation: 13:20 - Subjective Subjective: F/U COPD Exacerbation. breathing better, less chest congestion Objective - Vital Signs/Intake and Output Vital Signs (last 24 hours): Temp Pulse Resp BP Pulse Ox 98 F 64 20 113/69 96 05/28/18 12:44 05/28/18 12:44 05/28/18 12:44 05/28/18 12:44 05/28/18 12:44 - Medications Medications: Current Medications Amitriptyline HCl (Elavil) 10 mg PO HS [facility] Last Admin: 05/27/18 22:11 Dose: 10 mg Atorvastatin Calcium (Lipitor) 40 mg PO HS [facility] Last Admin: 05/27/18 22:10 Dose: 40 mg Folic Acid (Folic Acid) 1 mg PO DAILY [facility] Last Admin: 05/28/18 09:02 Dose: 1 mg Home Med (Leflunomide [Arava]) 10 mg PO DAILY [facility] Last Admin: 05/28/18 09:02 Dose: 10 mg Home Med (Tofacitinib Citrate [Xeljanz Xr]) 11 mg PO DAILY [facility] Last Admin: 05/28/18 09:03 Dose: 11 mg Hydroxychloroquine Sulfate (Plaquenil) 200 mg PO Q12 [facility]; Protocol Last Admin: 05/28/18 09:02 Dose: 200 mg Azithromycin 500 mg/ Sodium (Chloride) 250 mls @ 250 mls/hr IVPB DAILY [facility]; Protocol Last Admin: 05/28/18 09:18 Dose: 250 mls/hr Ipratropium Sieper (Atrovent) 0.5 mg IH RQ4 [facility] Last Admin: 05/28/18 11:54 Dose: 0.5 mg Levalbuterol HCl (Xopenex) 0.63 mg INH RQ4 [facility] Last Admin: 05/28/18 11:54 Dose: 0.63 mg Lisinopril (Zestril) 10 mg PO DAILY [facility] Last Admin: 05/28/18 09:03 Dose: 10 mg Methylprednisolone (Solu-Medrol) 40 mg IVP Q8 OTM Last Admin: 05/28/18 09:03 Dose: 40 mg Oxycodone/Acetaminophen (Percocet 5/325 Mg Tab) 1 tab PO Q4 PRN PRN Reason: Pain, moderate (4-7) Stop: 05/30/18 22:01 Tamsulosin HCl (Flomax) 0.4 mg PO HS [facility] Last Admin: 05/27/18 22:11 Dose: 0.4 mg Ticagrelor (Brilinta) 60 mg PO BID [facility] Last Admin: 05/28/18 09:02 Dose: 60 mg - Labs Labs: 05/27/18 05:20 05/27/18 05:20 - Constitutional Appears: No Acute Distress - Head Exam Head Exam: NORMAL INSPECTION - Eye Exam Eye Exam: PERRL - ENT Exam ENT Exam: Normal Exam - Neck Exam Neck Exam: Normal Inspection - Respiratory Exam Respiratory Exam: Decreased Breath Sounds (at bases) - Cardiovascular Exam Cardiovascular Exam: REGULAR RHYTHM - GI/Abdominal Exam GI & Abdominal Exam: Soft, Normal Bowel Sounds - Extremities Exam Extremities Exam: Normal Inspection - Back Exam Back Exam: NORMAL INSPECTION - Neurological Exam Neurological Exam: Alert, Oriented x3. absent: Motor Sensory Deficit - Psychiatric Exam Psychiatric exam: Normal Mood - Skin Skin Exam: Warm Assessment and Plan (1) COPD exacerbation Status: Acute (2) Hypercholesteremia Status: Acute (3) ILD (interstitial lung disease) Status: Acute (4) CAD (coronary artery disease) Status: Chronic (5) OA (osteoarthritis) Status: Chronic (6) RA (rheumatoid arthritis) Status: Chronic (7) Depression Status: Acute - Assessment and Plan (Free Text) Plan: taper Solu Medrol, continue Xopenex, Atrovent, Brilinta, Lipitor, Plaquenil and rest of Tx
[2018-05-29] MEDS: MethylPREDNISolone 40 mg Vial IVP SCH ×4 (00:10→23:04)
[2018-05-29] MEDS: Levalbuterol 0.63 MG/3 ML Inhal Soln UD INH SCH ×6 (04:35→23:53)
[2018-05-29] MEDS: Ipratropium 0.02% Inhal Soln (0.5 mg/2.5 ml) UD IH SCH ×6 (04:35→23:53)
[2018-05-29] MEDS: TOFACITINIB CITRATE 11 MG PO SCH (09:45)
[2018-05-29] MEDS: LEFLUNOMIDE 10 MG PO SCH (09:46)
[2018-05-29] MEDS: Azithromycin 500 MG in Sodium Chloride 0.9% 250 ML IVPB SCH (09:46)
--- NOTE | 2018-05-29 15:43 | RAD ---
Date of service: 05/29/2018 HISTORY: pneumonia COMPARISON: Chest radiograph dated 05/26/2018. TECHNIQUE: Chest PA and lateral views FINDINGS: LUNGS: Stable chronic prominence of the bilateral interstitial markings. PLEURA: No significant pleural effusion identified. No pneumothorax apparent. CARDIOVASCULAR: Aortic atherosclerotic calcifications. Cardiomediastinal silhouette stably enlarged OSSEOUS STRUCTURES: No significant abnormalities. VISUALIZED UPPER ABDOMEN: Normal. OTHER FINDINGS: None. IMPRESSION: No active disease.
--- NOTE | 2018-05-29 16:47 | CP.PCM.PN ---
Subjective - Date & Time of Evaluation Date of Evaluation: 05/29/18 Time of Evaluation: 13:50 - Subjective Subjective: F/U COPD Exacerbation Chest congested today, no SOB Objective - Vital Signs/Intake and Output Vital Signs (last 24 hours): Temp Pulse Resp BP Pulse Ox 97.6 F 69 18 124/74 94 L 05/29/18 16:13 05/29/18 16:13 05/29/18 16:13 05/29/18 16:13 05/29/18 16:13 - Medications Medications: Current Medications Amitriptyline HCl (Elavil) 10 mg PO HS [facility] Last Admin: 05/28/18 21:45 Dose: 10 mg Atorvastatin Calcium (Lipitor) 40 mg PO HS [facility] Last Admin: 05/28/18 21:45 Dose: 40 mg Folic Acid (Folic Acid) 1 mg PO DAILY [facility] Last Admin: 05/29/18 09:45 Dose: 1 mg Home Med (Leflunomide [Arava]) 10 mg PO DAILY [facility] Last Admin: 05/29/18 09:46 Dose: 10 mg Home Med (Tofacitinib Citrate [Xeljanz Xr]) 11 mg PO DAILY [facility] Last Admin: 05/29/18 09:45 Dose: 11 mg Hydroxychloroquine Sulfate (Plaquenil) 200 mg PO Q12 [facility]; Protocol Last Admin: 05/29/18 09:45 Dose: 200 mg Azithromycin 500 mg/ Sodium (Chloride) 250 mls @ 250 mls/hr IVPB DAILY [facility]; Protocol Last Admin: 05/29/18 09:46 Dose: 250 mls/hr Ipratropium [place] (Atrovent) 0.5 mg IH RQ4 [facility] Last Admin: 05/29/18 15:33 Dose: 0.5 mg Levalbuterol HCl (Xopenex) 0.63 mg INH RQ4 [facility] Last Admin: 05/29/18 15:32 Dose: 0.63 mg Lisinopril (Zestril) 10 mg PO DAILY [facility] Last Admin: 05/29/18 09:45 Dose: 10 mg Methylprednisolone (Solu-Medrol) 30 mg IVP Q8H [facility] Last Admin: 05/29/18 09:44 Dose: 30 mg Oxycodone/Acetaminophen (Percocet 5/325 Mg Tab) 1 tab PO Q4 PRN PRN Reason: Pain, moderate (4-7) Stop: 05/30/18 22:01 Last Admin: 05/28/18 13:29 Dose: 1 tab Tamsulosin HCl (Flomax) 0.4 mg PO HS [facility] Last Admin: 05/28/18 21:45 Dose: 0.4 mg Ticagrelor (Brilinta) 60 mg PO BID [facility] Last Admin: 05/29/18 09:45 Dose: 60 mg - Labs Labs: 05/27/18 05:20 05/27/18 05:20 - Constitutional Appears: No Acute Distress - Head Exam Head Exam: NORMAL INSPECTION - Eye Exam Eye Exam: PERRL - ENT Exam ENT Exam: Normal Exam - Neck Exam Neck Exam: Normal Inspection - Respiratory Exam Respiratory Exam: Decreased Breath Sounds (at bases), Wheezes (scattered upper lobes) - Cardiovascular Exam Cardiovascular Exam: REGULAR RHYTHM - GI/Abdominal Exam GI & Abdominal Exam: Soft, Normal Bowel Sounds - Extremities Exam Extremities Exam: Normal Inspection - Back Exam Back Exam: NORMAL INSPECTION - Neurological Exam Neurological Exam: Alert, Oriented x3. absent: Motor Sensory Deficit - Psychiatric Exam Psychiatric exam: Normal Mood - Skin Skin Exam: Warm Assessment and Plan (1) COPD exacerbation Status: Acute (2) Hypercholesteremia Status: Acute (3) ILD (interstitial lung disease) Status: Acute (4) CAD (coronary artery disease) Status: Chronic (5) OA (osteoarthritis) Status: Chronic (6) RA (rheumatoid arthritis) Status: Chronic (7) Depression Status: Acute - Assessment and Plan (Free Text) Plan: continue Solu Medrol, Xopenex, Atrovent and rest of treatment
[2018-05-30] MEDS: Ipratropium 0.02% Inhal Soln (0.5 mg/2.5 ml) UD IH SCH ×6 (05:00→23:23)
[2018-05-30] MEDS: Levalbuterol 0.63 MG/3 ML Inhal Soln UD INH SCH ×6 (05:00→23:22)
[2018-05-30] MEDS: LEFLUNOMIDE 10 MG PO SCH (09:52)
[2018-05-30] MEDS: MethylPREDNISolone 40 mg Vial IVP SCH ×2 (09:52→16:58)
[2018-05-30] MEDS: TOFACITINIB CITRATE 11 MG PO SCH (09:53)
[2018-05-30] MEDS: Azithromycin 500 MG in Sodium Chloride 0.9% 250 ML IVPB SCH (09:55)
--- NOTE | 2018-05-30 19:55 | CP.PCM.PN ---
Subjective - Date & Time of Evaluation Date of Evaluation: 05/30/18 - Subjective Subjective: F/U COPD Exacerbation. cough with scanty amount of yellowish flegm, chest congestion improved Objective - Vital Signs/Intake and Output Vital Signs (last 24 hours): Temp Pulse Resp BP Pulse Ox 98.0 F 59 L 18 127/75 95 05/30/18 16:24 05/30/18 16:24 05/30/18 16:24 05/30/18 16:24 05/30/18 16:24 - Medications Medications: Current Medications Amitriptyline HCl (Elavil) 10 mg PO HS [facility] Last Admin: 05/29/18 21:39 Dose: 10 mg Atorvastatin Calcium (Lipitor) 40 mg PO HS [facility] Last Admin: 05/29/18 21:39 Dose: 40 mg Folic Acid (Folic Acid) 1 mg PO DAILY [facility] Last Admin: 05/30/18 09:51 Dose: 1 mg Home Med (Leflunomide [Arava]) 10 mg PO DAILY [facility] Last Admin: 05/30/18 09:52 Dose: 10 mg Home Med (Tofacitinib Citrate [Xeljanz Xr]) 11 mg PO DAILY [facility] Last Admin: 05/30/18 09:53 Dose: 11 mg Hydroxychloroquine Sulfate (Plaquenil) 200 mg PO Q12 [facility]; Protocol Last Admin: 05/30/18 09:52 Dose: 200 mg Azithromycin 500 mg/ Sodium (Chloride) 250 mls @ 250 mls/hr IVPB DAILY [facility]; Protocol Last Admin: 05/30/18 09:55 Dose: 250 mls/hr Ipratropium [place] (Atrovent) 0.5 mg IH RQ4 [facility] Last Admin: 05/30/18 19:54 Dose: 0.5 mg Levalbuterol HCl (Xopenex) 0.63 mg INH RQ4 [facility] Last Admin: 05/30/18 19:54 Dose: 0.63 mg Lisinopril (Zestril) 10 mg PO DAILY [facility] Last Admin: 05/30/18 09:54 Dose: 10 mg Methylprednisolone (Solu-Medrol) 30 mg IVP Q8H [facility] Last Admin: 05/30/18 16:58 Dose: 30 mg Oxycodone/Acetaminophen (Percocet 5/325 Mg Tab) 1 tab PO Q4 PRN PRN Reason: Pain, moderate (4-7) Stop: 05/30/18 22:01 Last Admin: 05/28/18 13:29 Dose: 1 tab Tamsulosin HCl (Flomax) 0.4 mg PO HS [facility] Last Admin: 05/29/18 21:39 Dose: 0.4 mg Ticagrelor (Brilinta) 60 mg PO BID [facility] Last Admin: 05/30/18 16:58 Dose: 60 mg - Labs Labs: 05/27/18 05:20 05/27/18 05:20 - Constitutional Appears: No Acute Distress - Head Exam Head Exam: NORMAL INSPECTION - Eye Exam Eye Exam: PERRL - ENT Exam ENT Exam: Normal Exam - Neck Exam Neck Exam: Normal Inspection - Respiratory Exam Respiratory Exam: Decreased Breath Sounds (at bases), Wheezes (scattered upper lung monsalve) - Cardiovascular Exam Cardiovascular Exam: REGULAR RHYTHM - GI/Abdominal Exam GI & Abdominal Exam: Soft, Normal Bowel Sounds - Extremities Exam Extremities Exam: Normal Inspection - Back Exam Back Exam: NORMAL INSPECTION - Neurological Exam Neurological Exam: Alert, Oriented x3. absent: CN II-XII Intact, Motor Sensory Deficit - Psychiatric Exam Psychiatric exam: Normal Affect, Normal Mood - Skin Skin Exam: Warm Assessment and Plan (1) COPD exacerbation Status: Acute (2) Hypercholesteremia Status: Acute (3) ILD (interstitial lung disease) Status: Acute (4) CAD (coronary artery disease) Status: Chronic (5) OA (osteoarthritis) Status: Chronic (6) RA (rheumatoid arthritis) Status: Chronic (7) Depression Status: Acute - Assessment and Plan (Free Text) Plan: continue Xopenex, Atrovent,Solu Medrol, Zithromax, Brilinta, Lipitor , Plaquenil and rest of treatment
[2018-05-31] MEDS: MethylPREDNISolone 40 mg Vial IVP SCH ×3 (00:57→15:15)
[2018-05-31 02:16] VITALS: RESP 20; O2SAT 95
[2018-05-31] MEDS: Levalbuterol 0.63 MG/3 ML Inhal Soln UD INH SCH ×4 (05:00→15:15)
[2018-05-31] MEDS: Ipratropium 0.02% Inhal Soln (0.5 mg/2.5 ml) UD IH SCH ×4 (05:00→15:41)
[2018-05-31] MEDS: TOFACITINIB CITRATE 11 MG PO SCH (08:36)
[2018-05-31] MEDS: LEFLUNOMIDE 10 MG PO SCH (08:37)
[2018-05-31 08:43] VITALS: BP 144/84
[2018-05-31] MEDS: Azithromycin 500 MG in Sodium Chloride 0.9% 250 ML IVPB SCH (08:43)
[2018-05-31 08:59] VITALS: PULSE 66; TEMP 97.9
--- NOTE | 2018-05-31 15:48 | CP.PCM.DIS ---
Provider - Provider Date of Admission: 05/27/18 13:19 Attending physician: Kareem Son MD Time Spent in preparation of Discharge (in minutes): 35 Diagnosis - Discharge Diagnosis (1) COPD exacerbation Status: Acute Priority: High (2) Hypercholesteremia Status: Acute (3) ILD (interstitial lung disease) Status: Acute Priority: High (4) CAD (coronary artery disease) Status: Chronic Priority: High (5) OA (osteoarthritis) Status: Chronic Priority: Medium (6) RA (rheumatoid arthritis) Status: Chronic Priority: Medium (7) Depression Status: Acute Priority: Medium Hospital Course - Lab Results Lab Results: Micro Results 05/28/18 01:38 Urine,Clean Catch Urine Culture - Final No Growth (<1,000 CFU/ML) Most Recent Lab Values WBC 12.4 K/uL (4.8-10.8) H 05/27/18 05:20 RBC 4.36 Mil/uL (4.40-5.90) L 05/27/18 05:20 Hgb 12.4 g/dL (12.0-18.0) 05/27/18 05:20 Hct 37.9 % (35.0-51.0) 05/27/18 05:20 MCV 86.8 fl (80.0-94.0) 05/27/18 05:20 MCH 28.5 pg (27.0-31.0) 05/27/18 05:20 MCHC 32.8 g/dL (33.0-37.0) L 05/27/18 05:20 RDW 15.2 % (11.5-14.5) H 05/27/18 05:20 Plt Count 346 K/uL (130-400) 05/27/18 05:20 MPV 10.0 fl (7.2-11.7) 05/26/18 19:37 Neut % (Auto) 53.9 % (50.0-75.0) 05/26/18 19:37 Lymph % (Auto) 26.0 % (20.0-40.0) 05/26/18 19:37 Carbon % (Auto) 15.5 % (0.0-10.0) H 05/26/18 19:37 Eos % (Auto) 3.4 % (0.0-4.0) 05/26/18 19:37 Baso % (Auto) 1.2 % (0.0-2.0) 05/26/18 19:37 Neut # (Auto) 6.8 K/uL (1.8-7.0) 05/26/18 19:37 Lymph # (Auto) 3.3 K/uL (1.0-4.3) 05/26/18 19:37 Carbon # (Auto) 1.9 K/uL (0.0-0.8) H 05/26/18 19:37 Eos # (Auto) 0.4 K/uL (0.0-0.7) 05/26/18 19:37 Baso # (Auto) 0.2 K/uL (0.0-0.2) 05/26/18 19:37 Sodium 136 mmol/l (132-148) 05/27/18 05:20 Potassium 4.7 MMOL/L (3.6-5.0) 05/27/18 05:20 Chloride 105 mmol/L (98-107) 05/27/18 05:20 Carbon Dioxide 23 mmol/L (22-30) 05/27/18 05:20 Anion Gap 13 (10-20) 05/27/18 05:20 BUN 16 mg/dl (9-20) 05/27/18 05:20 Creatinine 0.8 mg/dl (0.8-1.5) 05/27/18 05:20 Est GFR ( Amer) > 60 05/27/18 05:20 Est GFR (Non-Af Amer) > 60 05/27/18 05:20 Random Glucose 179 mg/dL (75-110) H 05/27/18 05:20 Calcium 9.4 mg/dL (8.4-10.2) 05/27/18 05:20 Phosphorus 3.5 mg/dl (2.5-4.5) 05/27/18 05:20 Magnesium 1.9 MG/DL (1.6-2.3) 05/27/18 05:20 Total Bilirubin 0.4 mg/dl (0.2-1.3) 05/27/18 05:20 AST 32 U/L (17-59) 05/27/18 05:20 ALT 23 U/L (21-72) 05/27/18 05:20 Alkaline Phosphatase 55 U/L (38-126) 05/27/18 05:20 Troponin I < 0.0120 ng/mL (0.00-0.120) 05/26/18 19:37 NT-Pro-B Natriuret Pep 115 pg/ml (0-900) 05/26/18 19:37 Total Protein 7.3 G/DL (6.3-8.2) 05/27/18 05:20 Albumin 4.1 g/dL (3.5-5.0) 05/27/18 05:20 Globulin 3.3 gm/dL (2.2-3.9) 05/27/18 05:20 Albumin/Globulin Ratio 1.2 (1.0-2.1) 05/27/18 05:20 Triglycerides 46 mg/DL (0-149) D 05/27/18 05:20 Cholesterol 118 mg/dL (0-199) 05/27/18 05:20 LDL Cholesterol Direct 54 mg/dL (0-129) 05/27/18 05:20 HDL Cholesterol 41 MG/DL (30-70) 05/27/18 05:20 Thyroxine (T4) 8.14 ug/dl (5.5-11.0) 05/27/18 05:20 TSH 3rd Generation 0.39 mIU/ML (0.46-4.68) L 05/27/18 05:20 Urine Color Colorless (YELLOW) 05/28/18 01:38 Urine Clarity Clear (Clear) 05/28/18 01:38 Urine pH 6.0 (5.0-8.0) 05/28/18 01:38 Ur Specific [place] < 1.005 (1.003-1.030) 05/28/18 01:38 Urine Protein Negative mg/dL (NEGATIVE) 05/28/18 01:38 Urine Glucose (UA) Neg mg/dL (NEGATIVE) 05/28/18 01:38 Urine Ketones Negative mg/dL (NEGATIVE) 05/28/18 01:38 Urine Blood Negative (NEGATIVE) 05/28/18 01:38 Urine Nitrate Negative (NEGATIVE) 05/28/18 01:38 Urine Bilirubin Negative (NEGATIVE) 05/28/18 01:38 Urine Urobilinogen 0.2-1.0 mg/dL (0.2-1.0) 05/28/18 01:38 Ur Leukocyte Esterase Neg Mian/uL (Negative) 05/28/18 01:38 Urine RBC (Auto) 1 /hpf (0-3) 05/28/18 01:38 Urine Microscopic WBC < 1 /hpf (0-5) 05/28/18 01:38 - Date & Time of H&P Date of H&P: 05/27/18 Discharge Exam - Head Exam Head Exam: NORMAL INSPECTION - Eye Exam Eye Exam: PERRL - ENT Exam ENT Exam: Normal Exam - Neck Exam Neck exam: Normal Inspection - Respiratory Exam Respiratory Exam: Decreased Breath Sounds (at bases), Wheezes (scattered upper lungfields) - Cardiovascular Exam Cardiovascular Exam: REGULAR RHYTHM - GI/Abdominal Exam GI & Abdominal Exam: Normal Bowel Sounds, Soft - Extremities Exam Extremities exam: normal inspection - Back Exam Back exam: NORMAL INSPECTION - Neurological Exam Neurological exam: Alert, Oriented x3 Additional comments: No motor sensory deficit. - Psychiatric Exam Psychiatric exam: Normal Affect, Normal Mood - Skin Skin Exam: Warm Discharge Plan - Discharge Medications Prescriptions: Prednisone [Robert] 5 mg PO DAILY #30 tablet. Azithromycin [Zithromax] 500 mg PO DAILY #3 tablet - Follow Up Plan Condition: STABLE Disposition: HOME/ ROUTINE Patient education suggested?: Yes Instructions: Exacerbation of COPD (DC) Additional Instructions: Follow up with MD 1 week from now. Referrals: Kareem Son MD [Family Provider] -
--- NOTE | 2018-06-02 15:01 | PQF ---
PROVIDER RESPONSE TEXT: RA present bilateral knees and b/l hands. No specific manifestation of organ involvement. REVIEWER QUERY TEXT: Rheumatoid Arthritis Specificity Rheumatoid arthritis is documented in the Medical Record. Please clarify: --- specific site --- laterality. --- specify any manifestations or organ involvement Such as -- Bursitis -- Felty?s syndrome -- Lung disease -- Juvenile (Please specify type) -- Myopathy -- Nodule -- Organ involvement (Please indicate organ involved and specific disorder) -- Polyneuropathy -- Vasculitis -- With Rheumatoid Factor -- Other, please specify The patient's Clinical Indicators include: History of RA and ILD. Rx: Plaquenil, Arava, Xeljanz Xr Query created by: Elaine Madrid on 05/28/2018 8:41 AM Electronically signed by: Kareem Son MD 06/02/2018 2:59 PM
== END 2018-05-31 15:20 | disposition home or self-care (01) | DRG 191 ==
LOC: SUPCPDRO 16:50 → H.ER 16:50 → H.ERHOLD 20:06 → H.TEL 05-27 00:01 → OBSVTOIN 05-27 13:19
PROVIDERS: ADMIT Internal Medicine Pulmonary Disease; ATTEND Internal Medicine Pulmonary Disease
PROC: 3E0234Z Introduction of Serum, Toxoid and Vaccine into Muscle, Percutaneous Approach (ICD-10-PCS; principal; 2018-05-27)
DX: J43.9 Emphysema, unspecified (principal); J84.9 Interstitial pulmonary disease, unspecified; J84.10 Pulmonary fibrosis, unspecified; F41.8 Other specified anxiety disorders; E78.00 Pure hypercholesterolemia, unspecified; F32.9 Major depressive disorder, single episode, unspecified; I10 Essential (primary) hypertension; G47.30 Sleep apnea, unspecified; M81.0 Age-related osteoporosis without current pathological fracture; I25.10 Atherosclerotic heart disease of native coronary artery without angina pectoris; Z95.5 Presence of coronary angioplasty implant and graft; Z23 Encounter for immunization; F41.9 Anxiety disorder, unspecified; N40.0 Benign prostatic hyperplasia without lower urinary tract symptoms; Z87.891 Personal history of nicotine dependence; M19.90 Unspecified osteoarthritis, unspecified site; M06.842 Other specified rheumatoid arthritis, left hand; M06.841 Other specified rheumatoid arthritis, right hand; M06.862 Other specified rheumatoid arthritis, left knee; M06.861 Other specified rheumatoid arthritis, right knee

== ENCOUNTER 2018-06-18 14:09 | Inpatient (IN) | payer MEDICARE, MEDICAID ==
[2018-06-18 14:27] VITALS: BMI 31.3
[2018-06-18] MEDS ORDERED: Albuterol-Ipratrop 3 mg / 0.5 (3 ml) UD IH STA ×3 (14:41→16:42)
--- NOTE | 2018-06-18 14:45 | ED PDOC ---
HPI: CCC, URI, Sore Throat Time Seen by Provider: 06/18/18 14:33 Chief Complaint (Nursing): Shortness Of Breath History Per: Patient Onset/Duration Of Symptoms: Days (2) Current Symptoms Are (Timing): Still Present Associated Symptoms: Cough, Sputum. denies: Fever Severity: Moderate Additional Complaint(s): Cough productive yellow sputum x 2 days assoc with SOB and wheezing. denies chest pain or fever. Past Medical History Vital Signs: Last Vital Signs Temp 97.9 F 06/18/18 14:26 Pulse 81 06/18/18 14:26 Resp 16 06/18/18 14:26 BP 126/81 06/18/18 14:26 Pulse Ox 96 06/18/18 14:26 Primary Care Provider: Kareem Son - Medical History PMH: Anemia, Anxiety, Arthritis, Asthma, Benign Prostatic Hyperplasia, B ronchitis, CAD, COPD, Depression, Diverticulitis, Emphysema, HTN, Hypercholesterolemia, Osteoporosis, Pneumonia, Rheumatoid Arthritis, Sleep Apnea Denies: HIV, Chronic Kidney Disease - Surgical History Surgical History: Coronary Stent (x 2) - Family History Family History: States: [place] (father and brother), Hypertension - Home Medications Home Medications: Ambulatory Orders Medication Instructions Recorded Atorvastatin [Lipitor] 40 mg PO HS 04/21/16 Amitriptyline [Elavil] 10 mg PO HS 11/28/16 Hydroxychloroquine Sulfate 200 mg PO Q12 11/28/16 [Plaquenil] Albuterol/Ipratropium [Duoneb 3 3 ml INH TID PRN 10/06/17 mg/0.5 mg (3 ml) UD] Folic Acid 1 mg PO DAILY 12/30/17 Leflunomide [Arava] 10 mg PO DAILY 12/30/17 Ticagrelor [Brilinta] 60 mg PO BID 12/30/17 Tamsulosin [Flomax] 0.4 mg PO HS cap 01/02/18 Acyclovir/Hydrocortisone [Xerese 30 g TOP TID 05/26/18 5%-1% Cream] Lisinopril [Zestril] 10 mg PO DAILY 05/26/18 Tofacitinib Citrate [Xeljanz Xr] 11 mg PO DAILY 05/26/18 Azithromycin [Zithromax] 500 mg PO DAILY #3 tablet 05/31/18 Prednisone [Robert] 5 mg PO DAILY #30 tablet. 05/31/18 - Allergies Allergies/Adverse Reactions: Allergies Allergy/AdvReac Type Severity Reaction Status Date / Time No Known Allergies Allergy Verified 04/17/18 04:14 Review of Systems ROS Statement: Except As Marked, All Systems Reviewed And Found Negative Constitutional: Negative for: Fever Respiratory: Positive for: Cough, Shortness of Breath, Sputum, Wheezing Physical Exam - Reviewed Nursing Documentation Reviewed: Yes Vital Signs Reviewed: Yes - Physical Exam Appears: Positive for: Non-toxic, No Acute Distress Head Exam: Positive for: ATRAUMATIC, NORMAL INSPECTION, NORMOCEPHALIC Skin: Positive for: Normal Color, Warm, DRY Eye Exam: Positive for: EOMI, Normal appearance, PERRL ENT: Positive for: Normal ENT Inspection Neck: Positive for: Normal, Painless ROM Cardiovascular/Chest: Positive for: Regular Rate, Rhythm Respiratory: Positive for: Rhonchi, Wheezing. Negative for: Respiratory Dis tress Gastrointestinal/Abdominal: Positive for: Normal Exam, Soft Back: Positive for: Normal Inspection Extremity: Positive for: Normal ROM Neurological/Psych: Positive for: Awake, Alert, Normal Tone - Laboratory Results Result Diagrams: 06/18/18 15:17 06/18/18 15:17 - ECG O2 Sat by Pulse Oximetry: 96 Disposition - Clinical Impression Clinical Impression: COPD exacerbation - Patient ED Disposition Is Patient to be Admitted: Yes - Disposition Referrals: Kareem Son MD [Primary Care Provider] - Disposition Time: 16:42 Condition: FAIR Forms: [facility] (Welsh) - Pt Status Changed To: Hospital Disposition Of: Observation - POA Present On Arrival: None
[2018-06-18 15:20] LABS: VENOUS BLOOD GAS BASE EXCESS 2.6 mmol/L (0.0-2.0); VENOUS BLOOD GAS PCO2 41 mmHg (40-60); VENOUS BLOOD GAS PO2 46 mm/Hg (30-55); VENOUS BLOOD PH 7.43 (7.32-7.43)
[2018-06-18] MEDS ORDERED: Albuterol-Ipratrop 3 mg / 0.5 (3 ml) UD ONE ×2 (15:23→16:50)
--- NOTE | 2018-06-18 15:42 | RAD ---
Date of service: 06/18/2018 HISTORY: Cough. COMPARISON: 05/29/2018. Two view chest. 05/26/2018 CT thorax TECHNIQUE: Chest PA and lateral views FINDINGS: LUNGS: Stable interstitial lung disease better visualized on the recent CT scan. PLEURA: No significant pleural effusion identified. No pneumothorax apparent. CARDIOVASCULAR: No aortic atherosclerotic calcification present. Normal cardiac size. No pulmonary vascular congestion. OSSEOUS STRUCTURES: No significant abnormalities. VISUALIZED UPPER ABDOMEN: Normal. OTHER FINDINGS: None. IMPRESSION: No active disease. No significant interval change compared to the prior examination(s).
[2018-06-18 16:00] LABS: BASO # 0.1 K/uL (0.0-0.2); BASO % 0.4 % (0.0-2.0); EOS % 0.1 % (0.0-4.0); HEMOGLOBIN 10.5 g/dL (12.0-18.0); LYMPH # 0.5 K/uL (1.0-4.3); LYMPH % 3.5 % (20.0-40.0); MEAN CELL VOLUME 88.5 fl (80.0-94.0); MEAN CORPUSCULAR HEMOGLOBIN 28.8 pg (27.0-31.0); MEAN CORPUSCULAR HGB CONC 32.6 g/dL (33.0-37.0); MEAN PLATELET VOLUME 10.4 fl (7.2-11.7); MONO # 1.1 K/uL (0.0-0.8); MONO % 8.2 % (0.0-10.0); NEUT # 11.8 K/uL (1.8-7.0); NEUT % 87.8 % (50.0-75.0); PLATELET COUNT 187 K/uL (130-400); RBC 3.65 Mil/uL (4.40-5.90); WHITE BLOOD COUNT 13.5 K/uL (4.8-10.8)
[2018-06-18 16:10] LABS: ALB/GLOB RATIO 1.4 (1.0-2.1); ALBUMIN 3.6 g/dL (3.5-5.0); ALT/SGPT 29 U/L (21-72); AST/SGOT 29 U/L (17-59); BLOOD UREA NITROGEN 37 mg/dl (9-20); GFR NON-AFRICAN AMERICAN > 60
[2018-06-18 16:57] LABS: EOSINOPHIL 1 % (0-7); LYMPHOCYTE 3 % (20-50); MONOCYTE 6 % (0-10); NEUTROPHIL 90 % (42-75); TOTAL CELLS COUNTED 100
[2018-06-18 16:58] LABS: ANISOCYTOSIS SLIGHT; PLATELET ESTIMATE NORMAL (NORMAL); POIKILOCYTOSIS SLIGHT
[2018-06-19] MEDS: MethylPREDNISolone 40 mg Vial IVP SCH ×3 (00:11→16:20)
[2018-06-19] MEDS: Albuterol-Ipratrop 3 mg / 0.5 (3 ml) UD INH PRN ×4 (00:40→22:36)
[2018-06-19] MEDS ORDERED: methylPREDNISolone 40 MG in Sodium Chloride 0.9% 50 ML IVPB SCH (01:00)
[2018-06-19] MEDS: Azithromycin 500 MG in Sodium Chloride 0.9% 250 ML IVPB SCH ×2 (01:26→21:54)
[2018-06-19] MEDS: Pantoprazole 40 mg EC Tab PO SCH ×2 (06:11→08:58)
[2018-06-19 06:49] LABS: HEMOGLOBIN 9.7 g/dL (12.0-18.0); LYMPH # 0.2 K/uL (1.0-4.3); LYMPH % 1.9 % (20.0-40.0); MEAN CELL VOLUME 87.7 fl (80.0-94.0); MEAN CORPUSCULAR HEMOGLOBIN 28.7 pg (27.0-31.0); MEAN CORPUSCULAR HGB CONC 32.8 g/dL (33.0-37.0); MEAN PLATELET VOLUME 10.6 fl (7.2-11.7); MONO # 0.3 K/uL (0.0-0.8); NEUT # 10.5 K/uL (1.8-7.0); NEUT % 95.1 % (50.0-75.0); NRBC % 0.1 % (0.0-0.0); RBC 3.39 Mil/uL (4.40-5.90); RED CELL DISTRIBUTION WIDTH 16.6 % (11.5-14.5)
[2018-06-19 07:22] LABS: ALB/GLOB RATIO 1.3 (1.0-2.1); ALBUMIN 3.2 g/dL (3.5-5.0); ALT/SGPT 26 U/L (21-72); AST/SGOT 23 U/L (17-59); BLOOD UREA NITROGEN 26 mg/dl (9-20); CALCIUM 8.4 mg/dL (8.4-10.2); GFR NON-AFRICAN AMERICAN > 60
[2018-06-19] MEDS: LEFLUNOMIDE 10 MG PO SCH (08:56)
--- NOTE | 2018-06-19 11:53 | CARD ---
APPROVED REPORT Date of service: 06/18/2018 EKG Measurement Heart [id number] <Conclusion> Normal sinus rhythm with sinus arrhythmia Normal ECG
--- NOTE | 2018-06-19 17:15 | CP.PCM.HP ---
History of Present Illness - History of Present Illness History of Present Illness: CC: SOB. 72 y/o M, PMHx includes: COPD, Emphysema, ILD, CAD with Cardiac Stent, R/A, severe O/A. Pt came to [facility] on 06/18/18 to be evaluated for moderate SOB x 2 days, increased on DOA, associated to non productive inte rmittent cough and wheezing. Pt using nebulizer Tx at home with no relief. Worsening symptoms: GREEN and at rest. Aggravated factor: Walking/exercise/ ADL's. Pt denied: Fever, chills, n/v/d, abdominal pain, urinary symptoms, CP, palpitations, sick contact, recent travel out of [facility]. CXR: No active disease. EKG: Normal sinus rhythm with sinus arrhythmia. Present on Admission - Present on Admission Any Indicators Present on Admission: No Review of Systems - Constitutional Constitutional: Other (negative) - EENT Eyes: Requires Corrective Lenses Ears: Other (negative) Nose/Mouth/Throat: Other (negative) - Cardiovascular Cardiovascular: Dyspnea (at rest) - Respiratory Respiratory: Cough, Dyspnea, Dyspnea on Exertion, Wheezing - Gastrointestinal Gastrointestinal: Other (negative) - Genitourinary Genitourinary: Other (negative) - Musculoskeletal Musculoskeletal: Arthralgias - Integumentary Integumentary: Other (negative) - Neurological Neurological: Other (negative) - Psychiatric Psychiatric: Other (negative) - Endocrine Endocrine: Other (negative) - Hematologic/Lymphatic Hematologic: Other (negative) Past Patient History - Infectious Disease Hx of Infectious Diseases: None - Past Medical History & Family History Past Medical History?: Yes Pertinent Family History: Father and Brother: HTN, [place]. - Past Social History Smoking Status: Former Smoker Alcohol: None Drugs: Denies Home Situation {Lives}: Alone - CARDIAC Hx Cardiac Disorders: Yes Hx Hypercholesterolemia: Yes Hx Hypertension: Yes - PULMONARY Hx Respiratory Disorders: Yes Hx Asthma: Yes Hx Bronchitis: Yes Hx Chronic Obstructive Pulmonary Disease (COPD): Yes Hx Emphysema: Yes Hx Pneumonia: Yes - NEUROLOGICAL Hx Neurological Disorder: Yes Hx Dizziness: Yes - HEENT Hx HEENT Problems: Yes (cataracts) - RENAL Hx Chronic Kidney Disease: No - ENDOCRINE/METABOLIC Hx Endocrine Disorders: No Hx Diabetes Mellitus Type 2: No - HEMATOLOGICAL/ONCOLOGICAL Hx Blood Disorders: Yes Hx AIDS: No Hx Anemia: Yes Hx Human Immunodeficiency Virus (HIV): No - INTEGUMENTARY Hx Dermatological Problems: No - MUSCULOSKELETAL/RHEUMATOLOGICAL Hx Musculoskeletal Disorders: Yes Hx Arthritis: Yes Hx Falls: No Hx Rheumatoid Arthritis: Yes - GASTROINTESTINAL Hx Gastrointestinal Disorders: Yes Hx Diverticulitis: Yes - GENITOURINARY/GYNECOLOGICAL Hx Genitourinary Disorders: Yes Hx Prostate Problems: Yes (BPH) - PSYCHIATRIC Hx Psychophysiologic Disorder: Yes Hx Anxiety: Yes Hx Depression: Yes Hx Substance Use: No - SURGICAL HISTORY Hx Surgeries: Yes Hx Coronary Stent: Yes (x 2) - ANESTHESIA Hx Anesthesia: Yes Hx Anesthesia Reactions: No Hx Malignant Hyperthermia: No Meds Allergies/Adverse Reactions: Allergies Allergy/AdvReac Type Severity Reaction Status Date / Time No Known Allergies Allergy Verified 04/17/18 04:14 Physical Exam - Constitutional Appears: No Acute Distress - Head Exam Head Exam: NORMAL INSPECTION - Eye Exam Eye Exam: PERRL - ENT Exam ENT Exam: Normal Exam - Neck Exam Neck exam: Positive for: Normal Inspection - Respiratory Exam Respiratory Exam: Decreased Breath Sounds (b/l), Rhonchi (scattered) - Cardiovascular Exam Cardiovascular Exam: REGULAR RHYTHM - GI/Abdominal Exam GI & Abdominal Exam: Normal Bowel Sounds, Soft - Extremities Exam Extremities exam: Positive for: normal inspection - Back Exam Back exam: NORMAL INSPECTION - Neurological Exam Neurological exam: Alert, Oriented x3 Additional comments: No motor/sensory deficit. - Psychiatric Exam Psychiatric exam: Normal Mood - Skin Skin Exam: Warm Results - Vital Signs Recent Vital Signs: Last Vital Signs Temp 98.2 F 06/19/18 16:14 Pulse 91 H 06/19/18 16:14 Resp 18 06/19/18 16:14 BP 110/67 06/19/18 16:14 Pulse Ox 97 06/19/18 16:14 reviewed J.P. - Labs Result Diagrams: 06/19/18 04:35 06/19/18 04:35 Labs: Laboratory Results - last 24 hr 06/19/18 06/19/18 04:35 04:35 WBC 11.0 H RBC 3.39 L Hgb 9.7 L Hct 29.7 L MCV 87.7 MCH 28.7 MCHC 32.8 L RDW 16.6 H Plt Count 164 MPV 10.6 Neut % (Auto) 95.1 H Lymph % (Auto) 1.9 L [place] % (Auto) 3.0 Eos % (Auto) 0.0 Baso % (Auto) 0.0 Neut # (Auto) 10.5 H Lymph # (Auto) 0.2 L [place] # (Auto) 0.3 Eos # (Auto) 0.0 Baso # (Auto) 0.0 Total Counted Cancelled Neutrophils % (Manual) Cancelled Band Neutrophils % Cancelled Lymphocytes % (Manual) Cancelled Reactive Lymphs % Cancelled Monocytes % (Manual) Cancelled Eosinophils % (Manual) Cancelled Basophils % (Manual) Cancelled Metamyelocytes % Cancelled Myelocytes % Cancelled Promyelocytes % Cancelled Blast Cells % Cancelled Plasma Cell % (Manual) Cancelled Nucleated RBC % Cancelled Hypersegmented Polys Cancelled Smudge Cells Cancelled Toxic Granulation Cancelled Dohle Bodies Cancelled Paul Rods Cancelled Platelet Estimate Cancelled Plt Clumps, EDTA Cancelled Large Platelets Cancelled Giant Platelets Cancelled RBC Morphology Cancelled Polychromasia Cancelled Hypochromasia (manual) Cancelled Poikilocytosis (manual Cancelled Basophilic Stippling Cancelled Anisocytosis (manual) Cancelled Microcytosis (manual) Cancelled Macrocytosis (manual) Cancelled Spherocytes Cancelled Sickle Cells Cancelled Target Cells Cancelled Tear Drop Cells Cancelled Ovalocytes Cancelled Stomatocytes Cancelled Helmet Cells Cancelled [place] Bodies Cancelled Arlette Cells Cancelled Acanthocytes (Spur) Cancelled Rouleaux Cancelled Schistocytes Cancelled Sodium 137 Potassium 4.4 Chloride 103 Carbon Dioxide 27 Anion Gap 11 BUN 26 H Creatinine 0.8 Est GFR ( Amer) > 60 Est GFR (Non-Af Amer) > 60 Random Glucose 119 H Calcium 8.4 Phosphorus 3.0 Magnesium 2.0 Total Bilirubin 0.2 AST 23 ALT 26 Alkaline Phosphatase 42 Total Protein 5.7 L Albumin 3.2 L Globulin 2.5 Albumin/Globulin Ratio 1.3 reviewed J.P. - EKG Data EKG comments: reviewed J.P. - Imaging and Cardiology Chest x-ray Status: Report reviewed by me (J.P.) Assessment & Plan (1) COPD exacerbation Status: Acute Priority: High (2) CAD (coronary artery disease) Status: Chronic Priority: High (3) ILD (interstitial lung disease) Status: Chronic Priority: High (4) RA (rheumatoid arthritis) Status: Chronic Priority: Medium (5) Hypercholesteremia Status: Acute Priority: Medium (6) Depression Status: Chronic Priority: Medium - Assessment and Plan (Free Text) Plan: F/U Blood C-S, continue O2 NC 2 L/M, Duoneb, Solu-Medrol, Ceftriaxone, Zithromax and rest of tx. - Date & Time Date: 06/19/18 Time: 12:30
[2018-06-20] MEDS: LEFLUNOMIDE 10 MG PO SCH (09:23)
[2018-06-20] MEDS: Pantoprazole 40 mg EC Tab PO SCH (09:24)
[2018-06-20] MEDS: MethylPREDNISolone 40 mg Vial IVP SCH ×3 (09:24→16:26)
[2018-06-20] MEDS: Albuterol-Ipratrop 3 mg / 0.5 (3 ml) UD INH PRN ×4 (12:04→23:14)
--- NOTE | 2018-06-20 17:31 | CP.PCM.PN ---
Subjective - Date & Time of Evaluation Date of Evaluation: 06/20/18 Time of Evaluation: 15:10 - Subjective Subjective: F/U COPD Exacerbation. Cough and chest congestion improved. Objective - Vital Signs/Intake and Output Vital Signs (last 24 hours): Temp Pulse Resp BP Pulse Ox 97.4 F L 85 18 107/69 99 06/20/18 15:44 06/20/18 15:44 06/20/18 15:44 06/20/18 15:44 06/20/18 15:44 - Medications Medications: Current Medications Albuterol/Ipratropium (Duoneb 3 Mg/0.5 Mg (3 Ml) Ud) 3 ml INH TID PRN PRN Reason: Shortness of Breath Last Admin: 06/20/18 15:05 Dose: 3 ml Amitriptyline HCl (Elavil) 10 mg PO HS [facility] Last Admin: 06/19/18 21:54 Dose: 10 mg Atorvastatin Calcium (Lipitor) 40 mg PO HS [facility] Last Admin: 06/19/18 21:54 Dose: 40 mg Folic Acid (Folic Acid) 1 mg PO DAILY [facility] Last Admin: 06/20/18 09:24 Dose: 1 mg Home Med (Leflunomide [Arava]) 10 mg PO DAILY [facility] Last Admin: 06/20/18 09:23 Dose: 10 mg Home Med (Tofacitinib Citrate [Xeljanz Xr]) 11 mg PO DAILY [facility] Last Admin: 06/20/18 09:23 Dose: 11 mg Home Med (Patient's Own Medication) 1 unit PO BID [facility] Last Admin: 06/20/18 16:25 Dose: 1 unit Hydroxychloroquine Sulfate (Plaquenil) 200 mg PO Q12 [facility]; Protocol Last Admin: 06/20/18 09:24 Dose: 200 mg Ceftriaxone Sodium 1 gm/ (Sodium Chloride) 100 mls @ 100 mls/hr IVPB [facility]; Protocol Last Admin: 06/19/18 21:55 Dose: 100 mls/hr Azithromycin 500 mg/ Sodium (Chloride) 250 mls @ 250 mls/hr IVPB [facility]; Protocol Last Admin: 06/19/18 21:54 Dose: 250 mls/hr Lisinopril (Zestril) 10 mg PO DAILY [facility] Last Admin: 06/20/18 09:24 Dose: 10 mg Methylprednisolone (Solu-Medrol) 40 mg IVP Q8 [facility] Last Admin: 06/20/18 16:26 Dose: 40 mg Pantoprazole Sodium (Protonix Ec Tab) 40 mg PO DAILY [facility] Last Admin: 06/20/18 09:24 Dose: 40 mg Tamsulosin HCl (Flomax) 0.4 mg PO HS [facility] Last Admin: 06/19/18 21:54 Dose: 0.4 mg - Labs Labs: 06/19/18 04:35 06/19/18 04:35 - Constitutional Appears: No Acute Distress - Head Exam Head Exam: NORMAL INSPECTION - Eye Exam Eye Exam: PERRL - ENT Exam ENT Exam: Normal Exam - Neck Exam Neck Exam: Normal Inspection - Respiratory Exam Respiratory Exam: Decreased Breath Sounds (b/l), Rhonchi (at bases) - Cardiovascular Exam Cardiovascular Exam: REGULAR RHYTHM - GI/Abdominal Exam GI & Abdominal Exam: Soft, Normal Bowel Sounds - Extremities Exam Extremities Exam: Normal Inspection - Back Exam Back Exam: NORMAL INSPECTION - Neurological Exam Neurological Exam: Alert, Oriented x3. absent: Motor Sensory Deficit - Psychiatric Exam Psychiatric exam: Normal Mood - Skin Skin Exam: Warm Assessment and Plan (1) COPD exacerbation Status: Acute (2) CAD (coronary artery disease) Status: Chronic (3) ILD (interstitial lung disease) Status: Chronic (4) RA (rheumatoid arthritis) Status: Chronic (5) Hypercholesteremia Status: Acute (6) Depression Status: Chronic - Assessment and Plan (Free Text) Plan: Continue Zithromax, Ceftriaxone, Duoneb, taper Solu-Medrol and rest of tx.
[2018-06-20] MEDS: Azithromycin 500 MG in Sodium Chloride 0.9% 250 ML IVPB SCH (22:10)
[2018-06-21] MEDS: MethylPREDNISolone 40 mg Vial IVP SCH ×3 (00:31→18:41)
[2018-06-21] MEDS: Albuterol-Ipratrop 3 mg / 0.5 (3 ml) UD INH PRN ×3 (07:42→19:45)
[2018-06-21] MEDS: Pantoprazole 40 mg EC Tab PO SCH (09:54)
[2018-06-21] MEDS: LEFLUNOMIDE 10 MG PO SCH (09:55)
--- NOTE | 2018-06-21 14:18 | CP.PCM.PN ---
Subjective - Date & Time of Evaluation Date of Evaluation: 06/21/18 Time of Evaluation: 11:20 - Subjective Subjective: F/U COPD Exacerbation Occasional dry cough in the morning, less chest congestion. Objective - Vital Signs/Intake and Output Vital Signs (last 24 hours): Temp Pulse Resp BP Pulse Ox 97.6 F 69 18 118/73 97 06/21/18 11:59 06/21/18 11:59 06/21/18 11:59 06/21/18 11:59 06/21/18 11:59 - Medications Medications: Current Medications Albuterol/Ipratropium (Duoneb 3 Mg/0.5 Mg (3 Ml) Ud) 3 ml INH TID PRN PRN Reason: Shortness of Breath Last Admin: 06/21/18 07:42 Dose: 3 ml Amitriptyline HCl (Elavil) [address] [facility] Last Admin: 06/20/18 22:09 Dose: 10 mg Atorvastatin Calcium (Lipitor) [address] [facility] Last Admin: 06/20/18 22:09 Dose: 40 mg Folic Acid (Folic Acid) 1 mg PO DAILY [facility] Last Admin: 06/21/18 09:54 Dose: 1 mg Home Med (Leflunomide [Arava]) 10 mg PO DAILY [facility] Last Admin: 06/21/18 09:55 Dose: 10 mg Home Med (Tofacitinib Citrate [Xeljanz Xr]) 11 mg PO DAILY [facility] Last Admin: 06/21/18 09:55 Dose: 11 mg Home Med (Patient's Own Medication) 1 unit PO BID [facility] Last Admin: 06/21/18 09:55 Dose: 1 unit Hydroxychloroquine Sulfate (Plaquenil) 200 mg PO Q12 [facility]; Protocol Last Admin: 06/21/18 09:54 Dose: 200 mg Ceftriaxone Sodium 1 gm/ (Sodium Chloride) 100 mls @ 100 mls/hr IVPB [facility]; Protocol Last Admin: 06/20/18 22:10 Dose: 100 mls/hr Azithromycin 500 mg/ Sodium (Chloride) 250 mls @ 250 mls/hr IVPB [facility]; Protocol Last Admin: 06/20/18 22:10 Dose: 250 mls/hr Lisinopril (Zestril) 10 mg PO DAILY [facility] Last Admin: 06/21/18 09:54 Dose: 10 mg Methylprednisolone (Solu-Medrol) 30 mg IVP Q8 [facility] Last Admin: 06/21/18 09:57 Dose: 30 mg Pantoprazole Sodium (Protonix Ec Tab) 40 mg PO DAILY [facility] Last Admin: 06/21/18 09:54 Dose: 40 mg Tamsulosin HCl (Flomax) 0.4 mg PO HS [facility] Last Admin: 06/20/18 22:09 Dose: 0.4 mg - Labs Labs: 06/19/18 04:35 06/19/18 04:35 - Constitutional Appears: No Acute Distress - Head Exam Head Exam: NORMAL INSPECTION - Eye Exam Eye Exam: PERRL - ENT Exam ENT Exam: Normal Exam - Neck Exam Neck Exam: Normal Inspection - Respiratory Exam Respiratory Exam: Decreased Breath Sounds (b/l), Rhonchi (at bases) - Cardiovascular Exam Cardiovascular Exam: REGULAR RHYTHM - GI/Abdominal Exam GI & Abdominal Exam: Soft, Normal Bowel Sounds - Extremities Exam Extremities Exam: Normal Inspection - Back Exam Back Exam: NORMAL INSPECTION - Neurological Exam Neurological Exam: Alert, Oriented x3. absent: Motor Sensory Deficit - Psychiatric Exam Psychiatric exam: Normal Mood - Skin Skin Exam: Warm Assessment and Plan (1) COPD exacerbation Status: Acute (2) CAD (coronary artery disease) Status: Chronic (3) ILD (interstitial lung disease) Status: Chronic (4) RA (rheumatoid arthritis) Status: Chronic (5) Hypercholesteremia Status: Acute (6) Depression Status: Chronic - Assessment and Plan (Free Text) Plan: Continue Ceftriaxone, Zithromax, Solu-Medrol, Duoneb and rest of Tx.
[2018-06-21] MEDS: Azithromycin 500 MG in Sodium Chloride 0.9% 250 ML IVPB SCH (21:41)
[2018-06-22 00:17] VITALS: RESP 20
[2018-06-22] MEDS: MethylPREDNISolone 40 mg Vial IVP SCH ×2 (00:40→09:15)
[2018-06-22 08:30] VITALS: BP 127/78; PULSE 63; TEMP 97.8; O2SAT 99
[2018-06-22] MEDS: LEFLUNOMIDE 10 MG PO SCH (09:13)
[2018-06-22] MEDS: Pantoprazole 40 mg EC Tab PO SCH (09:15)
== END 2018-06-22 11:36 | disposition home or self-care (01) | DRG 191 ==
LOC: SUPCPDRO 14:09 → H.ER 14:09 → H.ERHOLD 16:39 → H.TEL 22:15 → OBSVTOIN 06-21 14:54
PROVIDERS: ADMIT Internal Medicine Pulmonary Disease; ATTEND Internal Medicine Pulmonary Disease
PROC: 3E0F7GC Introduction of Other Therapeutic Substance into Respiratory Tract, Via Natural or Artificial Opening (ICD-10-PCS; principal; 2018-06-19)
DX: J43.9 Emphysema, unspecified (principal); J84.9 Interstitial pulmonary disease, unspecified; M06.9 Rheumatoid arthritis, unspecified; E78.00 Pure hypercholesterolemia, unspecified; F32.9 Major depressive disorder, single episode, unspecified; G47.30 Sleep apnea, unspecified; I10 Essential (primary) hypertension; I25.10 Atherosclerotic heart disease of native coronary artery without angina pectoris; M81.0 Age-related osteoporosis without current pathological fracture; N40.0 Benign prostatic hyperplasia without lower urinary tract symptoms; Z79.02 Long term (current) use of antithrombotics/antiplatelets; Z82.49 Family history of ischemic heart disease and other diseases of the circulatory system; Z87.01 Personal history of pneumonia (recurrent); Z87.891 Personal history of nicotine dependence; Z95.5 Presence of coronary angioplasty implant and graft; D64.9 Anemia, unspecified; F41.9 Anxiety disorder, unspecified; H26.9 Unspecified cataract; M19.90 Unspecified osteoarthritis, unspecified site; Z79.899 Other long term (current) drug therapy

== ENCOUNTER 2018-06-24 14:28 | Observation (INO) | payer MEDICARE, MEDICAID ==
[2018-06-24 14:28] VITALS: BMI 31.3
[2018-06-24] MEDS ORDERED: Albuterol-Ipratrop 3 mg / 0.5 (3 ml) UD INH STA (15:29)
--- NOTE | 2018-06-24 15:37 | ED PDOC ---
HPI: SOB/CHF/COPD Time Seen by Provider: 06/24/18 15:18 Chief Complaint (Nursing): Shortness Of Breath Chief Complaint (Provider): Shortness of breath History Per: Patient History/Exam Limitations: no limitations Onset/Duration Of Symptoms: Days Current Symptoms Are (Timing): Still Present Current Respiratory Medications: Albuterol Associated Symptoms: Chest Pain (chest tightness), Productive Cough. denies: Fever, Chills, Bloody Cough, Leg/Calf Pain, Ankle/Leg Swelling, Dizziness Recently: Hospitalized (discharged 4 days ago) Additional History Per: Patient Additional Complaint(s): 72yo male, with history of COPD, hypertension, asthma, CAD, comes to ER reporting shortness of breath and COPD exacerbation. Patient was recently admitted to this facility due to COPD exacerbation and was discharged 4 days ago. Patient states since his discharge, he was feeling persistently short of breath, but today was the worst, prompting ER visit. He reports associated chest tightness, a productive cough with foul smelling phlegm, and has been using albuterol along with other home medication with no relief. He denies any associated fever, rhinorrhea, leg swelling, hemoptysis, or other complaints. Patient called his PMD Dr. Son regarding his symptoms, who advised patient to come to ER for further evaluation. Past Medical History Reviewed: Historical Data, Nursing Documentation, Vital Signs Vital Signs: Last Vital Signs Temp 98 F 06/24/18 14:36 Pulse 95 H 06/24/18 14:36 Resp 24 06/24/18 14:36 BP 137/90 06/24/18 14:36 Pulse Ox 94 L 06/24/18 14:36 Primary Care Provider: FAMILY PROVIDER,NO - Medical History PMH: Anemia, Anxiety, Arthritis, Asthma, Benign Prostatic Hyperplasia, Bronchitis, CAD, COPD, Depression, Diverticulitis, Emphysema, HTN, Hypercholesterolemia, Osteoporosis, Pneumonia, Rheumatoid Arthritis, Sleep Apnea Denies: HIV, Chronic Kidney Disease - Surgical History Surgical History: Coronary Stent (x 2) - Family History Family History: States: [place] (father and brother), Hypertension - Home Medications Home Medications: Ambulatory Orders Medication Instructions Recorded Atorvastatin [Lipitor] 40 mg PO HS 04/21/16 Hydroxychloroquine Sulfate 200 mg PO Q12 11/28/16 [Plaquenil] Albuterol/Ipratropium [Duoneb 3 3 ml INH Q8 PRN 10/06/17 mg/0.5 mg (3 ml) UD] Folic Acid 1 mg PO DAILY 12/30/17 Leflunomide [Arava] 10 mg PO DAILY 12/30/17 Ticagrelor [Brilinta] 60 mg PO BID 12/30/17 Tamsulosin [Flomax] 0.4 mg PO HS cap 01/02/18 Lisinopril [Zestril] 10 mg PO DAILY 05/26/18 Tofacitinib Citrate [Xeljanz Xr] 11 mg PO DAILY 05/26/18 Azithromycin [Zithromax] 500 mg PO DAILY #5 tab 06/22/18 Albuterol Sulfate [Proair Hfa] 2 puff IH Q6 PRN 06/24/18 Aspirin [Ecotrin] 81 mg PO DAILY 06/24/18 Budesonide/Formoterol Fumarate 2 puff IH Q12 06/24/18 [Symbicort 160-4.5 Mcg Inhaler] Calcium Carbonate/Vitamin D3 1 tab PO BID 06/24/18 [Calcium 500-Vit D3 400 Tablet] Docusate [Colace] 100 mg PO Q12 PRN 06/24/18 Ibuprofen [Motrin Tab] 800 mg PO Q6 PRN 06/24/18 Omeprazole 40 mg PO DAILY 06/24/18 Oxycodone HCl/Acetaminophen 1 tab PO Q6 PRN 06/24/18 [Endocet 10-325 mg Tablet] Promethazine HCl/Codeine 5 ml PO Q6 PRN 06/24/18 [Promethazine-Codeine Syrup] Zolpidem [Ambien] 10 mg PO HS 06/24/18 predniSONE [predniSONE Tab] 10 mg PO ASDIR 06/24/18 - Allergies Allergies/Adverse Reactions: Allergies Allergy/AdvReac Type Severity Reaction Status Date / Time No Known Allergies Allergy Verified 06/24/18 14:29 Review of Systems ROS Statement: Except As Marked, All Systems Reviewed And Found Negative (as per HPI) Constitutional: Negative for: Fever Cardiovascular: Positive for: Other (chest tightness) Respiratory: Positive for: Cough, Shortness of Breath, Sputum (foul smelling). Negative for: Hemoptysis Physical Exam - Reviewed Nursing Documentation Reviewed: Yes Vital Signs Reviewed: Yes - Physical Exam Appears: Positive for: Non-toxic, Uncomfortable Head Exam: Positive for: ATRAUMATIC, NORMAL INSPECTION, NORMOCEPHALIC Skin: Positive for: Normal Color Eye Exam: Positive for: Normal appearance, EOMI, PERRL Neck: Positive for: Supple Cardiovascular/Chest: Positive for: Regular Rate, Rhythm. Negative for: Murmur Respiratory: Positive for: Rhonchi, Wheezing (expiratory), Respiratory Distress (mild). Negative for: Accessory Muscle Use Gastrointestinal/Abdominal: Positive for: Normal Exam, Soft Back: Positive for: Normal Inspection Extremity: Positive for: Normal ROM. Negative for: Pedal Edema Neurological/Psych: Positive for: Awake, Alert, Normal Tone - Laboratory Results Result Diagrams: 06/24/18 18:12 06/24/18 16:02 - ECG O2 Sat by Pulse Oximetry: 94 (RA) Medical Decision Making Medical Decision Making: Impression: COPD exacerbation Differential: Pneumonia, bronchitis, CHF, pleural effusion Plan: -- Labs -- EKG -- CXR -- Duoneb 9ml INH -- Solumedrol 125mg IVP Accession No. : [id number] Patient Name / ID : ANAM ESPINAL / [id number] Exam Date : 06/24/2018 15:41:47 ( Approved ) Study Comment : Sex / Age : M / 72Y Creator : Sadie De Jesus MD Dictator : Sadie De Jesus MD Hospice Aide : Jtac : Sadie De Jesus MD Approver2 : Report Date : 06/24/2018 16:07:56 My Comment : Date of service: 06/24/2018 HISTORY: Shortness of breath COMPARISON: 06/18/2018. TECHNIQUE: Chest PA and lateral FINDINGS: LINES AND TUBES: None. LUNG AND PLEURA: The lungs are well inflated and clear. There is diffuse interstitial thickening in the lungs. There is atelectasis/scarring in the lower lobes. No pleural effusion or pneumothorax. HEART AND MEDIASTINUM: The heart is not enlarged. No aortic atherosclerotic calcifications present. The hilar and mediastinal contours are within normal limits. SKELETAL STRUCTURES: The bony structures are within normal limits for the patient's age. VISUALIZED UPPER ABDOMEN: Normal. OTHER FINDINGS: None. IMPRESSION: No active pulmonary disease. Stable diffuse interstitial fibrosis. [address] Son, patient to be admitted under his service due to COPD exacerbation. ------ Scribe Attestation: Documented by Debi Davey acting as a scribe for Velma Yoon MD. Provider Scribe Attestation: All medical record entries made by the Scribe were at my direction and personally dictated by me. I have reviewed the chart and agree that the record accurately reflects my personal performance of the history, physical exam, medical decision making, and the department course for this patient. I have also personally directed, reviewed, and agree with the discharge instructions and disposition. Disposition - Clinical Impression Clinical Impression: COPD exacerbation Discussed With : Kareem Son Doctor Will See Patient In The: Hospital - Disposition Disposition Time: 16:30 Condition: FAIR - Pt Status Changed To: Hospital Disposition Of: Observation - POA Present On Arrival: None
[2018-06-24] MEDS ORDERED: Albuterol-Ipratrop 3 mg / 0.5 (3 ml) UD ONE ×2 (15:43→16:11)
--- NOTE | 2018-06-24 16:01 | CARD ---
APPROVED REPORT Date of service: 06/24/2018 EKG Measurement Heart [id number] <Conclusion> Normal sinus rhythm with sinus arrhythmia Possible inferior infarct, age undetermined Abnormal Electrocardiogram
--- NOTE | 2018-06-24 16:11 | RAD ---
Date of service: 06/24/2018 HISTORY: Shortness of breath COMPARISON: 06/18/2018. TECHNIQUE: Chest PA and lateral FINDINGS: LINES AND TUBES: None. LUNG AND PLEURA: The lungs are well inflated and clear. There is diffuse interstitial thickening in the lungs. There is atelectasis/scarring in the lower lobes. No pleural effusion or pneumothorax. HEART AND MEDIASTINUM: The heart is not enlarged. No aortic atherosclerotic calcifications present. The hilar and mediastinal contours are within normal limits. SKELETAL STRUCTURES: The bony structures are within normal limits for the patient's age. VISUALIZED UPPER ABDOMEN: Normal. OTHER FINDINGS: None. IMPRESSION: No active pulmonary disease. Stable diffuse interstitial fibrosis.
[2018-06-24 16:12] LABS: INR 0.9; PROTHROMBIN TIME 10.2 Seconds (9.8-13.1)
[2018-06-24 16:14] LABS: ABG ALLEN TEST YES; ARTERIAL BLOOD GAS HCO3 25.7 mmol/L (21-28); ARTERIAL BLOOD GAS O2 SAT 99.6 % (95-98); ARTERIAL BLOOD GAS PCO2 33 mm/Hg (35-45); ARTERIAL BLOOD GAS PH 7.47 (7.35-7.45); ARTERIAL BLOOD GAS PO2 176 mm/Hg (80-100)
[2018-06-24 16:29] LABS: B-TYPE NATRIURETIC PEPTIDE 183 pg/ml (0-900)
[2018-06-24 16:55] LABS: ALB/GLOB RATIO 1.3 (1.0-2.1); ALBUMIN 3.2 g/dL (3.5-5.0); ALT/SGPT 59 U/L (21-72); AST/SGOT 47 U/L (17-59); BLOOD UREA NITROGEN 36 mg/dl (9-20); CALCIUM 8.3 mg/dL (8.4-10.2); GFR NON-AFRICAN AMERICAN > 60
[2018-06-24 18:22] LABS: LYMPH # 0.3 K/uL (1.0-4.3); LYMPH % 2.6 % (20.0-40.0); MEAN CELL VOLUME 89.1 fl (80.0-94.0); MEAN CORPUSCULAR HEMOGLOBIN 28.6 pg (27.0-31.0); MEAN CORPUSCULAR HGB CONC 32.1 g/dL (33.0-37.0); MONO # 0.8 K/uL (0.0-0.8); MONO % 6.7 % (0.0-10.0); NEUT # 10.9 K/uL (1.8-7.0); NEUT % 90.7 % (50.0-75.0); NRBC % 0.1 % (0.0-0.0); PLATELET COUNT 277 K/uL (130-400); RBC 3.83 Mil/uL (4.40-5.90); RED CELL DISTRIBUTION WIDTH 17.7 % (11.5-14.5); WHITE BLOOD COUNT 12.1 K/uL (4.8-10.8)
[2018-06-24 19:11] LABS: INR 0.9; PROTHROMBIN TIME 10.3 Seconds (9.8-13.1)
[2018-06-24 19:14] LABS: PARTIAL THROMBOPLASTIN TIME 25.6 Seconds (25.6-37.1)
[2018-06-24 20:32] LABS: ANISOCYTOSIS SLIGHT; BANDS 2 % (0-2); LYMPHOCYTE 7 % (20-50); MONOCYTE 5 % (0-10); NEUTROPHIL 86 % (42-75); PLATELET ESTIMATE NORMAL (NORMAL); POIKILOCYTOSIS SLIGHT; TOTAL CELLS COUNTED 100
[2018-06-24 20:33] LABS: BURR CELLS MODERATE; OVALOCYTES SLIGHT; POLYCHROMIC SLIGHT
[2018-06-24] MEDS: Albuterol-Ipratrop 3 mg / 0.5 (3 ml) UD INH SCH ×2 (22:43→23:23)
[2018-06-24] MEDS ORDERED: Patient's Own Med (Oxycodone Hcl/Acetaminophen [Endocet 10-325 Mg Tablet] 1 TAB) PO PRN (23:10)
[2018-06-24] MEDS ORDERED: Patient's Own Med (Albuterol Sulfate 2 PUFF) IH PRN (23:10)
[2018-06-24] MEDS ORDERED: Promethazine/Cod 6.25mg-10mg/5ml Syr UD PO PRN (23:10)
[2018-06-25] MEDS ORDERED: Albuterol-Ipratrop 3 mg / 0.5 (3 ml) UD INH SCH
[2018-06-25] MEDS: MethylPREDNISolone 40 mg Vial IVP SCH ×4 (00:10→17:05)
[2018-06-25] MEDS ORDERED: Albuterol HFA 90 mcg/actuation (8 g) INH PRN (01:42)
[2018-06-25] MEDS: Albuterol-Ipratrop 3 mg / 0.5 (3 ml) UD INH SCH ×6 (04:34→23:08)
[2018-06-25] MEDS: FLUTICASONE PROPION/SALMETEROL 113-14 IH SCH ×2 (08:52→21:43)
[2018-06-25] MEDS: Calcium-Vit D 500 mg-200 Units Tab UD PO SCH (08:53)
[2018-06-25] MEDS: Pantoprazole 40 mg EC Tab PO SCH (08:54)
[2018-06-25] MEDS ORDERED: LEFLUNOMIDE 10 MG PO SCH (09:00)
[2018-06-25] MEDS ORDERED: CALCIUM CARBONATE PO SCH (09:00)
[2018-06-25] MEDS ORDERED: VITAMIN D3 PO SCH (09:00)
[2018-06-25] MEDS ORDERED: Patient's Own Med (Budesonide/Formoterol Fumarate [Symbicort 160-4.5 Mcg Inhaler] 2 PUFF) IH SCH (09:00)
--- NOTE | 2018-06-25 14:58 | CP.PCM.HP ---
History of Present Illness - History of Present Illness History of Present Illness: CC: SOB. 72 y/o M, PMHx includes: COPD, Emphysema, ILD, CAD with cardiac stent, R/A. Pt walked in ER [facility] on 06/24/18 to be evaluated for SOB on day [employer], increased to severe on DOA, associated to intermittent cough with yellowish phlegms, wheezing and chest congestion, Pt using Albuterol at home with no relief. Pt was admitted in [facility] from 06/18/18 to 06/22/18 due to COPD Exacerbation, also with MHx of CT, CAD-Stent, 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 On 06/22/18, Pt was discharged home in improved and stable condition with no SOB, no A/D to f/u with PMD in a week. After 2 days of being discharged, Pt stated that he left his apartment and exposed to cold windy weather for few hours, when he returned, he started to have marked SOB, chest congestion and great difficulty climbing the stairs. Subsequently, Pt returned to the hospital on 06/24/18 for further evaluation and Tx. Worsening symptom: GREEN, Dyspnea at rest, chest tightness with coughing. Aggravated factor: ADL's, walking/exercise. Pt deied: Fever, chills, n/v/d, abdominal pain, urinary symptoms, CP, palpitat ions, syncope, sick contact. CXR: No active pulmonary disease. EKG: Normal sinus rhythm with sinus arrhythmia, possible inferior infarct, age undetermined. Present on Admission - Present on Admission Any Indicators Present on Admission: No Review of Systems - Constitutional Constitutional: Other (negative) - EENT Eyes: Requires Corrective Lenses Ears: Other (negative) Nose/Mouth/Throat: Other (negative) - Cardiovascular Cardiovascular: Dyspnea (at rest) - Respiratory Respiratory: Cough, Dyspnea, Dyspnea on Exertion, Wheezing, Change in Mucous Color, Pain with Coughing - Gastrointestinal Gastrointestinal: Other (negative) - Genitourinary Genitourinary: Other (negative) - Musculoskeletal Musculoskeletal: Arthralgias - Integumentary Integumentary: Other (negative) - Neurological Neurological: Other (negative) - Psychiatric Psychiatric: Other (negative) - Endocrine Endocrine: Other (negative) - Hematologic/Lymphatic Hematologic: Other (negative) Past Patient History - Infectious Disease Hx of Infectious Diseases: None - Past Medical History & Family History Past Medical History?: Yes Pertinent Family History: Father and Brother: HTN, [place] - Past Social History Smoking Status: Former Smoker Alcohol: None Drugs: Denies Home Situation {Lives}: Alone - CARDIAC Hx Cardiac Disorders: Yes Hx Hypercholesterolemia: Yes Hx Hypertension: Yes - PULMONARY Hx Respiratory Disorders: Yes Hx Chronic Obstructive Pulmonary Disease (COPD): Yes Hx Emphysema: Yes Hx Pneumonia: Yes - NEUROLOGICAL Hx Neurological Disorder: No - HEENT Hx HEENT Problems: Yes (cataracts) - RENAL Hx Chronic Kidney Disease: No - ENDOCRINE/METABOLIC Hx Endocrine Disorders: No Hx Diabetes Mellitus Type 2: No - HEMATOLOGICAL/ONCOLOGICAL Hx Blood Disorders: No Hx AIDS: No Hx Anemia: No Hx Hepatitis C: No Hx Human Immunodeficiency Virus (HIV): No - INTEGUMENTARY Hx Dermatological Problems: No - MUSCULOSKELETAL/RHEUMATOLOGICAL Hx Musculoskeletal Disorders: Yes Hx Back Pain: Yes (R/A) Hx Falls: Yes (states "years ago") Hx Osteoarthritis: Yes Hx Rheumatoid Arthritis: Yes - GASTROINTESTINAL Hx Gastrointestinal Disorders: Yes Hx Gastritis: Yes - GENITOURINARY/GYNECOLOGICAL Hx Genitourinary Disorders: Yes - PSYCHIATRIC Hx Psychophysiologic Disorder: No Hx Substance Use: No - SURGICAL HISTORY Hx Surgeries: Yes Hx Cataract Extraction: Yes (1 yr ago) Hx Coronary Stent: Yes (x [address] 2 yrs ago) 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[place]) - ANESTHESIA Hx Anesthesia: Yes Hx Anesthesia Reactions: No Hx Malignant Hyperthermia: No Meds Allergies/Adverse Reactions: Allergies Allergy/AdvReac Type Severity Reaction Status Date / Time No Known Allergies Allergy Verified 06/24/18 14:29 Physical Exam - Constitutional Appears: No Acute Distress - Head Exam Head Exam: NORMAL INSPECTION - Eye Exam Eye Exam: PERRL - ENT Exam ENT Exam: Normal Exam - Neck Exam Neck exam: Positive for: Normal Inspection - Respiratory Exam Respiratory Exam: Decreased Breath Sounds (b/l), Rhonchi (scattered) - Cardiovascular Exam Cardiovascular Exam: REGULAR RHYTHM - GI/Abdominal Exam GI & Abdominal Exam: Normal Bowel Sounds, Soft - Extremities Exam Extremities exam: Positive for: normal inspection - Back Exam Back exam: NORMAL INSPECTION - Neurological Exam Neurological exam: Alert, Oriented x3 Additional comments: No motor/sensory deficit. - Psychiatric Exam Psychiatric exam: Normal Mood - Skin Skin Exam: Warm Results - Vital Signs Recent Vital Signs: Last Vital Signs Temp 97.8 F 06/25/18 08:34 Pulse 66 06/25/18 08:57 Resp 18 06/25/18 08:34 BP 134/92 H 06/25/18 08:57 Pulse Ox 100 06/25/18 08:34 reviewed William - Labs Result Diagrams: 06/24/18 18:12 06/24/18 16:02 Labs: Laboratory Results - last 24 hr 06/24/18 06/24/18 06/24/18 15:55 16:02 16:02 WBC RBC Hgb Hct MCV MCH MCHC RDW Plt Count MPV Neut % (Auto) Lymph % (Auto) Bland % (Auto) Eos % (Auto) Baso % (Auto) Neut # (Auto) Lymph # (Auto) Bland # (Auto) Eos # (Auto) Baso # (Auto) Neutrophils % (Manual) Band Neutrophils % Lymphocytes % (Manual) Monocytes % (Manual) Platelet Estimate Polychromasia Poikilocytosis (manual Anisocytosis (manual) Ovalocytes Ilion Cells PT 10.2 INR 0.9 APTT TNP pCO2 33 L pO2 176 H HCO3 25.7 ABG pH 7.47 H ABG Total CO2 25.0 ABG O2 Saturation 99.6 H ABG Base Excess 0.9 Jeramie Test Yes ABG Potassium 4.5 A-a O2 Difference -18.0 Sodium 133.0 135 Chloride 106.0 106 Glucose 106 Lactate 1.4 FiO2 28.0 Potassium 5.0 Carbon Dioxide 23 Anion Gap 11 BUN 36 H Creatinine 0.8 Est GFR ( Amer) > 60 Est GFR (Non-Af Amer) > 60 Random Glucose 106 Calcium 8.3 L Total Bilirubin 0.6 AST 47 ALT 59 Alkaline Phosphatase 36 L Troponin I 0.0180 NT-Pro-B Natriuret Pep 183 Total Protein 5.7 L Albumin 3.2 L Globulin 2.4 Albumin/Globulin Ratio 1.3 Arterial Blood Potassium 4.5 06/24/18 06/24/18 18:12 18:12 WBC 12.1 H RBC 3.83 L Hgb 11.0 L Hct 34.1 L MCV 89.1 MCH 28.6 MCHC 32.1 L RDW 17.7 H Plt Count 277 D MPV 10.0 Neut % (Auto) 90.7 H Lymph % (Auto) 2.6 L Bland % (Auto) 6.7 Eos % (Auto) 0.0 Baso % (Auto) 0.0 Neut # (Auto) 10.9 H Lymph # (Auto) 0.3 L Bland # (Auto) 0.8 Eos # (Auto) 0.0 Baso # (Auto) 0.0 Neutrophils % (Manual) 86 H Band Neutrophils % 2 Lymphocytes % (Manual) 7 L Monocytes % (Manual) 5 Platelet Estimate Normal Polychromasia Slight Poikilocytosis (manual Slight Anisocytosis (manual) Slight Ovalocytes Slight Ilion Cells Moderate PT 10.3 INR 0.9 APTT 25.6 pCO2 pO2 HCO3 ABG pH ABG Total CO2 ABG O2 Saturation ABG Base Excess Jeramie Test ABG Potassium A-a O2 Difference Sodium Chloride Glucose Lactate FiO2 Potassium Carbon Dioxide Anion Gap BUN Creatinine Est GFR ( Amer) Est GFR (Non-Af Amer) Random Glucose Calcium Total Bilirubin AST ALT Alkaline Phosphatase Troponin I NT-Pro-B Natriuret Pep Total Protein Albumin Globulin Albumin/Globulin Ratio Arterial Blood Potassium reviewed J.P. - EKG Data EKG comments: reviewed J.P. - Imaging and Cardiology Chest x-ray Status: Report reviewed by me (JJose ManuelP.) Assessment & Plan (1) COPD exacerbation Status: Acute Priority: High (2) ILD (interstitial lung disease) Assessment and Plan: ILD, Bronchiectasis, [place]co[place]ing 2nd to R/A Status: Chronic Priority: High (3) CAD (coronary artery disease) Status: Chronic Priority: High (4) RA (rheumatoid arthritis) Status: Chronic Priority: Medium (5) Hypercholesteremia Status: Acute Priority: Medium (6) BPH (benign prostatic hyperplasia) Status: Chronic Priority: Medium (7) Depression Status: Acute Priority: Medium - Assessment and Plan (Free Text) Plan: F/U Blood C-S, ABG , Continue O2 NC, Zithromax, Solu-Medrol, Duoneb and rest of Tx. PT eval. - Date & Time Date: 06/25/18 Time: 14:00
[2018-06-26] MEDS: MethylPREDNISolone 40 mg Vial IVP SCH ×2 (00:24→08:42)
[2018-06-26] MEDS: Albuterol-Ipratrop 3 mg / 0.5 (3 ml) UD INH SCH ×3 (03:37→12:27)
[2018-06-26 05:58] LABS: ABG ALLEN TEST YES; ARTERIAL BLOOD GAS HCO3 27.3 mmol/L (21-28); ARTERIAL BLOOD GAS PCO2 32 mm/Hg (35-45); ARTERIAL BLOOD GAS PH 7.51 (7.35-7.45); ARTERIAL BLOOD GAS PO2 96 mm/Hg (80-100); ARTERIAL BLOOD GAS TCO2 26.5 mmol/L (22-28)
[2018-06-26 07:47] VITALS: BP 120/72; PULSE 93; RESP 19; TEMP 98; O2SAT 94
[2018-06-26] MEDS: FLUTICASONE PROPION/SALMETEROL 113-14 IH SCH (08:39)
[2018-06-26] MEDS: Calcium-Vit D 500 mg-200 Units Tab UD PO SCH (08:41)
[2018-06-26] MEDS: Pantoprazole 40 mg EC Tab PO SCH (08:41)
--- NOTE | 2018-06-26 12:20 | CP.PCM.DIS ---
Provider - Provider Date of Admission: 06/24/18 16:33 Attending physician: Kareem Son MD Consults: 06/25/18 09:00 Case Management Referral Routine Comment: Physician Instructions: Reason For Exam: needs continued home care [facility] at home Reason for Referral: Discharge Planning Social Work Referral Routine Comment: lives alone Physician Instructions: Reason For Exam: lives alone Diagnosis - Discharge Diagnosis (1) COPD exacerbation Status: Acute Priority: High (2) ILD (interstitial lung disease) Status: Chronic Priority: High (3) CAD (coronary artery disease) Status: Chronic Priority: High (4) RA (rheumatoid arthritis) Status: Chronic Priority: Medium (5) Hypercholesteremia Status: Acute Priority: Medium (6) BPH (benign prostatic hyperplasia) Status: Chronic Priority: Medium (7) Depression Status: Acute Priority: Medium Hospital Course - Lab Results Lab Results: Micro Results 06/24/18 15:38 Blood-Venous Blood Culture - Preliminary NO GROWTH AFTER 24 HOURS 06/24/18 15:58 Blood-Venous Blood Culture - Preliminary NO GROWTH AFTER 24 HOURS Most Recent Lab Values WBC 12.1 K/uL (4.8-10.8) H 06/24/18 18:12 RBC 3.83 Mil/uL (4.40-5.90) L 06/24/18 18:12 Hgb 11.0 g/dL (12.0-18.0) L 06/24/18 18:12 Hct 34.1 % (35.0-51.0) L 06/24/18 18:12 MCV 89.1 fl (80.0-94.0) 06/24/18 18:12 MCH 28.6 pg (27.0-31.0) 06/24/18 18:12 MCHC 32.1 g/dL (33.0-37.0) L 06/24/18 18:12 RDW 17.7 % (11.5-14.5) H 06/24/18 18:12 Plt Count 277 K/uL (130-400) D 06/24/18 18:12 MPV 10.0 fl (7.2-11.7) 06/24/18 18:12 Neut % (Auto) 90.7 % (50.0-75.0) H 06/24/18 18:12 Lymph % (Auto) 2.6 % (20.0-40.0) L 06/24/18 18:12 [place] % (Auto) 6.7 % (0.0-10.0) 06/24/18 18:12 Eos % (Auto) 0.0 % (0.0-4.0) 06/24/18 18:12 Baso % (Auto) 0.0 % (0.0-2.0) 06/24/18 18:12 Neut # (Auto) 10.9 K/uL (1.8-7.0) H 06/24/18 18:12 Lymph # (Auto) 0.3 K/uL (1.0-4.3) L 06/24/18 18:12 [place] # (Auto) 0.8 K/uL (0.0-0.8) 06/24/18 18:12 Eos # (Auto) 0.0 K/uL (0.0-0.7) 06/24/18 18:12 Baso # (Auto) 0.0 K/uL (0.0-0.2) 06/24/18 18:12 Neutrophils % (Manual) 86 % (42-75) H 06/24/18 18:12 Band Neutrophils % 2 % (0-2) 06/24/18 18:12 Lymphocytes % (Manual) 7 % (20-50) L 06/24/18 18:12 Monocytes % (Manual) 5 % (0-10) 06/24/18 18:12 Platelet Estimate Normal (NORMAL) 06/24/18 18:12 Polychromasia Slight 06/24/18 18:12 Poikilocytosis (manual Slight 06/24/18 18:12 Anisocytosis (manual) Slight 06/24/18 18:12 Ovalocytes Slight 06/24/18 18:12 [place] Cells Moderate 06/24/18 18:12 PT 10.3 Seconds (9.8-13.1) 06/24/18 18:12 INR 0.9 06/24/18 18:12 APTT 25.6 Seconds (25.6-37.1) 06/24/18 18:12 pCO2 32 mm/Hg (35-45) L 06/26/18 05:52 pO2 96 mm/Hg (80-100) 06/26/18 05:52 HCO3 27.3 mmol/L (21-28) 06/26/18 05:52 ABG pH 7.51 (7.35-7.45) H 06/26/18 05:52 ABG Total CO2 26.5 mmol/L (22-28) 06/26/18 05:52 ABG O2 Saturation 99.0 % (95-98) H 06/26/18 05:52 ABG Base Excess 3.0 mmol/L (-2.0-3.0) 06/26/18 05:52 [place] Test Yes 06/26/18 05:52 ABG Potassium 4.4 mmol/L (3.6-5.2) 06/26/18 05:52 A-a O2 Difference 14.0 mm/Hg 06/26/18 05:52 Sodium 131.0 mmol/L (132-148) L 06/26/18 05:52 Chloride 106.0 mmol/L (98-107) 06/26/18 05:52 Glucose 121 mg/dL (75-110) H 06/26/18 05:52 Lactate 1.9 mmol/L (0.7-2.1) 06/26/18 05:52 FiO2 21.0 % 06/26/18 05:52 Sodium 135 mmol/l (132-148) 06/24/18 16:02 Potassium 5.0 MMOL/L (3.6-5.0) 06/24/18 16:02 Chloride 106 mmol/L (98-107) 06/24/18 16:02 Carbon Dioxide 23 mmol/L (22-30) 06/24/18 16:02 Anion Gap 11 (10-20) 06/24/18 16:02 BUN 36 mg/dl (9-20) H 06/24/18 16:02 Creatinine 0.8 mg/dl (0.8-1.5) 06/24/18 16:02 Est GFR ( Amer) > 60 06/24/18 16:02 Est GFR (Non-Af Amer) > 60 06/24/18 16:02 Random Glucose 106 mg/dL (75-110) 06/24/18 16:02 Calcium 8.3 mg/dL (8.4-10.2) L 06/24/18 16:02 Total Bilirubin 0.6 mg/dl (0.2-1.3) 06/24/18 16:02 AST 47 U/L (17-59) 06/24/18 16:02 ALT 59 U/L (21-72) 06/24/18 16:02 Alkaline Phosphatase 36 U/L (38-126) L 06/24/18 16:02 Troponin I 0.0180 ng/mL (0.00-0.120) 06/24/18 16:02 NT-Pro-B Natriuret Pep 183 pg/ml (0-900) 06/24/18 16:02 Total Protein 5.7 G/DL (6.3-8.2) L 06/24/18 16:02 Albumin 3.2 g/dL (3.5-5.0) L 06/24/18 16:02 Globulin 2.4 gm/dL (2.2-3.9) 06/24/18 16:02 Albumin/Globulin Ratio 1.3 (1.0-2.1) 06/24/18 16:02 Arterial Blood Potassium 4.4 mmol/L (3.6-5.2) 06/26/18 05:52 Discharge Exam - Head Exam Head Exam: NORMAL INSPECTION Discharge Plan - Follow Up Plan Condition: FAIR Disposition: HOME/ ROUTINE Instructions: COPD Including Emphysema (DC), Inhalers, Exacerbation of COPD (DC) Referrals: Kareem Son MD [Family Provider] -
== END 2018-06-26 14:01 | disposition home or self-care (01) ==
LOC: H.ER 14:28 → H.ERHOLD 16:33 → H.MEDSURG1 20:36
PROVIDERS: ADMIT Internal Medicine Pulmonary Disease; ATTEND Internal Medicine Pulmonary Disease
DX: J43.9 Emphysema, unspecified (principal); J47.9 Bronchiectasis, uncomplicated; J84.9 Interstitial pulmonary disease, unspecified; M06.9 Rheumatoid arthritis, unspecified; G47.30 Sleep apnea, unspecified; M81.0 Age-related osteoporosis without current pathological fracture; N40.0 Benign prostatic hyperplasia without lower urinary tract symptoms; Z79.02 Long term (current) use of antithrombotics/antiplatelets; Z79.51 Long term (current) use of inhaled steroids; Z79.82 Long term (current) use of aspirin; Z82.49 Family history of ischemic heart disease and other diseases of the circulatory system; Z87.01 Personal history of pneumonia (recurrent); Z87.891 Personal history of nicotine dependence; Z90.81 Acquired absence of spleen; Z95.5 Presence of coronary angioplasty implant and graft; D64.9 Anemia, unspecified; F41.9 Anxiety disorder, unspecified; H26.9 Unspecified cataract; J45.901 Unspecified asthma with (acute) exacerbation; K29.70 Gastritis, unspecified, without bleeding; M19.90 Unspecified osteoarthritis, unspecified site; Z79.899 Other long term (current) drug therapy; R55 Syncope and collapse; E78.00 Pure hypercholesterolemia, unspecified; F32.9 Major depressive disorder, single episode, unspecified; I10 Essential (primary) hypertension; I25.10 Atherosclerotic heart disease of native coronary artery without angina pectoris
CPT/HCPCS: 71046; 80053; 82803; 83880; 84484; 85025; 85610; 85730; 87040; 93005; 94640; 96374; 99285; G0378; J2920; J2930

== ENCOUNTER 2018-07-01 08:34 | Inpatient (IN) | payer MEDICARE, MEDICAID ==
[2018-07-01 08:34] VITALS: BMI 31.3
[2018-07-01] MEDS ORDERED: Albuterol-Ipratrop 3 mg / 0.5 (3 ml) UD ONE ×3 (08:57→12:37)
[2018-07-01] MEDS ORDERED: Albuterol-Ipratrop 3 mg / 0.5 (3 ml) UD INH STA (09:31)
[2018-07-01] MEDS ORDERED: Albuterol-Ipratrop 3 mg / 0.5 (3 ml) UD IH STA ×2 (09:31→09:32)
[2018-07-01 09:54] LABS: BASO # 0.1 K/uL (0.0-0.2); BASO % 0.1 % (0.0-2.0); EOS % 0.1 % (0.0-4.0); LYMPH # 1.3 K/uL (1.0-4.3); LYMPH % 3.6 % (20.0-40.0); MEAN CELL VOLUME 90.4 fl (80.0-94.0); MEAN CORPUSCULAR HEMOGLOBIN 28.8 pg (27.0-31.0); MEAN CORPUSCULAR HGB CONC 31.9 g/dL (33.0-37.0); MEAN PLATELET VOLUME 9.9 fl (7.2-11.7); MONO # 0.8 K/uL (0.0-0.8); MONO % 2.1 % (0.0-10.0); NEUT # 33.9 K/uL (1.8-7.0); NEUT % 94.1 % (50.0-75.0); NRBC % 0.1 % (0.0-0.0); PLATELET COUNT 339 K/uL (130-400); RBC 4.15 Mil/uL (4.40-5.90); RED CELL DISTRIBUTION WIDTH 18.5 % (11.5-14.5)
--- NOTE | 2018-07-01 10:06 | ED PDOC ---
HPI: SOB/CHF/COPD Time Seen by Provider: 07/01/18 09:12 Chief Complaint (Nursing): Shortness Of Breath Chief Complaint (Provider): Shortness Of Breath History Per: Patient History/Exam Limitations: no limitations Onset/Duration Of Symptoms: Days (x5) Current Symptoms Are (Timing): Still Present Additional Complaint(s): 72 year old male with medical history of COPD, presents to the emergency department with a complaint of shortness of breath with exertion associated with productive cough of yellow sputum for the past 5 days. Patient states that he has seen his PCP 3 times in the last month for similar symptoms. Additionally, he has daily aspirin and inhaler use with minimal relief. Otherwise, no nasuea, vomiting, headaches, abdominal pain, leg pain or swelling. Patient uses a cane for gait assistance. Past Medical History Reviewed: Historical Data, Nursing Documentation, Vital Signs Vital Signs: Last Vital Signs Temp 98.6 F 07/01/18 08:49 Pulse 98 H 07/01/18 08:49 Resp 19 07/01/18 08:49 BP 165/81 H 07/01/18 08:49 Pulse Ox Primary Care Provider: Kareem Son - Medical History PMH: Anxiety, Arthritis, Asthma, Benign Prostatic Hyperplasia, Bronchitis, CAD, COPD, Depression, Diverticulitis, Emphysema, Gastritis, HTN, Hypercholesterolemia, Osteoporosis, Pneumonia, Rheumatoid Arthritis, Sleep Apnea Denies: Anemia, HIV, Chronic Kidney Disease - Surgical History Surgical History: Coronary Stent (x 2 after [place] 2 yrs ago) - Family History Family History: States: [place] (father and brother), Hypertension - Home Medications Home Medications: Ambulatory Orders Medication Instructions Recorded Atorvastatin [Lipitor] 40 mg PO HS 04/21/16 Hydroxychloroquine Sulfate 200 mg PO Q12 11/28/16 [Plaquenil] Albuterol/Ipratropium [Duoneb 3 3 ml INH Q8 PRN 10/06/17 mg/0.5 mg (3 ml) UD] Folic Acid 1 mg PO DAILY 12/30/17 Leflunomide [Arava] 10 mg PO DAILY 12/30/17 Ticagrelor [Brilinta] 60 mg PO BID 12/30/17 Tamsulosin [Flomax] 0.4 mg PO HS cap 01/02/18 Lisinopril [Zestril] 10 mg PO DAILY 05/26/18 Tofacitinib Citrate [Xeljanz Xr] 11 mg PO DAILY 05/26/18 Albuterol Sulfate [Proair Hfa] 2 puff IH Q6 PRN 06/24/18 Aspirin [Ecotrin] 81 mg PO DAILY 06/24/18 Budesonide/Formoterol Fumarate 2 puff IH Q12 06/24/18 [Symbicort 160-4.5 Mcg Inhaler] Calcium Carbonate/Vitamin D3 1 tab PO BID 06/24/18 [Calcium 500-Vit D3 400 Tablet] Docusate [Colace] 100 mg PO Q12 PRN 06/24/18 Ibuprofen [Motrin Tab] 800 mg PO Q6 PRN 06/24/18 Oxycodone HCl/Acetaminophen 1 tab PO Q6 PRN 06/24/18 [Endocet 10-325 mg Tablet] Promethazine HCl/Codeine 5 ml PO Q6 PRN 06/24/18 [Promethazine-Codeine Syrup] Zolpidem [Ambien] 10 mg PO HS 06/24/18 Azithromycin [Zithromax] 500 mg PO DAILY 07/01/18 Pantoprazole Sodium [Protonix] 40 mg PO DAILY 07/01/18 predniSONE [predniSONE Tab] 5 mg PO ASDIR 07/01/18 - Allergies Allergies/Adverse Reactions: Allergies Allergy/AdvReac Type Severity Reaction Status Date / Time No Known Allergies Allergy Verified 07/01/18 08:49 Review of Systems ROS Statement: Except As Marked, All Systems Reviewed And Found Negative Cardiovascular: Positive for: Chest Pain Respiratory: Positive for: Cough, Shortness of Breath, SOB with Exertion, Sputum (yellow) Gastrointestinal: Negative for: Nausea, Vomiting, Abdominal Pain Musculoskeletal: Negative for: Leg Pain (or swelling) Neurological: Negative for: Headache Physical Exam - Reviewed Nursing Documentation Reviewed: Yes Vital Signs Reviewed: Yes - Physical Exam Appears: Positive for: In Acute Distress (mild) Head Exam: Positive for: ATRAUMATIC, NORMAL INSPECTION, NORMOCEPHALIC Skin: Positive for: Normal Color Eye Exam: Positive for: Normal appearance, EOMI, PERRL ENT: Positive for: Nasal Congestion Neck: Positive for: Normal Cardiovascular/Chest: Positive for: Regular Rate, Rhythm Respiratory: Positive for: Wheezing (expiratory bilaterally), Respiratory Distress (mild) Pulses-Dorsalis Pedis (L): 2+ Pulses-Dorsalis Pedis (R): 2+ Gastrointestinal/Abdominal: Positive for: Normal Exam, Soft. Negative for: Tenderness Extremity: Positive for: Normal ROM (upper/lower). Negative for: Pedal Edema, Calf Tenderness Neurological/Psych: Positive for: Awake, Symmetric/Intact Strength (5/5), Oriented. Negative for: Motor/Sensory Deficits - Laboratory Results Result Diagrams: 07/01/18 09:48 07/01/18 10:30 Interpretation Of Abn Labs: 36 wbc, elevated bun - ECG ECG: Positive for: Interpreted By Me, Viewed By Me ECG Rhythm: Positive for: Nonspecific Changes - Radiology X-Ray: Interpreted by Me, Viewed By Me, Read By Radiologist X-Ray Interpretation: No Acute Disease - Progress ED Course And Treament: 1100: Breathing better. AAOx3. Wants to eat. 1250: Stable. AAOx3. Spoke with Dr. Son. Pt. well known to him. Will admit. Wants cta. Pt. with several visits and failed outpt. therapy. Will need further workup. Elevated wbc likely from infection and steroids. - Critical Care Total Time (In Min): 30 Documented Critical Care: Time excludes all time spent performint seperately billable procedures Medical Decision Making Medical Decision Making: Time: 918 Initial Plan: * Labs * EKG * CXR * Duoneb INH * IV fluids * Solu-medrol IVP * Blood culture Time: 1040 --Accucheck: 105mg/dL. Time: 1108 --CXR FINDINGS: LUNGS: No active pulmonary disease. PLEURA: No significant pleural effusion identified, no pneumothorax apparent. CARDIOVASCULAR: No atherosclerotic calcification present Normal. OSSEOUS STRUCTURES: No significant abnormalities. VISUALIZED UPPER ABDOMEN: Normal. OTHER FINDINGS: None. IMPRESSION: No active disease. No significant interval change compared to the prior examination(s). Scribe Attestation: Documented by Holly Giles, acting as a scribe for Duane Munson MD. Provider Scribe Attestation: All medical record entries made by the Scribe were at my direction and personally dictated by me. I have reviewed the chart and agree that the record accurately reflects my personal performance of the history, physical exam, medical decision making, and the department course for this patient. I have also personally directed, reviewed, and agree with the discharge instructions and disposition. Disposition - Clinical Impression Clinical Impression: COPD exacerbation, Pneumonia, Dehydration, Sepsis - Patient ED Disposition Is Patient to be Admitted: Yes Counseled Patient/Family Regarding: Studies Performed, Diagnosis - Disposition Disposition Time: 08:50 Condition: FAIR - Pt Status Changed To: Hospital Disposition Of: Inpatient - Admit Certification Admit to Inpatient:: After my assessment, the patient will require ho spitalization for at least two midnights. This is because of the severity of symptoms shown, intensity of services needed, and/or the medical risk in this patient being treated as an outpatient. - POA Present On Arrival: None
[2018-07-01 10:15] LABS: ALB/GLOB RATIO 1.4 (1.0-2.1); ALBUMIN 3.7 g/dL (3.5-5.0); ALT/SGPT 71 U/L (21-72); AST/SGOT 61 U/L (17-59); BLOOD UREA NITROGEN 33 mg/dl (9-20); GFR NON-AFRICAN AMERICAN > 60
[2018-07-01 10:18] LABS: B-TYPE NATRIURETIC PEPTIDE 179 pg/ml (0-900)
[2018-07-01] MEDS ORDERED: cefTRIAXone (Rocephin) 1 gm Inj IV ONE (10:31)
[2018-07-01] MEDS ORDERED: Azithromycin 500 MG in Sodium Chloride 0.9% 250 ML IVPB STA (10:34)
[2018-07-01 10:35] LABS: BANDS 5 % (0-2); LYMPHOCYTE 4 % (20-50); NEUTROPHIL 91 % (42-75); PLATELET ESTIMATE NORMAL (NORMAL); TOTAL CELLS COUNTED 100
[2018-07-01 10:38] LABS: ANISOCYTOSIS SLIGHT; BURR CELLS MODERATE; MICROCYTOSIS SLIGHT; OVALOCYTES SLIGHT; POIKILOCYTOSIS MODERATE; SCHISTOCYTES SLIGHT
[2018-07-01 10:39] LABS: TOXIC GRANULATION PRESENT
[2018-07-01 10:40] LABS: LARGE PLATELETS PRESENT
[2018-07-01 10:41] LABS: PLATELET CLUMPS PRESENT
[2018-07-01 10:44] LABS: VENOUS BLOOD GAS BASE EXCESS 1.1 mmol/L (0.0-2.0); VENOUS BLOOD GAS PCO2 26 mmHg (40-60); VENOUS BLOOD GAS PO2 62 mm/Hg (30-55); VENOUS BLOOD PH 7.55 (7.32-7.43)
[2018-07-01 11:06] LABS: ALB/GLOB RATIO 1.3 (1.0-2.1); ALBUMIN 3.1 g/dL (3.5-5.0); ALT/SGPT 59 U/L (21-72); AST/SGOT 55 U/L (17-59); BLOOD UREA NITROGEN 32 mg/dl (9-20); CALCIUM 8.5 mg/dL (8.4-10.2); GFR NON-AFRICAN AMERICAN > 60
[2018-07-01 11:08] LABS: INR 0.9; PROTHROMBIN TIME 10.4 Seconds (9.8-13.1)
--- NOTE | 2018-07-01 11:12 | RAD ---
Date of service: 07/01/2018 HISTORY: Sepsis Patient COMPARISON: 06/24/2018. FINDINGS: LUNGS: No active pulmonary disease. PLEURA: No significant pleural effusion identified, no pneumothorax apparent. CARDIOVASCULAR: No atherosclerotic calcification present Normal. OSSEOUS STRUCTURES: No significant abnormalities. VISUALIZED UPPER ABDOMEN: Normal. OTHER FINDINGS: None. IMPRESSION: No active disease. No significant interval change compared to the prior examination(s). Concordant results with the preliminary interpretation rendered by the emergency department physician procedure.
[2018-07-01] MEDS ORDERED: cefTRIAXone (Rocephin) 1 gm Inj ONE (11:13)
[2018-07-01] MEDS: Sodium Chloride 0.9% 1,000 ML IV SCH ×2 (11:14→16:37)
[2018-07-01] MEDS ORDERED: Azithromycin 500 MG IV IVPB ONE (11:14)
[2018-07-01 12:21] LABS: PARTIAL THROMBOPLASTIN TIME 19.9 Seconds (25.6-37.1)
[2018-07-01] MEDS ORDERED: Iodixanol 320 MG/ML 100 ML BOTTLE IV ONE ×2 (13:36→13:59)
[2018-07-01] MEDS ORDERED: Sodium Chloride 0.9% 50 ML IV ONE (13:37)
--- NOTE | 2018-07-01 14:56 | CT ---
Date of service: 07/01/2018 PROCEDURE: CT Chest with contrast (Pulmonary Angiogram) HISTORY: chest pain COMPARISON: 05/26/2018. CT thorax. TECHNIQUE: Axial computed tomography images were obtained of the chest in the pulmonary arterial phase of enhancement. Coronal and sagittal reformatted images were created and reviewed. Intravenous contrast dose: 90 cc Visipaque 320. Mean Hounsfield value in the main pulmonary artery: 90.10 Radiation dose: Total exam DLP = 350.60 mGy-cm. This CT exam was performed using one or more of the following dose reduction techniques: Automated exposure control, adjustment of the mA and/or kV according to patient size, and/or use of iterative reconstruction technique. FINDINGS: PULMONARY ARTERIES: Main pulmonary artery 3.3 cm in diameter. There may be a component of pulmonary arterial hypertension based on this finding. No large or central pulmonary embolism. Limitations of the current examination: Qualitative and quantitative assessment of opacification of the pulmonary arteries suboptimal. Diagnosis for pulmonary embolism is limited at and beyond the segmental pulmonary arteries. AORTA: Tortuous non aneurysmal thoracic aorta. Atherosclerotic calcifications identified primarily aortic arch. LUNGS: Chronic interstitial lung disease unchanged compared to 05/26/2018. PLEURAL SPACES: Unremarkable. No effusion or pneumothorax. HEART: Unremarkable. No cardiomegaly. No significant pericardial effusion. LYMPH NODES: No lymphadenopathy. BONES, CHEST WALL: Unremarkable. No fracture or destructive lesion OTHER FINDINGS: Incidental bilateral renal cysts. Atrophic spleen. Hepatic steatosis. IMPRESSION: No large, central pulmonary emboli. Limitations of the current examination: Poor venous access resulting in limited flow rates of contrast precludes more meaningful assessment secondary to suboptimal opacification of the pulmonary arterial system. Chronic interstitial lung disease unknown finding without new or superimposed pulmonary abnormalities.
[2018-07-01] MEDS ORDERED: Promethazine/Cod 6.25mg-10mg/5ml Syr UD PO PRN (15:46)
[2018-07-01] MEDS ORDERED: Patient's Own Med (Oxycodone Hcl/Acetaminophen [Endocet 10-325 Mg Tablet] 1 TAB) PO PRN (15:46)
[2018-07-01] MEDS ORDERED: Sodium Chloride 3% for Inhalation 4 ML VIAL.NEB IH PRN (15:49)
[2018-07-01] MEDS ORDERED: Oxycodone/Acetaminophen 5/325 mg Tab PO PRN (16:04)
[2018-07-01] MEDS: MethylPREDNISolone 40 mg Vial IVP SCH (16:39)
[2018-07-01] MEDS ORDERED: methylPREDNISolone 40 MG in Sodium Chloride 0.9% 50 ML IVPB SCH (17:00)
--- NOTE | 2018-07-01 18:25 | CARD ---
APPROVED REPORT Date of service: 07/01/2018 EKG Measurement Heart [id number] ID [id number] <Conclusion> Sinus rhythm with premature atrial complexes Possible Left atrial enlargement Borderline ECG
[2018-07-01] MEDS: Albuterol-Ipratrop 3 mg / 0.5 (3 ml) UD INH SCH ×2 (20:33→23:52)
[2018-07-01] MEDS: Cefepime 1 GM in Sodium Chloride 0.9% 100 ML IVPB SCH (21:32)
[2018-07-01] MEDS: Albuterol HFA 90 mcg/actuation (8 g) INH PRN (21:34)
[2018-07-02] MEDS: MethylPREDNISolone 40 mg Vial IVP SCH (02:01)
[2018-07-02] MEDS: Sodium Chloride 0.9% 1,000 ML IV SCH ×3 (02:01→06:30)
[2018-07-02 06:21] LABS: HEMOGLOBIN 10.3 g/dL (12.0-18.0); MEAN CELL VOLUME 89.3 fl (80.0-94.0); MEAN CORPUSCULAR HEMOGLOBIN 29.4 pg (27.0-31.0); MEAN CORPUSCULAR HGB CONC 32.9 g/dL (33.0-37.0); RBC 3.5 Mil/uL (4.40-5.90); RED CELL DISTRIBUTION WIDTH 18.3 % (11.5-14.5)
[2018-07-02 06:30] LABS: BLOOD UREA NITROGEN 23 mg/dl (9-20); CALCIUM 8.4 mg/dL (8.4-10.2); GFR NON-AFRICAN AMERICAN > 60
[2018-07-02 06:42] LABS: WHITE BLOOD COUNT 40.8 K/uL (4.8-10.8)
[2018-07-02] MEDS: Albuterol-Ipratrop 3 mg / 0.5 (3 ml) UD INH SCH ×4 (08:02→23:16)
[2018-07-02] MEDS: Cefepime 1 GM in Sodium Chloride 0.9% 100 ML IVPB SCH (09:22)
[2018-07-02] MEDS: Pantoprazole 40 mg EC Tab PO SCH (09:23)
[2018-07-02 10:47] LABS: URINE BILIRUBIN NEGATIVE (NEGATIVE); URINE BLOOD NEGATIVE (NEGATIVE); URINE CLARITY CLEAR (Clear); URINE COLOR YELLOW (YELLOW); URINE GLUCOSE (UA) NEG (NEGATIVE); URINE LEUKOCYTE ESTERASE NEG Leu/uL (Negative); URINE PROTEIN NEGATIVE (NEGATIVE); URINE UROBILINOGEN 0.2-1.0 mg/dL (0.2-1.0)
--- NOTE | 2018-07-02 13:23 | CP.PCM.HP ---
History of Present Illness - History of Present Illness History of Present Illness: CC: SOB. 72 y/o M, with multiple chronic medical conditions including ILD, CAD with cardiac Stent, R/A, also extensive Hx of admissions to hospital due to COPD Exacerbation, last time discharged on 06/24/18. [facility] for moderate SOB that began 5 days prior to ER visit, but increased on day [employer], associated to chest congestion, cough with productive yellowish phlegms, wheezing. Pt using hand held inhalers while at home with minimal relief. Worsening symptoms: GREEN, chest tightness with coughing. Aggravated factor: ADL's, walking/exercise. Pt denied: Fever, chills, n/v/d, abdominal pain, urinary symptoms, CP, palpitations, syncope, headache, back pain, sick contact. Chest CT: Limited study 2nd to poor venous access, chronic ILD unchanged compared to 05/26/18. EKG: Sinus rhythm with PAC. WBC 36,000 Pt on Steroid Present on Admission - Present on Admission Any Indicators Present on Admission: No Review of Systems - Constitutional Constitutional: Other (negative) - EENT Eyes: Requires Corrective Lenses Ears: Other (negative) Nose/Mouth/Throat: Other (negative) - Cardiovascular Cardiovascular: Other (negative) - Respiratory Respiratory: Cough, Dyspnea, Dyspnea on Exertion, Wheezing, Chest Congestion, Change in Mucous Color - Gastrointestinal Gastrointestinal: Other (negative) - Genitourinary Genitourinary: Other (negative) - Musculoskeletal Musculoskeletal: Arthralgias - Integumentary Integumentary: Other (negative) - Neurological Neurological: Other (negative) - Psychiatric Psychiatric: Abnormal Sleep Pattern - Endocrine Endocrine: Other (negative) - Hematologic/Lymphatic Hematologic: Other (negative) Past Patient History - Infectious Disease Hx of Infectious Diseases: None - Past Medical History & Family History Past Medical History?: Yes Pertinent Family History: Father and Brother: HTN, [place] - Past Social History Smoking Status: Former Smoker Alcohol: None Drugs: Denies Home Situation {Lives}: Alone - CARDIAC Hx Cardiac Disorders: Yes Hx Hypercholesterolemia: Yes Hx Hypertension: Yes - PULMONARY Hx Respiratory Disorders: Yes Hx Asthma: Yes Hx Bronchitis: Yes Hx Chronic Obstructive Pulmonary Disease (COPD): Yes Hx Emphysema: Yes Hx Pneumonia: Yes Hx Sleep Apnea: Yes - NEUROLOGICAL Hx Neurological Disorder: No - HEENT Hx HEENT Problems: Yes (cataracts) - RENAL Hx Chronic Kidney Disease: No - ENDOCRINE/METABOLIC Hx Endocrine Disorders: No Hx Diabetes Mellitus Type 2: No - HEMATOLOGICAL/ONCOLOGICAL Hx Blood Disorders: No Hx AIDS: No Hx Anemia: No Hx Human Immunodeficiency Virus (HIV): No - INTEGUMENTARY Hx Dermatological Problems: No - MUSCULOSKELETAL/RHEUMATOLOGICAL Hx Musculoskeletal Disorders: Yes Hx Arthritis: Yes Hx Falls: No Hx Osteoporosis: Yes Hx Rheumatoid Arthritis: Yes - GASTROINTESTINAL Hx Gastrointestinal Disorders: Yes Hx Diverticulitis: Yes Hx Gastritis: Yes - GENITOURINARY/GYNECOLOGICAL Hx Genitourinary Disorders: Yes Hx Prostate Problems: Yes - PSYCHIATRIC Hx Psychophysiologic Disorder: Yes Hx Anxiety: Yes Hx Depression: Yes Hx Substance Use: No - SURGICAL HISTORY Hx Surgeries: Yes Hx Coronary Stent: Yes (x 2 after [place] 2 yrs ago) - ANESTHESIA Hx Anesthesia: Yes Hx Anesthesia Reactions: No Hx Malignant Hyperthermia: No Has any member of the family had a problem w/ anesthesia?: No Meds Home Medications: Home Medication List Medication Instructions Recorded Confirmed Type Atorvastatin [Lipitor] 40 mg PO HS tab 07/01/18 Rx Allergies/Adverse Reactions: Allergies Allergy/AdvReac Type Severity Reaction Status Date / Time No Known Allergies Allergy Verified 07/01/18 08:49 Physical Exam - Constitutional Appears: No Acute Distress - Head Exam Head Exam: NORMAL INSPECTION - Eye Exam Eye Exam: PERRL - ENT Exam ENT Exam: Normal Exam - Neck Exam Neck exam: Positive for: Normal Inspection - Respiratory Exam Respiratory Exam: Decreased Breath Sounds (b/l at bases), Rales (crackles L Base), Rhonchi, Wheezes (mild expiratory) - Cardiovascular Exam Cardiovascular Exam: REGULAR RHYTHM - GI/Abdominal Exam GI & Abdominal Exam: Normal Bowel Sounds, Soft - Extremities Exam Extremities exam: Positive for: normal inspection - Back Exam Back exam: NORMAL INSPECTION - Neurological Exam Neurological exam: Alert, Oriented x3 Additional comments: No motor/sensory deficit. - Psychiatric Exam Psychiatric exam: Normal Mood - Skin Skin Exam: Warm Results - Vital Signs Recent Vital Signs: Last Vital Signs Temp 98.1 F 07/02/18 11:43 Pulse 92 H 07/02/18 11:43 Resp 18 07/02/18 11:43 BP 117/73 07/02/18 11:43 Pulse Ox 96 07/02/18 11:43 reviewed J.P. - Labs Result Diagrams: 07/04/18 05:05 07/04/18 05:05 Labs: Laboratory Results - last 24 hr 07/02/18 07/02/18 07/02/18 04:15 04:15 07:30 WBC 40.8 H* RBC 3.50 L Hgb 10.3 L Hct 31.3 L MCV 89.3 MCH 29.4 MCHC 32.9 L RDW 18.3 H Plt Count 293 Sodium 136 Potassium 4.5 Chloride 104 Carbon Dioxide 25 Anion Gap 12 BUN 23 H Creatinine 0.8 Est GFR ( Amer) > 60 Est GFR (Non-Af Amer) > 60 Random Glucose 110 Calcium 8.4 Alkaline Phosphatase 73 Urine Color Urine Clarity Urine pH Ur Specific [place] Urine Protein Urine Glucose (UA) Urine Ketones Urine Blood Urine Nitrate Urine Bilirubin Urine Urobilinogen Ur Leukocyte Esterase Urine RBC (Auto) Urine Microscopic WBC 07/02/18 10:20 WBC RBC Hgb Hct MCV MCH MCHC RDW Plt Count Sodium Potassium Chloride Carbon Dioxide Anion Gap BUN Creatinine Est GFR ( Amer) Est GFR (Non-Af Amer) Random Glucose Calcium Alkaline Phosphatase Urine Color Yellow Urine Clarity Clear Urine pH 6.0 Ur Specific [place] 1.023 Urine Protein Negative Urine Glucose (UA) Neg Urine Ketones Negative Urine Blood Negative Urine Nitrate Negative Urine Bilirubin Negative Urine Urobilinogen 0.2-1.0 Ur Leukocyte Esterase Neg Urine RBC (Auto) 2 Urine Microscopic WBC < 1 reviewed J.P. - EKG Data EKG comments: reviewed J.P. - Imaging and Cardiology Chest x-ray Status: Report reviewed by me (J.P.) CT scan - chest Status: Report reviewed by me (J.P.) Assessment & Plan (1) COPD exacerbation Status: Acute Priority: High (2) ILD (interstitial lung disease) Status: Chronic Priority: High (3) Leukocytosis Status: Acute Priority: High (4) CAD (coronary artery disease) Status: Chronic Priority: Medium (5) RA (rheumatoid arthritis) Status: Chronic Priority: Medium (6) Hypercholesteremia Status: Chronic Priority: Medium (7) BPH (benign prostatic hyperplasia) Status: Chronic Priority: Medium - Assessment and Plan (Free Text) Plan: F/U Sputum C-S, blood C-S, U C-S neg, MRSA Screen, LAP, continue Cefepime, Duoneb, Oxycodone, ASA and rest of tx. ID consult aprreciated. - Date & Time Date: 07/02/18 Time: 11:00
--- NOTE | 2018-07-02 13:24 | CP.PCM.CON ---
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 PMH COPD, Emphysema, ILD, CAD with cardiac stent, R/A NKDA FH N/C Review of Systems - Review of Systems All systems: reviewed and no additional remarkable complaints except - Constitutional Constitutional: As Per HPI, Anorexia - EENT Eyes: As Per HPI Ears: absent: As Per HPI, Decreased Hearing, Ear Discharge, Ear Pain, Tinnitus, Abnormal Hearing, Disequilibrium, Dizziness, Other Nose/Mouth/Throat: absent: As Per HPI, Epistaxis, Nasal Congestion, Nasal Discharge, Nasal Obstruction, Nasal Trauma, Nose Pain, Post Nasal Drip, Sinus Pain, Sinus Pressure, Bleeding Gums, Change in Voice, Dental Pain, Dry Mouth, Dysphagia, Halitosis, Hoarsness, Lip Swelling, Mouth Lesions, Mouth Pain, Odynophagia, Sore Throat, Throat Swelling, Tongue Swelling, Facial Pain, Neck Pain, Neck Mass, Other - Cardiovascular Cardiovascular: absent: As Per HPI, Acrocyanosis, Chest Pain, Chest Pain at Rest, Chest Pain with Activity, Claudication, Diaphoresis, Dyspnea, Dyspnea on Exertion, Edema, Irregular Heart Rhythm, Pain Radiating to Arm/Neck/Jaw, Leg Edema, Leg Ulcers, Lightheadedness, Orthopnea, Palpitations, Paroxysmal Nocturnal Dyspnea, Pedal Edema, Radiating Pain, Rapid Heart Rate, Slow Heart Rate, Syncope, Other - Respiratory Respiratory: Cough, Dyspnea - Gastrointestinal Gastrointestinal: absent: As Per HPI, Abdominal Pain, Belching, Bloating, Change in Bowel Habits, Change in Stool Character, Coffee Ground Emesis, Constipation, Cramping, Diarrhea, Dyspepsia, Dysphagia, Early Satiety, Excessive Flatus, Fecal Incontinence, Heartburn, Hematemesis, Hematochezia, Loose Stools, Melena, Na usea, Odynophagia, Temesmus, Vomiting, Other - Genitourinary Genitourinary: absent: As Per HPI, Change in Urinary Stream, Difficulty Urinating, Dysuria, Flank Pain, Hematuria, Pyuria, Nocturia, Urinary Incontinence, Urinary Frequency, Urinary Hesitance, Urinary Urgency, Voiding Freq/Small Amts, Freq UTI, Hx Renal/Bladder Calculi, Hx /Renal Surgery, Bladder Distension, Other - Integumentary Integumentary: absent: As Per HPI, Acne, Alopecia, Bleeding Lesions, Change in Hair, Change in Nails, Change in Pigmentation, Changing Lesions, Dry Skin, Erythema, Furuncle, Hirsutism, Lesions, New Lesions, Non-Healing Lesions, Photosensitivity, Pruritus, Rash, Skin Pain, Skin Ulcer, Sores, Striae, Swelling, Unusual Bruising, Wounds, Jaundice, Other - Neurological Neurological: absent: As Per HPI, Abnormal Gait, Abnormal Hearing, Abnormal Movements, Abnormal Speech, Behavioral Changes, Burning Sensations, Confusion, Convulsions, Disequilibrium, Dizziness, Numbness, Focal Weakness, Frequent Falls, Headaches, Lack of Coordination, Loss of Vision, Memory Loss, Paresthesias, Radicular Pain, Restless Legs, Sensory Deficit, Syncope, Tingling, Tremor, Vertigo, Weakness, Other Visual Disturbances, Other - Psychiatric Psychiatric: absent: As Per HPI, Abnormal Sleep Pattern, Anhedonia, Anxiety, Auditory Hallucinations, Behavioral Changes, Change in Appetite, Change in Libido, Confusion, Depression, Difficulty Concentrating, Hallucinations, Lisseth icidal Ideation, Hopelessness, Irritability, Memory Loss, Mood Swings, Panic Attacks, Paranoia, Suicidal Ideation, Visual Hallucinations, Tactile Hallucinations, Other - Endocrine Endocrine: absent: As Per HPI, Change in Body Appearance, Change in Libido, Cold Intolorance, Deepening of Voice, Excessive Sweating, Fatigue, Flushing, Heat Intolorance, Increase in Ring/Shoe/Hat Size, Palpitations, Polydipsia, Polyphagia, Polyuria, Other - Hematologic/Lymphatic Hematologic: As Per HPI Past Patient History - Infectious Disease Hx of Infectious Diseases: None - Past Medical History & Family History Past Medical History?: Yes - Past Social History Smoking Status: Former Smoker - CARDIAC Hx Cardiac Disorders: Yes Hx Hypercholesterolemia: Yes Hx Hypertension: Yes - PULMONARY Hx Respiratory Disorders: Yes Hx Asthma: Yes Hx Bronchitis: Yes Hx Chronic Obstructive Pulmonary Disease (COPD): Yes Hx Emphysema: Yes Hx Pneumonia: Yes Hx Sleep Apnea: Yes - NEUROLOGICAL Hx Neurological Disorder: No - HEENT Hx HEENT Problems: Yes (cataracts) - RENAL Hx Chronic Kidney Disease: No - ENDOCRINE/METABOLIC Hx Endocrine Disorders: No Hx Diabetes Mellitus Type 2: No - HEMATOLOGICAL/ONCOLOGICAL Hx Blood Disorders: No Hx AIDS: No Hx Anemia: No Hx Human Immunodeficiency Virus (HIV): No - INTEGUMENTARY Hx Dermatological Problems: No - MUSCULOSKELETAL/RHEUMATOLOGICAL Hx Musculoskeletal Disorders: Yes Hx Arthritis: Yes Hx Falls: No Hx Osteoporosis: Yes Hx Rheumatoid Arthritis: Yes - GASTROINTESTINAL Hx Gastrointestinal Disorders: Yes Hx Diverticulitis: Yes Hx Gastritis: Yes - GENITOURINARY/GYNECOLOGICAL Hx Genitourinary Disorders: Yes Hx Prostate Problems: Yes - PSYCHIATRIC Hx Psychophysiologic Disorder: Yes Hx Anxiety: Yes Hx Depression: Yes Hx Substance Use: No - SURGICAL HISTORY Hx Surgeries: Yes Hx Coronary Stent: Yes (x 2 after PR 2 yrs ago) - ANESTHESIA Hx Anesthesia: Yes Hx Anesthesia Reactions: No Hx Malignant Hyperthermia: No Has any member of the family had a problem w/ anesthesia?: No Meds Home Medications: Home Medication List Medication Instructions Recorded Confirmed Type Atorvastatin [Lipitor] 40 mg PO HS tab 07/01/18 Rx Allergies/Adverse Reactions: Allergies Allergy/AdvReac Type Severity Reaction Status Date / Time No Known Allergies Allergy Verified 07/01/18 08:49 - Medications Medications: Current Medications Albuterol (Ventolin Hfa 90 Mcg/Actuation (8 G)) 2 puff INH Q6 PRN PRN Reason: Shortness of Breath Last Admin: 07/01/18 21:34 Dose: 2 puff Albuterol/Ipratropium (Duoneb 3 Mg/0.5 Mg (3 Ml) Ud) 3 ml INH RQ8 [facility] Last Admin: 07/02/18 08:02 Dose: 3 ml Aspirin (Ecotrin) 81 mg PO DAILY [facility] Last Admin: 07/02/18 09:21 Dose: 81 mg Atorvastatin Calcium (Lipitor) 40 mg PO HS [facility] Last Admin: 07/01/18 21:35 Dose: 40 mg Docusate Sodium (Colace) 100 mg PO Q12 PRN PRN Reason: Constipation Folic Acid (Folic Acid) 1 mg PO DAILY [facility] Last Admin: 07/02/18 09:21 Dose: 1 mg Hydroxychloroquine Sulfate (Plaquenil) 200 mg PO Q12 [facility]; Protocol Last Admin: 07/02/18 09:22 Dose: 200 mg Cefepime HCl 1 gm/ Sodium (Chloride) 100 mls @ 100 mls/hr IVPB Q12 [facility]; Protocol Last Admin: 07/02/18 09:22 Dose: 100 mls/hr Ibuprofen (Motrin Tab) 800 mg PO Q6 PRN PRN Reason: Pain, moderate (4-7) Lisinopril (Zestril) 10 mg PO DAILY [facility] Last Admin: 07/02/18 09:23 Dose: 10 mg Oxycodone/Acetaminophen (Percocet 5/325 Mg Tab) 1 tab PO Q6H PRN PRN Reason: Pain, severe (8-10) Stop: 07/04/18 16:05 Pantoprazole Sodium (Protonix Ec Tab) 40 mg PO DAILY [facility] Last Admin: 07/02/18 09:23 Dose: 40 mg Promethazine HCl/Codeine (Phenergan/Codeine Oral Syrup) 5 ml PO Q6 PRN PRN Reason: Cough Tamsulosin HCl (Flomax) 0.4 mg PO HS [facility] Last Admin: 07/01/18 21:33 Dose: 0.4 mg Ticagrelor (Brilinta) 60 mg PO BID [facility] Last Admin: 07/02/18 09:21 Dose: 60 mg Zolpidem Tartrate (Ambien) 10 mg PO HS PRN PRN Reason: Sleep Last Admin: 07/01/18 23:10 Dose: 10 mg Physical Exam - Constitutional Appears: Non-toxic, No Acute Distress, Chronically Ill - Head Exam Head Exam: ATRAUMATIC, NORMAL INSPECTION, NORMOCEPHALIC - Eye Exam Eye Exam: EOMI, Normal appearance, PERRL Pupil Exam: NORMAL ACCOMODATION, PERRL - ENT Exam ENT Exam: Mucous Membranes Moist, Normal Exam - Neck Exam Neck exam: Positive for: Normal Inspection - Respiratory Exam Respiratory Exam: Decreased Breath Sounds, Prolonged Expiratory Phase, Rhonchi - Cardiovascular Exam Cardiovascular Exam: REGULAR RHYTHM, +S1, +S2 - GI/Abdominal Exam GI & Abdominal Exam: Diminished Bowel Sounds, Distended, Soft. absent: Rebound, Tenderness - Rectal Exam Rectal Exam: Deferred - Exam Exam: NORMAL INSPECTION - Extremities Exam Extremities exam: Positive for: normal inspection - Back Exam Back exam: NORMAL INSPECTION - Neurological Exam Neurological exam: Alert, CN II-XII Intact, Normal Gait, Oriented x3, Reflexes Normal - Psychiatric Exam Psychiatric exam: Normal Affect, Normal Mood - Skin Skin Exam: Dry, Intact, Normal Color, Warm Results - Vital Signs Recent Vital Signs: Last Vital Signs Temp 98.1 F 07/02/18 11:43 Pulse 92 H 07/02/18 11:43 Resp 18 07/02/18 11:43 BP 117/73 07/02/18 11:43 Pulse Ox 96 07/02/18 11:43 - Labs Result Diagrams: 07/02/18 04:15 07/02/18 04:15 Labs: Laboratory Results - last 24 hr 07/02/18 07/02/18 07/02/18 04:15 04:15 07:30 WBC 40.8 H* RBC 3.50 L Hgb 10.3 L Hct 31.3 L MCV 89.3 MCH 29.4 MCHC 32.9 L RDW 18.3 H Plt Count 293 Sodium 136 Potassium 4.5 Chloride 104 Carbon Dioxide 25 Anion Gap 12 BUN 23 H Creatinine 0.8 Est GFR ( Amer) > 60 Est GFR (Non-Af Amer) > 60 Random Glucose 110 Calcium 8.4 Alkaline Phosphatase 73 Urine Color Urine Clarity Urine pH Ur Specific Victor Urine Protein Urine Glucose (UA) Urine Ketones Urine Blood Urine Nitrate Urine Bilirubin Urine Urobilinogen Ur Leukocyte Esterase Urine RBC (Auto) Urine Microscopic WBC 07/02/18 10:20 WBC RBC Hgb Hct MCV MCH MCHC RDW Plt Count Sodium Potassium Chloride Carbon Dioxide Anion Gap BUN Creatinine Est GFR ( Amer) Est GFR (Non-Af Amer) Random Glucose Calcium Alkaline Phosphatase Urine Color Yellow Urine Clarity Clear Urine pH 6.0 Ur Specific Victor 1.023 Urine Protein Negative Urine Glucose (UA) Neg Urine Ketones Negative Urine Blood Negative Urine Nitrate Negative Urine Bilirubin Negative Urine Urobilinogen 0.2-1.0 Ur Leukocyte Esterase Neg Urine RBC (Auto) 2 Urine Microscopic WBC < 1 Assessment & Plan - Assessment and Plan (Free Text) Assessment: 72 y/o M, admitted for for SOB , increased DOA, intermittent cough with yellowish phlegm, wheezing and chest congestion, Found to have WBC 40 K Referred or ID evaluation for this Pt was admitted in [facility], due to COPD Exacerbation, also with MHx of PR, CAD- Stent, 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 r/o infection vcs leukemoid reaction secondary to steroids additional cultures sent procalcitonin pending IV Cefepime / Vanco
[2018-07-02] MEDS: Albuterol HFA 90 mcg/actuation (8 g) INH PRN (14:37)
[2018-07-02] MEDS: Cefepime 2 GM in Sodium Chloride 0.9% 100 ML IVPB SCH (21:28)
[2018-07-03] MEDS: Albuterol-Ipratrop 3 mg / 0.5 (3 ml) UD INH SCH ×4 (07:13→23:44)
[2018-07-03 07:41] LABS: HEMOGLOBIN 9.5 g/dL (12.0-18.0); LYMPH % 3.6 % (20.0-40.0); MEAN CELL VOLUME 87.9 fl (80.0-94.0); MEAN CORPUSCULAR HEMOGLOBIN 29.4 pg (27.0-31.0); MEAN CORPUSCULAR HGB CONC 33.5 g/dL (33.0-37.0); MONO % 3.8 % (0.0-10.0); NEUT # 24.3 K/uL (1.8-7.0); NEUT % 92.6 % (50.0-75.0); PLATELET COUNT 300 K/uL (130-400); RBC 3.24 Mil/uL (4.40-5.90); RED CELL DISTRIBUTION WIDTH 18.4 % (11.5-14.5); WHITE BLOOD COUNT 26.3 K/uL (4.8-10.8)
[2018-07-03] MEDS: Pantoprazole 40 mg EC Tab PO SCH (08:38)
[2018-07-03] MEDS: Cefepime 2 GM in Sodium Chloride 0.9% 100 ML IVPB SCH ×2 (08:38→22:01)
[2018-07-03 11:18] LABS: ANISOCYTOSIS SLIGHT; BANDS 1 % (0-2); HYPOCHROMIC SLIGHT; LYMPHOCYTE 7 % (20-50); MONOCYTE 3 % (0-10); NEUTROPHIL 89 % (42-75); PLATELET ESTIMATE NORMAL (NORMAL); POIKILOCYTOSIS SLIGHT; TOTAL CELLS COUNTED 100
[2018-07-03 11:19] LABS: BURR CELLS SLIGHT; LARGE PLATELETS PRESENT; OVALOCYTES SLIGHT; SCHISTOCYTES SLIGHT
[2018-07-03] MEDS ORDERED: Albuterol-Ipratrop 3 mg / 0.5 (3 ml) UD INH ONE (12:30)
--- NOTE | 2018-07-03 14:33 | CP.PCM.PN ---
Subjective - Date & Time of Evaluation Date of Evaluation: 07/03/18 Time of Evaluation: 13:30 - Subjective Subjective: F/U COPD Exacerbation. SOB, Chest congestion, cough with thick yellowish flegm paroxismal at times with difficuly to sleep Objective - Vital Signs/Intake and Output Vital Signs (last 24 hours): Temp Pulse Resp BP Pulse Ox 97.5 F L 74 20 100/63 96 07/03/18 12:24 07/03/18 12:24 07/03/18 12:24 07/03/18 12:24 07/03/18 12:24 - Medications Medications: Current Medications Acetylcysteine (Mucomyst 10% 4ml) 2 ml IH RQ8 [facility] Albuterol (Ventolin Hfa 90 Mcg/Actuation (8 G)) 2 puff INH Q6 PRN PRN Reason: Shortness of Breath Last Admin: 07/02/18 14:37 Dose: 2 puff Albuterol/Ipratropium (Duoneb 3 Mg/0.5 Mg (3 Ml) Ud) 3 ml INH RQ4 [facility] Aspirin (Ecotrin) 81 mg PO DAILY [facility] Last Admin: 07/03/18 08:37 Dose: 81 mg Atorvastatin Calcium (Lipitor) 40 mg PO HS [facility] Last Admin: 07/02/18 21:31 Dose: 40 mg Docusate Sodium (Colace) 100 mg PO Q12 PRN PRN Reason: Constipation Folic Acid (Folic Acid) 1 mg PO DAILY [facility] Last Admin: 07/03/18 08:37 Dose: 1 mg Guaifenesin/Dextromethorphan (Mucinex-Dm 600-30 Mg) 1 tab PO BID [facility] Hydroxychloroquine Sulfate (Plaquenil) 200 mg PO Q12 [facility]; Protocol Last Admin: 07/03/18 08:38 Dose: 200 mg Cefepime HCl 2 gm/ Sodium (Chloride) 100 mls @ 100 mls/hr IVPB Q12 [facility]; Protocol Last Admin: 07/03/18 08:38 Dose: 100 mls/hr Ibuprofen (Motrin Tab) 800 mg PO Q6 PRN PRN Reason: Pain, moderate (4-7) Lisinopril (Zestril) 10 mg PO DAILY [facility] Last Admin: 07/03/18 08:38 Dose: 10 mg Methylprednisolone (Solu-Medrol) 40 mg IVP Q6 [facility] Oxycodone/Acetaminophen (Percocet 5/325 Mg Tab) 1 tab PO Q6H PRN PRN Reason: Pain, severe (8-10) Stop: 07/04/18 16:05 Pantoprazole Sodium (Protonix Ec Tab) 40 mg PO DAILY [facility] Last Admin: 07/03/18 08:38 Dose: 40 mg Promethazine HCl/Codeine (Phenergan/Codeine Oral Syrup) 5 ml PO Q4 PRN PRN Reason: Cough and congestion Tamsulosin HCl (Flomax) 0.4 mg PO HS [facility] Last Admin: 07/02/18 21:31 Dose: 0.4 mg Ticagrelor (Brilinta) 60 mg PO BID [facility] Last Admin: 07/03/18 08:36 Dose: 60 mg Zolpidem Tartrate (Ambien) 10 mg PO HS PRN PRN Reason: Sleep Last Admin: 07/02/18 22:33 Dose: 10 mg - Labs Labs: 07/03/18 05:02 07/02/18 04:15 PT 10.4 Seconds (9.8-13.1) 07/01/18 10:30 INR 0.9 07/01/18 10:30 APTT 19.9 Seconds (25.6-37.1) L 07/01/18 10:30 - Constitutional Appears: No Acute Distress - Head Exam Head Exam: NORMAL INSPECTION - Eye Exam Eye Exam: PERRL - ENT Exam ENT Exam: Normal Exam - Neck Exam Neck Exam: Normal Inspection - Respiratory Exam Respiratory Exam: Decreased Breath Sounds (b/l at bases), Rhonchi, Wheezes (scattered) - Cardiovascular Exam Cardiovascular Exam: REGULAR RHYTHM - GI/Abdominal Exam GI & Abdominal Exam: Soft, Normal Bowel Sounds - Extremities Exam Extremities Exam: Normal Inspection - Neurological Exam Neurological Exam: Alert, Oriented x3. absent: Motor Sensory Deficit - Psychiatric Exam Psychiatric exam: Normal Mood - Skin Skin Exam: Warm Assessment and Plan (1) COPD exacerbation Status: Acute (2) ILD (interstitial lung disease) Status: Chronic (3) Leukocytosis Status: Acute (4) CAD (coronary artery disease) Status: Chronic (5) RA (rheumatoid arthritis) Status: Chronic (6) Hypercholesteremia Status: Chronic (7) BPH (benign prostatic hyperplasia) Status: Chronic - Assessment and Plan (Free Text) Plan: off SoluMedrol leukocytosis decreased to 26, start SoluMedrol, DuoNeb, Mucomyst, Mucinex, Prometh with Codeine, f/u sputum C-S
[2018-07-03] MEDS: Acetylcysteine 10% 4 ML IH SCH ×2 (15:17→23:44)
[2018-07-03] MEDS ORDERED: Promethazine/Cod 6.25mg-10mg/5ml Syr UD PO SCH (17:00)
[2018-07-03] MEDS: guaiFENesin-DM 600-30 mg ER Tab PO SCH (17:09)
[2018-07-03] MEDS: Albuterol HFA 90 mcg/actuation (8 g) INH PRN (18:41)
[2018-07-03] MEDS: Promethazine/Cod 6.25mg-10mg/5ml Syr UD PO PRN (18:43)
[2018-07-03] MEDS: MethylPREDNISolone 40 mg Vial IVP SCH (22:03)
[2018-07-04] MEDS: Promethazine/Cod 6.25mg-10mg/5ml Syr UD PO PRN (00:13)
[2018-07-04] MEDS: Albuterol HFA 90 mcg/actuation (8 g) INH PRN ×2 (00:16→10:09)
[2018-07-04] MEDS: MethylPREDNISolone 40 mg Vial IVP SCH ×4 (04:34→22:10)
[2018-07-04] MEDS: Albuterol-Ipratrop 3 mg / 0.5 (3 ml) UD INH SCH ×5 (05:00→19:03)
[2018-07-04 06:48] LABS: BASO % 0.1 % (0.0-2.0); HEMOGLOBIN 10.2 g/dL (12.0-18.0); LYMPH # 0.1 K/uL (1.0-4.3); LYMPH % 0.8 % (20.0-40.0); MEAN CELL VOLUME 87.6 fl (80.0-94.0); MEAN CORPUSCULAR HEMOGLOBIN 29.1 pg (27.0-31.0); MEAN CORPUSCULAR HGB CONC 33.2 g/dL (33.0-37.0); MONO # 0.3 K/uL (0.0-0.8); MONO % 1.6 % (0.0-10.0); NEUT # 15.6 K/uL (1.8-7.0); NEUT % 97.5 % (50.0-75.0); PLATELET COUNT 294 K/uL (130-400); RED CELL DISTRIBUTION WIDTH 18.3 % (11.5-14.5)
[2018-07-04 06:53] LABS: BLOOD UREA NITROGEN 19 mg/dl (9-20); CALCIUM 8.7 mg/dL (8.4-10.2); GFR NON-AFRICAN AMERICAN > 60
[2018-07-04] MEDS: Acetylcysteine 10% 4 ML IH SCH ×2 (07:33→15:29)
[2018-07-04] MEDS: guaiFENesin-DM 600-30 mg ER Tab PO SCH ×2 (10:07→16:08)
[2018-07-04] MEDS: Pantoprazole 40 mg EC Tab PO SCH (10:11)
[2018-07-04 11:15] LABS: ANISOCYTOSIS SLIGHT; LYMPHOCYTE 3 % (20-50); MONOCYTE 3 % (0-10); NEUTROPHIL 94 % (42-75); PLATELET ESTIMATE NORMAL (NORMAL); TOTAL CELLS COUNTED 100
[2018-07-04 11:16] LABS: HYPOCHROMIC SLIGHT; POIKILOCYTOSIS SLIGHT; SCHISTOCYTES SLIGHT; TARGET CELLS SLIGHT
--- NOTE | 2018-07-04 12:40 | CP.PCM.PN ---
Subjective - Date & Time of Evaluation Date of Evaluation: 07/04/18 Time of Evaluation: 09:00 - Subjective Subjective: events noted MRSA sputum + Varicella Zoster Objective - Vital Signs/Intake and Output Vital Signs (last 24 hours): Temp Pulse Resp BP Pulse Ox 97.8 F 101 H 18 145/85 98 07/04/18 12:15 07/04/18 12:15 07/04/18 12:15 07/04/18 12:15 07/04/18 12:15 - Medications Medications: Current Medications Acetylcysteine (Mucomyst 10% 4ml) 2 ml IH RQ8 [facility] Last Admin: 07/04/18 07:33 Dose: 2 ml Acyclovir (Zovirax) 800 mg PO 5XD [facility]; Protocol Albuterol (Ventolin Hfa 90 Mcg/Actuation (8 G)) 2 puff INH Q6 PRN PRN Reason: Shortness of Breath Last Admin: 07/04/18 10:09 Dose: 2 puff Albuterol/Ipratropium (Duoneb 3 Mg/0.5 Mg (3 Ml) Ud) 3 ml INH RQ4 [facility] Last Admin: 07/04/18 11:28 Dose: 3 ml Aspirin (Ecotrin) 81 mg PO DAILY [facility] Last Admin: 07/04/18 10:12 Dose: 81 mg Atorvastatin Calcium (Lipitor) 40 mg PO HS [facility] Last Admin: 07/03/18 22:01 Dose: 40 mg Capsaicin (Trixaicin Cream) 1 applic TOP Q6 PRN PRN Reason: Rash Docusate Sodium (Colace) 100 mg PO Q12 PRN PRN Reason: Constipation Folic Acid (Folic Acid) 1 mg PO DAILY [facility] Last Admin: 07/04/18 10:06 Dose: 1 mg Guaifenesin/Dextromethorphan (Mucinex-Dm 600-30 Mg) 1 tab PO BID [facility] Last Admin: 07/04/18 10:07 Dose: 1 tab Hydroxychloroquine Sulfate (Plaquenil) 200 mg PO Q12 [facility]; Protocol Last Admin: 07/04/18 10:10 Dose: 200 mg Vancomycin HCl 1 gm/ Sodium (Chloride) 250 mls @ 166.667 mls/hr IVPB DAILY [facility]; Protocol Last Admin: 07/04/18 10:03 Dose: 166.667 mls/hr Ibuprofen (Motrin Tab) 800 mg PO Q6 PRN PRN Reason: Pain, moderate (4-7) Lisinopril (Zestril) 10 mg PO DAILY [facility] Last Admin: 07/04/18 10:10 Dose: 10 mg Methylprednisolone (Solu-Medrol) 40 mg IVP Q6 [facility] Last Admin: 07/04/18 10:05 Dose: 40 mg Oxycodone/Acetaminophen (Percocet 5/325 Mg Tab) 1 tab PO Q6H PRN PRN Reason: Pain, severe (8-10) Stop: 07/04/18 16:05 Pantoprazole Sodium (Protonix Ec Tab) 40 mg PO DAILY [facility] Last Admin: 07/04/18 10:11 Dose: 40 mg Promethazine HCl/Codeine (Phenergan/Codeine Oral Syrup) 5 ml PO Q4 PRN PRN Reason: Cough and congestion Last Admin: 07/04/18 00:13 Dose: 5 ml Tamsulosin HCl (Flomax) 0.4 mg PO HS [facility] Last Admin: 07/03/18 22:01 Dose: 0.4 mg Ticagrelor (Brilinta) 60 mg PO BID [facility] Last Admin: 07/04/18 10:06 Dose: 60 mg Zolpidem Tartrate (Ambien) 10 mg PO HS PRN PRN Reason: Sleep Last Admin: 07/03/18 22:06 Dose: 10 mg - Labs Labs: 07/04/18 05:05 07/04/18 05:05 PT 10.4 Seconds (9.8-13.1) 07/01/18 10:30 INR 0.9 07/01/18 10:30 APTT 19.9 Seconds (25.6-37.1) L 07/01/18 10:30 - Constitutional Appears: Well - Head Exam Head Exam: ATRAUMATIC, NORMAL INSPECTION, NORMOCEPHALIC - Eye Exam Eye Exam: EOMI, Normal appearance, PERRL Pupil Exam: NORMAL ACCOMODATION, PERRL - ENT Exam ENT Exam: Mucous Membranes Moist, Normal Exam - Neck Exam Neck Exam: Full ROM, Normal Inspection. absent: Lymphadenopathy - Respiratory Exam Respiratory Exam: Decreased Breath Sounds, Clear to Ausculation Bilateral, Prolonged Expiratory Phase - Cardiovascular Exam Cardiovascular Exam: REGULAR RHYTHM, +S1, +S2. absent: Murmur - GI/Abdominal Exam GI & Abdominal Exam: Soft, Normal Bowel Sounds. absent: Tenderness - Rectal Exam Rectal Exam: Deferred - Exam Exam: NORMAL INSPECTION - Extremities Exam Extremities Exam: Full ROM, Normal Capillary Refill, Normal Inspection. absent: Joint Swelling, Pedal Edema - Back Exam Back Exam: NORMAL INSPECTION - Neurological Exam Neurological Exam: Alert, Awake, CN II-XII Intact, Normal Gait, Oriented x3 - Psychiatric Exam Psychiatric exam: Normal Affect, Normal Mood - Skin Skin Exam: Dry, Intact, Vesicles, Warm Additional comments: rash on right buttock consistent with VZV Assessment and Plan (1) Shingles outbreak Status: Acute (2) Shingles rash Status: Acute (3) Thigh shingles Status: Acute (4) COPD exacerbation Status: Acute (5) Dehydration Status: Acute (6) Leukocytosis Status: Acute (7) Pneumonia Status: Acute (8) Sepsis Status: Acute (9) MRSA (methicillin resistant staph aureus) culture positive Status: Acute - Assessment and Plan (Free Text) Assessment: cont vanco acyclovir rx as per Dr Son
--- NOTE | 2018-07-04 14:33 | CP.PCM.PN ---
Subjective - Date & Time of Evaluation Date of Evaluation: 07/04/18 Time of Evaluation: 14:05 - Subjective Subjective: F/U COPD Exacerbation Awake, breathing better, less chest congestion, cough improved. Objective - Vital Signs/Intake and Output Vital Signs (last 24 hours): Temp Pulse Resp BP Pulse Ox 97.8 F 101 H 18 145/85 98 07/04/18 12:15 07/04/18 12:15 07/04/18 12:15 07/04/18 12:15 07/04/18 12:15 - Medications Medications: Current Medications Acetylcysteine (Mucomyst 10% 4ml) 2 ml IH RQ8 [facility] Last Admin: 07/04/18 07:33 Dose: 2 ml Acyclovir (Zovirax) 800 mg PO 5XD [facility]; Protocol Last Admin: 07/04/18 13:48 Dose: 800 mg Albuterol (Ventolin Hfa 90 Mcg/Actuation (8 G)) 2 puff INH Q6 PRN PRN Reason: Shortness of Breath Last Admin: 07/04/18 10:09 Dose: 2 puff Albuterol/Ipratropium (Duoneb 3 Mg/0.5 Mg (3 Ml) Ud) 3 ml INH RQ4 [facility] Last Admin: 07/04/18 11:28 Dose: 3 ml Aspirin (Ecotrin) 81 mg PO DAILY [facility] Last Admin: 07/04/18 10:12 Dose: 81 mg Atorvastatin Calcium (Lipitor) 40 mg PO HS [facility] Last Admin: 07/03/18 22:01 Dose: 40 mg Capsaicin (Trixaicin Cream) 1 applic TOP Q6 PRN PRN Reason: Rash Last Admin: 07/04/18 13:50 Dose: 1 applic Docusate Sodium (Colace) 100 mg PO Q12 PRN PRN Reason: Constipation Folic Acid (Folic Acid) 1 mg PO DAILY [facility] Last Admin: 07/04/18 10:06 Dose: 1 mg Guaifenesin/Dextromethorphan (Mucinex-Dm 600-30 Mg) 1 tab PO BID [facility] Last Admin: 07/04/18 10:07 Dose: 1 tab Hydroxychloroquine Sulfate (Plaquenil) 200 mg PO Q12 [facility]; Protocol Last Admin: 07/04/18 10:10 Dose: 200 mg Vancomycin HCl 1 gm/ Sodium (Chloride) 250 mls @ 125 mls/hr IVPB Q12H [facility]; Prot ocol Ibuprofen (Motrin Tab) 800 mg PO Q6 PRN PRN Reason: Pain, moderate (4-7) Lisinopril (Zestril) 10 mg PO DAILY [facility] Last Admin: 07/04/18 10:10 Dose: 10 mg Methylprednisolone (Solu-Medrol) 40 mg IVP Q6 [facility] Last Admin: 07/04/18 10:05 Dose: 40 mg Oxycodone/Acetaminophen (Percocet 5/325 Mg Tab) 1 tab PO Q6H PRN PRN Reason: Pain, severe (8-10) Stop: 07/04/18 16:05 Pantoprazole Sodium (Protonix Ec Tab) 40 mg PO DAILY [facility] Last Admin: 07/04/18 10:11 Dose: 40 mg Promethazine HCl/Codeine (Phenergan/Codeine Oral Syrup) 5 ml PO Q4 PRN PRN Reason: Cough and congestion Last Admin: 07/04/18 00:13 Dose: 5 ml Tamsulosin HCl (Flomax) 0.4 mg PO HS [facility] Last Admin: 07/03/18 22:01 Dose: 0.4 mg Ticagrelor (Brilinta) 60 mg PO BID [facility] Last Admin: 07/04/18 10:06 Dose: 60 mg Zolpidem Tartrate (Ambien) 10 mg PO HS PRN PRN Reason: Sleep Last Admin: 07/03/18 22:06 Dose: 10 mg - Labs Labs: 07/04/18 05:05 07/04/18 05:05 PT 10.4 Seconds (9.8-13.1) 07/01/18 10:30 INR 0.9 07/01/18 10:30 APTT 19.9 Seconds (25.6-37.1) L 07/01/18 10:30 - Constitutional Appears: No Acute Distress - Head Exam Head Exam: NORMAL INSPECTION - Eye Exam Eye Exam: PERRL - ENT Exam ENT Exam: Normal Exam - Neck Exam Neck Exam: Normal Inspection - Respiratory Exam Respiratory Exam: Decreased Breath Sounds (at bases), Rhonchi (scattered), Wheezes Additional comments: Crackles L base - Cardiovascular Exam Cardiovascular Exam: REGULAR RHYTHM - GI/Abdominal Exam GI & Abdominal Exam: Soft, Normal Bowel Sounds - Extremities Exam Extremities Exam: Normal Inspection - Back Exam Additional comments: R gluteal blister with erythematous base. - Neurological Exam Neurological Exam: Alert, Awake, Oriented x3. absent: Motor Sensory Deficit - Psychiatric Exam Psychiatric exam: Normal Mood - Skin Skin Exam: Warm Assessment and Plan (1) MRSA (methicillin resistant staphylococcus aureus) pneumonia Status: Acute (2) COPD exacerbation Status: Acute (3) Herpes zoster Assessment & Plan: R Gluteal area Status: Acute (4) ILD (interstitial lung disease) Status: Chronic (5) Leukocytosis Status: Acute (6) CAD (coronary artery disease) Status: Chronic (7) RA (rheumatoid arthritis) Status: Chronic (8) Hypercholesteremia Status: Chronic (9) BPH (benign prostatic hyperplasia) Status: Chronic - Assessment and Plan (Free Text) Plan: Sputun + Staph MRSA, WBC decreased to 16.0, continue Vanco, Duoneb, Mucomyst, Solu-Medrol, Sovirax for Tx of Herpes Zoster.
[2018-07-04] MEDS: Cefepime 2 GM in Sodium Chloride 0.9% 100 ML IVPB SCH (16:18)
[2018-07-05] MEDS: Albuterol-Ipratrop 3 mg / 0.5 (3 ml) UD INH SCH ×5 (00:18→15:33)
[2018-07-05] MEDS: Acetylcysteine 10% 4 ML IH SCH ×3 (00:19→15:33)
[2018-07-05] MEDS: MethylPREDNISolone 40 mg Vial IVP SCH ×3 (04:40→18:49)
[2018-07-05] MEDS: guaiFENesin-DM 600-30 mg ER Tab PO SCH ×2 (09:46→17:19)
[2018-07-05] MEDS: Pantoprazole 40 mg EC Tab PO SCH (09:47)
[2018-07-05 11:53] VITALS: O2SAT 98
--- NOTE | 2018-07-05 12:24 | CP.PCM.PCO ---
Assessment & Plan - Assessment and Plan (Free Text) Assessment: pt. seen and examined, feels well, less cough, denies sob, cp vss. labs noted, wbc decreased to 16 sputum cx + mrsa pt. will require 7 more days on Vancomycin 1gm ivpb q12 as per monitor cbc, bmp, vanco trough pt. cleared for d/c to TCU today above d/w f/u with /
--- NOTE | 2018-07-05 12:28 | CP.PCM.PN ---
Subjective - Date & Time of Evaluation Date of Evaluation: 07/05/18 Time of Evaluation: 09:00 - Subjective Subjective: rx in progress for possible TCU for MRSA pneumonia Objective - Vital Signs/Intake and Output Vital Signs (last 24 hours): Temp Pulse Resp BP Pulse Ox 97.5 F L 101 H 18 137/75 98 07/05/18 11:52 07/05/18 11:52 07/05/18 11:52 07/05/18 11:52 07/05/18 11:52 - Medications Medications: Current Medications Acetylcysteine (Mucomyst 10% 4ml) 2 ml IH RQ8 [facility] Last Admin: 07/05/18 07:21 Dose: 2 ml Acyclovir (Zovirax) 800 mg PO 5XD [facility]; Protocol Last Admin: 07/05/18 09:48 Dose: 800 mg Albuterol (Ventolin Hfa 90 Mcg/Actuation (8 G)) 2 puff INH Q6 PRN PRN Reason: Shortness of Breath Last Admin: 07/04/18 10:09 Dose: 2 puff Albuterol/Ipratropium (Duoneb 3 Mg/0.5 Mg (3 Ml) Ud) 3 ml INH RQ4 [facility] Last Admin: 07/05/18 11:38 Dose: 3 ml Aspirin (Ecotrin) 81 mg PO DAILY [facility] Last Admin: 07/05/18 09:46 Dose: 81 mg Atorvastatin Calcium (Lipitor) 40 mg PO HS [facility] Last Admin: 07/04/18 22:10 Dose: 40 mg Capsaicin (Trixaicin Cream) 1 applic TOP Q6 PRN PRN Reason: Rash Last Admin: 07/04/18 13:50 Dose: 1 applic Docusate Sodium (Colace) 100 mg PO Q12 PRN PRN Reason: Constipation Folic Acid (Folic Acid) 1 mg PO DAILY [facility] Last Admin: 07/05/18 09:46 Dose: 1 mg Guaifenesin/Dextromethorphan (Mucinex-Dm 600-30 Mg) 1 tab PO BID [facility] Last Admin: 07/05/18 09:46 Dose: 1 tab Hydroxychloroquine Sulfate (Plaquenil) 200 mg PO Q12 [facility]; Protocol Last Admin: 07/05/18 09:47 Dose: 200 mg Vancomycin HCl 1 gm/ Sodium (Chloride) 250 mls @ 125 mls/hr IVPB Q12H [facility]; Protocol Last Admin: 07/05/18 02:34 Dose: 125 mls/hr Ibuprofen (Motrin Tab) 800 mg PO Q6 PRN PRN Reason: Pain, moderate (4-7) Lisinopril (Zestril) 10 mg PO DAILY [facility] Last Admin: 07/05/18 09:48 Dose: 10 mg Methylprednisolone (Solu-Medrol) 40 mg IVP Q6 [facility] Last Admin: 07/05/18 04:40 Dose: 40 mg Pantoprazole Sodium (Protonix Ec Tab) 40 mg PO DAILY [facility] Last Admin: 07/05/18 09:47 Dose: 40 mg Promethazine HCl/Codeine (Phenergan/Codeine Oral Syrup) 5 ml PO Q4 PRN PRN Reason: Cough and congestion Last Admin: 07/04/18 00:13 Dose: 5 ml Tamsulosin HCl (Flomax) 0.4 mg PO HS [facility] Last Admin: 07/04/18 22:10 Dose: 0.4 mg Ticagrelor (Brilinta) 60 mg PO BID [facility] Last Admin: 07/05/18 09:45 Dose: 60 mg Zolpidem Tartrate (Ambien) 10 mg PO HS PRN PRN Reason: Sleep Last Admin: 07/03/18 22:06 Dose: 10 mg - Labs Labs: 07/04/18 05:05 07/04/18 05:05 PT 10.4 Seconds (9.8-13.1) 07/01/18 10:30 INR 0.9 07/01/18 10:30 APTT 19.9 Seconds (25.6-37.1) L 07/01/18 10:30 Assessment and Plan (1) Shingles outbreak Status: Acute (2) Shingles rash Status: Acute (3) Thigh shingles Status: Acute (4) COPD exacerbation Status: Acute (5) Dehydration Status: Acute (6) Leukocytosis Status: Acute (7) Pneumonia Status: Acute (8) Sepsis Status: Acute (9) MRSA (methicillin resistant staph aureus) culture positive Status: Acute
--- NOTE | 2018-07-05 15:07 | CP.PCM.DIS ---
Provider - Provider Date of Admission: 07/01/18 12:56 Attending physician: Kareem Son MD Consults: 07/01/18 16:12 Case Management Referral Routine Comment: Physician Instructions: Reason For Exam: Reason for Referral: Discharge Planning Nursing Referral for Palliative Care Routine Comment: Consulting Provider: Kendra Arriola Physician Instructions: Reason For Exam: Nursing assessement Social Work Referral Routine Comment: Lives alone Physician Instructions: Reason For Exam: Discharge planning 07/02/18 10:46 Infectious Disease Consult Routine Comment: Consulting Provider: Reginald Rondon Consulting Physician: Reginald Rondon Reason for Consult: leukocytosis, Diagnosis - Discharge Diagnosis (1) COPD exacerbation Status: Acute Priority: High (2) ILD (interstitial lung disease) Status: Chronic Priority: High (3) Leukocytosis Status: Acute Priority: High (4) CAD (coronary artery disease) Status: Chronic Priority: Medium (5) RA (rheumatoid arthritis) Status: Chronic Priority: Medium (6) Hypercholesteremia Status: Chronic Priority: Medium (7) BPH (benign prostatic hyperplasia) Status: Chronic Priority: Medium Hospital Course - Lab Results Lab Results: Micro Results 07/03/18 18:45 Naris MRSA Culture (Admit) - Final MRSA DETECTED 07/01/18 09:48 Blood Blood Culture - Preliminary NO GROWTH AFTER 4 DAYS 07/01/18 09:44 Blood Blood Culture - Preliminary NO GROWTH AFTER 4 DAYS 07/02/18 07:45 Blood Blood Culture - Preliminary NO GROWTH AFTER 3 DAYS 07/02/18 07:30 Blood Blood Culture - Preliminary NO GROWTH AFTER 3 DAYS 07/02/18 03:50 Sputum Gram Stain - Final 07/02/18 03:50 Sputum Sputum Culture - Final Methicillin Resistant S Aureus 07/02/18 10:20 Urine Random Urine Culture - Final No Growth (<1,000 CFU/ML) Most Recent Lab Values WBC 16.0 K/uL (4.8-10.8) H 07/04/18 05:05 RBC 3.50 Mil/uL (4.40-5.90) L 07/04/18 05:05 Hgb 10.2 g/dL (12.0-18.0) L 07/04/18 05:05 Hct 30.6 % (35.0-51.0) L 07/04/18 05:05 MCV 87.6 fl (80.0-94.0) 07/04/18 05:05 MCH 29.1 pg (27.0-31.0) 07/04/18 05:05 MCHC 33.2 g/dL (33.0-37.0) 07/04/18 05:05 RDW 18.3 % (11.5-14.5) H 07/04/18 05:05 Plt Count 294 K/uL (130-400) 07/04/18 05:05 MPV 10.0 fl (7.2-11.7) 07/04/18 05:05 Neut % (Auto) 97.5 % (50.0-75.0) H 07/04/18 05:05 Lymph % (Auto) 0.8 % (20.0-40.0) L 07/04/18 05:05 [place] % (Auto) 1.6 % (0.0-10.0) 07/04/18 05:05 Eos % (Auto) 0.0 % (0.0-4.0) 07/04/18 05:05 Baso % (Auto) 0.1 % (0.0-2.0) 07/04/18 05:05 Neut # (Auto) 15.6 K/uL (1.8-7.0) H 07/04/18 05:05 Lymph # (Auto) 0.1 K/uL (1.0-4.3) L 07/04/18 05:05 [place] # (Auto) 0.3 K/uL (0.0-0.8) 07/04/18 05:05 Eos # (Auto) 0.0 K/uL (0.0-0.7) 07/04/18 05:05 Baso # (Auto) 0.0 K/uL (0.0-0.2) 07/04/18 05:05 Neutrophils % (Manual) 94 % (42-75) H 07/04/18 05:05 Band Neutrophils % 1 % (0-2) 07/03/18 05:02 Lymphocytes % (Manual) 3 % (20-50) L 07/04/18 05:05 Monocytes % (Manual) 3 % (0-10) 07/04/18 05:05 Toxic Granulation Present 07/01/18 09:48 Platelet Estimate Normal (NORMAL) 07/04/18 05:05 Plt Clumps, EDTA Present 07/01/18 09:48 Large Platelets Present 07/03/18 05:02 Hypochromasia (manual) Slight 07/04/18 05:05 Poikilocytosis (manual Slight 07/04/18 05:05 Anisocytosis (manual) Slight 07/04/18 05:05 Microcytosis (manual) Slight 07/01/18 09:48 Target Cells Slight 07/04/18 05:05 Ovalocytes Slight 07/03/18 05:02 Arlette Cells Slight 07/03/18 05:02 Acanthocytes (Spur) Moderate 07/04/18 05:05 Schistocytes Slight 07/04/18 05:05 PT 10.4 Seconds (9.8-13.1) 07/01/18 10:30 INR 0.9 07/01/18 10:30 APTT 19.9 Seconds (25.6-37.1) L 07/01/18 10:30 pO2 62 mm/Hg (30-55) H 07/01/18 10:37 VBG pH 7.55 (7.32-7.43) H 07/01/18 10:37 VBG pCO2 26 mmHg (40-60) L 07/01/18 10:37 VBG HCO3 25.7 mmol/L 07/01/18 10:37 VBG Total CO2 23.5 mmol/L (22-28) 07/01/18 10:37 VBG O2 Sat (Calc) 98.6 % (40-65) H 07/01/18 10:37 VBG Base Excess 1.1 mmol/L (0.0-2.0) 07/01/18 10:37 VBG Potassium 3.9 mmol/L (3.6-5.2) 07/01/18 10:37 Sodium 132.0 mmol/L (132-148) 07/01/18 10:37 Chloride 105.0 mmol/L (98-107) 07/01/18 10:37 Glucose 89 mg/dL (75-110) 07/01/18 10:37 Lactate 1.4 mmol/L (0.7-2.1) 07/01/18 10:37 FiO2 21.0 % 07/01/18 10:37 Sodium 135 mmol/l (132-148) 07/04/18 05:05 Potassium 4.2 MMOL/L (3.6-5.0) 07/04/18 05:05 Chloride 101 mmol/L (98-107) 07/04/18 05:05 Carbon Dioxide 28 mmol/L (22-30) 07/04/18 05:05 Anion Gap 10 (10-20) 07/04/18 05:05 BUN 19 mg/dl (9-20) 07/04/18 05:05 Creatinine 0.7 mg/dl (0.8-1.5) L 07/04/18 05:05 Est GFR ( Amer) > 60 07/04/18 05:05 Est GFR (Non-Af Amer) > 60 07/04/18 05:05 POC Glucose (mg/dL) 102 mg/dL (65-110) 07/01/18 10:17 Random Glucose 132 mg/dL (75-110) H 07/04/18 05:05 Calcium 8.7 mg/dL (8.4-10.2) 07/04/18 05:05 Phosphorus 2.6 mg/dl (2.5-4.5) 07/01/18 09:48 Magnesium 1.8 MG/DL (1.6-2.3) 07/01/18 09:48 Total Bilirubin 0.6 mg/dl (0.2-1.3) 07/01/18 10:30 AST 55 U/L (17-59) 07/01/18 10:30 ALT 59 U/L (21-72) 07/01/18 10:30 Alkaline Phosphatase 73 U/L (38-126) 07/02/18 07:30 Troponin I 0.0310 ng/mL (0.00-0.120) 07/01/18 09:48 NT-Pro-B Natriuret Pep 179 pg/ml (0-900) 07/01/18 09:48 Total Protein 5.4 G/DL (6.3-8.2) L 07/01/18 10:30 Albumin 3.1 g/dL (3.5-5.0) L 07/01/18 10:30 Globulin 2.3 gm/dL (2.2-3.9) 07/01/18 10:30 Albumin/Globulin Ratio 1.3 (1.0-2.1) 07/01/18 10:30 Procalcitonin 0.55 NG/ML (0.19-0.49) H 07/02/18 15:00 Venous Blood Potassium 3.9 mmol/L (3.6-5.2) 07/01/18 10:37 Urine Color Yellow (YELLOW) 07/02/18 10:20 Urine Clarity Clear (Clear) 07/02/18 10:20 Urine pH 6.0 (5.0-8.0) 07/02/18 10:20 Ur Specific [place] 1.023 (1.003-1.030) 07/02/18 10:20 Urine Protein Negative mg/dL (NEGATIVE) 07/02/18 10:20 Urine Glucose (UA) Neg mg/dL (NEGATIVE) 07/02/18 10:20 Urine Ketones Negative mg/dL (NEGATIVE) 07/02/18 10:20 Urine Blood Negative (NEGATIVE) 07/02/18 10:20 Urine Nitrate Negative (NEGATIVE) 07/02/18 10:20 Urine Bilirubin Negative (NEGATIVE) 07/02/18 10:20 Urine Urobilinogen 0.2-1.0 mg/dL (0.2-1.0) 07/02/18 10:20 Ur Leukocyte Esterase Neg Mian/uL (Negative) 07/02/18 10:20 Urine RBC (Auto) 2 /hpf (0-3) 07/02/18 10:20 Urine Microscopic WBC < 1 /hpf (0-5) 07/02/18 10:20 HSV (DFA) TNP 07/04/18 10:56 Ur L.pneumophila Ag Negative (NEGATIVE) 07/02/18 07:45 VZV Culture TNP 07/04/18 10:56 Discharge Exam - Head Exam Head Exam: NORMAL INSPECTION Discharge Plan - Discharge Medications Prescriptions: Vancomycin 1gm in NS 250ml [Vancomycin 1gm] 1 gm IVPB Q12 #14 bag - Follow Up Plan Condition: FAIR Disposition: REHAB FACILITY/REHAB UNIT Instructions: Sepsis, Adult (DC), Exacerbation of COPD (DC) Additional Instructions: [facility] [place] [facility] Referrals: Reginald Rondon MD [Staff Provider] - Kareem Son MD [Staff Provider] -
[2018-07-05 15:50] VITALS: BP 132/76; PULSE 72; RESP 20; TEMP 98
--- NOTE | 2018-07-06 14:58 | PQF ---
PROVIDER RESPONSE TEXT: Sepsis Ruled out REVIEWER QUERY TEXT: Conflicting Documentation Clarification Please clarify if in agreement with the diagnosis of Sepsis which is listed in the ER record and ID p rogress note of 07/04:Please document if the condition is: -- Confirmed and current -- Confirmed, treated and resolved -- Ruled out -- Other, please specify WBC: 36.0->40.8->26.3->16.0--5 Band : H and P: includes:WBC 36,000 Pt on Steroid Pulse: 92->72->74->80->97->80->92 Respiratory rate within the norms Afebrile ER: Appears: Positive for: In Acute Distress (mild) --Respiratory: Positive for: Wheezing (expiratory bilaterally), Respiratory Distress (mild 1250: with several visits and failed outpt. therapy.Will need further workup .Elevated wbc likely fro m infection and steroids. Clinical Impression: COPD exacerbation, Pneumonia, Dehydration, Sepsis ? H and P:Hx Emphysema: Yes -- w chronic medical conditions including ILD, CAD with cardiac Stent, R/A, also extensive Hx of admissions to hospital due to COPD Exacerbation--Chest CT: Limited study 2nd to poor venous access, chronic ILD unchanged compared to 05/26/18.-WBC 36,000 Pt on Steroid (1) COPD exacerbation Status: Acute Priority: High (2) ILD (interstitial lung disease) Status: Chronic Priority: High (3) Leukocytosis Status: Acute Priority: High (4) CAD (coronary artery disease) Status: Chronic Priority: Medium (5) RA (rheumatoid arthritis) Status: Chronic Priority: Medium (6) Hypercholesteremia Status: Chronic Priority: Medium (7) BPH (benign prostatic hyperplasia) Status: Chronic Priority: Medium - C-S, U C-S neg, MRSA Screen, LAP, continue Cefepime, Duoneb, Oxycodone, ASA and rest of tx. ID consult appreciated. 07/04 ID: 07/04: ID: (1) Shingles outbreak Status: Acute (2) Shingles rash Status: Acute (3) Thigh pearson gles Status: Acute (4) COPD exacerbation Status: Acute (5) Dehydration Status: Acute (6) Leukocytosis Status: Acute (7) Pneumonia Status: Acute (8) Sepsis Status: Acute (9) MRSA (methicillin resistant staph aureus) cu lture positive Status: Acute ---cont vanco acyclovir The patient's Clinical Indicators include: -- Query created by: Hayley Lange on 07/05/2018 9:14 AM Electronically signed by: Kareem Son MD 07/06/2018 2:55 PM
== END 2018-07-05 19:10 | DRG 178 ==
LOC: H.ER 08:34 → H.ERHOLD 12:56 → H.TEL 14:51
PROVIDERS: ADMIT Internal Medicine Pulmonary Disease; ATTEND Internal Medicine Pulmonary Disease
DX: J15.212 Pneumonia due to Methicillin resistant Staphylococcus aureus (principal); J84.9 Interstitial pulmonary disease, unspecified; E86.0 Dehydration; J43.9 Emphysema, unspecified; B02.9 Zoster without complications; I25.10 Atherosclerotic heart disease of native coronary artery without angina pectoris; M06.9 Rheumatoid arthritis, unspecified; Z79.82 Long term (current) use of aspirin; Z87.891 Personal history of nicotine dependence; Z95.5 Presence of coronary angioplasty implant and graft; N40.0 Benign prostatic hyperplasia without lower urinary tract symptoms; M81.0 Age-related osteoporosis without current pathological fracture; E78.00 Pure hypercholesterolemia, unspecified; I25.2 Old myocardial infarction; F32.9 Major depressive disorder, single episode, unspecified; F41.9 Anxiety disorder, unspecified; K29.70 Gastritis, unspecified, without bleeding; I10 Essential (primary) hypertension; G47.30 Sleep apnea, unspecified

== ENCOUNTER 2018-07-05 13:05 | Inpatient (IN) | payer OTHER, MEDICAID ==
[2018-07-05] MEDS ORDERED: Albuterol HFA 90 mcg/actuation (8 g) INH PRN (20:37)
[2018-07-05] MEDS: Albuterol-Ipratrop 3 mg / 0.5 (3 ml) UD INH PRN (21:19)
[2018-07-05] MEDS: MethylPREDNISolone 40 mg Vial IVP SCH (21:33)
[2018-07-05] MEDS ORDERED: methylPREDNISolone 40 MG in Sodium Chloride 0.9% 50 ML IVPB SCH (22:00)
[2018-07-05] MEDS: Acetylcysteine 10% 4 ML IH SCH (23:41)
[2018-07-06 00:01] VITALS: BMI 31.2
[2018-07-06] MEDS: MethylPREDNISolone 40 mg Vial IVP SCH ×4 (04:34→21:24)
[2018-07-06] MEDS: Albuterol-Ipratrop 3 mg / 0.5 (3 ml) UD INH PRN ×3 (07:30→23:05)
[2018-07-06] MEDS: Acetylcysteine 10% 4 ML IH SCH ×3 (07:31→23:05)
[2018-07-06] MEDS: guaiFENesin-DM 600-30 mg ER Tab PO SCH ×2 (09:23→17:31)
[2018-07-06] MEDS: Pantoprazole 40 mg EC Tab PO SCH (09:23)
--- NOTE | 2018-07-06 13:58 | CP.PCM.HP ---
History of Present Illness - History of Present Illness History of Present Illness: Pt transferred from Telemetry [facility], to TCU unit on 07/05/18 to complete course of Abx Tx for MRSA PNA Present on Admission - Present on Admission Any Indicators Present on Admission: No Review of Systems - Constitutional Constitutional: Other (negative) - EENT Eyes: Requires Corrective Lenses Ears: Other (negative) Nose/Mouth/Throat: Other (negative) - Cardiovascular Cardiovascular: Other (negative) - Respiratory Respiratory: Cough, Dyspnea, Chest Congestion - Gastrointestinal Gastrointestinal: Other (negative) - Genitourinary Genitourinary: Other (negative) - Musculoskeletal Musculoskeletal: Arthralgias - Integumentary Integumentary: Other (negative) - Neurological Neurological: Other (negative) - Psychiatric Psychiatric: Abnormal Sleep Pattern - Endocrine Endocrine: Other (negative) - Hematologic/Lymphatic Hematologic: Other (negative) Past Patient History - Infectious Disease Hx of Infectious Diseases: None - Past Medical History & Family History Past Medical History?: Yes Pertinent Family History: Father and Brother: HTN, ID - Past Social History Smoking Status: Former Smoker Alcohol: None Drugs: Denies Home Situation {Lives}: Alone - CARDIAC Hx Cardiac Disorders: Yes Hx Hypercholesterolemia: Yes Hx Hypertension: Yes - PULMONARY Hx Respiratory Disorders: Yes Hx Asthma: Yes Hx Bronchitis: Yes Hx Chronic Obstructive Pulmonary Disease (COPD): Yes Hx Emphysema: Yes Hx Pneumonia: Yes Hx Sleep Apnea: Yes - NEUROLOGICAL Hx Neurological Disorder: No - HEENT Hx HEENT Problems: Yes (cataracts) - RENAL Hx Chronic Kidney Disease: No - ENDOCRINE/METABOLIC Hx Endocrine Disorders: No Hx Diabetes Mellitus Type 2: No - HEMATOLOGICAL/ONCOLOGICAL Hx Blood Disorders: No Hx AIDS: No Hx Anemia: No Hx Human Immunodeficiency Virus (HIV): No - INTEGUMENTARY Hx Dermatological Problems: No - MUSCULOSKELETAL/RHEUMATOLOGICAL Hx Musculoskeletal Disorders: Yes Hx Arthritis: Yes Hx Falls: No Hx Osteoporosis: Yes Hx Rheumatoid Arthritis: Yes - GASTROINTESTINAL Hx Gastrointestinal Disorders: Yes Hx Diverticulitis: Yes Hx Gastritis: Yes - GENITOURINARY/GYNECOLOGICAL Hx Genitourinary Disorders: Yes Hx Prostate Problems: Yes - PSYCHIATRIC Hx Psychophysiologic Disorder: Yes Hx Anxiety: Yes Hx Depression: Yes - SURGICAL HISTORY Hx Surgeries: Yes Hx Coronary Stent: Yes (x 2 after ID 2 yrs ago) - ANESTHESIA Hx Anesthesia: Yes Hx Anesthesia Reactions: No Hx Malignant Hyperthermia: No Meds Allergies/Adverse Reactions: Allergies Allergy/AdvReac Type Severity Reaction Status Date / Time No Known Allergies Allergy Verified 07/01/18 08:49 Physical Exam - Constitutional Appears: No Acute Distress - Head Exam Head Exam: NORMAL INSPECTION - Eye Exam Eye Exam: PERRL - ENT Exam ENT Exam: Normal Exam - Neck Exam Neck exam: Positive for: Normal Inspection - Respiratory Exam Respiratory Exam: Decreased Breath Sounds (at bases), Rhonchi (scattered) - Cardiovascular Exam Cardiovascular Exam: REGULAR RHYTHM - GI/Abdominal Exam GI & Abdominal Exam: Normal Bowel Sounds, Soft - Extremities Exam Extremities exam: Positive for: normal inspection - Back Exam Additional comments: R Gluteal blister with erythematous base - Neurological Exam Neurological exam: Alert, Oriented x3 Additional comments: No motor/sensory deficit. - Psychiatric Exam Psychiatric exam: Normal Mood - Skin Skin Exam: Warm Results - Vital Signs Recent Vital Signs: Last Vital Signs Temp 98.6 F 07/06/18 08:40 Pulse 83 07/06/18 09:38 Resp 20 07/06/18 08:40 BP 116/69 07/06/18 09:38 Pulse Ox 95 07/06/18 09:38 reviewed J.P. Assessment & Plan (1) MRSA pneumonia Status: Resolved (2) COPD exacerbation Status: Acute Priority: Medium (3) Herpes zoster Status: Acute Priority: High (4) Hypercholesteremia Status: Chronic Priority: Medium (5) ILD (interstitial lung disease) Status: Chronic Priority: High (6) RA (rheumatoid arthritis) Status: Chronic Priority: Medium - Assessment and Plan (Free Text) Plan: Continue Vanco, Solu-Medrol, Duoneb, Zorivax, Protonic, Plaquenil, Promethazine with Co, Folic acid and rest of Tx. - Date & Time Date: 07/06/18 Time: 14:15
[2018-07-06] MEDS: Promethazine/Cod 6.25mg-10mg/5ml Syr UD PO PRN (19:55)
[2018-07-07] MEDS: MethylPREDNISolone 40 mg Vial IVP SCH ×4 (04:37→22:00)
[2018-07-07] MEDS: Promethazine/Cod 6.25mg-10mg/5ml Syr UD PO PRN (04:42)
[2018-07-07] MEDS: Albuterol-Ipratrop 3 mg / 0.5 (3 ml) UD INH PRN ×3 (07:30→23:29)
[2018-07-07] MEDS: Acetylcysteine 10% 4 ML IH SCH ×2 (07:31→23:29)
[2018-07-07] MEDS: guaiFENesin-DM 600-30 mg ER Tab PO SCH ×2 (08:43→17:19)
[2018-07-07] MEDS: Pantoprazole 40 mg EC Tab PO SCH (08:44)
[2018-07-07] MEDS ORDERED: Benzocaine/Menthol (Cepacol) Lozenge PO PRN (14:09)
--- NOTE | 2018-07-07 14:34 | CP.PCM.PN ---
Subjective - Date & Time of Evaluation Date of Evaluation: 07/07/18 Time of Evaluation: 13:00 - Subjective Subjective: F/U MRSA PNA Cough with yellowish phleghm and chest congestion improved. Objective - Vital Signs/Intake and Output Vital Signs (last 24 hours): Temp Pulse Resp BP Pulse Ox 98.3 F 88 18 154/85 H 97 07/07/18 08:57 07/07/18 08:57 07/07/18 08:57 07/07/18 08:57 07/07/18 08:57 - Medications Medications: Current Medications Acetylcysteine (Mucomyst 10% 4ml) 2 ml IH RQ8 [facility] Last Admin: 07/07/18 07:31 Dose: 2 ml Acyclovir (Zovirax) 800 mg PO 5XD [facility]; Protocol Last Admin: 07/07/18 08:43 Dose: 800 mg Albuterol (Ventolin Hfa 90 Mcg/Actuation (8 G)) 2 puff INH RQ6 PRN PRN Reason: Shortness of Breath Last Admin: 07/07/18 14:12 Dose: 1 inhaler Albuterol/Ipratropium (Duoneb 3 Mg/0.5 Mg (3 Ml) Ud) 3 ml INH Q8 PRN PRN Reason: Shortness of Breath Last Admin: 07/07/18 07:30 Dose: 3 ml Aspirin (Ecotrin) 81 mg PO DAILY [facility] Last Admin: 07/07/18 08:45 Dose: 81 mg Atorvastatin Calcium (Lipitor) 40 mg PO HS [facility] Last Admin: 07/06/18 21:21 Dose: 40 mg Benzocaine/Menthol (Cepacol Sore Throat) 1 teagan PO Q4 PRN PRN Reason: Sore Throat Capsaicin (Trixaicin Cream) 1 applic TOP Q6 PRN PRN Reason: Rash Docusate Sodium (Colace) 100 mg PO Q12 PRN PRN Reason: Constipation Folic Acid (Folic Acid) 1 mg PO DAILY [facility] Last Admin: 07/07/18 08:45 Dose: 1 mg Guaifenesin/Dextromethorphan (Mucinex-Dm 600-30 Mg) 1 tab PO BID [facility] Last Admin: 07/07/18 08:43 Dose: 1 tab Hydroxychloroquine Sulfate (Plaquenil) 200 mg PO Q12 [facility]; Protocol Last Admin: 07/07/18 08:44 Dose: 200 mg Vancomycin HCl 1 gm/ Sodium (Chloride) 250 mls @ 166.667 mls/hr IVPB Q12 [facility]; Protocol Last Admin: 07/07/18 08:43 Dose: 166.667 mls/hr Ibuprofen (Motrin Tab) 800 mg PO Q6 PRN PRN Reason: Pain, moderate (4-7) Lisinopril (Zestril) 10 mg PO DAILY [facility] Last Admin: 07/07/18 08:44 Dose: 10 mg Methylprednisolone (Solu-Medrol) 40 mg IVP Q6 [facility] Last Admin: 07/07/18 11:27 Dose: 40 mg Pantoprazole Sodium (Protonix Ec Tab) 40 mg PO DAILY [facility] Last Admin: 07/07/18 08:44 Dose: 40 mg Promethazine HCl/Codeine (Phenergan/Codeine Oral Syrup) 5 ml PO Q6 PRN PRN Reason: Cough Last Admin: 07/07/18 04:42 Dose: 5 ml Tamsulosin HCl (Flomax) 0.4 mg PO HS [facility] Last Admin: 07/06/18 21:22 Dose: 0.4 mg Ticagrelor (Brilinta) 60 mg PO BID [facility] Last Admin: 07/07/18 08:43 Dose: 60 mg Zolpidem Tartrate (Ambien) 10 mg PO HS PRN PRN Reason: Sleep Last Admin: 07/06/18 21:20 Dose: 10 mg - Constitutional Appears: No Acute Distress - Head Exam Head Exam: NORMAL INSPECTION - Eye Exam Eye Exam: PERRL - ENT Exam ENT Exam: Normal Exam - Neck Exam Neck Exam: Normal Inspection - Respiratory Exam Respiratory Exam: Decreased Breath Sounds (at bases), Rhonchi (scattered), Wheezes (scattered) Additional comments: Crackles L base - Cardiovascular Exam Cardiovascular Exam: REGULAR RHYTHM - GI/Abdominal Exam GI & Abdominal Exam: Soft, Normal Bowel Sounds - Extremities Exam Extremities Exam: Normal Inspection - Back Exam Additional comments: R gluteal blister with erytermatous base - Neurological Exam Neurological Exam: Alert, Oriented x3. absent: Motor Sensory Deficit - Psychiatric Exam Psychiatric exam: Normal Mood - Skin Skin Exam: Warm Assessment and Plan (1) MRSA pneumonia Status: Resolved (2) COPD exacerbation Status: Acute (3) Herpes zoster Status: Acute (4) CAD (coronary artery disease) Status: Chronic (5) Hypercholesteremia Status: Chronic (6) ILD (interstitial lung disease) Status: Chronic (7) RA (rheumatoid arthritis) Status: Chronic (8) BPH (benign prostatic hyperplasia) Status: Acute - Assessment and Plan (Free Text) Plan: Continue Vanco, Duoneb, Phenergan with Co, Zorivax, Brillinta, Folic Acid and rest of Tx.
[2018-07-08] MEDS: MethylPREDNISolone 40 mg Vial IVP SCH ×4 (04:35→21:12)
[2018-07-08] MEDS: Albuterol-Ipratrop 3 mg / 0.5 (3 ml) UD INH PRN ×5 (07:11→23:46)
[2018-07-08] MEDS: Acetylcysteine 10% 4 ML IH SCH ×5 (07:11→23:46)
[2018-07-08] MEDS: guaiFENesin-DM 600-30 mg ER Tab PO SCH ×2 (08:44→16:14)
[2018-07-08] MEDS: Pantoprazole 40 mg EC Tab PO SCH (08:50)
--- NOTE | 2018-07-08 14:26 | CP.PCM.PN ---
Subjective - Date & Time of Evaluation Date of Evaluation: 07/08/18 - Subjective Subjective: F/U MRSA PNA Breathing better, cough with scanty amount of Yellowish phlegms, able to ambulate in the caldera, c/o of chest congestion. Objective - Vital Signs/Intake and Output Vital Signs (last 24 hours): Temp Pulse Resp BP Pulse Ox 97.7 F 74 18 120/64 95 07/08/18 07:59 07/08/18 08:42 07/08/18 07:59 07/08/18 08:42 07/08/18 07:59 - Medications Medications: Current Medications Acetylcysteine (Mucomyst 10% 4ml) 2 ml IH RQ4 [facility], [facility] Last Admin: 07/08/18 12:40 Dose: 2 ml Acyclovir (Zovirax) 800 mg PO 5XD [facility], [facility]; Protocol Last Admin: 07/08/18 12:12 Dose: 800 mg Albuterol (Ventolin Hfa 90 Mcg/Actuation (8 G)) 2 puff INH RQ6 PRN PRN Reason: Shortness of Breath Last Admin: 07/07/18 14:12 Dose: 1 inhaler Albuterol/Ipratropium (Duoneb 3 Mg/0.5 Mg (3 Ml) Ud) 3 ml INH Q8 PRN PRN Reason: Shortness of Breath Last Admin: 07/08/18 12:40 Dose: 3 ml Aspirin (Ecotrin) 81 mg PO DAILY [facility] Last Admin: 07/08/18 08:43 Dose: 81 mg Atorvastatin Calcium (Lipitor) 40 mg PO HS [facility] Last Admin: 07/07/18 22:01 Dose: 40 mg Benzocaine/Menthol (Cepacol Sore Throat) 1 teagan PO Q4 PRN PRN Reason: Sore Throat Capsaicin (Trixaicin Cream) 1 applic TOP Q6 PRN PRN Reason: Rash Docusate Sodium (Colace) 100 mg PO Q12 PRN PRN Reason: Constipation Folic Acid (Folic Acid) 1 mg PO DAILY [facility] Last Admin: 07/08/18 08:44 Dose: 1 mg Guaifenesin/Dextromethorphan (Mucinex-Dm 600-30 Mg) 1 tab PO BID [facility] Last Admin: 07/08/18 08:44 Dose: 1 tab Hydroxychloroquine Sulfate (Plaquenil) 200 mg PO Q12 [facility]; Protocol Last Admin: 07/08/18 08:43 Dose: 200 mg Vancomycin HCl 1 gm/ Sodium (Chloride) 250 mls @ 166.667 mls/hr IVPB Q12 [facility]; Protocol Last Admin: 07/08/18 08:42 Dose: 166.667 mls/hr Ibuprofen (Motrin Tab) 800 mg PO Q6 PRN PRN Reason: Pain, moderate (4-7) Lisinopril (Zestril) 10 mg PO DAILY [facility] Last Admin: 07/08/18 08:42 Dose: 10 mg Methylprednisolone (Solu-Medrol) 40 mg IVP Q6 [facility] Last Admin: 07/08/18 09:30 Dose: 40 mg Pantoprazole Sodium (Protonix Ec Tab) 40 mg PO DAILY [facility] Last Admin: 07/08/18 08:50 Dose: 40 mg Promethazine HCl/Codeine (Phenergan/Codeine Oral Syrup) 5 ml PO Q6 PRN PRN Reason: Cough Last Admin: 07/07/18 04:42 Dose: 5 ml Tamsulosin HCl (Flomax) 0.4 mg PO HS [facility] Last Admin: 07/07/18 22:01 Dose: 0.4 mg Ticagrelor (Brilinta) 60 mg PO BID [facility] Last Admin: 07/08/18 08:43 Dose: 60 mg Zolpidem Tartrate (Ambien) 10 mg PO HS PRN PRN Reason: Sleep Last Admin: 07/07/18 22:49 Dose: 10 mg - Constitutional Appears: No Acute Distress - Head Exam Head Exam: NORMAL INSPECTION - Eye Exam Eye Exam: PERRL - ENT Exam ENT Exam: Normal Exam - Respiratory Exam Respiratory Exam: Decreased Breath Sounds (b/l), Rhonchi (b/l) - Cardiovascular Exam Cardiovascular Exam: REGULAR RHYTHM - GI/Abdominal Exam GI & Abdominal Exam: Soft, Normal Bowel Sounds - Extremities Exam Extremities Exam: Normal Inspection - Back Exam Additional comments: R gluteal blister with erythematous base. - Neurological Exam Neurological Exam: Alert, Oriented x3. absent: Motor Sensory Deficit - Psychiatric Exam Psychiatric exam: Normal Mood - Skin Skin Exam: Warm Additional comments: Ecchymosis Assessment and Plan (1) MRSA pneumonia Status: Resolved (2) COPD exacerbation Status: Acute (3) Herpes zoster Status: Acute (4) CAD (coronary artery disease) Status: Chronic (5) Hypercholesteremia Status: Chronic (6) ILD (interstitial lung disease) Status: Chronic (7) RA (rheumatoid arthritis) Status: Chronic (8) BPH (benign prostatic hyperplasia) Status: Acute - Assessment and Plan (Free Text) Plan: Continue Vanco, Duoneb, increased Mucomyst to 4 hrs, Mucinex, Solu-Medrol, Zorivax and rest of Tx.
[2018-07-08] MEDS: Promethazine/Cod 6.25mg-10mg/5ml Syr UD PO PRN (21:18)
[2018-07-09] MEDS: MethylPREDNISolone 40 mg Vial IVP SCH ×4 (04:44→21:47)
[2018-07-09] MEDS: Acetylcysteine 10% 4 ML IH SCH ×6 (04:58→23:58)
[2018-07-09] MEDS: Albuterol-Ipratrop 3 mg / 0.5 (3 ml) UD INH PRN ×6 (04:58→23:57)
[2018-07-09] MEDS: Pantoprazole 40 mg EC Tab PO SCH (09:01)
[2018-07-09] MEDS: guaiFENesin-DM 600-30 mg ER Tab PO SCH ×2 (09:02→16:57)
[2018-07-09] MEDS: Promethazine/Cod 6.25mg-10mg/5ml Syr UD PO PRN (11:18)
--- NOTE | 2018-07-09 13:01 | CP.PCM.PN ---
Subjective - Date & Time of Evaluation Date of Evaluation: 07/09/18 Time of Evaluation: 10:00 - Subjective Subjective: F/U COPD Ex./ PNA Cough with scanty amount to yellowish phlegms, chest congestion, no SOB, no GREEN Objective - Vital Signs/Intake and Output Vital Signs (last 24 hours): Temp Pulse Resp BP Pulse Ox 98.1 F 100 H 18 124/65 95 07/09/18 10:00 07/09/18 10:00 07/09/18 10:00 07/09/18 10:00 07/09/18 10:00 - Medications Medications: Current Medications Acetylcysteine (Mucomyst 10% 4ml) 2 ml IH RQ4 [facility] Last Admin: 07/09/18 11:01 Dose: 2 ml Acyclovir (Zovirax) 800 mg PO 5XD [facility]; Protocol Last Admin: 07/09/18 12:46 Dose: 800 mg Albuterol (Ventolin Hfa 90 Mcg/Actuation (8 G)) 2 puff INH RQ6 PRN PRN Reason: Shortness of Breath Last Admin: 07/07/18 14:12 Dose: 1 inhaler Albuterol/Ipratropium (Duoneb 3 Mg/0.5 Mg (3 Ml) Ud) 3 ml INH Q8 PRN PRN Reason: Shortness of Breath Last Admin: 07/09/18 11:00 Dose: 3 ml Aspirin (Ecotrin) 81 mg PO DAILY [facility] Last Admin: 07/09/18 09:04 Dose: 81 mg Atorvastatin Calcium (Lipitor) 40 mg PO HS [facility] Last Admin: 07/08/18 21:20 Dose: 40 mg Benzocaine/Menthol (Cepacol Sore Throat) 1 teagan PO Q4 PRN PRN Reason: Sore Throat Capsaicin (Trixaicin Cream) 1 applic TOP Q6 PRN PRN Reason: Rash Docusate Sodium (Colace) 100 mg PO Q12 PRN PRN Reason: Constipation Folic Acid (Folic Acid) 1 mg PO DAILY [facility] Last Admin: 07/09/18 09:05 Dose: 1 mg Guaifenesin/Dextromethorphan (Mucinex-Dm 600-30 Mg) 1 tab PO BID [facility] Last Admin: 07/09/18 09:02 Dose: 1 tab Vancomycin HCl 1 gm/ Sodium (Chloride) 250 mls @ 166.667 mls/hr IVPB Q12 [facility]; Protocol Last Admin: 07/09/18 09:06 Dose: 166.667 mls/hr Ibuprofen (Motrin Tab) 800 mg PO Q6 PRN PRN Reason: Pain, moderate (4-7) Lisinopril (Zestril) 10 mg PO DAILY [facility] Last Admin: 07/09/18 09:04 Dose: 10 mg Methylprednisolone (Solu-Medrol) 40 mg IVP Q6 [facility] Last Admin: 07/09/18 09:03 Dose: 40 mg Pantoprazole Sodium (Protonix Ec Tab) 40 mg PO DAILY [facility] Last Admin: 07/09/18 09:01 Dose: 40 mg Promethazine HCl/Codeine (Phenergan/Codeine Oral Syrup) 5 ml PO Q6 PRN PRN Reason: Cough Last Admin: 07/09/18 11:18 Dose: 5 ml Tamsulosin HCl (Flomax) 0.4 mg PO HS [facility] Last Admin: 07/08/18 21:13 Dose: 0.4 mg Ticagrelor (Brilinta) 60 mg PO BID [facility] Last Admin: 07/09/18 09:05 Dose: 60 mg Zolpidem Tartrate (Ambien) 10 mg PO HS PRN PRN Reason: Sleep Last Admin: 07/08/18 21:11 Dose: 10 mg - Constitutional Appears: No Acute Distress - Head Exam Head Exam: NORMAL INSPECTION - Eye Exam Eye Exam: PERRL - ENT Exam ENT Exam: Normal Exam - Neck Exam Neck Exam: Normal Inspection - Respiratory Exam Respiratory Exam: Decreased Breath Sounds (at bases), Rhonchi (scattered), Wh eezes (scattered) Additional comments: Dry crackles L base - Cardiovascular Exam Cardiovascular Exam: REGULAR RHYTHM - GI/Abdominal Exam GI & Abdominal Exam: Soft, Normal Bowel Sounds - Extremities Exam Extremities Exam: Normal Inspection - Back Exam Additional comments: redness on buttock area - Neurological Exam Neurological Exam: Alert, Awake, Oriented x3. absent: Motor Sensory Deficit - Psychiatric Exam Psychiatric exam: Normal Mood - Skin Skin Exam: Warm Assessment and Plan (1) MRSA pneumonia Status: Resolved (2) COPD exacerbation Status: Acute (3) Herpes zoster Status: Acute (4) CAD (coronary artery disease) Status: Chronic (5) Hypercholesteremia Status: Chronic (6) ILD (interstitial lung disease) Status: Chronic (7) RA (rheumatoid arthritis) Status: Chronic (8) BPH (benign prostatic hyperplasia) Status: Acute - Assessment and Plan (Free Text) Plan: Continue Vanco, Solu-Medrol, Brillinta, Duoneb, Mucinex, Phenergan with Co, Zorivax and rest of tx. F/U CXR PA& Lateral. PMC, CBC
[2018-07-10] MEDS: Acetylcysteine 10% 4 ML IH SCH ×6 (04:01→23:34)
[2018-07-10] MEDS: MethylPREDNISolone 40 mg Vial IVP SCH ×3 (04:55→16:36)
[2018-07-10 07:06] LABS: BASO % 0.1 % (0.0-2.0); HEMOGLOBIN 10.2 g/dL (12.0-18.0); LYMPH # 0.1 K/uL (1.0-4.3); LYMPH % 1.2 % (20.0-40.0); MEAN CELL VOLUME 88.3 fl (80.0-94.0); MEAN CORPUSCULAR HGB CONC 32.9 g/dL (33.0-37.0); MONO # 0.5 K/uL (0.0-0.8); MONO % 4.2 % (0.0-10.0); NEUT # 11.5 K/uL (1.8-7.0); NEUT % 94.5 % (50.0-75.0); NRBC % 0.4 % (0.0-0.0); PLATELET COUNT 193 K/uL (130-400); RED CELL DISTRIBUTION WIDTH 17.7 % (11.5-14.5); WHITE BLOOD COUNT 12.2 K/uL (4.8-10.8)
[2018-07-10 07:18] LABS: ALB/GLOB RATIO 1.3 (1.0-2.1); ALBUMIN 2.8 g/dL (3.5-5.0); ALT/SGPT 50 U/L (21-72); AST/SGOT 30 U/L (17-59); BLOOD UREA NITROGEN 24 mg/dl (9-20); CALCIUM 8.1 mg/dL (8.4-10.2); GFR NON-AFRICAN AMERICAN > 60
[2018-07-10] MEDS: Albuterol-Ipratrop 3 mg / 0.5 (3 ml) UD INH PRN ×3 (07:22→23:34)
--- NOTE | 2018-07-10 08:31 | RAD ---
Date of service: 07/09/2018 HISTORY: PNA COMPARISON: Portable chest 07/01/2018 9:31 a.m.. TECHNIQUE: Chest PA and lateral views FINDINGS: LUNGS: No acute alveolar disease is appreciated bilaterally. Mild pulmonary fibrotic changes are reiterated and hyperinflation related COPD. This is better appreciated in prior chest CT 07/01/2018. PLEURA: No significant pleural effusion identified. No pneumothorax apparent. CARDIOVASCULAR: Calcific atherosclerotic changes are seen related to the thoracic aorta. Normal cardiac size. No pulmonary vascular congestion. OSSEOUS STRUCTURES: No significant abnormalities. VISUALIZED UPPER ABDOMEN: Normal. OTHER FINDINGS: None. IMPRESSION: No definite acute cardiopulmonary disease appreciable at this time. COPD changes are reiterated.
[2018-07-10] MEDS: guaiFENesin-DM 600-30 mg ER Tab PO SCH ×2 (09:58→16:38)
[2018-07-10] MEDS: Pantoprazole 40 mg EC Tab PO SCH (09:59)
[2018-07-10] MEDS: Promethazine/Cod 6.25mg-10mg/5ml Syr UD PO PRN ×2 (10:07→21:57)
[2018-07-10 11:06] LABS: ANISOCYTOSIS SLIGHT; HYPOCHROMIC SLIGHT; LYMPHOCYTE 1 % (20-50); MONOCYTE 3 % (0-10); NEUTROPHIL 96 % (42-75); PLATELET ESTIMATE NORMAL (NORMAL); TOTAL CELLS COUNTED 100
[2018-07-10 11:07] LABS: SCHISTOCYTES SLIGHT
[2018-07-10 11:08] LABS: TOXIC GRANULATION PRESENT
--- NOTE | 2018-07-10 14:25 | CP.PCM.PN ---
Subjective - Date & Time of Evaluation Date of Evaluation: 07/10/18 Time of Evaluation: 14:00 - Subjective Subjective: F/U COPD Exacerbation. PNA Breathing better, chest congestion, no SOB, no GREEN Objective - Vital Signs/Intake and Output Vital Signs (last 24 hours): Temp Pulse Resp BP Pulse Ox 97.5 F L 64 18 132/90 98 07/10/18 08:33 07/10/18 10:18 07/10/18 08:33 07/10/18 10:18 07/10/18 08:33 - Medications Medications: Current Medications Acetylcysteine (Mucomyst 10% 4ml) 2 ml IH RQ4 [facility] Last Admin: 07/10/18 11:08 Dose: Not Given Acyclovir (Zovirax) 800 mg PO 5XD [facility]; Protocol Last Admin: 07/10/18 12:36 Dose: 800 mg Albuterol (Ventolin Hfa 90 Mcg/Actuation (8 G)) 2 puff INH RQ6 PRN PRN Reason: Shortness of Breath Last Admin: 07/07/18 14:12 Dose: 1 inhaler Albuterol/Ipratropium (Duoneb 3 Mg/0.5 Mg (3 Ml) Ud) 3 ml INH RQ4 PRN PRN Reason: Shortness of Breath Alprazolam (Xanax) 0.5 mg PO BID [facility] Aspirin (Ecotrin) 81 mg PO DAILY [facility] Last Admin: 07/10/18 09:57 Dose: 81 mg Atorvastatin Calcium (Lipitor) 40 mg PO HS [facility] Last Admin: 07/09/18 21:48 Dose: 40 mg Benzocaine/Menthol (Cepacol Sore Throat) 1 teagan PO Q4 PRN PRN Reason: Sore Throat Capsaicin (Trixaicin Cream) 1 applic TOP Q6 PRN PRN Reason: Rash Docusate Sodium (Colace) 100 mg PO Q12 PRN PRN Reason: Constipation Folic Acid (Folic Acid) 1 mg PO DAILY [facility] Last Admin: 07/10/18 09:58 Dose: 1 mg Guaifenesin/Dextromethorphan (Mucinex-Dm 600-30 Mg) 1 tab PO BID [facility] Last Admin: 07/10/18 09:58 Dose: 1 tab Hydroxychloroquine Sulfate (Plaquenil) 200 mg PO DAILY [facility]; Protocol Stop: 07/15/18 23:59 Last Admin: 07/10/18 12:35 Dose: 200 mg Vancomycin HCl 1 gm/ Sodium (Chloride) 250 mls @ 166.667 mls/hr IVPB Q12 [facility]; Protocol Last Admin: 07/10/18 09:56 Dose: 166.667 mls/hr Ibuprofen (Motrin Tab) 800 mg PO Q6 PRN PRN Reason: Pain, moderate (4-7) Lisinopril (Zestril) 10 mg PO DAILY [facility] Last Admin: 07/10/18 10:18 Dose: 10 mg Methylprednisolone (Solu-Medrol) 40 mg IVP Q8 [facility] Pantoprazole Sodium (Protonix Ec Tab) 40 mg PO DAILY [facility] Last Admin: 07/10/18 09:59 Dose: 40 mg Promethazine HCl/Codeine (Phenergan/Codeine Oral Syrup) 5 ml PO Q6 PRN PRN Reason: Cough Last Admin: 07/10/18 10:07 Dose: 5 ml Tamsulosin HCl (Flomax) 0.4 mg PO HS [facility] Last Admin: 07/09/18 21:47 Dose: 0.4 mg Ticagrelor (Brilinta) 60 mg PO BID [facility] Last Admin: 07/10/18 09:57 Dose: 60 mg Zolpidem Tartrate (Ambien) 10 mg PO HS PRN PRN Reason: Sleep Last Admin: 07/09/18 22:54 Dose: 10 mg - Labs Labs: 07/10/18 05:50 07/10/18 05:50 - Constitutional Appears: No Acute Distress - Head Exam Head Exam: NORMOCEPHALIC - Eye Exam Eye Exam: PERRL - ENT Exam ENT Exam: Normal Exam - Neck Exam Neck Exam: Normal Inspection - Respiratory Exam Respiratory Exam: Decreased Breath Sounds (at bases), Rhonchi (scatteres), Wheezes (scattered) Additional comments: dry crackles L base - Cardiovascular Exam Cardiovascular Exam: REGULAR RHYTHM - GI/Abdominal Exam GI & Abdominal Exam: Soft, Normal Bowel Sounds - Extremities Exam Extremities Exam: Normal Inspection - Back Exam Additional comments: Rashes on buttock area - Neurological Exam Neurological Exam: Alert, CN II-XII Intact, Oriented x3. absent: Motor Sensory Deficit - Psychiatric Exam Psychiatric exam: Normal Affect, Normal Mood - Skin Skin Exam: Warm Assessment and Plan (1) MRSA pneumonia Status: Resolved (2) COPD exacerbation Status: Acute (3) Herpes zoster Status: Acute (4) CAD (coronary artery disease) Status: Chronic (5) Hypercholesteremia Status: Chronic (6) ILD (interstitial lung disease) Status: Chronic (7) RA (rheumatoid arthritis) Status: Chronic (8) BPH (benign prostatic hyperplasia) Status: Acute - Assessment and Plan (Free Text) Plan: taper Solu Medrol, continue Albuterol, Atrovent, Mucomyst and rest of Tx
[2018-07-10] MEDS ORDERED: methylPREDNISolone 40 MG in Sodium Chloride 0.9% 50 ML IVPB SCH (17:00)
[2018-07-11] MEDS: MethylPREDNISolone 40 mg Vial IVP SCH ×3 (00:34→17:09)
[2018-07-11] MEDS: Acetylcysteine 10% 4 ML IH SCH ×5 (04:47→19:18)
[2018-07-11] MEDS: Albuterol-Ipratrop 3 mg / 0.5 (3 ml) UD INH PRN ×4 (07:32→19:18)
[2018-07-11] MEDS: guaiFENesin-DM 600-30 mg ER Tab PO SCH ×2 (09:57→17:03)
[2018-07-11] MEDS: Pantoprazole 40 mg EC Tab PO SCH (09:58)
--- NOTE | 2018-07-11 17:07 | CP.PCM.PN ---
Subjective - Date & Time of Evaluation Date of Evaluation: 07/11/18 Time of Evaluation: 13:30 - Subjective Subjective: F/U COPD Exacerbation. PNA No SOB, occasional dry cough. Objective - Vital Signs/Intake and Output Vital Signs (last 24 hours): Temp Pulse Resp BP Pulse Ox 98.2 F 63 20 118/76 94 L 07/11/18 16:21 07/11/18 16:21 07/11/18 16:21 07/11/18 16:21 07/11/18 16:21 - Medications Medications: Current Medications Acetylcysteine (Mucomyst 10% 4ml) 2 ml IH RQ4 [facility] Last Admin: 07/11/18 16:00 Dose: 2 ml Albuterol (Ventolin Hfa 90 Mcg/Actuation (8 G)) 2 puff INH RQ6 PRN PRN Reason: Shortness of Breath Last Admin: 07/07/18 14:12 Dose: 1 inhaler Albuterol/Ipratropium (Duoneb 3 Mg/0.5 Mg (3 Ml) Ud) 3 ml INH RQ4 PRN PRN Reason: Shortness of Breath Last Admin: 07/11/18 16:00 Dose: 3 ml Alprazolam (Xanax) 0.5 mg PO BID [facility] Last Admin: 07/11/18 09:55 Dose: 0.5 mg Aspirin (Ecotrin) 81 mg PO DAILY [facility] Last Admin: 07/11/18 10:00 Dose: 81 mg Atorvastatin Calcium (Lipitor) 40 mg PO HS [facility] Last Admin: 07/10/18 21:52 Dose: 40 mg Benzocaine/Menthol (Cepacol Sore Throat) 1 teagan PO Q4 PRN PRN Reason: Sore Throat Capsaicin (Trixaicin Cream) 1 applic TOP Q6 PRN PRN Reason: Rash Docusate Sodium (Colace) 100 mg PO Q12 PRN PRN Reason: Constipation Folic Acid (Folic Acid) 1 mg PO DAILY [facility] Last Admin: 07/11/18 09:57 Dose: 1 mg Guaifenesin/Dextromethorphan (Mucinex-Dm 600-30 Mg) 1 tab PO BID [facility] Last Admin: 07/11/18 09:57 Dose: 1 tab Hydroxychloroquine Sulfate (Plaquenil) 200 mg PO DAILY [facility]; Protocol Stop: 05/30/19 23:59 Last Admin: 07/11/18 09:58 Dose: 200 mg Vancomycin HCl 1 gm/ Sodium (Chloride) 250 mls @ 166.667 mls/hr IVPB Q12 [facility]; Protocol Last Admin: 07/11/18 09:58 Dose: 166.667 mls/hr Ibuprofen (Motrin Tab) 800 mg PO Q6 PRN PRN Reason: Pain, moderate (4-7) Lisinopril (Zestril) 10 mg PO DAILY [facility] Last Admin: 07/11/18 09:59 Dose: 10 mg Methylprednisolone (Solu-Medrol) 40 mg IVP Q8 [facility] Last Admin: 07/11/18 10:00 Dose: 40 mg Pantoprazole Sodium (Protonix Ec Tab) 40 mg PO DAILY [facility] Last Admin: 07/11/18 09:58 Dose: 40 mg Tamsulosin HCl (Flomax) 0.4 mg PO HS [facility] Last Admin: 07/10/18 21:52 Dose: 0.4 mg Ticagrelor (Brilinta) 60 mg PO BID [facility] Last Admin: 07/11/18 09:56 Dose: 60 mg - Labs Labs: 07/10/18 05:50 07/10/18 05:50 - Constitutional Appears: No Acute Distress - Head Exam Head Exam: NORMAL INSPECTION - Eye Exam Eye Exam: PERRL - ENT Exam ENT Exam: Normal Exam - Neck Exam Neck Exam: Normal Inspection - Respiratory Exam Respiratory Exam: Decreased Breath Sounds (at bases), Rhonchi (scattered), Whee zes (scattered) Additional comments: Dry crackles L base - Cardiovascular Exam Cardiovascular Exam: REGULAR RHYTHM - GI/Abdominal Exam GI & Abdominal Exam: Soft, Normal Bowel Sounds - Extremities Exam Extremities Exam: Normal Inspection - Back Exam Additional comments: rashes on buttocks area - Neurological Exam Neurological Exam: Alert, Oriented x3. absent: Motor Sensory Deficit - Psychiatric Exam Psychiatric exam: Normal Mood - Skin Skin Exam: Warm Assessment and Plan (1) MRSA pneumonia Status: Resolved (2) COPD exacerbation Status: Acute (3) Herpes zoster Status: Acute (4) CAD (coronary artery disease) Status: Chronic (5) Hypercholesteremia Status: Chronic (6) ILD (interstitial lung disease) Status: Chronic (7) RA (rheumatoid arthritis) Status: Chronic (8) BPH (benign prostatic hyperplasia) Status: Acute - Assessment and Plan (Free Text) Plan: Continue Vanco, Solu-Medrol, Duoneb, Mucomyst and rest of Tx.
[2018-07-11] MEDS ORDERED: Promethazine/Cod 6.25mg-10mg/5ml Syr UD PO PRN (21:31)
[2018-07-12] MEDS: Acetylcysteine 10% 4 ML IH SCH ×7 (00:19→23:26)
[2018-07-12] MEDS: Albuterol-Ipratrop 3 mg / 0.5 (3 ml) UD INH PRN ×5 (00:19→23:25)
[2018-07-12] MEDS: MethylPREDNISolone 40 mg Vial IVP SCH ×3 (00:44→17:02)
[2018-07-12] MEDS: Pantoprazole 40 mg EC Tab PO SCH (08:20)
[2018-07-12] MEDS: guaiFENesin-DM 600-30 mg ER Tab PO SCH ×2 (08:21→17:03)
--- NOTE | 2018-07-12 15:00 | CP.PCM.PN ---
Subjective - Date & Time of Evaluation Date of Evaluation: 07/12/18 Time of Evaluation: 14:40 - Subjective Subjective: F/U COPD Exacerbation. PNA No SOB, no GREEN, occasional dry cough, chest congestion improved. Objective - Vital Signs/Intake and Output Vital Signs (last 24 hours): Temp Pulse Resp BP Pulse Ox 97.8 F 76 20 139/82 95 07/12/18 08:41 07/12/18 08:41 07/12/18 08:41 07/12/18 08:41 07/12/18 08:41 - Medications Medications: Current Medications Acetylcysteine (Mucomyst 10% 4ml) 2 ml IH RQ4 [facility] Last Admin: 07/12/18 12:57 Dose: 2 ml Albuterol (Ventolin Hfa 90 Mcg/Actuation (8 G)) 2 puff INH RQ6 PRN PRN Reason: Shortness of Breath Last Admin: 07/07/18 14:12 Dose: 1 inhaler Albuterol/Ipratropium (Duoneb 3 Mg/0.5 Mg (3 Ml) Ud) 3 ml INH RQ4 PRN PRN Reason: Shortness of Breath Last Admin: 07/12/18 12:57 Dose: 3 ml Alprazolam (Xanax) 0.5 mg PO BID [facility] Last Admin: 07/12/18 08:24 Dose: 0.5 mg Aspirin (Ecotrin) 81 mg PO DAILY [facility] Last Admin: 07/12/18 08:20 Dose: 81 mg Atorvastatin Calcium (Lipitor) 40 mg PO HS [facility] Last Admin: 07/11/18 22:12 Dose: 40 mg Benzocaine/Menthol (Cepacol Sore Throat) 1 teagan PO Q4 PRN PRN Reason: Sore Throat Capsaicin (Trixaicin Cream) 1 applic TOP Q6 PRN PRN Reason: Rash Docusate Sodium (Colace) 100 mg PO Q12 PRN PRN Reason: Constipation Last Admin: 07/12/18 08:20 Dose: 100 mg Folic Acid (Folic Acid) 1 mg PO DAILY [facility] Last Admin: 07/12/18 08:21 Dose: 1 mg Guaifenesin/Dextromethorphan (Mucinex-Dm 600-30 Mg) 1 tab PO BID [facility] Last Admin: 07/12/18 08:21 Dose: 1 tab Hydroxychloroquine Sulfate (Plaquenil) 200 mg PO DAILY [facility]; Protocol Stop: 07/15/18 23:59 Last Admin: 07/12/18 08:21 Dose: 200 mg Vancomycin HCl 1 gm/ Sodium (Chloride) 250 mls @ 166.667 mls/hr IVPB Q12 [facility]; Protocol Last Admin: 07/12/18 08:15 Dose: 166.667 mls/hr Ibuprofen (Motrin Tab) 800 mg PO Q6 PRN PRN Reason: Pain, moderate (4-7) Lisinopril (Zestril) 10 mg PO DAILY [facility] Last Admin: 07/12/18 08:22 Dose: 10 mg Methylprednisolone (Solu-Medrol) 40 mg IVP Q8 [facility] Last Admin: 07/12/18 08:20 Dose: 40 mg Pantoprazole Sodium (Protonix Ec Tab) 40 mg PO DAILY [facility] Last Admin: 07/12/18 08:20 Dose: 40 mg Promethazine HCl/Codeine (Phenergan/Codeine Oral Syrup) 5 ml PO Q6 PRN PRN Reason: Cough Tamsulosin HCl (Flomax) 0.4 mg PO HS [facility] Last Admin: 07/11/18 22:12 Dose: 0.4 mg Ticagrelor (Brilinta) 60 mg PO BID [facility] Last Admin: 07/12/18 08:21 Dose: 60 mg Zolpidem Tartrate (Ambien) 10 mg PO HS PRN PRN Reason: Insomnia Last Admin: 07/11/18 22:28 Dose: 10 mg - Labs Labs: 07/10/18 05:50 07/10/18 05:50 - Constitutional Appears: No Acute Distress - Head Exam Head Exam: NORMAL INSPECTION - Eye Exam Eye Exam: PERRL - ENT Exam ENT Exam: Normal Exam - Neck Exam Neck Exam: Normal Inspection - Respiratory Exam Respiratory Exam: Decreased Breath Sounds (at bases), Rhonchi (scattered), Wheezes (scattered) Additional comments: Dry crackles L base - Cardiovascular Exam Cardiovascular Exam: REGULAR RHYTHM - GI/Abdominal Exam GI & Abdominal Exam: Soft, Normal Bowel Sounds - Extremities Exam Extremities Exam: Normal Inspection - Back Exam Additional comments: Rashes on buttocks area - Neurological Exam Neurological Exam: Alert, Oriented x3. absent: Motor Sensory Deficit - Psychiatric Exam Psychiatric exam: Normal Mood - Skin Skin Exam: Warm Assessment and Plan (1) MRSA pneumonia Status: Resolved (2) COPD exacerbation Status: Acute (3) Herpes zoster Status: Acute (4) CAD (coronary artery disease) Status: Chronic (5) Hypercholesteremia Status: Chronic (6) ILD (interstitial lung disease) Status: Chronic (7) RA (rheumatoid arthritis) Status: Chronic (8) BPH (benign prostatic hyperplasia) Status: Acute - Assessment and Plan (Free Text) Plan: Continue Vanco, Duoneb, Solu-Medrol and rest of Tx.
[2018-07-13] MEDS: MethylPREDNISolone 40 mg Vial IVP SCH ×2 (00:22→09:41)
[2018-07-13] MEDS: Acetylcysteine 10% 4 ML IH SCH ×3 (05:15→11:45)
[2018-07-13] MEDS: Albuterol-Ipratrop 3 mg / 0.5 (3 ml) UD INH PRN ×2 (07:29→11:46)
[2018-07-13] MEDS: guaiFENesin-DM 600-30 mg ER Tab PO SCH (09:34)
[2018-07-13] MEDS: Pantoprazole 40 mg EC Tab PO SCH (09:35)
[2018-07-13 09:36] VITALS: BP 114/75; PULSE 72
[2018-07-13 11:15] VITALS: RESP 19; TEMP 97.9; O2SAT 97
--- NOTE | 2018-07-13 13:14 | CP.PCM.PN ---
Objective - Vital Signs/Intake and Output Vital Signs (last 24 hours): Temp Pulse Resp BP Pulse Ox 97.9 F 72 19 114/75 97 07/13/18 08:00 07/13/18 09:35 07/13/18 08:00 07/13/18 09:35 07/13/18 08:00 - Medications Medications: Current Medications Acetylcysteine (Mucomyst 10% 4ml) 2 ml IH RQ4 [facility] Last Admin: 07/13/18 11:45 Dose: Not Given Albuterol (Ventolin Hfa 90 Mcg/Actuation (8 G)) 2 puff INH RQ6 PRN PRN Reason: Shortness of Breath Last Admin: 07/07/18 14:12 Dose: 1 inhaler Albuterol/Ipratropium (Duoneb 3 Mg/0.5 Mg (3 Ml) Ud) 3 ml INH RQ4 PRN PRN Reason: Shortness of Breath Last Admin: 07/13/18 11:46 Dose: 3 ml Alprazolam (Xanax) 0.5 mg PO BID [facility] Last Admin: 07/13/18 09:33 Dose: 0.5 mg Aspirin (Ecotrin) 81 mg PO DAILY [facility] Last Admin: 07/13/18 09:35 Dose: 81 mg Atorvastatin Calcium (Lipitor) 40 mg PO HS [facility] Last Admin: 07/12/18 21:42 Dose: 40 mg Benzocaine/Menthol (Cepacol Sore Throat) 1 teagan PO Q4 PRN PRN Reason: Sore Throat Capsaicin (Trixaicin Cream) 1 applic TOP Q6 PRN PRN Reason: Rash Last Admin: 07/13/18 09:33 Dose: 1 applic Docusate Sodium (Colace) 100 mg PO Q12 PRN PRN Reason: Constipation Last Admin: 07/13/18 09:34 Dose: 100 mg Folic Acid (Folic Acid) 1 mg PO DAILY [facility] Last Admin: 07/13/18 09:35 Dose: 1 mg Guaifenesin/Dextromethorphan (Mucinex-Dm 600-30 Mg) 1 tab PO BID [facility] Last Admin: 07/13/18 09:34 Dose: 1 tab Hydroxychloroquine Sulfate (Plaquenil) 200 mg PO DAILY [facility]; Protocol Stop: 07/15/18 23:59 Last Admin: 07/13/18 09:35 Dose: 200 mg Vancomycin HCl 1 gm/ Sodium (Chloride) 250 mls @ 166.667 mls/hr IVPB Q12 [facility]; Protocol Last Admin: 07/13/18 10:21 Dose: 166.667 mls/hr Ibuprofen (Motrin Tab) 800 mg PO Q6 PRN PRN Reason: Pain, moderate (4-7) Lisinopril (Zestril) 10 mg PO DAILY [facility] Last Admin: 07/13/18 09:35 Dose: 10 mg Methylprednisolone (Solu-Medrol) 40 mg IVP Q8 [facility] Last Admin: 07/13/18 09:41 Dose: 40 mg Pantoprazole Sodium (Protonix Ec Tab) 40 mg PO DAILY [facility] Last Admin: 07/13/18 09:35 Dose: 40 mg Promethazine HCl/Codeine (Phenergan/Codeine Oral Syrup) 5 ml PO Q6 PRN PRN Reason: Cough Tamsulosin HCl (Flomax) 0.4 mg PO HS [facility] Last Admin: 07/12/18 21:42 Dose: 0.4 mg Ticagrelor (Brilinta) 60 mg PO BID [facility] Last Admin: 07/13/18 09:34 Dose: 60 mg Zolpidem Tartrate (Ambien) 10 mg PO HS PRN PRN Reason: Insomnia Last Admin: 07/12/18 22:57 Dose: 10 mg - Labs Labs: 07/10/18 05:50 07/10/18 05:50 Assessment and Plan (1) MRSA pneumonia Status: Resolved (2) COPD exacerbation Status: Acute (3) Herpes zoster Status: Acute (4) CAD (coronary artery disease) Status: Chronic (5) Hypercholesteremia Status: Chronic (6) ILD (interstitial lung disease) Status: Chronic (7) RA (rheumatoid arthritis) Status: Chronic (8) BPH (benign prostatic hyperplasia) Status: Acute
--- NOTE | 2018-07-13 15:21 | CP.PCM.DIS ---
Provider - Provider Date of Admission: 07/05/18 19:25 Attending physician: Kareem Son MD Consults: 07/06/18 05:06 Wound Care [Nursing Referral for Wound Care] Routine Comment: Physician Instructions: Reason For Exam: right buttock shingles Diagnosis - Discharge Diagnosis (1) MRSA pneumonia Status: Resolved (2) COPD exacerbation Status: Acute Priority: Medium (3) Herpes zoster Status: Acute Priority: High (4) CAD (coronary artery disease) Status: Chronic Priority: Medium (5) Hypercholesteremia Status: Chronic Priority: Medium (6) ILD (interstitial lung disease) Status: Chronic Priority: High (7) RA (rheumatoid arthritis) Status: Chronic Priority: Medium (8) BPH (benign prostatic hyperplasia) Status: Acute Hospital Course - Lab Results Lab Results: Most Recent Lab Values WBC 12.2 K/uL (4.8-10.8) H 07/10/18 05:50 RBC 3.50 Mil/uL (4.40-5.90) L 07/10/18 05:50 Hgb 10.2 g/dL (12.0-18.0) L 07/10/18 05:50 Hct 30.9 % (35.0-51.0) L 07/10/18 05:50 MCV 88.3 fl (80.0-94.0) 07/10/18 05:50 MCH 29.0 pg (27.0-31.0) 07/10/18 05:50 MCHC 32.9 g/dL (33.0-37.0) L 07/10/18 05:50 RDW 17.7 % (11.5-14.5) H 07/10/18 05:50 Plt Count 193 K/uL (130-400) D 07/10/18 05:50 MPV 10.0 fl (7.2-11.7) 07/10/18 05:50 Neut % (Auto) 94.5 % (50.0-75.0) H 07/10/18 05:50 Lymph % (Auto) 1.2 % (20.0-40.0) L 07/10/18 05:50 Sampson % (Auto) 4.2 % (0.0-10.0) 07/10/18 05:50 Eos % (Auto) 0.0 % (0.0-4.0) 07/10/18 05:50 Baso % (Auto) 0.1 % (0.0-2.0) 07/10/18 05:50 Neut # (Auto) 11.5 K/uL (1.8-7.0) H 07/10/18 05:50 Lymph # (Auto) 0.1 K/uL (1.0-4.3) L 07/10/18 05:50 Sampson # (Auto) 0.5 K/uL (0.0-0.8) 07/10/18 05:50 Eos # (Auto) 0.0 K/uL (0.0-0.7) 07/10/18 05:50 Baso # (Auto) 0.0 K/uL (0.0-0.2) 07/10/18 05:50 Neutrophils % (Manual) 96 % (42-75) H 07/10/18 05:50 Lymphocytes % (Manual) 1 % (20-50) L 07/10/18 05:50 Monocytes % (Manual) 3 % (0-10) 07/10/18 05:50 Toxic Granulation Present 07/10/18 05:50 Platelet Estimate Normal (NORMAL) 07/10/18 05:50 Hypochromasia (manual) Slight 07/10/18 05:50 Anisocytosis (manual) Slight 07/10/18 05:50 Schistocytes Slight 07/10/18 05:50 Sodium 133 mmol/l (132-148) 07/10/18 05:50 Potassium 4.4 MMOL/L (3.6-5.0) 07/10/18 05:50 Chloride 101 mmol/L (98-107) 07/10/18 05:50 Carbon Dioxide 28 mmol/L (22-30) 07/10/18 05:50 Anion Gap 8 (10-20) L 07/10/18 05:50 BUN 24 mg/dl (9-20) H 07/10/18 05:50 Creatinine 0.8 mg/dl (0.8-1.5) 07/10/18 05:50 Est GFR ( Amer) > 60 07/10/18 05:50 Est GFR (Non-Af Amer) > 60 07/10/18 05:50 Random Glucose 155 mg/dL (75-110) H 07/10/18 05:50 Calcium 8.1 mg/dL (8.4-10.2) L 07/10/18 05:50 Total Bilirubin 0.4 mg/dl (0.2-1.3) 07/10/18 05:50 AST 30 U/L (17-59) 07/10/18 05:50 ALT 50 U/L (21-72) 07/10/18 05:50 Alkaline Phosphatase 47 U/L (38-126) 07/10/18 05:50 Total Protein 5.0 G/DL (6.3-8.2) L 07/10/18 05:50 Albumin 2.8 g/dL (3.5-5.0) L 07/10/18 05:50 Globulin 2.2 gm/dL (2.2-3.9) 07/10/18 05:50 Albumin/Globulin Ratio 1.3 (1.0-2.1) 07/10/18 05:50 Discharge Exam - Head Exam Head Exam: NORMAL INSPECTION Discharge Plan - Follow Up Plan Condition: STABLE Disposition: HOME/ ROUTINE Instructions: Exacerbation of COPD (DC)
== END 2018-07-13 13:15 | disposition home or self-care (01) | DRG 178 ==
LOC: H.TCU 19:25
PROVIDERS: ADMIT Internal Medicine Pulmonary Disease; ATTEND Internal Medicine Pulmonary Disease
PROC: F07Z9FZ Gait Training/Functional Ambulation Treatment using Assistive, Adaptive, Supportive or Protective Equipment (ICD-10-PCS; principal; 2018-07-05)
PROC: 5A0955Z Assistance with Respiratory Ventilation, Greater than 96 Consecutive Hours (ICD-10-PCS; 2018-07-05)
DX: J15.212 Pneumonia due to Methicillin resistant Staphylococcus aureus (principal); J84.9 Interstitial pulmonary disease, unspecified; E78.00 Pure hypercholesterolemia, unspecified; M06.9 Rheumatoid arthritis, unspecified; I25.10 Atherosclerotic heart disease of native coronary artery without angina pectoris; N40.0 Benign prostatic hyperplasia without lower urinary tract symptoms; J43.9 Emphysema, unspecified; B02.9 Zoster without complications; Z95.5 Presence of coronary angioplasty implant and graft; Z87.891 Personal history of nicotine dependence